=== PATIENT | female | born 1935 | race Caucasian/White ===

== ENCOUNTER 2016-08-26 07:07 | Day surgery (SDC) | payer BC ==
[2016-08-10 13:44] VITALS: BMI 27.0
--- NOTE | 2016-08-10 14:30 | PAT Medication Instructions ---
Service Date Aug 10, 2016. Current Home Medication List Acetaminophen (Tylenol), 1,000 MG PO BID PRN Allopurinol (Zyloprim *), 1 TAB PO QAM Aspirin (Aspirin *), 1 TAB PO QAM Calcium/Vitamin D (Os-Rigoberto 500 Plus D), 1 TAB PO QAM Ezetimibe/Simvastatin (Vytorin 10MG/40MG), 1 TAB PO HS Furosemide (Lasix), 1 MG PO PRN Isosorbide Dinitrate (Isordil), 1 TAB PO QAM Metoprolol Tartrate (Lopressor) (Lopressor), 25 MG PO BID Nitroglycerin (Nitrostat), 0.4 MG UT PRN Prednisolone Acetate (Ophth) (Pred Forte 1% Oph), 1 DROPS OPR BID Medication Instructions For Your Scheduled Surgery Aspirin (Aspirin *), 1 TAB PO QAM (patient will check with cardio for instructions) Nitroglycerin (Nitrostat), 0.4 MG UT PRN (if needed) - Hold the following medications the morning of surgery: Furosemide (Lasix), 1 MG PO PRN Calcium/Vitamin D (Os-Rigoberto 500 Plus D), 1 TAB PO QAM - Take the following medications the morning of surgery with a sip of water: Prednisolone Acetate (Ophth) (Pred Forte 1% Oph), 1 DROPS OPR BID Metoprolol Tartrate (Lopressor) (Lopressor), 25 MG PO BID Isosorbide Dinitrate (Isordil), 1 TAB PO QAM Allopurinol (Zyloprim *), 1 TAB PO QAM Acetaminophen (Tylenol), 1,000 MG PO BID PRN (if needed) - Take the following medications as scheduled the night before surgery: Prednisolone Acetate (Ophth) (Pred Forte 1% Oph), 1 DROPS OPR BID Metoprolol Tartrate (Lopressor) (Lopressor), 25 MG PO BID Ezetimibe/Simvastatin (Vytorin 10MG/40MG), 1 TAB PO HS Acetaminophen (Tylenol), 1,000 MG PO BID PRN : If you have any questions please call us at [phone] or [phone] ( [place]) or [phone]
[2016-08-10 14:58] LABS: BASO % 0.3 %; BASO ABS # 0.02 K/uL (0-0.2); COMPLETE YES; EOS % 2.1 %; HEMATOCRIT 39.5 % (37-47); IG% 0.3 %; LYMPH % 22.4 %; LYMPH ABS # 1.73 K/uL (1.2-3.4); MEAN CELL VOLUME 93.6 fL (80-100); MEAN CORPUSCULAR HGB CONC 33.2 g/dl (32-36); MEAN PLATELET VOLUME 10.5 fL (7.4-10.4); MONO % 12.1 %; NEUT % 62.8 %; PLATELET COUNT 107 K/uL (130-400); RED BLOOD COUNT 4.22 M/uL (4.2-5.4); WHITE BLOOD COUNT 7.71 K/uL (4.8-10.8)
[2016-08-10 15:12] LABS: PARTIAL THROMBOPLASTIN RATIO 1.1; PROTHROMBIN TIME (PATIENT) 10.4 SECONDS (9.0-12.0)
[2016-08-10 15:24] LABS: BUN/CREATININE RATIO 24.3 (10-20); CREATININE 0.87 mg/dl (0.60-1.20); POTASSIUM 4.5 mmol/L (3.5-5.1)
[~2016-08-26] VITALS: Ht 157.5 cm; Wt 68.3 kg
[~2016-08-26 07:07] MED LIST: ACET-1256 PO; ALL300 PO; ASPEC325 PO; CALC500C70 PO; CLINDAMYCIN 600 MG/54 ML D5W 54 ML IV SCH; EZET10TA41 PO; FURO-85 PO; ISOS30TA51 PO; LACTATED RINGER'S 1000ML IV SCH; METO25TA56 PO; NTRGSL/4 UT; PRED1SUS3 OPR
[2016-08-26] MEDS ORDERED: FENTANYL CITRATE INJ 50 MCG/1 ML 2 ML VIAL ONE (07:40)
[2016-08-26 08:04] VITALS: BP 121/84; PULSE 41; TEMP 36.5; O2SAT 94; Ht 157.5 cm; Wt 68.3 kg
[2016-08-26] MEDS ORDERED: PROPOFOL IV EMULSION 10 MG/ML 20 ML VIAL IV ONE (08:08)
[2016-08-26] MEDS ORDERED: LIDOCAINE HCL 2% 2 ML VIAL (20MG/ML) ONE (08:08)
[2016-08-26] MEDS ORDERED: ONDANSETRON INJ 2 MG/ML 2 ML VIAL ONE (08:36)
[2016-08-26] MEDS ORDERED: DEXAMETHASONE SOD INJ 4 MG/ML VIAL ONE (08:36)
[2016-08-26] MEDS ORDERED: PHENYLEPHRINE 100MCG/ML 5ML SYR IV PRN (08:45)
[2016-08-26] MEDS ORDERED: NALOXONE HCL 0.4 MG/1 ML VIAL/CARP IV PRN (08:45)
[2016-08-26] MEDS ORDERED: EpHEDrine SULFATE INJ 50 MG/ML AMP IV PRN (08:45)
[2016-08-26] MEDS ORDERED: HYDROmorphone INJ 2 MG/ML SYR/VIAL IV PRN (08:45)
[2016-08-26] MEDS ORDERED: ATROPINE SULFATE 0.1 MG/ML 5ML SYR IV PRN (08:45)
[2016-08-26] MEDS ORDERED: FLUMAZENIL 0.1 MG/1 ML 10 ML VIAL IV PRN (08:45)
[2016-08-26] MEDS ORDERED: MEPERIDINE HCL 25 MG/ML CARP IV PRN (08:45)
[2016-08-26] MEDS ORDERED: LABETALOL HCL IV 5 MG/ML 20ML IV PRN (08:45)
[2016-08-26] MEDS ORDERED: ONDANSETRON INJ 2 MG/ML 2 ML VIAL IV PRN ×2 (08:45→10:00)
--- NOTE | 2016-08-26 08:54 | History & Physical Bridge Note ---
H&P Re-Evaluation Bridge Note: I have examined the patient, reviewed the History & Physical and in the interval since the performance of the History & Physical I have noted the following changes of clinical significance: No changes noted
[2016-08-26] MEDS ORDERED: HYDR-5688 PO (08:57)
--- NOTE | 2016-08-26 08:59 | Discharge Instructions ---
Discharge Instructions Admission Reason for Admission: Right Inguinal Hernia Discharge Discharge Diagnosis / Problem: right inguinal hernia Discharge Goals Goal(s): Decrease discomfort, Improve function Activity Recommendations Activity Limitations: as noted below Lifting Limitations: no more than 10 pounds Exercise/Sports Limitations: until after follow-up appointment Shower/Bathe: tomorrow . Instructions / Follow-Up Instructions / Follow-Up follow up with Dr. Quijano in 1-2 weeks Current Hospital Diet Patient's current hospital diet: Discharge Diet Recommended Diet: Regular Diet Pending Studies Studies pending at discharge: no Medical Emergencies . Who to Call and When: Medical Emergencies: If at any time you feel your situation is an emergency, please call 911 immediately. . Non-Emergent Contact Non-Emergency issues call your: Primary Care Provider, Surgeon Call Non-Emergent contact if: temperature is above 101, your pain is not controlled, wound has increased drainage, wound has increased redness . "Provider Documentation" section prepared by Je Quijano. VTE Core Measure Inpt VTE Proph given/why not?: Unfractionated heparin SQ
[2016-08-26] MEDS ORDERED: PHENYLEPHRINE 100MCG/ML 5ML SYR ONE (09:20)
[2016-08-26] MEDS ORDERED: BUPIVACAINE/EPINEPHRINE 0.5% MPF 1:200,000 30 ML VIAL INJ ONE (09:45)
--- NOTE | 2016-08-26 09:46 | [facility] Operative Report ---
Operative Report Operative Date Aug 26, 2016. Pre-Operative Diagnosis Right inguinal hernia Post-Operative Diagnosis right inguinal hernia Procedure(s) Performed open RIH repair with mesh Surgeon Dr Quijano Human Development Professor Surgeon(s) Raul Acosta PA-C Estimated Blood Loss 10ML Findings right inguinal hernia Specimens NONE Anesthesia LMA Complication(s) None Disposition Recovery Room / PACU I attest to the content of the Intraoperative Record and any orders documented therein. Any exceptions are noted below.
[2016-08-26] MEDS ORDERED: LACTATED RINGER'S 1000ML 1,000 ML IV SCH (09:57)
[2016-08-26] MEDS ORDERED: HYDROCODONE/ACETAMOPHEN 5/325MG TAB PO PRN (10:00)
[2016-08-26] MEDS ORDERED: MoRPHine SULFATE 4 MG/ML 1 ML CARP\\VIAL IV PRN (10:00)
[2016-08-26] MEDS: FENTANYL CITRATE INJ 50 MCG/1 ML 2 ML VIAL IV PRN ×2 (10:05→10:10)
--- NOTE | 2016-08-26 10:34 | Anesthesiology Progress Note ---
Anesthesia Post Op Note Date & Time Aug 26, 2016 at 10:33 Vital Signs Pain Intensity: 2 Vital Signs Past 12 Hours Date Time Temp Pulse Resp B/P Pulse Ox O2 Delivery O2 Flow Rate FiO2 08/26/16 10:30 36.4 60 16 113/57 95 Room Air 08/26/16 10:20 60 16 104/59 95 Mask 10 08/26/16 10:10 60 16 107/61 98 Mask 10 08/26/16 10:01 36.6 67 16 135/77 100 Mask 10 08/26/16 08:04 36.5 41 20 121/84 94 Room Air Notes Mental Status: alert / awake / arousable, participated in evaluation Pt Amnestic to Procedure: Yes Nausea / Vomiting: adequately controlled Pain: adequately controlled Airway Patency, RR, SpO2: stable & adequate BP & HR: stable & adequate Hydration State: stable & adequate Anesthetic Complications: no major complications apparent
[2016-08-26 10:45] VITALS: BP 106/57; PULSE 61; TEMP 36.5; O2SAT 92
--- NOTE | 2016-08-26 10:49 | OPERATIVE REPORT ---
DATE OF OPERATION: 08/26/2016 PREOPERATIVE DIAGNOSIS: Symptomatic right inguinal hernia. POSTOPERATIVE DIAGNOSIS: Same. PROCEDURE: Open right inguinal hernia repair with mesh. SURGEON: Dr. Quijano. MAP CLERK: Cruz Acosta PA-C. ESTIMATED BLOOD LOSS: 10 mL. COMPLICATIONS: No immediate. ANESTHESIA: General. The patient tolerated the procedure well. OPERATION AND FINDINGS: OPERATIVE NOTE: After informed consent was obtained, the patient was taken to the operating suite, placed in supine position. After successful placement of laryngeal mask airway the right lower quadrant was sterilely prepped and draped in usual fashion. An inguinal incision was made with an 11 blade scalpel and carried down through the soft tissue using electrocautery. The external oblique aponeurosis was skeletonized. It was opened with a fresh scalpel and incised distally through the external ring using Metzenbaum scissors as well as for several centimeters proximally. Once in the inguinal canal we her round ligament from the floor of the canal. There was a very large chronic hernia sac extending almost down into the vagina. We were able to grab the sac and use traction, countertraction and a little bit of electrocautery to slowly tease it away from surrounding structures. Because of its intermittent nature with the round ligament, we we decided to go ahead and divide the round ligament. After doing this we were then able to easily reduce the hernia sac back into the abdominal cavity. After doing that we controlled several small bleeding points using electrocautery. We thoroughly irrigated the inguinal canal. We used a piece of polypropylene mesh as an onlay securing it distally to Brennan's ligament laterally along the shelving portion of Poupart's ligament and medially along the midline abdominal musculature. The mesh laid nice and flat and tension free. Once this was done, we thoroughly irrigated the wound. I used some Marcaine around the edges of the mesh for postoperative analgesia. I then closed the external oblique aponeurosis using 2-0 Vicryl in a running fashion. Soft tissue was irrigated and closed using 3-0 Vicryl and 4-0 Monocryl. Some additional Marcaine was injected around the skin and glue was used as a dressing. The patient was awakened, extubated, and transferred to recovery in stable condition. I attest to the content of the Intraoperative Record and any orders documented therein. Any exceptio ns are noted below.
[2016-08-26 11:15] VITALS: BP 107/58; PULSE 61; O2SAT 96
[2016-08-26 11:45] VITALS: BP 100/51; PULSE 62; TEMP 36.5; O2SAT 98
== END 2016-08-26 12:20 | disposition home or self-care (01) ==
LOC: C.ACU 07:07
PROVIDERS: ATTEND Surgery
DX: K40.90 Unilateral inguinal hernia, without obstruction or gangrene, not specified as recurrent (principal); I20.9 Angina pectoris, unspecified; N18.2 Chronic kidney disease, stage 2 (mild); I45.9 Conduction disorder, unspecified; M10.9 Gout, unspecified; D75.82 Heparin induced thrombocytopenia (HIT); E78.00 Pure hypercholesterolemia, unspecified; I34.0 Nonrheumatic mitral (valve) insufficiency; I44.1 Atrioventricular block, second degree; M85.80 Other specified disorders of bone density and structure, unspecified site; I73.9 Peripheral vascular disease, unspecified; E55.9 Vitamin D deficiency, unspecified

== ENCOUNTER → 2016-10-13 | Outpatient (CLI) | payer BC ==
[~2016-10-13] MED LIST changes: +ASPI325T45 PO; -CLINDAMYCIN 600 MG/54 ML D5W 54 ML IV SCH; +HYDR-5688 PO; -LACTATED RINGER'S 1000ML IV SCH; +OXYC-57 PO
--- NOTE | 2016-10-13 12:37 | MAMMOGRAPHY REPORT ---
BILATERAL DIGITAL SCREENING MAMMOGRAM WITH CAD: 10/13/2016 TECHNIQUE: Current study was also evaluated with a Computer Aided Detection (CAD) system. Bilatera l CC and MLO views were obtained. COMPARISON: Comparison is made to exams dated: 10/13/2015 mammogram, 10/11/2014 mammogram, 10/09/2012 mammogram, 10/05/2010 mammogram, 10/10/2013 mammogram, and 10/06/2011 mammogram - [facility]. BREAST COMPOSITION: The tissue of both breasts is almost entirely fatty. FINDINGS: No suspicious masses, calcifications, or areas of architectural distortion are noted in e ither breast. There has been no significant interval change compared to prior exams. IMPRESSION: ACR BI-RADS CATEGORY 1: NEGATIVE There is no mammographic evidence of malignancy. A 1 year screening mammogram is recommended. The p atient will receive written notification of the results. Approximately 10% of breast cancers are not detected with mammography. A negative mammographic repor t should not delay biopsy if a clinically suggestive mass is present. Serene Frank M.D. ah/:10/13/2016 12:03:02 Animal Care Attendant: Carolynn BAÑUELOS(R)(M), [facility] letter sent: Normal 1/2 BI-RADS Code: ACR BI-RADS Category 1: Negative
== END | disposition home or self-care (01) ==
LOC: EDBD → C.MAMM 11:06
PROVIDERS: ATTEND Obstetrics & Gynecology
DX: Z12.31 Encounter for screening mammogram for malignant neoplasm of breast (principal); I10 Essential (primary) hypertension; E55.9 Vitamin D deficiency, unspecified; R80.9 Proteinuria, unspecified; N18.2 Chronic kidney disease, stage 2 (mild)

== ENCOUNTER → 2016-10-13 | Outpatient (CLI) | payer BC ==
[2016-10-13 14:16] LABS: MEAN CELL VOLUME 93.2 fL (80-100); MEAN CORPUSCULAR HEMOGLOBIN 30.7 pg (25-34); MEAN CORPUSCULAR HGB CONC 32.9 g/dl (32-36); MEAN PLATELET VOLUME 10.8 fL (7.4-10.4); PLATELET COUNT 118 K/uL (130-400)
[2016-10-13 14:52] LABS: URINE APPEARANCE CLEAR (CLEAR); URINE BILIRUBIN NEG (NEG); URINE COLOR YELLOW; URINE NITRITE NEG (NEG); URINE SPECIFIC GRAVITY 1.014 (1.000-1.030); UROBILINOGEN NEG (NEG)
[2016-10-13 14:57] LABS: MANUAL MICROSCOPIC REQUIRED? NO; REVIEW REQ? NO
[2016-10-13 15:10] LABS: BLOOD UREA NITROGEN 25 mg/dl (7-18); BUN/CREATININE RATIO 27.7 (10-20); CALCIUM 9.2 mg/dl (8.5-10.1); CARBON DIOXIDE 29 mmol/L (21-32); CHLORIDE 106 mmol/L (98-107); CREATININE 0.89 mg/dl (0.60-1.20); GLUCOSE 72 mg/dl (70-99); POTASSIUM 4.6 mmol/L (3.5-5.1); SODIUM 143 mmol/L (136-145)
[2016-10-13 15:11] LABS: PHOSPHORUS 2.3 mg/dl (2.5-4.9)
[2016-10-13 15:21] LABS: URINE PROTIEN/CREAT RATIO 0.4 (0-0.2); URINE TOTAL PROTEIN 17.1 mg/dl (0-11.9)
== END | disposition home or self-care (01) ==
LOC: C.LAB1850 13:16
PROVIDERS: ATTEND Internal Medicine Nephrology
DX: I10 Essential (primary) hypertension (principal); R80.9 Proteinuria, unspecified; E55.9 Vitamin D deficiency, unspecified; N18.2 Chronic kidney disease, stage 2 (mild)

== ENCOUNTER → 2017-02-02 | Outpatient (CLI) | payer BC ==
[~2017-02-02] MED LIST changes: -ISOS30TA51 PO; +ISR/30 PO
== END | disposition home or self-care (01) ==
LOC: C.PAPS 14:30
PROVIDERS: ATTEND Obstetrics & Gynecology
DX: Z12.4 Encounter for screening for malignant neoplasm of cervix (principal)

== ENCOUNTER 2017-02-13 13:50 | Inpatient (IN) | payer BC, OTHER ==
[~2017-02-13] VITALS: Ht 157.5 cm; Wt 70.0 kg
[~2017-02-13 13:50] MED LIST changes: -ASPI325T45 PO; +ISOS30TA51 PO; -ISR/30 PO; -OXYC-57 PO
[2017-02-13] MEDS ORDERED: ASPIRIN 81 MG CHEW PO STA (14:10)
[2017-02-13] MEDS ORDERED: ONDANSETRON INJ 2 MG/ML 2 ML VIAL IV STA (14:20)
[2017-02-13] MEDS ORDERED: FENTANYL CITRATE INJ 50 MCG/1 ML 2 ML VIAL IV STA (14:20)
--- NOTE | 2017-02-13 14:25 | EMERGENCY ROOM VISIT NOTE ---
History Report prepared by Ligiaibmandy: Reji Navarrete Under the Supervision of: Dr. Renée Sinha M.D. First contact with patient: 14:09 Chief Complaint: CARDIAC ASSESSMENT Stated Complaint: CRAMPS IN CHEST AND STOMACH Nursing Triage Summary: pt to the ED with c/o epigastric pain and cramping since yesterday and today started to have nausea History of Present Illness The patient is an 81 year old female who presents to the Emergency Room with complaints of persistent epigastric abdominal pain since yesterday. The patient describes sharp pain. The abdomen is not painful to touch. The pain does not move. The patient also complains of chills that started upon arrival to the ED, per family. She did have diarrhea yesterday morning but not since then. She states that she is breathing fast secondary to chills. The patient denies fevers , chest pain, radiation to the arms or jaw, back pain, nausea, or vomiting. The patient has a history of [place] and has a pacemaker. Family of the patient notes that she was bereaved approximately one year ago. Source of History: patient, family Onset: yesterday Position: abdomen (epigastric) Quality: sharp Timing: other (persistent) Associated Symptoms: + chills, + diarrhea, No fevers, No chest pain, No nausea, No vomiting, No back pain Review of Systems See HPI for pertinent positives & negatives. A total of 10 systems reviewed and were otherwise negative. 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 (13) Mitral Valve Disorder (14) Old Myocardial Infarct (15) Osteoporosis Nos (16) Pancreatitis Family History No pertinent family history Social History Smoking Status: Former Smoker Alcohol Use: none Marital Status: Occupation Status: retired Current/Historical Medications Scheduled Allopurinol (Allopurinol), 300 MG PO DAILY Aspirin (Aspirin), 325 MG PO DAILY Calcium/Vitamin D (Os-Rigoberto 500 Plus D), 1 TAB PO QAM Ezetimibe/Simvastatin (Vytorin 10MG/40MG), 1 TAB PO HS Furosemide (Lasix), 20 MG PO DAILY Isosorbide Dinitrate (Isordil), 30 MG PO QAM Metoprolol Tartrate (Lopressor) (Lopressor), 25 MG PO BID Nitroglycerin (Nitrostat), 0.4 MG UT PRN Prednisolone Acetate (Ophth) (Pred Forte 1% Oph), 1 DROPS OPR BID Scheduled PRN Acetaminophen (Tylenol), 1,000 MG PO BID PRN Allergies Coded Allergies: Penicillins (Verified Allergy, Intermediate, ITCHING, SYNCOPE, 02/13/17) Heparin (Verified Adverse Reaction, Unknown, NEUTROPENIA, 02/13/17) Physical Exam Vital Signs Date Time Temp Pulse Resp B/P (MAP) Pulse Ox O2 Delivery O2 Flow Rate FiO2 02/13/17 18:05 72 02/13/17 17:39 74 18 100/47 96 Nasal Cannula 2.0 02/13/17 16:26 67 18 99/53 98 Nasal Cannula 2.0 02/13/17 15:04 61 18 110/55 96 Nasal Cannula 2.0 02/13/17 14:40 96 Nasal Cannula 3.0 02/13/17 14:07 90 02/13/17 13:51 36.6 93 18 158/71 96 Room Air Physical Exam Vital signs reviewed. General: Elderly and somewhat ill-appearing female, rigors noted, in no significant distress. HEENT: No scleral icterus, PERRLA, neck supple. Atraumatic. Cardiovascular: Regular rate and rhythm, no extra sounds. Pacemaker present left anterior chest. Pulmonary: Clear to auscultation bilaterally, normal work of breathing. Abdomen: Mild diffuse tenderness to the abdomen, no rebound or guarding. Musculoskeletal: Atraumatic, no peripheral edema. Neurologic: Patient awake alert and oriented x 3, full strength in all 4 extremities. Cranial nerves 2 through 12 grossly intact. Skin: Warm, dry, no rash Medical Decision & Procedures ER Provider Diagnostic Interpretation: X-ray results as stated below per interpretation by me and the radiologist: Radiology results as stated below per my review and radiologist interpretation: SINGLE VIEW CHEST CLINICAL HISTORY: Atypical chest pain. FINDINGS: An AP, portable, upright chest radiograph is compared to study dated 12/16/2015. The examination is degraded by portable technique and patient rotation. A 2-lead cardiac pacemaker is unchanged in position and partially obscures the left upper chest. The heart is enlarged and there is atherosclerotic calcification of the thoracic aorta. There is mild congestion of the central pulmonary vasculature. Bibasilar atelectasis is noted. No airspace consolidation, large pleural effusion, or pneumothorax is seen. The skeletal structures are osteopenic. The bony thorax is grossly intact. IMPRESSION: 1. Cardiomegaly and cardiac pacemaker. There is mild pulmonary vascular congestion. 2. No airspace consolidation is seen typical for pneumonia and no large pleural effusion is identified. Electronically signed by: Remberto Baker M.D. 02/13/2017 2:49 PM Dictated Date/Time: 02/13/2017 2:48 PM KUB CLINICAL HISTORY: Generalized abdominal pain. FINDINGS: An AP, portable, supine abdominal radiograph is correlated with abdominal CT dated 01/08/2014. There is a nonobstructed abdominal bowel gas pattern noting moderate colonic fecal retention. No evidence of intraperitoneal free air is seen on this supine examination. There are no abnormal abdominal calcifications. The skeletal structures are osteopenic. Advanced lumbosacral spondylosis is noted. The heart is enlarged and pacemaker leads are observed. IMPRESSION: Nonobstructed abdominal bowel gas pattern noting moderate constipation. Electronically signed by: Remberto Baker M.D. 02/13/2017 2:48 PM Dictated Date/Time: 02/13/2017 2:47 PM ULTRASOUND RIGHT UPPER QUADRANT ABDOMEN CLINICAL HISTORY: Epigastric abdominal pain. COMPARISON STUDY: Abdominal CT dated 01/08/2014. KUB dated 02/13/2017. TECHNIQUE: Real-time, grayscale, and color flow sonography of the right upper quadrant of the abdomen was performed. Images are reviewed in the transverse and longitudinal planes. FINDINGS: Liver: The liver is normal in size and slightly heterogeneous in echotexture. There is mild central intrahepatic biliary ductal dilatation. The main portal vein is patent. Gallbladder: The gallbladder is distended. No shadowing gallstones are seen.. The gallbladder wall is thickened and edematous measuring up to 5 mm. Minimal sludge is noted. Trace pericholecystic fluid is identified. A sonographic Menchaca's sign is equivocal as the patient received analgesia. The common bile duct measures up to 0.6 cm in diameter. Pancreas: Visualized portions of the pancreatic head and body are normal in appearance. The splenic vein is patent. Right kidney: Survey images of the right kidney demonstrate cortical atrophy. There is no hydronephrosis. Ascites: None. IMPRESSION: The gallbladder is distended, with associated gallbladder wall thickening and edema. Pericholecystic fluid is noted. No shadowing gallstones are identified and a sonographic Menchaca's sign is equivocal. Findings are concerning for acute cholecystitis. Surgical consultation is advised. Consider a nuclear hepatobiliary scan for further assessment if cholecystitis does not fit the clinical presentation. Electronically signed by: Remberto Baker M.D. 02/13/2017 5:03 PM Dictated Date/Time: 02/13/2017 4:58 PM Laboratory Results Test 02/13/17 14:08 02/13/17 14:18 02/13/17 14:58 Direct Bilirubin 2.2 mg/dl (0-0.2) Total Creatine Kinase 73 U/L (26-192) Creatine Kinase MB 1.2 ng/ml (0.5-3.6) Creatine Kinase MB Ratio 1.6 (0-3.0) Bedside Troponin I < 0.030 ng/ml (0-0.045) Immature Granulocyte % (Auto) 0.5 % White Blood Count 9.53 K/uL (4.8-10.8) Red Blood Count 4.30 M/uL (4.2-5.4) Hemoglobin 13.7 g/dL (12.0-16.0) Hematocrit 40.9 % (37-47) Mean Corpuscular Volume 95.1 fL (80-100) Mean Corpuscular Hemoglobin 31.9 pg (25-34) Mean Corpuscular Hemoglobin Concent 33.5 g/dl (32-36) Platelet Count 76 K/uL (130-400) Mean Platelet Volume 10.9 fL (7.4-10.4) Neutrophils (%) (Auto) 96.2 % Lymphocytes (%) (Auto) 2.0 % Monocytes (%) (Auto) 1.2 % Eosinophils (%) (Auto) 0.0 % Basophils (%) (Auto) 0.1 % Neutrophils # (Auto) 9.17 K/uL (1.4-6.5) Lymphocytes # (Auto) 0.19 K/uL (1.2-3.4) Monocytes # (Auto) 0.11 K/uL (0.11-0.59) Eosinophils # (Auto) 0.00 K/uL (0-0.5) Basophils # (Auto) 0.01 K/uL (0-0.2) Immature Granulocyte # (Auto) 0.05 K/uL (0.00-0.02) Laboratory results per my review. Medications Administered Medications (Trade) Dose Ordered Sig/Casey Route Start Time Stop Time Status Last Admin Dose Admin Fentanyl Citrate (Fentanyl Inj) 50 mcg NOW STAT IV 02/13/17 14:20 02/13/17 14:21 DC 02/13/17 14:20 50 MCG Ondansetron HCl (Zofran Inj) 4 mg NOW STAT IV 02/13/17 14:20 02/13/17 14:21 DC 02/13/17 14:20 4 MG Ciprofloxacin/ Dextrose (Cipro / D5W) 400 mg NOW STAT IV 02/13/17 15:19 02/13/17 15:20 DC 02/13/17 16:15 400 MG Metronidazole (Flagyl / Nss) 500 mg NOW STAT IV 02/13/17 15:19 02/13/17 15:20 DC 02/13/17 16:16 500 MG Sodium Chloride 1,000 ml @ 150 mls/hr Q6H40M IV 02/13/17 17:39 03/15/17 17:38 02/14/17 19:13 150 MLS/HR Acetaminophen 650 mg/Empty Bag 65 ml @ 260 mls/hr Q6H PRN IV 02/13/17 17:45 02/14/17 12:21 DC 02/14/17 11:48 260 MLS/HR ECG Indication: abdominal pain Rate (beats per minute): 99 Rhythm: other (atrially paced rhythm with prolonged AV conduction) Findings: other (previous inferior infarct and anterolateral infarct) ED Course 1415: Past medical records reviewed. The patient was evaluated in room C8. A complete history and physical examination was performed. 1420: Zofran 4 mg IV, Fentanyl 50 mcg IV. 1519: Flagyl / NSS 500 mg IV, Cipro / D5w 400 mg IV. 1734: Discussed the case with Dr. Odell, [facility]. The patient will be evaluated. 1735: Updated the patient. She understands and agrees with the plan. 174: Discussed the case with Dr. Dexter, General Surgeon. He is aware of the case. 175: Discussed the case with Dr. San, Telegraph Office Manager, He is aware of the case. Medical Decision Differential diagnosis: Etiologies such as acute coronary syndrome, appendicitis, diverticulitis, PUD, biliary pathology, UTI, pancreatitis, obstruction, mesenteric ischemia, aortic pathology, infections, inflammatory bowel disease, renal colic, as well as others were entertained. Medication Reconciliation: I attest that I have personally reviewed the patient' s current medication list. Blood Pressure Screening: Patient was found to have low blood pressure on screening and does not require follow-up. This patient was evaluated and appeared to be in no significant distress. IV access was obtained and laboratory work was drawn. The patient was placed on the barrel header and found to be in a paced rhythm. Patient's laboratory work reveals an obstructive biliary picture with an elevated lipase consistent with pancreatitis. Ultrasound was performed and reveals no clear stone obstructing. Gallbladder is edematous and consistent with acute cholecystitis. I did explain the findings to the patient and her son. She was continued on IV hydration, feeling relieved after IV fentanyl and Zofran. Patient was started on IV Cipro and Flagyl secondary to the penicillin allergy. Case was discussed with Dr. Dexter in general surgery, Dr. San of gastroenterology and Dr. Odell of the hospitalist service. MRCP was originally ordered however the patient is not able to have this study secondary to her pacemaker. Consults Time Called: 173 Consulting Physician: Dr. Odell, [facility] [place] Returned Call: 173 The patient will be evaluated. Additional Consults: Time Called: 1730 Consulted Physician: Dr. Dexter, General Surgeon Returned Call: [phone] Additional Comments: He is aware of the case. Time Called: 1730 Consulted Physician: Dr. San, Telegraph Office Manager Returned Call: [phone] Additional Comments: He is aware of the case. Impression Primary Impression: Acute pancreatitis Additional Impression: Cholecystitis Scribe Attestation The scribe's documentation has been prepared under my direction and personally reviewed by me in its entirety. I confirm that the note above accurately reflects all work, treatment, procedures, and medical decision making performed by me. Departure Information Dispostion Being Evaluated By Hospitalist Referrals Fco Vazquez M.D. (PCP) Patient Instructions [facility] Problem Qualifiers Primary Impression: Acute pancreatitis Pancreatitis type: biliary Acute pancreatitis complication: unspecified Qualified Codes: K85.10 - Biliary acute pancreatitis without necrosis or infection
[2017-02-13 14:26] LABS: POTASSIUM 3.4 mmol/L (3.5-5.1)
[2017-02-13 14:31] LABS: CALCIUM 9.1 mg/dl (8.5-10.1); CREATININE 1.2 mg/dl (0.60-1.20)
[2017-02-13 14:39] LABS: CKMB/CK RATIO 1.6 (0-3.0)
--- NOTE | 2017-02-13 14:49 | DIAGNOSTIC IMAGING REPORT ---
KUB CLINICAL HISTORY: Generalized abdominal pain. FINDINGS: An AP, portable, supine abdominal radiograph is correlated with abdominal CT dated 01/08/2014. There is a nonobstructed abdominal bowel gas pattern noting moderate colonic fecal retention. No evidence of intraperitoneal free air is seen on this supine examination. There are no abnormal abdominal calcifications. The skeletal structures are osteopenic. Advanced lumbosacral spondylosis is noted. The heart is enlarged and pacemaker leads are observed. IMPRESSION: Nonobstructed abdominal bowel gas pattern noting moderate constipation. Electronically signed by: Remberto Baker M.D. 02/13/2017 2:48 PM Dictated Date/Time: 02/13/2017 2:47 PM
--- NOTE | 2017-02-13 14:51 | DIAGNOSTIC IMAGING REPORT ---
SINGLE VIEW CHEST CLINICAL HISTORY: Atypical chest pain. FINDINGS: An AP, portable, upright chest radiograph is compared to study dated 12/16/2015. The examination is degraded by portable technique and patient rotation. A 2-lead cardiac pacemaker is unchanged in position and partially obscures the left upper chest. The heart is enlarged and there is atherosclerotic calcification of the thoracic aorta. There is mild congestion of the central pulmonary vasculature. Bibasilar atelectasis is noted. No airspace consolidation, large pleural effusion, or pneumothorax is seen. The skeletal structures are osteopenic. The bony thorax is grossly intact. IMPRESSION: 1. Cardiomegaly and cardiac pacemaker. There is mild pulmonary vascular congestion. 2. No airspace consolidation is seen typical for pneumonia and no large pleural effusion is identified. Electronically signed by: Remberto Baker M.D. 02/13/2017 2:49 PM Dictated Date/Time: 02/13/2017 2:48 PM
[2017-02-13] MEDS ORDERED: ALL300 PO (15:05)
[2017-02-13] MEDS ORDERED: ASPI325T45 PO (15:06)
[2017-02-13] MEDS ORDERED: METRONIDAZOLE 500MG / 100ML NSS IV STA (15:19)
[2017-02-13] MEDS ORDERED: CIPROFLOXACIN 400MG / 200ML D5W IV STA (15:19)
[2017-02-13 15:27] LABS: HEMATOCRIT 40.9 % (37-47); MEAN CELL VOLUME 95.1 fL (80-100); MEAN CORPUSCULAR HEMOGLOBIN 31.9 pg (25-34); MEAN CORPUSCULAR HGB CONC 33.5 g/dl (32-36); MEAN PLATELET VOLUME 10.9 fL (7.4-10.4); PLATELET COUNT 76 K/uL (130-400); WHITE BLOOD COUNT 9.53 K/uL (4.8-10.8)
[2017-02-13 15:53] LABS: BASO % 0.1 %; BASO ABS # 0.01 K/uL (0-0.2); COMPLETE YES; IG% 0.5 %; LYMPH ABS # 0.19 K/uL (1.2-3.4); MONO % 1.2 %; NEUT % 96.2 %; PLT ESTIMATE DECREASED
--- NOTE | 2017-02-13 17:04 | DIAGNOSTIC IMAGING REPORT ---
ULTRASOUND RIGHT UPPER QUADRANT ABDOMEN CLINICAL HISTORY: Epigastric abdominal pain. COMPARISON STUDY: Abdominal CT dated 01/08/2014. KUB dated 02/13/2017. TECHNIQUE: Real-time, grayscale, and color flow sonography of the right upper quadrant of the abdomen was performed. Images are reviewed in the transverse and longitudinal planes. FINDINGS: Liver: The liver is normal in size and slightly heterogeneous in echotexture. There is mild central intrahepatic biliary ductal dilatation. The main portal vein is patent. Gallbladder: The gallbladder is distended. No shadowing gallstones are seen.. The gallbladder wall is thickened and edematous measuring up to 5 mm. Minimal sludge is noted. Trace pericholecystic fluid is identified. A sonographic Menchaca's sign is equivocal as the patient received analgesia. The common bile duct measures up to 0.6 cm in diameter. Pancreas: Visualized portions of the pancreatic head and body are normal in appearance. The splenic vein is patent. Right kidney: Survey images of the right kidney demonstrate cortical atrophy. There is no hydronephrosis. Ascites: None. IMPRESSION: The gallbladder is distended, with associated gallbladder wall thickening and edema. Pericholecystic fluid is noted. No shadowing gallstones are identified and a sonographic Menchaca's sign is equivocal. Findings are concerning for acute cholecystitis. Surgical consultation is advised. Consider a nuclear hepatobiliary scan for further assessment if cholecystitis does not fit the clinical presentation. Electronically signed by: Remberto Baker M.D. 02/13/2017 5:03 PM Dictated Date/Time: 02/13/2017 4:58 PM
[2017-02-13] MEDS ORDERED: ONDANSETRON INJ 2 MG/ML 2 ML VIAL IV PRN (17:45)
[2017-02-13] MEDS ORDERED: NITROGLYCERIN 0.4 MG SL PER TAB CHARGE SL PRN (17:45)
[2017-02-13] MEDS ORDERED: ACETAMINOPHEN IV 650 MG in EMPTY BAG 0 ML IV PRN (17:45)
[2017-02-13] MEDS ORDERED: METOPROLOL TARTRATE 1 MG/ML VIAL IV PRN (17:45)
--- NOTE | 2017-02-13 19:20 | History and Physical ---
History & Physical Date & Time of Service: Feb 13, 2017 at 19:07 Chief Complaint: Cramps In Chest And Stomach Primary Care Physician: Fco Vazquez M.D. History of Present Illness This patient presents with a 1 day history of fevers and chills abdominal pain nausea vomiting. She should No known history of gallstones. Patient was short of breath because of a low-grade temperature. The patient's pain was focally in the abdomen to right upper quadrant was crampy in nature and rated 6 out of 10. Patient was found to have cholecystitis with pancreatitis on imaging and by serology. She is recommended for intake for management of these problems Past Medical/Surgical History heart disease and cancer Family History No pertinent family history Social History Smoking Status: Former Smoker Marital Status: Occupational Status: retired Multi-Drug Resistant Organisms History of MDRO: No Allergies Coded Allergies: Penicillins (Verified Allergy, Intermediate, ITCHING, SYNCOPE, 02/13/17) Heparin (Verified Adverse Reaction, Unknown, NEUTROPENIA, 02/13/17) Home Medications Scheduled Allopurinol (Allopurinol), 300 MG PO DAILY Aspirin (Aspirin), 325 MG PO DAILY Calcium/Vitamin D (Os-Rigoberto 500 Plus D), 1 TAB PO QAM Ezetimibe/Simvastatin (Vytorin 10MG/40MG), 1 TAB PO HS Furosemide (Lasix), 20 MG PO DAILY Isosorbide Dinitrate (Isordil), 30 MG PO QAM Metoprolol Tartrate (Lopressor) (Lopressor), 25 MG PO BID Nitroglycerin (Nitrostat), 0.4 MG UT PRN Prednisolone Acetate (Ophth) (Pred Forte 1% Oph), 1 DROPS OPR BID Scheduled PRN Acetaminophen (Tylenol), 1,000 MG PO BID PRN Review of Systems ROS: well nourished well developed No double vision blurry vision No problems with speech or swallowing No palpitations, chest pain or pressure No Wheezing or breathing issues RUQ abdominal pain nausea but no vomiting or diarrhea No burning urine urine frequency or changes in color No focal joint pain or muscle pain No skin rashes or oral lesions No unusual bruising or bleeding No back pain or leg weakness No changes in memory or confusion Physical Exam Vital Signs Date Time Temp Pulse Resp B/P (MAP) Pulse Ox O2 Delivery O2 Flow Rate FiO2 02/13/17 18:05 72 02/13/17 17:39 74 18 100/47 96 Nasal Cannula 2.0 02/13/17 16:26 67 18 99/53 98 Nasal Cannula 2.0 02/13/17 15:04 61 18 110/55 96 Nasal Cannula 2.0 02/13/17 14:40 96 Nasal Cannula 3.0 02/13/17 14:07 90 02/13/17 13:51 36.6 93 18 158/71 96 Room Air General Appearance: WD/WN, + moderate distress Head: normocephalic, atraumatic Eyes: PERRL, EOMI, + pertinent finding (no icterus) Neck: supple, no JVD Respiratory/Chest: chest non-tender, lungs clear, normal breath sounds Cardiovascular: regular rate, rhythm, no murmur Abdomen/GI: soft, + tenderness (right upper quadrant and epigastric), + abnormal bowel sounds (hypoactive) Extremities/Musculoskelatal: no pedal edema, normal range of motion Neurologic/Psych: alert, oriented x 3 Diagnostics Laboratory Results Results Past 24 Hours Test 02/13/17 14:08 02/13/17 14:18 02/13/17 14:58 Range/Units Sodium Level 139 136-145 mmol/L Potassium Level 3.4 3.5-5.1 mmol/L Chloride Level 103 98-107 mmol/L Carbon Dioxide Level 25 21-32 mmol/L Anion Gap 11.0 3-11 mmol/L Blood Urea Nitrogen 19 7-18 mg/dl Creatinine 1.20 0.60-1.20 mg/dl Est Creatinine Clear Calc Drug Dose 33.3 ml/min Estimated GFR () 49.4 Estimated GFR (Non- 42.7 BUN/Creatinine Ratio 16.0 10-20 Random Glucose 106 70-99 mg/dl Calcium Level 9.1 8.5-10.1 mg/dl Total Bilirubin 3.5 0.2-1 mg/dl Direct Bilirubin 2.2 0-0.2 mg/dl Aspartate Amino Transf (AST/SGOT) 1145 15-37 U/L Alanine Aminotransferase (ALT/SGPT) 751 12-78 U/L Alkaline Phosphatase 364 45-117 U/L Total Creatine Kinase 73 26-192 U/L Creatine Kinase MB 1.2 0.5-3.6 ng/ml Creatine Kinase MB Ratio 1.6 0-3.0 Total Protein 8.2 6.4-8.2 gm/dl Albumin 3.9 3.4-5.0 gm/dl Lipase 99462 73-393 U/L Bedside Troponin I < 0.030 0-0.045 ng/ml White Blood Count 9.53 4.8-10.8 K/uL Red Blood Count 4.30 4.2-5.4 M/uL Hemoglobin 13.7 12.0-16.0 g/dL Hematocrit 40.9 37-47 % Mean Corpuscular Volume 95.1 80-100 fL Mean Corpuscular Hemoglobin 31.9 25-34 pg Mean Corpuscular Hemoglobin Concent 33.5 32-36 g/dl Platelet Count 76 130-400 K/uL Mean Platelet Volume 10.9 7.4-10.4 fL Neutrophils (%) (Auto) 96.2 % Lymphocytes (%) (Auto) 2.0 % Monocytes (%) (Auto) 1.2 % Eosinophils (%) (Auto) 0.0 % Basophils (%) (Auto) 0.1 % Neutrophils # (Auto) 9.17 1.4-6.5 K/uL Lymphocytes # (Auto) 0.19 1.2-3.4 K/uL Monocytes # (Auto) 0.11 0.11-0.59 K/uL Eosinophils # (Auto) 0.00 0-0.5 K/uL Basophils # (Auto) 0.01 0-0.2 K/uL RDW Standard Deviation 47.8 36.4-46.3 fL RDW Coefficient of Variation 13.8 11.5-14.5 % Immature Granulocyte % (Auto) 0.5 % Immature Granulocyte # (Auto) 0.05 0.00-0.02 K/uL Platelet Estimate DECREASED Microbiology Results 02/13/17 Blood Culture, Received Pending 02/13/17 Blood Culture, Received Pending Diagnostic Radiology Gallbladder ultrasound The gallbladder is distended, with associated gallbladder wall thickening and edema. Pericholecystic fluid is noted. No shadowing gallstones are identified and a sonographic Menchaca's sign is equivocal. Findings are concerning for acute cholecystitis. Surgical consultation is advised. Consider a nuclear hepatobiliary scan for further assessment if cholecystitis does not fit the clinical presentation. CXR normal Normal EKG (paced rhythm but very prolonged AV conduction) Impression Assessment and Plan 81 female with acute cholecystitis and pancreatitis The patient kept nothing by mouth, we will use Cipro and Flagyl, IV fluid, IV pain medication, IV antiemetics GI medicine will see for possible ERCP as she cannot undergo MRCP due to pacemaker. We will trend her lipase and LFTs, surgical consult Atrial fibrillation and pacemaker, since she is nothing by mouth we will use IV metoprolol, since she has such prolonged AV conduction Dr Springer will be consulted to comment on her pacemaker status and comment on her preoperative risk History of coronary artery disease, her nothing by mouth status will prevent us from giving her isosorbide, we will start Nitropatch 0.2 Given her history of heparin-induced thrombocytopenia, we will not use any DVT prevention, but if surgery was delayed significantly with use of Arixtra 2.5 mg subcutaneous daily Resuscitation Status FULL RESUSCITATION VTE Prophylaxis VTE Risk Assessment Done? Y/N: Yes Risk Level: Moderate Given or contraindicated: Drug Allergy (patient has an allergy to heparin with induced thrombocytopenia)
[2017-02-13 19:48] VITALS: BP 95/55; PULSE 75; TEMP 36.6; O2SAT 95; Ht 157.5 cm; Wt 70.0 kg
--- NOTE | 2017-02-13 20:08 | Surgery Consultation ---
Consultation Date of Consultation: Feb 13, 2017. Attending Physician: Giorgi Odell M.D. Reason for Consultation: Abdominal pain, cholecystitis, pancreatitis History of Present Illness I asked to see this 81-year-old female who presented to the emergency room with abdominal pain that began last night after eating supper. She the pain was initially a dull ache but it persisted through the night and became more intense. It is more in the upper abdomen with no side predominating. The discomfort is in her back to some degree. It is not as severe as there however. She has never had pain like this before. She denies a history of hepatitis, pancreatitis and jaundice. She had some nausea but did not vomit. She has been having normal bowel movements. There is no melena or hematochezia. She denies diarrhea and constipation. She denies dysuria and hematuria. Past Medical/Surgical History Medical Problems: (1) Acute pancreatitis Status: Acute (2) Cholecystitis Status: Acute PMH: NM Arrythmia requiring pacemaker PSH: Placement of pacemaker Pacemaker replacement X 3 Right inguinal hernia repair Family History No pertinent family history Social History Smoking Status: Former Smoker Smokeless Tobacco Use: No Alcohol Use: none Marital Status: Occupation Status: retired Allergies Coded Allergies: Penicillins (Verified Allergy, Intermediate, ITCHING, SYNCOPE, 02/13/17) Heparin (Verified Adverse Reaction, Unknown, NEUTROPENIA, 02/13/17) Home Medications Scheduled Allopurinol (Allopurinol), 300 MG PO DAILY Aspirin (Aspirin), 325 MG PO DAILY Calcium/Vitamin D (Os-Rigoberto 500 Plus D), 1 TAB PO QAM Ezetimibe/Simvastatin (Vytorin 10MG/40MG), 1 TAB PO HS Furosemide (Lasix), 20 MG PO DAILY Isosorbide Dinitrate (Isordil), 30 MG PO QAM Metoprolol Tartrate (Lopressor) (Lopressor), 25 MG PO BID Nitroglycerin (Nitrostat), 0.4 MG UT PRN Prednisolone Acetate (Ophth) (Pred Forte 1% Oph), 1 DROPS OPR BID Scheduled PRN Acetaminophen (Tylenol), 1,000 MG PO BID PRN Current Inpatient Medications Current Inpatient Medications Medications (Trade) Dose Ordered Sig/Casey Route Start Time Stop Time Status Last Admin Dose Admin Prednisolone Acetate (Pred Forte 1% Oph Susp) 1 drops BID OPR 02/13/17 21:00 03/15/17 20:59 Sodium Chloride 1,000 ml @ 100 mls/hr Q10H IV 02/13/17 17:39 03/15/17 17:38 Ondansetron HCl (Zofran Inj) 4 mg Q6H PRN IV 02/13/17 17:45 03/15/17 17:44 UNV Nitroglycerin (Nitrostat Tab) 0.4 mg UD PRN SL 02/13/17 17:45 03/15/17 17:44 UNV Nitroglycerin (Nitro-Dur 0.2 Mg/Hr Patch) 1 patch QAM TD 02/14/17 09:00 03/16/17 08:59 UNV Metoprolol Tartrate (Lopressor Iv) 5 mg Q6 IV. 02/13/17 18:00 03/15/17 17:59 UNV Metoprolol Tartrate (Lopressor Iv) 5 mg Q4 PRN IV. 02/13/17 17:45 03/15/17 17:44 UNV Ciprofloxacin/ Dextrose 400 mg/ Prmx 200 ml @ 100 mls/hr Q12@0400,1600 IV 02/14/17 04:00 02/24/17 03:59 Metronidazole 500 mg/Prmx 100 ml @ 100 mls/hr Q8H IV 02/13/17 23:00 02/23/17 22:59 Acetaminophen 650 mg/Empty Bag 65 ml @ 260 mls/hr Q6H PRN IV 02/13/17 17:45 03/15/17 17:44 UNV Review of Systems Constitutional: No fever, No chills Respiratory: No cough, No sputum Cardiovascular: No chest pain Abdomen: + problem reported (as per HPI) Genitourinary - Female: + problem reported (as per HPI) Endocrine: No fatigue Hematologic / Lymphatic: No abnormal bleeding/bruising Integumentary: No rash Physical Exam Date Time Temp Pulse Resp B/P (MAP) Pulse Ox O2 Delivery O2 Flow Rate FiO2 02/13/17 19:48 36.6 75 18 95/55 95 Nasal Cannula 2.0 02/13/17 18:05 72 02/13/17 17:39 74 18 100/47 96 Nasal Cannula 2.0 02/13/17 16:26 67 18 99/53 98 Nasal Cannula 2.0 02/13/17 15:04 61 18 110/55 96 Nasal Cannula 2.0 02/13/17 14:40 96 Nasal Cannula 3.0 02/13/17 14:07 90 02/13/17 13:51 36.6 93 18 158/71 96 Room Air General Appearance: WD/WN Head: normocephalic Neck: supple, no adenopathy Respiratory/Chest: chest non-tender, lungs clear Cardiovascular: regular rate, rhythm Abdomen/GI: normal bowel sounds Back: normal inspection, no CVA tenderness Extremities/Musculoskelatal: normal inspection Skin: normal color Laboratory Results Last 24 Hours Test 02/13/17 14:08 02/13/17 14:18 02/13/17 14:58 02/13/17 19:32 Sodium Level 139 mmol/L Potassium Level 3.4 mmol/L Chloride Level 103 mmol/L Carbon Dioxide Level 25 mmol/L Anion Gap 11.0 mmol/L Blood Urea Nitrogen 19 mg/dl Creatinine 1.20 mg/dl Est Creatinine Clear Calc Drug Dose 33.3 ml/min Estimated GFR () 49.4 Estimated GFR (Non- 42.7 BUN/Creatinine Ratio 16.0 Random Glucose 106 mg/dl Calcium Level 9.1 mg/dl Total Bilirubin 3.5 mg/dl Direct Bilirubin 2.2 mg/dl Aspartate Amino Transf (AST/SGOT) 1145 U/L Alanine Aminotransferase (ALT/SGPT) 751 U/L Alkaline Phosphatase 364 U/L Total Creatine Kinase 73 U/L Creatine Kinase MB 1.2 ng/ml Creatine Kinase MB Ratio 1.6 Total Protein 8.2 gm/dl Albumin 3.9 gm/dl Lipase 92465 U/L Bedside Troponin I < 0.030 ng/ml White Blood Count 9.53 K/uL Red Blood Count 4.30 M/uL Hemoglobin 13.7 g/dL Hematocrit 40.9 % Mean Corpuscular Volume 95.1 fL Mean Corpuscular Hemoglobin 31.9 pg Mean Corpuscular Hemoglobin Concent 33.5 g/dl Platelet Count 76 K/uL Mean Platelet Volume 10.9 fL Neutrophils (%) (Auto) 96.2 % Lymphocytes (%) (Auto) 2.0 % Monocytes (%) (Auto) 1.2 % Eosinophils (%) (Auto) 0.0 % Basophils (%) (Auto) 0.1 % Neutrophils # (Auto) 9.17 K/uL Lymphocytes # (Auto) 0.19 K/uL Monocytes # (Auto) 0.11 K/uL Eosinophils # (Auto) 0.00 K/uL Basophils # (Auto) 0.01 K/uL RDW Standard Deviation 47.8 fL RDW Coefficient of Variation 13.8 % Immature Granulocyte % (Auto) 0.5 % Immature Granulocyte # (Auto) 0.05 K/uL Platelet Estimate DECREASED Bedside Glucose 110 mg/dl ULTRASOUND RIGHT UPPER QUADRANT ABDOMEN CLINICAL HISTORY: Epigastric abdominal pain. COMPARISON STUDY: Abdominal CT dated 01/08/2014. KUB dated 02/13/2017. TECHNIQUE: Real-time, grayscale, and color flow sonography of the right upper quadrant of the abdomen was performed. Images are reviewed in the transverse and longitudinal planes. FINDINGS: Liver: The liver is normal in size and slightly heterogeneous in echotexture. There is mild central intrahepatic biliary ductal dilatation. The main portal vein is patent. Gallbladder: The gallbladder is distended. No shadowing gallstones are seen.. The gallbladder wall is thickened and edematous measuring up to 5 mm. Minimal sludge is noted. Trace pericholecystic fluid is identified. A sonographic Menchaca's sign is equivocal as the patient received analgesia. The common bile duct measures up to 0.6 cm in diameter. Pancreas: Visualized portions of the pancreatic head and body are normal in appearance. The splenic vein is patent. Right kidney: Survey images of the right kidney demonstrate cortical atrophy. There is no hydronephrosis. Ascites: None. IMPRESSION: The gallbladder is distended, with associated gallbladder wall thickening and edema. Pericholecystic fluid is noted. No shadowing gallstones are identified and a sonographic Menchaca's sign is equivocal. Findings are concerning for acute cholecystitis. Surgical consultation is advised. Consider a nuclear hepatobiliary scan for further assessment if cholecystitis does not fit the clinical presentation. Assessment & Plan This patient has abdominal pain and laboratory evidence of choledocholithiasis although none of that was seen by ultrasound. There is also evidence of cholecystitis. Her lipase is elevated. I agree with admitting the patient. I would keep her nothing by mouth. We will need to follow her liver function tests. If they decreased back towards normal he can then discuss cholecystectomy. If they do not she may need ERCP or MRCP first. Thank you for seeing this patient participate in her care. We will follow with you.
[2017-02-13] MEDS: SODIUM CHLORIDE 0.9% 1000ML 1,000 ML IV SCH (20:25)
[2017-02-13] MEDS: PrednisoLONE ACET 1% OP SUSP 5 ML BTL OPR SCH (21:00)
[2017-02-13] MEDS: METOPROLOL TARTRATE 1 MG/ML VIAL IV. SCH (21:57)
[2017-02-13] MEDS: METRONIDAZOLE / NSS 500 MG in PREMIXED NSS 100 ML IV SCH (23:08)
[2017-02-13 23:44] VITALS: BP 95/53; PULSE 75; TEMP 36.8; O2SAT 92
[2017-02-14] VITALS (9 sets, daily range): BP systolic 91–102; BP diastolic 51–67; PULSE 65–68; TEMP 36.5–36.8; O2SAT 93–97
[2017-02-14] MEDS: CIPROFLOXACIN / D5W 400 MG in PREMIXED IN D5W 200 ML IV SCH ×2 (04:13→17:31)
[2017-02-14] MEDS: SODIUM CHLORIDE 0.9% 1000ML 1,000 ML IV SCH ×4 (04:13→22:50)
[2017-02-14] MEDS: METOPROLOL TARTRATE 1 MG/ML VIAL IV. SCH ×4 (06:00→17:31)
[2017-02-14 06:39] LABS: URINE APPEARANCE CLOUDY (CLEAR); URINE COLOR ORANGE; URINE EPITHELIAL CELL AUTO >30 /lpf (0-5); URINE NITRITE POS (NEG); URINE SPECIFIC GRAVITY 1.018 (1.000-1.030); UROBILINOGEN NEG (NEG); ZZUR CULT IF INDIC CLEAN CATCH YES
[2017-02-14 06:41] LABS: URINE BILIRUBIN 2+ (NEG)
[2017-02-14 06:42] LABS: MANUAL MICROSCOPIC REQUIRED? NO; REVIEW REQ? YES
[2017-02-14] MEDS: METRONIDAZOLE / NSS 500 MG in PREMIXED NSS 100 ML IV SCH ×3 (06:44→22:50)
[2017-02-14 06:50] LABS: URINE PATH CASTS 5-10 WBC CASTS /lpf (0)
[2017-02-14 07:29] LABS: BUN/CREATININE RATIO 17.5 (10-20); CALCIUM 8.2 mg/dl (8.5-10.1); CREATININE 1.7 mg/dl (0.60-1.20); POTASSIUM 4.1 mmol/L (3.5-5.1)
[2017-02-14 07:33] LABS: ALB/GLOB RATIO 0.7 (0.9-2)
[2017-02-14] MEDS: NITROGLYCERIN 0.2 MG/HR PATCH TD SCH ×2 (09:00→09:51)
[2017-02-14] MEDS ORDERED: LACTATED RINGER'S 1000ML 1,000 ML IV ONE (09:00)
[2017-02-14] MEDS: PrednisoLONE ACET 1% OP SUSP 5 ML BTL OPR SCH ×2 (09:00→19:12)
--- NOTE | 2017-02-14 09:06 | Gastrointestinal Consultation ---
Gastrointestinal Consultation Date of Consultation: Feb 14, 2017 Attending Physician: Neville Beckman Consulting Physician: Jacque Hawkins Reason for Consultation: Possible ERCP History of Present Illness Patient is a 81 year old female who presented to ED yesterday w c/o fever, chills, RUQ abd pain, n/v, some mild SOB. On eval she was noted to have elevated LFTs & Lipase: Tbili 3.5, AST 1145, ALT 751, Lipase 94834. Xray noted mod amt of stool in colon, gallbladder u/s showed distended gallbladder w wall thickening and edema, no stones, + minimal sludge, CBD 0.6mm. She has a pacemaker thus MRCP cannot be done. She was seen by Dr. Dexter from Surgery who planned on possible cholecystectomy if her LFTs/Lipase are trending down, but if not, may need ERCP. This AM pt reports abd pain and nausea is improved. She is passing little amt of flatus. Had been NPO. Past Medical/Surgical History Medical Problems: (1) Acute pancreatitis Status: Acute (2) Cholecystitis Status: Acute Past Medical History: Dyslipidemia HTN Past Surgical History: Pacemaker placement R inguinal hernia repair Family History No pertinent family history Social History Smoking Status: Former Smoker Alcohol Use: none Marital Status: Occupation Status: retired Allergies Coded Allergies: Penicillins (Verified Allergy, Intermediate, ITCHING, SYNCOPE, 02/13/17) Heparin (Verified Adverse Reaction, Unknown, NEUTROPENIA, 02/13/17) Current Medications Home Meds and Scripts Medications Dose Route/Sig Max Daily Dose Days Date Category Aspirin 325 Mg Tab 325 Mg PO DAILY 02/13/17 Reported Allopurinol 300 Mg Tab 300 Mg PO DAILY 02/13/17 Reported Lasix (Furosemide) 20 Mg Tab 20 Mg PO DAILY 08/10/16 Reported Pred Forte 1% Oph (Prednisolone Acetate (Ophth)) 1 % Ivy 1 Drops OPR BID 08/06/16 Reported Os-Rigoberto 500 Plus D (Calcium/Vitamin D) Tab 1 Tab PO QAM 10/20/15 Reported Lopressor (Metoprolol Tartrate) 25 Mg Tab 25 Mg PO BID 10/20/15 Reported Nitrostat (Nitroglycerin) 0.4 Mg Tab 0.4 Mg UT PRN 04/05/13 Reported Tylenol (Acetaminophen) 500 Mg Tab 1,000 Mg PO BID PRN 09/19/06 Reported Vytorin 10MG/40MG (Ezetimibe/Simvastatin) Tab 1 Tab PO HS 09/19/06 Reported Isordil (Isosorbide Dinitrate) 30 Mg Tab 30 Mg PO QAM 09/19/06 Reported Review of Systems Constitutional: No fever, No chills, No sweats Respiratory: No cough, No shortness of breath Cardiac: No chest pain, No edema Abdomen: + pain, + nausea, No vomiting Skin: No rash, No itch, No jaundice 12 systems reviewed and negative except a noted Physical Exam Date Time Temp Pulse Resp B/P (MAP) Pulse Ox O2 Delivery O2 Flow Rate FiO2 02/14/17 07:54 36.6 65 16 91/51 (64) 97 02/14/17 06:00 90/56 02/14/17 04:01 36.6 68 16 91/55 (67) 94 Room Air 02/14/17 04:00 Room Air 02/14/17 00:02 Room Air 02/14/17 00:00 75 95/53 02/13/17 23:44 36.8 75 17 95/53 (67) 92 Room Air 02/13/17 21:57 76 95/59 02/13/17 19:48 36.6 75 18 95/55 95 Nasal Cannula 2.0 02/13/17 18:05 72 02/13/17 17:39 74 18 100/47 96 Nasal Cannula 2.0 02/13/17 16:26 67 18 99/53 98 Nasal Cannula 2.0 02/13/17 15:04 61 18 110/55 96 Nasal Cannula 2.0 02/13/17 14:40 96 Nasal Cannula 3.0 02/13/17 14:07 90 02/13/17 13:51 36.6 93 18 158/71 96 Room Air General Appearance: WD/WN, no apparent distress Eyes: normal inspection, PERRL, EOMI Neck: supple, no JVD, trachea midline Respiratory/Chest: normal breath sounds, no respiratory distress, no accessory muscle use Cardiovascular: regular rate, rhythm, no gallop, no murmur Abdomen: soft, + abnormal bowel sounds (hypoactive), + tenderness (RUQ, RLQ) Extremities: normal inspection, no pedal edema, no calf tenderness Neurologic/Psych: alert, normal mood/affect, oriented x 3 Skin: normal color, no jaundice, no rash Laboratory Results Last 24 Hours Test 02/13/17 14:08 02/13/17 14:18 02/13/17 14:58 02/13/17 19:32 Sodium Level 139 mmol/L Potassium Level 3.4 mmol/L Chloride Level 103 mmol/L Carbon Dioxide Level 25 mmol/L Anion Gap 11.0 mmol/L Blood Urea Nitrogen 19 mg/dl Creatinine 1.20 mg/dl Est Creatinine Clear Calc Drug Dose 33.3 ml/min Estimated GFR () 49.4 Estimated GFR (Non- 42.7 BUN/Creatinine Ratio 16.0 Random Glucose 106 mg/dl Calcium Level 9.1 mg/dl Total Bilirubin 3.5 mg/dl Direct Bilirubin 2.2 mg/dl Aspartate Amino Transf (AST/SGOT) 1145 U/L Alanine Aminotransferase (ALT/SGPT) 751 U/L Alkaline Phosphatase 364 U/L Total Creatine Kinase 73 U/L Creatine Kinase MB 1.2 ng/ml Creatine Kinase MB Ratio 1.6 Total Protein 8.2 gm/dl Albumin 3.9 gm/dl Lipase 94887 U/L Bedside Troponin I < 0.030 ng/ml White Blood Count 9.53 K/uL Red Blood Count 4.30 M/uL Hemoglobin 13.7 g/dL Hematocrit 40.9 % Mean Corpuscular Volume 95.1 fL Mean Corpuscular Hemoglobin 31.9 pg Mean Corpuscular Hemoglobin Concent 33.5 g/dl Platelet Count 76 K/uL Mean Platelet Volume 10.9 fL Neutrophils (%) (Auto) 96.2 % Lymphocytes (%) (Auto) 2.0 % Monocytes (%) (Auto) 1.2 % Eosinophils (%) (Auto) 0.0 % Basophils (%) (Auto) 0.1 % Neutrophils # (Auto) 9.17 K/uL Lymphocytes # (Auto) 0.19 K/uL Monocytes # (Auto) 0.11 K/uL Eosinophils # (Auto) 0.00 K/uL Basophils # (Auto) 0.01 K/uL RDW Standard Deviation 47.8 fL RDW Coefficient of Variation 13.8 % Immature Granulocyte % (Auto) 0.5 % Immature Granulocyte # (Auto) 0.05 K/uL Platelet Estimate DECREASED Bedside Glucose 110 mg/dl Test 02/14/17 06:04 02/14/17 06:15 Sodium Level 139 mmol/L Potassium Level 4.1 mmol/L Chloride Level 105 mmol/L Carbon Dioxide Level 26 mmol/L Anion Gap 8.0 mmol/L Blood Urea Nitrogen 30 mg/dl Creatinine 1.70 mg/dl Est Creatinine Clear Calc Drug Dose 24.1 ml/min Estimated GFR () 32.4 Estimated GFR (Non- 28.0 BUN/Creatinine Ratio 17.5 Random Glucose 91 mg/dl Calcium Level 8.2 mg/dl Total Bilirubin 2.4 mg/dl Aspartate Amino Transf (AST/SGOT) 490 U/L Alanine Aminotransferase (ALT/SGPT) 411 U/L Alkaline Phosphatase 219 U/L Total Protein 6.1 gm/dl Albumin 2.6 gm/dl Globulin 3.5 gm/dl Albumin/Globulin Ratio 0.7 Lipase 3113 U/L Urine Color ORANGE Urine Appearance CLOUDY Urine pH 5.0 Urine Specific Cameron 1.018 Urine Protein 1+ Urine Glucose (UA) NEG Urine Ketones NEG Urine Occult Blood TRACE Urine Nitrite POS Urine Bilirubin 2+ Urine Urobilinogen NEG Urine Leukocyte Esterase SMALL Urine WBC (Auto) 10-30 /hpf Urine RBC (Auto) 5-10 /hpf Urine Hyaline Casts (Auto) 1-5 /lpf Urine Epithelial Cells (Auto) >30 /lpf Urine Bacteria (Auto) NEG Urine Renal Epithelial Cells 0-5 /lpf Urine Pathogenic Casts 5-10 WBC CASTS /lpf Impression Patient is a 81 year old female w subjective fever, n/v, abd pain. Imaging studies and labs consistent w cholecystitis, pancreatitis. U/S didn't show gallstones, + minimal sludge, CBD 0.6mm. Likely transaminitis, pancreatitis due to sludge passage, less likely due to choledocholithiasis. LFTs/Lipase trending down today. Plan - LR 1L bolus; Monitor Cr, UOP. - Spoke w Dr. Dexter and Dr. Payan -> no lap cholecystectomy planned until Lipase w further improvement. Dr. Payan would also like to defer ERCP for now given improvement in her symptoms and labs. - Keep NPO - Monitor LFTs/Lipase - Symptomatic management. I have seen and examined the patient with HAROON Cisneros whose note reflects our findings and plan. Abd pain is improving as well as laboratory studies. her CBD is 6mm. Suspect she passed sludge and this is the cause of her pancreatitis. Would continue with supportive care, IVF hydration, PRN analgesia and anti-emetics, bowel rest. No plans for ERCP given improvement and paucity of evidence of choledocholithiasis. Surgery following for eventual cholecystectomy.
[2017-02-14 09:25] LABS: HEMATOCRIT 36.7 % (37-47); MEAN CELL VOLUME 95.6 fL (80-100); MEAN CORPUSCULAR HEMOGLOBIN 29.9 pg (25-34); MEAN CORPUSCULAR HGB CONC 31.3 g/dl (32-36); MEAN PLATELET VOLUME 11.7 fL (7.4-10.4); PLATELET COUNT 75 K/uL (130-400); PLT ESTIMATE DECREASED; RED BLOOD COUNT 3.84 M/uL (4.2-5.4); WHITE BLOOD COUNT 23.65 K/uL (4.8-10.8)
--- NOTE | 2017-02-14 09:48 | Cardiology Consultation ---
Cardiology Consultation Date of Service Feb 14, 2017. Cardiology Consultation Pertinent history Mrs. Mata is an 81-year-old female admitted yesterday with acute cholecystitis and pancreatitis. This consultation was ordered to assist in her cardiac management. The patient was in her usual state of health until 2 days prior to admission when she developed low-grade fever and diffuse abdominal discomfort. When the patient noticed some nausea vomiting and her discomfort progressed. The patient did not experience chest discomfort or dyspnea. She presented to emergency room with the above complaints and an ultrasound revealed evidence of a dilated and thickened gallbladder with evidence of gallbladder wall edema. Her liver transaminases and lipase were significantly elevated and hospitalization was recommended. The patient's cardiac history began in April of 1999 when she presented with an anterior wall myocardial infarction. She was transferred to [facility] where she eventually had a stent placed in the LAD. She did well from a cardiac perspective until June 2003 when she presented with a chest pain syndrome. A cardiac catheterization at that time revealed a patent stent and nonobstructive disease. The patient has done well from a cardiac perspective. She ambulates on a daily basis and does not experience exertional angina pectoris. She also denies limiting dyspnea. She further denies syncope, presyncope, PND, orthopnea, lower extremity edema, and claudication. The patient presented to our institution in May 2000 with asymptomatic bradycardia related to sinus node arrest and Mobitz type 2 av block. A permanent pacemaker was placed at that time, however, she had dysfunction of her atrial lead. In September 2006, she had a lead revision and pacemaker generator exchange. She had another generator exchange in March 2013. She also carries a history of an AV node reentrant tachycardia. This has been well controlled on her metoprolol tartrate. There has been no recent recurrence. The patient underwent a right inguinal hernia repair back in August of this year. The procedure was uncomplicated and she recovered well. Her medications reviewed in detail. Currently, the patient is resting comfortably in bed without complaints. Past medical history 1. Coronary artery disease-see above 2. Anterior AL he-April 1999 3. 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 DDDR pacemaker-May 2000, September 2006, March 2013 5. History of sinus node arrest 6. History of Mobitz type 2 block 7. AV node reentrant tachycardia 8. Mild mitral regurgitation 9. Hypertension 10. Hypercholesterolemia 11. Peripheral vascular disease 12. Chronic renal failure 13. History of malignant melanoma 14. Osteopenia 15. Vitamin-D deficiency 16. Gout 17. Interocular lens implants 18. Right inguinal hernia repair-August 2016 Medications 1. Metoprolol tartrate 5 milligrams IV q.6 hours 2. Nitro patch 0.2 milligram/hour, apply q.a.m. 3. Ciprofloxacin 400 mg IV q.12 hours 4. Metronidazole 500 mg IV q.8 hours Allergies 1. Heparin-thrombocytopenia 2. Penicillin-hives Social history , lives alone No tobacco Social alcohol Family history Father at age 69 from an AL Mother at age 70 from a none known carcinoma Review of systems A 10 point review of systems was negative except for that described above Physical examination In general this is a well-developed well-nourished white female. Blood pressure is 90/58 with a regular pulse of 65. Respiratory rate is 16 the patient is afebrile at 36.6 degrees Celsius. Saturations 97 percent on room air. Neck is supple with full carotid upstrokes. There are no carotid bruits. Jugular venous pressure is flat at 90 degrees. There is no thyromegaly. Cardiovascular exam reveals a regular rhythm with a normal S1 and S2. Heart sounds are distant. No obvious murmurs. Lungs are clear without rales, rhonchi , or wheezes. Chest reveals a palpable device in the left subclavicular region. Abdomen is soft with diffuse tenderness to palpation. Extremities reveal intact radial artery pulses bilaterally. Trace pretibial edema is noted. Skin is jaundiced. Data CBC notes a hemoglobin of 13.7, hematocrit 40.9, white count 9.5, platelet count 00408. Electrolytes notice sodium 139, potassium 4.1, chloride 105, bicarb 26, BUN 30, creatinine 1.7, glucose 110. AST is 490 (decreasing) and the ALT is 411 (decreasing). Lipase is 3113 (decreasing). Troponin high level is normal at less than 0.03. EKG notes atrial pacing with prolonged AV conduction. An old inferior and anterior AL pattern noted. Chest x-ray notes cardiomegaly with a pacemaker in place. Abdominal ultrasound noted a dilated gallbladder with thickened ng and evidence of edema. Impression Mrs. Mata was admitted with acute cholecystitis and pancreatitis. Fortunately, her liver transaminases and lipase are both improving. She may eventually require a surgical intervention. She is an acceptable cardiac risk for surgery as long as she remains on her beta-nohemy. Dr. Dexter suggested the possibility of an MRCP. We will have to determine whether her pacemaker is MRI compatible. Plan 1. Agree with intravenous beta-blockade 2. Acceptable cardiac risk if surgery required. Would continue in her venous beta-blockade without interruption. 3. Check with [facility] to determine if her device is MRI compatible 4. Further recommendations depending on her clinical course.
[2017-02-14] MEDS ORDERED: MoRPHine SULFATE 2 MG/ML CARP IV PRN ×3 (11:00→12:30)
[2017-02-14] MEDS ORDERED: PIPERACILL/TAZOBAC CONSULT ACTIVE PRN (12:12)
--- NOTE | 2017-02-14 13:30 | Hospitalist Progress Note ---
Hospitalist Progress Note Date of Service Feb 14, 2017. Subjective Pt evaluation today including: conversation w/ patient, conversation w/ family , physical exam, chart review, lab review, review of studies, review of inpatient medication list Patient seen and evaluated. No acute events overnight. Tele reviewed with pace rhythm in 60-70s. Patient looks well and reporting minimal pain. LFTs and lipase remain elevated but trending down No plan for ERCP or surgery today to allow for improved laboratories. Cardiology to see if pacer is MRI compatible Reports minimal appetite. No other complaints expressed. Answered patient and sons questions. Constitutional: No fever, No chills Respiratory: No shortness of breath Cardiovascular: No chest pain Abdomen: + pain, No nausea, No vomiting, No diarrhea, No constipation Musculoskeletal: No calf pain Female : No dysuria Heme: No abnormal bleeding/bruising Medications Current Inpatient Medications Medications (Trade) Dose Ordered Sig/Casey Route Start Time Stop Time Status Last Admin Dose Admin Prednisolone Acetate (Pred Forte 1% Oph Susp) 1 drops BID OPR 02/13/17 21:00 03/15/17 20:59 Sodium Chloride 1,000 ml @ 150 mls/hr Q6H40M IV 02/13/17 17:39 03/15/17 17:38 02/14/17 04:13 100 MLS/HR Ondansetron HCl (Zofran Inj) 4 mg Q6H PRN IV 02/13/17 17:45 03/15/17 17:44 Nitroglycerin (Nitrostat Tab) 0.4 mg UD PRN SL 02/13/17 17:45 03/15/17 17:44 Nitroglycerin (Nitro-Dur 0.2 Mg/Hr Patch) 1 patch QAM TD 02/14/17 09:00 03/16/17 08:59 Metoprolol Tartrate (Lopressor Iv) 5 mg Q6 IV. 02/13/17 18:00 03/15/17 17:59 Metoprolol Tartrate (Lopressor Iv) 5 mg Q4 PRN IV 02/13/17 17:45 03/15/17 17:44 Ciprofloxacin/ Dextrose 400 mg/ Prmx 200 ml @ 100 mls/hr Q12@0400,1600 IV 02/14/17 04:00 02/24/17 03:59 02/14/17 04:13 100 MLS/HR Metronidazole 500 mg/Prmx 100 ml @ 100 mls/hr Q8H IV 02/13/17 23:00 02/23/17 22:59 02/14/17 06:44 100 MLS/HR Miscellaneous (Remove Nitro-Dur Patch) 1 ea DAILY@2100 N/A 02/13/17 21:00 03/15/17 20:59 Morphine Sulfate (MoRPHine SULFATE INJ) 2 mg Q6H PRN IV 02/14/17 12:30 02/28/17 12:29 Objective Vital Signs Date Time Temp Pulse Resp B/P (MAP) Pulse Ox O2 Delivery O2 Flow Rate FiO2 02/14/17 12:00 95 Room Air 02/14/17 12:00 66 95/58 02/14/17 11:43 36.5 66 18 95/58 (70) 94 Room Air 02/14/17 09:51 102/67 (79) 02/14/17 08:00 97 Room Air 02/14/17 07:54 36.6 65 16 91/51 (64) 97 02/14/17 06:00 90/56 02/14/17 04:01 36.6 68 16 91/55 (67) 94 Room Air 02/14/17 04:00 Room Air 02/14/17 00:02 Room Air 02/14/17 00:00 75 95/53 02/13/17 23:44 36.8 75 17 95/53 (67) 92 Room Air 02/13/17 21:57 76 95/59 02/13/17 19:48 36.6 75 18 95/55 95 Nasal Cannula 2.0 02/13/17 18:05 72 02/13/17 17:39 74 18 100/47 96 Nasal Cannula 2.0 02/13/17 16:26 67 18 99/53 98 Nasal Cannula 2.0 02/13/17 15:04 61 18 110/55 96 Nasal Cannula 2.0 02/13/17 14:40 96 Nasal Cannula 3.0 02/13/17 14:07 90 02/13/17 13:51 36.6 93 18 158/71 96 Room Air Physical Exam General Appearance: WD/WN, no apparent distress Eyes: sclerae normal ENT: hearing grossly normal Neck: supple, no JVD, trachea midline Respiratory/Chest: lungs clear, normal breath sounds, no respiratory distress, no accessory muscle use Cardiovascular: regular rate, rhythm, no gallop, no murmur Abdomen: + abnormal bowel sounds (hypoactive), + tenderness (RUQ extending to RLQ; tenderness easily provoked but no acute abdomen) Neurologic/Psychiatric: alert, oriented x 3 Skin: normal color, warm/dry Laboratory Results Last 24 Hours Test 02/13/17 14:08 02/13/17 14:18 02/13/17 14:58 02/13/17 19:32 Sodium Level 139 mmol/L Potassium Level 3.4 mmol/L Chloride Level 103 mmol/L Carbon Dioxide Level 25 mmol/L Anion Gap 11.0 mmol/L Blood Urea Nitrogen 19 mg/dl Creatinine 1.20 mg/dl Est Creatinine Clear Calc Drug Dose 33.3 ml/min Estimated GFR () 49.4 Estimated GFR (Non- 42.7 BUN/Creatinine Ratio 16.0 Random Glucose 106 mg/dl Calcium Level 9.1 mg/dl Total Bilirubin 3.5 mg/dl Direct Bilirubin 2.2 mg/dl Aspartate Amino Transf (AST/SGOT) 1145 U/L Alanine Aminotransferase (ALT/SGPT) 751 U/L Alkaline Phosphatase 364 U/L Total Creatine Kinase 73 U/L Creatine Kinase MB 1.2 ng/ml Creatine Kinase MB Ratio 1.6 Total Protein 8.2 gm/dl Albumin 3.9 gm/dl Lipase 08755 U/L Bedside Troponin I < 0.030 ng/ml White Blood Count 9.53 K/uL Red Blood Count 4.30 M/uL Hemoglobin 13.7 g/dL Hematocrit 40.9 % Mean Corpuscular Volume 95.1 fL Mean Corpuscular Hemoglobin 31.9 pg Mean Corpuscular Hemoglobin Concent 33.5 g/dl Platelet Count 76 K/uL Mean Platelet Volume 10.9 fL Neutrophils (%) (Auto) 96.2 % Lymphocytes (%) (Auto) 2.0 % Monocytes (%) (Auto) 1.2 % Eosinophils (%) (Auto) 0.0 % Basophils (%) (Auto) 0.1 % Neutrophils # (Auto) 9.17 K/uL Lymphocytes # (Auto) 0.19 K/uL Monocytes # (Auto) 0.11 K/uL Eosinophils # (Auto) 0.00 K/uL Basophils # (Auto) 0.01 K/uL RDW Standard Deviation 47.8 fL RDW Coefficient of Variation 13.8 % Immature Granulocyte % (Auto) 0.5 % Immature Granulocyte # (Auto) 0.05 K/uL Platelet Estimate DECREASED Bedside Glucose 110 mg/dl Test 02/14/17 06:04 02/14/17 06:15 White Blood Count 23.65 K/uL Red Blood Count 3.84 M/uL Hemoglobin 11.5 g/dL Hematocrit 36.7 % Mean Corpuscular Volume 95.6 fL Mean Corpuscular Hemoglobin 29.9 pg Mean Corpuscular Hemoglobin Concent 31.3 g/dl RDW Standard Deviation 48.7 fL RDW Coefficient of Variation 14.1 % Platelet Count 75 K/uL Mean Platelet Volume 11.7 fL Platelet Estimate DECREASED Sodium Level 139 mmol/L Potassium Level 4.1 mmol/L Chloride Level 105 mmol/L Carbon Dioxide Level 26 mmol/L Anion Gap 8.0 mmol/L Blood Urea Nitrogen 30 mg/dl Creatinine 1.70 mg/dl Est Creatinine Clear Calc Drug Dose 24.1 ml/min Estimated GFR () 32.4 Estimated GFR (Non- 28.0 BUN/Creatinine Ratio 17.5 Random Glucose 91 mg/dl Calcium Level 8.2 mg/dl Total Bilirubin 2.4 mg/dl Aspartate Amino Transf (AST/SGOT) 490 U/L Alanine Aminotransferase (ALT/SGPT) 411 U/L Alkaline Phosphatase 219 U/L Total Protein 6.1 gm/dl Albumin 2.6 gm/dl Globulin 3.5 gm/dl Albumin/Globulin Ratio 0.7 Lipase 3113 U/L Urine Color ORANGE Urine Appearance CLOUDY Urine pH 5.0 Urine Specific [place] 1.018 Urine Protein 1+ Urine Glucose (UA) NEG Urine Ketones NEG Urine Occult Blood TRACE Urine Nitrite POS Urine Bilirubin 2+ Urine Urobilinogen NEG Urine Leukocyte Esterase SMALL Urine WBC (Auto) 10-30 /hpf Urine RBC (Auto) 5-10 /hpf Urine Hyaline Casts (Auto) 1-5 /lpf Urine Epithelial Cells (Auto) >30 /lpf Urine Bacteria (Auto) NEG Urine Renal Epithelial Cells 0-5 /lpf Urine Pathogenic Casts 5-10 WBC CASTS /lpf Assessment and Plan 81 female with acute cholecystitis and pancreatitis Acute Cholecystitis and Acute Pancreatitis: - Remain NPO - Cipro 400 mg BID and Flagyl 400 mg BID - NSS at 150 mL/hr - LFTs and lipase trending down - patient clinically looks well - GI and Gen Surg following - recommendations reviewed - plan for MRCP vs ERCP and eventual cholecystectomy pending improvement in labs Elevated Creatinine: - Will provide IVF and monitor BMP CAD S/P AL with Stent and Atrial Fibrillation S/P Pacemaker: - Metoprolol 5 mg IV Q6H and PRN - Risk stratification per cardiology - Cardiology following - recommendations reviewed - evaluate MRI compatibility of pacemaker DVT Prophylaxis: ROSE/SCDs - H/O HIT and will withhold chemical prophylaxis Code Status: FULL RESUSCITATION Disposition: - Continue to monitor for lab improvement - anticipate cholecystectomy in near future Continued [facility] stay due to: multiple IV medications needed Discharge planning: home
--- NOTE | 2017-02-14 13:31 | Surgery Progress Note ---
Surgery Progress Note Date of Service Feb 14, 2017. Subjective Post OP Day: HD # 1 + feeling well, + pain controlled, No chest pain, No SOB, No bowel movement, No nausea, No vomiting Objective Vital Signs: Date Time Temp Pulse Resp B/P (MAP) Pulse Ox O2 Delivery O2 Flow Rate FiO2 02/14/17 12:00 95 Room Air 02/14/17 12:00 66 95/58 02/14/17 11:43 36.5 66 18 95/58 (70) 94 Room Air 02/14/17 09:51 102/67 (79) 02/14/17 08:00 97 Room Air 02/14/17 07:54 36.6 65 16 91/51 (64) 97 02/14/17 06:00 90/56 02/14/17 04:01 36.6 68 16 91/55 (67) 94 Room Air 02/14/17 04:00 Room Air 02/14/17 00:02 Room Air 02/14/17 00:00 75 95/53 02/13/17 23:44 36.8 75 17 95/53 (67) 92 Room Air 02/13/17 21:57 76 95/59 02/13/17 19:48 36.6 75 18 95/55 95 Nasal Cannula 2.0 02/13/17 18:05 72 02/13/17 17:39 74 18 100/47 96 Nasal Cannula 2.0 02/13/17 16:26 67 18 99/53 98 Nasal Cannula 2.0 02/13/17 15:04 61 18 110/55 96 Nasal Cannula 2.0 02/13/17 14:40 96 Nasal Cannula 3.0 02/13/17 14:07 90 02/13/17 13:51 36.6 93 18 158/71 96 Room Air General Appearance: WD/WN, no apparent distress Head: normocephalic, atraumatic Neck: trachea midline Respiratory/Chest: lungs clear, normal breath sounds, no respiratory distress, no accessory muscle use Cardiovascular: regular rate, rhythm, no murmur Abdomen: non distended, soft, + tenderness (RUQ and epigastric tenderness on palpation) Laboratory Results: Results Past 24 Hours Test 02/13/17 14:08 02/13/17 14:18 02/13/17 14:58 02/13/17 19:32 Range/Units Sodium Level 139 136-145 mmol/L Potassium Level 3.4 3.5-5.1 mmol/L Chloride Level 103 98-107 mmol/L Carbon Dioxide Level 25 21-32 mmol/L Anion Gap 11.0 3-11 mmol/L Blood Urea Nitrogen 19 7-18 mg/dl Creatinine 1.20 0.60-1.20 mg/dl Est Creatinine Clear Calc Drug Dose 33.3 ml/min Estimated GFR () 49.4 Estimated GFR (Non- 42.7 BUN/Creatinine Ratio 16.0 10-20 Random Glucose 106 70-99 mg/dl Calcium Level 9.1 8.5-10.1 mg/dl Total Bilirubin 3.5 0.2-1 mg/dl Direct Bilirubin 2.2 0-0.2 mg/dl Aspartate Amino Transf (AST/SGOT) 1145 15-37 U/L Alanine Aminotransferase (ALT/SGPT) 751 12-78 U/L Alkaline Phosphatase 364 45-117 U/L Total Creatine Kinase 73 26-192 U/L Creatine Kinase MB 1.2 0.5-3.6 ng/ml Creatine Kinase MB Ratio 1.6 0-3.0 Total Protein 8.2 6.4-8.2 gm/dl Albumin 3.9 3.4-5.0 gm/dl Lipase 11662 73-393 U/L Bedside Troponin I < 0.030 0-0.045 ng/ml White Blood Count 9.53 4.8-10.8 K/uL Red Blood Count 4.30 4.2-5.4 M/uL Hemoglobin 13.7 12.0-16.0 g/dL Hematocrit 40.9 37-47 % Mean Corpuscular Volume 95.1 80-100 fL Mean Corpuscular Hemoglobin 31.9 25-34 pg Mean Corpuscular Hemoglobin Concent 33.5 32-36 g/dl Platelet Count 76 130-400 K/uL Mean Platelet Volume 10.9 7.4-10.4 fL Neutrophils (%) (Auto) 96.2 % Lymphocytes (%) (Auto) 2.0 % Monocytes (%) (Auto) 1.2 % Eosinophils (%) (Auto) 0.0 % Basophils (%) (Auto) 0.1 % Neutrophils # (Auto) 9.17 1.4-6.5 K/uL Lymphocytes # (Auto) 0.19 1.2-3.4 K/uL Monocytes # (Auto) 0.11 0.11-0.59 K/uL Eosinophils # (Auto) 0.00 0-0.5 K/uL Basophils # (Auto) 0.01 0-0.2 K/uL RDW Standard Deviation 47.8 36.4-46.3 fL RDW Coefficient of Variation 13.8 11.5-14.5 % Immature Granulocyte % (Auto) 0.5 % Immature Granulocyte # (Auto) 0.05 0.00-0.02 K/uL Platelet Estimate DECREASED Bedside Glucose 110 70-90 mg/dl Test 02/14/17 06:04 02/14/17 06:15 Range/Units White Blood Count 23.65 4.8-10.8 K/uL Red Blood Count 3.84 4.2-5.4 M/uL Hemoglobin 11.5 12.0-16.0 g/dL Hematocrit 36.7 37-47 % Mean Corpuscular Volume 95.6 80-100 fL Mean Corpuscular Hemoglobin 29.9 25-34 pg Mean Corpuscular Hemoglobin Concent 31.3 32-36 g/dl RDW Standard Deviation 48.7 36.4-46.3 fL RDW Coefficient of Variation 14.1 11.5-14.5 % Platelet Count 75 130-400 K/uL Mean Platelet Volume 11.7 7.4-10.4 fL Platelet Estimate DECREASED Sodium Level 139 136-145 mmol/L Potassium Level 4.1 3.5-5.1 mmol/L Chloride Level 105 98-107 mmol/L Carbon Dioxide Level 26 21-32 mmol/L Anion Gap 8.0 3-11 mmol/L Blood Urea Nitrogen 30 7-18 mg/dl Creatinine 1.70 0.60-1.20 mg/dl Est Creatinine Clear Calc Drug Dose 24.1 ml/min Estimated GFR () 32.4 Estimated GFR (Non- 28.0 BUN/Creatinine Ratio 17.5 10-20 Random Glucose 91 70-99 mg/dl Calcium Level 8.2 8.5-10.1 mg/dl Total Bilirubin 2.4 0.2-1 mg/dl Aspartate Amino Transf (AST/SGOT) 490 15-37 U/L Alanine Aminotransferase (ALT/SGPT) 411 12-78 U/L Alkaline Phosphatase 219 45-117 U/L Total Protein 6.1 6.4-8.2 gm/dl Albumin 2.6 3.4-5.0 gm/dl Globulin 3.5 2.5-4.0 gm/dl Albumin/Globulin Ratio 0.7 0.9-2 Lipase 3113 73-393 U/L Urine Color ORANGE Urine Appearance CLOUDY CLEAR Urine pH 5.0 4.5-7.5 Urine Specific [place] 1.018 1.000-1.030 Urine Protein 1+ NEG Urine Glucose (UA) NEG NEG Urine Ketones NEG NEG Urine Occult Blood TRACE NEG Urine Nitrite POS NEG Urine Bilirubin 2+ NEG Urine Urobilinogen NEG NEG Urine Leukocyte Esterase SMALL NEG Urine WBC (Auto) 10-30 0-5 /hpf Urine RBC (Auto) 5-10 0-4 /hpf Urine Hyaline Casts (Auto) 1-5 0-5 /lpf Urine Epithelial Cells (Auto) >30 0-5 /lpf Urine Bacteria (Auto) NEG NEG Urine Renal Epithelial Cells 0-5 0-5 /lpf Urine Pathogenic Casts 5-10 WBC CASTS 0 /lpf Microbiology Results 02/13/17 Blood Culture, Received Pending 02/13/17 Blood Culture, Received Pending 02/14/17 Urine Culture, Received Pending Diagnostic Interpretation: CT SCAN OF THE ABDOMEN AND PELVIS WITHOUT CONTRAST CLINICAL HISTORY: increased WBC; cholecystitis, pancreatitis COMPARISON STUDY: 01/08/2014 TECHNIQUE: CT scan of the abdomen and pelvis was performed from the lung bases to the proximal femurs. Images are reviewed in the axial, sagittal, and coronal planes. IV contrast was not administered for this examination. CT DOSE: 348.36 mGy.cm FINDINGS: Lower chest: There are small bilateral pleural effusions. There is mild septal thickening/edema. Liver: The unenhanced liver is normal in size, contour, and attenuation. There is no intrahepatic biliary ductal dilatation. Gallbladder: The gallbladder is distended. No calculi are visualized on CT scanning. Spleen: Normal in size and attenuation. Pancreas: No pancreatic masses are visualized this noncontrast study. Mild diffuse pancreatic edema cannot be excluded. Adrenal glands: Unremarkable. Kidneys: No renal, ureteral, or bladder calculi are visualized. Bowel: There is extensive pancolonic diverticulosis. There is sigmoid wall thickening, likely secondary to peridiverticular muscular hypertrophy. There is no current evidence of significant peridiverticular inflammatory change. There are no findings to indicate acute appendicitis. There are no transition zones to indicate bowel obstruction. There are multiple fluid-filled borderline dilated proximal small bowel loops. Peritoneum: There is no intraperitoneal free air or abdominal ascites. Vasculature: The abdominal aorta is normal in course and caliber. Adenopathy: None. Pelvic viscera: The bladder, and pelvic viscera are unremarkable. Skeletal structures: There is partial ankylosis of the right SI joint. IMPRESSION: 1. Study limited due to lack of intravenous and oral contrast 2. Severe pandiverticulosis 3. No renal, ureteral, or bladder diverticula 4. No evidence of bowel obstruction. No evidence of free air 5. Stable sigmoid wall thickening 6. Distended gallbladder. No calculi are visualized. 7. No evidence of acute appendicitis 8. Partial ankylosis of the right SI joint 9. Equivocal mild diffuse pancreatic edema Assessment & Plan RUQ and Epigastric abdominal pain Biliary sludge vs small cholelithiasis? Pancreatitis - Leukocytosis increased to 23K today - abdominal pain improving , tenderness in RUQ and epigastric area on examination. No peritonitis, rigidity, or rebound - Total bili 2.4, improving - LFTs improving - Lipase Improved to 3113 (14K yesterday) - Ct scan of abdomen and pelvis without oral and iv contrast today: "Mild diffuse pancreatic edema cannot be excluded", limited due to no contrast Plan: Continue conservative management at this time given acute pancreatitis: IV fluids, IV antibiotics, NPO, and IV pain medication as needed Will discuss cholecystectomy when pancreatic inflammation and LFTS/lipase improve further will continue to monitor Dr. Dexter has seen and examined patient, agrees with above.
--- NOTE | 2017-02-14 15:32 | DIAGNOSTIC IMAGING REPORT ---
CT SCAN OF THE ABDOMEN AND PELVIS WITHOUT CONTRAST CLINICAL HISTORY: increased WBC; cholecystitis, pancreatitis COMPARISON STUDY: 01/08/2014 TECHNIQUE: CT scan of the abdomen and pelvis was performed from the lung bases to the proximal femurs. Images are reviewed in the axial, sagittal, and coronal planes. IV contrast was not administered for this examination. CT DOSE: 348.36 mGy.cm FINDINGS: Lower chest: There are small bilateral pleural effusions. There is mild septal thickening/edema. Liver: The unenhanced liver is normal in size, contour, and attenuation. There is no intrahepatic biliary ductal dilatation. Gallbladder: The gallbladder is distended. No calculi are visualized on CT scanning. Spleen: Normal in size and attenuation. Pancreas: No pancreatic masses are visualized this noncontrast study. Mild diffuse pancreatic edema cannot be excluded. Adrenal glands: Unremarkable. Kidneys: No renal, ureteral, or bladder calculi are visualized. Bowel: There is extensive pancolonic diverticulosis. There is sigmoid wall thickening, likely secondary to peridiverticular muscular hypertrophy. There is no current evidence of significant peridiverticular inflammatory change. There are no findings to indicate acute appendicitis. There are no transition zones to indicate bowel obstruction. There are multiple fluid-filled borderline dilated proximal small bowel loops. Peritoneum: There is no intraperitoneal free air or abdominal ascites. Vasculature: The abdominal aorta is normal in course and caliber. Adenopathy: None. Pelvic viscera: The bladder, and pelvic viscera are unremarkable. Skeletal structures: There is partial ankylosis of the right SI joint. IMPRESSION: 1. Study limited due to lack of intravenous and oral contrast 2. Severe pandiverticulosis 3. No renal, ureteral, or bladder diverticula 4. No evidence of bowel obstruction. No evidence of free air 5. Stable sigmoid wall thickening 6. Distended gallbladder. No calculi are visualized. 7. No evidence of acute appendicitis 8. Partial ankylosis of the right SI joint 9. Equivocal mild diffuse pancreatic edema Electronically signed by: Mao Hassan M.D. 02/14/2017 3:31 PM Dictated Date/Time: 02/14/2017 3:24 PM
[2017-02-14] MEDS ORDERED: NURSING VERBAL MED ORDER ONE (23:00)
[2017-02-14] MEDS ORDERED: PRAMIPEXOLE DIHYDROCHLORIDE 0.25MG TAB PO ONE (23:15)
[2017-02-15] VITALS (7 sets, daily range): BP systolic 101–124; BP diastolic 63–75; PULSE 68–79; TEMP 36.5–37; O2SAT 93–96
[2017-02-15] MEDS: CIPROFLOXACIN / D5W 400 MG in PREMIXED IN D5W 200 ML IV SCH ×2 (05:05→16:44)
[2017-02-15] MEDS: METOPROLOL TARTRATE 1 MG/ML VIAL IV. SCH ×3 (05:49→12:57)
[2017-02-15] MEDS: METRONIDAZOLE / NSS 500 MG in PREMIXED NSS 100 ML IV SCH ×3 (07:10→22:41)
[2017-02-15] MEDS: NITROGLYCERIN 0.2 MG/HR PATCH TD SCH (07:14)
[2017-02-15] MEDS: PrednisoLONE ACET 1% OP SUSP 5 ML BTL OPR SCH ×2 (07:18→20:59)
[2017-02-15 08:21] LABS: HEMATOCRIT 35.3 % (37-47); MEAN CELL VOLUME 93.9 fL (80-100); MEAN CORPUSCULAR HEMOGLOBIN 31.4 pg (25-34); MEAN CORPUSCULAR HGB CONC 33.4 g/dl (32-36); PLATELET COUNT 70 K/uL (130-400); RED BLOOD COUNT 3.76 M/uL (4.2-5.4); WHITE BLOOD COUNT 14.47 K/uL (4.8-10.8)
[2017-02-15 08:37] LABS: BUN/CREATININE RATIO 22.3 (10-20); CALCIUM 7.6 mg/dl (8.5-10.1); CREATININE 1.4 mg/dl (0.60-1.20); POTASSIUM 3.8 mmol/L (3.5-5.1)
[2017-02-15 08:45] LABS: ALB/GLOB RATIO 0.7 (0.9-2)
--- NOTE | 2017-02-15 09:20 | Cardiology Follow-Up ---
Cardiology Follow-Up Date of Service Feb 15, 2017. 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 Evaluated by Dr. Springer yesterday, felt to be acceptable candidate for surgery if necessary. Today she notes she still has some abdominal tenderness and discomfort, but this is slowly improving. No chest pain, dyspnea, palpitations. PHYSICAL EXAMINATION: No distress. Vitals: Afebrile. BP 124/67, pulse 75 regular, respirations 16 and unlabored. Skin: No unusual lesions or ecchymosis. HEENT: Unremarkable. Neck: Jugular venous pulse at the clavicle at 90, no carotid bruits. Lungs: Clear and equal breath sounds bilaterally. No wheezing or crackles. Cardiac: Regular rhythm with normal S1 and S2. No murmur or gallop. Abdomen: Soft and nondistended will with generalized mild tenderness to palpation. Extremities: Nontender without edema. Intact peripheral pulses. Neurologic: Normal affect, nonfocal DATA: Telemetry showed appropriate electronic paced rhythm with no tachy dysrhythmias. White count 14.47 (down from 23.65), hemoglobin stable at 11.8, platelet count 34775. Normal electrolytes, BUN 31, creatinine 1.4 (31.7 yesterday). AST 182 with ALT 245 (both dropping). Alkaline phosphatase 177 (also declining). Albumin 2 point IMPRESSION: 1. Acute cholecystitis/pancreatitis, improving. 2. Permanent pacemaker, functioning appropriately. 3. History of tachydysrhythmia, on IV beta-blockers currently. 4. Prior history of nonobstructive coronary artery disease. DISCUSSION: Patient is stable from a cardiac standpoint. Continue IV beta-nohemy to prevent tachy dysrhythmia. [email or web address] underwriting account representative to evaluate whether pacemaker is MRI compatible.
--- NOTE | 2017-02-15 09:31 | Gastroenterology Progress Note ---
Progress Note Date of Service: Feb 15, 2017 Subjective Pt evaluation today including: conversation w/ patient, chart review Feels improved, still with some mild pain. Labs including LFT's and RF have improved. Medications Current Inpatient Medications Medications (Trade) Dose Ordered Sig/Casey Route Start Time Stop Time Status Last Admin Dose Admin Prednisolone Acetate (Pred Forte 1% Oph Susp) 1 drops BID OPR 02/13/17 21:00 03/15/17 20:59 Sodium Chloride 1,000 ml @ 150 mls/hr Q6H40M IV 02/13/17 17:39 03/15/17 17:38 02/14/17 22:50 150 MLS/HR Ondansetron HCl (Zofran Inj) 4 mg Q6H PRN IV 02/13/17 17:45 03/15/17 17:44 Nitroglycerin (Nitrostat Tab) 0.4 mg UD PRN SL 02/13/17 17:45 03/15/17 17:44 Nitroglycerin (Nitro-Dur 0.2 Mg/Hr Patch) 1 patch QAM TD 02/14/17 09:00 03/16/17 08:59 02/15/17 07:14 1 PATCH Metoprolol Tartrate (Lopressor Iv) 5 mg Q6 IV. 02/13/17 18:00 03/15/17 17:59 Metoprolol Tartrate (Lopressor Iv) 5 mg Q4 PRN IV 02/13/17 17:45 03/15/17 17:44 Ciprofloxacin/ Dextrose 400 mg/ Prmx 200 ml @ 100 mls/hr Q12@0400,1600 IV 02/14/17 04:00 02/24/17 03:59 02/15/17 05:05 100 MLS/HR Metronidazole 500 mg/Prmx 100 ml @ 100 mls/hr Q8H IV 02/13/17 23:00 02/23/17 22:59 02/15/17 07:10 100 MLS/HR Miscellaneous (Remove Nitro-Dur Patch) 1 ea DAILY@2100 N/A 02/13/17 21:00 03/15/17 20:59 Morphine Sulfate (MoRPHine SULFATE INJ) 2 mg Q6H PRN IV 02/14/17 12:30 02/28/17 12:29 Pramipexole Dihydrochloride (miraPEX TAB) 0.125 mg HS PO 02/15/17 21:00 03/17/17 20:59 Objective Vital Signs Date Time Temp Pulse Resp B/P (MAP) Pulse Ox O2 Delivery O2 Flow Rate FiO2 02/15/17 08:00 Room Air 02/15/17 07:42 36.9 75 16 124/67 (86) 93 Room Air 02/15/17 04:19 36.5 74 17 116/64 (81) 94 Room Air 02/15/17 04:00 Room Air 02/15/17 00:02 36.6 71 17 101/63 (76) 96 Room Air 02/15/17 00:00 Room Air 02/14/17 20:00 Room Air 02/14/17 19:49 36.8 66 18 102/61 (75) 93 Room Air 02/14/17 17:31 68 92/55 02/14/17 16:06 36.5 68 20 92/55 (67) 93 Room Air 02/14/17 16:00 95 Room Air 02/14/17 12:00 95 Room Air 02/14/17 12:00 66 95/58 02/14/17 11:43 36.5 66 18 95/58 (70) 94 Room Air 02/14/17 09:51 102/67 (79) Physical Exam General Appearance: WD/WN, no apparent distress Neck: supple Respiratory/Chest: chest non-tender Cardiovascular: regular rate, rhythm, no edema Abdomen: normal bowel sounds, soft, + pertinent finding (only minimally tender) Extremities: normal range of motion Skin: normal color Laboratory Results Last 24 Hours Test 02/15/17 07:48 White Blood Count 14.47 K/uL Red Blood Count 3.76 M/uL Hemoglobin 11.8 g/dL Hematocrit 35.3 % Mean Corpuscular Volume 93.9 fL Mean Corpuscular Hemoglobin 31.4 pg Mean Corpuscular Hemoglobin Concent 33.4 g/dl RDW Standard Deviation 48.3 fL RDW Coefficient of Variation 14.1 % Platelet Count 70 K/uL Mean Platelet Volume 12.0 fL Sodium Level 143 mmol/L Potassium Level 3.8 mmol/L Chloride Level 111 mmol/L Carbon Dioxide Level 24 mmol/L Anion Gap 8.0 mmol/L Blood Urea Nitrogen 31 mg/dl Creatinine 1.40 mg/dl Est Creatinine Clear Calc Drug Dose 29.4 ml/min Estimated GFR () 41.0 Estimated GFR (Non- 35.4 BUN/Creatinine Ratio 22.3 Random Glucose 70 mg/dl Calcium Level 7.6 mg/dl Total Bilirubin 0.8 mg/dl Aspartate Amino Transf (AST/SGOT) 182 U/L Alanine Aminotransferase (ALT/SGPT) 245 U/L Alkaline Phosphatase 177 U/L Total Protein 5.9 gm/dl Albumin 2.5 gm/dl Globulin 3.4 gm/dl Albumin/Globulin Ratio 0.7 Lipase 1204 U/L Assessment and Plan Patient is a 81 year old female w pancreatitis-some equivocal changes of acute cholecystitis complicated by renal dysfunction. Clinically seems to have improved, less pain reported, Cr, WBC ct, LFT's all improved. Agree with continued conservative approach with IVF, pain control, will need contrasted CT to exclude mass lesion after RF improves Vale determination per surgery, but does not appear to have acute need now, not sure of etiology, possibly passed stone/sludge Will follow Can advance to liquids this afternoon if doing ok
[2017-02-15] MEDS: SODIUM CHLORIDE 0.9% 1000ML 1,000 ML IV SCH ×3 (09:52→22:31)
--- NOTE | 2017-02-15 10:41 | Surgery Progress Note ---
Surgery Progress Note Date of Service Feb 15, 2017. Subjective No bowel movement, No flatus, No nausea, No vomiting Less pain Objective Vital Signs: Date Time Temp Pulse Resp B/P (MAP) Pulse Ox O2 Delivery O2 Flow Rate FiO2 02/15/17 08:00 Room Air 02/15/17 07:42 36.9 75 16 124/67 (86) 93 Room Air 02/15/17 04:19 36.5 74 17 116/64 (81) 94 Room Air 02/15/17 04:00 Room Air 02/15/17 00:02 36.6 71 17 101/63 (76) 96 Room Air 02/15/17 00:00 Room Air 02/14/17 20:00 Room Air 02/14/17 19:49 36.8 66 18 102/61 (75) 93 Room Air 02/14/17 17:31 68 92/55 02/14/17 16:06 36.5 68 20 92/55 (67) 93 Room Air 02/14/17 16:00 95 Room Air 02/14/17 12:00 95 Room Air 02/14/17 12:00 66 95/58 02/14/17 11:43 36.5 66 18 95/58 (70) 94 Room Air Abdomen: non distended, soft, + tenderness (still with mild tenderness) Laboratory Results: Results Past 24 Hours Test 02/15/17 07:48 Range/Units White Blood Count 14.47 4.8-10.8 K/uL Red Blood Count 3.76 4.2-5.4 M/uL Hemoglobin 11.8 12.0-16.0 g/dL Hematocrit 35.3 37-47 % Mean Corpuscular Volume 93.9 80-100 fL Mean Corpuscular Hemoglobin 31.4 25-34 pg Mean Corpuscular Hemoglobin Concent 33.4 32-36 g/dl RDW Standard Deviation 48.3 36.4-46.3 fL RDW Coefficient of Variation 14.1 11.5-14.5 % Platelet Count 70 130-400 K/uL Mean Platelet Volume 12.0 7.4-10.4 fL Sodium Level 143 136-145 mmol/L Potassium Level 3.8 3.5-5.1 mmol/L Chloride Level 111 98-107 mmol/L Carbon Dioxide Level 24 21-32 mmol/L Anion Gap 8.0 3-11 mmol/L Blood Urea Nitrogen 31 7-18 mg/dl Creatinine 1.40 0.60-1.20 mg/dl Est Creatinine Clear Calc Drug Dose 29.4 ml/min Estimated GFR () 41.0 Estimated GFR (Non- 35.4 BUN/Creatinine Ratio 22.3 10-20 Random Glucose 70 70-99 mg/dl Calcium Level 7.6 8.5-10.1 mg/dl Total Bilirubin 0.8 0.2-1 mg/dl Aspartate Amino Transf (AST/SGOT) 182 15-37 U/L Alanine Aminotransferase (ALT/SGPT) 245 12-78 U/L Alkaline Phosphatase 177 45-117 U/L Total Protein 5.9 6.4-8.2 gm/dl Albumin 2.5 3.4-5.0 gm/dl Globulin 3.4 2.5-4.0 gm/dl Albumin/Globulin Ratio 0.7 0.9-2 Lipase 1204 73-393 U/L Assessment & Plan Pancreatitis resolving WBC decreased today If continues to resolve, plan cholecystectomy with cholangiogram on I explained the procedure of a laparoscopic cholecystectomy and the possible need to convert to devan open procedure and the possible complications. She has signed a consent form. Agree with clear liquids for today
--- NOTE | 2017-02-15 12:11 | Progress Note ---
Subjective Date of Service: Feb 15, 2017. Subjective Pt evaluation today including: conversation w/ patient, conversation w/ family , physical exam, chart review, lab review, review of studies, conversation w/ institutional nutrition consultant, review of inpatient medication list mild abd sore, no abdominal pain, no nausea vomiting, no fever, has bowel movement Problem List Medical Problems: (1) Acute pancreatitis Status: Acute (2) Cholecystitis Status: Acute Review of Systems Constitutional: No fever, No chills, No sweats, No weight loss, No weakness, No fatigue, No problem reported Eyes: No worsening of vision, No eye pain, No redness, No discharge, No diplopia ENT: No hearing loss, No unusual epistaxis, No nasal symptoms, No sore throat, No tinnitus, No dental problems, No trouble swallowing Respiratory: No cough, No sputum, No wheezing, No shortness of breath, No dyspnea on exertion, No dyspnea at rest, No hemoptysis Cardiac: No chest pain, No orthopnea, No PND, No edema, No claudication, No palpitations Abdomen: No pain, No nausea, No vomiting, No diarrhea, No constipation Musculoskeletal: No joint pain, No muscle pain, No swelling, No calf pain Female : No dysuria, No urinary frequency, No hematuria, No incontinence, No abnormal vaginal bleeding, No vaginal discharge Neurologic: No memory loss, No paralysis, No weakness, No numbness/tingling, No vertigo, No balance problems Psychiatric: No depression symptoms, No anhedonism, No anxiety, No insomnia, No substance abuse Heme: No abnormal bleeding/bruising, No clotting problems, No swollen lymph nodes, No night sweats Endo: No fatigue, No excessive thirst, No excessive urination Skin: No rash, No itch, No new/changing skin lesions, No color change, No bleeding Objective Vital Signs Date Time Temp Pulse Resp B/P (MAP) Pulse Ox O2 Delivery O2 Flow Rate FiO2 02/15/17 11:59 37.0 76 16 106/65 (79) 94 Room Air 02/15/17 08:00 Room Air 02/15/17 07:42 36.9 75 16 124/67 (86) 93 Room Air 02/15/17 04:19 36.5 74 17 116/64 (81) 94 Room Air 02/15/17 04:00 Room Air 02/15/17 00:02 36.6 71 17 101/63 (76) 96 Room Air 02/15/17 00:00 Room Air 02/14/17 20:00 Room Air 02/14/17 19:49 36.8 66 18 102/61 (75) 93 Room Air 02/14/17 17:31 68 92/55 02/14/17 16:06 36.5 68 20 92/55 (67) 93 Room Air 02/14/17 16:00 95 Room Air Physical Exam General Appearance: WD/WN, no apparent distress Eyes: normal inspection, PERRL, EOMI, sclerae normal ENT: normal ENT inspection, hearing grossly normal, pharynx normal Neck: supple, no adenopathy, thyroid normal, no JVD, no carotid bruits, trachea midline Respiratory/Chest: chest non-tender, lungs clear, normal breath sounds, no respiratory distress, no accessory muscle use Cardiovascular: regular rate, rhythm, no edema, no gallop, no JVD, no murmur Abdomen: normal bowel sounds, soft, no organomegaly, no pulsatile mass, + tenderness (mild tender) Extremities: normal range of motion, non-tender, normal inspection, no pedal edema, no calf tenderness, normal capillary refill, pelvis stable 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, no motor/sensory deficits, alert, normal mood/affect, oriented x 3 Skin: normal color, warm/dry, no rash Lymphatic: no adenopathy Laboratory Results Last 24 Hours Test 02/15/17 07:48 White Blood Count 14.47 K/uL Red Blood Count 3.76 M/uL Hemoglobin 11.8 g/dL Hematocrit 35.3 % Mean Corpuscular Volume 93.9 fL Mean Corpuscular Hemoglobin 31.4 pg Mean Corpuscular Hemoglobin Concent 33.4 g/dl RDW Standard Deviation 48.3 fL RDW Coefficient of Variation 14.1 % Platelet Count 70 K/uL Mean Platelet Volume 12.0 fL Sodium Level 143 mmol/L Potassium Level 3.8 mmol/L Chloride Level 111 mmol/L Carbon Dioxide Level 24 mmol/L Anion Gap 8.0 mmol/L Blood Urea Nitrogen 31 mg/dl Creatinine 1.40 mg/dl Est Creatinine Clear Calc Drug Dose 29.4 ml/min Estimated GFR () 41.0 Estimated GFR (Non- 35.4 BUN/Creatinine Ratio 22.3 Random Glucose 70 mg/dl Calcium Level 7.6 mg/dl Total Bilirubin 0.8 mg/dl Aspartate Amino Transf (AST/SGOT) 182 U/L Alanine Aminotransferase (ALT/SGPT) 245 U/L Alkaline Phosphatase 177 U/L Total Protein 5.9 gm/dl Albumin 2.5 gm/dl Globulin 3.4 gm/dl Albumin/Globulin Ratio 0.7 Lipase 1204 U/L Assessment and Plan 81 female admitted on 02/13/2017 with acute cholecystitis and pancreatitis Acute Cholecystitis and Acute Pancreatitis: Stable and improving Clinically better Echo cytosis improved - LFTs and lipase continue trending down - GI and Gen Surg following - recommendations reviewed - plan for MRCP vs ERCP - Surgeon may plan cholecystectomy in Tuesday - Start clear liquid diet because patient improving - Cipro 400 mg BID and Flagyl 400 mg BID ( not able to switch over to Zosyn because of allergy to penicillin) -Continue NSS to 150 mL/hr - Use morphine for pain, avoid Tylenol because of recent acute liver enzyme abnormal Elevated Creatinine patient's urine still dark and concentrated, resolving after increased IV fluid, will continue watch History of CAD S/P [place] with Stent and Atrial Fibrillation S/P Pacemaker: Continue current care, patient accompanied to evaluation whether pacemaker is MRI compatible. 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
[2017-02-15 13:25] LABS: CHOLESTEROL/HDL RATIO 2.8
[2017-02-15] MEDS ORDERED: NURSING VERBAL MED ORDER ONE ×2 (14:15→17:15)
[2017-02-15] MEDS: PRAMIPEXOLE DIHYDROCHLORIDE 0.25MG TAB PO SCH (20:59)
[2017-02-15] MEDS: METOPROLOL TARTRATE 25 MG TAB PO SCH (21:01)
[2017-02-16] MEDS: SODIUM CHLORIDE 0.9% 1000ML 1,000 ML IV SCH ×4 (04:43→23:58)
[2017-02-16] MEDS: CIPROFLOXACIN / D5W 400 MG in PREMIXED IN D5W 200 ML IV SCH ×2 (04:43→16:23)
[2017-02-16 05:41] LABS: HEMATOCRIT 33.7 % (37-47); MEAN CELL VOLUME 93.6 fL (80-100); MEAN CORPUSCULAR HEMOGLOBIN 31.4 pg (25-34); MEAN CORPUSCULAR HGB CONC 33.5 g/dl (32-36); WHITE BLOOD COUNT 9.53 K/uL (4.8-10.8)
[2017-02-16 05:51] LABS: MEAN PLATELET VOLUME 10.1 fL (7.4-10.4); PLATELET COUNT 70 K/uL (130-400)
[2017-02-16 05:54] LABS: INR 1.1 (0.9-1.1); PROTHROMBIN TIME (PATIENT) 11.4 SECONDS (9.0-12.0)
[2017-02-16 06:20] LABS: ALB/GLOB RATIO 0.8 (0.9-2); CALCIUM 7.4 mg/dl (8.5-10.1); CREATININE 0.93 mg/dl (0.60-1.20); MAGNESIUM 1.3 mg/dl (1.8-2.4); POTASSIUM 3.7 mmol/L (3.5-5.1)
[2017-02-16 06:57] VITALS: BP 127/74; PULSE 74; TEMP 36.8; O2SAT 92
[2017-02-16] MEDS: METRONIDAZOLE / NSS 500 MG in PREMIXED NSS 100 ML IV SCH ×3 (07:05→22:28)
[2017-02-16] MEDS ORDERED: MAGNESIUM SULFATE 1GM / D5W 1 GM in PREMIXED IN D5W 100 ML IV ONE ×2 (07:30→08:30)
[2017-02-16 08:54] VITALS: BP 126/77; PULSE 87
[2017-02-16] MEDS: METOPROLOL TARTRATE 25 MG TAB PO SCH ×2 (09:01→20:46)
[2017-02-16] MEDS: MAGNESIUM OXIDE 400 MG TAB PO SCH ×2 (09:01→20:46)
[2017-02-16] MEDS: NITROGLYCERIN 0.2 MG/HR PATCH TD SCH (09:06)
--- NOTE | 2017-02-16 12:09 | Hospitalist Progress Note ---
Hospitalist Progress Note Date of Service Feb 16, 2017. Subjective Pt evaluation today including: conversation w/ patient, physical exam, chart review, lab review, review of studies, review of inpatient medication list Patient seen and evaluated. No acute events overnight. Tolerating clear liquids Likely lap joss tomorrow per surgery. Verbalizes no new complaints. Constitutional: No fever, No chills Respiratory: No shortness of breath Cardiovascular: No chest pain Abdomen: + pain (minimal in RUQ and RLQ mostly with just palpation), No nausea, No vomiting, No diarrhea, No constipation Musculoskeletal: No swelling, No calf pain Female : No dysuria Medications Current Inpatient Medications Medications (Trade) Dose Ordered Sig/Casey Route Start Time Stop Time Status Last Admin Dose Admin Sodium Chloride 1,000 ml @ 150 mls/hr Q6H40M IV 02/13/17 17:39 03/15/17 17:38 02/16/17 04:43 150 MLS/HR Ondansetron HCl (Zofran Inj) 4 mg Q6H PRN IV 02/13/17 17:45 03/15/17 17:44 Nitroglycerin (Nitrostat Tab) 0.4 mg UD PRN SL 02/13/17 17:45 03/15/17 17:44 Nitroglycerin (Nitro-Dur 0.2 Mg/Hr Patch) 1 patch QAM TD 02/14/17 09:00 03/16/17 08:59 02/16/17 09:06 1 PATCH Ciprofloxacin/ Dextrose 400 mg/ Prmx 200 ml @ 100 mls/hr Q12@0400,1600 IV 02/14/17 04:00 02/24/17 03:59 02/16/17 04:43 100 MLS/HR Metronidazole 500 mg/Prmx 100 ml @ 100 mls/hr Q8H IV 02/13/17 23:00 02/23/17 22:59 02/16/17 07:05 100 MLS/HR Miscellaneous (Remove Nitro-Dur Patch) 1 ea DAILY@2100 N/A 02/13/17 21:00 03/15/17 20:59 02/15/17 20:58 1 EA Morphine Sulfate (MoRPHine SULFATE INJ) 2 mg Q6H PRN IV 02/14/17 12:30 02/28/17 12:29 Pramipexole Dihydrochloride (miraPEX TAB) 0.125 mg HS PO 02/15/17 21:00 03/17/17 20:59 Metoprolol Tartrate (Lopressor Tab) 25 mg BID PO 02/15/17 21:00 03/17/17 20:59 02/16/17 09:01 25 MG Magnesium Oxide (Mag-Ox Tab) 400 mg BID PO 02/16/17 09:00 03/18/17 08:59 02/16/17 09:01 400 MG Objective Vital Signs Date Time Temp Pulse Resp B/P (MAP) Pulse Ox O2 Delivery O2 Flow Rate FiO2 02/16/17 08:54 87 126/77 (93) 02/16/17 07:30 Room Air 02/16/17 06:57 36.8 74 16 127/74 (91) 92 Room Air 02/15/17 23:59 Room Air 02/15/17 23:40 36.8 68 16 118/75 (89) 94 Room Air 02/15/17 16:30 Room Air 02/15/17 15:16 36.9 79 16 105/65 (78) 93 Room Air 02/15/17 14:19 37.0 76 16 94 2.0 02/15/17 12:57 76 106/65 02/15/17 12:00 Room Air 02/15/17 11:59 37.0 76 16 106/65 (79) 94 Room Air Physical Exam General Appearance: WD/WN, no apparent distress Eyes: sclerae normal ENT: hearing grossly normal Neck: supple, no JVD, trachea midline Respiratory/Chest: lungs clear, normal breath sounds, no respiratory distress, no accessory muscle use Cardiovascular: regular rate, rhythm, no gallop, no murmur Abdomen: normal bowel sounds, soft, + tenderness (RUQ and RLQ) Extremities: no pedal edema, no calf tenderness Neurologic/Psychiatric: alert, oriented x 3 Skin: normal color, warm/dry Laboratory Results Last 24 Hours Test 02/16/17 05:26 White Blood Count 9.53 K/uL Red Blood Count 3.60 M/uL Hemoglobin 11.3 g/dL Hematocrit 33.7 % Mean Corpuscular Volume 93.6 fL Mean Corpuscular Hemoglobin 31.4 pg Mean Corpuscular Hemoglobin Concent 33.5 g/dl RDW Standard Deviation 48.4 fL RDW Coefficient of Variation 14.1 % Platelet Count 70 K/uL Mean Platelet Volume 10.1 fL Prothrombin Time 11.4 SECONDS Prothromb Time International Ratio 1.1 Sodium Level 144 mmol/L Potassium Level 3.7 mmol/L Chloride Level 114 mmol/L Carbon Dioxide Level 24 mmol/L Anion Gap 6.0 mmol/L Blood Urea Nitrogen 21 mg/dl Creatinine 0.93 mg/dl Est Creatinine Clear Calc Drug Dose 44.2 ml/min Estimated GFR () 67.3 Estimated GFR (Non- 58.0 BUN/Creatinine Ratio 22.0 Random Glucose 80 mg/dl Calcium Level 7.4 mg/dl Magnesium Level 1.3 mg/dl Total Bilirubin 0.7 mg/dl Aspartate Amino Transf (AST/SGOT) 89 U/L Alanine Aminotransferase (ALT/SGPT) 178 U/L Alkaline Phosphatase 165 U/L Total Protein 5.6 gm/dl Albumin 2.4 gm/dl Globulin 3.2 gm/dl Albumin/Globulin Ratio 0.8 Lipase 1038 U/L Assessment and Plan 81 female with acute cholecystitis and pancreatitis Acute Cholecystitis and Acute Pancreatitis: - Laboratories continue to trend down; leukocytosis improving - Cipro 400 mg BID and Flagyl 400 mg BID - NSS at 150 mL/hr - GI and Gen Surg following - plan for lap joss tomorrow and will place NPO at midnight Elevated Creatinine: RESOLVED - Will provide IVF and monitor BMP CAD S/P [place] with Stent and Atrial Fibrillation S/P Pacemaker: - Metoprolol 25 mg BID - Cardiology following - Risk stratification per cardiology DVT Prophylaxis: ROSE/SCDs - H/O HIT and will withhold chemical prophylaxis Code Status: FULL RESUSCITATION Disposition: - Lap Joss tomorrow Continued [facility] stay due to: multiple IV medications needed
--- NOTE | 2017-02-16 12:49 | Clinical Documentation Query ---
JOSEFINA Denny : CLINICAL DOCUMENTATION QUERY Documentation 02/14 and subsequent to this has included "elevated creatinine". Admission BUN and creatinine were 19 mg/dl and 1.20 mg/dl with values 18 hours later of 30 mg/dl and 1.70 mg/dl. Have since normalized. This cannot be assumed by the professional auditing coder to be synonymous with IGNACIO or acute renal failure. If this was the intent of this statement, consider clarification as suggested below. In your clinical opinion was this patient managed for: ( x ) Acute kidney failure, resolved ( ) Other explanation of clinical findings (Please Explain) ( ) Unable to determine (Please Define) ( ) Need to Discuss ( ) Not Agree The medical record reflects the following clinical findings, treatment, and risk factors. Clinical Indicators: As above Treatment: IVF, serial chemistries Risk Factors: Age, acute illness, poor intake with N/V, pain Please clarify and document your clinical opinion in the progress notes and discharge summary. Terms such as "probable", "suspected", "likely", "questionable", "possible", or "still to be ruled out" are acceptable. IF IN AGREEMENT, YOU MUST DOCUMENT ABOVE DIAGNOSTIC STATEMENT IN DAILY PROGRESS NOTES AND DISCHARGE SUMMARY. This document is not part of the patient's record. Thank You, Mitchell Hammond, SEAN [phone]
[2017-02-16 15:05] VITALS: BP 143/85; PULSE 69; TEMP 36.7; O2SAT 94
--- NOTE | 2017-02-16 16:00 | Surgery Progress Note ---
Surgery Progress Note Date of Service Feb 16, 2017. Subjective Post OP Day: HD # 3 + feeling well, + bowel movement, + flatus, + pain controlled, + diet ( tolerating clear liquids), No complaints, No chest pain, No SOB, No nausea, No vomiting Objective Vital Signs: Date Time Temp Pulse Resp B/P (MAP) Pulse Ox O2 Delivery O2 Flow Rate FiO2 02/16/17 15:05 36.7 69 18 143/85 (104) 94 Room Air 02/16/17 08:54 87 126/77 (93) 02/16/17 07:30 Room Air 02/16/17 06:57 36.8 74 16 127/74 (91) 92 Room Air 02/15/17 23:59 Room Air 02/15/17 23:40 36.8 68 16 118/75 (89) 94 Room Air 02/15/17 16:30 Room Air General Appearance: WD/WN, no apparent distress Head: normocephalic, atraumatic Neck: trachea midline Respiratory/Chest: lungs clear, normal breath sounds, no respiratory distress, no accessory muscle use Cardiovascular: regular rate, rhythm, no murmur Abdomen: non distended, soft, + tenderness (RUQ tenderness on palpation, no rigidity or peritonitis, slight voluntary guarding) Laboratory Results: Results Past 24 Hours Test 02/16/17 05:26 Range/Units White Blood Count 9.53 4.8-10.8 K/uL Red Blood Count 3.60 4.2-5.4 M/uL Hemoglobin 11.3 12.0-16.0 g/dL Hematocrit 33.7 37-47 % Mean Corpuscular Volume 93.6 80-100 fL Mean Corpuscular Hemoglobin 31.4 25-34 pg Mean Corpuscular Hemoglobin Concent 33.5 32-36 g/dl RDW Standard Deviation 48.4 36.4-46.3 fL RDW Coefficient of Variation 14.1 11.5-14.5 % Platelet Count 70 130-400 K/uL Mean Platelet Volume 10.1 7.4-10.4 fL Prothrombin Time 11.4 9.0-12.0 SECONDS Prothromb Time International Ratio 1.1 0.9-1.1 Sodium Level 144 136-145 mmol/L Potassium Level 3.7 3.5-5.1 mmol/L Chloride Level 114 98-107 mmol/L Carbon Dioxide Level 24 21-32 mmol/L Anion Gap 6.0 3-11 mmol/L Blood Urea Nitrogen 21 7-18 mg/dl Creatinine 0.93 0.60-1.20 mg/dl Est Creatinine Clear Calc Drug Dose 44.2 ml/min Estimated GFR () 67.3 Estimated GFR (Non- 58.0 BUN/Creatinine Ratio 22.0 10-20 Random Glucose 80 70-99 mg/dl Calcium Level 7.4 8.5-10.1 mg/dl Magnesium Level 1.3 1.8-2.4 mg/dl Total Bilirubin 0.7 0.2-1 mg/dl Aspartate Amino Transf (AST/SGOT) 89 15-37 U/L Alanine Aminotransferase (ALT/SGPT) 178 12-78 U/L Alkaline Phosphatase 165 45-117 U/L Total Protein 5.6 6.4-8.2 gm/dl Albumin 2.4 3.4-5.0 gm/dl Globulin 3.2 2.5-4.0 gm/dl Albumin/Globulin Ratio 0.8 0.9-2 Lipase 1038 73-393 U/L Assessment & Plan Biliary sludge vs small cholelithiasis? Acute Pancreatitis- resolving - Leukocytosis resolved 9.53 today - abdominal pain improving , tenderness in RUQ on examination. No peritonitis, rigidity, or rebound - Total Bili normal - LFTs improving - Lipase Improved to 1,038 (14Tuesday) - Ct scan of abdomen and pelvis without oral and iv contrast 02/14/2017: " Mild diffuse pancreatic edema cannot be excluded", limited due to no contrast Plan: Plan for laparoscopic cholecystectomy tomorrow by Dr. Dexter. He has discussed the surgery with the patient and informed consent has been obtained. Continue clear liquids today NPO after midnight continue medical management Continue IV abx. Continue IV pain medication, and IV Zofran as needed Dr. Hernandez has seen and examined patient, agrees with above. Pt seen and examined. Agree with note above. Pain improved. Exam normal. For lap joss tomorrow.
--- NOTE | 2017-02-16 16:50 | Cardiology Follow-Up ---
Cardiology Follow-Up Date of Service Feb 16, 2017. Cardiology Follow-Up Subjective Patient is resting comfortably in the bedside chair without complaints of chest pain or dyspnea. Objective Blood pressure is 126/77 with a regular pulse of 86. Respiratory rate is 16, the patient is afebrile at 36.8 degree Celsius. Saturations 92 percent on room air. Neck is supple with full carotid upstrokes. There are no carotid bruits. Jugular venous pressure is flat at 90 degrees. Cardiovascular exam reveals a regular rhythm with a normal S1 and S2. Heart sounds are distant. No obvious murmurs. Lungs are clear without rales, rhonchi, or wheezes. Abdomen is soft with some tenderness to deep palpation. Extremities reveal intact radial artery pulses bilaterally. There is no peripheral edema. Data CBC notes a hemoglobin of 11.3, hematocrit 33.7, white count 9.5, [place] [address]. Electrolytes noticed of 144, potassium 3.7, chloride 114, bicarb 24, BUN 21, creatinine 0.9, and glucose of 80. AST is decreasing and now at 89. ALT is also decreasing and now down to 178. Impression and plan 1. Acute cholecystitis/pancreatitis-patient will proceed to the operating room tomorrow with Dr. Dexter. She is an acceptable cardiac risk for surgery. 2. Coronary artery disease-history of acute anterior wall FL with LAD stent in April 1999. Had nonobstructive disease at the time of a catheterization in June 2003. Continue medical management. 3. 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 The device was placed because of SA susu arrest and Mobitz type 2 av block. 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 Hypertension-controlled 6. Hypercholesterolemia
[2017-02-16 20:36] VITALS: BP 146/83; PULSE 67; TEMP 36.9; O2SAT 94
[2017-02-16] MEDS: PRAMIPEXOLE DIHYDROCHLORIDE 0.25MG TAB PO SCH (20:47)
[2017-02-16 22:58] VITALS: BP 124/70; PULSE 69; TEMP 36.8; O2SAT 95
[2017-02-17] VITALS (10 sets, daily range): BP systolic 125–159; BP diastolic 72–92; PULSE 62–88; TEMP 36.3–37; O2SAT 93–98
[2017-02-17] MEDS: CIPROFLOXACIN / D5W 400 MG in PREMIXED IN D5W 200 ML IV SCH ×2 (03:34→15:38)
[2017-02-17] MEDS: METRONIDAZOLE / NSS 500 MG in PREMIXED NSS 100 ML IV SCH ×4 (06:24→23:09)
[2017-02-17 07:37] LABS: ALB/GLOB RATIO 0.8 (0.9-2); BUN/CREATININE RATIO 14.7 (10-20); CALCIUM 7.9 mg/dl (8.5-10.1); CREATININE 0.79 mg/dl (0.60-1.20); POTASSIUM 3.7 mmol/L (3.5-5.1)
[2017-02-17] MEDS: SODIUM CHLORIDE 0.9% 1000ML 1,000 ML IV SCH ×2 (07:40→14:14)
[2017-02-17] MEDS ORDERED: FENTANYL CITRATE INJ 50 MCG/1 ML 2 ML VIAL ONE (08:47)
[2017-02-17] MEDS ORDERED: MIDAZOLAM HCL 1 MG/ML 2ML VIAL ONE (08:47)
--- NOTE | 2017-02-17 08:49 | Progress Note ---
Progress Note Date of Service Feb 17, 2017. (Nhi Petit CRNP) 02/17/17 (Giovanny Payan M.D.) Progress Note GI quick note: GI following for pt w pancreatitis, elevated LFTs. CT and gallbladder u/s w signs of cholecystitis but no gallstones noted, CBD 6mm. She couldn't go through MRCP given pacemaker status. LFTs and Lipase trending down, leukocytosis resolved. Likely she had passed stones or sludge. She is scheduled to undergo lap cholecystectomy by Dr. Dexter in OR today. Dr. Payan and myself saw pt today in her room. We obtained ERCP consent in the event that her intra op cholangiogram is positive and is in need of CBD stone removal though this seems unlikely. ERCP procedure, risks vs benefits reviewed w pt. She had opportunity to ask questions/concerns. (Nhi Petit CRNP) ERCP discussed at length with patient and the indications for doing this procedure immediately after laparoscopic cholecystectomy. She is comfortable without abdominal tenderness. ATTESTATION: I have performed a history and physical examination of this patient and reviewed the electronic record. Specifically, on physical examination see above. I have discussed the case with HAROON Cisneros. The above note reflects my findings, conclusions, and recommendations. Giovanny Payan MD (Giovanny Payan M.D.)
[2017-02-17] MEDS ORDERED: ONDANSETRON INJ 2 MG/ML 2 ML VIAL IV PRN (09:15)
[2017-02-17] MEDS ORDERED: FENTANYL CITRATE INJ 50 MCG/1 ML 2 ML VIAL IV PRN (09:15)
[2017-02-17] MEDS ORDERED: EpHEDrine SULFATE INJ 50 MG/ML AMP IV PRN (09:15)
[2017-02-17] MEDS ORDERED: HYDROmorphone INJ 1 MG/ML SYR IV PRN ×2 (09:15→09:25)
[2017-02-17] MEDS ORDERED: ATROPINE SULFATE 0.1 MG/ML 5ML SYR IV PRN (09:15)
--- NOTE | 2017-02-17 09:18 | Surgery Progress Note ---
Surgery Progress Note Date of Service Feb 17, 2017. Subjective Post OP Day: HD # 4 + feeling well, + bowel movement, + flatus, + pain controlled, + diet ( tolerating clears last evening, currently NPO), No complaints, No chest pain, No SOB, No nausea, No vomiting Objective Vital Signs: Date Time Temp Pulse Resp B/P (MAP) Pulse Ox O2 Delivery O2 Flow Rate FiO2 02/17/17 06:58 37.0 70 19 138/81 (100) 93 Room Air 02/17/17 00:05 Room Air 02/16/17 22:58 36.8 69 15 124/70 (88) 95 Room Air 02/16/17 20:36 36.9 67 16 146/83 (104) 94 Room Air 02/16/17 16:00 Room Air 02/16/17 15:05 36.7 69 18 143/85 (104) 94 Room Air General Appearance: WD/WN, no apparent distress Head: normocephalic, atraumatic Neck: trachea midline Respiratory/Chest: lungs clear, normal breath sounds, no respiratory distress, no accessory muscle use Cardiovascular: regular rate, rhythm, no murmur Abdomen: non distended, soft, + tenderness (RUQ, negative Menchaca's no peritonitis or rigidity) Laboratory Results: Results Past 24 Hours Test 02/17/17 06:35 Range/Units Sodium Level 144 136-145 mmol/L Potassium Level 3.7 3.5-5.1 mmol/L Chloride Level 114 98-107 mmol/L Carbon Dioxide Level 23 21-32 mmol/L Anion Gap 7.0 3-11 mmol/L Blood Urea Nitrogen 12 7-18 mg/dl Creatinine 0.79 0.60-1.20 mg/dl Est Creatinine Clear Calc Drug Dose 52.1 ml/min Estimated GFR () 81.9 Estimated GFR (Non- 70.7 BUN/Creatinine Ratio 14.7 10-20 Random Glucose 92 70-99 mg/dl Calcium Level 7.9 8.5-10.1 mg/dl Total Bilirubin 0.6 0.2-1 mg/dl Aspartate Amino Transf (AST/SGOT) 46 15-37 U/L Alanine Aminotransferase (ALT/SGPT) 120 12-78 U/L Alkaline Phosphatase 140 45-117 U/L Total Protein 5.5 6.4-8.2 gm/dl Albumin 2.4 3.4-5.0 gm/dl Globulin 3.1 2.5-4.0 gm/dl Albumin/Globulin Ratio 0.8 0.9-2 Lipase 942 73-393 U/L Assessment & Plan Acute Pancreatitis- resolving Acute Cholecystitis Biliary sludge vs small cholelithiasis -vitals stable - pain minimal and improving - LFTS, Lipase improving - total bilirubin wnl Plan: Laparoscopic cholecystectomy today Informed consent has been obtained remain NPO
--- NOTE | 2017-02-17 09:26 | Cardiology Follow-Up ---
Cardiology Follow-Up Date of Service Feb 17, 2017. Cardiology Follow-Up Subjective The patient is resting comfortably in bed without complaints of chest pain or dyspnea. She is scheduled for surgery at 11:30 a.m. Objective Blood pressure is 138/80 with a regular pulse of 70. Respirations 18 the patient is afebrile at 37.6 degree Celsius. Saturations 93 percent on room air. Neck is supple with full carotid upstrokes. No carotid bruits. Jugular venous pressure is flat at 90 degrees. There is no thyromegaly. Cardiovascular exam reveals a regular rhythm with a normal S1 and S2. A 1/6 basal systolic ejection murmur is noted. Lungs are clear without rales, rhonchi or wheezes. Chest reveals a palpable pacemaker in the left subclavicular region. Abdomen is soft without bruits. Extremities reveal no edema. Data Electrolytes notice sodium of 144 come testing 3.7, chloride 114, bicarb 23, BUN 12 creatinine 0.8, glucose 92. AST is 46 and ALT is 120. Lipase is 942. All values are decreasing. Impression and plan 1. Acute cholecystitis/pancreatitis-patient will have a cholecystectomy performed later today. Acceptable cardiac risk. 2. Coronary artery disease-quiescent current medications 3. Status post DDD pacemaker-for sinus arrest and Mobitz type 2 av block. 3. 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
[2017-02-17] MEDS ORDERED: EpHEDrine SULFATE 50MG/5ML SYR ONE (09:27)
[2017-02-17] MEDS: MAGNESIUM OXIDE 400 MG TAB PO SCH ×2 (09:41→21:12)
[2017-02-17] MEDS: NITROGLYCERIN 0.2 MG/HR PATCH TD SCH (09:41)
[2017-02-17] MEDS: METOPROLOL TARTRATE 25 MG TAB PO SCH ×2 (09:42→21:12)
[2017-02-17] MEDS ORDERED: CONRAY 60% 50 ML VIAL ONE (11:00)
[2017-02-17] MEDS ORDERED: HEPARIN SOD (PORCINE) 1000 UNIT/ML 10 ML VIAL ONE (11:00)
[2017-02-17] MEDS ORDERED: CEFAZOLIN SOD 1 GM VIAL ONE (11:00)
[2017-02-17] MEDS ORDERED: BUPIVACAINE 0.5 % 5 MG/1 ML MPF 30ML VIAL ONE (11:01)
[2017-02-17] MEDS ORDERED: LARYING-O-JET KIT (LTA) ONE ×2 (11:55)
[2017-02-17] MEDS ORDERED: PROPOFOL IV EMULSION 10 MG/ML 20 ML VIAL IV ONE (12:08)
[2017-02-17] MEDS ORDERED: DEXAMETHASONE SOD INJ 4 MG/ML VIAL ONE (12:08)
[2017-02-17] MEDS ORDERED: ONDANSETRON INJ 2 MG/ML 2 ML VIAL ONE (12:08)
[2017-02-17] MEDS ORDERED: LIDOCAINE HCL 2% 2 ML VIAL (20MG/ML) ONE (12:08)
[2017-02-17] MEDS ORDERED: GLYCOPYRROLATE INJ 0.2 MG/ML VIAL ONE (12:08)
[2017-02-17] MEDS ORDERED: NEOSTIGMINE METHYLSULFATE 5 MG/5 ML SYR ONE (12:08)
[2017-02-17] MEDS ORDERED: ROCURONIUM BROMIDE 10 MG/ML 5 ML VIAL ONE (12:08)
--- NOTE | 2017-02-17 12:44 | DIAGNOSTIC IMAGING REPORT ---
INTRAOPERATIVE CHOLANGIOGRAM HISTORY: Post cholecystectomy. FLUOROSCOPY TIME: 22 seconds. FINDINGS: Fluoroscopy was provided for an intraoperative cholangiogram status post cholecystectomy. Contrast was injected through the cystic duct remnant. Mild prominence of the common bile duct. Filling defect is present within the common duct. Possibility of air bubble is considered as it is not seen in image 8. Possible additional air bubbles mid common duct adjacent to the cystic duct insertion. This is best seen image 9. Trace contrast extravasation. Good flow of contrast to the duodenum. IMPRESSION: Fluoroscopy provided for an intraoperative cholangiogram status post cholecystectomy. Probable air bubbles seen image 9. Mild biliary ductal prominence presumably on a postoperative basis. Electronically signed by: Terry Youssef M.D. 02/17/2017 12:42 PM Dictated Date/Time: 02/17/2017 12:39 PM
--- NOTE | 2017-02-17 13:04 | [facility] Post Operative Brief Note ---
Immediate Operative Summary Operative Date Feb 17, 2017. Pre-Operative Diagnosis Acute Cholecystitis Post-Operative Diagnosis Same as preop Procedure(s) Performed Laparoscopic Cholecystectomy with Cholangiogram Surgeon Dr. Dexter Workplace Relations Adviser Surgeon(s) Cindi Urbina PA-C Estimated Blood Loss 10mL Findings See dictation Specimens A. Gall Bladder Drains None Anesthesia General Complication(s) None Disposition Recovery Room / PACU
--- NOTE | 2017-02-17 13:12 | Hospitalist Progress Note ---
Hospitalist Progress Note Date of Service Feb 17, 2017. (Angela Pedro PA-C) Subjective Pt evaluation today including: conversation w/ patient, physical exam, chart review, lab review, review of studies, review of inpatient medication list Patient seen and evaluated. No acute events overnight. Labs continue to trend down and patient with minimal abdominal pain. She was placed NPO at midnight and is due to cholecystectomy today. She was tolerating clear liquid diet prior to NPO status. No acute complaints. Constitutional: No fever, No chills Respiratory: No cough, No shortness of breath Cardiovascular: No chest pain, No palpitations Abdomen: + pain (minimal in RUQ), No nausea, No vomiting, No diarrhea, No constipation Musculoskeletal: No swelling, No calf pain Female : No dysuria (Angela Pedro PA-C) Medications Current Inpatient Medications Medications (Trade) Dose Ordered Sig/Casey Route Start Time Stop Time Status Last Admin Dose Admin Sodium Chloride 1,000 ml @ 150 mls/hr Q6H40M IV 02/13/17 17:39 03/15/17 17:38 02/17/17 07:40 150 MLS/HR Ondansetron HCl (Zofran Inj) 4 mg Q6H PRN IV 02/13/17 17:45 03/15/17 17:44 Nitroglycerin (Nitrostat Tab) 0.4 mg UD PRN SL 02/13/17 17:45 03/15/17 17:44 Nitroglycerin (Nitro-Dur 0.2 Mg/Hr Patch) 1 patch QAM TD 02/14/17 09:00 03/16/17 08:59 02/16/17 09:06 1 PATCH Ciprofloxacin/ Dextrose 400 mg/ Prmx 200 ml @ 100 mls/hr Q12@0400,1600 IV 02/14/17 04:00 02/24/17 03:59 02/17/17 03:34 100 MLS/HR Metronidazole 500 mg/Prmx 100 ml @ 100 mls/hr Q8H IV 02/13/17 23:00 02/23/17 22:59 02/17/17 06:24 100 MLS/HR Miscellaneous (Remove Nitro-Dur Patch) 1 ea DAILY@2100 N/A 02/13/17 21:00 03/15/17 20:59 02/16/17 20:44 1 EA Morphine Sulfate (MoRPHine SULFATE INJ) 2 mg Q6H PRN IV 02/14/17 12:30 02/28/17 12:29 Pramipexole Dihydrochloride (miraPEX TAB) 0.125 mg HS PO 02/15/17 21:00 03/17/17 20:59 02/16/17 20:47 0.125 MG Metoprolol Tartrate (Lopressor Tab) 25 mg BID PO 02/15/17 21:00 03/17/17 20:59 02/17/17 09:42 25 MG Magnesium Oxide (Mag-Ox Tab) 400 mg BID PO 02/16/17 09:00 03/18/17 08:59 02/16/17 20:46 400 MG Fentanyl Citrate (Fentanyl Inj) 25 mcg Q5M PRN IV 02/17/17 09:15 02/17/17 14:00 Ondansetron HCl (Zofran Inj) 4 mg ONE PRN IV 02/17/17 09:15 02/17/17 14:00 Ephedrine Sulfate (EpHEDrine SULFATE INJ) 5 mg Q5M PRN IV 02/17/17 09:15 02/17/17 14:00 Atropine Sulfate (Atropine Sulfate 0.1MG/Ml Inj) 0.5 mg Q1M PRN IV 02/17/17 09:15 02/17/17 14:00 Hydromorphone HCl (Dilaudid Inj) 0.25 mg Q5M PRN IV 02/17/17 09:25 02/17/17 14:00 (Angela Pedro PA-C) Objective Vital Signs Date Time Temp Pulse Resp B/P (MAP) Pulse Ox O2 Delivery O2 Flow Rate FiO2 02/17/17 07:30 Room Air 02/17/17 06:58 37.0 70 19 138/81 (100) 93 Room Air 02/17/17 00:05 Room Air 02/16/17 22:58 36.8 69 15 124/70 (88) 95 Room Air 02/16/17 20:36 36.9 67 16 146/83 (104) 94 Room Air 02/16/17 16:00 Room Air 02/16/17 15:05 36.7 69 18 143/85 (104) 94 Room Air (Angela Pedro PA-C) Physical Exam General Appearance: WD/WN, no apparent distress Eyes: sclerae normal ENT: hearing grossly normal Neck: supple, no JVD, trachea midline Respiratory/Chest: lungs clear, normal breath sounds, no respiratory distress, no accessory muscle use Cardiovascular: regular rate, rhythm Abdomen: normal bowel sounds, soft, + tenderness (mild in RUQ without guarding or rigidity) Extremities: no pedal edema, no calf tenderness Neurologic/Psychiatric: alert, oriented x 3 Skin: normal color, warm/dry (Angela Pedro, BRENTC) Laboratory Results Last 24 Hours Test 02/17/17 06:35 Sodium Level 144 mmol/L Potassium Level 3.7 mmol/L Chloride Level 114 mmol/L Carbon Dioxide Level 23 mmol/L Anion Gap 7.0 mmol/L Blood Urea Nitrogen 12 mg/dl Creatinine 0.79 mg/dl Est Creatinine Clear Calc Drug Dose 52.1 ml/min Estimated GFR () 81.9 Estimated GFR (Non- 70.7 BUN/Creatinine Ratio 14.7 Random Glucose 92 mg/dl Calcium Level 7.9 mg/dl Total Bilirubin 0.6 mg/dl Aspartate Amino Transf (AST/SGOT) 46 U/L Alanine Aminotransferase (ALT/SGPT) 120 U/L Alkaline Phosphatase 140 U/L Total Protein 5.5 gm/dl Albumin 2.4 gm/dl Globulin 3.1 gm/dl Albumin/Globulin Ratio 0.8 Lipase 942 U/L (Angela Pedro PA-C) Assessment and Plan 81 female with acute cholecystitis and pancreatitis Acute Cholecystitis and Acute Pancreatitis: IMPROVING - Cipro 400 mg BID and Flagyl 400 mg BID - DAY #5 - NSS at 150 mL/hr - GI and Gen Surg following - plan for lap vale today Elevated Creatinine: RESOLVED - Will provide IVF and monitor BMP CAD S/P IN with Stent and Atrial Fibrillation S/P Pacemaker: STABLE - Metoprolol 25 mg BID - Cardiology following - Risk stratification per cardiology DVT Prophylaxis: ROSE/SCDs - H/O HIT and will withhold chemical prophylaxis Code Status: FULL RESUSCITATION Disposition: - Lap Vale today - Lives at home with sons - no needs anticipated but will obtain PT evals - pending labs and recovery possible D/C 1-[address] [facility] stay due to: multiple IV medications needed (Angela Pedro, PACallieC) Reviewed: Pt Seen/Exam by Me (Cindi Mayorga, ) History Pt is doing well s/p lap vale. Has been tolerating water but has not been given other PO yet. No issues at present. Denies chest pain, SOB, n/v. Agree with HPI/ROS as noted. (Cindi Mayorga, ) General Appearance: WD/WN, no apparent distress Respiratory: normal breath sounds, no respiratory distress Cardiovascular: normal peripheral pulses, regular rate, rhythm Gastrointestinal: non tender, soft Extremities: non-tender, no pedal edema Neurologic/Psychiatric: alert, normal mood/affect Skin Characteristics: normal color, warm/dry (Cindi Mayorga, ) Assessment/Plan Agree with plan as outlined above s/p lap vale GS pancreatitis Monitor (Cindi Mayorga, DO)
--- NOTE | 2017-02-17 13:14 | [facility] Operative Report ---
Operative Report Operative Date Feb 17, 2017. Pre-Operative Diagnosis Acute Cholecystitis Post-Operative Diagnosis Same as preop Procedure(s) Performed Laparoscopic Cholecystectomy with Cholangiogram Surgeon Dr. Dexter Potato Chip Fryer Surgeon(s) Cindi Urbina PA-C Estimated Blood Loss 10mL Findings The gallbladder was not dilated. There were adhesions of the omentum end of the duodenum to the gallbladder wall. The majority of those were flimsy and taken down with ease. The cystic duct was mildly dilated. Liver normal size and contour. Cholangiogram was performed. There was no evidence of filling defect and there was flow into the duodenum. Specimens A. Gall Bladder Drains None Anesthesia General Disposition Recovery Room / PACU Description of Procedure The patient was given a general anesthetic and the area was prepped and draped in usual sterile fashion. Transverse incision was made below the umbilicus carried down through the subcutaneous tissue to the fascia which was grasped with 2 Destinee clamps and incised between. The peritoneum was identified grasped and sized the introducer was placed bluntly. The abdomen was then insufflated to a pressure of 15 mmHg with carbon dioxide. The upper midline midclavicular and anterior axillary introducers were placed under direct vision through small skin incisions. Traction was placed on the gallbladder beginning at the mid body the adhesions were taken down. Several of them were thickened and required cautery. When yhe duodenal adhesions were identified those were taken down using blunt dissection. No cautery was used for those. I was then able to open the peritoneum on the lateral side of the infundibulum and dissected towards the common bile duct. There was edema within the tissues beneath the peritoneum. Similar dissection was then carried over the anterior surface of the infundibulum and into the triangle which was opened. Further dissection was carried out of the infundibulum away from the liver on the lateral medial sides allowing better mobilization. That allowed me to identify the anterior surface of the cystic duct. There was a tubular structure that I think was most likely a branch of the cystic artery adherent to the lateral wall of the cystic duct. Both structures were able to be a plane established between them. The anterior branch was clipped twice proximally once Gallbladder divided. That allowed me to elevate straight the cystic duct and confirm the cystic duct gallbladder junction. A clip was placed at the junction of the gallbladder and the cystic duct and the cystic duct was partially transected. The cholangiocatheter was placed within the lumen of the cystic duct. The balloon was inflated. There was no leaking. The cholangiogram was performed with findings as above. The cholangiocatheter was removed. The proximal cystic duct and transection was completed. The gallbladder was then peeled off the liver bed and in doing so with dissection behind where the cystic duct was there was another branch which was isolated and clipped and divided. Dissection of the gallbladder off the liver bed was completed. It was placed into an Endobag and brought up to the upper midline incision with ease. The introducer was replaced. The liver edge was elevated the subdiaphragmatic and subhepatic spaces were irrigated and irrigation removed. That was repeated until the return was clear. The gallbladder bed of the liver was inspected. There were 2 areas with mild amount of oozing that were easily controlled with cautery. The clips were inspected and were intact. The gallbladder bed of the liver was again inspected and there was no bleeding. The gas was allowed to escape and the introducers were removed. The fascia of the umbilical and upper midline introducer sites was closed with interrupted 0 Vicryl the skin of all incisions was closed with 4-0 Monocryl in either running or interrupted fashion. The skin was anesthetized with 0.5% Marcaine. The skin was cleansed dry benzoin placed and Steri-Strips applied. Estimated blood loss was 10 mL. Sponge, needle and instrument counts were correct prior to closure. The patient tolerated surgical procedure without complication was transferred to recovery. I attest to the content of the Intraoperative Record and any orders documented therein. Any exceptions are noted below.
[2017-02-17] MEDS ORDERED: MoRPHine SULFATE 4 MG/ML 1 ML CARP\\VIAL IV PRN (13:15)
[2017-02-17] MEDS ORDERED: OXYCODONE/ACETAMINOPHEN 5-325 TAB PO PRN (13:15)
--- NOTE | 2017-02-17 13:48 | Anesthesiology Progress Note ---
Anesthesia Post Op Note Date & Time Feb 17, 2017 at 13:48 Vital Signs Pain Intensity: 0 Vital Signs Past 12 Hours Date Time Temp Pulse Resp B/P (MAP) Pulse Ox O2 Delivery O2 Flow Rate FiO2 02/17/17 13:42 72 17 98 02/17/17 13:42 72 17 02/17/17 13:41 139/77 02/17/17 13:37 68 21 100 02/17/17 13:37 71 21 02/17/17 13:36 139/75 02/17/17 13:33 74 18 02/17/17 13:33 74 18 99 02/17/17 13:31 136/79 02/17/17 13:28 73 19 99 02/17/17 13:28 74 19 02/17/17 13:26 130/73 02/17/17 13:23 86 14 02/17/17 13:23 85 14 99 02/17/17 13:21 127/81 02/17/17 13:19 124/88 02/17/17 13:18 36.2 90 16 124/88 96 Mask 10 02/17/17 07:30 Room Air 02/17/17 06:58 37.0 70 19 138/81 (100) 93 Room Air Notes Mental Status: alert / awake / arousable, participated in evaluation Pt Amnestic to Procedure: Yes Nausea / Vomiting: adequately controlled Pain: adequately controlled Airway Patency, RR, SpO2: stable & adequate BP & HR: stable & adequate Hydration State: stable & adequate Anesthetic Complications: no major complications apparent
[2017-02-17] MEDS ORDERED: NURSING VERBAL MED ORDER ONE (18:15)
[2017-02-17] MEDS: PRAMIPEXOLE DIHYDROCHLORIDE 0.25MG TAB PO SCH (21:12)
[2017-02-18] MEDS: CIPROFLOXACIN / D5W 400 MG in PREMIXED IN D5W 200 ML IV SCH (03:50)
[2017-02-18] MEDS: METRONIDAZOLE / NSS 500 MG in PREMIXED NSS 100 ML IV SCH (06:25)
[2017-02-18 07:05] LABS: MEAN CELL VOLUME 91.9 fL (80-100); MEAN CORPUSCULAR HEMOGLOBIN 30.9 pg (25-34); MEAN CORPUSCULAR HGB CONC 33.6 g/dl (32-36); MEAN PLATELET VOLUME 10.8 fL (7.4-10.4); PLATELET COUNT 101 K/uL (130-400); RED BLOOD COUNT 3.59 M/uL (4.2-5.4); WHITE BLOOD COUNT 7.34 K/uL (4.8-10.8)
--- NOTE | 2017-02-18 07:26 | Surgery Progress Note ---
Surgery Progress Note Date of Service Feb 18, 2017. Subjective + diet (tolerated clear liquids), No nausea, No vomiting Incisional discomfort only Objective Vital Signs: Date Time Temp Pulse Resp B/P (MAP) Pulse Ox O2 Delivery O2 Flow Rate FiO2 02/18/17 00:25 Room Air 02/17/17 23:04 36.9 65 18 132/77 (95) 93 Room Air 02/17/17 21:10 88 159/83 (108) 94 Room Air 02/17/17 19:04 36.6 68 18 125/74 (91) 97 Nasal Cannula 2.0 02/17/17 17:15 36.4 63 18 146/92 (110) 97 Nasal Cannula 2.0 02/17/17 16:16 36.6 66 16 131/78 (95) 98 Nasal Cannula 2.0 02/17/17 15:40 97 Nasal Cannula 2.0 02/17/17 15:15 36.5 62 16 139/72 (94) 97 Nasal Cannula 1.0 02/17/17 14:42 36.3 66 18 151/87 (108) 97 Nasal Cannula 1.0 02/17/17 14:16 97 Nasal Cannula 1.0 02/17/17 14:15 36.3 66 20 148/80 (102) 96 Nasal Cannula 1.0 02/17/17 14:04 68 23 97 02/17/17 14:04 67 23 02/17/17 14:01 150/76 02/17/17 13:59 69 22 97 02/17/17 13:59 69 22 02/17/17 13:56 145/79 02/17/17 13:54 75 22 98 02/17/17 13:54 75 22 02/17/17 13:53 75 24 02/17/17 13:53 76 24 97 02/17/17 13:51 138/79 02/17/17 13:48 72 22 02/17/17 13:48 73 22 97 02/17/17 13:46 146/75 02/17/17 13:43 72 19 97 02/17/17 13:43 72 19 02/17/17 13:42 72 17 98 02/17/17 13:42 72 17 02/17/17 13:41 139/77 02/17/17 13:37 68 21 100 02/17/17 13:37 71 21 02/17/17 13:36 139/75 02/17/17 13:33 74 18 02/17/17 13:33 74 18 99 02/17/17 13:31 136/79 02/17/17 13:28 73 19 99 02/17/17 13:28 74 19 02/17/17 13:26 130/73 02/17/17 13:23 86 14 02/17/17 13:23 85 14 99 02/17/17 13:21 127/81 02/17/17 13:19 124/88 02/17/17 13:18 36.2 90 16 124/88 96 Mask 10 02/17/17 07:30 Room Air Abdomen: normal bowel sounds, non distended, soft, + tenderness (incisional only) Laboratory Results: Results Past 24 Hours Test 02/18/17 06:16 Range/Units White Blood Count 7.34 4.8-10.8 K/uL Red Blood Count 3.59 4.2-5.4 M/uL Hemoglobin 11.1 12.0-16.0 g/dL Hematocrit 33.0 37-47 % Mean Corpuscular Volume 91.9 80-100 fL Mean Corpuscular Hemoglobin 30.9 25-34 pg Mean Corpuscular Hemoglobin Concent 33.6 32-36 g/dl RDW Standard Deviation 47.5 36.4-46.3 fL RDW Coefficient of Variation 13.9 11.5-14.5 % Platelet Count 101 130-400 K/uL Mean Platelet Volume 10.8 7.4-10.4 fL Assessment & Plan S/P lap joss with cholangiogram Awaiting LFT's and lipase Can give low fat diet Encourage ambulation Okay for D/C from surgical standpoint Instructions discussed
--- NOTE | 2017-02-18 07:28 | Discharge Instructions ---
Discharge Instructions Date of Service Feb 18, 2017. Admission Reason for Admission: Acute Cholecystitis, Pancreatitis Discharge Discharge Diagnosis / Problem: Same Discharge Goals Goal(s): Decrease discomfort Activity Recommendations Activity Limitations: per Instructions/Follow-up section Shower/Bathe: tomorrow (Shower only) . Instructions / Follow-Up Instructions / Follow-Up Post-Surgical ~ Discharge Instructions Activity Recommendations: - lifting limitation: (10 pounds for 2 weeks), - exercise/sex/sports limit: (nonstrenuous for 2 weeks), - driving or machine use limit: (none for 1 week), - Shower/bathe limit: (may shower beginning tomorrow) Diet: - Resume previous diet SPECIAL CARE INSTRUCTIONS: - May shower in 24 hours. Let water run over area and pat dry. - Leave steri strips on for one week. - Call the surgeon's office with any questions or concerns - - (ex. temperature higher than 101 degrees F, excessive bleeding or pain). MEDICATIONS: - Resume previous medications unless instructed otherwise by your surgeon. - Ibuprofen 600 mg every 6 hours with food - Percocet 1 every 4 hours, as needed for pain FOLLOW UP VISIT: - If not already scheduled, please call the office to schedule a two week follow-up appointment. Office number Current Hospital Diet Patient's current hospital diet: Clear Liquid Diet Discharge Diet Recommended Diet: Low Fat Diet Procedures Procedures Performed: Laparoscopic Cholecystectomy with Cholangiogram Pending Studies Studies pending at discharge: no Laboratory Results Lipid Panel Test 02/15/17 07:48 Range/Units Triglycerides Level 63 0-150 mg/dl Cholesterol Level 76 0-200 mg/dl HDL Cholesterol 27 mg/dl Cholesterol/HDL Ratio 2.8 LDL Cholesterol, Calculated 36 mg/dl Medical Emergencies . Who to Call and When: Medical Emergencies: If at any time you feel your situation is an emergency, please call 911 immediately. . Non-Emergent Contact Non-Emergency issues call your: Primary Care Provider, Surgeon Call Non-Emergent contact if: your pain is worsening, wound has increased redness, wound has increased pain . "Provider Documentation" section prepared by Terry Dexter. . VTE Core Measure Inpt VTE Proph given/why not?: Drug Allergy (patient has an allergy to heparin with induced thrombocytopenia)
[2017-02-18 07:40] VITALS: BP 126/82; PULSE 72; TEMP 36.8; O2SAT 94
[2017-02-18 07:41] LABS: ALB/GLOB RATIO 0.7 (0.9-2); BUN/CREATININE RATIO 13.2 (10-20); CREATININE 0.74 mg/dl (0.60-1.20)
[2017-02-18] MEDS: NITROGLYCERIN 0.2 MG/HR PATCH TD SCH (08:30)
[2017-02-18] MEDS: METOPROLOL TARTRATE 25 MG TAB PO SCH (08:31)
[2017-02-18] MEDS: MAGNESIUM OXIDE 400 MG TAB PO SCH (08:31)
[2017-02-18] MEDS ORDERED: OXYC-57 PO (08:53)
--- NOTE | 2017-02-18 09:02 | Discharge Instructions ---
Discharge Instructions Date of Service Feb 18, 2017. Admission Reason for Admission: Acute Cholecystitis, Pancreatitis Discharge Discharge Diagnosis / Problem: Acute Cholecystitis with Acute Pancreatitis Discharge Goals Goal(s): Decrease discomfort, Improve function, Increase independence Activity Recommendations Activity Limitations: as noted below (See instructions from Dr. Dexter) . Instructions / Follow-Up Instructions / Follow-Up Acute Cholecystitis and Acute Pancreatitis: IMPROVING - Please follow instructions provided by Dr. Dexter in regards to lifting and showering. - Dr. Dexter's instructions provide his number to schedule a follow-up in two weeks - Please continue a low fat diet Current Hospital Diet Patient's current hospital diet: Low Fat Diet Discharge Diet Recommended Diet: Low Fat Diet Procedures Procedures Performed: Laparoscopic Cholecystectomy with Cholangiogram Pending Studies Studies pending at discharge: no Laboratory Results Lipid Panel Test 02/15/17 07:48 Range/Units Triglycerides Level 63 0-150 mg/dl Cholesterol Level 76 0-200 mg/dl HDL Cholesterol 27 mg/dl Cholesterol/HDL Ratio 2.8 LDL Cholesterol, Calculated 36 mg/dl Medical Emergencies . Who to Call and When: Medical Emergencies: If at any time you feel your situation is an emergency, please call 911 immediately. . Non-Emergent Contact Non-Emergency issues call your: Primary Care Provider Call Non-Emergent contact if: you have a fever, your pain is concerning you, you have any medication questions . . "Provider Documentation" section prepared by Angela Pedro. . VTE Core Measure Inpt VTE Proph given/why not?: T.E.D. 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
[2017-02-18 09:08] VITALS: O2SAT 94
--- NOTE | 2017-02-18 09:57 | Cardiology Follow-Up ---
Cardiology Follow-Up Date of Service Feb 18, 2017. Cardiology Follow-Up Subjective The patient is resting comfortably in the bedside chair without complaints of chest pain or dyspnea. She ate breakfast this morning without difficulty. Her postoperative pain is well controlled. Objective Blood pressure is 126/82 with a regular pulse of 72. Respiratory rate is 18 the patient is afebrile at 36.8 degrees Celsius. Saturations 94 percent on room air. Neck is supple with full carotid upstrokes. No carotid bruits. Jugular venous pressure is flat at 90 degrees. There is no thyromegaly. Cardiovascular exam reveals a regular rhythm with a normal S1 and S2. A 1/6 basal systolic ejection murmur is noted. No S3 or S4. Lungs are clear without rales, rhonchi, or wheezes. Abdomen is soft and nontender without bruits. Incisions intact. Extremities reveal intact radial artery pulses bilaterally. Trace pretibial edema is noted. Data CBC notes a hemoglobin of 11.1, hematocrit of 33.0, white count 7.3, and a platelet count of [id number]. Electrolytes noticed sodium of 142, potassium 4.0, chloride 112, bicarb 24, BUN 10, creatinine 0.7, glucose of 157. Lipid panel notes an LDL cholesterol 36, and an HDL of 27. Impression and plan 1. Acute cholecystitis/pancreatitis-status post laparoscopic cholecystectomy by Dr. Dexter yesterday. Patient progressing well. Liver transaminases continue to improve. 2. Coronary artery disease-suffered an anterior wall myocardial infarction in April 1999 treated with an LAD stent. Cardiac catheterization performed in June 2003 noted a patent stent and nonobstructive disease. Continue medical management. 3. DDDR pacemaker-most recent generator change was in March 2013. Was originally placed for SA node arrest and Mobitz type 2 av block. 4. Hypertension-controlled 5. Hypercholesterolemia-continue statin 6. Disposition-stable for hospital discharge from a cardiac perspective.
[2017-02-18 11:42] VITALS: BP 126/82; PULSE 72; TEMP 36.8; O2SAT 94
--- NOTE | 2017-02-18 16:11 | Discharge Summary ---
Discharge Summary Date of Service Feb 18, 2017. (Angela Pedro PA-C) Discharge Summary Admission Date: Feb 13, 2017 at 18:06 Discharge Date: Feb 18, 2017 Discharge Disposition: Home Principal Diagnosis: Acute Cholecystitis and Acute Pancreatitis Problems/Secondary Diagnoses: 1. CAD S/P AK with Stent 2. Atrial Fibrillation S/P Pacemaker Procedures: ULTRASOUND RIGHT UPPER QUADRANT ABDOMEN FINDINGS: Liver: The liver is normal in size and slightly heterogeneous in echotexture. There is mild central intrahepatic biliary ductal dilatation. The main portal vein is patent. Gallbladder: The gallbladder is distended. No shadowing gallstones are seen.. The gallbladder wall is thickened and edematous measuring up to 5 mm. Minimal sludge is noted. Trace pericholecystic fluid is identified. A sonographic Menchaca's sign is equivocal as the patient received analgesia. The common bile duct measures up to 0.6 cm in diameter. Pancreas: Visualized portions of the pancreatic head and body are normal in appearance. The splenic vein is patent. Right kidney: Survey images of the right kidney demonstrate cortical atrophy. There is no hydronephrosis. Ascites: None. IMPRESSION: The gallbladder is distended, with associated gallbladder wall thickening and edema. Pericholecystic fluid is noted. No shadowing gallstones are identified and a sonographic Menchaca's sign is equivocal. Findings are concerning for acute cholecystitis. Surgical consultation is advised. Consider a nuclear hepatobiliary scan for further assessment if cholecystitis does not fit the clinical presentation. CT SCAN OF THE ABDOMEN AND PELVIS WITHOUT CONTRAST FINDINGS: Lower chest: There are small bilateral pleural effusions. There is mild septal thickening/edema. Liver: The unenhanced liver is normal in size, contour, and attenuation. There is no intrahepatic biliary ductal dilatation. Gallbladder: The gallbladder is distended. No calculi are visualized on CT scanning. Spleen: Normal in size and attenuation. Pancreas: No pancreatic masses are visualized this noncontrast study. Mild diffuse pancreatic edema cannot be excluded. Adrenal glands: Unremarkable. Kidneys: No renal, ureteral, or bladder calculi are visualized. Bowel: There is extensive pancolonic diverticulosis. There is sigmoid wall thickening, likely secondary to peridiverticular muscular hypertrophy. There is no current evidence of significant peridiverticular inflammatory change. There are no findings to indicate acute appendicitis. There are no transition zones to indicate bowel obstruction. There are multiple fluid-filled borderline dilated proximal small bowel loops. Peritoneum: There is no intraperitoneal free air or abdominal ascites. Vasculature: The abdominal aorta is normal in course and caliber. Adenopathy: None. Pelvic viscera: The bladder, and pelvic viscera are unremarkable. Skeletal structures: There is partial ankylosis of the right SI joint. IMPRESSION: 1. Study limited due to lack of intravenous and oral contrast 2. Severe pandiverticulosis 3. No renal, ureteral, or bladder diverticula 4. No evidence of bowel obstruction. No evidence of free air 5. Stable sigmoid wall thickening 6. Distended gallbladder. No calculi are visualized. 7. No evidence of acute appendicitis 8. Partial ankylosis of the right SI joint 9. Equivocal mild diffuse pancreatic edema INTRAOPERATIVE CHOLANGIOGRAM FINDINGS: Fluoroscopy was provided for an intraoperative cholangiogram status post cholecystectomy. Contrast was injected through the cystic duct remnant. Mild prominence of the common bile duct. Filling defect is present within the common duct. Possibility of air bubble is considered as it is not seen in image 8. Possible additional air bubbles mid common duct adjacent to the cystic duct insertion. This is best seen image 9. Trace contrast extravasation. Good flow of contrast to the duodenum. IMPRESSION: Fluoroscopy provided for an intraoperative cholangiogram status post cholecystectomy. Probable air bubbles seen image 9. Mild biliary ductal prominence presumably on a postoperative basis. Consultations: 1. GI 2. General Surgery 3. Cardiology (Angela Pedro PA-C) Medication Reconciliation New Medications: Oxycodone/Acetaminophen 5MG/325MG (Percocet 5MG/325MG) Tab 1 TAB PO Q4H PRN for Pain for 3 Days, #18 TAB Continued Medications: Acetaminophen (Tylenol) 500 Mg Tab 1000 MG PO BID PRN Allopurinol (Allopurinol) 300 Mg Tab 300 MG PO DAILY, #90 Aspirin (Aspirin) 325 Mg Tab 325 MG PO DAILY Calcium/Vitamin D (Os-Rigoberto 500 Plus D) Tab 1 TAB PO QAM, TAB Ezetimibe/Simvastatin (Vytorin 10MG/40MG) Tab 1 TAB PO HS Furosemide (Lasix) 20 Mg Tab 20 MG PO DAILY, TAB Isosorbide Dinitrate (Isordil) 30 Mg Tab 30 MG PO QAM Metoprolol Tartrate (Lopressor) (Lopressor) 25 Mg Tab 25 MG PO BID, TAB Nitroglycerin (Nitrostat) 0.4 Mg Tab 0.4 MG UT PRN, BTL Discontinued Medications: Prednisolone Acetate (Ophth) (Pred Forte 1% Oph) 1 % Ivy 1 DROPS OPR BID, #10 ML Discharge Exam Review of Systems: Constitutional: No fever, No chills ENT: No nasal symptoms, No sore throat, No trouble swallowing Respiratory: No cough, No shortness of breath Cardiovascular: No chest pain, No palpitations Abdomen: + pain (incisional pain), No nausea, No vomiting, No diarrhea, No constipation Musculoskeletal: + swelling (minimal knee ) Genitourinary - Female: No dysuria Hematologic / Lymphatic: No abnormal bleeding/bruising, No clotting problems Integumentary: No rash Physical Exam: General Appearance: WD/WN, no apparent distress Eyes: sclerae normal ENT: hearing grossly normal Neck: supple, no JVD, trachea midline Respiratory/Chest: lungs clear, normal breath sounds, no respiratory distress, no accessory muscle use Cardiovascular: regular rate, rhythm, no gallop, no murmur Abdomen / GI: normal bowel sounds, non tender, soft Extremities: no pedal edema, + pertinent finding (mild non-pitting edema of bilateral knees; no erythema, no calf tenderness; posterior tibialis pulses present) Neurologic/Psychiatric: alert, oriented x 3 Skin: normal color, warm/dry (Angela Pedro, BRENTC) Hospital Course ADMISSION: This patient presents with a 1 day history of fevers and chills abdominal pain nausea vomiting. She should No known history of gallstones. Patient was short of breath because of a low-grade temperature. The patient's pain was focally in the abdomen to right upper quadrant was crampy in nature and rated 6 out of 10. Patient was found to have cholecystitis with pancreatitis on imaging and by serology. She is recommended for intake for management of these problems HOSPITAL COURSE: Ms Mata was admitted for acute cholecystitis complicated with an acute pancreatitis. She was initiated on Cipro and Flagyl and placed NPO while awaiting improvement in LFTs and Lipase levels. Was unable to do MRCP due to pacemaker. Once laboratories improved she underwent laparoscopic cholecystectomy on 02/17 without complication. Her lipase is WNL and LFTs remain mildly elevated but much improved. She has remained largely abdominal pain free considering illness. All home medications were continued as previously prescribed. She only has minimal incision abdominal pain and tolerating a regular diet. She is optimal for discharge home with outpatient follow-up. Total Time Spent: Greater than 30 minutes This includes examination of the patient, discharge planning, medication reconciliation, and communication with other providers. (Angela Pedro, PINA) Discharge Instructions Please refer to the electronic Patient Visit Report (Discharge Instructions) for additional information. (Angela Pedro PA-C) Additional Copies To Fco Vazquez M.D. Reviewed: Pt Seen/Exam by Me (Cindi Mayorga, ) History Pt is doing quite well post-op. No abd pain. Tolerating PO. Agree with HPI/ROS as noted. (Cindi Mayorga, ) General Appearance: WD/WN, no apparent distress Respiratory: normal breath sounds, no respiratory distress Cardiovascular: normal peripheral pulses, regular rate, rhythm Gastrointestinal: soft, tenderness (mild TTP, but minimal) Extremities: non-tender, no pedal edema Neurologic/Psychiatric: alert, normal mood/affect, oriented x 3 Skin Characteristics: normal color, warm/dry (Cindi Mayorga DO) Assessment/Plan Agree with plan as outlined above s/p lap joss GS pancreatitis (Cindi Mayorga DO)
== END 2017-02-18 12:26 | disposition home or self-care (01) | DRG 417 ==
LOC: C.EDB 13:51 → C.2T 18:06 → EDBEDREQ 18:08 → ENRESERV 18:11 → C.MSW 02-15 14:40
PROVIDERS: ADMIT Internal Medicine; ATTEND Hospitalist
PROC: 0FT44ZZ Resection of Gallbladder, Percutaneous Endoscopic Approach (ICD-10-PCS; principal; 2017-02-17 11:30)
PROC: BF101ZZ Fluoroscopy of Bile Ducts using Low Osmolar Contrast (ICD-10-PCS; principal; 2017-02-17 11:30)
DX: K81.0 Acute cholecystitis (principal); K85.10 Biliary acute pancreatitis without necrosis or infection; N17.9 Acute kidney failure, unspecified; I47.1 Supraventricular tachycardia; K82.8 Other specified diseases of gallbladder; K83.8 Other specified diseases of biliary tract; R74.0 Nonspecific elevation of levels of transaminase and lactic acid dehydrogenase [LDH]; I25.10 Atherosclerotic heart disease of native coronary artery without angina pectoris; I34.0 Nonrheumatic mitral (valve) insufficiency; I48.91 Unspecified atrial fibrillation; I12.9 Hypertensive chronic kidney disease with stage 1 through stage 4 chronic kidney disease, or unspecified chronic kidney disease; N18.9 Chronic kidney disease, unspecified; D69.6 Thrombocytopenia, unspecified; D64.9 Anemia, unspecified; E78.5 Hyperlipidemia, unspecified; E78.00 Pure hypercholesterolemia, unspecified; I73.9 Peripheral vascular disease, unspecified; M10.9 Gout, unspecified; M85.80 Other specified disorders of bone density and structure, unspecified site; I25.2 Old myocardial infarction; Z95.0 Presence of cardiac pacemaker; Z95.5 Presence of coronary angioplasty implant and graft; Z87.891 Personal history of nicotine dependence; Z79.82 Long term (current) use of aspirin; Z79.899 Other long term (current) drug therapy

== ENCOUNTER → 2017-04-20 | Outpatient (CLI) | payer BC ==
[~2017-04-20] MED LIST changes: -ASPEC325 PO; +ASPI325T45 PO; -HYDR-5688 PO; +OXYC-57 PO; -PRED1SUS3 OPR
[2017-04-20 11:16] LABS: HEMATOCRIT 40.5 % (37-47); MEAN CELL VOLUME 96.9 fL (80-100); MEAN CORPUSCULAR HEMOGLOBIN 30.4 pg (25-34); MEAN CORPUSCULAR HGB CONC 31.4 g/dl (32-36); MEAN PLATELET VOLUME 11.3 fL (7.4-10.4); PLATELET COUNT 125 K/uL (130-400); RED BLOOD COUNT 4.18 M/uL (4.2-5.4); WHITE BLOOD COUNT 6.76 K/uL (4.8-10.8)
[2017-04-20 11:46] LABS: BLOOD UREA NITROGEN 26 mg/dl (7-18); BUN/CREATININE RATIO 32.6 (10-20); CALCIUM 9.5 mg/dl (8.5-10.1); CARBON DIOXIDE 28 mmol/L (21-32); CHLORIDE 109 mmol/L (98-107); GLUCOSE 85 mg/dl (70-99); POTASSIUM 4.1 mmol/L (3.5-5.1); SODIUM 141 mmol/L (136-145)
[2017-04-20 11:50] LABS: PHOSPHORUS 3.3 mg/dl (2.5-4.9)
[2017-04-20 12:17] LABS: URINE APPEARANCE CLEAR (CLEAR); URINE BILIRUBIN NEG (NEG); URINE COLOR YELLOW; URINE EPITHELIAL CELL AUTO >30 /lpf (0-5); URINE NITRITE NEG (NEG); UROBILINOGEN NEG (NEG)
[2017-04-20 12:23] LABS: MANUAL MICROSCOPIC REQUIRED? NO; REVIEW REQ? NO
[2017-04-20 12:35] LABS: URINE PROTIEN/CREAT RATIO 0.4 (0-0.2); URINE TOTAL PROTEIN 23.5 mg/dl (0-11.9)
== END | disposition home or self-care (01) ==
LOC: C.LAB1850 10:21
PROVIDERS: ATTEND Internal Medicine Nephrology
DX: I12.9 Hypertensive chronic kidney disease with stage 1 through stage 4 chronic kidney disease, or unspecified chronic kidney disease (principal); R80.9 Proteinuria, unspecified; E55.9 Vitamin D deficiency, unspecified; N18.2 Chronic kidney disease, stage 2 (mild)

== ENCOUNTER → 2017-10-15 | Outpatient (CLI) | payer BC ==
[~2017-10-15] MED LIST changes: -ISOS30TA51 PO; +ISR/30 PO
--- NOTE | 2017-10-15 11:19 | DIAGNOSTIC IMAGING REPORT ---
CHEST 2 VIEWS ROUTINE CLINICAL HISTORY: 81 years-old Female presenting with J18.9 cough, congestion, fever. TECHNIQUE: PA and lateral views of the chest were obtained. COMPARISON: 02/13/2017. FINDINGS: Left subclavian pacer with leads to the right atrium and right ventricular apex. Atherosclerosis of aortic arch. Cardiac silhouette normal in size. Lungs and pleural spaces clear. Exaggerated thoracic kyphosis with mild degenerative change. Deformities of several right ribs indicate prior fracture though these are new since the prior exam. Cholecystectomy clips noted. IMPRESSION: 1. No acute cardiopulmonary disease. 2. Right rib fractures, which may be new since the prior exam. Electronically signed by: Aman Astorga M.D. 10/15/2017 11:18 AM Dictated Date/Time: 10/15/2017 11:16 AM
== END | disposition home or self-care (01) ==
LOC: C.LAB1850 11:02
PROVIDERS: ATTEND Family Medicine Adolescent Medicine
DX: J18.9 Pneumonia, unspecified organism (principal)

== ENCOUNTER → 2017-10-17 | Outpatient (CLI) | payer BC ==
--- NOTE | 2017-10-18 15:16 | MAMMOGRAPHY REPORT ---
BILATERAL DIGITAL SCREENING MAMMOGRAM TOMOSYNTHESIS WITH CAD: 10/17/2017 CLINICAL HISTORY: Routine screening. Patient has no complaints. TECHNIQUE: Breast tomosynthesis in addition to standard 2D mammography was performed. Current study was also evaluated with a Computer Aided Detection (CAD) system. COMPARISON: Comparison is made to exams dated: 10/13/2016 mammogram, 10/13/2015 mammogram, 10/11/2014 ma mmogram, 10/10/2013 mammogram, 10/09/2012 mammogram, and 10/06/2011 mammogram - [facility] nter. BREAST COMPOSITION: The tissue of both breasts is almost entirely fatty. FINDINGS: There are mild vascular calcifications in the breast. Benign coarse calcifications in the left breast. No suspicious mass, architectural distortion or cluster of suspicious microcalcificatio ns is seen. IMPRESSION: ACR BI-RADS CATEGORY 1: NEGATIVE There is no mammographic evidence of malignancy. A 1 year screening mammogram is recommended. The pa tient will receive written notification of the results. Approximately 10% of breast cancers are not detected with mammography. A negative mammographic report should not delay biopsy if a clinically suggestive mass is present. Lian Garcia M.D. ay/:10/17/2017 15:26:29 Timber Estimator: Karla BAÑUELOS(Charlene)(Kee)(BD), [facility] [address] letter sent: Normal 1/2 BI-RADS Code: ACR BI-RADS Category 1: Negative
== END | disposition home or self-care (01) ==
LOC: C.MAMM 11:03
PROVIDERS: ATTEND Obstetrics & Gynecology
DX: Z12.31 Encounter for screening mammogram for malignant neoplasm of breast (principal)

== ENCOUNTER → 2017-10-17 | Outpatient (CLI) | payer BC ==
[2017-10-17 13:18] LABS: HEMATOCRIT 37.3 % (37-47); HEMOGLOBIN 12.5 g/dL (12.0-16.0); MEAN CELL VOLUME 92.8 fL (80-100); MEAN CORPUSCULAR HEMOGLOBIN 31.1 pg (25-34); MEAN CORPUSCULAR HGB CONC 33.5 g/dl (32-36); MEAN PLATELET VOLUME 9.8 fL (7.4-10.4); PLATELET COUNT 250 K/uL (130-400); RED CELL DISTRIBUTION WIDTH CV 13.9 % (11.5-14.5); RED CELL DISTRIBUTION WIDTH SD 47.1 fL (36.4-46.3); WHITE BLOOD COUNT 12.41 K/uL (4.8-10.8)
[2017-10-17 13:52] LABS: ALBUMIN 2.6 gm/dl (3.4-5.0); BLOOD UREA NITROGEN 20 mg/dl (7-18); CALCIUM 9.3 mg/dl (8.5-10.1); CARBON DIOXIDE 29 mmol/L (21-32); CREATININE 1.17 mg/dl (0.60-1.20); GLUCOSE 95 mg/dl (70-99); POTASSIUM 3.4 mmol/L (3.5-5.1); SODIUM 130 mmol/L (136-145)
[2017-10-17 13:53] LABS: PHOSPHORUS 2.3 mg/dl (2.5-4.9)
== END | disposition home or self-care (01) ==
LOC: C.LAB1850 11:28
PROVIDERS: ATTEND Internal Medicine Nephrology
DX: I10 Essential (primary) hypertension (principal); R80.9 Proteinuria, unspecified; E55.9 Vitamin D deficiency, unspecified; N18.2 Chronic kidney disease, stage 2 (mild)

== ENCOUNTER → 2017-11-08 | Outpatient (CLI) | payer BC ==
[2017-11-08 15:10] LABS: BLOOD UREA NITROGEN 22 mg/dl (7-18); CALCIUM 9.1 mg/dl (8.5-10.1); CARBON DIOXIDE 29 mmol/L (21-32); CREATININE 0.84 mg/dl (0.60-1.20); GLUCOSE 73 mg/dl (70-99); PHOSPHORUS 2.9 mg/dl (2.5-4.9); POTASSIUM 4.3 mmol/L (3.5-5.1); SODIUM 138 mmol/L (136-145)
== END | disposition home or self-care (01) ==
LOC: C.LAB1850 13:26
PROVIDERS: ATTEND Internal Medicine Nephrology
DX: I12.9 Hypertensive chronic kidney disease with stage 1 through stage 4 chronic kidney disease, or unspecified chronic kidney disease (principal); R80.9 Proteinuria, unspecified; N18.2 Chronic kidney disease, stage 2 (mild); E55.9 Vitamin D deficiency, unspecified

== ENCOUNTER 2019-01-02 11:25 | Observation (INO) ==
[~2019-01-02 11:25] MED LIST changes: -ACET-1256 PO; -ALL300 PO; -ASPI325T45 PO; -CALC500C70 PO; +CLINDAMYCIN 600 MG/54 ML BAG IV SCH; -EZET10TA41 PO; -FURO-85 PO; -ISR/30 PO; +LR 15ML/HR IV SCH; -METO25TA56 PO; -NTRGSL/4 UT; -OXYC-57 PO
[2019-01-02] MEDS ORDERED: BACITRACIN INJ 50,000 UNIT VIAL ONE (12:50)
[2019-01-02] MEDS ORDERED: LIDOCAINE HCL 1% 20 ML VIAL ONE (12:50)
--- NOTE | 2019-01-02 13:02 | History & Physical Bridge Note ---
Date of Service January 02, 2019 History & Physical Bridge Note I have examined the patient, reviewed the History & Physical and in the interval since the performance of the History & Physical I have noted the following changes of clinical significance: no changes noted. Echocardiography shows a left ventricular ejection fraction of 40%, no indication for ICD. I reviewed the indications, procedure, risks and alternatives of pacemaker replacement and lead replacement with the patient and her son and they understand and she agrees to proceed. Consent obtained. I also discussed conscious sedation with her and she agrees. Consent obtained.
--- NOTE | 2019-01-02 13:03 | Pre Anesthesia Assessment ---
Date of Service January 02, 2019 Pre Sedation Assessment Vital Signs Temp Pulse Resp BP Pulse Ox 01/02/19 11:55 36.4 C L 65 20 150/80 H 97 Cardiovascular RRR, no murmur, no edema Respiratory normal respiratory effort, lungs clear to auscultation Pre-Sedation Airway Assessment Smoking Status: Former smoker Hx Sleep Apnea: No Hx Difficult Intubation: No Short, Thick Neck: No Thyromental Distance: > or= 3.5 Finger Breadths Mallampati Class: I ASA III NPO Status Date of Last Intake of Fluids: 01/01/19 Date of Last Intake of Solid Food: 01/01/19 Procedure Planning Contraindications for Sedation: none Current Medications Reviewed: Yes Notes The planned sedation has been discussed with the patient. Informed Consent was obtained. I have identified the patient, determined the appropriateness of sedation and have assessed the patient immediately prior to the procedure. All medicine(s) and interventions are by my order.
[2019-01-02] MEDS ORDERED: fentaNYL citrate 100 MCG/2 ML VIAL ONE (13:17)
[2019-01-02] MEDS ORDERED: MIDAZOLAM HCL 5 MG/ML 1 ML VIAL ONE (13:17)
[2019-01-02] MEDS ORDERED: BACITRACIN OINT 0.9 GM PKT ONE (14:48)
--- NOTE | 2019-01-02 15:04 | Operative Report ---
Post Operative Report Pre & Post Diagnosis Operation Date: 01/02/19 13:0 Preoperative diagnosis: Pacemaker KARRI, lead malfunction Postoperative diagnosis: Pacemaker KARRI, atrial lead malfunction Procedure Operation Date: 01/02/19 13:00 Actual Procedures Left subclavian venography p Pacer with Atrial Lead - Korey Coley MD Surgeon Korey Coley MD Grinder Chipper None Estimated Blood Loss 30 Findings Consistent with Post-Op Diagnosis Chronic atrial lead had very poor measurements, chronic ventricular lead was acceptable although not ideal. New atrial lead has acceptable measurements, a ventricular lead could not be readily placed. Specimens Old pacemaker: Return to [employer] Complications none Disposition Accompanied Patient To Recovery: No Disposition: PCU Description of Procedure After obtaining informed consent for the procedure, the patient was brought to the laboratory being NPO after midnight. After identification in the laboratory dye was injected the left arm IV site to opacify the left subclavian vein. The subclavian vein was identified and found to be free of obstruction. The patient was prepped and draped in the standard sterile manner for a left-sided device replacement. The left prepectoral region was anesthetized with 1% lidocaine local anesthetic and Left subclavian venipuncture was performed by percutaneous technique. A guidewire was placed through the left subclavian vein into the right atrium. The course of the vein was tortuous but free of obstruction, however a long sheath was used and there were several areas where it was difficult to cross into the right atrium. This was successful however and the dilator and guidewire were removed and a bipolar active fixation atrial lead was advanced into the right atrium. A guidewire was placed through the introducer and the introducer stripped away from lead and guidewire. Another introducer was placed over the guidewire into the left subclavian vein, however this guidewire could not be advanced properly into the right atrium due to the narrowing of the vein. Ultimately this was abandoned and on the atrial lead remained in place. Using a curved stylette the atrial lead was positioned in the region of the atrial appendage, however the thresholds were poor there. It was repositioned to position in the anterior right atrium where measurements were felt to be adequate and this screw was extended fixing lead in position. A 5 cm incision was made through the old implant scar and carried down to the pacemaker generator. The generator was dissected free of tissue and explanted. A bacitracin-soaked sponge (50,000 units in 50 cc normal saline solution) was pl aced in the pocket. The pacemaker was removed from the leads and connected to an external pacing system. Pacing and sensing characteristics were evaluated in the atrial lead as noted on the implant data sheet. A new pacemaker was attached to the new atrial and chronic ventricular leads and found to be functioning normally. The chronic atrial lead was capped. The bacitracin-soaked sponge was removed from the pocket, the pacemaker was placed in the pocket with the leads coiled beneath it. The incision was closed with a running double subcutaneous closure of 3-0 Vicryl absorbable suture followed by a running subcuticular skin closure of 4-0 Vicryl absorbable suture. I attest to the content of the Intraoperative Record and any orders documented therein. Any exceptions are noted below.
[2019-01-02] MEDS ORDERED: ACETAMINOPHEN 325 MG TAB PO PRN (15:31)
[2019-01-02] MEDS ORDERED: KETOROLAC TROMETHAMINE 10 MG TABLET PO PRN (15:31)
[2019-01-02] MEDS ORDERED: NITROGLYCERIN SL 0.4 MG/TAB TAB SL PRN (15:32)
[2019-01-02] MEDS ORDERED: ACETAMINOPHEN 500 MG TAB PO PRN (15:32)
--- NOTE | 2019-01-02 16:16 | Post Anesthesia Assessment ---
Date of Service January 02, 2019 Post Sedation Assessment Vital Signs Temp Pulse Resp BP Pulse Ox 01/02/19 16:00 36.5 C 67 16 133/80 96 01/02/19 15:45 36.5 C 60 16 134/79 95 01/02/19 15:30 71 18 122/78 93 01/02/19 15:20 36.5 C 60 18 123/74 01/02/19 11:55 36.4 C L 65 20 150/80 H 97 Recovery Score Activity: Moves 4 extremities Respiration: Deep Breath/Cough Circulation: +/-20% PreAnes Value Consciousness: Fully Awake Oxygen Saturation: > 92% On Room Air Discharge Sedation Level of Care: Fast Track Phase II Post Sedation Plan On clinical assessment, the patient appears to have tolerated the sedation without complications. Patient is recovering as anticipated. Patient will continue to be monitored by nursing and may be discharged when sedation discharge criteria are met per below protocol. Upon Completions of procedure and additional 15 minutes continue every 5 minute vital signs and the P.A.R. score; then discharge to a Phase I or Fast Track to Phase II per the following guidelines: * Discharge Patient to appropriate Phase II area if PAR is 8 or greater or return to pre- procedure baseline. The post - procedure orders will be as directed. * If PAR score is less than 8 or not return to pre-procedure baseline then patient will follow Phase I monitoring till PAR is reached for Phase II. The Phase I may be done in procedure room or may call to secure a Phase I area. * If naloxone or flumazenil are used for reversal, hold in Phase I for continued monitoring from when last reversal dose was given for a minimum of 60 minutes or longer pending the nurse and/or physician discretion of patient condition before discharge to Phase II. Please call the Sedation Physician to re-evaluate and complete post-note for discharge to Phase II area. Do NOT discharge from procedure sedation or Phase 1 until post- sedation evaluation note is complete by procedure /sedation MD Sedation Discharge Instructions to be given to the patient at discharge to home.
[2019-01-02] MEDS: METOPROLOL TARTRATE 25 MG TAB PO SCH (20:23)
[2019-01-02] MEDS ORDERED: EZETIMIBE/SIMVASTATIN 10/40MG 1 TAB TAB PO SCH (21:00)
--- NOTE | 2019-01-03 06:28 | XRay Report ---
XR chest 2V routine CLINICAL HISTORY: EXACT TIME ORDERED Evaluate for pneumothorax and l COMPARISON STUDY: 72,017 FINDINGS: Permanent bipolar cardiac pacemaker in good position. No evidence pneumothorax. Lungs are c onsidered clear. IMPRESSION: Permanent bipolar cardiac pacemaker in position with a good lead position. No evidence f or pneumothorax. The above report was generated using voice recognition software. It may contain grammatical, syntax or spelling errors. Electronically signed by: Terry Youssef M.D. 01/03/2019 6:26 AM
[2019-01-03] MEDS: METOPROLOL TARTRATE 25 MG TAB PO SCH (08:31)
--- NOTE | 2019-01-03 08:58 | Cardiology Progress Note ---
Date of Service January 03, 2019 Assessment & Plan (1) Postsurgical cardiac pacemaker in situ: She is doing well postop day #1. The lead is in good position on x-ray, there is no pneumothorax, measurements are good and her pacer is working well on telemetry. She is stable for discharge. Follow-up in 2 days. Subjective She is feeling well, no significant incisional discomfort, no palpitations or chest discomfort Physical Exam Physical Exam: The incision is clean and dry, there is no swelling or erythema. No significant ecchymosis. Results & Data Vital Signs (Past 12 Hours) Vital Signs Temp Pulse Pulse Resp BP Pulse Ox 01/03/19 06:57 36.5 C 60 17 120/69 93 01/03/19 04:00 36.4 C L 60 17 115/68 92 01/03/19 00:00 36.6 C 60 16 125/68 94 01/02/19 23:31 62 Diagnostic Findings Postop electrocardiogram: AV sequential pacing appropriately Telemetry: AV sequential pacing overnight Chest x-ray: Good lead position, no pneumothorax Pacemaker evaluation: Excellent pacing and sensing characteristics
[2019-01-03] MEDS ORDERED: CALCIUM 600MG + VIT D 400 IU TAB PO SCH (09:00)
[2019-01-03] MEDS ORDERED: ASPIRIN 325 MG ECTAB PO SCH (09:00)
[2019-01-03] MEDS ORDERED: ISOSORBIDE MONO EXTENDED REL 30 MG TABCR PO SCH (09:00)
[2019-01-03] MEDS ORDERED: ALLOPURINOL 300 MG TAB PO SCH (09:00)
--- NOTE | 2019-01-15 13:08 | Discharge Summary ---
Date of Service January 02, 2019 Admission HPI Per Admitting Provider This is an 83-year-old woman who had a pacemaker implanted June 16, 2000. That device was replaced most recently April 05, 2013. She has had a chronically elevated pacing threshold resulting in rapid battery depletion. Her ventricular threshold has continued to rise although is still with incapability the device, the atrial threshold could not be checked due to the device reaching KARRI recently but had been rising. She was therefore scheduled for device replacement with lead revision. Admission Exam (Per Admitting) Constitutional Constitutional: Alert, cooperative and in no distress. HEENT: Unremarkable Neck: No jugular venous distention, carotid pulses are normal and equal bilaterally without bruits. Pulmonary: Clear to auscultation bilaterally. Cardiac: Regular rhythm with no murmur, gallop or rub. Abdomen: Soft, nontender with normal bowel sounds. Extremities: No edema. Distal pulses intact. Neurologic: No focal findings. Gait is steady. Skin: The device site is well-healed without erythema, swelling or tenderness. No rash, ecchymoses or petechiae. Discharge Data Procedures Performed Operation Date: 01/02/19 13:00 Actual Procedures s Venogram, Unilateral(Not Applicable) - Korey Coley MD p Pacer Gen Change Dual(Not Applicable) - Korey Coley MD s Insertion Single Lead Only(Left) - Korey Coley MD Hospital Course (1) Postsurgical cardiac pacemaker in situ: She had her pacemaker replaced as well as the atrial lead, the chronic ventricular lead was used due to difficulty replacing both leads and the ve ntricular lead is acceptable atrial. The lead is in good position on x-ray, there is no pneumothorax, measurements are good and her pacer is working well on telemetry. She is stable for discharge. Follow-up in 2 days.
== END 2019-01-03 10:54 | disposition home or self-care (01) ==
LOC: 2S 11:25 → ASU 11:25

== ENCOUNTER 2021-05-19 15:08 | Inpatient (IN) ==
--- NOTE | 2021-05-19 15:13 | Emergency Department Note ---
Impression & Plan Closed intertrochanteric fracture of femur, Fall ED Provider Note NAME: ALEXIS MANLEY AGE: 85 SEX: F : 1935 ARRIVES VIA: Ambulance INFORMANT: Patient, ED PROVIDER(S): Aly Medina MD Chief Complaint: Fall, hip and head pain HPI: She does present after a ground-level fall at home. The patient was r eportedly trying to take her daughter's dog indoors at the time that they were indoors the dog ran back outside pulling her falling backward striking her head. The patient does complain of some mild posterior head pain as well as right hip pain. Patient denies any fevers chills chest pains or shortness of breath. The patient denies any back or abdominal pain. The patient did not take anything prior to arrival. The patient's pain is worse with palpation the patient was unable to ambulate thereafter. Patient denies any LOC. The patient is on Eliquis for history of A. fib. ROS: See HPI for pertinent positives and negatives. A total of 10 systems were reviewed and otherwise negative. Past medical history: See below Surgical history: See below Social history: See below Physical Exam: GENERAL: NAD, wearing glasses, wearing a mask, non-toxic. EYE EXAM: Normal conjunctiva. PERRL, no anisocoria and EOM's grossly intact w/o pain. NECK: Supple, no nuchal rigidity, no adenopathy, non-tender. No signs of meningismus. FROM of the neck with good chin to chest and neck extension. No s tridor. No midline C-spine TTP. Chest: No reproducible chest wall pain, pacemaker in place left upper chest. LUNGS: Clear to auscultation. Normal chest wall mechanics. HEART: NSR, no MRG. ABDOMEN: Abdomen soft, non-tender, normo-active bowel sounds, no masses, no rebound or guarding. BACK: No CVA TTP. No pain to palpation in thoracic or lumbar spine. SKIN: No rashes and no bruising. UPPER EXTREMITIES: Upper extremities are grossly normal. Small area of ecchymosis to the elbow. Good range of motion at the shoulder elbow and wrist. LOWER EXTREMITIES: Obvious deformity and pain to the right hip. No pain to palpation left lower extremity, decreased range of motion secondary to pain. Neurovascular intact distally bilateral lower extremities. NEURO EXAM: A&O x3, cranial nerves II-XII grossly intact, normal speech, moves all 4 extremities. Differential diagnoses: Fracture, subluxation, dislocation, contusion, ligamentous injury, neurovascular, compartment syndrome, rhabdomyolysis, as well as other pathologies. Course: Patient was seen and evaluated the bedside. Full history physical exam was performed. EKG interpreted by me Sinus with first-degree AV block, prolonged MN, rate of 64, T wave inversion in lead III and aVF. Imaging Studies: See Below Cardiac monitoring: An order was placed for continuous cardiac monitoring. The monitor shows a rate of 67 with sinus rhythm. MDM: Patient did present status post fall. The patient did have CT of the head and cervical spine completed along with right hip x-ray. The patient does have impacted and angulated right intertrochanteric fracture. The patient has good DP pulse and it is a closed injury. I did speak with Feliciano Barragan PA-C did review the x-rays. He did ask for a femur x-ray as well as a CT of the hip. I did speak the on-call hospitalist after the CTs were negative. Patient was admitted to Dr. Mitchell. 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 Chronic kidney disease, stage 3 Gout Hearing deficit bilateral History of pelvic mass Hyperlipidemia Hypertension Myocardial Infarction Pacemaker Vitamin D deficiency Surgical History History of cataract surgery History of cholecystectomy History of cochlear implant since removed History of heart artery stent History of herniorrhaphy right groin S/P trigger finger release Family History Family/Other Hearing loss Father Heart disease Mother Cancer type not documented on new patient form Other No family history of adverse response to anesthesia No family history of bleeding disorder Denies family history of Ovarian cancer Chronic kidney disease Breast cancer Colorectal cancer Social History Smoking Status: Former smoker Age Quit Using Tobacco: 63; packs per day: 0.5; Second Hand Exposure: Yes; Hx Alcohol Use: Yes Alcohol Intake Frequency: Monthly or Less Hx Substance Use: No Preferred Language: Sinhala Communication Ability: Effective 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 Required: No Beliefs That Will Affect Care: None Current Living Situation: Family Current Living Situation Comment: lives with 2 sons Feels Safe at Home: Yes Assistive Devices: None Allergies Allergies Allergy/AdvReac Type Severity Reaction Status Date / Time heparin Allergy Severe Thrombocytopenia; Verified 05/19/21 16:03 NEUTROPENIA Penicillins Allergy Intermediate Hives; Verified 05/19/21 16:03 SYNCOPE Home Meds Home Medications Medication Instructions Recorded Confirmed ezetimibe 10 mg-simvastatin 40 mg 1 tab PO PM #0 09/19/06 05/19/21 tablet (Vytorin) isosorbide dinitrate 30 mg tablet 30 mg PO QAM #0 09/19/06 05/19/21 nitroglycerin 0.4 mg sublingual 0.4 mg SUBLINGUAL UD PRN #0 btl 04/05/13 05/19/21 tablet (Nitrostat) allopurinol 300 mg tablet 300 mg PO QAM #90 02/13/17 05/19/21 aspirin 81 mg chewable tablet 81 mg PO DAILY 04/22/21 05/19/21 calcium carbonate 500 mg (1,250 1 tab PO DAILY 05/19/21 05/19/21 mg)-vitamin D3 400 unit tablet (Calcium 500 + D) furosemide 20 mg tablet 20 mg PO DAILY PRN 05/19/21 05/19/21 metoprolol tartrate 25 mg tablet 25 mg PO BID 05/19/21 05/19/21 Previous Rx's Medication Instructions Recorded apixaban 5 mg tablet 5 mg PO BID #180 tab 10/30/20 Results & Data (ED) Vital Signs Vital Signs - 24 hr 05/19/21 15:15 05/19/21 16:40 Temperature 36.9 C Temperature Source Oral Pulse Rate 88 Pulse Rate [Apical] 64 Pulse Rhythm Irregular Pulse Rhythm [Apical] Regular Pulse Strength Normal Pulse Strength [Apical] Normal Respiratory Rate 18 16 Respiratory Effort / Characteristics Non-Labored Spontaneous Non-Labored Spontaneous Respiratory Depth Normal Normal Respiratory Pattern Regular Regular Blood Pressure 185/87 H Blood Pressure [Right Arm] 158/87 H Blood Pressure Mean 119 Blood Pressure Mean [Right Arm] 110 Blood Pressure Position Lying Blood Pressure Position [Right Arm] Semi-fowlers Pulse Oximetry 99 96 Oxygen Delivery Method Room Air Room Air Sepsis Recent Fever Within 48 Hours No Sepsis New/Unexplained Change in Mental Status N/A Sepsis Action Taken by Nursing No Action Required Home Medications Current Medication List: was personally reviewed by me Laboratory Data Attestation: I reviewed the patient's lab results. Result diagrams: 05/19/21 15:30 05/19/21 15:30 Lab Results 05/19/21 05/19/21 05/19/21 Range/Units 15:30 15:30 15:30 WBC 8.20 (4.8-10.8) K/uL RBC 4.01 L (4.2-5.4) M/uL Hgb 12.4 (12.0-16.0) g/dL Hct 38.1 (37-47) % MCV 95.0 (80-100) fL MCH 30.9 (25-34) pg MCHC 32.5 (32-36) g/dL RDW Std Deviation 49.9 H (36.4-46.3) fL RDW Coeff of Debby 14.4 (11.5-14.5) % Plt Count 108 L (130-400) K/uL MPV 11.2 H (7.4-10.4) fL Immature Gran % (Auto) 0.4 % Neut % (Auto) 69.8 % Lymph % (Auto) 18.9 % [place] % (Auto) 8.9 % Eos % (Auto) 1.6 % Baso % (Auto) 0.4 % Neut # (Auto) 5.73 (1.4-6.5) K/uL Lymph # (Auto) 1.55 (1.2-3.4) K/uL [place] # (Auto) 0.73 H (0.11-0.59) K/uL Eos # (Auto) 0.13 (0-0.5) K/uL Baso # (Auto) 0.03 (0-0.2) K/uL Immature Gran # (Auto) 0.03 H (0.00-0.02) K/uL PT 10.8 (9.0-12.0) Seconds INR 1.1 (0.9-1.1) APTT 29.2 (21.0-31.0) Seconds PTT Ratio 1.1 Sodium 140 (136-145) mmol/L Potassium 3.9 (3.5-5.1) mmol/L Chloride 107 (98-107) mmol/L Carbon Dioxide 25 (21-32) mmol/L Anion Gap 8.0 (3-11) BUN 31 H (7-18) mg/dl Creatinine 1.10 (0.6-1.2) mg/dl Est Cr Clr Drug Dosing 34.6 ml/min Est GFR ( Amer) 53.4 ml/min Est GFR (Non-Af Amer) 46.1 ml/min BUN/Creatinine Ratio 28.1 H (10-20) Glucose 95 (70-99) mg/dl Calcium 9.5 (8.5-10.1) mg/dl Total Bilirubin 0.7 (0.2-1) mg/dl AST 26 (15-37) U/L ALT 19 (12-78) U/L Alkaline Phosphatase 75 (45-117) U/L Total Protein 7.8 (6.4-8.2) gm/dl Albumin 3.2 L (3.4-5.0) gm/dl Globulin 4.6 H (2.5-4.0) gm/dl Albumin/Globulin Ratio 0.7 L (0.9-2) COVID-19 Eval Order Blood Type Antibody Screen 05/19/21 05/19/21 Range/Units 15:38 16:38 WBC (4.8-10.8) K/uL RBC (4.2-5.4) M/uL Hgb (12.0-16.0) g/dL Hct (37-47) % MCV (80-100) fL MCH (25-34) pg MCHC (32-36) g/dL RDW Std Deviation (36.4-46.3) fL RDW Coeff of Debby (11.5-14.5) % Plt Count (130-400) K/uL MPV (7.4-10.4) fL Immature Gran % (Auto) % Neut % (Auto) % Lymph % (Auto) % [place] % (Auto) % Eos % (Auto) % Baso % (Auto) % Neut # (Auto) (1.4-6.5) K/uL Lymph # (Auto) (1.2-3.4) K/uL [place] # (Auto) (0.11-0.59) K/uL Eos # (Auto) (0-0.5) K/uL Baso # (Auto) (0-0.2) K/uL Immature Gran # (Auto) (0.00-0.02) K/uL PT (9.0-12.0) Seconds INR (0.9-1.1) APTT (21.0-31.0) Seconds PTT Ratio Sodium (136-145) mmol/L Potassium (3.5-5.1) mmol/L Chloride (98-107) mmol/L Carbon Dioxide (21-32) mmol/L Anion Gap (3-11) BUN (7-18) mg/dl Creatinine (0.6-1.2) mg/dl Est Cr Clr Drug Dosing ml/min Est GFR ( Amer) ml/min Est GFR (Non-Af Amer) ml/min BUN/Creatinine Ratio (10-20) Glucose (70-99) mg/dl Calcium (8.5-10.1) mg/dl Total Bilirubin (0.2-1) mg/dl AST (15-37) U/L ALT (12-78) U/L Alkaline Phosphatase (45-117) U/L Total Protein (6.4-8.2) gm/dl Albumin (3.4-5.0) gm/dl Globulin (2.5-4.0) gm/dl Albumin/Globulin Ratio (0.9-2) COVID-19 Eval Order Covid19 at [facility] Blood Type O Positive Antibody Screen NEGATIVE Administered Medications Sodium Chloride (Nss 1000ml) 1,000 mls @ 150 mls/hr IV .[id number] EDVIN Stop: 05/19/21 22:09 Last Admin: 05/19/21 16:23 Dose: 150 mls/hr Documented by: [id number] Morphine Sulfate (Morphine Sulfate 4 Mg/Ml 1 Ml Carp\Vial) 4 mg IV Q1H PRN PRN Reason: Severe Pain (Rating 7,8,9,10) Stop: 06/02/21 15:18 Last Admin: 05/19/21 16:22 Dose: 4 mg Documented by: [id number] Imaging Data Radiologist's Impression: Cervical Spine CT 05/19/21 15:20 CT cervical spine wo con INDICATION: MN ^CTR A3 ^fall on eliquis TECHNIQUE: Multidetector row helical CT of the cervical spine was performed without administration of intravenous contrast. Coronal and sagittal reformations were obtained. Automated dose lowering techniques and/or adjustment according to patient size were utilized for this exam. Comparison: None available at the time of this dictation. FINDINGS: No acute fractures or subluxations are identified. Degenerative changes are seen in the visualized spine. The prevertebral soft tissues are unremarkable. IMPRESSION: Severe degenerative changes with airspace disease and neural foraminal stenosis at multiple levels. No evidence of acute fracture. ACT 112: Negative or not required by law. Electronically signed by: Gee Zavala M.D. 05/19/2021 4:[address] 05/19/21 15:20 CT head/brain wo con Clinical Indication: MN ^fall on eliquis. Technique: Contiguous axial CT images of the head were acquired from the base of the skull to the vertex without intravenous contrast administration. Images were viewed in brain, subdural and bone windows. Automated dose lowering techniques and/or adjustment according to patient size were utilized for this exam. Comparison: None available at the time of this dictation. Findings: Areas of decreased attenuation are present in the periventricular and subcortical white matter bilaterally consistent with small vessel ischemic disease. Generalized cerebral atrophy with commensurate enlargement of the ventricles, sulci, and cisterns is also present. There is no acute intracranial hemorrhage or evidence of acute territorial infarction. No shift of the midline structures, mass effect, or extra-axial abnormalities are shown. Atheroscl erotic calcifications are present in the intracranial segments of the internal carotid arteries. Imaged portions of the paranasal sinuses and mastoid air cells are clear. The orbits appear normal. There are no acute fractures of the calvaria or scalp swelling. Impression: No acute intracranial hemorrhage, skull fractures, or scalp swelling. ACT 112: Negative or not required by law. Electronically signed by: Gee Zavala M.D. 05/19/2021 4:17 PM Hip/Pelvis X-Ray 05/19/21 15:20 XR hip RT 2V w pelvis HISTORY: 85 years-old Female pain post fall, obvious deformity vs d/l acute right hip pain status post fall COMPARISON: None TECHNIQUE: AP view of the pelvis with 2 views of the right hip FINDINGS: There is an acute comminuted intertrochanteric fracture of the right femur which demonstrates apex superior lateral angulation with mild impaction. Fracture fragments are displaced both medially and laterally. Moderate anterolateral soft tissue swelling. Demineralized appearance of the bones. Mild to moderate osteoarthritis of the hips. No additional acute fracture or dislocation. IMPRESSION: Acute comminuted, angulated, impacted and displaced intertrochanteric fracture of the right femur. ACT 112: Negative or not required by law. The above report was generated using voice recognition software. It may contain grammatical, syntax or spelling errors. Electronically signed by: Corby Gamez M.D. 05/19/2021 3:54 PM Discharge Plan Visit Data Chief Complaint: Fall Stated Complaint: FALL ED Provider: Aly Medina Discharge Problem: Closed intertrochanteric fracture of femur, Fall Patient Disposition: Admitted As Inpatient Forms Stand Alone Forms: [facility] Prescriptions Prescriptions: No Action isosorbide dinitrate 30 mg Tablet 30 mg PO QAM Qty: 0 RF: 0 ezetimibe-simvastatin [Vytorin 10-40] 10-40 mg Tablet 1 tab PO PM Qty: 0 RF: 0 nitroglycerin [Nitrostat] 0.4 mg Tablet, Sublingual 0.4 mg sublingual UD PRN (Reason: Chest Pain) Qty: 0 RF: 0 allopurinol 300 mg Tablet 300 mg PO QAM Qty: 90 RF: 0 apixaban 5 mg tablet 5 mg PO BID Qty: 180 RF: 3 aspirin 81 mg tablet,chewable 81 mg PO DAILY RF: 0 metoprolol tartrate 25 mg Tablet 25 mg PO BID RF: 0 furosemide 20 mg Tablet 20 mg PO DAILY PRN (Reason: swelling) RF: 0 calcium carbonate-vitamin D3 [Calcium 500 + D] 500 mg(1,250mg) -400 unit Tablet 1 tab PO DAILY RF: 0 Referrals Referrals: Fco Vazquez MD [Primary Care Provider] -
[2021-05-19] MEDS ORDERED: MoRPHine SULFATE 4 MG/ML 1 ML CARP\\VIAL IV PRN (15:19)
[2021-05-19] MEDS ORDERED: SODIUM CHLORIDE 0.9% 1000ML 1,000 ML IV SCH (15:30)
--- NOTE | 2021-05-19 15:55 | XRay Report ---
XR hip RT 2V w pelvis HISTORY: 85 years-old Female pain post fall, obvious deformity vs d/l acute right hip pain status po st fall COMPARISON: None TECHNIQUE: AP view of the pelvis with 2 views of the right hip FINDINGS: There is an acute comminuted intertrochanteric fracture of the right femur which demonstrates apex alvarez perior lateral angulation with mild impaction. Fracture fragments are displaced both medially and lat erally. Moderate anterolateral soft tissue swelling. Demineralized appearance of the bones. Mild to m oderate osteoarthritis of the hips. No additional acute fracture or dislocation. IMPRESSION: Acute comminuted, angulated, impacted and displaced intertrochanteric fracture of the rig ht femur. ACT 112: Negative or not required by law. The above report was generated using voice recognition software. It may contain grammatical, syntax o r spelling errors. Electronically signed by: Corby Gamez M.D. 05/19/2021 3:54 PM
[2021-05-19 16:02] LABS: Basophils # (auto) 0.03 K/uL (0-0.2); Basophils % (auto) 0.4 %; Eosinophils # (auto) 0.13 K/uL (0-0.5); Eosinophils % (auto) 1.6 %; Hematocrit (blood only) 38.1 % (37-47); Hemoglobin 12.4 g/dL (12.0-16.0); Immature Granulocytes # (auto) 0.03 K/uL (0.00-0.02); Immature Granulocytes % (auto) 0.4 %; Lymphocytes # (auto) 1.55 K/uL (1.2-3.4); Lymphocytes % (auto) 18.9 %; Mean Corpuscular Hemoglobin 30.9 pg (25-34); Mean Corpuscular Hgb Conc 32.5 g/dL (32-36); Mean Platelet Volume 11.2 fL (7.4-10.4); Monocytes # (auto) 0.73 K/uL (0.11-0.59); Monocytes % (auto) 8.9 %; Neutrophils # (auto) 5.73 K/uL (1.4-6.5); Neutrophils % (auto) 69.8 %; Platelet Count 108 K/uL (130-400); RDW Coefficient of Variation 14.4 % (11.5-14.5); RDW Standard Deviation 49.9 fL (36.4-46.3); Red Blood Count 4.01 M/uL (4.2-5.4)
--- NOTE | 2021-05-19 16:16 | CT Scan Report ---
CT cervical spine wo con INDICATION: MN ^CTR A3 ^fall on eliquis TECHNIQUE: Multidetector row helical CT of the cervical spine was performed without administration of intravenous contrast. Coronal and sagittal reformations were obtained. Automated dose lowering techn iques and/or adjustment according to patient size were utilized for this exam. Comparison: None available at the time of this dictation. FINDINGS: No acute fractures or subluxations are identified. Degenerative changes are seen in the visualized sp ine. The prevertebral soft tissues are unremarkable. IMPRESSION: Severe degenerative changes with airspace disease and neural foraminal stenosis at multiple levels. N o evidence of acute fracture. ACT 112: Negative or not required by law. Electronically signed by: Gee Zavala M.D. 05/19/2021 4:14 PM
--- NOTE | 2021-05-19 16:18 | CT Scan Report ---
CT head/brain wo con Clinical Indication: MN ^fall on eliquis. Technique: Contiguous axial CT images of the head were acquired from the base of the skull to the tray chloé without intravenous contrast administration. Images were viewed in brain, subdural and bone windo ws. Automated dose lowering techniques and/or adjustment according to patient size were utilized for this exam. Comparison: None available at the time of this dictation. Findings: Areas of decreased attenuation are present in the periventricular and subcortical white matter bilate rally consistent with small vessel ischemic disease. Generalized cerebral atrophy with commensurate e nlargement of the ventricles, sulci, and cisterns is also present. There is no acute intracranial hem orrhage or evidence of acute territorial infarction. No shift of the midline structures, mass effect, or extra-axial abnormalities are shown. Atherosclerotic calcifications are present in the intracran ial segments of the internal carotid arteries. Imaged portions of the paranasal sinuses and mastoid air cells are clear. The orbits appear normal. There are no acute fractures of the calvaria or scalp swelling. Impression: No acute intracranial hemorrhage, skull fractures, or scalp swelling. ACT 112: Negative or not required by law. Electronically signed by: Gee Zavala M.D. 05/19/2021 4:17 PM
[2021-05-19 16:20] LABS: INR 1.1 (0.9-1.1); Partial Thromboplastin Ratio 1.1; Partial Thromboplastin Time 29.2 Seconds (21.0-31.0); Prothrombin Time 10.8 Seconds (9.0-12.0)
[2021-05-19 16:21] LABS: Albumin Level 3.2 gm/dl (3.4-5.0); BUN Creatinine Ratio 28.1 (10-20); Creatinine Clr Calc Pharmacy 34.6 ml/min; Est GFR (African American) 53.4 ml/min; Est GFR (Non-African American) 46.1 ml/min; Potassium 3.9 mmol/L (3.5-5.1)
[2021-05-19 16:22] LABS: Calcium 9.5 mg/dl (8.5-10.1)
[2021-05-19 16:24] LABS: Albumin Globulin Ratio 0.7 (0.9-2); Bilirubin,Total 0.7 mg/dl (0.2-1); Globulin 4.6 gm/dl (2.5-4.0); Total Protein 7.8 gm/dl (6.4-8.2)
--- NOTE | 2021-05-19 17:18 | XRay Report ---
XR femur RT 2V routine INDICATION: MN ^per ortho TECHNIQUE: 2 radiographic views of the right femur were obtained. Comparison: Comparison is made to right hip radiograph 05/19/2021 FINDINGS: Redemonstration of comminuted, angulated, impacted intertrochanteric fracture of the right femur. The re is unchanged apex lateral angulation and mild overriding of the fragments. The visualized portion of the hip and knee joints are unremarkable. Mild degenerative changes of the hip and knee joints. IMPRESSION: Redemonstration of comminuted right femur intertrochanteric fracture. No fracture is seen in the dist al femur. ACT 112: Negative or not required by law. Electronically signed by: Gee Zavala M.D. 05/19/2021 5:17 PM
[2021-05-19] MEDS ORDERED: FAMOTIDINE 20MG IV PUSH 20 MG/5 ML SYR IV ONE (17:30)
[2021-05-19] MEDS ORDERED: FAMOTIDINE 20 MG in SYRINGE 3 ML IV SCH (17:30)
--- NOTE | 2021-05-19 17:32 | History & Physical Report ---
Date of Service May 19, 2021 Assessment & Plan (1) Closed intertrochanteric fracture of femur: Plan: Admit to medical telemetry N.p.o. after midnight Acetaminophen 650 mg p.o. every 6 hours as needed mild pain or fever Henderson 5/325, 1 p.o. every 6 hours as needed moderate pain Henderson 5/325, 2 p.o. every 6 hours as needed severe pain Dilaudid 0.25 mg IV every 3 hours as needed moderate pain Dilaudid 0.5 mg IV every 3 hours as needed severe pain Zofran 4 mg IV every 6 hours as needed Famotidine 20 mg IV every 12 hours Orthopedic surgery consulted by ED (2) Fall: Plan: Mechanical fall leading to right hip fracture (3) CAD (coronary artery disease): Plan: CAD/hypertension/ischemic cardiomyopathy/paroxysmal defibrillation- Admit to medical telemetry Hold aspirin and apixaban Continue isosorbide dinitrate and metoprolol tartrate (4) Hypertension: Plan: See above (5) Ischemic cardiomyopathy: Plan: See above (6) Paroxysmal atrial fibrillation: Plan: See above (7) Hyperlipidemia: Plan: Continue Vytorin (8) Gout: Plan: Continue allopurinol History of Present Illness Chief Complaint: The patient presents to the emergency department for assessment of severe right hip pain after a fall at home when she was taking her daughter's dog indoors and got caught off guard and twisted and fell Primary Care Provider: Fco Vazquez MD The patient is an 85-year-old female with a past medical history including chronic allergic rhinitis, and SNHL of both ears, vitamin D deficiency, CKD stage III, hypertension, hyperlipidemia, CAD, gout, CHF, cardiac pacemaker, right shoulder dislocation and pancreatitis. She presents emergency department with acute onset of right hip pain immediately after fall while at home as noted above. X-ray in the emergency department of the right hip shows an acute, comminuted, angulated, impacted and displaced right hip fracture. Allergies Allergy/AdvReac Type Severity Reaction Status Date / Time heparin Allergy Severe Thrombocytopenia; Verified 05/19/21 16:03 NEUTROPENIA Penicillins Allergy Intermediate Hives; Verified 05/19/21 16:03 SYNCOPE Home Medications Medication Instructions Recorded Confirmed Type ezetimibe 10 mg-simvastatin 40 mg 1 tab PO PM #0 09/19/06 05/19/21 History tablet (Vytorin) isosorbide dinitrate 30 mg tablet 30 mg PO QAM #0 09/19/06 05/19/21 History nitroglycerin 0.4 mg sublingual 0.4 mg SUBLINGUAL UD PRN #0 btl 04/05/13 05/19/21 History tablet (Nitrostat) allopurinol 300 mg tablet 300 mg PO QAM #90 02/13/17 05/19/21 History apixaban 5 mg tablet 5 mg PO BID #180 tab 10/30/20 05/19/21 Rx aspirin 81 mg chewable tablet 81 mg PO DAILY 04/22/21 05/19/21 History calcium carbonate 500 mg (1,250 1 tab PO DAILY 05/19/21 05/19/21 History mg)-vitamin D3 400 unit tablet (Calcium 500 + D) furosemide 20 mg tablet 20 mg PO DAILY PRN 05/19/21 05/19/21 History metoprolol tartrate 25 mg tablet 25 mg PO BID 05/19/21 05/19/21 History Past Med/Surg History Medical History (Updated 05/19/21 @ 17:32 by Devante Cha MD) CAD (coronary artery disease) 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 Treated adequately Chronic kidney disease, stage 3 Gout Hearing deficit bilateral History of pelvic mass Hyperlipidemia Hypertension Ischemic cardiomyopathy Myocardial Infarction Pacemaker Paroxysmal atrial fibrillation Vitamin D deficiency Surgical History History of cataract surgery History of cholecystectomy History of cochlear implant since removed History of heart artery stent History of herniorrhaphy right groin S/P trigger finger release Family History Family/Other Hearing loss Father Heart disease Mother Cancer type not documented on new patient form Other No family history of adverse response to anesthesia No family history of bleeding disorder Denies family history of Ovarian cancer Chronic kidney disease Breast cancer Colorectal cancer Social History Smoking Status: Former smoker Age Quit Using Tobacco: 63; packs per day: 0.5; Second Hand Exposure: Yes; Hx Alcohol Use: Yes Alcohol Intake Frequency: Monthly or Less Hx Substance Use: No Preferred Language: Greenlandic Communication Ability: Effective Audiovisual Production Specialist Required: No Beliefs That Will Affect Care: None Current Living Situation: Family Current Living Situation Comment: lives with 2 sons Feels Safe at Home: Yes Assistive Devices: None Review of Systems Review of Systems: The patient denies chest pain, palpitations, shortness of breath, dyspnea on exertion, cough, sore throat, fevers, chills, sweats, nausea, vomiting, diarrhea , constipation, abdominal pain, pelvic pain, blood in urine or stool, dysuria, urinary frequency or urgency, lightheadedness, dizziness, headache, memory loss, loss of consciousness, rash, abnormal bruising or bleeding, focal or generalized weakness, numbness or tingling in arms, generalized arthralgias or myalgias, back or neck pain, or night sweats. The review of systems is otherwise negative other than for that already noted above, and at least 10 systems have been reviewed. Physical Exam Physical Exam: The patient is awake, alert and oriented 3, well developed and well nourished, normocephalic and atraumatic, lying in bed and in mild to moderate acute distress due to right hip pain HEENT--PERRL, EOMI, mucous membranes and oropharynx normal Neck--supple. No JVD. No bruits. Thyroid normal, trachea midline, no adenopathy. Heart--normal S1 and S2. No murmurs, rubs or gallops. Lungs--clear bilaterally, no respiratory distress, no accessory muscle use. Abdomen--normal bowel sounds and soft. Nontender. Nondistended, no hernias or masses, no organomegaly. Extremities--no cyanosis or clubbing. No edema. Dermatologic--normal skin turgor, normal color, no abnormal lymph nodes, no rash. Neurologic--cranial nerves II through XII grossly intact. Rheumatologic--limited exam due to hip pain Psychiatric--normal affect. Results & Data Results & Data ([facility]) Vital Signs (Past 12 Hours) Vital Signs Temp Pulse Pulse Resp BP BP Pulse Ox 05/19/21 16:40 64 16 158/87 H 96 05/19/21 15:15 98.4 F 88 18 185/87 H 99 Laboratory Results Laboratory Results WBC 8.20 K/uL (4.8-10.8) 05/19/21 15:30 RBC 4.01 M/uL (4.2-5.4) L 05/19/21 15:30 Hgb 12.4 g/dL (12.0-16.0) 05/19/21 15:30 Hct 38.1 % (37-47) 05/19/21 15:30 MCV 95.0 fL (80-100) 05/19/21 15:30 MCH 30.9 pg (25-34) 05/19/21 15:30 MCHC 32.5 g/dL (32-36) 05/19/21 15:30 RDW Std Deviation 49.9 fL (36.4-46.3) H 05/19/21 15:30 RDW Coeff of Debby 14.4 % (11.5-14.5) 05/19/21 15:30 Plt Count 108 K/uL (130-400) L 05/19/21 15: MPV 11.2 fL (7.4-10.4) H 05/19/21 15:30 Immature Gran % (Auto) 0.4 % 05/19/21 15:30 Neut % (Auto) 69.8 % 05/19/21 15:30 Lymph % (Auto) 18.9 % 05/19/21 15:30 Gibson % (Auto) 8.9 % 05/19/21 15:30 Eos % (Auto) 1.6 % 05/19/21 15:30 Baso % (Auto) 0.4 % 05/19/21 15:30 Neut # (Auto) 5.73 K/uL (1.4-6.5) 05/19/21 15:30 Lymph # (Auto) 1.55 K/uL (1.2-3.4) 05/19/21 15:30 Gibson # (Auto) 0.73 K/uL (0.11-0.59) H 05/19/21 15:30 Eos # (Auto) 0.13 K/uL (0-0.5) 05/19/21 15:30 Baso # (Auto) 0.03 K/uL (0-0.2) 05/19/21 15:30 Immature Gran # (Auto) 0.03 K/uL (0.00-0.02) H 05/19/21 15:30 PT 10.8 Seconds (9.0-12.0) 05/19/21 15:30 INR 1.1 (0.9-1.1) 05/19/21 15:30 APTT 29.2 Seconds (21.0-31.0) 05/19/21 15:30 PTT Ratio 1.1 05/19/21 15:30 Sodium 140 mmol/L (136-145) 05/19/21 15:30 Potassium 3.9 mmol/L (3.5-5.1) 05/19/21 15:30 Chloride 107 mmol/L (98-107) 05/19/21 15:30 Carbon Dioxide 25 mmol/L (21-32) 05/19/21 15:30 Anion Gap 8.0 (3-11) 05/19/21 15:30 BUN 31 mg/dl (7-18) H 05/19/21 15:30 Creatinine 1.10 mg/dl (0.6-1.2) 05/19/21 15:30 Est Cr Clr Drug Dosing 34.6 ml/min 05/19/21 15:30 Est GFR ( Amer) 53.4 ml/min 05/19/21 15:30 Est GFR (Non-Af Amer) 46.1 ml/min 05/19/21 15:30 BUN/Creatinine Ratio 28.1 (10-20) H 05/19/21 15:30 Glucose 95 mg/dl (70-99) 05/19/21 15:30 Calcium 9.5 mg/dl (8.5-10.1) 05/19/21 15:30 Total Bilirubin 0.7 mg/dl (0.2-1) 05/19/21 15:30 AST 26 U/L (15-37) 05/19/21 15:30 ALT 19 U/L (12-78) 05/19/21 15:30 Alkaline Phosphatase 75 U/L (45-117) 05/19/21 15:30 Total Protein 7.8 gm/dl (6.4-8.2) 05/19/21 15:30 Albumin 3.2 gm/dl (3.4-5.0) L 05/19/21 15:30 Globulin 4.6 gm/dl (2.5-4.0) H 05/19/21 15:30 Albumin/Globulin Ratio 0.7 (0.9-2) L 05/19/21 15:30 COVID-19 Eval Order Covid19 at [facility] 05/19/21 16:38 Blood Type O Positive 05/19/21 15:38 Antibody Screen NEGATIVE 05/19/21 15:[address] 05/19/21 15:20 CT cervical spine wo con INDICATION: MN ^CTR A3 ^fall on eliquis TECHNIQUE: Multidetector row helical CT of the cervical spine was performed without administration of intravenous contrast. Coronal and sagittal reformations were obtained. Automated dose lowering techniques and/or adjustment according to patient size were utilized for this exam. Comparison: None available at the time of this dictation. FINDINGS: No acute fractures or subluxations are identified. Degenerative changes are seen in the visualized spine. The prevertebral soft tissues are unremarkable. IMPRESSION: Severe degenerative changes with airspace disease and neural foraminal stenosis at multiple levels. No evidence of acute fracture. ACT 112: Negative or not required by law. Electronically signed by: Gee Zavala M.D. 05/19/2021 4:[address] 05/19/21 15:20 CT head/brain wo con Clinical Indication: MN ^fall on eliquis. Technique: Contiguous axial CT images of the head were acquired from the base of the skull to the vertex without intravenous contrast administration. Images were viewed in brain, subdural and bone windows. Automated dose lowering techniques and/or adjustment according to patient size were utilized for this exam. Comparison: None available at the time of this dictation. Findings: Areas of decreased attenuation are present in the periventricular and subcortical white matter bilaterally consistent with small vessel ischemic disease. Generalized cerebral atrophy with commensurate enlargement of the ventricles, sulci, and cisterns is also present. There is no acute intracranial hemorrhage or evidence of acute territorial infarction. No shift of the midline structures, mass effect, or extra-axial abnormalities are shown. Atherosclerotic calcifications are present in the intracranial segments of the internal carotid arteries. Imaged portions of the paranasal sinuses and mastoid air cells are clear. The orbits appear normal. There are no acute fractures of the calvaria or scalp swelling. Impression: No acute intracranial hemorrhage, skull fractures, or scalp swelling. ACT 112: Negative or not required by law. Electronically signed by: Gee Zavala M.D. 05/19/2021 4:17 PM Hip/Pelvis X-Ray 05/19/21 15:20 XR hip RT 2V w pelvis HISTORY: 85 years-old Female pain post fall, obvious deformity vs d/l acute right hip pain status post fall COMPARISON: None TECHNIQUE: AP view of the pelvis with 2 views of the right hip FINDINGS: There is an acute comminuted intertrochanteric fracture of the right femur which demonstrates apex superior lateral angulation with mild impaction. Fracture fragments are displaced both medially and laterally. Moderate anterolateral soft tissue swelling. Demineralized appearance of the bones. Mild to moderate osteoarthritis of the hips. No additional acute fracture or dislocation. IMPRESSION: Acute comminuted, angulated, impacted and displaced intertrochanteric fracture of the right femur. ACT 112: Negative or not required by law. The above report was generated using voice recognition software. It may contain grammatical, syntax or spelling errors. Electronically signed by: Corby Gamez M.D. 05/19/2021 3:54 PM Femur X-Ray 05/19/21 16:37 XR femur RT 2V routine INDICATION: MN ^per ortho TECHNIQUE: 2 radiographic views of the right femur were obtained. Comparison: Comparison is made to right hip radiograph 05/19/2021 FINDINGS: Redemonstration of comminuted, angulated, impacted intertrochanteric fracture of the right femur. There is unchanged apex lateral angulation and mild overriding of the fragments. The visualized portion of the hip and knee joints are unremarkable. Mild degenerative changes of the hip and knee joints. IMPRESSION: Redemonstration of comminuted right femur intertrochanteric fracture. No fracture is seen in the distal femur. ACT 112: Negative or not required by law. Electronically signed by: Gee Zavala M.D. 05/19/2021 5:17 PM Code Status & VTE Plan VTE Prophylaxis Plan VTE Prophylaxis will be ordered: Yes PG Care Time/CCT Total # of Minutes Spent Total Time Spent with Patient: Total time spent is greater than 50% in coordination of care (as documented) at patient's floor/unit and/or counseling patient: Coding Level of Care Code 49557 Initial Inpt Care Lvl 3 Diagnoses Closed intertrochanteric fracture of femur S72.141A Encounter type: initial encounter Fracture alignment: displaced Laterality: right Fall W19.XXXA Encounter type: initial encounter Hypertension I10 CAD (coronary artery disease) I25.10 Ischemic cardiomyopathy I25.5 Paroxysmal atrial fibrillation I48.0 Hyperlipidemia E78.5 Gout M10.9 (1) Closed intertrochanteric fracture of femur Encounter type: initial encounter Fracture alignment: displaced Laterality: right Qualified Code(s): S72.141A - Displaced intertrochanteric fracture of right femur, initial encounter for closed fracture (2) Fall Encounter type: initial encounter Qualified Code(s): W19.XXXA - Unspecified fall, initial encounter
--- NOTE | 2021-05-19 17:38 | CT Scan Report ---
CT hip RT wo con INDICATION: MN ^operative purposes for frx TECHNIQUE: Multidetector row helical CT of the right hip was performed without intravenous contrast. Coronal and sagittal reformations were obtained. Automated dose lowering techniques and/or adjustment according to patient size were utilized for this examination. Comparison: Comparison is made to femur radiograph 05/19/2021 FINDINGS: There is a comminuted intratrochanteric fracture of the right hip with apex lateral angulation. No enedina int effusion is seen. The joint spaces are maintained. Soft tissue swelling is seen about the hip fr acture. Incidental note is made of a large amount of stool in the rectum. IMPRESSION: Redemonstration of comminuted right intratrochanteric fracture. ACT 112: Negative or not required by law. Electronically signed by: Gee Zavala M.D. 05/19/2021 5:37 PM
[2021-05-19 19:15] LABS: Appearance Urine Clear (Clear); Bacteria Urine Automated Negative (Negative); Bilirubin Urine Negative (Negative); Blood Urine Negative (Negative); Color Urine Yellow; Glucose Urine UA Negative (Negative); Ketones Urine Trace (Negative); Leukocyte Esterase Urine Negative (Negative); Nitrite Urine Negative (Negative); Protein Urine 1+ (Negative); RBC Urine Automated 0-4 /hpf (0-4); Specific Gravity Urine 1.016 (1.000-1.030); Urobilinogen Urine Negative (Negative)
[2021-05-19] MEDS ORDERED: FAMOTIDINE 20MG/5ML IV PUSH IV ONE (20:11)
[2021-05-19] MEDS ORDERED: KETOROLAC TROMETHAMINE 15 MG/ML VIAL IV ONE (20:47)
[2021-05-19] MEDS: ACETAMINOPHEN 500 MG TAB PO SCH (21:47)
[2021-05-19] MEDS ORDERED: bisacodyL 10 MG SUPP PR PRN (22:26)
[2021-05-19] MEDS ORDERED: HYDROmorphone INJ 0.5 MG/0.5 ML SYR IV PRN ×2 (22:26)
[2021-05-19] MEDS ORDERED: MAGNESIUM HYDROXIDE SUSP 30 ML UDC PO PRN (22:26)
[2021-05-19] MEDS ORDERED: NALOXONE HCL 0.4 MG/1 ML VIAL/CARP IV PRN (22:26)
[2021-05-19] MEDS ORDERED: NITROGLYCERIN SL 0.4 MG/TAB TAB SL PRN (22:26)
[2021-05-19] MEDS ORDERED: ONDANSETRON INJ 2 MG/ML 2 ML VIAL IV PRN (22:26)
[2021-05-19] MEDS: LACTATED RINGER'S 1,000 ML IV SCH (23:58)
[2021-05-20] MEDS: DOCUSATE SODIUM/SENNA 50/8.6MG TAB PO SCH ×2 (00:02→20:10)
[2021-05-20] MEDS: METOPROLOL TARTRATE 25 MG TAB PO SCH ×3 (00:02→19:56)
[2021-05-20] MEDS: EZETIMIBE/SIMVASTATIN 10/40MG 1 TAB TAB PO SCH ×2 (00:03→20:11)
[2021-05-20] MEDS: ACETAMINOPHEN 500 MG TAB PO SCH ×3 (06:13→20:15)
[2021-05-20 07:08] LABS: Hemoglobin 10.7 g/dL (12.0-16.0); Mean Corpuscular Hemoglobin 30.4 pg (25-34); Mean Corpuscular Hgb Conc 31.5 g/dL (32-36); Mean Corpuscular Volume 96.6 fL (80-100); RDW Coefficient of Variation 14.4 % (11.5-14.5); RDW Standard Deviation 51.3 fL (36.4-46.3); Red Blood Count 3.52 M/uL (4.2-5.4); White Blood Count 8.95 K/uL (4.8-10.8)
[2021-05-20 07:31] LABS: Mean Platelet Volume 11.1 fL (7.4-10.4); Platelet Count 88 K/uL (130-400)
[2021-05-20 07:32] LABS: Basophils # (auto) 0.03 K/uL (0-0.2); Basophils % (auto) 0.3 %; Eosinophils % (auto) 1.1 %; Immature Granulocytes # (auto) 0.03 K/uL (0.00-0.02); Immature Granulocytes % (auto) 0.3 %; Lymphocytes # (auto) 1.41 K/uL (1.2-3.4); Lymphocytes % (auto) 15.8 %; Monocytes % (auto) 12.3 %; Neutrophils # (auto) 6.28 K/uL (1.4-6.5); Neutrophils % (auto) 70.2 %; Platelet Estimate Decreased (Normal)
[2021-05-20 07:54] LABS: Albumin Globulin Ratio 0.7 (0.9-2); Albumin Level 2.5 gm/dl (3.4-5.0); BUN Creatinine Ratio 29.8 (10-20); Bilirubin,Total 0.8 mg/dl (0.2-1); Est GFR (African American) 55.2 ml/min; Est GFR (Non-African American) 47.6 ml/min; Globulin 3.8 gm/dl (2.5-4.0); Magnesium 1.8 mg/dl (1.8-2.4); Potassium 4.4 mmol/L (3.5-5.1); Total Protein 6.3 gm/dl (6.4-8.2)
[2021-05-20] MEDS ORDERED: Influenza Vaccine-High Dose (Fluzone-HD) PF 65+ 0.7 ML SYR IM ONE (08:00)
[2021-05-20] MEDS: FAMOTIDINE 20MG IV PUSH 20 MG/5 ML SYR IV SCH ×2 (08:22→20:14)
[2021-05-20] MEDS: allopurinoL 300 MG TAB PO SCH (08:22)
[2021-05-20] MEDS: ISOSORBIDE MONO EXTENDED REL 30 MG TABCR PO SCH (08:23)
[2021-05-20] MEDS: CALCIUM 600MG + VIT D 400 IU TAB PO SCH (08:23)
--- NOTE | 2021-05-20 11:19 | Anesthesiology Consultation ---
Date of Service May 20, 2021 Assessment & Plan (1) Encounter for pre-operative examination: TTE December 2018 "noted mild left ventricular dysfunction with an ejection fraction of 40% with an apical aneurysm" History Surgery Operation Date: 05/20/21 10:00 Proposed Procedures p Right Troch Nail Mid or Long - Yg Olguin MD Operation Date: 05/20/21 10:00 Proposed Procedures p Right Hip Fracture Long Tronch Nail - Aman Dahl MD Height/Weight Height: 5 ft 2 in Weight: 70.4 kg Allergies Allergy/AdvReac Type Severity Reaction Status Date / Time heparin Allergy Severe Thrombocytopenia; Verified 05/19/21 16:03 NEUTROPENIA Penicillins Allergy Intermediate Hives; Verified 05/19/21 16:03 SYNCOPE Medications Home Medications Medication Instructions Recorded Confirmed Last Taken ezetimibe 10 mg-simvastatin 40 mg 1 tab PO PM #0 09/19/06 05/19/21 05/19/21 tablet (Vytorin) nitroglycerin 0.4 mg sublingual 0.4 mg SUBLINGUAL UD PRN #0 btl 04/05/13 05/19/21 Unknown tablet (Nitrostat) allopurinol 300 mg tablet 300 mg PO QAM #90 02/13/17 05/19/21 05/19/21 apixaban 5 mg tablet 5 mg PO BID #180 tab 10/30/20 05/19/21 05/19/21 aspirin 81 mg chewable tablet 81 mg PO DAILY 04/22/21 05/19/21 05/19/21 calcium carbonate 500 mg (1,250 1 tab PO DAILY 05/19/21 05/19/21 05/19/21 mg)-vitamin D3 400 unit tablet (Calcium 500 + D) furosemide 20 mg tablet 20 mg PO DAILY PRN 05/19/21 05/19/21 Unknown isosorbide mononitrate 30 mg 30 mg PO DAILY 05/19/21 05/19/21 Unknown tablet,extended release 24 hr metoprolol tartrate 25 mg tablet 25 mg PO BID 05/19/21 05/19/21 05/19/21 Active Medications Generic Name Dose Route Start Last Admin Trade Name Freq PRN Reason Stop Dose Admin Acetaminophen 1,000 mg 05/19/21 20:47 05/20/21 06:13 Acetaminophen 500 Mg Tab PO 06/18/21 20:46 1,000 mg Q8H EDVIN Administration Allopurinol 300 mg 05/20/21 09:00 05/20/21 08:22 Allopurinol 300 Mg Tab PO 06/19/21 08:59 300 mg QAM EDVIN Administration Ezetimibe/Simvastatin 1 tab 05/19/21 22:26 05/20/21 00:03 Ezetimibe/Simvastatin 10/40mg 1 Tab Tab PO 06/18/21 22:25 1 tab PM EDVIN Administration Famotidine 20 mg in 5 mls @ 2.5 mls/min 05/20/21 08:00 05/20/21 08:22 Pepcid 20mg Iv Push IV 06/19/21 07:59 2.5 mls/min Q12H EDVIN Administration Lactated Ringer's 1,000 mls @ 80 mls/hr 05/19/21 22:26 05/19/21 23:58 Lr IV 06/18/21 22:25 80 mls/hr .[id number] EDVIN Administration Isosorbide Mononitrate 30 mg 05/20/21 09:00 05/20/21 08:23 Isosorbide [place] Extended Rel 30 Mg Tabcr PO 06/19/21 08:59 30 mg QAM EDVIN Administration Metoprolol Tartrate 25 mg 05/19/21 22:26 05/20/21 08:22 Metoprolol Tartrate 25 Mg Tab PO 06/18/21 22:25 25 mg BID EDVIN Administration Multivitamins/Minerals 1 tab 05/20/21 09:00 05/20/21 08:23 Calcium 600mg + Vit D 400 Iu Tab PO 06/19/21 08:59 1 tab DAILY EDVIN Administration Senna/Docusate Sodium 2 tab 05/19/21 22:26 05/20/21 00:02 Docusate Sodium/Senna 50/8.6mg Tab PO 06/18/21 22:25 2 tab HS EDVIN Administration NPO Date Last Intake of Fluids: 05/20/21 Time Last Intake of Fluids: 00:00 Date Last Intake of Solids: 05/19/21 Past Medical History Medical History CAD (coronary artery disease) 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 Treated adequately Chronic kidney disease, stage 3 Gout Hearing deficit bilateral History of pelvic mass Hyperlipidemia Hypertension Ischemic cardiomyopathy Myocardial Infarction Pacemaker Paroxysmal atrial fibrillation Vitamin D deficiency Past Family History Family History Family/Other Hearing loss Father Heart disease Mother Cancer type not documented on new patient form Other No family history of adverse response to anesthesia No family history of bleeding disorder Denies family history of Ovarian cancer Chronic kidney disease Breast cancer Colorectal cancer Past Surgical History Surgical History History of cataract surgery History of cholecystectomy History of cochlear implant since removed History of heart artery stent History of herniorrhaphy right groin S/P trigger finger release Social History Smoking Status: Former smoker Hx Alcohol Use: Yes alcohol intake frequency: holidays/special occasions only Hx Substance Use: No Physical Exam Vital Signs Last Vital Signs Temp 97.9 F 05/20/21 07:19 Pulse 64 05/20/21 07:26 Resp 18 05/20/21 07:19 BP 112/69 05/20/21 07:19 Pulse Ox 94 05/20/21 07:19 Testing Laboratory Results 05/20/21 06:25 05/20/21 06:25 PT 10.8 Seconds (9.0-12.0) 05/19/21 15:30 INR 1.1 (0.9-1.1) 05/19/21 15:30 APTT 29.2 Seconds (21.0-31.0) 05/19/21 15:30 Urine Color Yellow 05/19/21 18:11 Urine Appearance Clear (Clear) 05/19/21 18:11 Urine pH 5.0 (4.5-7.5) 05/19/21 18:11 Ur Specific Fowler 1.016 (1.000-1.030) 05/19/21 18:11 Urine Protein 1+ (Negative) H 05/19/21 18:11 Urine Glucose (UA) Negative (Negative) 05/19/21 18:11 Urine Ketones Trace (Negative) H 05/19/21 18:11 Urine Nitrite Negative (Negative) 05/19/21 18:11 Ur Leukocyte Esterase Negative (Negative) 05/19/21 18:11 Urine WBC (Auto) 1-5 /hpf (0-5) 05/19/21 18:11 Urine RBC (Auto) 0-4 /hpf (0-4) 05/19/21 18:11 U Hyaline Cast (Auto) 1-5 /lpf (0-5) 05/19/21 18:11 U Epithel Cells (Auto) 5-10 /lpf (0-5) H 05/19/21 18:11 Urine Bacteria (Auto) Negative (Negative) 05/19/21 18:11 Blood Type O Positive 05/19/21 15:38 Antibody Screen NEGATIVE 05/19/21 15:38 Laboratory Tests 05/19/21 16:38 SARS-CoV-2 (PCR) NEGATIVE Electrocardiogram Date: 05/19/21 Sinus rhythm with 1st degree A-V block, rate 64 bpm Left axis deviation Low voltage QRS Inferior infarct , age undetermined Possible Anterolateral infarct (cited on or before 15-FEB-2020) Abnormal ECG When compared with ECG of 15-FEB-2020 17:12, Significant changes have occurred
[2021-05-20] MEDS: LACTATED RINGER'S 1,000 ML IV SCH (11:29)
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
--- NOTE | 2021-05-20 11:33 | Consultation Report ---
ADDENDUM TO ORTHOPEDIC CONSULTATION DATE OF SERVICE: 05/20/2021 She has a past surgical history of cardiac stent, pacemaker, hernia repair and gallbladder removal. She denies having MRSA or problem with bleeding, blood clots or metal allergy. Job ID: [id number]
--- NOTE | 2021-05-20 11:38 | Hospitalist Progress Note ---
Date of Service May 20, 2021 Assessment & Plan (1) Closed intertrochanteric fracture of femur: Plan: Barb Mata is an 85yo female with PMHx of CAD, ischemic cardiomyopathy, s/p PPM, paroxysmal a-fib (on Eliquis), CKDIII, HTN, HLD, gout and bilateral SNHL who was admitted to [facility] on 05/19 due to right closed/displced intertrochanteric femoral fracture s/p mechanical fall. Right Closed/Displaced Intertrochanteric Femoral Fracture S/p mechanical fall, confirmed via XR. - Orthopedic Surgery consulted - plan for surgery today - NPO since midnight for surgery - continue PRN graduated pain regimen with Tylenol/[place]/Dilaudid - continue Vitamin D/Calcium supplement - consider outpatient DEXA (per PCP) Paroxysmal Atrial Fibrillation Patient is paced in the 60s. Last Eliquis dose was >36 hours ago (early AM on 05/19). - continue to hold Eliquis, re-start 1-2 days after surgery (will follow Ortho recs regarding this) - continue home Lopressor CAD/HTN/Ischemic Cardiomyopathy - continue to hold Aspirin (last dose on 05/19 in the AM) - continue home Imdur - ordered TTE to assist with surgical risk stratification, although patient is euvolemic on exam and is hemodynamically stable on room air HLD - continue home Ezetimibe/Simvastatin Gout - continue home Allopurinol FEN/GI: NPO for surgery today, LR @80cc/hr DVT Prophylaxis: SCDs, chemoppx contraindicated due to surgery Code Status: full code Disposition: med/surg with tele (2) Fall: (3) Ischemic cardiomyopathy: (4) CAD (coronary artery disease): (5) Paroxysmal atrial fibrillation: (6) Chronic kidney disease, stage 3: (7) Hypertension: (8) Postsurgical cardiac pacemaker in situ: (9) Gout: (10) Hyperlipidemia: (11) Sensorineural hearing loss (SNHL) of both ears: (12) Vitamin D deficiency: Admission and Anticipated Discharge Date Admission Date: May 19, 2021 Supervising Physician Co-Signing Physician Notes Attending attestation Pt seen and examined in concert with Dr. Andrews. In agreement with the documented findings as noted in the resident documentation with any exceptions or additions as noted here. Pain well controlled on present regimen at rest. Previous shoulder repair by Dr. Finney, so would like to consult w/ [facility] ortho requiring consult change from admission c/s. No reported h/o exercise intolerance and able to tolerate 4 MET at baseline without symptoms. On examination, S1/S2 nl RRR no MCG. CTAB. Abd NT/ND BS+ve. b/l LE pulses 2+, sensation intact R closed, displaced intertrochanteric femoral fx - ortho consult - OR today. Pain control as noted. Last DEXA 3+ years ago per patient without significant pathology, obtain record, repeat as outpatient if this is the case. pAF - holding AC since evening dose on 05.19.21, continue metoprolol HTN w/ h/o CAD, ICM - holding ASA, continue imdur. Follow up echocardiogram. Continue statin therapy. CKDIII - trend BMP, avoid nephrotoxic interventions where able, gentle hydration. Else see resident documentation as noted. Subjective No acute events overnight. Pain controlled since receiving Morphine 4mg x1 and Toradol 10 x1 in the ED. Patient confirms that last dose of Eliquis and Aspirin was on 05/19 at ~12:30am (>36 hours ago). Denies fever/chills, chest pain, palpitations, SOB, cough, N/V, abdominal pain, rash. Review of Systems Review of Systems: All systems reviewed & are unremarkable except as noted in HPI & below Physical Exam Physical Exam: General: A&Ox3. NAD. Cooperative. HEENT: Atraumatic, normocephalic. Pulm: CTAB A&P. -wheezes, -rales, -rhonchi. Symmetrical chest rise. No increase work of breathing. No respiratory distress. Cardiac: RRR, -mrg. Radial pulses intact and symmetrical. Abdominal: soft, non-tender, non-distended, BS x 4 Right Hip: moderate tenderness to light palpation of anterior hip/proximal femur Skin: warm, dry, no rash Results & Data Results & Data ([facility]) Vital Signs (Past 12 Hours) Vital Signs Temp Pulse Pulse Resp BP Pulse Ox 05/20/21 07:26 64 05/20/21 07:19 36.6 C 62 18 112/69 94 05/20/21 03:30 36.3 C L 60 20 111/67 95 Resident Activity Tracking Resident Involvement: Resident Care Provided Care Provided: Adult Hospital Medicine (1) Closed intertrochanteric fracture of femur Encounter type: initial encounter Fracture alignment: displaced Laterality: right Qualified Code(s): S72.141A - Displaced intertrochanteric fracture of right femur, initial encounter for closed fracture (2) Fall Encounter type: initial encounter Qualified Code(s): W19.XXXA - Unspecified fall, initial encounter
--- NOTE | 2021-05-20 13:35 | XCELERA ---
[id number]
[2021-05-20] MEDS ORDERED: LIDOCAINE 2% 2 ML VIAL/AMP(20MG/ML) INFIL ONE (14:00)
[2021-05-20] MEDS ORDERED: DEXAMETHASONE SOD INJ 4 MG/ML VIAL ONE (14:00)
[2021-05-20] MEDS ORDERED: ONDANSETRON INJ 2 MG/ML 2 ML VIAL ONE ×2 (14:00→17:26)
[2021-05-20] MEDS ORDERED: fentaNYL citrate 100 MCG/2 ML VIAL ONE ×2 (14:00→16:31)
[2021-05-20] MEDS ORDERED: PROPOFOL IV EMULSION 10 MG/ML 20 ML VIAL IV ONE (14:00)
[2021-05-20] MEDS ORDERED: ePHEDrine sulfate 50 MG/ML AMP IV PRN (14:20)
[2021-05-20] MEDS ORDERED: ATROPINE SULFATE 0.1 MG/ML 10ML SYR IV PRN (14:20)
[2021-05-20] MEDS ORDERED: fentaNYL citrate 100 MCG/2 ML VIAL IV PRN (14:20)
[2021-05-20] MEDS ORDERED: ONDANSETRON INJ 2 MG/ML 2 ML VIAL IV PRN (14:20)
[2021-05-20] MEDS ORDERED: TRANEXAMIC ACID / 0.7% NACL 1,000 MG/100 ML BAG IV ONE (14:33)
[2021-05-20] MEDS ORDERED: LIDOCAINE 1% LOCAL 20 ML VIAL ONE (14:48)
[2021-05-20] MEDS ORDERED: ePHEDrine sulfate 50 MG/ML SYR ONE (15:17)
[2021-05-20] MEDS ORDERED: PHENYLEPHRINE 100MCG/ML 5ML SYR ONE (15:17)
[2021-05-20] MEDS ORDERED: SODIUM CHLORIDE 0.9% INJ 10 ML VIAL ONE (15:17)
--- NOTE | 2021-05-20 17:43 | Electrocardiogram Report ---
Test Reason : Blood Pressure : / mmHG Vent. Rate : 064 BPM Atrial Rate : 064 BPM P-R Int : 448 ms QRS Dur : 102 ms QT Int : 428 ms P-R-T Axes : 080 -38 -21 degrees QTc Int : 441 ms Sinus rhythm with 1st degree A-V block Left axis deviation Low voltage QRS possible Inferior infarct , age undetermined Possible Anterolateral infarct (cited on or before 15-FEB-2020) Abnormal ECG Confirmed by Gonzalez Felipe ([id number]) on 05/20/2021 5:42:50 PM Referred By: REFERRED SELF Confirmed By:Jamison Felipe
--- NOTE | 2021-05-20 17:48 | Fluoroscopy Report ---
FL hip RT 2-3V CLINICAL HISTORY: RT TROCH NAIL COMPARISON STUDY: None. FLUOROSCOPY TIME: 4 minutes and 44 seconds. FINDINGS: 6 fluoroscopic spot images of the right hip demonstrates internal fixation of an intertroch anteric fracture with a femoral medullary britney and interlocking femoral neck pin. The hardware appears intact. Alignment is near-anatomic. IMPRESSION: Fluoroscopy provided for internal fixation of a right femoral intertrochanteric fracture. ACT 112: Negative or not required by law. Electronically signed by: Jaron Neff M.D. 05/20/2021 5:46 PM
--- NOTE | 2021-05-20 17:49 | Operative Report ---
Post Operative Report Pre & Post Diagnosis Operation Date: 05/20/21 10:00 <No data on this case meets the specified criteria> Operation Date: 05/20/21 10:00 Pre-Op Diagnosis: Closed Right Hip Fracture Post-Op Diagnosis: Closed Right Hip Fracture I identified the patient and participated in the time-out.: Yes Procedure Operation Date: 05/20/21 10:00 <No data on this case meets the specified criteria> Operation Date: 05/20/21 10:00 Actual Procedures p Right Hip Fracture Trochanteric Nail(Right) - Aman Dahl MD Surgeon ePdro Dahl Car Filler Jen Reid MD Estimated Blood Loss 100 Findings Consistent with Post-Op Diagnosis Right pertrochanteric fracture Specimens no specimens Description of Procedure Closed reduction and internal fixation with short intramedullary nail. See Dr. Dahl note I attest to the content of the Intraoperative Record and any orders documented therein. Any exceptions are noted below. Supervising Physician Co-Signing Physician Notes Dr. Dahl
--- NOTE | 2021-05-20 17:55 | Electrocardiogram Report ---
Test Reason : Blood Pressure : / mmHG Vent. Rate : 060 BPM Atrial Rate : 059 BPM P-R Int : 000 ms QRS Dur : 104 ms QT Int : 440 ms P-R-T Axes : 000 -46 -09 degrees QTc Int : 440 ms Suspect unspecified pacemaker failure Atrial paced rhythm with prolonged AV delay Left axis deviation Low voltage QRS Inferior infarct (cited on or before 19-MAY-2021) Anterolateral infarct (cited on or before 19-MAY-2021) Abnormal ECG Confirmed by Gonzalez Felipe ([id number]) on 05/20/2021 5:54:46 PM Referred By: REFERRED SELF Confirmed By:Jamison Felipe
--- NOTE | 2021-05-20 18:07 | Operative Report ---
Post Operative Report Pre & Post Diagnosis Operation Date: 05/20/21 10:00 <No data on this case meets the specified criteria> Operation Date: 05/20/21 10:00 Pre-Op Diagnosis: Closed Right Hip Fracture, comminuted intertrochanteric fracture Post-Op Diagnosis: Same I identified the patient and participated in the time-out.: Yes Procedure Operation Date: 05/20/21 10:00 <No data on this case meets the specified criteria> Operation Date: 05/20/21 10:00 Actual Procedures p Right Hip Fracture Trochanteric Nail(Right) - Aman Dahl MD Surgeon Aman Dahl MD Associate Professor Of Mathematics Jen Reid MD Estimated Blood Loss 100 Findings Consistent with Post-Op Diagnosis Specimens None Drains None Anesthesia Type General Regional Complications none Disposition Accompanied Patient To Recovery: No Disposition: Recovery Room Indications Barb is 85 years old. She was knocked over by her daughter's dog. She sustained a closed comminuted right hip intertrochanteric fracture. She was apprised of her options and elected to proceed with operative intervention which I recommended to her. Description of Procedure Informed consent obtained. Patient identified. She identified the operative site as the right hip. I marked with my initials. A preoperative surgical timeout performed. A preop dose of IV antibiotics was given. A preop dose of TXA was given. She was taken to the operating room positioned supine on the fracture table after administration of the anesthetic. She had good range of motion of the left hip and was placed into physiologic hip flexion abduction and external rotation near the maximum. She had an intact dorsalis pedis pulse after positioning. The table was slid to the affected side and a well-padded perineal post was previously inserted and then she was slid down the table to contact that. She was then placed into longitudinal traction with the right leg. Fluoroscopic guidance was utilized. Prior to prepping and draping close reduction was performed. I experimented with various rotations abduction abduction traction and correction of sag. The most anatomic reduction was with slight adduction and a few degrees of internal rotation and actually very little traction on the leg. Anterior directed force on the greater trochanter/fracture site area resulted in anatomic alignment. The greater trochanter was positioned a little bit more posteriorly. The leg was prescrubbed and prepped and draped in the usual sterile fashion. DVT prophylaxis with SCDs intraoperatively. Postoperatively she will have mechanical devices early mobility and restarted on her Eliquis. 8 cm incision was made just proximal to the greater trochanter identified fluoroscopically. Electrocautery was utilized down to the subcutaneous tissues. There was an abundant fat layer. Hemostasis was controlled throughout the procedure with the cautery as appropriate. The fascia was identified and divided in line with the incision at the midpoint of the trochanter. The greater trochanter was identified and a guidepin was introduced and adjusted x3 to be in the appropriate position at the tip of the trochanter just medial on the AP and in line with the shaft on the lateral view. This wire was then advanced distally below the lesser trochanter and then carefully overreamed with a 17 mm reamer. The canal looked narrow on the AP however she had had a CAT scan done which showed a larger canal therefore we eventually selected a 12mm s ized britney. A long intramedullary guide britney was inserted. The short troches nail was then inserted over this however it became incarcerated in the femoral canal meaning that it would not advance any further as it was too tight. It was not advanced far enough to insert the like bowl. Therefore we have removed the 12 mm diameter britney and then sequentially reamed from 9 mm up to 11-1/2 mm where we had a good amount of cortical chatter and therefore elected to downsize to a 10 mm diameter britney instead of the 12. This britney was then inserted under hand power finished off for the last half centimeter or so with blows gently from the mallet. The britney was aligned in the AP and lateral views. The triple trocar was inserted through percutaneous incision laterally down to the bone after dividing the fascia and muscle. The guidepin was introduced into the center position of the femoral head in both the AP and lateral views on the first try. Subsequently the length was determined to be 95 mm and it was overreamed with the lateral reamer and the triple reamer. The spiral blade was then inserted with blows of the mallet. It was fully seated. Her bone was very hard in the subcortical region and actually had very good cortical thickness. Tip apex distance was less than 25 mm. It was about 5 mm to the subchondral bone in both the AP and lateral positions. The setscrew was advanced. A distal interlocking screw was inserted percutaneously using the guide and the apparatus was disassembled. The fracture was well aligned and reduced. There was some comminution extending up into the greater trochanter. The fracture was began at the lesser and proceeded proximally to the lateral cortex and then up to the trochanter. The positioning of the hardware was confirmed in 2 planes with the fluoroscope as well as the reduction of the fracture. Copious irrigation was performed followed by closure of the distal incision with 0 and 2-0 Vicryl. The the proximal incision was closed with #1 Vicryl on the fascia followed by 0 Vicryl for the fat layer. 2-0 Vicryl and the skin with giovana for all incisions. The leg was cleaned with wet and dry sponges and lidocaine local anesthetic was injected into the skin and subcutaneous tissues. A soft sterile dressing was applied Xeroform 4 x 4 ABD foam tape. Patient was awakened from anesthesia and removed from the fracture table and taken to recovery room in stable condition. There were no specimens or complications. Counts were correct blood loss was 100 cc estimated. At the conclusion the operation spoke the patient's son informed him of my findings. Plan is to restart her Eliquis tomorrow morning. Carefully monitor her blood counts. She may weight-bear as tolerated and she will need PT and OT. The components inserted were a Synthes stroke nail 10 mm diameter and 11 mm x 95 mm helical blade and a distal interlocking screw 5mm diameter x38 mm in length. The nail itself had 130 degree angulation and was 10 mm wide distally. I attest to the content of the Intraoperative Record and any orders documented therein. Any exceptions are noted below.
--- NOTE | 2021-05-20 19:08 | Anesthesiology Progress Note ---
Date of Service May 20, 2021 Anesthesia Post Procedure Vital Signs Vital Signs: Temp Pulse Pulse Pulse Resp BP BP 05/20/21 18:50 36.8 C 63 20 86/45 L 05/20/21 18:40 36.8 C 62 16 82/44 L 05/20/21 18:30 36.8 C 64 16 91/47 L 05/20/21 18:20 63 16 91/52 L 05/20/21 18:10 64 16 98/51 L 05/20/21 18:00 66 16 100/49 L 05/20/21 17:53 36.7 C 62 16 87/43 L 05/20/21 12:59 36.7 C 66 18 132/62 05/20/21 11:35 36.6 C 57 L 18 111/71 05/20/21 07:26 64 05/20/21 07:19 36.6 C 62 18 112/69 05/20/21 03:30 36.3 C L 60 20 111/67 05/19/21 22:48 62 05/19/21 22:28 36.9 C 70 20 146/72 H 05/19/21 21:30 72 25 H 137/80 05/19/21 21:00 85 20 147/89 H 05/19/21 20:30 72 26 H 137/75 05/19/21 20:00 71 22 157/79 H 05/19/21 19:30 76 25 H 151/85 H Pulse Ox 05/20/21 18:50 93 05/20/21 18:40 96 05/20/21 18:30 93 05/20/21 18:20 94 05/20/21 18:10 100 05/20/21 18:00 100 05/20/21 17:53 100 05/20/21 12:59 95 05/20/21 11:35 91 05/20/21 07:26 05/20/21 07:19 94 05/20/21 03:30 95 05/19/21 22:48 05/19/21 22:28 97 05/19/21 21:30 94 05/19/21 21:00 95 05/19/21 20:30 96 05/19/21 20:00 94 05/19/21 19:30 91 Pain Intensity Right Hip: Pain Intensity: 0 Transfer of Care Handoff Completed per policy Notes Mental Status: alert / awake / arousable Patient Amnestic to Procedure: Yes Nausea / Vomiting: adequately controlled Pain: adequately controlled Airway Patency, RR, SpO2: stable & adequate BP & HR: stable & adequate Hydration State: stable & adequate Anesthetic Complications: no major complications apparent
[2021-05-20 20:37] LABS: Hematocrit (blood only) 29.5 % (37-47); Hemoglobin 9.5 g/dL (12.0-16.0); Mean Corpuscular Hgb Conc 32.2 g/dL (32-36); Mean Corpuscular Volume 96.4 fL (80-100); RDW Coefficient of Variation 14.5 % (11.5-14.5); RDW Standard Deviation 51.1 fL (36.4-46.3); Red Blood Count 3.06 M/uL (4.2-5.4); White Blood Count 15.72 K/uL (4.8-10.8)
[2021-05-20 20:40] LABS: Mean Platelet Volume 11.2 fL (7.4-10.4); Platelet Count 94 K/uL (130-400)
[2021-05-20 20:59] LABS: Basophils # (auto) 0.02 K/uL (0-0.2); Basophils % (auto) 0.1 %; Immature Granulocytes # (auto) 0.05 K/uL (0.00-0.02); Immature Granulocytes % (auto) 0.3 %; Lymphocytes % (auto) 3.2 %; Monocytes % (auto) 1.9 %; Neutrophils # (auto) 14.85 K/uL (1.4-6.5); Neutrophils % (auto) 94.5 %
[2021-05-20] MEDS ORDERED: SODIUM CHLORIDE 0.9% 1000ML 1,000 ML IV ONE (22:56)
[2021-05-21] MEDS: ACETAMINOPHEN 500 MG TAB PO SCH ×3 (05:50→21:14)
[2021-05-21 05:59] LABS: Hematocrit (blood only) 25.1 % (37-47); Hemoglobin 8.2 g/dL (12.0-16.0); Mean Corpuscular Hemoglobin 31.5 pg (25-34); Mean Corpuscular Hgb Conc 32.7 g/dL (32-36); Mean Corpuscular Volume 96.5 fL (80-100); RDW Coefficient of Variation 14.6 % (11.5-14.5); White Blood Count 13.07 K/uL (4.8-10.8)
[2021-05-21 06:02] LABS: Mean Platelet Volume 10.7 fL (7.4-10.4); Platelet Count 70 K/uL (130-400)
[2021-05-21] MEDS: LACTATED RINGER'S 1,000 ML IV SCH (06:15)
[2021-05-21 06:35] LABS: Basophils # (auto) 0.01 K/uL (0-0.2); Basophils % (auto) 0.1 %; Immature Granulocytes # (auto) 0.04 K/uL (0.00-0.02); Immature Granulocytes % (auto) 0.3 %; Lymphocytes # (auto) 0.67 K/uL (1.2-3.4); Lymphocytes % (auto) 5.1 %; Monocytes # (auto) 0.96 K/uL (0.11-0.59); Monocytes % (auto) 7.3 %; Neutrophils # (auto) 11.39 K/uL (1.4-6.5); Neutrophils % (auto) 87.2 %; RBC Morphology Unremarkable
[2021-05-21 06:44] LABS: Albumin Globulin Ratio 0.7 (0.9-2); Albumin Level 2.2 gm/dl (3.4-5.0); BUN Creatinine Ratio 26.1 (10-20); Bilirubin,Total 0.5 mg/dl (0.2-1); Calcium 7.7 mg/dl (8.5-10.1); Creatinine Clr Calc Pharmacy 24.1 ml/min; Est GFR (African American) 33.9 ml/min; Est GFR (Non-African American) 29.3 ml/min; Globulin 3.3 gm/dl (2.5-4.0); Magnesium 1.6 mg/dl (1.8-2.4); Potassium 5.3 mmol/L (3.5-5.1); Total Protein 5.5 gm/dl (6.4-8.2)
[2021-05-21] MEDS: SODIUM CHLORIDE 0.9% 1000ML 1,000 ML IV SCH ×3 (07:37→17:38)
[2021-05-21 08:01] LABS: INR 1.1 (0.9-1.1); Partial Thromboplastin Ratio 1.2; Partial Thromboplastin Time 31.9 Seconds (21.0-31.0); Prothrombin Time 10.9 Seconds (9.0-12.0)
[2021-05-21 08:06] LABS: Albumin Level 2.1 gm/dl (3.4-5.0); Bilirubin Direct 0.2 mg/dl (0-0.2); Bilirubin,Total 0.4 mg/dl (0.2-1); Total Protein 5.5 gm/dl (6.4-8.2)
[2021-05-21] MEDS: CALCIUM 600MG + VIT D 400 IU TAB PO SCH (08:21)
[2021-05-21] MEDS: FAMOTIDINE 20MG IV PUSH 20 MG/5 ML SYR IV SCH ×2 (08:21→21:25)
[2021-05-21] MEDS: MAGNESIUM SULFATE / D5W 1 GM/100 ML BAG IV SCH ×3 (08:21→12:16)
[2021-05-21] MEDS: allopurinoL 300 MG TAB PO SCH (08:22)
[2021-05-21] MEDS: ISOSORBIDE MONO EXTENDED REL 30 MG TABCR PO SCH (08:22)
[2021-05-21] MEDS: METOPROLOL TARTRATE 25 MG TAB PO SCH ×2 (08:23→21:15)
[2021-05-21] MEDS ORDERED: APIXABAN 5 MG TABLET PO SCH (09:00)
[2021-05-21] MEDS ORDERED: ceFAZolin 2000MG 2,000 MG/15 ML SYR IV ONE (09:00)
[2021-05-21] MEDS: HYDROCODONE/ACETAMOPHEN 5/325MG TAB PO PRN (10:28)
--- NOTE | 2021-05-21 11:45 | Orthopedic Progress Note ---
Date of Service May 21, 2021 Assessment & Plan (1) S/P ORIF (open reduction internal fixation) fracture: Plan: Continue PT/OT. Will await assessment from therapy to determine placement and discharge. Continue pain medication as needed. Dressings may be changed tomorrow. They are intact and dry today. Continue with her EZ WRAP gel pack for edema control. Continue Eliquis BID for DVT prophylaxis. Admission and Anticipated Discharge Date Admission Date: May 19, 2021 Subjective Patient was seen in her room this morning. She is postop day 1 from right hip trochanteric nailing. States she did have some pain and nausea this morning. Both have passed. She is currently doing fairly well on denies any significant pain. She did participate with PT this morning. Denies any chest pain, shortness of breath, abdominal pain, or vomiting. She currently has a cold gel pack resting against her right thigh. Physical Exam Physical Exam: Vitals: Temperature this morning is 36.3. BP 93/53. Pulse 80 O2 sat 92% on room air General: Well-developed, well-nourished, elderly female, in no acute distress. Laying in bed. Alert and oriented. Conversive. Skin: Warm and dry with good turgor. Expected postoperative ecchymosis and edema around her surgical site. Musculoskeletal: Patient has intact motor function of her ankle and toes. She has no hip pain with gentle logrolling of her hip or with passive hip flexion. She is able to set her quad but cannot do a straight leg raise at this point. Neurologic: Gross sensation is intact across the right leg by soft touch. Peripheral pulses are 2+. Results & Data ([facility]) Vital Signs (Past 12 Hours) Vital Signs Temp Pulse Pulse Resp BP BP Pulse Ox 05/21/21 11:01 80 05/21/21 11:00 36.3 C L 66 19 93/53 L 92 05/21/21 07:00 36.7 C 81 19 104/61 94 05/21/21 04:00 36.4 C L 81 20 91/59 L 95 05/21/21 00:19 88/51 L Laboratory Results CBC this morning shows white count of 13.0. H&H of 8.2 and 25.1. INR this morning is 1.1. Sodium 137, potassium 5.3, chloride 109, BUN of 42 with creatinine 1.6.
--- NOTE | 2021-05-21 12:38 | Hospitalist Progress Note ---
Date of Service May 21, 2021 Assessment & Plan (1) Closed intertrochanteric fracture of femur: Plan: Barb Mata is an 85yo female with PMHx of CAD, ischemic cardiomyopathy, s/p PPM, paroxysmal a-fib (on Eliquis), CKDIII, HTN, HLD, gout and bilateral SNHL who was admitted to [facility] on 05/19 due to right closed/displced intertrochanteric femoral fracture s/p mechanical fall. Right Closed/Displaced Intertrochanteric Femoral Fracture, POD 1 Internal Fixation S/p mechanical fall, confirmed via XR. - Orthopedic Surgery consulted - appreciate recs - continue PRN graduated pain regimen with Tylenol/[place]/Dilaudid - continue Vitamin D/Calcium supplement - consider outpatient DEXA (per PCP) Hypotension Remains 90s/50s despite increased IVFs rate. Suspect due to blood loss and fluid shifts post-operatively. - hold home Imdur, continue home Lopressor - continue NSS @100cc/hr IGNACIO Cr 1.6, baseline 1.0-1.1. Suspect pre-renal injury due to perioperative blood loss/fluid shifts. - continue IVFs as stated above - monitor BMP daily Acute Normocytic Anemia Baseline Hgb 12.4, down to 8.2 today. Suspect due to hemodilution as well as intra-operative blood loss. - continue to monitor daily - transfuse for Hgb <8 (h/o CAD) Thrombocytopenia Chronic. Peripheral smear unremarkable. May be due to Imdur (listed as adverse side effect in <5% of patients). - continue to monitor while hospitalized - recommend serial monitoring per PCP after discharge - recommend f/u with Interior Design Professor (Dr. Springer) to address this Paroxysmal Atrial Fibrillation Patient is paced in the 60s. Last Eliquis dose was >36 hours before surgery. - Eliquis was re-started by orthopedic surgery this morning - continue home Lopressor as mentioned above CAD/HTN/Ischemic Cardiomyopathy - TTE on 05/20 with EF 50-55% - continue to hold Aspirin, plan to re-start tomorrow AM - hold home Imdur for now, as stated above HLD - continue home Ezetimibe/Simvastatin Gout - continue home Allopurinol FEN/GI: heart-healthy diet, NSS @100cc/hr DVT Prophylaxis: home Eliquis Code Status: full code Disposition: med/surg with tele (2) Fall: (3) Ischemic cardiomyopathy: (4) CAD (coronary artery disease): (5) Paroxysmal atrial fibrillation: (6) Chronic kidney disease, stage 3: (7) Hypertension: (8) Postsurgical cardiac pacemaker in situ: (9) Gout: (10) Hyperlipidemia: (11) Sensorineural hearing loss (SNHL) of both ears: (12) Vitamin D deficiency: Admission and Anticipated Discharge Date Admission Date: May 19, 2021 Supervising Physician Co-Signing Physician Notes Attending attestation Pt seen and examined in concert with Dr. Andrews. In agreement with the documented findings as noted in the resident documentation with any exceptions or additions as noted here. Sitting in bedside chair, pain well controlled at present. Reports no CP/palpitations, SOB, lightheadedness. On examination, S1/S2 nl RRR no MCG. CTAB. Abd NT/ND BS+ve. b/l LE pulses 2+, sensation intact Acute on chronic anemia - Hgb of 7.2 with goal of 9 based on cardiac history - transfuse 2UPRBC, repeat H/H following 2nd unit. R closed, displaced intertrochanteric femoral fx - ortho consult - Pain control as noted. Last DEXA 3+ years ago per patient without significant pathology, obtain record, repeat as outpatient if this is the case. pAF - holding AC since evening dose on 05.19.21, continue metoprolol HTN w/ h/o CAD, ICM - holding ASA, imdur. Continue statin therapy. CKDIII - trend BMP, avoid nephrotoxic interventions where able, gentle hydration. Else see resident documentation as noted. Subjective Patient was hypotensive to 80s/40s yesterday post-operatively and improved to 90s/50s after 1L NSS. This morning remained 90s/50s and mIVFs rate was increased. She feels well this morning; pain well-controlled with Tylenol 1g IV x1 overnight. Able to sit up in chair without issues. Has not seen PT/OT yet. Denies fever/chills, chest pain, palpitations, SOB, cough, N/V, abdominal pain, rash. Review of Systems Review of Systems: All systems reviewed & are unremarkable except as noted in HPI & below Physical Exam Physical Exam: General: A&Ox3. NAD. Cooperative. HEENT: Atraumatic, normocephalic. Pulm: CTAB A&P. -wheezes, -rales, -rhonchi. Symmetrical chest rise. No increase work of breathing. No respiratory distress. Cardiac: RRR, -mrg. Radial pulses intact and symmetrical. Abdominal: soft, non-tender, non-distended, BS x 4 Skin: warm, dry, no rash Results & Data Results & Data ([facility]) Vital Signs (Past 12 Hours) Vital Signs Temp Pulse Pulse Resp BP Pulse Ox 05/21/21 11:01 80 05/21/21 11:00 36.3 C L 66 19 93/53 L 92 05/21/21 07:00 36.7 C 81 19 104/61 94 05/21/21 04:00 36.4 C L 81 20 91/59 L 95 Resident Activity Tracking Resident Involvement: Resident Care Provided Care Provided: Adult Hospital Medicine (1) Closed intertrochanteric fracture of femur Encounter type: initial encounter Fracture alignment: displaced Laterality: right Qualified Code(s): S72.141A - Displaced intertrochanteric fracture of right femur, initial encounter for closed fracture (2) Fall Encounter type: initial encounter Qualified Code(s): W19.XXXA - Unspecified fall, initial encounter
[2021-05-21 17:01] LABS: Hematocrit (blood only) 21.4 % (37-47); Hemoglobin 7.2 g/dL (12.0-16.0)
[2021-05-21] MEDS ORDERED: SODIUM CHLORIDE 0.9% 250 ML IV PRN (17:09)
[2021-05-21] MEDS: EZETIMIBE/SIMVASTATIN 10/40MG 1 TAB TAB PO SCH (20:44)
[2021-05-21] MEDS: DOCUSATE SODIUM/SENNA 50/8.6MG TAB PO SCH (20:45)
[2021-05-22] MEDS: SODIUM CHLORIDE 0.9% 1000ML 1,000 ML IV SCH ×5 (01:34→18:02)
[2021-05-22 02:22] LABS: Hematocrit (blood only) 26.6 % (37-47)
[2021-05-22] MEDS: ACETAMINOPHEN 500 MG TAB PO SCH ×3 (05:47→22:55)
[2021-05-22 06:57] LABS: Hematocrit (blood only) 27.1 % (37-47); Mean Corpuscular Hemoglobin 30.1 pg (25-34); Mean Corpuscular Hgb Conc 33.2 g/dL (32-36); Mean Corpuscular Volume 90.6 fL (80-100); RDW Coefficient of Variation 14.8 % (11.5-14.5); Red Blood Count 2.99 M/uL (4.2-5.4)
[2021-05-22 06:59] LABS: Mean Platelet Volume 10.8 fL (7.4-10.4); Platelet Count 83 K/uL (130-400)
[2021-05-22 07:15] LABS: Basophils # (auto) 0.01 K/uL (0-0.2); Basophils % (auto) 0.1 %; Eosinophils # (auto) 0.05 K/uL (0-0.5); Eosinophils % (auto) 0.5 %; Immature Granulocytes # (auto) 0.05 K/uL (0.00-0.02); Immature Granulocytes % (auto) 0.5 %; Lymphocytes # (auto) 0.85 K/uL (1.2-3.4); Lymphocytes % (auto) 8.1 %; Monocytes # (auto) 1.32 K/uL (0.11-0.59); Monocytes % (auto) 12.6 %; Neutrophils # (auto) 8.22 K/uL (1.4-6.5); Neutrophils % (auto) 78.2 %
[2021-05-22 07:22] LABS: Albumin Level 2.2 gm/dl (3.4-5.0); Calcium 7.4 mg/dl (8.5-10.1); Creatinine Clr Calc Pharmacy 17.6 ml/min; Est GFR (African American) 23.2 ml/min; Magnesium 2.6 mg/dl (1.8-2.4)
[2021-05-22 07:25] LABS: Albumin Globulin Ratio 0.7 (0.9-2); Bilirubin,Total 0.5 mg/dl (0.2-1); Globulin 3.2 gm/dl (2.5-4.0); Total Protein 5.4 gm/dl (6.4-8.2)
[2021-05-22] MEDS: METOPROLOL TARTRATE 25 MG TAB PO SCH ×2 (08:32→21:30)
[2021-05-22] MEDS: ASPIRIN 81 MG ECTAB PO SCH (08:33)
[2021-05-22] MEDS: allopurinoL 300 MG TAB PO SCH (08:33)
[2021-05-22] MEDS: APIXABAN 2.5 MG TAB PO SCH ×2 (08:33→21:27)
[2021-05-22] MEDS: CALCIUM 600MG + VIT D 400 IU TAB PO SCH (08:33)
[2021-05-22] MEDS: FAMOTIDINE 20MG IV PUSH 20 MG/5 ML SYR IV SCH ×2 (08:34→21:29)
[2021-05-22] MEDS: HYDROCODONE/ACETAMOPHEN 5/325MG TAB PO PRN ×3 (08:56→21:26)
--- NOTE | 2021-05-22 09:50 | Ultrasound Report ---
US renal/blad retro comp HISTORY: 85 years-old Female IGNACIO, oliguria acute kidney injury COMPARISON: CT abdomen pelvis 02/14/2017 TECHNIQUE: Multiple real-time sonographic images of the kidneys and urinary bladder were obtained ass essing grayscale appearance and color flow FINDINGS: The right kidney measures 7.8 cm in length. Left kidney measures 8.7 cm in length. Mild cortical thin erwin of the kidneys. No renal calculi, hydronephrosis or suspicious mass lesion. Decompressed urinary bladder is not visualized. IMPRESSION: 1. Mild bilateral renal cortical thinning. No renal calculi or hydronephrosis. 2. Nonvisualization of the urinary bladder. ACT 112: Negative or not required by law. The above report was generated using voice recognition software. It may contain grammatical, syntax o r spelling errors. Electronically signed by: Corby Gamez M.D. 05/22/2021 9:49 AM
[2021-05-22 09:56] LABS: Appearance Urine Clear (Clear); Bacteria Urine Automated Negative (Negative); Bilirubin Urine Negative (Negative); Blood Urine Negative (Negative); Color Urine Yellow; Glucose Urine UA Negative (Negative); Ketones Urine Negative (Negative); Leukocyte Esterase Urine Trace (Negative); Nitrite Urine Negative (Negative); Protein Urine Negative (Negative); RBC Urine Automated 0-4 /hpf (0-4); Specific Gravity Urine 1.011 (1.000-1.030); Urobilinogen Urine Negative (Negative); pH Urine 5.5 (4.5-7.5)
[2021-05-22 10:12] LABS: Creatinine Urine Random 45.4 mg/dl
--- NOTE | 2021-05-22 12:56 | Hospitalist Progress Note ---
Date of Service May 22, 2021 Assessment & Plan (1) Closed intertrochanteric fracture of femur: Plan: Barb Mata is an 85yo female with PMHx of CAD, ischemic cardiomyopathy, s/p PPM, paroxysmal a-fib (on Eliquis), CKDIII, HTN, HLD, gout and bilateral SNHL who was admitted to [facility] on 05/19 due to right closed/displced intertrochanteric femoral fracture s/p mechanical fall. Right Closed/Displaced Intertrochanteric Femoral Fracture, POD 2 Internal Fixation S/p mechanical fall, confirmed via XR. - Orthopedic Surgery consulted - appreciate recs - continue PRN graduated pain regimen with Tylenol/Hiram/Dilaudid - continue Vitamin D/Calcium supplement - consider outpatient DEXA (per PCP) IGNACIO Cr 2.19, baseline 1.0-1.1. Continues to worsen despite mIVFs and RBC infusions. FENa 0.5, no signs of intra-renal pathology or obstruction per US kidneys/bladder. Suspect pre-renal injury due to post-contrast nephropathy as well as perioperative blood loss/fluid shifts - increased NSS to 125cc/hr - monitor BMP daily - consider Nephrology consult tomorrow if Cr does not improve Hypotension, resolving Improving s/p RBC transfusions last night and current mIVFs. - continue to home Imdur, continue home Lopressor - increased mIVFs as stated above Acute Normocytic Anemia Baseline Hgb 12.4, down to 7.2 on 05/21. Suspect due to hemodilution as well as intra-operative blood loss. - Hgb improved to 9.0 s/p 2units pRBCs yesterday - continue to monitor daily - transfuse for Hgb <8 (h/o CAD) Thrombocytopenia Chronic. Peripheral smear unremarkable. May be due to Imdur (listed as adverse side effect in <5% of patients). - continue to monitor while hospitalized - recommend serial monitoring per PCP after discharge - recommend f/u with Epic Prelude Analyst (Dr. Springer) to address possible side effect of Imdur Paroxysmal Atrial Fibrillation Patient is paced in the 60s. - decreased Eliquis to 2.5mg PO BID (given impaired renal function and age) - continue home Lopressor as mentioned above CAD/HTN/Ischemic Cardiomyopathy - TTE on 05/20 with EF 50-55% - continue Aspirin - hold home Imdur for now, as stated above HLD - continue home Ezetimibe/Simvastatin Gout - continue home Allopurinol FEN/GI: heart-healthy diet, NSS @125cc/hr DVT Prophylaxis: Eliquis 2.5mg PO BID Code Status: full code Disposition: med/surg with tele, CM to assist with rehab option (insurance auth pending) (2) Fall: (3) Ischemic cardiomyopathy: (4) CAD (coronary artery disease): (5) Paroxysmal atrial fibrillation: (6) Chronic kidney disease, stage 3: (7) Hypertension: (8) Postsurgical cardiac pacemaker in situ: (9) Gout: (10) Hyperlipidemia: (11) Sensorineural hearing loss (SNHL) of both ears: (12) Vitamin D deficiency: Admission and Anticipated Discharge Date Admission Date: May 19, 2021 Supervising Physician Co-Signing Physician Notes I also saw the patient and I discussed the case with the resident physician. I confirmed clark portions of the history and physical examination. I agree with the impression and plan as noted in the resident documentation. Upon my exam, she is pleasant. No distress appreciated. She has been up to the bedside chair in the bathroom without significant dizziness. Denies chest pain, palpitations, dyspnea. EXAM 108/65, 57, 18, 36.4, 94% on room air Alert and oriented. No distress. HEENT grossly unremarkable Heart regular Lungs clear with nonlabored respirations Lower extremity without edema or calf tenderness DATA Hemoglobin 9.0, up from 7.2 yesterday status post transfusion Platelet count 83, up from 70 yesterday. Sodium 135, potassium 5.0, BUN 50, creatinine 2.19 IMPRESSION AND PLAN Acute on chronic anemia Impression and plan improved status post transfusion 2 units packed red blood cells Repeat hemoglobin in a.m., especially in setting of resume systemic a nticoagulation Status post ORIF, postop day #2 Appreciate orthopedics recommendations Continue Eliquis, for which she is on at home for her atrial fibrillation, although will use 2.5 mg twice daily given her age and current renal function Acute kidney injury Creatinine today 2.19, baseline around 1.0. Renal ultrasound unremarkable Consider contrast nephropathy plus or minus relative dehydration in the perioperative period Continue gentle fluids BMP and a.m. Else see resident documentation as noted. Subjective Patient received 2 units pRBCs overnight. This morning reports continuing to feel well overall. Pain is well-controlled with medications. Denies fever/chills, headache, lightheadedness/dizziness, chest pain, palpitations, SOB, cough N/V, abdominal pain. Denies bleeding from surgical site. Review of Systems Review of Systems: All systems reviewed & are unremarkable except as noted in HPI & below Physical Exam Physical Exam: General: A&Ox3. NAD. Cooperative. HEENT: Atraumatic, normocephalic. Pulm: CTAB A&P. -wheezes, -rales, -rhonchi. Symmetrical chest rise. No increase work of breathing. No respiratory distress. Cardiac: RRR, -mrg. Radial pulses intact and symmetrical. Abdominal: soft, non-tender, non-distended, BS x 4 Skin: warm, dry, no rash, right hip with dressing c/d/i Results & Data Results & Data ([facility]) Vital Signs (Past 12 Hours) Vital Signs Temp Pulse Pulse Resp BP BP BP 05/22/21 11:42 36.4 C L 57 L 18 108/65 05/22/21 11:00 60 05/22/21 06:34 36.3 C L 79 18 107/56 L 05/22/21 04:00 36.4 C L 60 18 107/65 05/22/21 02:03 36.4 C L 60 16 100/54 L 05/22/21 01:14 36.4 C L 57 L 16 104/50 L Pulse Ox 05/22/21 11:42 94 05/22/21 11:00 05/22/21 06:34 95 05/22/21 04:00 95 05/22/21 02:03 95 05/22/21 01:14 95 Resident Activity Tracking Resident Involvement: Resident Care Provided Care Provided: Adult Hospital Medicine (1) Closed intertrochanteric fracture of femur Encounter type: initial encounter Fracture alignment: displaced Laterality: right Qualified Code(s): S72.141A - Displaced intertrochanteric fracture of right femur, initial encounter for closed fracture (2) Fall Encounter type: initial encounter Qualified Code(s): W19.XXXA - Unspecified fall, initial encounter
--- NOTE | 2021-05-22 13:06 | Orthopedic Progress Note ---
Date of Service May 22, 2021 Assessment & Plan (1) S/P ORIF (open reduction internal fixation) fracture: Plan: POD 2 - ORIF right hip fracture Continue out of bed, with assistance Ice PRN swelling of hip and thigh Elevate right lower extremity as needed for pain/swelling. She may weight bear as tolerated right lower extremity. No hip precautions of right hip necessary. May do active ROM of all lower extremities. Use walker to assist with ambulation. Eliquis for DVT prophylaxis. Will discuss findings with Dr. Dahl. Follow up scheduled if discharged over the weekend. Admission and Anticipated Discharge Date Admission Date: May 19, 2021 Subjective Patient sitting in bedside chair. Mild pain in right hip, but only with m ovement. No pain at rest. States that her morning session of PT wasn't great, but her second session this afternoon went better. Physical Exam Musculoskeletal: Incision right hip clean, dry and intact. giovana retained. Mild edema right thigh. New dressings applied to right hip. Tolerates active ROM of right knee, flexion to 90 and able to actively extend right knee. Calf is supple. No calf tenderness. Distal pulses and sensation normal. Results & Data ([facility]) Vital Signs (Past 12 Hours) Vital Signs Temp Pulse Pulse Resp BP BP BP 05/22/21 11:42 36.4 C L 57 L 18 108/65 05/22/21 11:00 60 05/22/21 06:34 36.3 C L 79 18 107/56 L 05/22/21 04:00 36.4 C L 60 18 107/65 05/22/21 02:03 36.4 C L 60 16 100/54 L 05/22/21 01:14 36.4 C L 57 L 16 104/50 L Pulse Ox 05/22/21 11:42 94 05/22/21 11:00 05/22/21 06:34 95 05/22/21 04:00 95 05/22/21 02:03 95 05/22/21 01:14 95 Laboratory Results 05/22/21 05/22/21 05/22/21 Range/Units 09:00 09:00 06:39 WBC (4.8-10.8) K/uL RBC (4.2-5.4) M/uL Hgb (12.0-16.0) g/dL Hct (37-47) % MCV (80-100) fL MCH (25-34) pg MCHC (32-36) g/dL RDW Std Deviation (36.4-46.3) fL RDW Coeff of Deb[place] (11.5-14.5) % Plt Count (130-400) K/uL MPV (7.4-10.4) fL Immature Gran % (Auto) % Neut % (Auto) % Lymph % (Auto) % [place] % (Auto) % Eos % (Auto) % Baso % (Auto) % Neut # (Auto) (1.4-6.5) K/uL Lymph # (Auto) (1.2-3.4) K/uL [place] # (Auto) (0.11-0.59) K/uL Eos # (Auto) (0-0.5) K/uL Baso # (Auto) (0-0.2) K/uL Immature Gran # (Auto) (0.00-0.02) K/uL Sodium 135 L (136-145) mmol/L Potassium 5.0 (3.5-5.1) mmol/L Chloride 107 (98-107) mmol/L Carbon Dioxide 24 (21-32) mmol/L Anion Gap 4.0 (3-11) BUN 50 H (7-18) mg/dl Creatinine 2.19 H D (0.6-1.2) mg/dl Est Cr Clr Drug Dosing 17.6 ml/min Est GFR ( Amer) 23.2 ml/min Est GFR (Non-Af Amer) 20.0 ml/min BUN/Creatinine Ratio 23.0 H (10-20) Glucose 143 H (70-99) mg/dl Calcium 7.4 L (8.5-10.1) mg/dl Magnesium 2.6 H (1.8-2.4) mg/dl Total Bilirubin 0.5 (0.2-1) mg/dl AST 34 (15-37) U/L ALT 15 (12-78) U/L Alkaline Phosphatase 54 (45-117) U/L Total Protein 5.4 L (6.4-8.2) gm/dl Albumin 2.2 L (3.4-5.0) gm/dl Globulin 3.2 (2.5-4.0) gm/dl Albumin/Globulin Ratio 0.7 L (0.9-2) Urine Color Yellow Urine Appearance Clear (Clear) Urine pH 5.5 (4.5-7.5) Ur Specific [place] 1.011 (1.000-1.030) Urine Protein Negative (Negative) Urine Glucose (UA) Negative (Negative) Urine Ketones Negative (Negative) Urine Blood Negative (Negative) Urine Nitrite Negative (Negative) Urine Bilirubin Negative (Negative) Urine Urobilinogen Negative (Negative) Ur Leukocyte Esterase Trace H (Negative) Urine WBC (Auto) 1-5 (0-5) /hpf Urine RBC (Auto) 0-4 (0-4) /hpf U Hyaline Cast (Auto) 1-5 (0-5) /lpf U Epithel Cells (Auto) 5-10 H (0-5) /lpf Urine Bacteria (Auto) Negative (Negative) Ur Random Creatinine 45.4 mg/dl Ur Random Sodium 14 mmol/L Blood Type Antibody Screen Crossmatch 05/22/21 05/22/21 05/21/21 Range/Units 06:39 02:06 16:42 WBC 10.50 (4.8-10.8) K/uL RBC 2.99 L (4.2-5.4) M/uL Hgb 9.0 L 9.0 L 7.2 L (12.0-16.0) g/dL Hct 27.1 L 26.6 L 21.4 L (37-47) % MCV 90.6 D (80-100) fL MCH 30.1 (25-34) pg MCHC 33.2 (32-36) g/dL RDW Std Deviation 48.0 H (36.4-46.3) fL RDW Coeff of Debby 14.8 H (11.5-14.5) % Plt Count 83 L (130-400) K/uL MPV 10.8 H (7.4-10.4) fL Immature Gran % (Auto) 0.5 % Neut % (Auto) 78.2 % Lymph % (Auto) 8.1 % [place] % (Auto) 12.6 % Eos % (Auto) 0.5 % Baso % (Auto) 0.1 % Neut # (Auto) 8.22 H (1.4-6.5) K/uL Lymph # (Auto) 0.85 L (1.2-3.4) K/uL [place] # (Auto) 1.32 H (0.11-0.59) K/uL Eos # (Auto) 0.05 (0-0.5) K/uL Baso # (Auto) 0.01 (0-0.2) K/uL Immature Gran # (Auto) 0.05 H (0.00-0.02) K/uL Sodium (136-145) mmol/L Potassium (3.5-5.1) mmol/L Chloride (98-107) mmol/L Carbon Dioxide (21-32) mmol/L Anion Gap (3-11) BUN (7-18) mg/dl Creatinine (0.6-1.2) mg/dl Est Cr Clr Drug Dosing ml/min Est GFR ( Amer) ml/min Est GFR (Non-Af Amer) ml/min BUN/Creatinine Ratio (10-20) Glucose (70-99) mg/dl Calcium (8.5-10.1) mg/dl Magnesium (1.8-2.4) mg/dl Total Bilirubin (0.2-1) mg/dl AST (15-37) U/L ALT (12-78) U/L Alkaline Phosphatase (45-117) U/L Total Protein (6.4-8.2) gm/dl Albumin (3.4-5.0) gm/dl Globulin (2.5-4.0) gm/dl Albumin/Globulin Ratio (0.9-2) Urine Color Urine Appearance (Clear) Urine pH (4.5-7.5) Ur Specific [place] (1.000-1.030) Urine Protein (Negative) Urine Glucose (UA) (Negative) Urine Ketones (Negative) Urine Blood (Negative) Urine Nitrite (Negative) Urine Bilirubin (Negative) Urine Urobilinogen (Negative) Ur Leukocyte Esterase (Negative) Urine WBC (Auto) (0-5) /hpf Urine RBC (Auto) (0-4) /hpf U Hyaline Cast (Auto) (0-5) /lpf U Epithel Cells (Auto) (0-5) /lpf Urine Bacteria (Auto) (Negative) Ur Random Creatinine mg/dl Ur Random Sodium mmol/L Blood Type Antibody Screen Crossmatch 05/19/21 Range/Units 15:38 WBC (4.8-10.8) K/uL RBC (4.2-5.4) M/uL Hgb (12.0-16.0) g/dL Hct (37-47) % MCV (80-100) fL MCH (25-34) pg MCHC (32-36) g/dL RDW Std Deviation (36.4-46.3) fL RDW Coeff of Debby (11.5-14.5) % Plt Count (130-400) K/uL MPV (7.4-10.4) fL Immature Gran % (Auto) % Neut % (Auto) % Lymph % (Auto) % [place] % (Auto) % Eos % (Auto) % Baso % (Auto) % Neut # (Auto) (1.4-6.5) K/uL Lymph # (Auto) (1.2-3.4) K/uL [place] # (Auto) (0.11-0.59) K/uL Eos # (Auto) (0-0.5) K/uL Baso # (Auto) (0-0.2) K/uL Immature Gran # (Auto) (0.00-0.02) K/uL Sodium (136-145) mmol/L Potassium (3.5-5.1) mmol/L Chloride (98-107) mmol/L Carbon Dioxide (21-32) mmol/L Anion Gap (3-11) BUN (7-18) mg/dl Creatinine (0.6-1.2) mg/dl Est Cr Clr Drug Dosing ml/min Est GFR ( Amer) ml/min Est GFR (Non-Af Amer) ml/min BUN/Creatinine Ratio (10-20) Glucose (70-99) mg/dl Calcium (8.5-10.1) mg/dl Magnesium (1.8-2.4) mg/dl Total Bilirubin (0.2-1) mg/dl AST (15-37) U/L ALT (12-78) U/L Alkaline Phosphatase (45-117) U/L Total Protein (6.4-8.2) gm/dl Albumin (3.4-5.0) gm/dl Globulin (2.5-4.0) gm/dl Albumin/Globulin Ratio (0.9-2) Urine Color Urine Appearance (Clear) Urine pH (4.5-7.5) Ur Specific [place] (1.000-1.030) Urine Protein (Negative) Urine Glucose (UA) (Negative) Urine Ketones (Negative) Urine Blood (Negative) Urine Nitrite (Negative) Urine Bilirubin (Negative) Urine Urobilinogen (Negative) Ur Leukocyte Esterase (Negative) Urine WBC (Auto) (0-5) /hpf Urine RBC (Auto) (0-4) /hpf U Hyaline Cast (Auto) (0-5) /lpf U Epithel Cells (Auto) (0-5) /lpf Urine Bacteria (Auto) (Negative) Ur Random Creatinine mg/dl Ur Random Sodium mmol/L Blood Type O Positive Antibody Screen NEGATIVE Crossmatch See Detail
--- NOTE | 2021-05-22 17:32 | Electrocardiogram Report ---
Test Reason : Blood Pressure : / mmHG Vent. Rate : 060 BPM Atrial Rate : 468 BPM P-R Int : 000 ms QRS Dur : 108 ms QT Int : 442 ms P-R-T Axes : 000 -17 030 degrees QTc Int : 442 ms Suspect unspecified pacemaker failure Atrial paced rhythm with long AV delay Low voltage QRS Inferior infarct (cited on or before 19-MAY-2021) Anterolateral infarct (cited on or before 19-MAY-2021) Abnormal ECG Confirmed by Gonzalez Felipe ([id number]) on 05/22/2021 5:32:18 PM Referred By: REFERRED SELF Confirmed By:Jamison Felipe
[2021-05-22] MEDS: EZETIMIBE/SIMVASTATIN 10/40MG 1 TAB TAB PO SCH (21:26)
[2021-05-22] MEDS: DOCUSATE SODIUM/SENNA 50/8.6MG TAB PO SCH (21:29)
[2021-05-23] MEDS: SODIUM CHLORIDE 0.9% 1000ML 1,000 ML IV SCH ×3 (01:50→18:41)
[2021-05-23] MEDS: ACETAMINOPHEN 500 MG TAB PO SCH ×3 (06:32→22:06)
[2021-05-23 07:40] LABS: Hematocrit (blood only) 26.6 % (37-47); Hemoglobin 8.9 g/dL (12.0-16.0); Mean Corpuscular Hemoglobin 30.8 pg (25-34); Mean Corpuscular Hgb Conc 33.5 g/dL (32-36); Nucleated RBC # (auto) 0.03 K/uL (0-0); Nucleated RBC % (auto) 0.3 %; RDW Coefficient of Variation 15.4 % (11.5-14.5); Red Blood Count 2.89 M/uL (4.2-5.4)
[2021-05-23 07:43] LABS: Mean Platelet Volume 10.7 fL (7.4-10.4); Platelet Count 96 K/uL (130-400)
[2021-05-23 07:57] LABS: BUN Creatinine Ratio 27.1 (10-20); Calcium 7.6 mg/dl (8.5-10.1); Creatinine Clr Calc Pharmacy 25.6 ml/min; Est GFR (African American) 33.7 ml/min; Est GFR (Non-African American) 29.1 ml/min; Magnesium 2.3 mg/dl (1.8-2.4); Phosphorus 1.8 mg/dl (2.5-4.9); Potassium 4.9 mmol/L (3.5-5.1)
--- NOTE | 2021-05-23 07:57 | Hospitalist Progress Note ---
Date of Service May 23, 2021 Assessment & Plan (1) Closed intertrochanteric fracture of femur: Plan: Barb Mata is an 85yo female with PMHx of CAD, ischemic cardiomyopathy, s/p PPM, paroxysmal a-fib (on Eliquis), CKDIII, HTN, HLD, gout and bilateral SNHL who was admitted to [facility] on 05/19 due to right closed/displced intertrochanteric femoral fracture s/p mechanical fall. Right Closed/Displaced Intertrochanteric Femoral Fracture, POD 3 Internal Fixation S/p mechanical fall, confirmed via XR. - Orthopedic Surgery consulted - appreciate recs - continue PRN graduated pain regimen with Tylenol/[place]/Dilaudid - continue Vitamin D/Calcium supplement - PT/OT consulted--recommend inpt rehab - CM with referrals to [facility], [facility], [facility] pending - consider outpatient DEXA (per PCP) IGNACIO Baseline 1.0-1.1. Initially worsening despite mIVFs and RBC infusions. FENa 0.5, no signs of intra-renal pathology or obstruction per US kidneys/bladder. Suspect pre-renal injury due to post-contrast nephropathy as well as perioperative blood loss/fluid shifts - Improving today to 1.61 - decreased NSS to 100cc/hr - monitor BMP daily - consider Nephrology consult tomorrow if Cr worsens or does not continue to improve Hypotension Improving s/p RBC transfusions 05/21 and current mIVFs. - continue to hold home Imdur - Plan to continue home metoprolol -- was held today due to hypotension - continue mIVFs as stated above Acute Normocytic Anemia Baseline Hgb 12.4, down to 7.2 on 05/21. Suspect due to hemodilution as well as intra-operative blood loss. - Hgb remains stable ~9 s/p 2U PRBCs on 05/21 - continue to monitor daily - transfuse for Hgb <8 (h/o CAD) Thrombocytopenia Chronic. Peripheral smear unremarkable. May be due to Imdur (listed as adverse side effect in <5% of patients). - continue to monitor while hospitalized - recommend serial monitoring per PCP after discharge - recommend f/u with Coach (Dr. Springer) to address possible side effect of Imdur Paroxysmal Atrial Fibrillation Patient is paced in the 60s. - decreased Eliquis to 2.5mg PO BID (given impaired renal function and age) - continue home Lopressor as mentioned above CAD/HTN/Ischemic Cardiomyopathy - TTE on 05/20 with EF 50-55% - continue Aspirin - hold home Imdur for now, as stated above HLD - continue home Ezetimibe/Simvastatin Gout - continue home Allopurinol FEN/GI: heart-healthy diet, NSS @100cc/hr DVT Prophylaxis: Eliquis 2.5mg PO BID Code Status: full code Disposition: med/surg with tele, CM to assist with rehab option (insurance auth pending) (2) Fall: (3) Ischemic cardiomyopathy: (4) CAD (coronary artery disease): (5) Paroxysmal atrial fibrillation: (6) Chronic kidney disease, stage 3: (7) Hypertension: (8) Postsurgical cardiac pacemaker in situ: (9) Gout: (10) Hyperlipidemia: (11) Sensorineural hearing loss (SNHL) of both ears: (12) Vitamin D deficiency: Admission and Anticipated Discharge Date Admission Date: May 19, 2021 Supervising Physician Co-Signing Physician Notes I also saw the patient and I discussed the case with the resident physician. I confirmed clark portions of the history and physical examination. I agree with the impression and plan as noted in the resident documentation. Upon my exam, she is pleasant. No distress appreciated. She has been up to the bedside chair in the bathroom without significant dizziness. Denies chest pain, palpitations, dyspnea. Her greatest complaint is inability to lift the right leg. It feels heavy to her. She does note she is doing leg raises in her chair as instructed by physical therapy; she notes that she is little better yesterday than today previous. EXAM 100/58, 65, 18, 36.7, 95% on room air Alert and oriented. No distress. HEENT grossly unremarkable Heart regular Lungs clear with nonlabored respirations Lower extremity without edema or calf tenderness DATA Hemoglobin 8.9. Platelet count 96, up from 83 yesterday. Sodium 137, potassium 4.9, BUN 44, creatinine 1.61 Phosphorus 1.8 IMPRESSION AND PLAN Acute on chronic anemia Improved status post transfusion 2 units packed red blood cells Hemoglobin today is stable Low blood pressures Holding Imdur Beta-nohemy was held this morning Continue to monitor Status post ORIF, postop day #3 Appreciate orthopedics recommendations Continue Eliquis, for which she is on at home for her atrial fibrillation, although will use 2.5 mg twice daily given her age and current renal function Continue physical therapy; at this point, she probably will need some sort of inpatient rehabilitation Acute kidney injury Improvement in renal function; electrolytes unremarkable except low phosphorus Replete phosphorus Renal ultrasound unremarkable yesterday Consider contrast nephropathy plus or minus relative dehydration in the perioperative period Decrease IV fluids to 100 cc/h BMP and a.m. Else see resident documentation as noted. Subjective No acute events overnight. This morning reports continuing to feel well overall. Pain is well-controlled with medications. She mentions feeling a little stiff in her right hip but she is working on ROM on her own and will continue with PT pending Denies fever/chills, headache, lightheadedness/dizziness, chest pain, palpitations, SOB, cough N/V, abdominal pain. Review of Systems Review of Systems: per HPI Physical Exam Physical Exam: General: A&Ox3. NAD. Cooperative. HEENT: Atraumatic, normocephalic. Pulm: CTAB A&P. -wheezes, -rales, -rhonchi. Symmetrical chest rise. No increase work of breathing. No respiratory distress. Cardiac: RRR, -mrg. Radial pulses intact and symmetrical. Abdominal: soft, non-tender, non-distended, BS x 4 Skin: warm, dry, no rash, right hip with dressing c/d/i Results & Data Results & Data ([facility]) Vital Signs (Past 12 Hours) Vital Signs Temp Pulse Pulse Resp BP BP Pulse Ox 05/23/21 03:12 36.5 C 81 18 94/57 L 97 05/23/21 02:20 61 05/22/21 23:31 36.4 C L 63 17 114/66 93 05/22/21 21:29 69 138/74 Resident Activity Tracking Resident Involvement: Resident Care Provided Care Provided: Adult Hospital Medicine (1) Closed intertrochanteric fracture of femur Encounter type: initial encounter Fracture alignment: displaced Laterality: right Qualified Code(s): S72.141A - Displaced intertrochanteric fracture of right femur, initial encounter for closed fracture (2) Fall Encounter type: initial encounter Qualified Code(s): W19.XXXA - Unspecified fall, initial encounter
[2021-05-23 08:00] LABS: Basophils # (auto) 0.02 K/uL (0-0.2); Basophils % (auto) 0.2 %; Eosinophils # (auto) 0.15 K/uL (0-0.5); Eosinophils % (auto) 1.4 %; Immature Granulocytes # (auto) 0.05 K/uL (0.00-0.02); Immature Granulocytes % (auto) 0.5 %; Lymphocytes # (auto) 1.31 K/uL (1.2-3.4); Lymphocytes % (auto) 12.6 %; Monocytes # (auto) 1.65 K/uL (0.11-0.59); Monocytes % (auto) 15.9 %; Neutrophils # (auto) 7.22 K/uL (1.4-6.5); Neutrophils % (auto) 69.4 %
[2021-05-23] MEDS ORDERED: POTASSIUM PHOS 3 MMOL/1 ML INFUSION IV STA (08:10)
[2021-05-23] MEDS ORDERED: POTASSIUM PHOSPHATE 21 MMOL in SODIUM CHLORIDE 0.9% 500 ML IV ONE (08:45)
[2021-05-23] MEDS: FAMOTIDINE 20MG IV PUSH 20 MG/5 ML SYR IV SCH ×2 (09:35→20:27)
[2021-05-23] MEDS: APIXABAN 2.5 MG TAB PO SCH ×2 (09:35→20:25)
[2021-05-23] MEDS: METOPROLOL TARTRATE 25 MG TAB PO SCH ×2 (09:36→20:25)
[2021-05-23] MEDS: ASPIRIN 81 MG ECTAB PO SCH (09:37)
[2021-05-23] MEDS: CALCIUM 600MG + VIT D 400 IU TAB PO SCH (09:37)
[2021-05-23] MEDS: allopurinoL 300 MG TAB PO SCH (09:37)
[2021-05-23] MEDS: HYDROCODONE/ACETAMOPHEN 5/325MG TAB PO PRN (12:12)
[2021-05-23] MEDS: EZETIMIBE/SIMVASTATIN 10/40MG 1 TAB TAB PO SCH (20:25)
[2021-05-23] MEDS: DOCUSATE SODIUM/SENNA 50/8.6MG TAB PO SCH (20:26)
[2021-05-24] MEDS: ACETAMINOPHEN 500 MG TAB PO SCH ×3 (05:37→20:56)
[2021-05-24 07:41] LABS: Basophils # (auto) 0.02 K/uL (0-0.2); Basophils % (auto) 0.2 %; Eosinophils # (auto) 0.13 K/uL (0-0.5); Eosinophils % (auto) 1.4 %; Hematocrit (blood only) 26.3 % (37-47); Hemoglobin 8.5 g/dL (12.0-16.0); Immature Granulocytes # (auto) 0.07 K/uL (0.00-0.02); Immature Granulocytes % (auto) 0.8 %; Lymphocytes # (auto) 0.87 K/uL (1.2-3.4); Lymphocytes % (auto) 9.6 %; Mean Corpuscular Hemoglobin 30.7 pg (25-34); Mean Corpuscular Hgb Conc 32.3 g/dL (32-36); Mean Corpuscular Volume 94.9 fL (80-100); Mean Platelet Volume 10.3 fL (7.4-10.4); Monocytes # (auto) 1.41 K/uL (0.11-0.59); Monocytes % (auto) 15.6 %; Neutrophils # (auto) 6.53 K/uL (1.4-6.5); Neutrophils % (auto) 72.4 %; Nucleated RBC # (auto) 0.02 K/uL (0-0); Nucleated RBC % (auto) 0.2 %; Platelet Count 102 K/uL (130-400); RDW Coefficient of Variation 15.5 % (11.5-14.5); RDW Standard Deviation 53.4 fL (36.4-46.3); Red Blood Count 2.77 M/uL (4.2-5.4); White Blood Count 9.03 K/uL (4.8-10.8)
[2021-05-24 07:58] LABS: BUN Creatinine Ratio 29.7 (10-20); Calcium 8.2 mg/dl (8.5-10.1); Creatinine Clr Calc Pharmacy 35.7 ml/min; Est GFR (African American) 49.6 ml/min; Est GFR (Non-African American) 42.8 ml/min; Magnesium 2.3 mg/dl (1.8-2.4); Phosphorus 2.2 mg/dl (2.5-4.9); Potassium 5.4 mmol/L (3.5-5.1)
[2021-05-24] MEDS ORDERED: SODIUM PHOSPHATE 3 MMOL/1 ML INFUSION IV STA ×2 (08:01→17:32)
[2021-05-24] MEDS: APIXABAN 2.5 MG TAB PO SCH (08:40)
[2021-05-24] MEDS: FAMOTIDINE 20MG IV PUSH 20 MG/5 ML SYR IV SCH ×2 (08:40→20:58)
[2021-05-24] MEDS: METOPROLOL TARTRATE 25 MG TAB PO SCH ×2 (08:41→20:57)
[2021-05-24] MEDS: CALCIUM 600MG + VIT D 400 IU TAB PO SCH (08:42)
[2021-05-24] MEDS: allopurinoL 300 MG TAB PO SCH (08:42)
[2021-05-24] MEDS: ASPIRIN 81 MG ECTAB PO SCH (08:42)
[2021-05-24] MEDS ORDERED: SODIUM PHOSPHATE 9 MMOL in SODIUM CHLORIDE 0.9% 250 ML IV ONE ×2 (08:45→18:15)
[2021-05-24] MEDS ORDERED: POLYETHYLENE (MIRALAX) 17 GM PACK PO ONE (09:00)
[2021-05-24] MEDS ORDERED: POLYETHYLENE (MIRALAX) 17 GM PACK PO PRN (11:05)
--- NOTE | 2021-05-24 11:16 | Hospitalist Progress Note ---
Date of Service May 24, 2021 Assessment & Plan (1) Closed intertrochanteric fracture of femur: Plan: Barb Mata is an 85yo female with PMHx of CAD, ischemic cardiomyopathy, s/p PPM, paroxysmal a-fib (on Eliquis), CKDIII, HTN, HLD, gout and bilateral SNHL who was admitted to [facility] on 05/19 due to right closed/displced intertrochanteric femoral fracture s/p mechanical fall. Right Closed/Displaced Intertrochanteric Femoral Fracture, POD 4 Internal Fixation S/p mechanical fall, confirmed via XR. - Orthopedic Surgery consulted - appreciate recs - continue PRN graduated pain regimen with Tylenol/[place]/Dilaudid - continue Vitamin D/Calcium supplement - PT/OT consulted--recommend inpt rehab - CM with referrals to [facility], [facility] pending - consider outpatient DEXA (per PCP) IGNACIO, resolved Baseline 1.0-1.1. Initially worsening despite mIVFs and RBC infusions. FENa 0.5, no signs of intra-renal pathology or obstruction per US kidneys/bladder. Suspect pre-renal injury due to post-contrast nephropathy as well as perioperative blood loss/fluid shifts. Cr improved to 1.17 today. - stopped IVFs on 05/23 - monitor BMP daily Hyperkalemia K 5.4 today. May be due to IGNACIO even though it is resolving as of today. - will re-check this afternoon - monitor BMP daily Hypotension, improving Improving s/p RBC transfusions 05/21 and IVFs. Now 110s/60s. - continue to hold home Imdur - decreased Lopressor to 12.5mg PO BID given low pressures and rate-controlled Acute Normocytic Anemia Baseline Hgb 12.4, down to 7.2 on 05/21. Suspect due to hemodilution as well as intra-operative blood loss. Remains relatively stable in 8s, s/p 2 units pRBCs on 05/21. - repeat H/H today - transfuse for Hgb <8 (h/o CAD) Thrombocytopenia Chronic. Peripheral smear unremarkable. May be due to Imdur (listed as adverse side effect in <5% of patients). - continue to monitor while hospitalized - recommend serial monitoring per PCP after discharge - recommend f/u with Auditing Coder (Dr. Springer) to address possible side effect of Imdur Paroxysmal Atrial Fibrillation Patient is paced in the 60s. - decreased Eliquis to 2.5mg PO BID while hospitalized (given impaired renal function and age); plan to increase back to home dose pending H/H this afternoon - decreased home Lopressor dose as mentioned above CAD/HTN/Ischemic Cardiomyopathy - TTE on 05/20 with EF 50-55% - continue Aspirin - hold home Imdur for now, as stated above HLD - continue home Ezetimibe/Simvastatin Gout - continue home Allopurinol FEN/GI: heart-healthy diet DVT Prophylaxis: Eliquis 2.5mg PO BID Code Status: full code Disposition: med/surg with tele, CM to assist with rehab placement (insurance auth pending) (2) Fall: (3) Ischemic cardiomyopathy: (4) CAD (coronary artery disease): (5) Paroxysmal atrial fibrillation: (6) Chronic kidney disease, stage 3: (7) Hypertension: (8) Postsurgical cardiac pacemaker in situ: (9) Gout: (10) Hyperlipidemia: (11) Sensorineural hearing loss (SNHL) of both ears: (12) Vitamin D deficiency: Admission and Anticipated Discharge Date Admission Date: May 19, 2021 Supervising Physician Co-Signing Physician Notes I also saw the patient and I discussed the case with the resident physician. I confirmed clark portions of the history and physical examination. I agree with the impression and plan as noted in the resident documentation. EXAM 109/54, 77, 20, 36.3, 91% on room air Alert and oriented. No distress. HEENT grossly unremarkable Heart regular Lungs clear with nonlabored respirations Lower extremity without edema or calf tenderness DATA Hemoglobin 8.5, platelet count 102 Potassium 5.4, BUN 35, creatinine 1.17 IMPRESSION AND PLAN Acute on chronic anemia Improved status post transfusion 2 units packed red blood cells Hemoglobin remained stable Platelet count has been trending up Low blood pressures Trending up Holding Imdur Beta-nohemy held per parameters Continue to monitor Status post ORIF, postop day #4 Appreciate orthopedics recommendations Continue Eliquis, for which she is on at home for her atrial fibrillation; increased to 5 mg p.o. twice daily given improved renal function. Continue physical therapy; at this point, she probably will need some sort of inpatient rehabilitation [facility] will be patient's first choice; referrals to [facility], [facility], [facility] Acute kidney injury, resolved Hyperkalemia Repeat BMP later this afternoon with respect to hyperkalemia Suspect contrast-induced nephropathy, resolved Discontinue IV fluids as she is tolerating p.o. well Else see resident documentation as noted. Subjective IVFs held yesterday evening for LE edema, which is significantly improved this morning. Reports feeling well overall. Pain well-controlled. Trying to ambulate with PT. Denies fever/chills, chest pain, palpitations, SOB, cough, N/V, abdominal pain, rash. Review of Systems Review of Systems: All systems reviewed & are unremarkable except as noted in HPI & below Physical Exam Physical Exam: General: A&Ox3. NAD. Cooperative. HEENT: Atraumatic, normocephalic. Pulm: CTAB A&P. -wheezes, -rales, -rhonchi. Symmetrical chest rise. No increase work of breathing. No respiratory distress. Cardiac: RRR, -mrg. Radial pulses intact and symmetrical. Trace non-pitting edema to shins bilaterally Abdominal: soft, non-tender, non-distended, BS x 4 Skin: warm, dry, no rash, right hip with dressing c/d/i Results & Data Results & Data ([facility]) Vital Signs (Past 12 Hours) Vital Signs Temp Pulse Pulse Resp BP BP Pulse Ox 05/24/21 11:00 63 05/24/21 08:00 36.5 C 65 18 115/69 93 05/24/21 04:13 60 05/24/21 02:40 36.6 C 60 17 109/70 93 05/23/21 23:28 36.5 C 76 16 122/81 93 Resident Activity Tracking Resident Involvement: Resident Care Provided Care Provided: Adult Hospital Medicine (1) Closed intertrochanteric fracture of femur Encounter type: initial encounter Fracture alignment: displaced Laterality: right Qualified Code(s): S72.141A - Displaced intertrochanteric fracture of right femur, initial encounter for closed fracture (2) Fall Encounter type: initial encounter Qualified Code(s): W19.XXXA - Unspecified fall, initial encounter
[2021-05-24] MEDS: POLYETHYLENE (MIRALAX) 17 GM PACK PO SCH ×4 (15:15→17:58)
[2021-05-24 16:30] LABS: Hematocrit (blood only) 29.2 % (37-47); Hemoglobin 9.5 g/dL (12.0-16.0)
[2021-05-24 16:47] LABS: Calcium 8.2 mg/dl (8.5-10.1); Est GFR (African American) 46.6 ml/min; Est GFR (Non-African American) 40.2 ml/min; Potassium 5.3 mmol/L (3.5-5.1)
[2021-05-24 16:48] LABS: Magnesium 2.3 mg/dl (1.8-2.4); Phosphorus 2.3 mg/dl (2.5-4.9)
[2021-05-24] MEDS: APIXABAN 5 MG TABLET PO SCH (20:56)
[2021-05-24] MEDS: EZETIMIBE/SIMVASTATIN 10/40MG 1 TAB TAB PO SCH (20:57)
[2021-05-24] MEDS: DOCUSATE SODIUM/SENNA 50/8.6MG TAB PO SCH (20:57)
[2021-05-25] MEDS: ACETAMINOPHEN 500 MG TAB PO SCH ×3 (05:57→22:20)
[2021-05-25] MEDS: METOPROLOL TARTRATE 25 MG TAB PO SCH ×2 (08:13→21:15)
[2021-05-25] MEDS: APIXABAN 5 MG TABLET PO SCH ×2 (08:13→21:15)
[2021-05-25] MEDS: ASPIRIN 81 MG ECTAB PO SCH (08:13)
[2021-05-25] MEDS: CALCIUM 600MG + VIT D 400 IU TAB PO SCH (08:13)
[2021-05-25] MEDS: allopurinoL 300 MG TAB PO SCH (08:13)
[2021-05-25] MEDS: FAMOTIDINE 20MG IV PUSH 20 MG/5 ML SYR IV SCH ×2 (08:16→21:17)
[2021-05-25 08:17] LABS: Basophils # (auto) 0.03 K/uL (0-0.2); Basophils % (auto) 0.3 %; Eosinophils # (auto) 0.12 K/uL (0-0.5); Eosinophils % (auto) 1.1 %; Hematocrit (blood only) 26.8 % (37-47); Hemoglobin 8.7 g/dL (12.0-16.0); Immature Granulocytes # (auto) 0.12 K/uL (0.00-0.02); Immature Granulocytes % (auto) 1.1 %; Lymphocytes # (auto) 1.39 K/uL (1.2-3.4); Mean Corpuscular Hemoglobin 30.5 pg (25-34); Mean Corpuscular Hgb Conc 32.5 g/dL (32-36); Mean Platelet Volume 9.9 fL (7.4-10.4); Monocytes # (auto) 1.46 K/uL (0.11-0.59); Monocytes % (auto) 13.6 %; Neutrophils # (auto) 7.61 K/uL (1.4-6.5); Neutrophils % (auto) 70.9 %; Platelet Count 129 K/uL (130-400); RDW Coefficient of Variation 15.3 % (11.5-14.5); RDW Standard Deviation 51.6 fL (36.4-46.3); Red Blood Count 2.85 M/uL (4.2-5.4); White Blood Count 10.73 K/uL (4.8-10.8)
[2021-05-25 08:45] LABS: BUN Creatinine Ratio 25.1 (10-20); Calcium 8.3 mg/dl (8.5-10.1); Creatinine Clr Calc Pharmacy 46.5 ml/min; Est GFR (African American) 68.1 ml/min; Est GFR (Non-African American) 58.7 ml/min; Magnesium 2.2 mg/dl (1.8-2.4); Potassium 5.3 mmol/L (3.5-5.1)
[2021-05-25 08:52] LABS: Phosphorus 2.3 mg/dl (2.5-4.9)
--- NOTE | 2021-05-25 09:26 | Hospitalist Progress Note ---
Date of Service May 25, 2021 Assessment & Plan (1) Closed intertrochanteric fracture of femur: Plan: Barb Mata is an 85yo female with PMHx of CAD, ischemic cardiomyopathy, s/p PPM, paroxysmal a-fib (on Eliquis), CKDIII, HTN, HLD, gout and bilateral SNHL who was admitted to [facility] on 05/19 due to right closed/displced intertrochanteric femoral fracture s/p mechanical fall. Right Closed/Displaced Intertrochanteric Femoral Fracture, POD 5 Internal Fixation S/p mechanical fall, confirmed via XR. - Orthopedic Surgery consulted - appreciate recs - continue PRN graduated pain regimen with Tylenol/[place]/Dilaudid - continue Vitamin D/Calcium supplement - PT/OT consulted--recommend inpt rehab - with referrals to [facility], [facility] pending - encourage incentive spirometry - consider outpatient DEXA (per PCP) Acute Normocytic Anemia Baseline Hgb 12.4, down to 7.2 on 05/21. Suspect due to hemodilution as well as intra-operative blood loss. Remains relatively stable in 8s, s/p 2 units pRBCs on 05/21. - monitor CBC daily - transfuse for Hgb <8 (h/o CAD) Thrombocytopenia Chronic. Peripheral smear unremarkable. May be due to Imdur (listed as adverse side effect in <5% of patients). - continue to monitor daily - recommend serial monitoring per PCP after discharge - recommend f/u with Book Jacket Cover Machine Operator (Dr. Springer) to address possible side effect of Imdur IGNACIO, resolved Baseline 1.0-1.1. Initially worsening despite mIVFs and RBC infusions. FENa 0.5, no signs of intra-renal pathology or obstruction per US kidneys/bladder. Suspect pre-renal injury due to post-contrast nephropathy as well as perioperative blood loss/fluid shifts. Cr improved to 0.9 today. - stopped IVFs on 05/23 - monitor BMP daily Hyperkalemia K 5.3 today. May be due to recently resolved IGNACIO as well as lack of BMs until last night. Patient asymptomatic. - monitor BMP daily Hypotension, resolved Resolved s/p RBC transfusions 05/21 and IVFs. Now 110s/60s. - re-started home Imdur today - continue 08/16 dose Lopressor: 12.5mg PO BID Paroxysmal Atrial Fibrillation Patient is paced in the 60s. - decreased Eliquis to 2.5mg PO BID while hospitalized (given impaired renal function and age); plan to increase back to home dose pending H/H this afternoon - decreased home Lopressor dose as mentioned above CAD/HTN/Ischemic Cardiomyopathy - TTE on 05/20 with EF 50-55% - continue Aspirin - re-started Imdur as stated above HLD - continue home Ezetimibe/Simvastatin Gout - continue home Allopurinol FEN/GI: heart-healthy diet DVT Prophylaxis: Eliquis 5mg PO BID Code Status: full code Disposition: med/surg, CM to assist with rehab placement (insurance auth pending) (2) Fall: (3) Ischemic cardiomyopathy: (4) CAD (coronary artery disease): (5) Paroxysmal atrial fibrillation: (6) Chronic kidney disease, stage 3: (7) Hypertension: (8) Postsurgical cardiac pacemaker in situ: (9) Gout: (10) Hyperlipidemia: (11) Sensorineural hearing loss (SNHL) of both ears: (12) Vitamin D deficiency: Admission and Anticipated Discharge Date Admission Date: May 19, 2021 Supervising Physician Co-Signing Physician Notes I personally examined the patient and verified all clark points of history and exam, discussed case, and agree with decision making with Dr Andrews Feeling okay, out of bed. Just waiting on rehab. No new complaints. Vitals noted, in general she is awake and alert pleasant no distress. HEENT normocephalic atraumatic mucous membranes moist. Breathing unlabored no accessory muscle use good effort. Skin shows no rashes no pallor or icterus. Intertrochanteric femur fractureprobably osteoporoticpostop and doing well. PT/OT eval and treat, outpatient bone health work-up, for rehab once approved/bed available. Presumed osteoporosisoutpatient bone health work-up and treatment AKIresolved Acute blood loss anemiarelated to femur fractureoverall stable. Thrombocytopeniaoutpatient follow-up Otherwise as above Subjective No acute events overnight. Reports feeling well overall. Pain well-controlled. Trying to ambulate with PT. Denies fever/chills, chest pain, palpitations, SOB, cough, N/V, abdominal pain, rash. Review of Systems Review of Systems: All systems reviewed & are unremarkable except as noted in HPI & below Physical Exam Physical Exam: General: A&Ox3. NAD. Cooperative. HEENT: Atraumatic, normocephalic. Pulm: CTAB A&P. -wheezes, -rales, -rhonchi. Symmetrical chest rise. No increase work of breathing. No respiratory distress. Cardiac: RRR, -mrg. Radial pulses intact and symmetrical. No LE edema Abdominal: soft, non-tender, non-distended, BS x 4 Skin: warm, dry, no rash, right hip with dressing c/d/i Results & Data Results & Data ([facility]) Vital Signs (Past 12 Hours) Vital Signs Temp Pulse Pulse Resp BP BP Pulse Ox 05/25/21 09:00 62 05/25/21 07:29 36.4 C L 80 18 138/72 95 05/25/21 05:13 36.6 C 61 20 130/71 95 05/25/21 03:00 62 05/25/21 00:47 62 05/24/21 23:00 36.4 C L 76 18 139/68 96 Resident Activity Tracking Resident Involvement: Resident Care Provided Care Provided: Adult Hospital Medicine (1) Closed intertrochanteric fracture of femur Encounter type: initial encounter Fracture alignment: displaced Laterality: right Qualified Code(s): S72.141A - Displaced intertrochanteric fracture of right femur, initial encounter for closed fracture (2) Fall Encounter type: initial encounter Qualified Code(s): W19.XXXA - Unspecified fall, initial encounter
[2021-05-25] MEDS: ISOSORBIDE MONO EXTENDED REL 30 MG TABCR PO SCH (10:32)
--- NOTE | 2021-05-25 11:07 | Progress Notes ---
DATE OF SERVICE: 05/25/2021 She is postop day #5 from her right hip trochanteric femoral nail. She appears to have had some knee discomfort. The nurse indicates she complained of knee pain and she has an ice pack on it, but to meghann galvan she really did not note much of it. She is afebrile. Her vital signs are stable. White count 11, hemoglobin 9, hematocrit 27, platelets are 129. Therapy notes are reviewed. Her right leg is swollen. There is an ice pack on her knee. Foot is warm with 5/[address] sensation. IMPRESSION: Right hip trochanteric femoral nail, acute postsurgical anemia secondary to blood loss, pathological fracture secondary to probable osteoporosis. PLAN: Elevate the leg. Apply ROSE stockings. Continue PT and OT. Await transfer. She may weightbe ar as tolerated. Obtain an x-ray of the right knee. She is sitting in a chair today. The nurse reports some serous drainage on the dressing. We will in spect when she gets back in the bed at some point. Job ID: [id number]
--- NOTE | 2021-05-25 11:39 | XRay Report ---
XR knee RT 3V HISTORY: 85 years-old Female pain . Acute pain and swelling of the right knee COMPARISON: Right femur radiographs 05/19/2021 TECHNIQUE: 3 views of the right knee FINDINGS: Demineralized appearance of the bones. 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 Mild diffuse soft tissue prominence. No acute fracture, dislocation or opaque foreign body. IMPRESSION: Mild soft tissue swelling without acute fracture. ACT 112: Negative or not required by law. The above report was generated using voice recognition software. It may contain grammatical, syntax o r spelling errors. Electronically signed by: Corby Gamez M.D. 05/25/2021 11:38 AM
--- NOTE | 2021-05-25 18:18 | Billing Data ---
Date of Service May 25, 2021 Coding Level of Care Code 64972 Subseq Hosp Care Lvl 2
--- NOTE | 2021-05-25 18:19 | Billing Data ---
Date of Service May 25, 2021 Coding Level of Care Code 32295 Subseq Hosp Care Lvl 2
[2021-05-25] MEDS: DOCUSATE SODIUM/SENNA 50/8.6MG TAB PO SCH (21:15)
[2021-05-25] MEDS: EZETIMIBE/SIMVASTATIN 10/40MG 1 TAB TAB PO SCH (21:15)
[2021-05-26] MEDS: ACETAMINOPHEN 500 MG TAB PO SCH ×3 (06:08→21:29)
[2021-05-26 06:27] LABS: Basophils # (auto) 0.03 K/uL (0-0.2); Basophils % (auto) 0.3 %; Eosinophils # (auto) 0.21 K/uL (0-0.5); Eosinophils % (auto) 2.3 %; Hemoglobin 8.5 g/dL (12.0-16.0); Immature Granulocytes # (auto) 0.28 K/uL (0.00-0.02); Immature Granulocytes % (auto) 3.1 %; Lymphocytes # (auto) 1.18 K/uL (1.2-3.4); Mean Corpuscular Hemoglobin 31.4 pg (25-34); Mean Corpuscular Hgb Conc 32.7 g/dL (32-36); Mean Corpuscular Volume 95.9 fL (80-100); Monocytes # (auto) 1.29 K/uL (0.11-0.59); Monocytes % (auto) 14.2 %; Neutrophils % (auto) 67.1 %; Nucleated RBC # (auto) 0.04 K/uL (0-0); Nucleated RBC % (auto) 0.4 %; Platelet Count 142 K/uL (130-400); RDW Coefficient of Variation 15.5 % (11.5-14.5); RDW Standard Deviation 52.2 fL (36.4-46.3); Red Blood Count 2.71 M/uL (4.2-5.4); White Blood Count 9.09 K/uL (4.8-10.8)
[2021-05-26 06:42] LABS: BUN Creatinine Ratio 21.9 (10-20); Calcium 8.5 mg/dl (8.5-10.1); Creatinine Clr Calc Pharmacy 44.2 ml/min; Est GFR (African American) 65.4 ml/min; Est GFR (Non-African American) 56.4 ml/min; Magnesium 1.9 mg/dl (1.8-2.4); Potassium 4.7 mmol/L (3.5-5.1)
--- NOTE | 2021-05-26 08:31 | Hospitalist Progress Note ---
Date of Service May 26, 2021 Assessment & Plan (1) Closed intertrochanteric fracture of femur: Plan: Barb Mata is an 85yo female with PMHx of CAD, ischemic cardiomyopathy, s/p PPM, paroxysmal a-fib (on Eliquis), CKDIII, HTN, HLD, gout and bilateral SNHL who was admitted to [facility] on 05/19 due to right closed/displced intertrochanteric femoral fracture s/p mechanical fall. Right Closed/Displaced Intertrochanteric Femoral Fracture, POD 5 Internal Fixation S/p mechanical fall, confirmed via XR. Likely 2/2 osteoporosis. - Orthopedic Surgery consulted - appreciate recs - scant bloody drainage from incision overnight - will hold Eliquis for today and re-assess tomorrow - continue PRN graduated pain regimen with Tylenol/[place]/Dilaudid - continue Vitamin D/Calcium supplement - PT/OT consulted - recommend inpt rehab - with referrals to [facility], [facility] pending - encourage incentive spirometry - consider outpatient DEXA (per PCP) Acute Normocytic Anemia Baseline Hgb 12.4, down to 7.2 on 05/21. Suspect due to hip fx and intra- operative blood loss. Remains relatively stable in 8s, s/p 2 units pRBCs on 05/21. - monitor CBC daily - transfuse for Hgb <8 (h/o CAD) Thrombocytopenia, resolving. Appeared chronic on admission, but plts beginning to increase over last couple days; plts 142 today. Peripheral smear unremarkable. May be due to Imdur (listed as adverse side effect in <5% of patients). - continue to monitor daily - recommend serial monitoring per PCP after discharge - recommend f/u with X Ray Developing Machine Operator (Dr. Springer) to address possible side effect of Imdur IGNACIO, resolved Baseline 1.0-1.1. Initially worsening despite mIVFs and RBC infusions. FENa 0.5, no signs of intra-renal pathology or obstruction per US kidneys/bladder. Suspect pre-renal injury due to post-contrast nephropathy as well as perioperative blood loss/fluid shifts. Cr improved to 0.9 today. - stopped IVFs on 05/23 - monitor BMP daily Hyperkalemia, resolved K 5.3 --> 4.7 today. May have been due to recently resolved IGNACIO as well as lack of BMs until ~24 hours ago. Patient asymptomatic. - monitor BMP daily Hypotension, resolved Resolved s/p RBC transfusions 05/21 and IVFs. Now normotensive/stable. - continue home Imdur - continue 1/2 dose Lopressor: 12.5mg PO BID Paroxysmal Atrial Fibrillation Patient is paced in the 60s. - continue home Eliquis - decreased home Lopressor dose as mentioned above - will re-evaluate before deciding on dose on discharge CAD/HTN/Ischemic Cardiomyopathy - TTE on 05/20 with EF 50-55% - continue Aspirin and Imdur HLD - continue home Ezetimibe/Simvastatin Gout - continue home Allopurinol FEN/GI: heart-healthy diet DVT Prophylaxis: SCDs, held Eliquis today as mentioned above Code Status: full code Disposition: med/surg, CM to assist with rehab placement (referrals made, pending) (2) Fall: (3) Ischemic cardiomyopathy: (4) CAD (coronary artery disease): (5) Paroxysmal atrial fibrillation: (6) Chronic kidney disease, stage 3: (7) Hypertension: (8) Postsurgical cardiac pacemaker in situ: (9) Gout: (10) Hyperlipidemia: (11) Sensorineural hearing loss (SNHL) of both ears: (12) Vitamin D deficiency: Admission and Anticipated Discharge Date Admission Date: May 19, 2021 Supervising Physician Co-Signing Physician Notes I personally examined the patient and verified all clark points of history and exam, discussed case, and agree with decision making with Dr Andrews trying to get around better, doing better overall, still needs assistance. rehab denied by insurance via pre peer to peer. Vitals noted, in general she is awake and alert pleasant no distress. HEENT normocephalic atraumatic mucous membranes moist. Breathing unlabored no accessory muscle use good effort. Skin shows no rashes no pallor or icterus. vac drain present on leg now. Intertrochanteric femur fractureprobably osteoporoticpostop and doing well. PT/OT eval and treat, outpatient bone health work-up, see below under dispo. Presumed osteoporosisoutpatient bone health work-up and treatment AKIresolved Acute blood loss anemiarelated to femur fractureoverall stable. hemodynamically stable. follow Thrombocytopeniaoutpatient follow-up dispo - would be most appropriate for rehab, denied in pre peer to peer. seems that largely reviewing provider determined that 3hrs of PT would be too much although with how she is doing with therapy i am not entirely clear how this c ould be concluded. i vehemently disagree with this denial and believe that she would be best served at a rehab facility where she could get more intensive therapy and maximize her potential, and believe that this insurance company decision compromises her care in ways we are unable to remedy. because of this i am hopeful that the family appeal results an an overturning of this poor decision. at the same time case management has set things in motion for possible subacute rehab at snf vs setting up support at home for an eventual discharge home. either way, the insurance company denial of what appears, to those of us actually taking care of her, to be totally reasonable and appropriate rehab services for recovery from a hip fracture has at the very least put her in potential harm's way be further lengthening her stay (which was already lengthened by days due to insurance company taking an excessively long time to even offer this denial, given that case management set things in motion for disposition on 05/21) and delaying any kind of more intensive rehab care than we are able to provide in an acute inpatient hospital. these questionable decisions and delays in care on the part of insurance are decidedly increasing her risk of suboptimal outcomes or increased morbidity, and they are doing so for purposes that have a long standing historical precedent of being entirely rehab-appropriate. Otherwise as above Subjective No acute events overnight. Reports feeling well overall. Pain well-controlled with Tylenol. Trying to ambulate with PT. Awaiting rehab availability. Denies fever/chills, chest pain, palpitations, SOB, cough, N/V, abdominal pain, rash. Review of Systems Review of Systems: All systems reviewed & are unremarkable except as noted in HPI & below Physical Exam Physical Exam: General: A&Ox3. NAD. Cooperative. HEENT: Atraumatic, normocephalic. Pulm: CTAB A&P. -wheezes, -rales, -rhonchi. Symmetrical chest rise. No increase work of breathing. No respiratory distress. Cardiac: RRR, -mrg. Radial pulses intact and symmetrical. No LE edema. Abdominal: soft, non-tender, non-distended, BS x 4 Skin: warm, dry, no rash, right hip with dressing c/d/i Results & Data Results & Data ([facility]) Vital Signs (Past 12 Hours) Vital Signs Temp Pulse Pulse Resp BP Pulse Ox 05/26/21 06:27 61 05/26/21 03:00 36.6 C 72 17 138/75 98 05/25/21 23:00 36.8 C 71 18 155/75 H 94 Resident Activity Tracking Resident Involvement: Resident Care Provided Care Provided: Adult Hospital Medicine (1) Closed intertrochanteric fracture of femur Encounter type: initial encounter Fracture alignment: displaced Laterality: right Qualified Code(s): S72.141A - Displaced intertrochanteric fracture of right femur, initial encounter for closed fracture (2) Fall Encounter type: initial encounter Qualified Code(s): W19.XXXA - Unspecified fall, initial encounter
[2021-05-26] MEDS: allopurinoL 300 MG TAB PO SCH (09:15)
[2021-05-26] MEDS: METOPROLOL TARTRATE 25 MG TAB PO SCH ×2 (09:15→20:25)
[2021-05-26] MEDS: ISOSORBIDE MONO EXTENDED REL 30 MG TABCR PO SCH (09:15)
[2021-05-26] MEDS: CALCIUM 600MG + VIT D 400 IU TAB PO SCH (09:15)
[2021-05-26] MEDS: ASPIRIN 81 MG ECTAB PO SCH (09:15)
[2021-05-26] MEDS: APIXABAN 5 MG TABLET PO SCH (09:16)
--- NOTE | 2021-05-26 10:32 | Orthopedic Progress Note ---
Date of Service May 26, 2021 Assessment & Plan (1) S/P ORIF (open reduction internal fixation) fracture: Plan: POD 2 - ORIF right hip fracture Continue out of bed, with assistance Ice PRN swelling of hip and thigh Elevate right lower extremity as needed for pain/swelling. She may weight bear as tolerated right lower extremity. No hip precautions of right hip necessary. May do active ROM of all lower extremities. Use walker to assist with ambulation. Eliquis for DVT prophylaxis. Will discuss findings with Dr. Dahl. Follow up scheduled if discharged over the weekend. Admission and Anticipated Discharge Date Admission Date: May 19, 2021 Subjective Improved swelling and le Results & Data ([facility]) Vital Signs (Past 12 Hours) Vital Signs Temp Pulse Pulse Resp BP Pulse Ox 05/26/21 09:14 36.4 C L 79 20 135/74 93 05/26/21 06:27 61 05/26/21 03:00 36.6 C 72 17 138/75 98 05/25/21 23:00 36.8 C 71 18 155/75 H 94
--- NOTE | 2021-05-26 11:51 | Progress Notes ---
DATE OF SERVICE: 05/26/2021. SUBJECTIVE: The patient was seen at bedside. The hip is sore. She reports no other significant iss ues. OBJECTIVE: She is afebrile and her vital signs are stable. There is no recorded urine output. Hemo globin is 8.5, hematocrit 26, platelets are 142, and white count is 9. PRP is noted. Her leg is less swollen today. She can flex and extend her ankle and she has normal strength to plan tarflexion, dorsiflexion, inversion, eversion, and a 1+ dorsalis pedis pulse. The calf is nontender. Minimal swelling. She does have pretibial tenderness bilaterally, which she states is chronic. Wi th encouragement, she can bend her knee to about 45 or perhaps 60 degrees. She is unable to do a str aight leg raise or lift her heel off of the bed. Her wound is inspected. There is positive moderate amount of serous drainage. No erythema. I do not feel any fluctuance. There is some bruising pres ent. Positive swelling. X-rays of the knee are reviewed. There are some mild degenerative changes, but no fracture. IMPRESSION: Postop day #7 status post right hip intertrochanteric fracture stabilization with wound drainage. PLAN: Findings are discussed. Ongoing wound drainage at this point, is concerning. I think that th is is likely secondary to swelling and large adipose layer. We did a careful closure in a layered fa shion. I do not see that there was a hematoma or evidence of infection. It is uncertain whether her blood thinner would contribute to this drainage. Lovenox can contribute to that. We will continue to mobilize her out of bed, weightbearing as tolerated. I went over some simple exercises for her to do in bed. We will go ahead and apply a wound VAC and monitor closely. Await placement. Job ID: [id number]
--- NOTE | 2021-05-26 17:59 | Billing Data ---
Date of Service May 26, 2021 Coding Level of Care Code 81793 Subseq Hosp Care Lvl 2
[2021-05-26] MEDS: EZETIMIBE/SIMVASTATIN 10/40MG 1 TAB TAB PO SCH (20:25)
[2021-05-26] MEDS: DOCUSATE SODIUM/SENNA 50/8.6MG TAB PO SCH (20:25)
[2021-05-27] MEDS: ACETAMINOPHEN 500 MG TAB PO SCH ×3 (05:18→20:58)
[2021-05-27] MEDS: METOPROLOL TARTRATE 25 MG TAB PO SCH ×2 (07:26→20:47)
[2021-05-27] MEDS: ASPIRIN 81 MG ECTAB PO SCH (07:26)
[2021-05-27] MEDS: ISOSORBIDE MONO EXTENDED REL 30 MG TABCR PO SCH (07:27)
[2021-05-27] MEDS: CALCIUM 600MG + VIT D 400 IU TAB PO SCH (07:27)
[2021-05-27] MEDS: allopurinoL 300 MG TAB PO SCH (07:27)
[2021-05-27 07:49] LABS: Hematocrit (blood only) 27.5 % (37-47); Hemoglobin 8.8 g/dL (12.0-16.0); Mean Corpuscular Volume 96.8 fL (80-100); Mean Platelet Volume 9.5 fL (7.4-10.4); Nucleated RBC # (auto) 0.05 K/uL (0-0); Nucleated RBC % (auto) 0.5 %; Platelet Count 192 K/uL (130-400); RDW Coefficient of Variation 15.7 % (11.5-14.5); RDW Standard Deviation 52.8 fL (36.4-46.3); Red Blood Count 2.84 M/uL (4.2-5.4); White Blood Count 9.08 K/uL (4.8-10.8)
[2021-05-27 08:17] LABS: Basophils # (auto) 0.04 K/uL (0-0.2); Basophils % (auto) 0.4 %; Eosinophils # (auto) 0.21 K/uL (0-0.5); Eosinophils % (auto) 2.3 %; Immature Granulocytes # (auto) 0.77 K/uL (0.00-0.02); Immature Granulocytes % (auto) 8.5 %; Lymphocytes # (auto) 1.21 K/uL (1.2-3.4); Lymphocytes % (auto) 13.3 %; Monocytes # (auto) 1.51 K/uL (0.11-0.59); Monocytes % (auto) 16.6 %; Neutrophils # (auto) 5.34 K/uL (1.4-6.5); Neutrophils % (auto) 58.9 %
[2021-05-27 08:30] LABS: BUN Creatinine Ratio 23.2 (10-20); Calcium 8.5 mg/dl (8.5-10.1); Creatinine Clr Calc Pharmacy 50.2 ml/min; Est GFR (African American) 76.2 ml/min; Est GFR (Non-African American) 65.7 ml/min; Magnesium 1.8 mg/dl (1.8-2.4); Potassium 4.6 mmol/L (3.5-5.1)
[2021-05-27] MEDS ORDERED: MAGNESIUM SULFATE / D5W 1 GM/100 ML BAG IV ONE (08:45)
--- NOTE | 2021-05-27 09:44 | Hospitalist Progress Note ---
Date of Service May 27, 2021 Assessment & Plan (1) Closed intertrochanteric fracture of femur: Plan: Barb Mata is an 85yo female with PMHx of CAD, ischemic cardiomyopathy, s/p PPM, paroxysmal a-fib (on Eliquis), CKDIII, HTN, HLD, gout and bilateral SNHL who was admitted to [facility] on 05/19 due to right closed/displced intertrochanteric femoral fracture s/p mechanical fall. Right Closed/Displaced Intertrochanteric Femoral Fracture, POD 6 Internal Fixation S/p mechanical fall, confirmed via XR. Likely 2/2 osteoporosis. - Orthopedic Surgery consulted - appreciate recs - scant bloody drainage from incision overnight - will hold Eliquis for today and re-assess tomorrow - continue PRN graduated pain regimen with Tylenol/[place]/Dilaudid - continue Vitamin D/Calcium supplement - PT/OT consulted - recommend inpt rehab - insurance denied rehab via [id number] - family in process of appealing decision - encourage incentive spirometry - consider outpatient DEXA (per PCP) Acute Normocytic Anemia Baseline Hgb 12.4, down to 7.2 on 05/21. Suspect due to hip fx and intra- operative blood loss. Remains relatively stable in 8s, s/p 2 units pRBCs on 05/21. - monitor CBC daily - transfuse for Hgb <8 (h/o CAD) Thrombocytopenia, resolved Appeared chronic on admission, but plts continuing to increase over last couple days; plts 192 today. Peripheral smear unremarkable. - continue to monitor daily - no further eval/management at this time IGNACIO, resolved Baseline 1.0-1.1. Initially worsening despite mIVFs and RBC infusions. FENa 0.5, no signs of intra-renal pathology or obstruction per US kidneys/bladder. Suspect pre-renal injury due to post-contrast nephropathy as well as perioperative blood loss/fluid shifts. Cr improved to 0.9 today. - stopped IVFs on 05/23 - monitor BMP daily Hyperkalemia, resolved K 5.3 --> 4.7 today. May have been due to recently resolved IGNACIO as well as lack of BMs until ~24 hours ago. Patient asymptomatic. - monitor BMP daily Hypotension, resolved Resolved s/p RBC transfusions 05/21 and IVFs. Now normotensive/stable. - continue home Imdur - continue home dose Lopressor Paroxysmal Atrial Fibrillation Patient is paced in the 80s this morning (up from 60s throughout most of hospitalization) - held Eliquis starting at 05/26 PM dose, for scant drainage from R hip incision - will re-start on 05/28 PM - increase Lopressor back to home dose CAD/HTN/Ischemic Cardiomyopathy - TTE on 05/20 with EF 50-55% - continue Aspirin and Imdur HLD - continue home Ezetimibe/Simvastatin Gout - continue home Allopurinol FEN/GI: heart-healthy diet DVT Prophylaxis: SCDs, continue to hold Eliquis today as mentioned above (re- start tomorrow PM) Code Status: full code Disposition: med/surg, CM to assist with rehab placement (family appealing insurance rejection of rehab) (2) Fall: (3) Ischemic cardiomyopathy: (4) CAD (coronary artery disease): (5) Paroxysmal atrial fibrillation: (6) Chronic kidney disease, stage 3: (7) Hypertension: (8) Postsurgical cardiac pacemaker in situ: (9) Gout: (10) Hyperlipidemia: (11) Sensorineural hearing loss (SNHL) of both ears: (12) Vitamin D deficiency: Admission and Anticipated Discharge Date Admission Date: May 19, 2021 Supervising Physician Co-Signing Physician Notes I personally examined the patient and verified all clark points of history and exam, discussed case, and agree with decision making with Dr Andrews trying to get around better, doing better overall, still needs assistance. rehab denied by insurance via pre peer to peer. Vitals noted, in general she is awake and alert pleasant no distress. HEENT normocephalic atraumatic mucous membranes moist. Breathing unlabored no accessory muscle use good effort. Skin shows no rashes no pallor or icterus. vac drain present on leg now. Intertrochanteric femur fractureprobably osteoporoticpostop and doing well. PT/OT eval and treat, outpatient bone health work-up, see below under dispo. Presumed osteoporosisoutpatient bone health work-up and treatment AKIresolved Acute blood loss anemiarelated to femur fractureoverall stable. hemodynamically stable. follow Thrombocytopeniaoutpatient follow-up dispo - would be most appropriate for rehab, denied in pre peer to peer. ap pears that reviewing provider determined that 3hrs of PT would be too much for patient to tolerate, although with how she is doing with therapy i am not entirely clear how this could be concluded. i vehemently disagree with this denial and believe that she would be best served at a rehab facility where she could get more intensive therapy and maximize her potential, and believe that this insurance company decision compromises her care in ways we are unable to remedy. because of this i am hopeful that the family appeal results an an overturning of this poor decision. at the same time case management has set things in motion for possible subacute rehab at snf vs setting up support at home for an eventual discharge home - neither of which are optimal for the patient situation but given that we have no true recourse to the insurance decision will be plans for the best outcome we have the ability to afford. either way, the insurance company denial of what appears, to those of us actuall y taking care of her, to be totally reasonable and appropriate rehab services for recovery from a hip fracture has at the very least put her in potential harm's way be further lengthening her stay (which was already lengthened by days due to insurance company taking an excessively long time to even offer this denial, given that case management set things in motion for disposition on 05/21) and delaying any kind of more intensive rehab care than we are able to provide in an acute inpatient hospital. Unconscionably, the insurance company also appears to be choosing to abuse their monopolistic power in this current situation by taking an inordinate amount of time to reply to son's family appeal, given that the patient is still acutely in the hospital risking further deconditioning and nosocomial infection. these questionable decisions and delays in care on the part of insurance are decidedly increasing her risk of suboptimal outcomes or increased morbidity, and they are doing so for purposes (hip fracture recovery) that have a long standing historical precedent of being entirely rehab-appropriate. Otherwise as above Subjective No acute events overnight. Minimal serous drainage via wound vac over R hip overnight. Patient reports feeling well overall today. Understands that her family is in process of appealing questionable denial by insurance company for rehab. Denies fever/chills, chest pain, palpitations, SOB, cough, N/V, abdominal pain, rash. Review of Systems Review of Systems: All systems reviewed & are unremarkable except as noted in HPI & below Physical Exam Physical Exam: General: A&Ox3. NAD. Cooperative. HEENT: Atraumatic, normocephalic. Pulm: CTAB A&P. -wheezes, -rales, -rhonchi. Symmetrical chest rise. No increase work of breathing. No respiratory distress. Cardiac: RRR, -mrg. Radial pulses intact and symmetrical. No LE edema. Abdominal: soft, non-tender, non-distended, BS x 4 Skin: warm, dry, no rash, right hip with dressing c/d/i Results & Data Results & Data ([facility]) Vital Signs (Past 12 Hours) Vital Signs Temp Pulse Resp BP Pulse Ox 05/27/21 08:06 36.6 C 88 16 128/76 96 05/26/21 22:43 37.0 C 88 16 132/78 96 Resident Activity Tracking Resident Involvement: Resident Care Provided Care Provided: Adult Hospital Medicine (1) Closed intertrochanteric fracture of femur Encounter type: initial encounter Fracture alignment: displaced Laterality: right Qualified Code(s): S72.141A - Displaced intertrochanteric fracture of right femur, initial encounter for closed fracture (2) Fall Encounter type: initial encounter Qualified Code(s): W19.XXXA - Unspecified fall, initial encounter
--- NOTE | 2021-05-27 17:10 | Billing Data ---
Date of Service May 27, 2021 Coding Level of Care Code 68524 Subseq Hosp Care Lvl 2
[2021-05-27] MEDS: EZETIMIBE/SIMVASTATIN 10/40MG 1 TAB TAB PO SCH (20:47)
[2021-05-27] MEDS: DOCUSATE SODIUM/SENNA 50/8.6MG TAB PO SCH (20:48)
[2021-05-28] MEDS: HYDROCODONE/ACETAMOPHEN 5/325MG TAB PO PRN ×2 (03:48→23:32)
[2021-05-28] MEDS: ACETAMINOPHEN 500 MG TAB PO SCH ×3 (05:53→21:43)
[2021-05-28 06:58] LABS: Hemoglobin 8.3 g/dL (12.0-16.0); Mean Corpuscular Hemoglobin 30.7 pg (25-34); Mean Corpuscular Hgb Conc 31.9 g/dL (32-36); Mean Corpuscular Volume 96.3 fL (80-100); Nucleated RBC # (auto) 0.05 K/uL (0-0); Nucleated RBC % (auto) 0.6 %; Platelet Count 197 K/uL (130-400); RDW Coefficient of Variation 16.4 % (11.5-14.5); White Blood Count 7.92 K/uL (4.8-10.8)
[2021-05-28 07:20] LABS: Basophils # (auto) 0.02 K/uL (0-0.2); Basophils % (auto) 0.3 %; Eosinophils # (auto) 0.17 K/uL (0-0.5); Eosinophils % (auto) 2.1 %; Immature Granulocytes # (auto) 0.58 K/uL (0.00-0.02); Immature Granulocytes % (auto) 7.3 %; Lymphocytes % (auto) 17.7 %; Monocytes # (auto) 1.23 K/uL (0.11-0.59); Monocytes % (auto) 15.5 %; Neutrophils # (auto) 4.52 K/uL (1.4-6.5); Neutrophils % (auto) 57.1 %
[2021-05-28 07:32] LABS: BUN Creatinine Ratio 22.7 (10-20); Calcium 8.3 mg/dl (8.5-10.1); Creatinine Clr Calc Pharmacy 54.1 ml/min; Est GFR (African American) 83.5 ml/min; Magnesium 1.7 mg/dl (1.8-2.4); Potassium 4.2 mmol/L (3.5-5.1)
[2021-05-28] MEDS: METOPROLOL TARTRATE 25 MG TAB PO SCH ×2 (09:53→20:15)
[2021-05-28] MEDS: CALCIUM 600MG + VIT D 400 IU TAB PO SCH (09:53)
[2021-05-28] MEDS: ASPIRIN 81 MG ECTAB PO SCH (09:53)
[2021-05-28] MEDS: ISOSORBIDE MONO EXTENDED REL 30 MG TABCR PO SCH (09:53)
[2021-05-28] MEDS: allopurinoL 300 MG TAB PO SCH (09:53)
--- NOTE | 2021-05-28 09:56 | Orthopedic Progress Note ---
Date of Service May 28, 2021 Assessment & Plan (1) S/P ORIF (open reduction internal fixation) fracture: Plan: POD 7 - ORIF right hip fracture Continue out of bed, with assistance Ice PRN swelling of hip and thigh Elevate right lower extremity as needed for pain/swelling. She may weight bear as tolerated right lower extremity. No hip precautions of right hip necessary. May do active ROM of all lower extremities. Use walker to assist with ambulation. Continue TEDs stocking for DVT prophylaxis. Eliquis - currently on hold for DVT prophylaxis. Prevena incisional vac in place, but removed today, still has some serousanguinous drainage from incision, just a few drops with dressing off, drainage in wound vac canister. Prevena wound vac reapplied. Will discuss findings with Dr. Dahl. Follow up as scheduled, continue prevena vac until her next appointment (unless issues with it). Discharge instructions provided if discharged. Admission and Anticipated Discharge Date Admission Date: May 19, 2021 Subjective Patient sitting in chair, doing well. Prevena in place, not bothering patient, no issues with the incisional vac. No pain right hip with rest, but pain with movement right hip. Physical Exam Musculoskeletal: Right hip incision surrounding ecchymosis around incisions, incisions intact with retained giovana. No surrounding hematoma or seroma. Skin/tissue is soft. Mild active serous drainage from incision once Prevena removed, no purulence. Tolerates gentle active and passive ROM of right knee, hip and ankle. Distal sensation is normal. Minimal distal edema in lower leg. Able to actively straighten her right knee from sitting position. Able to stand comfortably with walker. New Prevena reapplied. Results & Data ([facility]) Vital Signs (Past 12 Hours) Vital Signs Temp Pulse Resp BP Pulse Ox 05/28/21 08:43 36.5 C 80 16 145/80 H 97 05/27/21 22:26 36.8 C 76 18 124/72 97 Laboratory Results 05/28/21 05/28/21 Range/Units 06:26 06:26 WBC 7.92 (4.8-10.8) K/uL RBC 2.70 L (4.2-5.4) M/uL Hgb 8.3 L (12.0-16.0) g/dL Hct 26.0 L (37-47) % MCV 96.3 (80-100) fL MCH 30.7 (25-34) pg MCHC 31.9 L (32-36) g/dL RDW Std Deviation 52.0 H (36.4-46.3) fL RDW Coeff of Debby 16.4 H (11.5-14.5) % Plt Count 197 (130-400) K/uL MPV 9.0 (7.4-10.4) fL Immature Gran % (Auto) 7.3 % Neut % (Auto) 57.1 % Lymph % (Auto) 17.7 % [place] % (Auto) 15.5 % Eos % (Auto) 2.1 % Baso % (Auto) 0.3 % Neut # (Auto) 4.52 (1.4-6.5) K/uL Lymph # (Auto) 1.40 (1.2-3.4) K/uL [place] # (Auto) 1.23 H (0.11-0.59) K/uL Eos # (Auto) 0.17 (0-0.5) K/uL Baso # (Auto) 0.02 (0-0.2) K/uL Immature Gran # (Auto) 0.58 H (0.00-0.02) K/uL Absolute Nucleated RBC 0.05 H (0-0) K/uL Nucleated RBC % (auto) 0.6 % Sodium 139 (136-145) mmol/L Potassium 4.2 (3.5-5.1) mmol/L Chloride 108 H (98-107) mmol/L Carbon Dioxide 31 (21-32) mmol/L Anion Gap 0 L (3-11) BUN 17 (7-18) mg/dl Creatinine 0.76 (0.6-1.2) mg/dl Est Cr Clr Drug Dosing 54.1 ml/min Est GFR ( Amer) 83.5 ml/min Est GFR (Non-Af Amer) 72.0 ml/min BUN/Creatinine Ratio 22.7 H (10-20) Glucose 95 (70-99) mg/dl Calcium 8.3 L (8.5-10.1) mg/dl Magnesium 1.7 L (1.8-2.4) mg/dl
[2021-05-28] MEDS: MAGNESIUM SULFATE / D5W 1 GM/100 ML BAG IV SCH ×2 (09:57→12:07)
--- NOTE | 2021-05-28 10:17 | Hospitalist Progress Note ---
Date of Service May 28, 2021 Assessment & Plan (1) Closed intertrochanteric fracture of femur: Plan: Barb Mata is an 85yo female with PMHx of CAD, ischemic cardiomyopathy, s/p PPM, paroxysmal a-fib (on Eliquis), CKDIII, HTN, HLD, gout and bilateral SNHL who was admitted to [facility] on 05/19 due to right closed/displced intertrochanteric femoral fracture s/p mechanical fall. Right Closed/Displaced Intertrochanteric Femoral Fracture, POD 7 Internal Fixation S/p mechanical fall, confirmed via XR. Likely 2/2 osteoporosis. - Orthopedic Surgery consulted - appreciate recs - scant bloody drainage from incision - Eliquis held x48 hours and will resume tonight - continue PRN graduated pain regimen with Tylenol/[place]/Dilaudid - continue Vitamin D/Calcium supplement - PT/OT consulted - recommend inpt rehab - insurance denied rehab via [id number] - family in process of appealing decision - encourage incentive spirometry - consider outpatient DEXA (per PCP) Acute Normocytic Anemia Baseline Hgb 12.4, down to 7.2 on 05/21. Suspect due to hip fx and intra- operative blood loss. Remains relatively stable in 8s, s/p 2 units pRBCs on 05/21. - monitor CBC daily - transfuse for Hgb <8 (h/o CAD) Thrombocytopenia, resolved Appeared chronic on admission, but plts continuing to increase over last couple days; plts 192 today. Peripheral smear unremarkable. - continue to monitor daily - no further eval/management at this time IGNACIO, resolved Baseline 1.0-1.1. Initially worsening despite mIVFs and RBC infusions. FENa 0.5, no signs of intra-renal pathology or obstruction per US kidneys/bladder. Suspect pre-renal injury due to post-contrast nephropathy as well as perioperative blood loss/fluid shifts. Cr improved to 0.9 today. - stopped IVFs on 05/23 - monitor BMP daily Paroxysmal Atrial Fibrillation Patient is paced in the 80s this morning (up from 60s throughout most of hospitalization) - held Eliquis starting at 10/12 PM dose, for scant drainage from R hip incision - will re-start tonight as stated above - continue home Lopressor CAD/HTN/Ischemic Cardiomyopathy - TTE on 05/20 with EF 50-55% - continue Aspirin and Imdur HLD - continue home Ezetimibe/Simvastatin Gout - continue home Allopurinol FEN/GI: heart-healthy diet DVT Prophylaxis: SCDs, resume [place] Code Status: full code Disposition: med/surg, CM to assist with rehab placement (family appealing insurance rejection of rehab) (2) Fall: (3) Ischemic cardiomyopathy: (4) CAD (coronary artery disease): (5) Paroxysmal atrial fibrillation: (6) Chronic kidney disease, stage 3: (7) Hypertension: (8) Postsurgical cardiac pacemaker in situ: (9) Gout: (10) Hyperlipidemia: (11) Sensorineural hearing loss (SNHL) of both ears: (12) Vitamin D deficiency: Admission and Anticipated Discharge Date Admission Date: May 19, 2021 Supervising Physician Co-Signing Physician Notes I personally examined the patient and verified all clark points of history and exam, discussed case, and agree with decision making with Dr Andrews continues to try to work as hard as she can with therapy, discussed with case managementhopefully will hear back from insurance today in regards to their decision regarding rehab, and it is my optimistic hope that they change their mind. Patient herself offers no new complaints today. Vitals noted, in general she is awake and alert pleasant no distress. HEENT normocephalic atraumatic mucous membranes moist. Breathing unlabored no accessory muscle use good effort. Skin shows no rashes no pallor or icterus. vac drain present on leg now. Intertrochanteric femur fractureprobably osteoporoticpostop and doing well. PT/OT eval and treat, outpatient bone health work-up, see below under dispo but would be stable for rehab. Presumed osteoporosisoutpatient bone health work-up and treatment AKIresolved Acute blood loss anemiarelated to femur fractureoverall stable. hemodynamically stable. followresume apixaban todaygiven that she has a little bit of drainage from the wound, but it seems to have slowed significantly, we will started 2.5, and escalate back to 5 mg twice daily if/as tolerated Thrombocytopeniaoutpatient follow-up dispo - would be most appropriate for rehab, denied in pre peer to peer. appears that reviewing provider determined that 3hrs of PT would be too much for patient to tolerate, although with how she is doing with therapy i am not entirely clear how this could be concluded. i vehemently disagree with this denial and believe that she would be best served at a rehab facility where she could get more intensive therapy and maximize her potential, and believe that this insurance company decision compromises her care in ways we are unable to remedy. because of this i am hopeful that the family appeal results an an overturning of this poor decision. at the same time case management has set things in motion for possible subacute rehab at snf vs setting up support at home for an eventual discharge home - neither of which are optimal for the patient situation but given that we have no true recourse to the insurance decision will be plans for the best outcome we have the ability to afford. either way, the insurance company denial of what appears, to those of us actually taking care of her, to be totally reasonable and appropriate rehab services for recovery from a hip fracture has at the very least put her in potential harm's way be further lengthening her stay (which was already lengthened by days due to insurance company taking an excessively long time to even offer this denial, given that case management set things in motion for disposition on 05/21) and delaying any kind of more intensive rehab care than we are able to provide in an acute inpatient hospital. Unconscionably, the insurance company also appears to be choosing to abuse their monopolistic power in this current situation by taking an inordinate amount of time to reply to son's family appeal, given that the patient is still acutely in the hospital risking further deconditioning and nosocomial infection. these questionable decisions and delays in care on the part of insurance are decidedly increasing her risk of suboptimal outcomes or increased morbidity, and they are doing so for purposes (hip fracture recovery) that have a long standing historical precedent of being entirely rehab-appropriate. Otherwise as above Subjective No acute events overnight. Minimal serous drainage via wound vac over R hip overnight. Wound vac removed this morning; scant serosanguinous drainage. Patient reports feeling well overall today. Understands that her family is in process of appealing questionable denial by insurance company for rehab. Review of Systems Review of Systems: All systems reviewed & are unremarkable except as noted in HPI & below Physical Exam Physical Exam: General: A&Ox3. NAD. Cooperative. HEENT: Atraumatic, normocephalic. Pulm: CTAB A&P. -wheezes, -rales, -rhonchi. Symmetrical chest rise. No increase work of breathing. No respiratory distress. Cardiac: RRR, -mrg. Radial pulses intact and symmetrical. No LE edema. Abdominal: soft, non-tender, non-distended, BS x 4 Skin: warm, dry, no rash, right hip with dressing c/d/i Results & Data Results & Data ([facility]) Vital Signs (Past 12 Hours) Vital Signs Temp Pulse Resp BP Pulse Ox 05/28/21 08:43 36.5 C 80 16 145/80 H 97 05/27/21 22:26 36.8 C 76 18 124/72 97 Resident Activity Tracking Resident Involvement: Resident Care Provided Care Provided: Adult Hospital Medicine (1) Closed intertrochanteric fracture of femur Encounter type: initial encounter Fracture alignment: displaced Laterality: right Qualified Code(s): S72.141A - Displaced intertrochanteric fracture of right femur, initial encounter for closed fracture (2) Fall Encounter type: initial encounter Qualified Code(s): W19.XXXA - Unspecified fall, initial encounter
--- NOTE | 2021-05-28 17:07 | Billing Data ---
Date of Service May 28, 2021 Coding Level of Care Code 96834 Subseq Hosp Care Lvl 2
[2021-05-28] MEDS: APIXABAN 2.5 MG TAB PO SCH (20:13)
[2021-05-28] MEDS: EZETIMIBE/SIMVASTATIN 10/40MG 1 TAB TAB PO SCH (20:13)
[2021-05-28] MEDS: DOCUSATE SODIUM/SENNA 50/8.6MG TAB PO SCH (20:16)
[2021-05-28 21:05] LABS: Appearance Urine Clear (Clear); Bacteria Urine Automated 1+ (Negative); Bilirubin Urine Negative (Negative); Blood Urine 1+ (Negative); Color Urine Yellow; Epithelial Cell Urine Auto >30 /lpf (0-5); Glucose Urine UA Negative (Negative); Ketones Urine Negative (Negative); Leukocyte Esterase Urine 2+ (Negative); Nitrite Urine Negative (Negative); Protein Urine Negative (Negative); Specific Gravity Urine 1.009 (1.000-1.030); Urobilinogen Urine Negative (Negative)
[2021-05-29 06:14] LABS: Basophils # (auto) 0.03 K/uL (0-0.2); Basophils % (auto) 0.4 %; Eosinophils # (auto) 0.15 K/uL (0-0.5); Hematocrit (blood only) 26.7 % (37-47); Hemoglobin 8.5 g/dL (12.0-16.0); Immature Granulocytes # (auto) 0.32 K/uL (0.00-0.02); Immature Granulocytes % (auto) 4.3 %; Lymphocytes # (auto) 1.14 K/uL (1.2-3.4); Lymphocytes % (auto) 15.4 %; Mean Corpuscular Hemoglobin 31.3 pg (25-34); Mean Corpuscular Hgb Conc 31.8 g/dL (32-36); Mean Corpuscular Volume 98.2 fL (80-100); Mean Platelet Volume 8.8 fL (7.4-10.4); Monocytes # (auto) 1.07 K/uL (0.11-0.59); Monocytes % (auto) 14.5 %; Neutrophils # (auto) 4.67 K/uL (1.4-6.5); Neutrophils % (auto) 63.4 %; Platelet Count 186 K/uL (130-400); RDW Standard Deviation 54.3 fL (36.4-46.3); Red Blood Count 2.72 M/uL (4.2-5.4); White Blood Count 7.38 K/uL (4.8-10.8)
[2021-05-29] MEDS: ACETAMINOPHEN 500 MG TAB PO SCH ×3 (06:44→22:18)
[2021-05-29 06:48] LABS: BUN Creatinine Ratio 21.2 (10-20); Calcium 8.3 mg/dl (8.5-10.1); Creatinine Clr Calc Pharmacy 52.1 ml/min; Est GFR (African American) 79.7 ml/min; Est GFR (Non-African American) 68.7 ml/min; Magnesium 1.8 mg/dl (1.8-2.4); Potassium 4.3 mmol/L (3.5-5.1)
[2021-05-29] MEDS: HYDROCODONE/ACETAMOPHEN 5/325MG TAB PO PRN ×2 (08:41→18:25)
[2021-05-29] MEDS: allopurinoL 300 MG TAB PO SCH (08:41)
[2021-05-29] MEDS: CALCIUM 600MG + VIT D 400 IU TAB PO SCH (08:41)
[2021-05-29] MEDS: ASPIRIN 81 MG ECTAB PO SCH (08:41)
[2021-05-29] MEDS: ISOSORBIDE MONO EXTENDED REL 30 MG TABCR PO SCH (08:41)
[2021-05-29] MEDS: APIXABAN 2.5 MG TAB PO SCH ×2 (08:41→20:14)
[2021-05-29] MEDS: METOPROLOL TARTRATE 25 MG TAB PO SCH ×2 (08:42→20:16)
--- NOTE | 2021-05-29 08:58 | Hospitalist Progress Note ---
Date of Service May 29, 2021 Assessment & Plan (1) Closed intertrochanteric fracture of femur: Plan: Barb Mata is an 85yo female with PMHx of CAD, ischemic cardiomyopathy, s/p PPM, paroxysmal a-fib (on Eliquis), CKDIII, HTN, HLD, gout and bilateral SNHL who was admitted to [facility] on 05/19 due to right closed/displced intertrochanteric femoral fracture s/p mechanical fall. Right Closed/Displaced Intertrochanteric Femoral Fracture, POD 8 Internal Fixation S/p mechanical fall, confirmed via XR. Likely 2/2 osteoporosis. - Orthopedic Surgery consulted - appreciate recs - scant bloody drainage from incision - Eliquis held x48 hours and will resume tonight - continue PRN graduated pain regimen with Tylenol/Midnight/Dilaudid - continue Vitamin D/Calcium supplement - PT/OT consulted - recommend inpt rehab - insurance denied rehab via [id number] - family in process of appealing decision - encourage incentive spirometry - consider outpatient DEXA (per PCP) Asymptomatic Bacteriuria Patient asymptomatic but Urine cx on 05/28 growing gram-negative bacilli. - no treatment indicated for now, given asymptomatic - monitor clinically for symptoms; monitor CBC daily Acute Normocytic Anemia Baseline Hgb 12.4, down to 7.2 on 05/21. Suspect due to hip fx and intra- operative blood loss. Remains relatively stable in 8s, s/p 2 units pRBCs on 05/21. - monitor CBC daily - transfuse for Hgb <8 (h/o CAD) Thrombocytopenia, resolved Appeared chronic on admission, but plts continuing to increase over last couple days; plts 192 today. Peripheral smear unremarkable. - continue to monitor daily - no further eval/management at this time IGNACIO on CKDIII, IGNACIO resolved Baseline 1.0-1.1. Initially worsening despite mIVFs and RBC infusions. FENa 0.5, no signs of intra-renal pathology or obstruction per US kidneys/bladder. Suspect pre-renal injury due to post-contrast nephropathy as well as perioperative blood loss/fluid shifts. Cr improved to 0.9 today. - stopped IVFs on 05/23 - monitor BMP daily Paroxysmal Atrial Fibrillation Patient is paced in 60s-70s. - continue Eliquis at reduced dosin.5mg PO BID - continue home Lopressor CAD/HTN/Ischemic Cardiomyopathy - TTE on 05/20 with EF 50-55% - continue Aspirin and Imdur HLD - continue home Ezetimibe/Simvastatin Gout - continue home Allopurinol FEN/GI: heart-healthy diet DVT Prophylaxis: SCDs, Eliquis 2.5mg PO BID Code Status: full code Disposition: med/surg, CM to assist with rehab placement (family appealing insurance rejection of rehab) (2) Fall: (3) Ischemic cardiomyopathy: (4) CAD (coronary artery disease): (5) Paroxysmal atrial fibrillation: (6) Chronic kidney disease, stage 3: (7) Hypertension: (8) Postsurgical cardiac pacemaker in situ: (9) Gout: (10) Hyperlipidemia: (11) Sensorineural hearing loss (SNHL) of both ears: (12) Vitamin D deficiency: Admission and Anticipated Discharge Date Admission Date: May 19, 2021 Supervising Physician Co-Signing Physician Notes I personally examined the patient and verified all clark points of history and exam, discussed case, and agree with decision making with Dr Andrews walking in hall w therapy. slow steady w walker. no new complaints otherwise. still haven't heard from insurance Vitals noted, in general she is awake and alert pleasant no distress. HEENT normocephalic atraumatic mucous membranes moist. Breathing unlabored no accessory muscle use good effort. Skin shows no rashes no pallor or icterus. vac drain present on leg now. Intertrochanteric femur fractureprobably osteoporoticpostop and doing well. PT/OT eval and treat, outpatient bone health work-up, see below under dispo, ideally for rehab Presumed osteoporosisoutpatient bone health work-up and treatment AKIresolved Acute blood loss anemiarelated to femur fractureoverall stable. hemodynamically stable. followresume apixaban todaygiven that she has a little bit of drainage from the wound, but it seems to have slowed significantly, resumed eliquis and still stable Thrombocytopeniaoutpatient follow-up dispo - would be most appropriate for rehab, denied in pre peer to peer. appears that reviewing provider determined that 3hrs of PT would be too much for patient to tolerate, although with how she is doing with therapy i am not entirely clear how this could be concluded. i vehemently disagree with this denial and believe that she would be best served at a rehab facility where she could get more intensive therapy and maximize her potential, and believe that this insurance company decision compromises her care in ways we are unable to remedy. because of this i am hopeful that the family appeal results an an overturning of this poor decision. at the same time case management has set things in motion for possible subacute rehab at snf vs setting up support at home for an eventual discharge home - neither of which are optimal for the patient situation but given that we have no true recourse to the insurance decision will be plans for the best outcome we have the ability to afford. either way, the insurance company denial of what appears, to those of us actually taking care of her, to be totally reasonable and appropriate rehab services for recovery from a hip fracture has at the very least put her in potential harm's way be further lengthening her stay (which was already lengthened by days due to insurance company taking an excessively long time to even offer this denial, given that case management set things in motion for disposition on 05/21) and delaying any kind of more intensive rehab care than we are able to provide in an acute inpatient hospital. Unconscionably, the insurance company also appears to be choosing to abuse their monopolistic power in this current situation by taking an inordinate amount of time to reply to son's family appeal, given that the patient is still acutely in the hospital risking further deconditioning and nosocomial infection. these questionable decisions and delays in care on the part of insurance are decidedly increasing her risk of suboptimal outcomes or increased morbidity, and they are doing so for purposes (hip fracture recovery) that have a long standing historical precedent of being entirely rehab-appropriate. Otherwise as above Subjective No acute events overnight. Minimal serous drainage via wound vac over R hip overnight. Wound vac removed this morning; scant serosanguinous drainage. Patient reports feeling well overall today. Understands that her family is in process of appealing questionable denial by insurance company for rehab. Review of Systems Review of Systems: All systems reviewed & are unremarkable except as noted in HPI & below Physical Exam Physical Exam: General: A&Ox3. NAD. Cooperative. HEENT: Atraumatic, normocephalic. Pulm: CTAB A&P. -wheezes, -rales, -rhonchi. Symmetrical chest rise. No increase work of breathing. No respiratory distress. Cardiac: RRR, -mrg. Radial pulses intact and symmetrical. No LE edema. Abdominal: soft, non-tender, non-distended, BS x 4 Skin: warm, dry, no rash, right hip with dressing c/d/i Results & Data Results & Data ([facility]) Vital Signs (Past 12 Hours) Vital Signs Temp Pulse Pulse Resp BP Pulse Ox 05/29/21 06:27 36.5 C 74 16 134/80 98 05/28/21 22:11 36.8 C 85 16 130/79 94 Resident Activity Tracking Resident Involvement: Resident Care Provided Care Provided: Adult Hospital Medicine (1) Closed intertrochanteric fracture of femur Encounter type: initial encounter Fracture alignment: displaced Laterality: right Qualified Code(s): S72.141A - Displaced intertrochanteric fracture of right femur, initial encounter for closed fracture (2) Fall Encounter type: initial encounter Qualified Code(s): W19.XXXA - Unspecified fall, initial encounter
--- NOTE | 2021-05-29 18:39 | Billing Data ---
Date of Service May 29, 2021 Coding Level of Care Code 39432 Subseq Hosp Care Lvl 2
[2021-05-29] MEDS: DOCUSATE SODIUM/SENNA 50/8.6MG TAB PO SCH (20:16)
[2021-05-29] MEDS: EZETIMIBE/SIMVASTATIN 10/40MG 1 TAB TAB PO SCH (20:16)
[2021-05-30] MEDS: ACETAMINOPHEN 500 MG TAB PO SCH ×3 (06:18→21:27)
[2021-05-30 06:30] LABS: Basophils # (auto) 0.01 K/uL (0-0.2); Basophils % (auto) 0.1 %; Eosinophils # (auto) 0.16 K/uL (0-0.5); Eosinophils % (auto) 1.9 %; Hematocrit (blood only) 27.5 % (37-47); Hemoglobin 8.6 g/dL (12.0-16.0); Immature Granulocytes # (auto) 0.32 K/uL (0.00-0.02); Immature Granulocytes % (auto) 3.9 %; Lymphocytes # (auto) 1.16 K/uL (1.2-3.4); Mean Corpuscular Hemoglobin 31.2 pg (25-34); Mean Corpuscular Hgb Conc 31.3 g/dL (32-36); Mean Corpuscular Volume 99.6 fL (80-100); Mean Platelet Volume 9.1 fL (7.4-10.4); Monocytes # (auto) 1.29 K/uL (0.11-0.59); Monocytes % (auto) 15.6 %; Neutrophils # (auto) 5.32 K/uL (1.4-6.5); Neutrophils % (auto) 64.5 %; Platelet Count 198 K/uL (130-400); RDW Coefficient of Variation 17.7 % (11.5-14.5); RDW Standard Deviation 54.8 fL (36.4-46.3); Red Blood Count 2.76 M/uL (4.2-5.4); White Blood Count 8.26 K/uL (4.8-10.8)
[2021-05-30 06:59] LABS: BUN Creatinine Ratio 25.1 (10-20); Calcium 8.2 mg/dl (8.5-10.1); Est GFR (Non-African American) 63.8 ml/min; Magnesium 1.7 mg/dl (1.8-2.4); Potassium 4.4 mmol/L (3.5-5.1)
--- NOTE | 2021-05-30 07:56 | Hospitalist Progress Note ---
Date of Service May 30, 2021 Assessment & Plan (1) Closed intertrochanteric fracture of femur: Plan: Barb Mata is an 85yo female with PMHx of CAD, ischemic cardiomyopathy, s/p PPM, paroxysmal a-fib (on Eliquis), CKDIII, HTN, HLD, gout and bilateral SNHL who was admitted to [facility] on 05/19 due to right closed/displaced intertrochanteric femoral fracture s/p mechanical fall. Right Closed/Displaced Intertrochanteric Femoral Fracture, POD 9 Internal Fixation S/p mechanical fall, confirmed via XR. Likely 2/2 osteoporosis. - Orthopedic Surgery consulted - appreciate recs - scant bloody drainage from incision - Eliquis held x48 hours and resumed 05/29 PM - continue PRN graduated pain regimen with Tylenol/Abrams/Dilaudid - continue Vitamin D/Calcium supplement - PT/OT consulted - recommend inpt rehab - insurance denied rehab via [id number] - family in process of appealing decision - will continue dispo discussion w/ family - consider outpatient DEXA (per PCP) Acute UTI Patient initially thought to be asymptomatic but Urine cx on 05/28 growing 100k+CFU ecli resistant to amp, gentamicin, and Bactrim - on 05/30/21, patient noted that she had urinary frequency / nocturia 2 nights ago where she urinated ~5 times. Denies dysuria and the frequency has not returned - will treat w/ IV Rocephin while inpatient and transition to PO regimen - monitor clinically for symptoms; monitor CBC daily Acute Normocytic Anemia Baseline Hgb 12.4, down to 7.2 on 05/21. Suspect due to hip fx and intra- operative blood loss. Remains relatively stable in 8s, s/p 2 units pRBCs on 05/21. - monitor CBC daily - transfuse for Hgb <8 (h/o CAD) Thrombocytopenia, resolved Appeared chronic on admission, but plts continuing to increase over last couple days; plts 192 today. Peripheral smear unremarkable. - continue to monitor daily - no further eval/management at this time IGNACIO on CKDIII, IGNACIO resolved Baseline 1.0-1.1. Initially worsening despite mIVFs and RBC infusions. FENa 0.5, no signs of intra-renal pathology or obstruction per US kidneys/bladder. Suspect pre-renal injury due to post-contrast nephropathy as well as perioperative blood loss/fluid shifts. Cr improved - stopped IVFs on 05/23 - monitor BMP daily Paroxysmal Atrial Fibrillation Patient is paced in 60s-70s. - continue Eliquis at reduced dosin.5mg PO BID - continue home Lopressor CAD/HTN/Ischemic Cardiomyopathy - TTE on 05/20 with EF 50-55% - continue Aspirin and Imdur HLD - continue home Ezetimibe/Simvastatin Gout - continue home Allopurinol FEN/GI: heart-healthy diet DVT Prophylaxis: SCDs, Eliquis 2.5mg PO BID Code Status: full code Disposition: med/surg, CM to assist with rehab placement (family appealing insurance rejection of rehab) (2) Fall: (3) Ischemic cardiomyopathy: (4) CAD (coronary artery disease): (5) Paroxysmal atrial fibrillation: (6) Chronic kidney disease, stage 3: (7) Hypertension: (8) Postsurgical cardiac pacemaker in situ: (9) Gout: (10) Hyperlipidemia: (11) Sensorineural hearing loss (SNHL) of both ears: (12) Vitamin D deficiency: Admission and Anticipated Discharge Date Admission Date: May 19, 2021 Supervising Physician Co-Signing Physician Notes I personally examined the patient and verified all clark points of history and exam, discussed case, and agree with decision making with Dr Andrews Generally feeling about the same. No new complaints. Still awaiting any word from insurance. Vitals noted, in general she is awake and alert pleasant no distress. HEENT normocephalic atraumatic mucous membranes moist. Breathing unlabored no accessory muscle use good effort. Skin shows no rashes no pallor or icterus. vac drain present on leg now. Intertrochanteric femur fractureprobably osteoporoticpostop and doing well. PT/OT eval and treat, outpatient bone health work-up, see below under dispo, ideally for rehabbut discussed with patient that given it is unfortunately highly probable that insurance will denied their family appeal for rehab, and that subacute rehab at SNF has been an extremely long wait, and that home carries a risk of fall, but prolonged hospitalization carries risk of decond itioning and nosocomial infectionthat her insurance company is put her into a situation where there are really no good choices, only bad ones. Trying to help destill this down, i do find her viable options as waiting on rehab approval from insurance, with the upside being if it is approved she can go to what would be the most appropriate setting for recovery from her fracture, but will come with the risk of longer hospitalization and the risks inherent to that; working towards subacute rehab, but with the benefit of still getting more aggressive therapy and safety monitoring that she would not have at home, but with the risk of likely being in the hospital for more than likely another week; going home with home/outpatient therapythis would eliminate risk of deconditioning and nosocomial infection, but, with more risk of falls, and not having anybody besides family being able to assist with safety. I discussed quite frankly that I do not particularly like any of these 3 options, but that really she needs to weigh all 3 and discussed with her family. Presumed osteoporosisoutpatient bone health work-up and treatment AKIresolved Acute blood loss anemiarelated to femur fractureoverall stable. hemodynamically stable. followresume apixaban todaygiven that she has a little bit of drainage from the wound, but it seems to have slowed significantly, resumed eliquis and still stable Thrombocytopeniaoutpatient follow-up dispo - would be most appropriate for rehab, denied in pre peer to peer. appears that reviewing provider determined that 3hrs of PT would be too much for patient to tolerate, although with how she is doing with therapy i am not entirely clear how this could be concluded. i vehemently disagree with this denial and believe that she would be best served at a rehab facility where she could get more intensive therapy and maximize her potential, and believe that this insurance company decision compromises her care in ways we are unable to remedy. because of this i am hopeful that the family appeal results an an overturning of this poor decision. at the same time case management has set things in motion for possible subacute rehab at snf vs setting up support at home for an eventual discharge home - neither of which are optimal for the patient situation but given that we have no true recourse to the insurance decision will be plans for the best outcome we have the ability to afford. either way, the insurance company denial of what appears, to those of us actually taking care of her, to be totally reasonable and appropriate rehab services for recovery from a hip fracture has at the very least put her in potential harm's way be further lengthening her stay (which was already lengthened by days due to insurance company taking an excessively long time to even offer this denial, given that case management set things in motion for disp osition on 05/21) and delaying any kind of more intensive rehab care than we are able to provide in an acute inpatient hospital. Unconscionably, the insurance company also appears to be choosing to abuse their monopolistic power in this current situation by taking an inordinate amount of time to reply to son's family appeal, given that the patient is still acutely in the hospital risking further deconditioning and nosocomial infection. these questionable decisions and delays in care on the part of insurance are decidedly increasing her risk of suboptimal outcomes or increased morbidity, and they are doing so for purposes (hip fracture recovery) that have a long standing historical precedent of being entirely rehab-appropriate. Otherwise as above Subjective She had a BM this AM and feeling better. Still has hip pain when ambulating, but is ambulatory. Ate breakfast. + transient urinary freq 2 nights ago (5x during the night), resolved. Denies hx of UTI. Denies recent fatigue or weakness. PMHx pacemaker and stent on baby asa and eliquis. Review of Systems Review of Systems: All systems reviewed & are unremarkable except as noted in HPI & below Constitutional: Denies fever, chills, weight change Eyes: Denies blurry vision, vision changes ENT: Denies sore throat, sinus pain Cardiovascular: Denies chest pain, palpitations Respiratory: Denies shortness of breath Gastrointestinal: Denies abdominal pain, nausea, vomiting, constipation, diarrhea Genitourinary: + urinary freq 2 nights ago, resolved yesterday Musculoskeletal: Denies weakness, muscle aches/pain, joint aches/pain Neurological: Denies headache, numbness, tingling, focal weakness Physical Exam Physical Exam: General: Grossly A&O. NAD. Cooperative. HEENT: Atraumatic, normocephalic. EOMI Pulm: CTAB. -wheezes, -rales, -rhonchi. No respiratory distress. Cardiac: RRR, -mrg. Radial pulses intact and symmetrical. Abdominal: Nontender, nondistended, soft. Back: No CVA ttp. Integ: Small scabbed abrasion at R palm Msk: RLE strength at hip is weaker than left Results & Data Results & Data ([facility]) Vital Signs (Past 12 Hours) Vital Signs vitals reviewed Temp Pulse Pulse Resp BP Pulse Ox 05/29/21 23:01 36.5 C 72 18 109/67 98 05/29/21 20:13 88 110/69 Laboratory Results Hb stable 8.6. plts 198 stable. elev monos 1.29 stable. electrolytes reviewed. Cr 0.84. BUN/Cr 21.2->25.1. Mg 1.7L. Ca 8.2, no recent alb. No new imaging. 05/28 UC w/ eoli resis to amp, gent, bactrim. 520ml in 350ml out. 17L in 3L out 05/30/21 06:13 05/30/21 06:13 Resident Activity Tracking Resident Involvement: Resident Care Provided Care Provided: Adult Hospital Medicine (1) Closed intertrochanteric fracture of femur Encounter type: initial encounter Fracture alignment: displaced Laterality: right Qualified Code(s): S72.141A - Displaced intertrochanteric fracture of right femur, initial encounter for closed fracture (2) Fall Encounter type: initial encounter Qualified Code(s): W19.XXXA - Unspecified fall, initial encounter
[2021-05-30] MEDS: ASPIRIN 81 MG ECTAB PO SCH (09:36)
[2021-05-30] MEDS: APIXABAN 2.5 MG TAB PO SCH ×2 (09:36→20:45)
[2021-05-30] MEDS: allopurinoL 300 MG TAB PO SCH (09:37)
[2021-05-30] MEDS: ISOSORBIDE MONO EXTENDED REL 30 MG TABCR PO SCH (09:37)
[2021-05-30] MEDS: METOPROLOL TARTRATE 25 MG TAB PO SCH ×2 (09:37→20:45)
[2021-05-30] MEDS: CALCIUM 600MG + VIT D 400 IU TAB PO SCH (09:37)
[2021-05-30] MEDS: MAGNESIUM SULFATE / D5W 1 GM/100 ML BAG IV SCH ×2 (10:35→13:27)
[2021-05-30] MEDS ORDERED: cefTRIAXone SODIUM 2,000 MG in DEXTROSE 5% 50 ML IV SCH (14:00)
--- NOTE | 2021-05-30 18:35 | Billing Data ---
Date of Service May 30, 2021 Coding Level of Care Code 54655 Subseq Hosp Care Lvl 2
[2021-05-30] MEDS: EZETIMIBE/SIMVASTATIN 10/40MG 1 TAB TAB PO SCH (20:45)
[2021-05-30] MEDS: DOCUSATE SODIUM/SENNA 50/8.6MG TAB PO SCH (20:47)
[2021-05-31] MEDS: ACETAMINOPHEN 500 MG TAB PO SCH ×3 (05:47→21:34)
--- NOTE | 2021-05-31 07:32 | Hospitalist Progress Note ---
Date of Service May 31, 2021 Assessment & Plan (1) Closed intertrochanteric fracture of femur: Plan: Barb Mata is an 85yo female with PMHx of CAD, ischemic cardiomyopathy, s/p PPM, paroxysmal a-fib (on Eliquis), CKDIII, HTN, HLD, gout and bilateral SNHL who was admitted to [facility] on 05/19 due to right closed/displaced intertrochanteric femoral fracture s/p mechanical fall. Right Closed/Displaced Intertrochanteric Femoral Fracture, POD 10 Internal Fixation S/p mechanical fall, confirmed via XR. Likely 2/2 osteoporosis. - Orthopedic Surgery consulted - appreciate recs - scant bloody drainage from incision - Eliquis held x48 hours and resumed 10/15 PM - continue PRN graduated pain regimen with Tylenol/Oxycodone - continue Vitamin D/Calcium supplement - PT/OT consulted - recommend inpt rehab - insurance denied family appeal of initial inpatient rehab rejection - other inpatient referrals have been made and are pending, per patient and family wishes - this inexplicable denial of inpatient rehab in a patient who is clearly worse than baseline functional status, after a right hip fracture and surgery, and has great rehab potential ONLY with aggressive inpatient rehab services, is placing her at risk for nosocomial infections, worse outcomes, and is jeopardizing her safety overall - consider outpatient DEXA (per PCP) UTI Patient initially thought to be asymptomatic but Urine cx on 05/28 growing 100k+CFU ecli resistant to amp, gentamicin, and Bactrim - started CTX IV on 05/30; will transition to Cefdinir 300mg PO BID x7 days total (day 09/21) - monitor CBC daily Acute Normocytic Anemia Baseline Hgb 12.4, down to 7.2 on 05/21. Suspect due to hip fx and intra- operative blood loss. Remains relatively stable in 8s, s/p 2 units pRBCs on 05/21. - monitor CBC daily - transfuse for Hgb <8 (h/o CAD) Thrombocytopenia, resolved Appeared chronic on admission, but plts continuing to increase over last couple days; plts 192 today. Peripheral smear unremarkable. - continue to monitor daily - no further eval/management at this time IGNACIO on CKDIII, IGNACIO resolved Baseline 1.0-1.1. Initially worsening despite mIVFs and RBC infusions. FENa 0.5, no signs of intra-renal pathology or obstruction per US kidneys/bladder. Suspect pre-renal injury due to post-contrast nephropathy as well as perioperative blood loss/fluid shifts. Cr improved - stopped IVFs on 05/23 - monitor BMP daily Paroxysmal Atrial Fibrillation Patient is paced in 60s-70s. - continue Eliquis at reduced dosin.5mg PO BID - continue home Lopressor CAD/HTN/Ischemic Cardiomyopathy - TTE on 05/20 with EF 50-55% - continue Aspirin and Imdur HLD - continue home Ezetimibe/Simvastatin Gout - continue home Allopurinol FEN/GI: heart-healthy diet DVT Prophylaxis: SCDs, Eliquis 2.5mg PO BID Code Status: full code Disposition: med/surg, CM to assist with rehab placement (new referrals made for inpatient rehab - pending) (2) Fall: (3) Ischemic cardiomyopathy: (4) CAD (coronary artery disease): (5) Paroxysmal atrial fibrillation: (6) Chronic kidney disease, stage 3: (7) Hypertension: (8) Postsurgical cardiac pacemaker in situ: (9) Gout: (10) Hyperlipidemia: (11) Sensorineural hearing loss (SNHL) of both ears: (12) Vitamin D deficiency: Admission and Anticipated Discharge Date Admission Date: May 19, 2021 Supervising Physician Co-Signing Physician Notes I personally examined the patient and verified all clark points of history and exam, discussed case, and agree with decision making with Dr Andrews Generally feeling about the same. No new complaints. Still awaiting any word from insurance. Continues to try to work hard with therapy, and do the best she can. Vitals noted, in general she is awake and alert pleasant no distress. HEENT normocephalic atraumatic mucous membranes moist. Breathing unlabored no accessory muscle use good effort. Skin shows no rashes no pallor or icterus. vac drain present on leg now. Intertrochanteric femur fractureprobably osteoporoticpostop and doing well. PT/OT eval and treat, outpatient bone health work-up, see below under dispo, ideally for rehabbut discussed with patient (more extensively yesterday, but reiterated today) that given it is unfortunately highly probable that insurance will denied their family appeal for rehab, and that subacute rehab at has been an extremely long wait, and that home carries a risk of fall, but prolonged hospitalization carries risk of deconditioning and nosocomial infectionthat her insurance company is put her into a situation where there are really no good choices, only bad ones. Trying to help distill this down, i do find her viable options as waiting on rehab approval from insurance, with the upside being if it is approved she can go to what would be the most appropriate setting for recovery from her fracture, but will come with the risk of longer hospitalization and the risks inherent to that; working towards subacute rehab, but with the benefit of still getting more aggressive therapy and safety monitoring that she would not have at home, but with the risk of likely being in the hospital for more than likely another week; going home with home/outpatient therapythis would eliminate risk of deconditioning and nosocomial infection, but, with more risk of falls, and not having anybody besides family being able to assist with safety. I discussed quite frankly that I do not particularly like any of these 3 options, but that really she needs to weigh all 3 and discussed with her family. Presumed osteoporosisoutpatient bone health work-up and treatment AKIresolved Acute blood loss anemiarelated to femur fractureoverall stable. hemodynamically stable. followcontinue apixaban Thrombocytopeniaoutpatient follow-up dispo - would be most appropriate for rehab, denied in pre peer to peer. appears that reviewing provider determined that 3hrs of PT would be too much for patient to tolerate, although with how she is doing with therapy i am not entirely clear how this could be concluded. i vehemently disagree with this denial and believe that she would be best served at a rehab facility where she could get more intensive therapy and maximize her potential, and believe that this insurance company decision compromises her care in ways we are unable to remedy. because of this i am hopeful that the family appeal results an an overturning of this poor decision. at the same time case management has set things in motion for possible subacute rehab at [facility] vs setting up support at home for an eventual discharge home - neither of which are optimal for the patient situation but given that we have no true recourse to the insurance decision will be plans for the best outcome we have the ability to afford. either way, the insurance company denial of what appears, to those of us actually taking care of her, to be totally reasonable and appropriate rehab services for recovery from a hip fracture has at the very least put her in potential harm's way be further lengthening her stay (which was already lengthened by days due to insurance company taking an excessively long time to even offer this denial, given that case management set things in motion for disposition on 05/21) and delaying any kind of more intensive rehab care than we are able to provide in an acute inpatient hospital. Unconscionably, the insurance company also appears to be choosing to abuse their monopolistic power in this current situation by taking an inordinate amount of time to reply to son's family appeal, given that the patient is still acutely in the hospital risking further deconditioning and nosocomial infection. these questionable decisions and delays in care on the part of insurance are decidedly increasing her risk of suboptimal outcomes or increased morbidity, and they are doing so for purposes (hip fracture recovery) that have a long standing historical precedent of being entirely rehab-appropriate. Otherwise as above Subjective No acute events overnight. Scant serous drainage via wound vac over R hip overnight. Patient reports feeling well overall today. Still wants to go to rehab (referrals in process). Denies fever/chills, chest pain, palpitations, SOB, cough, N/V, abdominal pain, rash. Review of Systems Review of Systems: All systems reviewed & are unremarkable except as noted in HPI & below Physical Exam Physical Exam: General: A&Ox3. NAD. Cooperative. HEENT: Atraumatic, normocephalic. Pulm: CTAB A&P. -wheezes, -rales, -rhonchi. Symmetrical chest rise. No increase work of breathing. No respiratory distress. Cardiac: RRR, -mrg. Radial pulses intact and symmetrical. No LE edema. Abdominal: soft, non-tender, non-distended, BS x 4 Skin: warm, dry, no rash, right hip with dressing c/d/i and wound vac intact Results & Data Results & Data ([facility]) Vital Signs (Past 12 Hours) Vital Signs Temp Pulse Pulse Resp BP Pulse Ox 05/31/21 00:00 36.5 C 77 16 121/76 98 05/30/21 20:43 80 128/75 Resident Activity Tracking Resident Involvement: Resident Care Provided Care Provided: Adult Hospital Medicine (1) Closed intertrochanteric fracture of femur Encounter type: initial encounter Fracture alignment: displaced Laterality: right Qualified Code(s): S72.141A - Displaced intertrochanteric fracture of right femur, initial encounter for closed fracture (2) Fall Encounter type: initial encounter Qualified Code(s): W19.XXXA - Unspecified fall, initial encounter
[2021-05-31] MEDS: MAGNESIUM SULFATE / D5W 1 GM/100 ML BAG IV SCH ×2 (08:35→10:18)
[2021-05-31] MEDS: allopurinoL 300 MG TAB PO SCH (10:13)
[2021-05-31] MEDS: ASPIRIN 81 MG ECTAB PO SCH (10:14)
[2021-05-31] MEDS: APIXABAN 2.5 MG TAB PO SCH ×2 (10:14→21:32)
[2021-05-31] MEDS: CALCIUM 600MG + VIT D 400 IU TAB PO SCH (10:14)
[2021-05-31] MEDS: ISOSORBIDE MONO EXTENDED REL 30 MG TABCR PO SCH (10:14)
[2021-05-31] MEDS: METOPROLOL TARTRATE 25 MG TAB PO SCH ×2 (10:15→21:33)
[2021-05-31] MEDS: CEFDINIR 300 MG CAP PO SCH ×2 (10:16→21:33)
--- NOTE | 2021-05-31 20:03 | Billing Data ---
Date of Service May 31, 2021 Coding Level of Care Code 31366 Subseq Hosp Care Lvl 2
[2021-05-31] MEDS: DOCUSATE SODIUM/SENNA 50/8.6MG TAB PO SCH (21:33)
[2021-05-31] MEDS: EZETIMIBE/SIMVASTATIN 10/40MG 1 TAB TAB PO SCH (21:33)
[2021-06-01] MEDS: ACETAMINOPHEN 500 MG TAB PO SCH ×3 (05:59→21:57)
[2021-06-01 06:38] LABS: Basophils # (auto) 0.03 K/uL (0-0.2); Basophils % (auto) 0.4 %; Eosinophils # (auto) 0.16 K/uL (0-0.5); Eosinophils % (auto) 1.9 %; Hematocrit (blood only) 27.1 % (37-47); Hemoglobin 8.5 g/dL (12.0-16.0); Immature Granulocytes # (auto) 0.07 K/uL (0.00-0.02); Immature Granulocytes % (auto) 0.9 %; Lymphocytes # (auto) 1.07 K/uL (1.2-3.4); Mean Corpuscular Hemoglobin 31.5 pg (25-34); Mean Corpuscular Hgb Conc 31.4 g/dL (32-36); Mean Corpuscular Volume 100.4 fL (80-100); Mean Platelet Volume 9.4 fL (7.4-10.4); Monocytes # (auto) 0.86 K/uL (0.11-0.59); Monocytes % (auto) 10.4 %; Neutrophils # (auto) 6.04 K/uL (1.4-6.5); Neutrophils % (auto) 73.4 %; Platelet Count 205 K/uL (130-400); RDW Coefficient of Variation 18.8 % (11.5-14.5); White Blood Count 8.23 K/uL (4.8-10.8)
[2021-06-01 07:08] LABS: BUN Creatinine Ratio 23.1 (10-20); Calcium 7.9 mg/dl (8.5-10.1); Creatinine Clr Calc Pharmacy 44.2 ml/min; Est GFR (African American) 65.4 ml/min; Est GFR (Non-African American) 56.4 ml/min; Potassium 4.4 mmol/L (3.5-5.1)
--- NOTE | 2021-06-01 08:18 | Hospitalist Progress Note ---
Date of Service June 01, 2021 Assessment & Plan (1) Closed intertrochanteric fracture of femur: Plan: Barb Mata is an 85yo female with PMHx of CAD, ischemic cardiomyopathy, s/p PPM, paroxysmal a-fib (on Eliquis), CKDIII, HTN, HLD, gout and bilateral SNHL who was admitted to [facility] on 05/19 due to right closed/displaced intertrochanteric femoral fracture s/p mechanical fall. Right Closed/Displaced Intertrochanteric Femoral Fracture, POD 11 Internal Fixation S/p mechanical fall, confirmed via XR. Likely 2/2 osteoporosis. - Orthopedic Surgery consulted - appreciate recs - scant bloody drainage from incision - Eliquis held x48 hours and resumed 10/15 PM - continue PRN graduated pain regimen with Tylenol/Oxycodone - continue Vitamin D/Calcium supplement - PT/OT consulted - recommend inpt rehab - insurance denied family appeal of initial inpatient rehab rejection - other inpatient referrals have been made and are pending, per patient and family wishes - this inexplicable denial of inpatient rehab in a patient who is clearly worse than baseline functional status, after a right hip fracture and surgery, and has great rehab potential ONLY with aggressive inpatient rehab services, is placing her at risk for nosocomial infections, worse outcomes, and is jeopardizing her safety overall - [employer] has reached out for further info regarding inpt rehab appeal by family, no further info at this time -- [facility] able to accept if appeal is denied - consider outpatient DEXA (per PCP) UTI Patient initially thought to be asymptomatic but Urine cx on 05/28 growing 100k+CFU ecli resistant to amp, gentamicin, and Bactrim - started CTX IV on 05/30 - 05/31: transition to Cefdinir 300mg PO BID x7 days total (day 3) - monitor CBC daily Acute Normocytic Anemia Baseline Hgb 12.4, down to 7.2 on 05/21. Suspect due to hip fx and intra- operative blood loss. Remains relatively stable in 8s, s/p 2 units pRBCs on 05/21. - monitor CBC daily - transfuse for Hgb <8 (h/o CAD) Thrombocytopenia, resolved Appeared chronic on admission, but plts continuing to increase over last couple days; plts 192 today. Peripheral smear unremarkable. - continue to monitor daily - no further eval/management at this time IGNACIO on CKDIII, IGNACIO resolved Baseline 1.0-1.1. Initially worsening despite mIVFs and RBC infusions. FENa 0.5, no signs of intra-renal pathology or obstruction per US kidneys/bladder. Suspect pre-renal injury due to post-contrast nephropathy as well as perioperative blood loss/fluid shifts. Cr improved - stopped IVFs on 05/23 - monitor BMP daily Paroxysmal Atrial Fibrillation Patient is paced in 60s-70s. - continue Eliquis at reduced dosin.5mg PO BID - continue home Lopressor CAD/HTN/Ischemic Cardiomyopathy - TTE on 05/20 with EF 50-55% - continue Aspirin and Imdur HLD - continue home Ezetimibe/Simvastatin Gout - continue home Allopurinol FEN/GI: heart-healthy diet DVT Prophylaxis: SCDs, Eliquis 2.5mg PO BID Code Status: full code Disposition: med/surg, CM to assist with rehab placement (new referrals made for inpatient rehab - pending) (2) Fall: (3) Ischemic cardiomyopathy: (4) CAD (coronary artery disease): (5) Paroxysmal atrial fibrillation: (6) Chronic kidney disease, stage 3: (7) Hypertension: (8) Postsurgical cardiac pacemaker in situ: (9) Gout: (10) Hyperlipidemia: (11) Sensorineural hearing loss (SNHL) of both ears: (12) Vitamin D deficiency: Admission and Anticipated Discharge Date Admission Date: May 19, 2021 Supervising Physician Co-Signing Physician Notes Resident Physician Supervision Note: I independently interviewed and examined the patient and verified the clark history and physical, reviewed labs and image studies and agree with resident Dr. Anna findings and care plan. Subjective No acute events overnight. Reports feeling well overall today. Pain well controlled. Denies fever/chills, chest pain, palpitations, SOB, cough, N/V, abdominal pain, rash. Review of Systems Review of Systems: Per subjective Physical Exam Physical Exam: General: A&Ox3. NAD. Cooperative. HEENT: Atraumatic, normocephalic. Pulm: CTAB A&P. -wheezes, -rales, -rhonchi. Symmetrical chest rise. No increase work of breathing. No respiratory distress. Cardiac: RRR, -mrg. Radial pulses intact and symmetrical. No LE edema. Abdominal: soft, non-tender, non-distended, BS x 4 Skin: warm, dry, no rash, right hip with dressing c/d/i and wound vac intact Results & Data Results & Data ([facility]) Vital Signs (Past 12 Hours) Vital Signs Temp Pulse Pulse Resp BP Pulse Ox 06/01/21 08:05 36.7 C 72 18 119/73 96 05/31/21 22:36 37.0 C 66 16 107/68 96 05/31/21 21:28 76 124/57 L Resident Activity Tracking Resident Involvement: Resident Care Provided Care Provided: Adult Hospital Medicine (1) Closed intertrochanteric fracture of femur Encounter type: initial encounter Fracture alignment: displaced Laterality: right Qualified Code(s): S72.141A - Displaced intertrochanteric fracture of right femur, initial encounter for closed fracture (2) Fall Encounter type: initial encounter Qualified Code(s): W19.XXXA - Unspecified fall, initial encounter
[2021-06-01] MEDS: CEFDINIR 300 MG CAP PO SCH ×2 (08:22→21:56)
[2021-06-01] MEDS: allopurinoL 300 MG TAB PO SCH (08:22)
[2021-06-01] MEDS: ISOSORBIDE MONO EXTENDED REL 30 MG TABCR PO SCH (08:22)
[2021-06-01] MEDS: ASPIRIN 81 MG ECTAB PO SCH (08:22)
[2021-06-01] MEDS: APIXABAN 2.5 MG TAB PO SCH ×2 (08:22→21:56)
[2021-06-01] MEDS: METOPROLOL TARTRATE 25 MG TAB PO SCH ×2 (08:22→21:56)
[2021-06-01] MEDS: CALCIUM 600MG + VIT D 400 IU TAB PO SCH (08:22)
--- NOTE | 2021-06-01 11:37 | Progress Notes ---
DATE OF SERVICE: 06/01/2021 The patient has not been able to be discharged yet because of lack of disposition due to multiple iss ues including insurance approval. Last note from case management indicates that they would still lik e shelter or rehab. Barb is feeling much better. Her pain is much better controlled. She is out of bed, sitting in her chair a lot and is doing physical therapy. She is neurovascularly intact. Her strength distally is normal. She is able to almost independently arise from her chair and position herself on the bed. Does require some assistance to get from sitt ing to lying. Has difficulty moving the leg. There is swelling distally. Her wound is benign. The re is no erythema and there is no drainage after removal of the VAC. She has no fluctuance. There i s some bruising posteriorly. She is afebrile. Her vital signs are stable. Her white count is normal, hemoglobin 9, hematocrit 27 . Her platelet count is 205. PLAN: Discontinue the wound VAC. We will use a dry dressing and monitor the wound. If things stay dry, then we will consider removing the giovana later this week. We went over some simple exercises. Orthopedically, she is stable. If she remains in the hospital longer, we will consider removing s taples and probably getting some x-rays. Continue the apixaban for DVT prophylaxis. Continue PT and OT. Her vitamin D level was normal. We will continue some vitamin D supplementation at a low dose. She will need DEXA scan and osteoporosis treatment if this is not currently done as an outpatient. Job ID: [id number]
[2021-06-01] MEDS: EZETIMIBE/SIMVASTATIN 10/40MG 1 TAB TAB PO SCH (21:56)
[2021-06-01] MEDS: DOCUSATE SODIUM/SENNA 50/8.6MG TAB PO SCH (21:57)
[2021-06-01] MEDS: oxyCODONE HCL IR 5 MG TAB (IMMEDIATE RELEASE) PO PRN (23:21)
[2021-06-02] MEDS: ACETAMINOPHEN 500 MG TAB PO SCH ×3 (06:15→21:58)
[2021-06-02 06:44] LABS: Basophils # (auto) 0.03 K/uL (0-0.2); Basophils % (auto) 0.3 %; Eosinophils # (auto) 0.15 K/uL (0-0.5); Eosinophils % (auto) 1.7 %; Hematocrit (blood only) 30.5 % (37-47); Hemoglobin 9.4 g/dL (12.0-16.0); Immature Granulocytes % (auto) 1.1 %; Lymphocytes # (auto) 1.51 K/uL (1.2-3.4); Lymphocytes % (auto) 17.2 %; Mean Corpuscular Hemoglobin 31.3 pg (25-34); Mean Corpuscular Hgb Conc 30.8 g/dL (32-36); Mean Corpuscular Volume 101.7 fL (80-100); Mean Platelet Volume 9.1 fL (7.4-10.4); Monocytes # (auto) 0.98 K/uL (0.11-0.59); Monocytes % (auto) 11.1 %; Neutrophils # (auto) 6.02 K/uL (1.4-6.5); Neutrophils % (auto) 68.6 %; Platelet Count 225 K/uL (130-400); RDW Coefficient of Variation 19.1 % (11.5-14.5); RDW Standard Deviation 68.9 fL (36.4-46.3); White Blood Count 8.79 K/uL (4.8-10.8)
[2021-06-02 07:36] LABS: BUN Creatinine Ratio 24.1 (10-20); Calcium 8.2 mg/dl (8.5-10.1); Creatinine Clr Calc Pharmacy 42.8 ml/min; Est GFR (African American) 62.9 ml/min; Est GFR (Non-African American) 54.3 ml/min; Potassium 4.2 mmol/L (3.5-5.1)
[2021-06-02] MEDS: allopurinoL 300 MG TAB PO SCH (10:23)
[2021-06-02] MEDS: ASPIRIN 81 MG ECTAB PO SCH (10:25)
[2021-06-02] MEDS: CALCIUM 600MG + VIT D 400 IU TAB PO SCH (10:25)
[2021-06-02] MEDS: CEFDINIR 300 MG CAP PO SCH ×2 (10:25→21:56)
[2021-06-02] MEDS: APIXABAN 2.5 MG TAB PO SCH ×2 (10:25→21:55)
[2021-06-02] MEDS: ISOSORBIDE MONO EXTENDED REL 30 MG TABCR PO SCH (10:26)
[2021-06-02] MEDS: METOPROLOL TARTRATE 25 MG TAB PO SCH ×2 (10:26→21:56)
--- NOTE | 2021-06-02 10:47 | Hospitalist Progress Note ---
Date of Service June 02, 2021 Assessment & Plan (1) Closed intertrochanteric fracture of femur: Plan: Barb Mata is an 85yo female with PMHx of CAD, ischemic cardiomyopathy, s/p PPM, paroxysmal a-fib (on Eliquis), CKDIII, HTN, HLD, gout and bilateral SNHL who was admitted to [facility] on 05/19 due to right closed/displaced intertrochanteric femoral fracture s/p mechanical fall. Right Closed/Displaced Intertrochanteric Femoral Fracture, POD 12 Internal Fixation S/p mechanical fall, confirmed via XR. Likely 2/2 osteoporosis. - Orthopedic Surgery consulted - appreciate recs - scant bloody drainage from incision - Eliquis held x48 hours and resumed 05/29 PM - continue PRN graduated pain regimen with Tylenol/Oxycodone - continue Vitamin D/Calcium supplement - PT/OT consulted - recommend inpt rehab - Plan for discharge to [facility]. - consider outpatient DEXA (per PCP) UTI Patient initially thought to be asymptomatic but Urine cx on 05/28 growing 100k+CFU ecli resistant to amp, gentamicin, and Bactrim - started CTX IV on 05/30 - 05/31: transition to Cefdinir 300mg PO BID x7 days total (day 11/19) Acute Normocytic Anemia Baseline Hgb 12.4, down to 7.2 on 05/21. Suspect due to hip fx and intra- operative blood loss. Remains relatively stable in 8s, s/p 2 units pRBCs on 05/21. Thrombocytopenia, resolved Appeared chronic on admission, but plts continuing to increase over last couple days; plts 192 today. Peripheral smear unremarkable. - no further eval/management at this time IGNACIO on CKDIII, IGNACIO resolved Baseline 1.0-1.1. Initially worsening despite mIVFs and RBC infusions. FENa 0.5, no signs of intra-renal pathology or obstruction per US kidneys/bladder. Pre-pili al injury due to perioperative blood loss/fluid shifts and ?post contract nephropathy. Cr improved Paroxysmal Atrial Fibrillation Patient is paced in 60s-70s. - continue Eliquis at reduced dosin.5mg PO BID - continue home Lopressor CAD/HTN/Ischemic Cardiomyopathy - TTE on 05/20 with EF 50-55% - continue Aspirin and Imdur HLD - continue home Ezetimibe/Simvastatin Gout - continue home Allopurinol FEN/GI: heart-healthy diet DVT Prophylaxis: Eliquis 2.5mg PO BID Code Status: full code Dispo - to [facility] (2) Fall: (3) Ischemic cardiomyopathy: (4) CAD (coronary artery disease): (5) Paroxysmal atrial fibrillation: (6) Chronic kidney disease, stage 3: (7) Hypertension: (8) Postsurgical cardiac pacemaker in situ: (9) Gout: (10) Hyperlipidemia: (11) Sensorineural hearing loss (SNHL) of both ears: (12) Vitamin D deficiency: Admission and Anticipated Discharge Date Admission Date: May 19, 2021 Supervising Physician Co-Signing Physician Notes Resident Physician Supervision Note: I independently interviewed and examined the patient and verified the clark history and physical, reviewed labs and image studies and agree with resident Dr. Anna findings and care plan. Subjective No acute events overnight. Seen after just returning from working with PT. Able to ambulate about 210 feet. Reports feeling well overall today. Pain well controlled. Denies fever/chills, chest pain, palpitations, SOB, cough, N/V, abdominal pain, rash. Review of Systems Review of Systems: Per subjective Physical Exam Physical Exam: General: A&Ox3. NAD. Cooperative. HEENT: Atraumatic, normocephalic. Pulm: CTAB A&P. -wheezes, -rales, -rhonchi. Symmetrical chest rise. No increase work of breathing. No respiratory distress. Cardiac: RRR, -mrg. Radial pulses intact and symmetrical. No LE edema. Abdominal: soft, non-tender, non-distended, BS x 4 Skin: warm, dry, no rash, right hip with dressing c/d/i and wound vac intact Results & Data Results & Data ([facility]) Vital Signs (Past 12 Hours) Vital Signs Temp Pulse Resp BP Pulse Ox 06/02/21 08:04 36.5 C 60 16 146/67 H 99 Resident Activity Tracking Resident Involvement: Resident Care Provided Care Provided: Adult Hospital Medicine (1) Closed intertrochanteric fracture of femur Encounter type: initial encounter Fracture alignment: displaced Laterality: right Qualified Code(s): S72.141A - Displaced intertrochanteric fracture of right femur, initial encounter for closed fracture (2) Fall Encounter type: initial encounter Qualified Code(s): W19.XXXA - Unspecified fall, initial encounter
--- NOTE | 2021-06-02 15:10 | Orthopedic Progress Note ---
Date of Service June 02, 2021 Assessment & Plan (1) S/P ORIF (open reduction internal fixation) fracture: Plan: POD 13- ORIF right hip fracture Continue out of bed, with assistance of a walker Ice PRN swelling of hip and thigh Elevate right lower extremity as needed for pain/swelling. She may weight bear as tolerated right lower extremity. No hip precautions of right hip necessary. May do active ROM of all lower extremities. Continue TEDs stocking for DVT prophylaxis. Eliquis resumed. Dr. Dahl present for today's visit. Will plan on leaving the dressing in place and re-evaluate tomorrow. If continues to drain, then may need Irrigation and debridement. Will obtain x-ray of her right hip today. She understands and agrees with the plan. Admission and Anticipated Discharge Date Admission Date: May 19, 2021 Subjective Patient sitting in bed, no complaints of pain in right hip. Some pain with movement, but able to ambulate with PT. Dressins right hip in place. Ambulates with her walker. Physical Exam Musculoskeletal: Right hip incision intact, retained giovana. No active drainage, but serous moisture on dressings. New dressings applied to right hip today. Mild distal edema, able to stand with walker independently. Distal sensation normal. Ecchymosis surrounding right hip incision. no fluctuance, evidence of seroma or hematoma. Results & Data ([facility]) Vital Signs (Past 12 Hours) Vital Signs Temp Pulse Resp BP Pulse Ox 06/02/21 08:04 36.5 C 60 16 146/67 H 99
--- NOTE | 2021-06-02 16:05 | XRay Report ---
XR hip RT min 2V CLINICAL HISTORY: s/p right hip ORIF; post op follow up. Right hip fracture. COMPARISON STUDY: Right femur 05/19/2021. FINDINGS: Status post internal fixation of a comminuted intertrochanteric fracture the proximal right femur with a proximal intramedullary britney and interlocking femoral neck pin. The hardware appears int act. Alignment is near anatomic. Skin giovana are in place. Lateral soft tissue swelling is noted. IMPRESSION: Status post internal fixation of the right femoral intertrochanteric fracture. The hardw are appears intact. ACT 112: Negative or not required by law. Electronically signed by: Jaron Neff M.D. 06/02/2021 4:04 PM
[2021-06-02] MEDS: EZETIMIBE/SIMVASTATIN 10/40MG 1 TAB TAB PO SCH (21:56)
[2021-06-02] MEDS: DOCUSATE SODIUM/SENNA 50/8.6MG TAB PO SCH (21:58)
[2021-06-02] MEDS: oxyCODONE HCL IR 5 MG TAB (IMMEDIATE RELEASE) PO PRN (23:30)
[2021-06-03] MEDS: ACETAMINOPHEN 500 MG TAB PO SCH ×2 (06:12→14:27)
[2021-06-03 06:33] LABS: Basophils # (auto) 0.03 K/uL (0-0.2); Basophils % (auto) 0.5 %; Eosinophils % (auto) 1.5 %; Hemoglobin 8.5 g/dL (12.0-16.0); Immature Granulocytes # (auto) 0.04 K/uL (0.00-0.02); Immature Granulocytes % (auto) 0.6 %; Lymphocytes # (auto) 1.09 K/uL (1.2-3.4); Lymphocytes % (auto) 16.4 %; Mean Corpuscular Hemoglobin 32.1 pg (25-34); Mean Corpuscular Hgb Conc 31.5 g/dL (32-36); Mean Corpuscular Volume 101.9 fL (80-100); Mean Platelet Volume 9.4 fL (7.4-10.4); Monocytes # (auto) 0.86 K/uL (0.11-0.59); Neutrophils # (auto) 4.51 K/uL (1.4-6.5); Platelet Count 215 K/uL (130-400); RDW Coefficient of Variation 18.7 % (11.5-14.5); Red Blood Count 2.65 M/uL (4.2-5.4); White Blood Count 6.63 K/uL (4.8-10.8)
--- NOTE | 2021-06-03 07:51 | Hospitalist Progress Note ---
Date of Service June 03, 2021 Assessment & Plan Admission and Anticipated Discharge Date Admission Date: May 19, 2021 Results & Data Results & Data ([facility]) Vital Signs (Past 12 Hours) Vital Signs Temp Pulse Resp BP BP Pulse Ox 06/03/21 07:11 36.6 C 70 17 136/75 97 06/02/21 21:12 36.7 C 75 16 146/75 H 97
[2021-06-03] MEDS: CALCIUM 600MG + VIT D 400 IU TAB PO SCH (08:12)
[2021-06-03] MEDS: allopurinoL 300 MG TAB PO SCH (08:12)
[2021-06-03] MEDS: ISOSORBIDE MONO EXTENDED REL 30 MG TABCR PO SCH (08:12)
[2021-06-03] MEDS: METOPROLOL TARTRATE 25 MG TAB PO SCH (08:12)
[2021-06-03] MEDS: CEFDINIR 300 MG CAP PO SCH (08:12)
[2021-06-03] MEDS: APIXABAN 2.5 MG TAB PO SCH (08:12)
[2021-06-03] MEDS: ASPIRIN 81 MG ECTAB PO SCH (08:12)
--- NOTE | 2021-06-03 11:16 | Orthopedic Progress Note ---
Date of Service June 03, 2021 Assessment & Plan (1) S/P ORIF (open reduction internal fixation) fracture: Plan: POD 14- ORIF right hip fracture Continue out of bed, with assistance of a walker Ice PRN swelling of hip and thigh Elevate right lower extremity as needed for pain/swelling. She may weight bear as tolerated right lower extremity. No hip precautions of right hip necessary. May do active ROM of all lower extremities. Continue TEDs stocking for DVT prophylaxis. Eliquis resumed. Dressing with less drainage. Will continue to check daily while she's here. Leave giovana in for now, for extra reinforcement. If here till the end of the week, may take them out then or leave in until outpatient follow up next Tuesday. She understands and agrees with the plan. Will discuss findings with Dr. Dahl. Admission and Anticipated Discharge Date Admission Date: May 19, 2021 Subjective Patient sitting in bed, no complaints of pain in right hip. Some pain with movement, but able to ambulate with PT. Dressins right hip in place. Ambulates with her walker. Physical Exam Musculoskeletal: Right hip incision, clean, dry and intact. Cody retained, no active drainage. Dressing removed, surrounding ecchymosis right hip. No hematoma or seroma. No fluctuance. Mild erythema around giovana insertion sites. Distal incision dry. Proximal incision still with serous drainage on dressings, but only on more proximal aspect of that incision. Not soaked thru ABD pad. Less than before. Results & Data ([facility]) Vital Signs (Past 12 Hours) Vital Signs Temp Pulse Resp BP Pulse Ox 06/03/21 07:11 36.6 C 70 17 136/75 97 Laboratory Results 06/03/21 Range/Units 05:49 WBC 6.63 (4.8-10.8) K/uL RBC 2.65 L (4.2-5.4) M/uL Hgb 8.5 L (12.0-16.0) g/dL Hct 27.0 L (37-47) % MCV 101.9 H (80-100) fL MCH 32.1 (25-34) pg MCHC 31.5 L (32-36) g/dL RDW Std Deviation 68.0 H (36.4-46.3) fL RDW Coeff of Debby 18.7 H (11.5-14.5) % Plt Count 215 (130-400) K/uL MPV 9.4 (7.4-10.4) fL Immature Gran % (Auto) 0.6 % Neut % (Auto) 68.0 % Lymph % (Auto) 16.4 % [place] % (Auto) 13.0 % Eos % (Auto) 1.5 % Baso % (Auto) 0.5 % Neut # (Auto) 4.51 (1.4-6.5) K/uL Lymph # (Auto) 1.09 L (1.2-3.4) K/uL [place] # (Auto) 0.86 H (0.11-0.59) K/uL Eos # (Auto) 0.10 (0-0.5) K/uL Baso # (Auto) 0.03 (0-0.2) K/uL Immature Gran # (Auto) 0.04 H (0.00-0.02) K/uL Diagnostic Findings XR hip RT min 2V CLINICAL HISTORY: s/p right hip ORIF; post op follow up. Right hip fracture. COMPARISON STUDY: Right femur 05/19/2021. FINDINGS: Status post internal fixation of a comminuted intertrochanteric fracture the proximal right femur with a proximal intramedullary britney and interlocking femoral neck pin. The hardware appears intact. Alignment is near anatomic. Skin giovana are in place. Lateral soft tissue swelling is noted. IMPRESSION: Status post internal fixation of the right femoral intertrochanteric fracture. The hardware appears intact.
--- NOTE | 2021-06-03 15:38 | Discharge Summary ---
Date of Service June 03, 2021 Admission HPI Per Admitting Provider The patient is an 85-year-old female with a past medical history including chronic allergic rhinitis, and SNHL of both ears, vitamin D deficiency, CKD stage III, hypertension, hyperlipidemia, CAD, gout, CHF, cardiac pacemaker, right shoulder dislocation and pancreatitis. She presents emergency department with acute onset of right hip pain immediately after fall while at home as noted above. X-ray in the emergency department of the right hip shows an acute, comminuted, angulated, impacted and displaced right hip fracture. Principal Diagnosis Closed right hip fracture s/p ORIF Discharge Exam General: A&Ox3. NAD. Cooperative. HEENT: Atraumatic, normocephalic. Pulm: CTAB A&P. -wheezes, -rales, -rhonchi. Symmetrical chest rise. No increase work of breathing. No respiratory distress. Cardiac: RRR, -mrg. Radial pulses intact and symmetrical. No LE edema. Abdominal: soft, non-tender, non-distended, BS x 4 Skin: warm, dry, no rash, right hip with c/d/i dressing Discharge Data Allergies Allergy/AdvReac Type Severity Reaction Status Date / Time heparin Allergy Severe Thrombocytopenia; Verified 05/19/21 16:03 NEUTROPENIA Penicillins Allergy Intermediate Hives; Verified 05/19/21 16:03 SYNCOPE Consultations 05/19/21 16:37 ED Decision to Admit Stat 05/20/21 10:05 Consult Orthopedic Surgery Routine Procedures Performed Operation Date: 05/20/21 10:00 <No data on this case meets the specified criteria> Operation Date: 05/20/21 10:00 Actual Procedures p Right Hip Fracture Trochanteric Nail(Right) - Aman Dahl MD Ordered Studies 05/19/21 15:20 CT cervical spine wo con Stat CT head/brain wo con Stat 05/19/21 16:37 CT hip RT wo con Stat 05/20/21 15:00 FL hip RT 2-3V Routine 05/22/21 07:34 US renal/blad retro comp Urgent Hospital Course (1) Closed intertrochanteric fracture of femur: Barb Mata is an 85yo female with PMHx of CAD, ischemic cardiomyopathy, s/p PPM, paroxysmal a-fib (on Eliquis), CKDIII, HTN, HLD, gout and bilateral SNHL who was admitted to [facility] on 05/19 due to right closed/displaced intertrochanteric femoral fracture s/p mechanical fall. Right Closed/Displaced Intertrochanteric Femoral Fracture s/p Internal fixation S/p mechanical fall, confirmed via XR. Likely 2/2 osteoporosis. - Orthopedic Surgery consulted - see instructions below - scant bloody drainage from incision - Eliquis held x48 hours and resumed 10/15 PM - Drain removed on day of discharge - continue PRN graduated pain regimen with Tylenol/Oxycodone - continue Vitamin D/Calcium supplement - PT/OT consulted - recommend inpt rehab - discharged to [facility] - consider outpatient DEXA (per PCP) UTI Patient initially thought to be asymptomatic but Urine cx on 05/28 growing 100k+CFU e.coli resistant to amp, gentamicin, and Bactrim - started CTX IV on 05/30 - 05/31: transition to Cefdinir 300mg PO BID x7 days total (day 12/19) -- continue for two additional days at [place] Acute Normocytic Anemia Baseline Hgb 12.4, down to 7.2 on 05/21. Suspect due to hip fx and intra-op erative blood loss. Remains relatively stable in 8s, s/p 2 units pRBCs on 05/21. Thrombocytopenia, resolved Appeared chronic on admission, but plts continuing to increase over last couple days; plts 192 today. Peripheral smear unremarkable. - no further eval/management at this time IGNACIO on CKDIII, IGNCAIO resolved Baseline 1.0-1.1. Initially worsening despite mIVFs and RBC infusions. FENa 0.5, no signs of intra-renal pathology or obstruction per US kidneys/bladder. Pre- renal injury due to perioperative blood loss/fluid shifts and ?post contract nep hropathy. Cr improved Paroxysmal Atrial Fibrillation Patient is paced in 60s-70s. - continue Eliquis at reduced dosin.5mg PO BID - continue home Lopressor CAD/HTN/Ischemic Cardiomyopathy - TTE on 05/20 with EF 50-55% - continue Aspirin and Imdur HLD - continue home Ezetimibe/Simvastatin Gout - continue home Allopurinol FEN/GI: heart-healthy diet DVT Prophylaxis: Eliquis 2.5mg PO BID Code Status: full code Dispo - to [facility] (2) Fall: (3) Ischemic cardiomyopathy: (4) CAD (coronary artery disease): (5) Paroxysmal atrial fibrillation: (6) Chronic kidney disease, stage 3: (7) Hypertension: (8) Postsurgical cardiac pacemaker in situ: (9) Gout: (10) Hyperlipidemia: (11) Sensorineural hearing loss (SNHL) of both ears: (12) Vitamin D deficiency: Total Time Total Time Spent Total Time Spent (In Minutes): see attending attestation Discharge Plan Discharge Items Patient Disposition: Transfer Detention Fac Reason For Visit: CLOSED RIGHT HIP FRACTURE Discharge Diagnosis: Closed right hip fracture s/p ORIF Activity: Per Instructions section Weightbearing: Right weightbearing Weightbearing Comment: with walker and assistance Non-emergency contact: Surgeon Call non-emergency contact if: you have any medication questions, your symptoms worsen, your pain is not controlled, your pain is worsening, your temperature is above 101, your wound has increased redness and your wound has increased drainage Follow-up/Referrals: Fco Vazquez MD [Primary Care Provider] - Aman Dahl MD [Surgeon] - 06/05/21 1:00 pm Diet: Regular Addtl Attending Provider Instructions: Barb Mata is an 85yo female with PMHx of CAD, ischemic cardiomyopathy, s/p PPM, paroxysmal a-fib (on Eliquis), CKDIII, HTN, HLD, gout and bilateral SNHL who was admitted to [facility] on 05/19 due to right closed/displaced intertrochanteric femoral fracture s/p mechanical fall. Right Closed/Displaced Intertrochanteric Femoral Fracture s/p Internal fixation S/p mechanical fall, confirmed via XR. Likely 2/2 osteoporosis. - Orthopedic Surgery consulted - see instructions below - scant bloody drainage from incision - Eliquis held x48 hours and resumed 05/29 PM - continue PRN graduated pain regimen with Tylenol/Oxycodone - continue Vitamin D/Calcium supplement - PT/OT consulted - recommend inpt rehab - Plan for discharge to [facility] - consider outpatient DEXA (per PCP) UTI Patient initially thought to be asymptomatic but Urine cx on 05/28 growing 100k+CFU e.coli resistant to amp, gentamicin, and Bactrim - started CTX IV on 05/30 - 05/31: transition to Cefdinir 300mg PO BID x7 days total (day 12/19) -- continue for two additional days at [place] Acute Normocytic Anemia Baseline Hgb 12.4, down to 7.2 on 05/21. Suspect due to hip fx and intra- operative blood loss. Remains relatively stable in 8s, s/p 2 units pRBCs on 05/21. Thrombocytopenia, resolved Appeared chronic on admission, but plts continuing to increase over last couple days; plts 192 today. Peripheral smear unremarkable. - no further eval/management at this time IGNACIO on CKDIII, IGNACIO resolved Baseline 1.0-1.1. Initially worsening despite mIVFs and RBC infusions. FENa 0.5, no signs of intra-renal pathology or obstruction per US kidneys/bladder. Pre- renal injury due to perioperative blood loss/fluid shifts and ?post contract nephropathy. Cr improved Paroxysmal Atrial Fibrillation Patient is paced in 60s-70s. - continue Eliquis at reduced dosin.5mg PO BID - continue home Lopressor CAD/HTN/Ischemic Cardiomyopathy - TTE on 05/20 with EF 50-55% - continue Aspirin and Imdur HLD - continue home Ezetimibe/Simvastatin Gout - continue home Allopurinol FEN/GI: heart-healthy diet DVT Prophylaxis: Eliquis 2.5mg PO BID Code Status: full code Dispo - to [facility] Addtl Grain Combine Driver Provider Instructions: Weight bear as tolerated right lower extremity Use walker to assist with ambulation at all times. No hip precautions necessary. Ice to right hip as needed for pain/swelling. Allowed for full range of motion as tolerated right lower extremity Keep incision covered with Prevena dressing/incisional wound vac. Reinforce edges to confirm seal for vac as needed. Please call our office with issues with the vac if resealing it doesn't help. This vac is good to stay on for 7 days without changing it. Applied on 05/28/21. Keep on until follow up appointment on 06/03/21. Pain medication as prescribed/as needed. Take your blood thinner medication as you did prior to surgery. Wear Willy stockings on right leg during the day, off at night. Pending Studies at Discharge: No Stand-Alone Forms: My [facility] [employer] Skilled Items Patient informed of condition?: Yes DNR: No Discharge Level of Care: Skilled Communicable Disease: No Discharge Prognosis: Improving Lines: None Urinary Catheter: No Medications and DC Order Prescriptions: New acetaminophen [Tylenol Extra Strength] 500 mg Tablet 1,000 mg PO Q8H 10 Days Qty: 60 RF: 0 cefdinir 300 mg Capsule 300 mg PO BID 2 Days Qty: 4 RF: 0 oxycodone 5 mg Tablet 5 mg PO Q6H PRN (Reason: pain) 5 Days Qty: 20 RF: 0 Eliquis 2.5 mg Tablet 2.5 mg PO BID 30 Days Qty: 60 RF: 0 Continued ezetimibe-simvastatin [Vytorin 10-40] 10-40 mg Tablet 1 tab PO PM Qty: 0 RF: 0 nitroglycerin [Nitrostat] 0.4 mg Tablet, Sublingual 0.4 mg sublingual UD PRN (Reason: Chest Pain) Qty: 0 RF: 0 allopurinol 300 mg Tablet 300 mg PO QAM Qty: 90 RF: 0 aspirin 81 mg tablet,chewable 81 mg PO DAILY RF: 0 metoprolol tartrate 25 mg Tablet 25 mg PO BID RF: 0 furosemide 20 mg Tablet 20 mg PO DAILY PRN (Reason: swelling) RF: 0 calcium carbonate-vitamin D3 [Calcium 500 + D] 500 mg(1,250mg) -400 unit Tablet 1 tab PO DAILY RF: 0 isosorbide mononitrate 30 mg tablet extended release 24 hr 30 mg PO DAILY RF: 0 Discontinued apixaban 5 mg tablet 5 mg PO BID Qty: 180 RF: 3 Discharge Orders: Discharge Order (Routine); Ordered 06/03/21 Ordered By: Ned Hood Admission Data Admit Date/Time: 05/19/21 17:12 Attending Provider: Madelin Bobby Admit Provider: Shakir Cox Primary Care Provider: Fco Vazquez Other Providers: [facility] ; [facility] ; Chi Tellez [facility] ; Devante Cha ; Aman Dahl Other Interventions: Discharge Summary Assessment (RN) Last Done: 06/03/21 12:14 Supervising Physician Co-Signing Physician Notes Resident Physician Supervision Note: I independently interviewed and examined the patient and verified the clark history and physical, reviewed labs and image studies and agree with resident Dr. Anna findings and care plan. Resident Activity Tracking Resident Involvement: Resident Care Provided Care Provided: Adult Hospital Medicine
== END 2021-06-03 19:13 | DRG 481 ==
LOC: ED 15:08 → EDINP 17:12 → SUATTDRO 17:12 → 2N 22:00 → 3E 05-26 21:46

== ENCOUNTER 2022-11-18 07:56 | Observation (INO) ==
--- NOTE | 2022-11-10 13:43 | Anesthesiology Consultation ---
Date of Service November 10, 2022 Assessment & Plan (1) Encounter for pre-operative examination: - COVID screening: Per assessment on 11/10: No known COVID-19 positive contacts or current COVID-19 related symptoms. Travel screen negative. Patient vaccinated. At surgeon discretion if preop Covid testing being done. - Cardiology office visit (05/03/22): "The patient is stable from cardiovascular standpoint. She demonstrates excellent control of her blood pressure and lipid values. She is tolerating rate control and long-term anticoagulation for her paroxysmal atrial fibrillation without difficulty. Her coronary artery disease remains quiescent on current medical regimen. She is due for a pacemaker interrogation at her next visit. Highly complex medical issues were managed and discussed today. Plan.. Continue current medications." - Cardiology note (11/01/22): "Acceptable cardiac risk to proceed with repair of her incarcerated inguinal hernia." Chart Review Chart Review: Acceptable Risk for Surgery and Patient NOT seen in Pre Admission Testing History Surgery Operation Date: 11/18/22 08:15 Proposed Procedures p Open Left Inguinal Hernia Repair with Mesh - Je Quijano, Height/Weight Height: 5 ft 2 in Weight: 59.874 kg Allergies Allergy/AdvReac Type Severity Reaction Status Date / Time heparin Allergy Severe Thrombocytopenia; Verified 11/10/22 12:03 NEUTROPENIA Penicillins Allergy Intermediate Hives; Verified 11/10/22 12:03 SYNCOPE Medications Home Medications Medication Instructions Recorded Confirmed Last Taken ezetimibe 10 mg-simvastatin 40 mg 1 tab PO PM ##0 09/19/06 11/10/22 05/19/21 tablet (Vytorin) nitroglycerin 0.4 mg sublingual 0.4 mg sublingual UD PRN Chest 04/05/13 11/10/22 Unknown tablet (Nitrostat) Pain #0 BTLS allopurinol 300 mg tablet 300 mg PO QAM ##90 02/13/17 11/10/22 05/19/21 aspirin 81 mg chewable tablet 81 mg PO QAM 04/22/21 11/10/22 05/19/21 isosorbide mononitrate 30 mg 30 mg PO QAM 05/19/21 11/10/22 Unknown tablet,extended release 24 hr metoprolol tartrate 25 mg tablet 25 mg PO BID 05/19/21 11/10/22 05/19/21 calcium carbonate 500 mg-vitamin 1 tab PO BID 09/11/21 11/10/22 Unknown D3 10 mcg (400 unit) tablet (Calcium 500 + D) alendronate 70 mg tablet (Fosamax) 70 mg PO .once a week 05/03/22 11/10/22 Unknown furosemide 20 mg tablet 20 mg PO DAILY PRN swelling #30 09/06/22 11/10/22 Unknow n tabs apixaban 5 mg tablet 5 mg PO BID #180 tabs 10/06/22 11/10/22 Unknown acetaminophen 500 mg tablet 500 mg PO QID PRN Pain 11/10/22 11/10/22 Unknown (Tylenol Extra Strength) Past Medical History Medical History CAD (coronary artery disease) stent x1 (1998) Chronic kidney disease, stage 3 Gout Hearing deficit bilateral hearing aids History of pelvic mass Hx of pancreatitis Hypercholesterolemia Hyperlipidemia Hypertension Malignant melanoma of skin melanoma on face, "treated" Old myocardial infarct 1998 Osteopenia Pacemaker Medtronic, last checked 07/2022 Paroxysmal atrial fibrillation follows w/Dr Springer Peripheral vascular disease Past Family History Family History Family/Other Hearing loss Father Heart disease Mother Cancer type not documented on new patient form Other No family history of adverse response to anesthesia No family history of bleeding disorder Denies family history of Ovarian cancer Chronic kidney disease Breast cancer Colorectal cancer Past Surgical History Surgical History History of cataract surgery b/l History of cholecystectomy History of cochlear implant since removed History of heart artery stent 1998- x 1 stent [facility] [place] History of herniorrhaphy Open RIH repair with mesh 08-26-2016 Dr. Quijano S/P cardiac pacemaker procedure S/P ORIF (open reduction internal fixation) fracture right hip S/P trigger finger release Social History Smoking Status: Former smoker tobacco type: cigarettes Smoking cigarettes per day: quit 1998 Do You Dip or Chew Tobacco: No Hx Alcohol Use: Yes alcohol intake frequency: holidays/special occasions only Hx Substance Use: No substance use type: does not use Lab Results Anesthesia Preop Results Results Anesthesia Widget: WBC 8.05 K/ul (4.8-10.8) 11/09/22 Hgb 11.6 g/dl (12.0-16.0) L 11/09/22 Hct 35.9 % (37.0-47.0) L 11/09/22 Plt 122 K/uL (130-400) L 11/09/22 Na 137 mmol/L (136-145) 11/09/22 K 4.0 mmol/L (3.5-5.1) 11/09/22 Cl 102 mmol/L (98-107) 11/09/22 CO2 32 mmol/L (21-32) 11/09/22 BUN 21 mg/dl (6-23) 11/09/22 Creat 0.81 mg/dl (0.6-1.2) 11/09/22 Glucose Level 108 mg/dl (70-99(Fasting)) H 11/09/22 Testing Electrocardiogram Date: 11/09/22 AV paced rhythm at 61bpm. Echocardiogram Date: 05/20/21 EF 50-55%. No RWMA. Borderline LAE. Mild cLVH. Other Testing Pacer check (07/26/22) 3.4 years. AP 82.2%. BOTTLE CASER 54.0%. Zero a. fib/flutter episodes.
[~2022-11-18 07:56] MED LIST changes: +CLINDA 900 MG **Premixed Bag IV SCH; -CLINDAMYCIN 600 MG/54 ML BAG IV SCH; +LACTATED RINGER'S 1,000 ML IV SCH; -LR 15ML/HR IV SCH
--- NOTE | 2022-11-18 08:21 | History & Physical Report ---
Date of Service November 18, 2022 Assessment & Plan (1) Incarcerated left inguinal hernia: Plan: Planned repair today. We will proceed with open left inguinal hernia repair with mesh. Discussed risks and options. She is agreeable. History of Present Illness Primary Care Provider: Fco Vazquez MD Patient here for repair of a left inguinal hernia. It bothers her on a daily basis. She had imaging to confirm. There is been no changes to her health status since I seen her last in the office. Allergies Allergy/AdvReac Type Severity Reaction Status Date / Time heparin Allergy Severe Thrombocytopenia; Verified 11/10/22 12:03 NEUTROPENIA Penicillins Allergy Intermediate Hives; Verified 11/10/22 12:03 SYNCOPE Home Medications Medication Instructions Recorded Confirmed Type ezetimibe 10 mg-simvastatin 40 mg 1 tab PO PM ##0 09/19/06 11/10/22 History tablet (Vytorin) nitroglycerin 0.4 mg sublingual 0.4 mg sublingual UD PRN Chest 04/05/13 11/10/22 History tablet (Nitrostat) Pain #0 BTLS allopurinol 300 mg tablet 300 mg PO QAM ##90 02/13/17 11/10/22 History aspirin 81 mg chewable tablet 81 mg PO QAM 04/22/21 11/10/22 History isosorbide mononitrate 30 mg 30 mg PO QAM 05/19/21 11/10/22 History tablet,extended release 24 hr metoprolol tartrate 25 mg tablet 25 mg PO BID 05/19/21 11/10/22 History calcium carbonate 500 mg-vitamin 1 tab PO BID 09/11/21 11/10/22 History D3 10 mcg (400 unit) tablet (Calcium 500 + D) alendronate 70 mg tablet (Fosamax) 70 mg PO .once a week 05/03/22 11/10/22 History furosemide 20 mg tablet 20 mg PO DAILY PRN swelling #30 09/06/22 11/10/22 Rx tabs apixaban 5 mg tablet 5 mg PO BID #180 tabs 10/06/22 11/10/22 Rx acetaminophen 500 mg tablet 500 mg PO QID PRN Pain 11/10/22 11/10/22 History (Tylenol Extra Strength) Past Med/Surg History Medical History CAD (coronary artery disease) stent x1 (1998) Chronic kidney disease, stage 3 Gout Hearing deficit bilateral hearing aids History of pelvic mass Hx of pancreatitis Hypercholesterolemia Hyperlipidemia Hypertension Malignant melanoma of skin melanoma on face, "treated" Old myocardial infarct 1998 Osteopenia Pacemaker [employer], last checked 07/2022 Paroxysmal atrial fibrillation follows w/Dr Springer Peripheral vascular disease Surgical History History of cataract surgery b/l History of cholecystectomy History of cochlear implant since removed History of heart artery stent 1999- x 1 stent [facility] History of herniorrhaphy Open RIH repair with mesh 08-26-2016 Dr. Quijano S/P cardiac pacemaker procedure S/P ORIF (open reduction internal fixation) fracture right hip S/P trigger finger release Family History Family/Other Hearing loss Father Heart disease Mother Cancer type not documented on new patient form Other No family history of adverse response to anesthesia No family history of bleeding disorder Denies family history of Ovarian cancer Chronic kidney disease Breast cancer Colorectal cancer Social History Smoking Status: Former smoker Age Started Using Tobacco: 43; Age Quit Using Tobacco: 63; packs per day: 0.5; Cigarettes Per Day: quit 1998; Second Hand Exposure: Yes (in the past); Do You Dip or Chew Tobacco: No; Tobacco Cessation Education Requested by Patient: No Hx Alcohol Use: Yes Alcohol Intake Frequency: Monthly or Less Hx Substance Use: No Preferred Language: Singaporean Communication Ability: Effective Visual Impairment: No Limitations Cashier Greeter Required: No Beliefs That Will Affect Care: None marital status: / Current Living Situation: Family Current Living Situation Comment: sons How many Children do You have: 5 Other Information That Helps Us Care for You: No Feels Safe at Home: Yes Safety Concerns: Feels Safe At This Time during the past year weight has: decreased > 10 lbs Assistive Devices: Glasses, Hearing Aid - Bilateral and Walker Physical Exam Constitutional: WD/WN, vitals as above no acute distress and not ill appearing Eyes: PERRL, conjunctivae normal, anicteric sclerae EOM intact bilaterally ENMT: external ear and nose normal, oropharynx normal Ears: no hearing impairment Neck: trachea midline, no thyromegaly Respiratory: normal respiratory effort; no respiratory distress and does not use accessory muscles Cardiovascular: Rate/Rhythm: regular rate and regular rhythm Gastrointestinal (Abdomen): Soft. Positive left inguinal hernia. Reducible. Right side feels solid from her prior repair. Skin: no rashes, warm and dry Psychiatric: Orientation: alert, oriented x 3 and cooperative
[2022-11-18] MEDS ORDERED: ALBUTEROL 0.083% NEBU SOLN 3 ML VIAL INH PRN (08:29)
[2022-11-18] MEDS ORDERED: fentaNYL citrate PF 100 MCG/2 ML VIAL IV PRN (08:29)
[2022-11-18] MEDS ORDERED: ATROPINE SULFATE 0.1 MG/ML 10ML SYR IV PRN (08:29)
[2022-11-18] MEDS ORDERED: ONDANSETRON INJ 2 MG/ML 2 ML VIAL IV PRN ×2 (08:29→12:32)
[2022-11-18] MEDS ORDERED: LABETALOL HCL IV 5 MG/ML 20ML IV PRN (08:29)
[2022-11-18] MEDS ORDERED: ACETAMINOPHEN 1,000 MG/100 ML VIAL IV STA (08:29)
[2022-11-18] MEDS ORDERED: ePHEDrine sulfate 50 MG/ML AMP IV PRN (08:29)
--- NOTE | 2022-11-18 08:29 | Anesthesiology Progress Note ---
Date of Service November 18, 2022
[2022-11-18] MEDS ORDERED: LIDOCAINE 2% MPF LOCAL 5 ML VIAL ONE (08:46)
[2022-11-18] MEDS ORDERED: PROPOFOL IV EMULSION 10 MG/ML 20 ML VIAL IV ONE (08:46)
[2022-11-18] MEDS ORDERED: fentaNYL citrate PF 100 MCG/2 ML VIAL ONE (08:46)
[2022-11-18] MEDS ORDERED: ONDANSETRON INJ 2 MG/ML 2 ML VIAL ONE (08:51)
[2022-11-18] MEDS ORDERED: DEXAMETHASONE SOD INJ 4 MG/ML VIAL ONE ×2 (08:51→10:29)
[2022-11-18] MEDS ORDERED: BUPIVACAINE/EPINEPHRINE 0.5% MPF 1:200,000 30 ML VIAL ONE (09:56)
[2022-11-18] MEDS ORDERED: ROCURONIUM BROMIDE 10 MG/ML 5 ML VIAL IV ONE (10:29)
[2022-11-18] MEDS ORDERED: ePHEDrine sulfate 50 MG/ML SYR ONE (10:36)
[2022-11-18] MEDS ORDERED: NEOSTIGMINE METHYLSULFATE 1 MG/ML 10ML VIAL ONE (11:03)
[2022-11-18] MEDS ORDERED: GLYCOPYRROLATE 0.2 MG/ML VIAL ONE (11:03)
--- NOTE | 2022-11-18 11:12 | Post Operative Brief Note ---
PG Immediate Post Op with CF Date of Surgery November 18, 2022 Pre & Post Diagnosis Operation Date: 11/18/22 09:35 Pre-Op Diagnosis: Incarcerated Left Inguinal Hernia Post-Op Diagnosis: Incarcerated Left Inguinal Hernia I identified the patient and participated in the time-out.: Yes Procedure Operation Date: 11/18/22 09:35 Actual Procedures p Open Left Inguinal Hernia Repair with Mesh(Left) - Je Quijano DO Surgeon Je Quijano DO Hammer Heater hali Mota Estimated Blood Loss 5 Findings Consistent with Post-Op Diagnosis
--- NOTE | 2022-11-18 11:35 | Anesthesiology Progress Note ---
Date of Service November 18, 2022 Anesthesia Post Procedure Vital Signs Vital Signs: Temp Pulse Resp BP Pulse Ox O2 Del Method 11/18/22 08:28 36.8 C 60 20 177/87 H 95 Room Air Transfer of Care Handoff Completed per policy Notes Mental Status: alert / awake / arousable Patient Amnestic to Procedure: Yes Nausea / Vomiting: adequately controlled Pain: adequately controlled Airway Patency, RR, SpO2: stable & adequate BP & HR: stable & adequate Hydration State: stable & adequate Anesthetic Complications: no major complications apparent and Pt Satisfied with anesthetic care
--- NOTE | 2022-11-18 12:08 | Anesthesiology Progress Note ---
Date of Service November 18, 2022 Anesthesia Post Procedure Vital Signs Vital Signs: Temp Pulse Pulse Resp BP BP Pulse Ox 11/18/22 12:05 37.1 C 60 22 138/70 96 11/18/22 11:55 70 20 124/69 93 11/18/22 11:45 67 26 H 120/61 97 11/18/22 11:35 60 24 118/60 98 11/18/22 11:25 36.3 C L 60 16 107/67 96 11/18/22 08:28 36.8 C 60 20 177/87 H 95 O2 Del Method O2 Flow Rate 11/18/22 12:05 Nasal Cannula 2 11/18/22 11:55 Room Air 11/18/22 11:45 Oxymask 4 11/18/22 11:35 Oxymask 6 11/18/22 11:25 Oxymask 8 11/18/22 08:28 Room Air Transfer of Care Handoff Completed per policy Notes Mental Status: alert / awake / arousable Patient Amnestic to Procedure: Yes Nausea / Vomiting: adequately controlled Pain: adequately controlled Airway Patency, RR, SpO2: stable & adequate BP & HR: stable & adequate Hydration State: stable & adequate Anesthetic Complications: no major complications apparent and Pt Satisfied with anesthetic care
[2022-11-18] MEDS ORDERED: oxyCODONE HCL IR 5 MG TAB (IMMEDIATE RELEASE) PO PRN ×2 (12:32)
[2022-11-18] MEDS ORDERED: ACETAMINOPHEN 325 MG TAB PO PRN (12:32)
[2022-11-18] MEDS ORDERED: MoRPHine SULFATE 2 MG/ML CARP IV PRN (12:32)
[2022-11-18] MEDS: LACTATED RINGER'S 1,000 ML IV SCH (13:00)
--- NOTE | 2022-11-18 14:20 | Operative Report ---
PG Post Operative Report Pre & Post Diagnosis Operation Date: 11/18/22 09:35 Pre-Op Diagnosis: Incarcerated Left Inguinal Hernia Post-Op Diagnosis: Incarcerated Left Inguinal Hernia I identified the patient and participated in the time-out.: Yes Procedure Operation Date: 11/18/22 09:35 Actual Procedures p Open Left Inguinal Hernia Repair with Mesh(Left) - Je Quijano DO Surgeon Je Quijano DO [employer] Representative hali Mota Estimated Blood Loss 5 Findings Consistent with Post-Op Diagnosis Specimens none Description of Procedure After informed consent was obtained the patient was taken the operating room and placed in supine position. After successful placement of the laryngeal mask airway the groin was shaved and sterilely prepped and draped in usual fashion. An inguinal incision was made with a 15 blade scalpel and carried down through the soft tissue using bipolar graspers and Metzenbaum scissors. The external oblique aponeurosis was skeletonized. A fresh blade was used to make an incision and then Metzenbaum scissors were used to extend this distally through the external ring as well as for several centimeters proximally. Once in the inguinal canal I used blunt finger dissection to free up the round ligament and hernia sac. The round ligament itself was quite atrophied. I cauterized using bipolar graspers and then divided it with a Metzenbaum scissor. This allowed me to dissect the hernia sac back to its neck. I was able to easily dunked it back into the abdominal cavity. It was able to stay self reduced. We then thoroughly irrigated the wound. Because of the discrete nature of the defect I opted to use a plug and patch technique. A polypropylene medium plug was placed into the defect and was secured distally to Brennan's ligament laterally along the shelving portion of Poupart's ligament and medially along the midline musculature. Next, I used a polypropylene mesh as an onlay. It was secured distally to Brennan's ligament, laterally along the shelving portion of Poupart's ligament and medially along the midline musculature. 0 Ethibond was used for the suturing. The "arms" of the mesh were wrapped around behind the cord and cord structures and again secured to underlying muscle. The mesh laid nice and flat and tension-free. We thoroughly irrigated the wound. There was adequate hemostasis. I injected Marcaine around the edges of the mesh for postoperative analgesia. We then closed the external oblique aponeurosis with 2-0 Vicryl in a running fashion. Soft tissue was irrigated and closed in multiple layers using 3-0 Vicryl for the deep layers and 4-0 Monocryl for the skin. Some additional Marcaine was injected around the skin incision. We then used a skin glue as a dressing. The patient was awaken extubated and transferred to recovery in stable condition. My physician's executive chef assistant was present throughout the entire procedure. She helped prep the patient. Helped with retraction throughout the case to aid my dissection, assisted with wound closure as well as dressing placement. I attest to the content of the Intraoperative Record and any orders documented therein. Any exceptions are noted below. I attest to the content of the Intraoperative Record and any orders documented therein. Any exceptions are noted below.
[2022-11-18] MEDS ORDERED: COUGH DROP (SUGAR FREE) LOZ 24 LOZ/1 BOX BUCCAL PRN (20:08)
[2022-11-18] MEDS: METOPROLOL TARTRATE 25 MG TAB PO SCH (20:14)
[2022-11-18] MEDS ORDERED: EZETIMIBE/SIMVASTATIN 10/40MG 1 TAB TAB PO SCH (21:00)
[2022-11-19] MEDS: LACTATED RINGER'S 1,000 ML IV SCH (00:21)
[2022-11-19] MEDS: METOPROLOL TARTRATE 25 MG TAB PO SCH (08:19)
--- NOTE | 2022-11-19 09:44 | Surgery Progress Note ---
Date of Service November 19, 2022 Assessment & Plan (1) Inguinal hernia: Plan: POD#1 left inguinal hernia repair doing well. some expected post op soreness continue diet as tolerates, po pain control encouraged splitting incision when coughing etc okay for discharge to home, ride is available after lunch f/u in clinic with Dr. Quijano in 2 weeks as above. doing well. ok for d/c. instructions given. Admission and Anticipated Discharge Date Admission Date: November 18, 2022 Subjective Patient feeling overall well., Has some expected soreness at incisions, especially with coughing. Tolerating diet. No n/v. Physical Exam Physical Exam: awake/alert, no distress, sitting up in chair Gastrointestinal (Abdomen): groin incision c/d/i, expected per incisional soreness Results & Data Vital Signs (Past 12 Hours) Vital Signs Temp Pulse Pulse Resp BP Pulse Ox O2 Del Method 11/19/22 08:32 Nasal Cannula 11/19/22 07:00 36.5 C 60 18 134/81 98 Nasal Cannula 11/19/22 07:00 60 11/19/22 03:41 36.5 C 58 L 16 122/70 98 Nasal Cannula 11/18/22 23:37 36.5 C 60 16 131/70 96 Nasal Cannula 11/18/22 23:22 60 O2 Flow Rate 11/19/22 08:32 2 11/19/22 07:00 2 11/19/22 07:00 11/19/22 03:41 2 11/18/22 23:37 2 11/18/22 23:22 PG Care Time/CCT Total # of Minutes Spent Total Time Spent with Patient: Total time spent is greater than 50% in coordination of care (as documented) at patient's floor/unit and/or counseling patient: Coding Level of Care Code 87187 Post Operative Follow-Up Diagnoses Inguinal hernia K40.90
== END 2022-11-19 12:35 | disposition home or self-care (01) ==
LOC: 2S 07:56 → ASU 07:56

== ENCOUNTER 2023-04-07 15:47 | Inpatient (IN) ==
--- NOTE | 2023-04-07 16:18 | ED Triage Note ---
Date of Service April 07, 2023 History of Present Illness This patient was briefly evaluated while in triage. An abbreviated physical exam was performed. This patient is a 87-year-old Female who presents to the ED for evaluation of swelling in her legs. She had surgery 9 days ago at [facility]. She had a colon resection 9 days ago. She has noticed swelling in her legs since her surgery. She denies pain. She notes some shortness of breath when she gets up to walk to the bathroom after sitting for a long period of time. She was referred here by her PCP because they were concerned about a blood clot. Physical Exam VITALS: Vitals are noted on the nurse's note and reviewed by myself. GENERAL: This is an 87-year-old female, in no acute distress, well-developed well-nourished. Sitting in wheelchair in triage. SKIN: The skin was without rashes. HEART: Regular rate and rhythm without murmurs gallops or rubs. LUNGS: Clear to auscultation bilaterally without wheezes, rales or rhonchi. EXTREMITIES: 1+ pitting edema noted bilaterally. NEURO: Patient was alert and oriented to person place and time. Initial orders for labs and / or imaging were placed and patient was placed in the waiting area until a bed is available. Please see further documentation for the full ED course.
--- NOTE | 2023-04-07 17:13 | Emergency Department Note ---
Impression & Plan Acute dyspnea, Acute exacerbation of CHF (congestive heart failure), Non-ST elevation AR (NSTEMI), Bilateral edema of lower extremity ED Provider Note HISTORY OF PRESENT ILLNESS: Patient is an 87-year-old female presenting with lower extremity edema. Patient reports that she has had progressively worsening lower extremity edema for the last few weeks. She recently had colorectal surgery on 03/29/2023. She reports her bilateral lower extremity edema has been progressing since then. She is also had some shortness of breath with exertion today. Denies any chest pain. She is on Eliquis daily for history of A-fib. Denies any fevers. Denies any nausea or vomiting. Denies any DVT or PE history. ROS: as above PHYSICAL EXAM: Constitutional: Patient appears in no acute distress. HENT: Head: Normocephalic and atraumatic. Eyes: EOMI, PERRL Mouth/Throat: Mucous membranes moist. Neck: Trachea midline. Neck supple. Cardiovascular: RRR, No murmurs, rubs or gallops. Intact distal pulses. Pulmonary/Chest: No respiratory distress. Breath sounds clear and equal bilaterally. No wheezes or rales. Abdominal: Abdomen soft, no tenderness, rebound or guarding. Musculoskeletal: No tenderness or deformity noted. Pitting edema of bilateral lower extremities extending to just above knee. Skin: Warm and dry. No rash, erythema, pallor or cyanosis Psychiatric: Appropriate mood and affect for situation. Neurological: Alert and keenly responsive. CN II-XII grossly intact, moving all extremities equally and fully. MDM: - Vitals signs showed tachycardic - History obtained via patient. Patient presents with lower extremity edema. Patient reports progressively worsening lower extremity edema over the last few weeks since she had abdominal surgery. She states progressively worsening shortness of breath with exertion. Denies any chest pain. She is on Eliquis for history of A-fib. Denies any DVT or PE history. - Chronic conditions affecting care: CAD (s/p PCI); CKD stage III; HTN; HLD; Afib - Differential diagnoses include, but are not limited to: DVT; pulmonary embolism; CHF exacerbation; ACS - Order placed for continuous cardiac monitoring. At this time, monitor showed rate of 84 bpm with normal sinus rhythm, per my interpretation. - External medical records reviewed. - EKG reviewed by myself showed normal sinus rhythm. Rate 88 bpm. QTc 430. No acute ischemic changes. Noted to have occassional PVCs. - Laboratory workup interpreted by myself showed normal WBC; chronic anemia (Hgb 10.2); elevated dimer (4070); stable electrolytes; elevated troponin (18.8); elevated BNP (282) - CXR negative for pneumonia, per my interpretation. Radiologist notes pneumoperitoneum. - Pneumoperitoneum likely secondary to patient's recent abdominal surgical history. She has a nontender abdomen on exam - CT abdomen/pelvis with IV contrast noted to have mild post-operative free air. Noted to have some dilated small bowel loops concerning for postoperative ileus. - 40 mg IV lasix ordered - Bilateral LE US ordered. - CTA chest showed emphysema but no evidence of PE. - Discussion was had with social and political studies professor about patient's case and need for ad mission - Hospitalist, Dr. Virk, consulted for admission - Patient admitted to [facility]ist service for further evaluation and management. ASSESSMENT AND PLAN: Diagnosis: Bilateral lower extremity edema; dyspnea; CHF exacerbation; NSTEMI Plan: Admit Past Med/Surg History Medical History CAD (coronary artery disease) Chronic kidney disease, stage 3 Gout Hearing deficit History of pelvic mass Hx of pancreatitis Hypercholesterolemia Hyperlipidemia Hypertension Loose stools Malignant melanoma of skin Old myocardial infarct Osteopenia Pacemaker Paroxysmal atrial fibrillation Peripheral vascular disease Surgical History History of cataract surgery History of cholecystectomy History of cochlear implant History of heart artery stent History of herniorrhaphy Hx laparoscopic cholecystectomy (11/18/22) S/P cardiac pacemaker procedure S/P left inguinal hernia repair (11/18/22) S/P ORIF (open reduction internal fixation) fracture S/P trigger finger release Family History Family/Other Hearing loss Father Heart disease Mother Cancer Other No family history of adverse response to anesthesia No family history of bleeding disorder Denies family history of Ovarian cancer Chronic kidney disease Breast cancer Colorectal cancer Social History Smoking Status: Never smoker Age Started Using Tobacco: 43; Age Quit Using Tobacco: 63; packs per day: 0.5; Cigarettes Per Day: quit 1998; Second Hand Exposure: Yes (hx); Do You Dip or Chew Tobacco: No; Hx Alcohol Use: Yes Alcohol type: wine Alcohol Intake Frequency: Monthly or Less Hx Substance Use: No Preferred Language: Montserratian Communication Ability: Effective Visual Impairment: No Limitations Mortar Carrier Required: No Beliefs That Will Affect Care: None marital status: / Current Living Situation: Family Current Living Situation Comment: sons How many Children do You have: 5 Feels Safe at Home: Yes Diet: regular during the past year weight has: decreased > 10 lbs Assistive Devices: Glasses, Hearing Aid - Bilateral and Walker Allergies Allergies Allergy/AdvReac Type Severity Reaction Status Date / Time heparin Allergy Severe Thrombocytopenia; Verified 03/25/23 09:04 NEUTROPENIA Penicillins Allergy Intermediate Hives; Verified 03/25/23 09:04 SYNCOPE Home Meds Home Medications Medication Instructions Recorded Confirmed ezetimibe 10 mg-simvastatin 40 mg 1 tab PO PM ##0 09/19/06 03/25/23 tablet (Vytorin) nitroglycerin 0.4 mg sublingual 0.4 mg sublingual UD PRN Chest 04/05/13 03/25/23 tablet (Nitrostat) Pain #0 BTLS allopurinol 300 mg tablet 300 mg PO QAM ##90 02/13/17 03/25/23 aspirin 81 mg chewable tablet 81 mg PO QAM 04/22/21 03/25/23 isosorbide mononitrate 30 mg 30 mg PO QAM 05/19/21 03/25/23 tablet,extended release 24 hr metoprolol tartrate 25 mg tablet 25 mg PO BID 05/19/21 03/25/23 calcium carbonate 500 mg-vitamin 1 tab PO BID 09/11/21 03/25/23 D3 10 mcg (400 unit) tablet (Calcium 500 + D) alendronate 70 mg tablet (Fosamax) 70 mg PO .once a week 05/03/22 03/25/23 acetaminophen 500 mg tablet 500 mg PO QID PRN Pain 11/10/22 03/25/23 (Tylenol Extra Strength) Previous Rx's Medication Instructions Recorded furosemide 20 mg tablet 20 mg PO DAILY PRN swelling #30 09/06/22 tabs apixaban 5 mg tablet 5 mg PO BID #180 tabs 10/06/22 Results & Data (ED) Vital Signs Vital Signs - 24 hr 04/07/23 16:12 04/07/23 16:56 04/07/23 17:38 Temperature 36.7 C Temperature Source Temporal Artery Scan Pulse Rate 115 H 83 Pulse Rate from SpO2 Sensor Respiratory Rate 18 Respiratory Effort / Characteristics Non-Labored Non-Labored Respiratory Depth Normal Normal Respiratory Pattern Regular Regular Blood Pressure 105/70 Blood Pressure Mean 81 Pulse Oximetry 95 Oxygen Delivery Method Room Air Room Air Sepsis Recent Fever Within 48 Hours No Sepsis New/Unexplained Change in Mental Status N/A Sepsis Action Taken by Nursing No Action Required 04/07/23 18:00 04/07/23 17:39 04/07/23 18:00 Temperature Temperature Source Pulse Rate 92 H 83 Pulse Rate from SpO2 Sensor 92 H 84 Respiratory Rate 28 H 33 H Respiratory Effort / Characteristics Respiratory Depth Normal Respiratory Pattern Blood Pressure 122/78 Blood Pressure Mean 92 Pulse Oximetry 97 95 Oxygen Delivery Method Sepsis Recent Fever Within 48 Hours Sepsis New/Unexplained Change in Mental Status Sepsis Action Taken by Nursing Laboratory Data 04/07/23 17:22 04/07/23 17:22 Lab Results 04/07/23 04/07/23 04/07/23 Range/Units 17:22 17:22 17:22 WBC 10.02 (4.8-10.8) K/ul RBC 3.31 L (4.20-5.40) M/uL Hgb 10.2 L (12.0-16.0) g/dl Hct 31.6 L (37.0-47.0) % MCV 95.5 (80.0-100.0) fL MCH 30.8 (25.0-34.0) pg MCHC 32.3 (32.0-36.0) g/dL RDW Std Deviation 50.7 H (36.4-46.3) fL RDW Coeff of Debby 15.0 H (11.5-14.5) % Plt Count 211 (130-400) K/uL MPV 9.6 (9.4-12.4) fL Immature Gran % (Auto) 0.5 % Neut % (Auto) 77.0 % Lymph % (Auto) 9.2 % Lincoln % (Auto) 11.7 % Eos % (Auto) 1.2 % Baso % (Auto) 0.4 % Neut # (Auto) 7.72 H (1.40-6.50) K/uL Lymph # (Auto) 0.92 L (1.20-3.40) K/uL Lincoln # (Auto) 1.17 H (0.11-0.59) K/uL Eos # (Auto) 0.12 (0.00-0.50) K/uL Baso # (Auto) 0.04 (0.00-0.20) K/uL Immature Gran # (Auto) 0.05 (0.01-0.20) K/uL D-Dimer 4070 H* (0-500) ug/L FEU Sodium 137 (136-145) mmol/L Potassium 4.0 (3.5-5.1) mmol/L Chloride 95 L (98-107) mmol/L Carbon Dioxide 36 H (21-32) mmol/L Anion Gap 6 (3-11) BUN 13 (6-23) mg/dl Creatinine 0.90 (0.6-1.2) mg/dl Est Cr Clr Drug Dosing 39.1 ml/min Est GFR ( Amer) 67.1 ml/min Est GFR (Non-Af Amer) 57.9 ml/min BUN/Creatinine Ratio 14.4 (10-20) Glucose 122 H (70-99(Fasting)) mg/dl Calcium 9.4 (8.6-10.3) mg/dl Total Bilirubin 0.9 (0.2-1.0) mg/dl AST 22 (13-39) U/L ALT 12 (7-52) U/L Alkaline Phosphatase 66 (34-104) U/L Troponin I High Sens 18.8 H (0-14) pg/ml B-Natriuretic Peptide (0-100) pg/ml Total Protein 6.9 (6.0-8.3) gm/dl Albumin 3.1 L (3.4-5.0) gm/dl Globulin 3.8 (2.5-4.0) gm/dl Albumin/Globulin Ratio 0.8 L (0.9-2) 04/07/23 Range/Units 17:22 WBC (4.8-10.8) K/ul RBC (4.20-5.40) M/uL Hgb (12.0-16.0) g/dl Hct (37.0-47.0) % MCV (80.0-100.0) fL MCH (25.0-34.0) pg MCHC (32.0-36.0) g/dL RDW Std Deviation (36.4-46.3) fL RDW Coeff of Debby (11.5-14.5) % Plt Count (130-400) K/uL MPV (9.4-12.4) fL Immature Gran % (Auto) % Neut % (Auto) % Lymph % (Auto) % Lincoln % (Auto) % Eos % (Auto) % Baso % (Auto) % Neut # (Auto) (1.40-6.50) K/uL Lymph # (Auto) (1.20-3.40) K/uL Lincoln # (Auto) (0.11-0.59) K/uL Eos # (Auto) (0.00-0.50) K/uL Baso # (Auto) (0.00-0.20) K/uL Immature Gran # (Auto) (0.01-0.20) K/uL D-Dimer (0-500) ug/L FEU Sodium (136-145) mmol/L Potassium (3.5-5.1) mmol/L Chloride (98-107) mmol/L Carbon Dioxide (21-32) mmol/L Anion Gap (3-11) BUN (6-23) mg/dl Creatinine (0.6-1.2) mg/dl Est Cr Clr Drug Dosing ml/min Est GFR ( Amer) ml/min Est GFR (Non-Af Amer) ml/min BUN/Creatinine Ratio (10-20) Glucose (70-99(Fasting)) mg/dl Calcium (8.6-10.3) mg/dl Total Bilirubin (0.2-1.0) mg/dl AST (13-39) U/L ALT (7-52) U/L Alkaline Phosphatase (34-104) U/L Troponin I High Sens (0-14) pg/ml B-Natriuretic Peptide 282 H (0-100) pg/ml Total Protein (6.0-8.3) gm/dl Albumin (3.4-5.0) gm/dl Globulin (2.5-4.0) gm/dl Albumin/Globulin Ratio (0.9-2) Administered Medications Discontinued Medications Ioversol (Ioversol 350 Mg 125ml Prefilled Syringe) 91 ml IV ONCE ONE Stop: 04/07/23 19:11 Last Admin: 04/07/23 19:11 Dose: 91 ml Documented By: TONJA Imaging Data Radiologist's Impression: Chest X-Ray 04/07/23 16:19 XR chest 1V portable HISTORY: 87 years-old Female Sob acute shortness of breath COMPARISON: Chest CT 03/16/2023 TECHNIQUE: PA view the chest FINDINGS: Cardiac silhouette is enlarged. 3-lead left subclavian pacer. Coronary arterial stent. No pneumothorax, pleural effusion, airspace consolidation or pulmonary edema. Chronic appearing right-sided rib fractures. Subdiaphragmatic lucencies are noted with subcutaneous emphysema of the lateral left chest wall. Cholecystectomy. Mild gaseous distention of the transverse colon stomach. IMPRESSION: 1. Pneumoperitoneum with subcutaneous emphysema of the lateral chest and abdominal wall. Correlate with surgical history. If the patient has no history of recent surgery, correlation with CT abdomen and pelvis recommended. 2. Cardiomegaly without pulmonary edema. ACT 112: Negative or not required by law. The above report was generated using voice recognition software. It may contain grammatical, syntax or spelling errors. Electronically signed by: Corby Gamez M.D. 04/07/2023 6:14 PM Abdomen/Pelvis CT 04/07/23 18:19 Exam(s): CT ABDOMEN + PELVIS With Contrast IV Amt: 91ml optiray 320 EXAM: CT Abdomen and Pelvis With Intravenous Contrast CLINICAL HISTORY: Reason for exam: recent abdominal surgery; pneumoperitoneum. TECHNIQUE: Axial computed tomography images of the abdomen and pelvis with intravenous contrast. CTDI is 42.19 mGy and DLP is 1044.12 mGy-cm. Automated exposure control was utilized for the study. A dose lowering technique was utilized adhering to the principles of ALARA. CONTRAST: Patient received 91ml optiray 320 of IV contrast COMPARISON: No relevant prior studies available. FINDINGS: Lung bases: Unremarkable. No mass. No consolidation. ABDOMEN: Liver: Unremarkable. No mass. Gallbladder and bile ducts: Unremarkable. No calcified stones. No ductal dilation. Pancreas: Unremarkable. No mass. No ductal dilation. Spleen: Unremarkable. No splenomegaly. Adrenals: Unremarkable. No mass. Kidneys and ureters: Unremarkable. No hydronephrosis or delayed nephrogram. Stomach and bowel: Fluid-filled dilated small bowel measures up to 1.9 cm, concerning for postoperative ileus. No mucosal thickening. PELVIS: Appendix: No findings to suggest acute appendicitis. Bladder: Unremarkable. No mass. Reproductive: Unremarkable as visualized. ABDOMEN and PELVIS: Intraperitoneal space: Recent abdominal surgery with partial colonic resection. Anastomotic sutures are present in the region of the sigmoid colon. Mild postoperative free air in the abdomen. Mild postoperative fluid in the pelvis, without well-formed collection or abscess. Bones/joints: Degenerative changes of the spine. No acute fracture. No dislocation. Soft tissues: Unremarkable. Vasculature: Infrarenal abdominal aortic aneurysm, measures 2.7 cm anteroposterior. Atherosclerotic changes of the aorta. Lymph nodes: Unremarkable. No enlarged lymph nodes. IMPRESSION: 1. Recent abdominal surgery with partial colonic resection. Anastomotic sutures are present in the region of the sigmoid colon. Mild postoperative free air in the abdomen. 2. Fluid-filled dilated small bowel measures up to 1.9 cm, concerning for postoperative ileus. 3. Infrarenal abdominal aortic aneurysm, measures 2.7 cm anteroposterior. 4. Mild postoperative fluid in the pelvis, without well-formed collection or abscess. Electronically signed by: Gustavo Leblanc MD 04/07/23 20:22 PM Chest CTA 04/07/23 18:47 Exam(s): CTA CHEST IV Amt: 91ml optiray 320 EXAM: CT Angiography Chest With Intravenous Contrast CLINICAL HISTORY: Reason for exam: PE. TECHNIQUE: Axial computed tomographic angiography images of the chest with intravenous contrast. CTDI is 42.19 mGy and DLP is 1044.12 mGy-cm. Automated exposure control was utilized for the study. A dose lowering technique was utilized adhering to the principles of ALARA. MIP reconstructed images were created and reviewed. COMPARISON: No relevant prior studies available. FINDINGS: Pulmonary arteries: Unremarkable. No acute pulmonary embolism. Aorta: Atherosclerotic changes of the aorta, with coronary involvement. No thoracic aortic aneurysm. Lungs: COPD, consisting of increased AP diameter of the chest and flattening of the diaphragms. Emphysema. No focal infiltrate or pneumothorax. Pleural space: See above. Heart: Cardiomegaly. Bones/joints: Degenerative changes of the spine. No acute fracture. No dislocation. Soft tissues: See below. Lymph nodes: Unremarkable. No enlarged lymph nodes. Intraperitoneal space: Air in the LEFT axilla from recent intra- abdominal surgery. Tubes, lines and devices: Pacemaker leads. IMPRESSION: 1. COPD, consisting of increased AP diameter of the chest and flattening of the diaphragms. Emphysema. No focal infiltrate or pneumothorax. 2. No acute pulmonary embolism. 3. Atherosclerotic changes of the aorta, with coronary involvement. Electronically signed by: Gustavo Leblanc MD 04/07/23 20:09 PM Discharge Plan Visit Data Chief Complaint: Referred by Doctor Stated Complaint: LEG EVALATION ED Provider: Sarah Quezada Discharge Problem: Acute dyspnea, Acute exacerbation of CHF (congestive heart failure), Non-ST elevation AR (NSTEMI), Bilateral edema of lower extremity Forms Stand Alone Forms: [employer] Prescriptions Prescriptions: No Action ezetimibe-simvastatin [Vytorin 10-40] 10-40 mg Tablet 1 tab PO PM Qty: 0 nitroglycerin [Nitrostat] 0.4 mg Tablet, Sublingual 0.4 mg sublingual UD PRN (Reason: Chest Pain) Qty: 0 Rx Instructions: q5 min prn x3 allopurinol 300 mg Tablet 300 mg PO QAM Qty: 90 apixaban 5 mg tablet 5 mg PO BID Qty: 180 3RF calcium carbonate-vitamin D3 [Calcium 500 + D] 500 mg-10 mcg (400 unit) tablet 1 tab PO BID alendronate [Fosamax] 70 mg tablet 70 mg PO .once a week furosemide 20 mg tablet 20 mg PO DAILY PRN (Reason: swelling) Qty: 30 1RF aspirin 81 mg tablet,chewable 81 mg PO QAM metoprolol tartrate 25 mg Tablet 25 mg PO BID isosorbide mononitrate 30 mg tablet extended release 24 hr 30 mg PO QAM acetaminophen [Tylenol Extra Strength] 500 mg Tablet 500 mg PO QID PRN (Reason: Pain) Referrals Referrals: Fco Vazquez MD [Primary Care Provider] -
[2023-04-07 17:56] LABS: Basophils # (auto) 0.04 K/uL (0.00-0.20); Basophils % (auto) 0.4 %; Eosinophils # (auto) 0.12 K/uL (0.00-0.50); Eosinophils % (auto) 1.2 %; Hematocrit (blood only) 31.6 % (37.0-47.0); Hemoglobin 10.2 g/dl (12.0-16.0); Immature Granulocytes # (auto) 0.05 K/uL (0.01-0.20); Immature Granulocytes % (auto) 0.5 %; Lymphocytes # (auto) 0.92 K/uL (1.20-3.40); Lymphocytes % (auto) 9.2 %; Mean Corpuscular Hemoglobin 30.8 pg (25.0-34.0); Mean Corpuscular Hgb Conc 32.3 g/dL (32.0-36.0); Mean Corpuscular Volume 95.5 fL (80.0-100.0); Mean Platelet Volume 9.6 fL (9.4-12.4); Monocytes # (auto) 1.17 K/uL (0.11-0.59); Monocytes % (auto) 11.7 %; Neutrophils # (auto) 7.72 K/uL (1.40-6.50); Platelet Count 211 K/uL (130-400); RDW Standard Deviation 50.7 fL (36.4-46.3); Red Blood Count 3.31 M/uL (4.20-5.40); White Blood Count 10.02 K/ul (4.8-10.8)
[2023-04-07 18:14] LABS: Albumin Globulin Ratio 0.8 (0.9-2); Albumin Level 3.1 gm/dl (3.4-5.0); BUN Creatinine Ratio 14.4 (10-20); Bilirubin,Total 0.9 mg/dl (0.2-1.0); Calcium 9.4 mg/dl (8.6-10.3); Creatinine Clr Calc Pharmacy 39.1 ml/min; Est GFR (African American) 67.1 ml/min; Est GFR (Non-African American) 57.9 ml/min; Globulin 3.8 gm/dl (2.5-4.0); Total Protein 6.9 gm/dl (6.0-8.3)
--- NOTE | 2023-04-07 18:16 | XRay Report ---
XR chest 1V portable HISTORY: 87 years-old Female Sob acute shortness of breath COMPARISON: Chest CT 03/16/2023 TECHNIQUE: PA view the chest FINDINGS: Cardiac silhouette is enlarged. 3-lead left subclavian pacer. Coronary arterial stent. No pneumothora x, pleural effusion, airspace consolidation or pulmonary edema. Chronic appearing right-sided rib fra ctures. Subdiaphragmatic lucencies are noted with subcutaneous emphysema of the lateral left chest wa ll. Cholecystectomy. Mild gaseous distention of the transverse colon stomach. IMPRESSION: 1. Pneumoperitoneum with subcutaneous emphysema of the lateral chest and abdominal wall. Correlate wi th surgical history. If the patient has no history of recent surgery, correlation with CT abdomen and pelvis recommended. 2. Cardiomegaly without pulmonary edema. ACT 112: Negative or not required by law. The above report was generated using voice recognition software. It may contain grammatical, syntax o r spelling errors. Electronically signed by: Corby Gamez M.D. 04/07/2023 6:14 PM
[2023-04-07 18:20] LABS: Troponin I High Sensitivity 18.8 pg/ml (0-14)
[2023-04-07 18:47] LABS: D Dimer 4070 ug/L FEU (0-500)
[2023-04-07] MEDS ORDERED: IOVERSOL 350 MG 125mL Prefilled Syringe IV ONE (19:10)
[2023-04-07] MEDS ORDERED: FUROSEMIDE 40 MG/4 ML VIAL IV ONE (20:09)
--- NOTE | 2023-04-07 20:10 | CT Scan Report ---
Exam(s): CTA CHEST IV Amt: 91ml optiray 320 EXAM: CT Angiography Chest With Intravenous Contrast CLINICAL HISTORY: Reason for exam: PE. TECHNIQUE: Axial computed tomographic angiography images of the chest with intravenous contrast. CTDI is 42.19 mGy and DLP is 1044.12 mGy-cm. Automated exposure control was utilized for the study. A dose lowering technique was utilized adhering to the principles of ALARA. MIP reconstructed images were created and reviewed. COMPARISON: No relevant prior studies available. FINDINGS: Pulmonary arteries: Unremarkable. No acute pulmonary embolism. Aorta: Atherosclerotic changes of the aorta, with coronary involvement. No thoracic aortic aneurysm. Lungs: COPD, consisting of increased AP diameter of the chest and flattening of the diaphragms. Emphysema. No focal infiltrate or pneumothorax. Pleural space: See above. Heart: Cardiomegaly. Bones/joints: Degenerative changes of the spine. No acute fracture. No dislocation. Soft tissues: See below. Lymph nodes: Unremarkable. No enlarged lymph nodes. Intraperitoneal space: Air in the LEFT axilla from recent intra- abdominal surgery. Tubes, lines and devices: Pacemaker leads. IMPRESSION: 1. COPD, consisting of increased AP diameter of the chest and flattening of the diaphragms. Emphysema. No focal infiltrate or pneumothorax. 2. No acute pulmonary embolism. 3. Atherosclerotic changes of the aorta, with coronary involvement. Electronically signed by: Gustavo Leblanc MD 04/07/23 20:09 PM
--- NOTE | 2023-04-07 20:23 | CT Scan Report ---
Exam(s): CT ABDOMEN + PELVIS With Contrast IV Amt: 91ml optiray 320 EXAM: CT Abdomen and Pelvis With Intravenous Contrast CLINICAL HISTORY: Reason for exam: recent abdominal surgery; pneumoperitoneum. TECHNIQUE: Axial computed tomography images of the abdomen and pelvis with intravenous contrast. CTDI is 42.19 mGy and DLP is 1044.12 mGy-cm. Automated exposure control was utilized for the study. A dose lowering technique was utilized adhering to the principles of ALARA. CONTRAST: Patient received 91ml optiray 320 of IV contrast COMPARISON: No relevant prior studies available. FINDINGS: Lung bases: Unremarkable. No mass. No consolidation. ABDOMEN: Liver: Unremarkable. No mass. Gallbladder and bile ducts: Unremarkable. No calcified stones. No ductal dilation. Pancreas: Unremarkable. No mass. No ductal dilation. Spleen: Unremarkable. No splenomegaly. Adrenals: Unremarkable. No mass. Kidneys and ureters: Unremarkable. No hydronephrosis or delayed nephrogram. Stomach and bowel: Fluid-filled dilated small bowel measures up to 1.9 cm, concerning for postoperative ileus. No mucosal thickening. PELVIS: Appendix: No findings to suggest acute appendicitis. Bladder: Unremarkable. No mass. Reproductive: Unremarkable as visualized. ABDOMEN and PELVIS: Intraperitoneal space: Recent abdominal surgery with partial colonic resection. Anastomotic sutures are present in the region of the sigmoid colon. Mild postoperative free air in the abdomen. Mild postoperative fluid in the pelvis, without well-formed collection or abscess. Bones/joints: Degenerative changes of the spine. No acute fracture. No dislocation. Soft tissues: Unremarkable. Vasculature: Infrarenal abdominal aortic aneurysm, measures 2.7 cm anteroposterior. Atherosclerotic changes of the aorta. Lymph nodes: Unremarkable. No enlarged lymph nodes. IMPRESSION: 1. Recent abdominal surgery with partial colonic resection. Anastomotic sutures are present in the region of the sigmoid colon. Mild postoperative free air in the abdomen. 2. Fluid-filled dilated small bowel measures up to 1.9 cm, concerning for postoperative ileus. 3. Infrarenal abdominal aortic aneurysm, measures 2.7 cm anteroposterior. 4. Mild postoperative fluid in the pelvis, without well-formed collection or abscess. Electronically signed by: Gustavo Leblanc MD 04/07/23 20:22 PM
--- NOTE | 2023-04-07 20:44 | History & Physical Report ---
Date of Service April 07, 2023 Assessment & Plan (1) Acute exacerbation of CHF (congestive heart failure): Plan: -Admit to med tele -Currently stable and in no respiratory distress -At this time the patient's DORAN since discharge from [facility] is most consistent with acute CHF exacerbation -Patient was given IV fluids for hypotension during her admission, has significant BL pitting edema in the LE's, increased BNP of 282, JVD, and signs of pulmonary congestion on CXR -Extensive imaging obtained in the ED is negative for signs of pneumonia, pneumothorax, PE -BL Venous doppler negative for DVT -Will be given 40 mg IV lasix in the ED shortly, will continue with 20 mg IV bid starting tomorrow -Will have night resident print out DC summary from last admission at [place] -Monitor intake/output and daily weights -Home Eliquis for DVT PPX -HH diet with 1800 ml fluid restriction and soft/bite sized texture -AM CBC, CMP, Mag, PT/INR (2) Bilateral edema of lower extremity: Plan: -Likely due to acute CHF exacerbation and recent deconditioning from hospitalization -Continue IV diuresis -Will order BL, knee high ROSE's -PT consult placed to ensure she continues to regain her strength (3) Postoperative ileus: Plan: -Noted on CT of the abd/pelvis today, negative for obstruction -Patient has not had a BM today, likely due to recent bowel surgery -Had been having bowel movements over the past several days -Will give a dose of miralax now then continue daily prn for constipation -Monitor for worsening symptoms, re-image if necessary (4) Elevated troponin: Plan: -Initial high sen trop minimally elevated at 18.8 -Patient is without chest pain/pressure -No acute ST segment or T-wave changes on ECG -Likely due to demand from acute CHF exacerbation -Will repeat a 2 hour trop now -Monitor on tele (5) Ischemic cardiomyopathy: Plan: -S/P pacemaker placement -Continue IV diuresis -Continue Imdur -Will restart her home dose of BID metoprolol tartrate tonight and monitor for adverse reactions (6) Gouty arthropathy, unspecified: Plan: -Continue allopurinol (7) CAD (coronary artery disease): Plan: -Stable -No recent anginal symptoms -Supposed to restart aspirin on 04/10; hold for now -Continue metoprolol restarted on admission (8) Paroxysmal atrial fibrillation: Plan: -Stable -Continue Eliquis -Will restart metoprolol tonight (9) Hypertension: Plan: -Stable -Monitor for hypotension with IV diuresis and restarting metoprolol (10) Hyperlipidemia: Plan: -Continue statin Plan The patient was discussed with Dr. 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 In the ED the patient was initially tachypneic at 33 but otherwise stable. Labs were significant for a d-dimer of 4070, bicarb of 36 with chloride of 95, initial high sen trop of 18, BNP of 282. Chest xray was read as "1. Pneumoperitoneum with subcutaneous emphysema of the lateral chest and abdominal wall. Correlate with surgical history. If the patient has no history of recent surgery, correlation with CT abdomen and pelvis recommended. 2. Cardiomegaly without pulmonary edema.". CTA of the chest was read as "1. COPD, consisting of increased AP diameter of the chest and flattening of the diaphragms. Emphysema.No focal infiltrate or pneumothorax. 2. No acute pulmonary embolism. 3. Atherosclerotic changes of the aorta, with coronary involvement.". And CT of the abd/pelvis w/IV con was read as "1. Recent abdominal surgery with partial colonic resection. Anastomotic sutures are present in the region of the sigmoid colon. Mild postoperative free air in the abdomen. 2. Fluid-filled dilated small bowel measures up to 1.9 cm, concerning for postoperative ileus. 3. Infrarenal abdominal aortic aneurysm, measures 2.7 cm anteroposterior. 4. Mild postoperative fluid in the pelvis, without well- formed collection or abscess.". Prior to admission the patient was ordered 40 mg IV lasix. At the time of the exam the patient was sitting in bed in no acute distress with her son sitting bedisde. She states that she was admitted to [facility] from 03/29-04/03 for partial colon resection due to recently diagnosed sigmoid colon mass. She explains that they had to convert the laparoscopic procedure to an open procedure due to the size of the mass. She and her son explain that at points in the admission her blood pressure was "very low". They deny her needing to go to the ICU or needing vasopressors, but they state that she was given a large amount of IV fluids. She also explains that her metoprolol was stopped on discharge, but they did not tell her why. Since dis charge home she has been doing well with her surgical site. She has been ambulating well and her abdominal pain has been well controlled. Since discharge she has been significantly more SOB with exertion than prior to her surgery. She is still able to walk up her flight up steps at home, but was more winded than normal. Her BL LE's have been much more swollen since discharge than her baseline. She had been taking 20 mg PO lasix daily over the past 2 days without significant improvement in her symptoms. She denies recent fever, chills, chest pain, cough, dysuria, hematuria, melena, diarrhea, and recent trauma. We discussed code status, the patient wishes to be a conditional code. She would NOT want CPR/defibrillation in the event of cardiac arrest. She would want a trial of intubation in the event of respiratory failure. Her youngest Son, Gonzalez, is her POA. Please refer to Dr. Virk's attestation for any changes to the treatment plan Allergies Allergy/AdvReac Type Severity Reaction Status Date / Time heparin Allergy Severe Thrombocytopenia; Verified 03/25/23 09:04 NEUTROPENIA Penicillins Allergy Intermediate Hives; Verified 03/25/23 09:04 SYNCOPE Home Medications Medication Instructions Recorded Confirmed Type ezetimibe 10 mg-simvastatin 40 mg 1 tab PO PM ##0 09/19/06 04/07/23 History tablet (Vytorin) nitroglycerin 0.4 mg sublingual 0.4 mg sublingual UD PRN Chest 04/05/13 04/07/23 History tablet (Nitrostat) Pain #0 BTLS allopurinol 300 mg tablet 300 mg PO QAM ##90 02/13/17 04/07/23 History aspirin 81 mg chewable tablet 81 mg PO QAM 04/22/21 04/07/23 History isosorbide mononitrate 30 mg 30 mg PO QAM 05/19/21 04/07/23 History tablet,extended release 24 hr metoprolol tartrate 25 mg tablet 25 mg PO BID 05/19/21 04/07/23 History calcium carbonate 500 mg-vitamin 1 tab PO BID 09/11/21 04/07/23 History D3 10 mcg (400 unit) tablet (Calcium 500 + D) alendronate 70 mg tablet (Fosamax) 70 mg PO WK 05/03/22 04/07/23 History apixaban 5 mg tablet 5 mg PO BID #180 tabs 10/06/22 04/07/23 Rx acetaminophen 500 mg tablet 500 mg PO QID PRN Pain 11/10/22 04/07/23 History (Tylenol Extra Strength) furosemide 20 mg tablet 20 mg PO DAILY 04/07/23 04/07/23 History Past Med/Surg History Medical History CAD (coronary artery disease) Chronic kidney disease, stage 3 Gout Hearing deficit History of pelvic mass Hx of pancreatitis Hypercholesterolemia Hyperlipidemia Hypertension Loose stools Malignant melanoma of skin Old myocardial infarct Osteopenia Pacemaker Paroxysmal atrial fibrillation Peripheral vascular disease Surgical History History of cataract surgery History of cholecystectomy History of cochlear implant History of heart artery stent History of herniorrhaphy Hx laparoscopic cholecystectomy (11/18/22) S/P cardiac pacemaker procedure S/P left inguinal hernia repair (11/18/22) S/P ORIF (open reduction internal fixation) fracture S/P trigger finger release Family History Family/Other Hearing loss Father Heart disease Mother Cancer Other No family history of adverse response to anesthesia No family history of bleeding disorder Denies family history of Ovarian cancer Chronic kidney disease Breast cancer Colorectal cancer Social History Smoking Status: Never smoker Age Started Using Tobacco: 43; Age Quit Using Tobacco: 63; packs per day: 0.5; Cigarettes Per Day: quit 1998; Second Hand Exposure: Yes (hx); Do You Dip or Chew Tobacco: No; Hx Alcohol Use: Yes Alcohol type: wine Alcohol Intake Frequency: Monthly or Less Hx Substance Use: No Preferred Language: Lao Communication Ability: Effective Visual Impairment: No Limitations Hardboard Panel Printer Required: No Beliefs That Will Affect Care: None marital status: / Current Living Situation: Family Current Living Situation Comment: sons How many Children do You have: 5 Feels Safe at Home: Yes Diet: regular during the past year weight has: decreased > 10 lbs Assistive Devices: Glasses, Hearing Aid - Bilateral and Walker Physical Exam Physical Exam: Physical Exam: General: In no acute distress, stated age, well-nourished, good hygiene, non- toxic appearing HEENT: Normocephalic, atraumatic, no scleral icterus, pupils around round, symmetrical, and reactive to light, dry mucus membranes, mild JVD, trachea midline, no thyromegaly Chest/Pulm: No respiratory distress, symmetrical chest expansion, crackles noted in the BL lower lung gross, otherwise CTA Cardiac: irregular rate and rhythm, no murmurs noted Abdomen: Surgical site scars appear intact and healing well, no signs of infection or dehiscence, normoactive bowel sounds, soft, mildly tender to palpation over the lower abdomen Musculoskeletal: Symmetrical and without signs of acute trauma, upper and lower extremities with full ROM, no atrophy, spasticity, or flaccidity Extremities: Radial, dorsalis pedis, and posterior tibial pulses are intact and symmetrical, 2+ pitting edema noted in the BL LE's Skin: Warm, dry, no rashes , lesions, or scars noted Neuro: Alert and oriented to person, place, month, year, and president, no focal defects, no tremors noted Psych: No acute distress, calm and cooperative during the exam Results & Data Results & Data Vital Signs (Past 12 Hours) Vital Signs Temp Pulse Resp BP Pulse Ox O2 Del Method 04/07/23 18:00 83 33 H 122/78 95 04/07/23 17:39 92 H 28 H 97 04/07/23 17:38 83 04/07/23 16:56 Room Air 04/07/23 16:12 36.7 C 115 H 18 105/70 95 Room Air Laboratory Results Abnormal lab results 04/07/23 04/07/23 04/07/23 Range/Units 17:22 17:22 17:22 RBC 3.31 L (4.20-5.40) M/uL Hgb 10.2 L (12.0-16.0) g/dl Hct 31.6 L (37.0-47.0) % RDW Std Deviation 50.7 H (36.4-46.3) fL RDW Coeff of Debby 15.0 H (11.5-14.5) % Neut # (Auto) 7.72 H (1.40-6.50) K/uL Lymph # (Auto) 0.92 L (1.20-3.40) K/uL [place] # (Auto) 1.17 H (0.11-0.59) K/uL D-Dimer 4070 H* (0-500) ug/L FEU Chloride 95 L (98-107) mmol/L Carbon Dioxide 36 H (21-32) mmol/L Glucose 122 H (70-99(Fasting)) mg/dl Troponin I High Sens 18.8 H (0-14) pg/ml B-Natriuretic Peptide (0-100) pg/ml Albumin 3.1 L (3.4-5.0) gm/dl Albumin/Globulin Ratio 0.8 L (0.9-2) 04/07/23 Range/Units 17:22 RBC (4.20-5.40) M/uL Hgb (12.0-16.0) g/dl Hct (37.0-47.0) % RDW Std Deviation (36.4-46.3) fL RDW Coeff of Debby (11.5-14.5) % Neut # (Auto) (1.40-6.50) K/uL Lymph # (Auto) (1.20-3.40) K/uL [place] # (Auto) (0.11-0.59) K/uL D-Dimer (0-500) ug/L FEU Chloride (98-107) mmol/L Carbon Dioxide (21-32) mmol/L Glucose (70-99(Fasting)) mg/dl Troponin I High Sens (0-14) pg/ml B-Natriuretic Peptide 282 H (0-100) pg/ml Albumin (3.4-5.0) gm/dl Albumin/Globulin Ratio (0.9-2) Diagnostic Findings Venous Doppler Study 04/07/23 16:18 Exam(s): US VENOUS BILATERAL LOWER EXTREMITIES EXAM: US Duplex Bilateral Lower Extremities Veins CLINICAL HISTORY: Reason for exam: B/l leg swelling, recent surgery. TECHNIQUE: Real-time duplex ultrasound scan of the bilateral lower extremity veins integrating B-mode two-dimensional vascular structure, Doppler spectral analysis, color flow Doppler imaging and compression. COMPARISON: No relevant prior studies available. FINDINGS: Right deep veins: Unremarkable. No DVT in the right common femoral, femoral, proximal deep femoral or popliteal veins. The veins demonstrate normal color flow, are normally compressible, with normal phasic flow and/or augmentation response. Right superficial veins: Unremarkable. No thrombus in the visualized right great saphenous vein. Left deep veins: Unremarkable. No DVT in the left common femoral, femoral, proximal deep femoral or popliteal veins. The veins demonstrate normal color flow, are normally compressible, with normal phasic flow and/or augmentation response. Left superficial veins: Unremarkable. No thrombus in the visualized left great saphenous vein. Soft tissues: No acute findings. No popliteal cyst. IMPRESSION: Normal bilateral lower extremity duplex venous ultrasound. Electronically signed by: Gustavo Leblanc MD 04/07/23 20:51 PM Chest X-Ray 04/07/23 16:19 XR chest 1V portable HISTORY: 87 years-old Female Sob acute shortness of breath COMPARISON: Chest CT 03/16/2023 TECHNIQUE: PA view the chest FINDINGS: Cardiac silhouette is enlarged. 3-lead left subclavian pacer. Coronary arterial stent. No pneumothorax, pleural effusion, airspace consolidation or pulmonary edema. Chronic appearing right-sided rib fractures. Subdiaphragmatic lucencies are noted with subcutaneous emphysema of the lateral left chest wall. Cholecystectomy. Mild gaseous distention of the transverse colon stomach. IMPRESSION: 1. Pneumoperitoneum with subcutaneous emphysema of the lateral chest and abdominal wall. Correlate with surgical history. If the patient has no history of recent surgery, correlation with CT abdomen and pelvis recommended. 2. Cardiomegaly without pulmonary edema. ACT 112: Negative or not required by law. The above report was generated using voice recognition software. It may contain grammatical, syntax or spelling errors. Electronically signed by: Corby Gamez M.D. 04/07/2023 6:14 PM Abdomen/Pelvis CT 04/07/23 18:19 Exam(s): CT ABDOMEN + PELVIS With Contrast IV Amt: 91ml optiray 320 EXAM: CT Abdomen and Pelvis With Intravenous Contrast CLINICAL HISTORY: Reason for exam: recent abdominal surgery; pneumoperitoneum. TECHNIQUE: Axial computed tomography images of the abdomen and pelvis with intravenous contrast. CTDI is 42.19 mGy and DLP is 1044.12 mGy-cm. Automated exposure control was utilized for the study. A dose lowering technique was utilized adhering to the principles of ALARA. CONTRAST: Patient received 91ml optiray 320 of IV contrast COMPARISON: No relevant prior studies available. FINDINGS: Lung bases: Unremarkable. No mass. No consolidation. ABDOMEN: Liver: Unremarkable. No mass. Gallbladder and bile ducts: Unremarkable. No calcified stones. No ductal dilation. Pancreas: Unremarkable. No mass. No ductal dilation. Spleen: Unremarkable. No splenomegaly. Adrenals: Unremarkable. No mass. Kidneys and ureters: Unremarkable. No hydronephrosis or delayed nephrogram. Stomach and bowel: Fluid-filled dilated small bowel measures up to 1.9 cm, concerning for postoperative ileus. No mucosal thickening. PELVIS: Appendix: No findings to suggest acute appendicitis. Bladder: Unremarkable. No mass. Reproductive: Unremarkable as visualized. ABDOMEN and PELVIS: Intraperitoneal space: Recent abdominal surgery with partial colonic resection. Anastomotic sutures are present in the region of the sigmoid colon. Mild postoperative free air in the abdomen. Mild postoperative fluid in the pelvis, without well-formed collection or abscess. Bones/joints: Degenerative changes of the spine. No acute fracture. No dislocation. Soft tissues: Unremarkable. Vasculature: Infrarenal abdominal aortic aneurysm, measures 2.7 cm anteroposterior. Atherosclerotic changes of the aorta. Lymph nodes: Unremarkable. No enlarged lymph nodes. IMPRESSION: 1. Recent abdominal surgery with partial colonic resection. Anastomotic sutures are present in the region of the sigmoid colon. Mild postoperative free air in the abdomen. 2. Fluid-filled dilated small bowel measures up to 1.9 cm, concerning for postoperative ileus. 3. Infrarenal abdominal aortic aneurysm, measures 2.7 cm anteroposterior. 4. Mild postoperative fluid in the pelvis, without well-formed collection or abscess. Electronically signed by: Gustavo Leblanc MD 04/07/23 20:22 PM Chest CTA 04/07/23 18:47 Exam(s): CTA CHEST IV Amt: 91ml optiray 320 EXAM: CT Angiography Chest With Intravenous Contrast CLINICAL HISTORY: Reason for exam: PE. TECHNIQUE: Axial computed tomographic angiography images of the chest with intravenous contrast. CTDI is 42.19 mGy and DLP is 1044.12 mGy-cm. Automated exposure control was utilized for the study. A dose lowering technique was utilized adhering to the principles of ALARA. MIP reconstructed images were created and reviewed. COMPARISON: No relevant prior studies available. FINDINGS: Pulmonary arteries: Unremarkable. No acute pulmonary embolism. Aorta: Atherosclerotic changes of the aorta, with coronary involvement. No thoracic aortic aneurysm. Lungs: COPD, consisting of increased AP diameter of the chest and flattening of the diaphragms. Emphysema. No focal infiltrate or pneumothorax. Pleural space: See above. Heart: Cardiomegaly. Bones/joints: Degenerative changes of the spine. No acute fracture. No dislocation. Soft tissues: See below. Lymph nodes: Unremarkable. No enlarged lymph nodes. Intraperitoneal space: Air in the LEFT axilla from recent intra- abdominal surgery. Tubes, lines and devices: Pacemaker leads. IMPRESSION: 1. COPD, consisting of increased AP diameter of the chest and flattening of the diaphragms. Emphysema. No focal infiltrate or pneumothorax. 2. No acute pulmonary embolism. 3. Atherosclerotic changes of the aorta, with coronary involvement. Electronically signed by: Gustavo Leblanc MD 04/07/23 20:09 PM ECG Additional Comments: Sinus rhythm with 2nd degree A-V block (Mobitz I) with occasional ventricular- paced complexes Minimal voltage criteria for LVH, may be normal variant ( [place] product ) Inferior infarct , age undetermined Anterolateral infarct , age undetermined Abnormal ECG When compared with ECG of 09-NOV-2022 15:15, Sinus rhythm is now with 2nd degree A-V block (Mobitz I) Vent. rate has increased BY 27 BPM Code Status & VTE Plan Code Status Conditional; No CPR or defibrillation; would want trial of intubation VTE Prophylaxis Plan VTE Prophylaxis will be ordered: Yes Supervising Physician Co-Signing Physician Notes Patient seen and examined, chart reviewed, case discussed with PINA Earl and I agree with the assessment and plan as above. In brief, Barb Mata is a 87yo female with history of CAD, CKD, HTN, HLP and PAF on Eliquis anticoagulation and resolved ischemic cardiomyopathy. She had recent colorectal surgery performed on 03/29/23 with excision of a colon mass. She presents today with persistent DORAN and bilateral LE edema. She has Lasix at home to be taken as needed - she has taken several doses with no improvement. On exam she is afebrile, HD stable, no respiratory distress, adequate oxygenation on RA Skin- intact, no rash HEENT - MMM, neck supple Heart - +S1/S2, regular, no m/r/g Lungs - bibasilar crackles, no rhonchi or wheezes Abd - soft, +BS, well healing surgical wound with no bleeding/drainage/erythema or dehiscence, mildly tender to palpation, no peritonitis Ext - 2+ pitting edema into thighs bilaterally Neuro - Grossly intact Labs and images reviewed. Mildly elevated troponin=18.8--> 27.7, TZN=[id number]-[id number] Negative CTA chest and bilateral LE doppler EKG with no acute ischemic changes Free air on abdominal imaging expected in post-operative setting Assessment/Plan 87yo female presenting with persistent DORAN and LE edema. Recent bowel surgery - likely received IVF which is most likely cause for her edema. She does have a history of ischemic cardiomyopathy (EF of 40% with apical aneurysm in December 2018). Most recent Echo 05/20/21 with recovered EF - 50-55%, regional WMA redemonstrated with dyskinetic/aneurysmal apex Lasix given in ER Repeat troponin has increased slightly to 27.7 Will continue Diuresis with Lasix 20mg IV daily - monitor weight, I/Os Repeat troponin with AM labs Check 2D echo Ileus noted on CT imaging - patient is eating/drinking and having normal BMs and flatus. Monitor Will resume patient's Metoprolol Continue Eliquis Remainder as above PG Care Time/CCT Total # of Minutes Spent Total Time Spent with Patient: Total time spent is greater than 50% in coordination of care (as documented) at patient's floor/unit and/or counseling patient: [place] [address] INT INP/OBS CARE 2MIN Patient Type Established Medical Decision Making Moderate Complexity Diagnoses Acute exacerbation of CHF (congestive heart failure) I50.9 Bilateral edema of lower extremity R60.0 Postoperative ileus K91.89; K56.7 Elevated troponin R77.8 Ischemic cardiomyopathy I25.5 Gouty arthropathy, unspecified M10.9 CAD (coronary artery disease) I25.10 Paroxysmal atrial fibrillation I48.0 Hypertension I10 Hyperlipidemia E78.5
--- NOTE | 2023-04-07 20:52 | Ultrasound Report ---
Exam(s): US VENOUS BILATERAL LOWER EXTREMITIES EXAM: US Duplex Bilateral Lower Extremities Veins CLINICAL HISTORY: Reason for exam: B/l leg swelling, recent surgery. TECHNIQUE: Real-time duplex ultrasound scan of the bilateral lower extremity veins integrating B-mode two-dimensional vascular structure, Doppler spectral analysis, color flow Doppler imaging and compression. COMPARISON: No relevant prior studies available. FINDINGS: Right deep veins: Unremarkable. No DVT in the right common femoral, femoral, proximal deep femoral or popliteal veins. The veins demonstrate normal color flow, are normally compressible, with normal phasic flow and/or augmentation response. Right superficial veins: Unremarkable. No thrombus in the visualized right great saphenous vein. Left deep veins: Unremarkable. No DVT in the left common femoral, femoral, proximal deep femoral or popliteal veins. The veins demonstrate normal color flow, are normally compressible, with normal phasic flow and/or augmentation response. Left superficial veins: Unremarkable. No thrombus in the visualized left great saphenous vein. Soft tissues: No acute findings. No popliteal cyst. IMPRESSION: Normal bilateral lower extremity duplex venous ultrasound. Electronically signed by: Gustavo Leblanc MD 04/07/23 20:51 PM
[2023-04-07] MEDS ORDERED: METOPROLOL TARTRATE 25 MG TAB PO STA (21:26)
[2023-04-07] MEDS ORDERED: POLYETHYLENE (MIRALAX) 17 GM PACK PO STA (21:28)
[2023-04-07] MEDS ORDERED: ACETAMINOPHEN 500 MG TAB PO PRN (22:50)
[2023-04-07] MEDS ORDERED: POLYETHYLENE (MIRALAX) 17 GM PACK PO PRN (22:50)
[2023-04-07] MEDS: APIXABAN 5 MG TABLET PO SCH (23:30)
[2023-04-08 06:48] LABS: Basophils # (auto) 0.04 K/uL (0.00-0.20); Basophils % (auto) 0.4 %; Eosinophils # (auto) 0.19 K/uL (0.00-0.50); Eosinophils % (auto) 2.1 %; Hematocrit (blood only) 28.7 % (37.0-47.0); Hemoglobin 9.5 g/dl (12.0-16.0); Immature Granulocytes # (auto) 0.06 K/uL (0.01-0.20); Immature Granulocytes % (auto) 0.7 %; Lymphocytes # (auto) 1.01 K/uL (1.20-3.40); Lymphocytes % (auto) 11.2 %; Mean Corpuscular Hemoglobin 30.4 pg (25.0-34.0); Mean Corpuscular Hgb Conc 33.1 g/dL (32.0-36.0); Mean Platelet Volume 9.6 fL (9.4-12.4); Monocytes # (auto) 1.25 K/uL (0.11-0.59); Monocytes % (auto) 13.9 %; Neutrophils # (auto) 6.44 K/uL (1.40-6.50); Neutrophils % (auto) 71.7 %; Platelet Count 194 K/uL (130-400); RDW Coefficient of Variation 15.3 % (11.5-14.5); RDW Standard Deviation 49.5 fL (36.4-46.3); Red Blood Count 3.12 M/uL (4.20-5.40); White Blood Count 8.99 K/ul (4.8-10.8)
[2023-04-08 06:54] LABS: INR 1.1 (0.9-1.1); Prothrombin Time 12.4 Seconds (9.0-12.0)
[2023-04-08 07:10] LABS: Albumin Globulin Ratio 0.8 (0.9-2); Albumin Level 2.7 gm/dl (3.4-5.0); BUN Creatinine Ratio 13.8 (10-20); Bilirubin,Total 0.9 mg/dl (0.2-1.0); Creatinine Clr Calc Pharmacy 43.2 ml/min; Est GFR (African American) 77.4 ml/min; Est GFR (Non-African American) 66.8 ml/min; Globulin 3.3 gm/dl (2.5-4.0); Magnesium 1.1 mg/dl (1.7-2.4); Potassium 3.6 mmol/L (3.5-5.1)
[2023-04-08 07:17] LABS: Troponin I High Sensitivity 25.9 pg/ml (0-14)
[2023-04-08] MEDS ORDERED: POTASSIUM CHLORIDE CRTAB 20 MEQ TABCR PO STA (07:51)
[2023-04-08] MEDS: ISOSORBIDE MONO EXTENDED REL 30 MG TABCR PO SCH (08:31)
[2023-04-08] MEDS: APIXABAN 5 MG TABLET PO SCH ×2 (08:31→21:11)
[2023-04-08] MEDS: FUROSEMIDE INJ 20 MG/2 ML VIAL IV SCH ×2 (08:31→17:02)
[2023-04-08] MEDS: allopurinoL 300 MG TAB PO SCH (08:31)
[2023-04-08] MEDS: METOPROLOL TARTRATE 25 MG TAB PO SCH ×2 (08:32→21:11)
[2023-04-08] MEDS: MAGNESIUM SULFATE / D5W 1 GM/100 ML BAG IV SCH ×3 (08:43→12:53)
--- NOTE | 2023-04-08 12:31 | Hospitalist Progress Note ---
Date of Service April 08, 2023 Assessment & Plan (1) Acute exacerbation of CHF (congestive heart failure): Plan: improving with Lasix Patient is showing both diuretic and clinical improvement. Leg swelling improving. Breathing better. Continue with Lasix 20 mg IV twice daily That is already ordered. Monitor ins and outs, daily weights Monitor serial BMP Echocardiogram pending that will help us decide if this is systolic or diastolic CHF. (2) Bilateral edema of lower extremity: Plan: -Likely due to acute CHF exacerbation and recent deconditioning from hospitalization -Continue IV diuresis -PT consult placed to ensure she continues to regain her strength (3) Postoperative ileus: Plan: -Noted on CT of the abd/pelvis today, negative for obstruction -Patient has not had a BM today, likely due to recent bowel surgery -Had been having bowel movements over the past several days -Will give a dose of miralax now then continue daily prn for constipation -Monitor for worsening symptoms, re-image if necessary Encourage ambulation Added Senokot (4) Elevated troponin: Plan: - demand ischemia due to CHF exacerbation Initial high sen trop minimally elevated and has remained flat -Patient is without chest pain/pressure -No acute ST segment or T-wave changes on ECG -Monitor on tele (5) Ischemic cardiomyopathy: Plan: -S/P pacemaker placement -Continue IV diuresis -Continue Imdur - restarted metoprolol twice daily which is her home dose and monitor for adverse reactions (6) Gouty arthropathy, unspecified: Plan: -Continue allopurinol (7) CAD (coronary artery disease): Plan: -Stable -No recent anginal symptoms -Supposed to restart aspirin on 04/10; hold for now -Continue metoprolol restarted on admission (8) Paroxysmal atrial fibrillation: Plan: -Stable -Continue Eliquis -Will restart metoprolol tonight (9) Hypertension: Plan: -Stable -Monitor for hypotension with IV diuresis and restarting metoprolol Blood pressure currently stable now (10) Hyperlipidemia: Plan: -Continue statin Plan The patient was discussed with Dr. Virk at the time of the admission Admission and Anticipated Discharge Date Admission Date: April 07, 2023 Subjective patient feels better overall. She says that she has "urinated quite a bit". Her legs are less puffy. She denies feeling dizzy or lightheaded. She has not had a bowel movement in 3 days. Review of Systems Review of Systems: All systems reviewed & are unremarkable except as noted in Subjective Physical Exam Physical Exam: General: Awake, conversant Heart: S1, S2/regular rate and rhythm, no murmur rubs or gallops Lungs: Clear to auscultation bilaterally. Normal effort Abdomen: Soft/nontender/nondistended. No hepatosplenomegaly Extremities: No clubbing/cyanosis. 2+ pitting bilateral edema. Wrinkles visible due to improving leg swelling Behavior: Appropriate, cooperative Results & Data Results & Data Vital Signs (Past 12 Hours) Vital Signs Temp Pulse Pulse Resp BP Pulse Ox O2 Del Method 04/08/23 11:39 36.7 C 72 16 112/65 94 Room Air 04/08/23 11:21 73 04/08/23 08:25 36.5 C 101 H 20 124/87 96 Room Air 04/08/23 04:50 36.7 C 93 H 18 125/79 96 Room Air 04/08/23 02:53 36.9 C 76 18 117/76 93 Room Air Laboratory Results Abnormal lab results 04/07/23 04/07/23 04/07/23 Range/Units 17:22 17:22 17:22 RBC 3.31 L (4.20-5.40) M/uL Hgb 10.2 L (12.0-16.0) g/dl Hct 31.6 L (37.0-47.0) % RDW Std Deviation 50.7 H (36.4-46.3) fL RDW Coeff of Debby 15.0 H (11.5-14.5) % Neut # (Auto) 7.72 H (1.40-6.50) K/uL Lymph # (Auto) 0.92 L (1.20-3.40) K/uL [place] # (Auto) 1.17 H (0.11-0.59) K/uL PT (9.0-12.0) Seconds D-Dimer 4070 H* (0-500) ug/L FEU Chloride 95 L (98-107) mmol/L Carbon Dioxide 36 H (21-32) mmol/L Glucose 122 H (70-99(Fasting)) mg/dl Magnesium (1.7-2.4) mg/dl Troponin I High Sens 18.8 H (0-14) pg/ml B-Natriuretic Peptide (0-100) pg/ml Albumin 3.1 L (3.4-5.0) gm/dl Albumin/Globulin Ratio 0.8 L (0.9-2) 04/07/23 04/07/23 04/08/23 Range/Units 17:22 21:24 06:09 RBC 3.12 L (4.20-5.40) M/uL Hgb 9.5 L (12.0-16.0) g/dl Hct 28.7 L (37.0-47.0) % RDW Std Deviation 49.5 H (36.4-46.3) fL RDW Coeff of Debby 15.3 H (11.5-14.5) % Neut # (Auto) (1.40-6.50) K/uL Lymph # (Auto) 1.01 L (1.20-3.40) K/uL [place] # (Auto) 1.25 H (0.11-0.59) K/uL PT (9.0-12.0) Seconds D-Dimer (0-500) ug/L FEU Chloride (98-107) mmol/L Carbon Dioxide (21-32) mmol/L Glucose (70-99(Fasting)) mg/dl Magnesium (1.7-2.4) mg/dl Troponin I High Sens 27.7 H (0-14) pg/ml B-Natriuretic Peptide 282 H (0-100) pg/ml Albumin (3.4-5.0) gm/dl Albumin/Globulin Ratio (0.9-2) 04/08/23 04/08/23 Range/Units 06:09 06:09 RBC (4.20-5.40) M/uL Hgb (12.0-16.0) g/dl Hct (37.0-47.0) % RDW Std Deviation (36.4-46.3) fL RDW Coeff of Debby (11.5-14.5) % Neut # (Auto) (1.40-6.50) K/uL Lymph # (Auto) (1.20-3.40) K/uL [place] # (Auto) (0.11-0.59) K/uL PT 12.4 H (9.0-12.0) Seconds D-Dimer (0-500) ug/L FEU Chloride 94 L (98-107) mmol/L Carbon Dioxide 36 H (21-32) mmol/L Glucose (70-99(Fasting)) mg/dl Magnesium 1.1 L (1.7-2.4) mg/dl Troponin I High Sens 25.9 H (0-14) pg/ml B-Natriuretic Peptide (0-100) pg/ml Albumin 2.7 L (3.4-5.0) gm/dl Albumin/Globulin Ratio 0.8 L (0.9-2) PG Care Time/CCT Total # of Minutes Spent Total Time Spent with Patient: Total time spent is greater than 50% in coordination of care (as documented) at patient's floor/unit and/or counseling patient: Coding Level of Care Code 63519 SUB INP/OBS CARE 2/35MIN Diagnoses Acute exacerbation of CHF (congestive heart failure) I50.9 Bilateral edema of lower extremity R60.0 Postoperative ileus K91.89; K56.7 Elevated troponin R77.8 Ischemic cardiomyopathy I25.5 Gouty arthropathy, unspecified M10.9 CAD (coronary artery disease) I25.10 Paroxysmal atrial fibrillation I48.0 Hypertension I10 Hyperlipidemia E78.5
[2023-04-08] MEDS: DOCUSATE SODIUM/SENNA 50/8.6MG TAB PO SCH (12:53)
--- NOTE | 2023-04-08 15:23 | Electrocardiogram Report ---
Test Reason : Blood Pressure : / mmHG Vent. Rate : 088 BPM Atrial Rate : 098 BPM P-R Int : 000 ms QRS Dur : 102 ms QT Int : 356 ms P-R-T Axes : 058 -28 083 degrees QTc Int : 430 ms Sinus rhythm with 2nd degree A-V block (Mobitz I) with occasional ventricular-paced complexes Minimal voltage criteria for LVH, may be normal variant ( [place] product ) Inferior infarct , age undetermined Anterolateral infarct , age undetermined Abnormal ECG When compared with ECG of 09-NOV-2022 15:15, Sinus rhythm is now with 2nd degree A-V block (Mobitz I) Vent. rate has increased BY 27 BPM Confirmed by Korey Coley ([id number]) on 04/08/2023 3:23:25 PM Referred By: REFERRED SELF Confirmed By:Korey Coley
--- NOTE | 2023-04-08 16:01 | XCELERA ---
[id number]
[2023-04-09 06:46] LABS: Basophils # (auto) 0.06 K/uL (0.00-0.20); Basophils % (auto) 0.7 %; Eosinophils # (auto) 0.14 K/uL (0.00-0.50); Eosinophils % (auto) 1.6 %; Hemoglobin 9.5 g/dl (12.0-16.0); Immature Granulocytes # (auto) 0.04 K/uL (0.01-0.20); Immature Granulocytes % (auto) 0.5 %; Lymphocytes # (auto) 0.98 K/uL (1.20-3.40); Lymphocytes % (auto) 11.5 %; Mean Corpuscular Hemoglobin 30.8 pg (25.0-34.0); Mean Corpuscular Hgb Conc 32.8 g/dL (32.0-36.0); Mean Corpuscular Volume 94.2 fL (80.0-100.0); Mean Platelet Volume 9.8 fL (9.4-12.4); Monocytes % (auto) 12.9 %; Neutrophils # (auto) 6.21 K/uL (1.40-6.50); Neutrophils % (auto) 72.8 %; Platelet Count 197 K/uL (130-400); RDW Coefficient of Variation 15.2 % (11.5-14.5); RDW Standard Deviation 50.4 fL (36.4-46.3); Red Blood Count 3.08 M/uL (4.20-5.40); White Blood Count 8.53 K/ul (4.8-10.8)
[2023-04-09 07:10] LABS: Albumin Globulin Ratio 0.8 (0.9-2); Albumin Level 2.7 gm/dl (3.4-5.0); Bilirubin,Total 0.9 mg/dl (0.2-1.0); Calcium 8.7 mg/dl (8.6-10.3); Creatinine Clr Calc Pharmacy 39.9 ml/min; Est GFR (African American) 77.4 ml/min; Est GFR (Non-African American) 66.8 ml/min; Globulin 3.3 gm/dl (2.5-4.0); Magnesium 1.8 mg/dl (1.7-2.4); Potassium 3.9 mmol/L (3.5-5.1)
[2023-04-09 07:23] LABS: INR 1.1 (0.9-1.1); Prothrombin Time 11.9 Seconds (9.0-12.0)
[2023-04-09] MEDS: ISOSORBIDE MONO EXTENDED REL 30 MG TABCR PO SCH (10:33)
[2023-04-09] MEDS: METOPROLOL TARTRATE 25 MG TAB PO SCH ×2 (10:33→21:17)
[2023-04-09] MEDS: DOCUSATE SODIUM/SENNA 50/8.6MG TAB PO SCH (10:33)
[2023-04-09] MEDS: allopurinoL 300 MG TAB PO SCH (10:33)
[2023-04-09] MEDS: APIXABAN 5 MG TABLET PO SCH ×2 (10:33→21:18)
[2023-04-09] MEDS: FUROSEMIDE INJ 20 MG/2 ML VIAL IV SCH (10:34)
--- NOTE | 2023-04-09 11:23 | Hospitalist Progress Note ---
Date of Service April 09, 2023 Assessment & Plan (1) Acute exacerbation of CHF (congestive heart failure): Plan: Acute on chronic systolic congestive heart failure improving with Lasix Switch from IV Lasix to 40 mg of p.o. Lasix p.o. daily starting tomorrow No more IV Lasix today. Already received morning dose. Monitor ins and outs, daily weights Monitor serial BMP Echocardiogram shows depressed EF of 40%. It also shows a possible apical thrombus. Already on Eliquis 5 mg p.o. twice daily. Will consult cardiology to consider DELORES to confirm On metoprolol 25 twice daily On Imdur (2) Bilateral edema of lower extremity: Plan: -Likely due to acute CHF exacerbation and recent deconditioning from hospitalization -Continue diuresis, switch from IV to p.o. -PT consult placed to ensure she continues to regain her strength (3) Postoperative ileus: Plan: -Noted on CT of the abd/pelvis today, negative for obstruction - patient had 2 bowel movements yesterday Encourage ambulation Added Senokot (4) Elevated troponin: Plan: - demand ischemia due to CHF exacerbation Initial high sen trop minimally elevated and has remained flat -Patient is without chest pain/pressure -No acute ST segment or T-wave changes on ECG -Monitor on tele (5) Ischemic cardiomyopathy: Plan: -S/P pacemaker placement -Continue diuresis. Converted to p.o. -Continue Imdur - restarted metoprolol twice daily which is her home dose and monitor for adverse reactions Recent echo showed apical thrombus. Question the need for DELORES. Already on Eliquis. Consult cardiology (6) Gouty arthropathy, unspecified: Plan: -Continue allopurinol (7) CAD (coronary artery disease): Plan: -Stable -No recent anginal symptoms -Supposed to restart aspirin on 04/10; hold for now -Continue metoprolol restarted on admission (8) Paroxysmal atrial fibrillation: Plan: -Stable -Continue Eliquis continue metoprolol (9) Hypertension: Plan: -Stable -Monitor for hypotension with IV diuresis and restarting metoprolol Blood pressure currently stable now (10) Hyperlipidemia: Plan: -Continue statin Admission and Anticipated Discharge Date Admission Date: April 07, 2023 Subjective patient feels better overall. Continues to "urinate a lot". Leg swelling seems to be improving. Review of Systems Review of Systems: All systems reviewed & are unremarkable except as noted in Subjective Physical Exam Physical Exam: General: Awake, conversant Heart: S1, S2/regular rate and rhythm, no murmur rubs or gallops Lungs: Clear to auscultation bilaterally. Normal effort Abdomen: Soft/nontender/nondistended. No hepatosplenomegaly Extremities: No clubbing/cyanosis. 1+ pitting bilateral edema. Wrinkles visible due to improving leg swelling Behavior: Appropriate, cooperative Results & Data Results & Data Vital Signs (Past 12 Hours) Vital Signs Temp Pulse Pulse Resp BP Pulse Ox O2 Del Method 04/09/23 10:53 36.5 C 60 18 101/66 94 Room Air 04/09/23 07:33 36.4 C L 70 18 106/64 93 Room Air 04/09/23 02:34 36.4 C L 78 18 115/74 94 Room Air 04/09/23 01:13 63 04/08/23 23:18 36.9 C 62 16 116/73 93 Room Air PG Care Time/CCT Total # of Minutes Spent Total Time Spent with Patient: Total time spent is greater than 50% in coordination of care (as documented) at patient's floor/unit and/or counseling patient: Coding Level of Care Code 21482 SUB INP/OBS CARE 2/35MIN Diagnoses Acute exacerbation of CHF (congestive heart failure) I50.9 Bilateral edema of lower extremity R60.0 Postoperative ileus K91.89; K56.7 Elevated troponin R77.8 Ischemic cardiomyopathy I25.5 Gouty arthropathy, unspecified M10.9 CAD (coronary artery disease) I25.10 Paroxysmal atrial fibrillation I48.0 Hypertension I10 Hyperlipidemia E78.5
--- NOTE | 2023-04-09 16:50 | Cardiology Consultation ---
Date of Consultation April 09, 2023 Assessment & Plan (1) Acute exacerbation of CHF (congestive heart failure): (2) Elevated troponin: (3) Ischemic cardiomyopathy: (4) Mobitz type II block: (5) CAD (coronary artery disease): (6) Cardiac pacemaker: (7) Paroxysmal atrial fibrillation: (8) Abnormal echocardiogram: Plan #1. Abnormal echocardiogram: She is known to have an ischemic cardiomyopathy that has waxed and waned in severity over the years. She has a known apical a neurysm. On the current study there is a suggestion of apical thrombus. I compared this directly with old studies. It is very possible there is an old apical thrombus, I doubt that this is acute. In any event, she is on systemic anticoagulation and no specific treatment is otherwise required. I do not believe any additional imaging is of value. #2. Ischemic cardiomyopathy: In 2020 the ejection fraction is felt to be normal. There is likely a slight variation with regard to the studies. She is currently on metoprolol tartrate which could be converted to metoprolol succinate. More aggressive treatment for an ischemic cardiomyopathy could also be initiated. I would start with an SGLT2 inhibitor here in the hospital. The renal function continues to be normal Entresto can be considered in the outpatient setting. #3. Coronary artery disease: She is known to have significant coronary disease having suffered an anterior myocardial infarction quite remotely. No recent symptoms suggestive of a new event. Very mildly elevated biomarkers at time of her admission likely related to either decompensated heart failure, recent surgery, recent hypotension and/or anemia. I do not think this is premium representative of a recent [place]. She will continue aggressive secondary prevention with a daily aspirin when its reasonable to restart, metoprolol and Vytorin. #4. Atrial fibrillation: Paroxysmal. Currently in sinus rhythm. On systemic anticoagulation which is appropriately dosed #5. AV conduction disease: Currently in a Mobitz 1 rhythm. History of more high degree AV block. She appears to have normal function of her device based on her EKG. The device was interrogated on 01/24/2023. Normal longevity at that time. Small R waves. Not dependent. 30% ventricular pacing. No reported atrial fibrillation. #6. Mitral regurgitation: Mild this can be followed over time #7. Decompensated systolic heart failure: Likely a result of her recent surgery and volume administration. Her admission H&P suggest she had significant dyspnea, but the patient cannot recall breathing trouble. She was aware of significant lower extremity edema. Again, likely third spacing from her recent surgery. She seems to have responded well to diuretics and has been transitioned to an oral regimen. This could be continued in the outpatient setting until she reaches euvolemia. In the past she has not required any daily diuretic. Renal function electrolytes look good. 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 Of note, the patient recently underwent a sigmoid colectomy at [facility] for a colonic mass. She was in the hospital for 5 days. Some of her medications were changed. Upon return home she noticed the progressive edema and some mild dyspnea. She was advised by her surgeon and primary care physician to present to the hospital for an evaluation. During her hospitalization she did undergo diuresis with improvement in her lower extremity edema. She underwent echocardiography which did not reveal any notable new findings relative to old echocardiograms, but the possibility of left ventricular apical thrombus was raised. At this time the patient is feeling well. She denies breathing trouble and cannot recall feeling short of breath leading up to her admission. She states that her edema is much improved. She states that she recently underwent an ing uinal hernia repair as well in November of this year and subsequently had some element of edema which resolved with diuretic use. She does not use a diuretic on a daily basis. She is been ambulatory around her room. Minimal abdominal discomfort. She is eating and drinking normally. Normal bowel function. Allergies Allergy/AdvReac Type Severity Reaction Status Date / Time heparin Allergy Severe Thrombocytopenia; Verified 03/25/23 09:04 NEUTROPENIA Penicillins Allergy Intermediate Hives; Verified 03/25/23 09:04 SYNCOPE Home Medications Medication Instructions Recorded Confirmed Type ezetimibe 10 mg-simvastatin 40 mg 1 tab PO PM ##0 09/19/06 04/07/23 History tablet (Vytorin) nitroglycerin 0.4 mg sublingual 0.4 mg sublingual UD PRN Chest 04/05/13 04/07/23 History tablet (Nitrostat) Pain #0 BTLS allopurinol 300 mg tablet 300 mg PO QAM ##90 02/13/17 04/07/23 History aspirin 81 mg chewable tablet 81 mg PO QAM 04/22/21 04/07/23 History isosorbide mononitrate 30 mg 30 mg PO QAM 05/19/21 04/07/23 History tablet,extended release 24 hr metoprolol tartrate 25 mg tablet 25 mg PO BID 05/19/21 04/07/23 History calcium carbonate 500 mg-vitamin 1 tab PO BID 09/11/21 04/07/23 History D3 10 mcg (400 unit) tablet (Calcium 500 + D) alendronate 70 mg tablet (Fosamax) 70 mg PO WK 05/03/22 04/07/23 History apixaban 5 mg tablet 5 mg PO BID #180 tabs 10/06/22 04/07/23 Rx acetaminophen 500 mg tablet 500 mg PO QID PRN Pain 11/10/22 04/07/23 History (Tylenol Extra Strength) furosemide 20 mg tablet 20 mg PO DAILY 04/07/23 04/07/23 History Patient History Medical History CAD (coronary artery disease) Chronic kidney disease, stage 3 Gout Hearing deficit History of pelvic mass Hx of pancreatitis Hypercholesterolemia Hyperlipidemia Hypertension Loose stools Malignant melanoma of skin Old myocardial infarct Osteopenia Pacemaker Paroxysmal atrial fibrillation Peripheral vascular disease Surgical History History of cataract surgery History of cholecystectomy History of cochlear implant History of heart artery stent History of herniorrhaphy Hx laparoscopic cholecystectomy (11/18/22) S/P cardiac pacemaker procedure S/P left inguinal hernia repair (11/18/22) S/P ORIF (open reduction internal fixation) fracture S/P trigger finger release Family History Family/Other Hearing loss Father Heart disease Mother Cancer Other No family history of adverse response to anesthesia No family history of bleeding disorder Denies family history of Ovarian cancer Chronic kidney disease Breast cancer Colorectal cancer Social History Smoking Status: Former smoker Age Started Using Tobacco: 43; Age Quit Using Tobacco: 63; packs per day: 0.5; Cigarettes Per Day: quit 1998; Second Hand Exposure: Yes (hx); Do You Dip or Chew Tobacco: No; Hx Alcohol Use: Yes Alcohol type: wine Alcohol Intake Frequency: Monthly or Less Hx Substance Use: No Preferred Language: Polish Communication Ability: Effective Visual Impairment: No Limitations 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 Mood affect appear normal. She answered all questions appropriately. HEENT: Sclerae are anicteric. Pupils are equal and reactive to light and accommodation. Extraocular movements were intact. Neuro: Cranial nerves intact Lungs: Lungs are clear to auscultation bilaterally. There are no rales wheezes or rhonchi. She has normal respiratory effort without use of accessory muscles. There is normal pulmonary excursion. Cardiac: The rhythm was regular. S1 and S2 were normal. There are no murmurs on examination. The PMI was not markedly displaced on palpation. Abdomen: Mild distention with mild tenderness. Extremities: Patient has bilateral radial pulses that are equal in intensity. There is no evidence cyanosis or clubbing. Mild lower extremity edema primarily in the ankles bilaterally Skin: There are no rashes noted on examination today. Results & Data Vital Signs (Past 12 Hours) Vital Signs Temp Pulse Pulse Resp BP Pulse Ox O2 Del Method 04/09/23 08:00 65 04/09/23 15:25 36.5 C 60 18 106/63 94 Room Air 04/09/23 10:53 36.5 C 60 18 101/66 94 Room Air 04/09/23 07:33 36.4 C L 70 18 106/64 93 Room Air Laboratory Results Abnormal Lab Results 04/09/23 04/09/23 04/09/23 06:11 06:11 06:11 WBC 8.53 RBC 3.08 L Hgb 9.5 L Hct 29.0 L MCV 94.2 MCH 30.8 MCHC 32.8 RDW Std Deviation 50.4 H RDW Coeff of Debby 15.2 H Plt Count 197 MPV 9.8 Immature Gran % (Auto) 0.5 Neut % (Auto) 72.8 Lymph % (Auto) 11.5 [place] % (Auto) 12.9 Eos % (Auto) 1.6 Baso % (Auto) 0.7 Neut # (Auto) 6.21 Lymph # (Auto) 0.98 L [place] # (Auto) 1.10 H Eos # (Auto) 0.14 Baso # (Auto) 0.06 Immature Gran # (Auto) 0.04 PT 11.9 INR 1.1 Sodium 133 L Potassium 3.9 Chloride 94 L Carbon Dioxide 35 H Anion Gap 4 BUN 12 Creatinine 0.80 Est Cr Clr Drug Dosing 39.9 Est GFR ( Amer) 77.4 Est GFR (Non-Af Amer) 66.8 BUN/Creatinine Ratio 15.0 Glucose 94 Calcium 8.7 Magnesium 1.8 Total Bilirubin 0.9 AST 15 ALT 7 Alkaline Phosphatase 54 Total Protein 6.0 Albumin 2.7 L Globulin 3.3 Albumin/Globulin Ratio 0.8 L Diagnostic Findings Chest x-ray obtained on admission revealed the pneumoperitoneum. No acute lung findings. No evidence of pulmonary edema. Chest CTA at the time of admission revealed COPD. No pulmonary embolus. Abdominal CT revealed pneumoperitoneum. Possible partial small bowel obstruction with dilated small bowel. Infrarenal abdominal aortic aneurysm measuring 2.7 cm. Echocardiogram obtained 04/08/2023: Left ventricular ejection fraction 45 to 50% with anterior apical aneurysm. Apical thrombus cannot be excluded. Mild mitral regurgitation. ECG Additional Comments: EKG obtained at time of admission revealed sinus rhythm with Mobitz 1 AV block and demand ventricular pacing with pseudofusion PG Care Time/CCT Total # of Minutes Spent Total Time Spent with Patient: Total time spent is greater than 50% in coordination of care (as documented) at patient's floor/unit and/or counseling patient: Coding Level of Care Code 02663 INT INP/OBS CARE 3/75MIN Diagnoses Acute exacerbation of CHF (congestive heart failure) I50.9 Elevated troponin R77.8 Ischemic cardiomyopathy I25.5 Mobitz type II block I44.1 CAD (coronary artery disease) I25.10 Cardiac pacemaker Z95.0 Paroxysmal atrial fibrillation I48.0 Abnormal echocardiogram R93.1
[2023-04-10] MEDS ORDERED: MELATONIN 3 MG TAB PO PRN (02:23)
[2023-04-10 06:21] LABS: Basophils # (auto) 0.04 K/uL (0.00-0.20); Basophils % (auto) 0.5 %; Eosinophils # (auto) 0.16 K/uL (0.00-0.50); Hematocrit (blood only) 29.4 % (37.0-47.0); Hemoglobin 9.5 g/dl (12.0-16.0); Immature Granulocytes # (auto) 0.04 K/uL (0.01-0.20); Immature Granulocytes % (auto) 0.5 %; Lymphocytes # (auto) 1.21 K/uL (1.20-3.40); Mean Corpuscular Hemoglobin 30.4 pg (25.0-34.0); Mean Corpuscular Hgb Conc 32.3 g/dL (32.0-36.0); Mean Corpuscular Volume 93.9 fL (80.0-100.0); Mean Platelet Volume 9.6 fL (9.4-12.4); Monocytes # (auto) 1.02 K/uL (0.11-0.59); Monocytes % (auto) 12.6 %; Neutrophils # (auto) 5.62 K/uL (1.40-6.50); Neutrophils % (auto) 69.4 %; Platelet Count 204 K/uL (130-400); RDW Coefficient of Variation 15.5 % (11.5-14.5); Red Blood Count 3.13 M/uL (4.20-5.40); White Blood Count 8.09 K/ul (4.8-10.8)
[2023-04-10 06:53] LABS: Albumin Globulin Ratio 0.8 (0.9-2); Albumin Level 2.8 gm/dl (3.4-5.0); BUN Creatinine Ratio 20.8 (10-20); Bilirubin,Total 0.7 mg/dl (0.2-1.0); Calcium 8.6 mg/dl (8.6-10.3); Creatinine Clr Calc Pharmacy 41.5 ml/min; Est GFR (Non-African American) 69.9 ml/min; Globulin 3.4 gm/dl (2.5-4.0); INR 1.1 (0.9-1.1); Magnesium 1.7 mg/dl (1.7-2.4); Potassium 3.9 mmol/L (3.5-5.1); Prothrombin Time 11.9 Seconds (9.0-12.0); Total Protein 6.2 gm/dl (6.0-8.3)
[2023-04-10] MEDS: allopurinoL 300 MG TAB PO SCH (09:00)
[2023-04-10] MEDS: FUROSEMIDE 40 MG TAB PO SCH (09:00)
[2023-04-10] MEDS: ISOSORBIDE MONO EXTENDED REL 30 MG TABCR PO SCH (09:00)
[2023-04-10] MEDS: METOPROLOL SUCC 50MG EXT REL TAB PO SCH (09:00)
[2023-04-10] MEDS: DOCUSATE SODIUM/SENNA 50/8.6MG TAB PO SCH (09:00)
[2023-04-10] MEDS: APIXABAN 5 MG TABLET PO SCH ×2 (09:00→20:35)
[2023-04-10] MEDS: EMPAGLIFLOZIN 10 MG TAB PO SCH (09:00)
--- NOTE | 2023-04-10 15:10 | Hospitalist Progress Note ---
Date of Service April 10, 2023 Assessment & Plan (1) Acute exacerbation of CHF (congestive heart failure): Plan: Acute on chronic systolic congestive heart failure improving with Lasix Patient was started on p.o. Lasix 40 mg this morning. Monitor ins and outs, daily weights Monitor serial BMP Echocardiogram shows depressed EF of 40%. It also shows a possible apical thrombus. Already on Eliquis 5 mg p.o. twice daily. cardiology did not recommend DELORES. On metoprolol 25 twice daily On Imdur Will need outpatient CHF clinic follow-up (2) Bilateral edema of lower extremity: Plan: -Likely due to acute CHF exacerbation and recent deconditioning from hospitalization -Continue diuresis po -PT consult placed to ensure she continues to regain her strength (3) Postoperative ileus: Plan: -Noted on CT of the abd/pelvis today, negative for obstruction - patient continues to have good bowel movement Encourage ambulation Added Senokot (4) Elevated troponin: Plan: - demand ischemia due to CHF exacerbation Initial high sen trop minimally elevated and has remained flat -Patient is without chest pain/pressure -No acute ST segment or T-wave changes on ECG -Monitor on tele (5) Ischemic cardiomyopathy: Plan: -S/P pacemaker placement -Continue diuresis. Converted to p.o. -Continue Imdur - restarted metoprolol twice daily which is her home dose and monitor for adverse reactions Recent echo showed apical thrombus. Per cardiology, no need for DELORES. Already on Eliquis. Cardiology started Jardiance (6) Gouty arthropathy, unspecified: Plan: -Continue allopurinol (7) CAD (coronary artery disease): Plan: -Stable -No recent anginal symptoms -Supposed to restart aspirin on 04/10; resumed. -Continue metoprolol restarted on admission (8) Paroxysmal atrial fibrillation: Plan: -Stable -Continue Eliquis continue metoprolol (9) Hypertension: Plan: -Stable -Monitor for hypotension with IV diuresis and restarting metoprolol Blood pressure currently stable now (10) Hyperlipidemia: Plan: -Continue statin Plan likely discharge tomorrow Admission and Anticipated Discharge Date Admission Date: April 07, 2023 Subjective patient feels well. Continues to keep leg swelling down Review of Systems Review of Systems: All systems reviewed & are unremarkable except as noted in Subjective Physical Exam Physical Exam: General: Awake, conversant Heart: S1, S2/regular rate and rhythm, no murmur rubs or gallops Lungs: Clear to auscultation bilaterally. Normal effort Abdomen: Soft/nontender/nondistended. No hepatosplenomegaly Extremities: No clubbing/cyanosis. 1+ pitting bilateral edema. Wrinkles visible due to improving leg swelling Behavior: Appropriate, cooperative Results & Data Results & Data Vital Signs (Past 12 Hours) Vital Signs Temp Pulse Pulse Resp BP Pulse Ox O2 Del Method 04/10/23 12:06 36.6 C 64 18 100/59 L 96 Room Air 04/10/23 07:35 36.5 C 63 18 98/63 L 93 Room Air 04/10/23 07:31 74 PG Care Time/CCT Total # of Minutes Spent Total Time Spent with Patient: Total time spent is greater than 50% in coordination of care (as documented) at patient's floor/unit and/or counseling patient: Coding Level of Care Code 05400 SUB INP/OBS CARE 2/35MIN Diagnoses Acute exacerbation of CHF (congestive heart failure) I50.9 Bilateral edema of lower extremity R60.0 Postoperative ileus K91.89; K56.7 Elevated troponin R77.8 Ischemic cardiomyopathy I25.5 Gouty arthropathy, unspecified M10.9 CAD (coronary artery disease) I25.10 Paroxysmal atrial fibrillation I48.0 Hypertension I10 Hyperlipidemia E78.5
[2023-04-10] MEDS: ASPIRIN 81 MG ECTAB PO SCH (17:46)
[2023-04-11] MEDS: APIXABAN 5 MG TABLET PO SCH (08:42)
[2023-04-11] MEDS: ASPIRIN 81 MG ECTAB PO SCH (08:42)
[2023-04-11] MEDS: DOCUSATE SODIUM/SENNA 50/8.6MG TAB PO SCH (08:42)
[2023-04-11] MEDS: allopurinoL 300 MG TAB PO SCH (08:42)
[2023-04-11] MEDS: EMPAGLIFLOZIN 10 MG TAB PO SCH (08:42)
[2023-04-11] MEDS: ISOSORBIDE MONO EXTENDED REL 30 MG TABCR PO SCH (08:43)
[2023-04-11] MEDS: METOPROLOL SUCC 50MG EXT REL TAB PO SCH (08:43)
[2023-04-11] MEDS: FUROSEMIDE 40 MG TAB PO SCH (08:43)
--- NOTE | 2023-04-11 09:38 | Discharge Summary ---
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 In the ED the patient was initially tachypneic at 33 but otherwise stable. Labs were significant for a d-dimer of 4070, bicarb of 36 with chloride of 95, initial high sen trop of 18, BNP of 282. Chest xray was read as "1. Pneumoperitoneum with subcutaneous emphysema of the lateral chest and abdominal wall. Correlate with surgical history. If the patient has no history of recent surgery, correlation with CT abdomen and pelvis recommended. 2. Cardiomegaly without pulmonary edema.". CTA of the chest was read as "1. COPD, consisting of increased AP diameter of the chest and flattening of the diaphragms. Emphysema.No focal infiltrate or pneumothorax. 2. No acute pulmonary embolism. 3. Atherosclerotic changes of the aorta, with coronary involvement.". And CT of the abd/pelvis w/IV con was read as "1. Recent abdominal surgery with partial colonic resection. Anastomotic sutures are present in the region of the sigmoid colon. Mild postoperative free air in the abdomen. 2. Fluid-filled dilated small bowel measures up to 1.9 cm, concerning for postoperative ileus. 3. Infrarenal abdominal aortic aneurysm, measures 2.7 cm anteroposterior. 4. Mild postoperative fluid in the pelvis, without well- formed collection or abscess.". Prior to admission the patient was ordered 40 mg IV lasix. At the time of the exam the patient was sitting in bed in no acute distress with her son sitting bedisde. She states that she was admitted to [facility] from 03/29-04/03 for partial colon resection due to recently diagnosed sigmoid colon mass. She explains that they had to convert the laparoscopic procedure to an open procedure due to the size of the mass. She and her son explain that at points in the admission her blood pressure was "very low". They deny her needing to go to the ICU or needing vasopressors, but they state that she was given a large amount of IV fluids. She also explains that her metoprolol was stopped on discharge, but they did not tell her why. Since discharge home she has been doing well with her surgical site. She has been ambulating well and her abdominal pain has been well controlled. Since discharge she has been significantly more SOB with exertion than prior to her surgery. She is still able to walk up her flight up steps at home, but was more winded than normal. Her BL LE's have been much more swollen since discharge than her baseline. She had been taking 20 mg PO lasix daily over the past 2 days without significant improvement in her symptoms. She denies recent fever, chills, chest pain, cough, dysuria, hematuria, melena, diarrhea, and recent trauma. We discussed code status, the patient wishes to be a conditional code. She would NOT want CPR/defibrillation in the event of cardiac arrest. She would want a trial of intubation in the event of respiratory failure. Her youngest Son, Gonzalez, is her POA. Please refer to Dr. Virk's attestation for any changes to the treatment plan Admission Exam Per Admitting Provider Physical Exam: General:In no acute distress, stated age, well-nourished, good hygiene, non- toxic appearing HEENT:Normocephalic, atraumatic, no scleral icterus, pupils around round, symmetrical, and reactive to light, dry mucus membranes, mild JVD, trachea midline, no thyromegaly Chest/Pulm:No respiratory distress, symmetrical chest expansion, crackles noted in the BL lower lung gross, otherwise CTA Cardiac:irregular rate and rhythm, no murmurs noted Abdomen:Surgical site scars appear intact and healing well, no signs of infection or dehiscence, normoactive bowel sounds, soft, mildly tender to palpation over the lower abdomen Musculoskeletal:Symmetrical and without signs of acute trauma, upper and lower extremities with full ROM, no atrophy, spasticity, or flaccidity Extremities:Radial, dorsalis pedis, and posterior tibial pulses are intact and symmetrical, 2+ pitting edema noted in the BL LE's Skin:Warm, dry, no rashes , lesions, or scars noted Neuro:Alert and oriented to person, place, month, year, and president, no focal defects, no tremors noted Psych:No acute distress, calm and cooperative during the exam Principal Diagnosis acute on chronic systolic congestive heart failure Postop ileus/fecal impaction Demand ischemia secondary to CHF exacerbation Discharge Exam General: Awake, conversant Heart: S1, S2/regular rate and rhythm, no murmur rubs or gallops Lungs: Clear to auscultation bilaterally. Normal effort Abdomen: Soft/nontender/nondistended. No hepatosplenomegaly Extremities: No clubbing/cyanosis. 1+ pitting bilateral edema. Wrinkles visible due to improving leg swelling Behavior: Appropriate, cooperative Discharge Data Allergies Allergy/AdvReac Type Severity Reaction Status Date / Time heparin Allergy Severe Thrombocytopenia; Verified 03/25/23 09:04 NEUTROPENIA Penicillins Allergy Intermediate Hives; Verified 03/25/23 09:04 SYNCOPE Consultations 04/07/23 20:25 ED Decision to Admit Stat 04/09/23 11:18 Consult Cardiology Routine 04/10/23 15:18 [facility] [place] Routine Ordered Studies 04/07/23 16:18 US venous doppler LE BI Stat 04/07/23 18:19 CT Abd and Pelvis [CT abd pelvis IV con only] Stat 04/07/23 18:47 CT for pulmonary embolism PE [CT angio chest PE protocol] Stat Hospital Course (1) Acute exacerbation of CHF (congestive heart failure): Acute on chronic systolic congestive heart failure improving with Lasix Patient was started on p.o. Lasix 40 mg 04/10. Monitor ins and outs, daily weights Monitor serial BMP Echocardiogram shows depressed EF of 40%. It also shows a possible apical thrombus. Already on Eliquis 5 mg p.o. twice daily. cardiology did not recommend DELORES. discharged on metoprolol succinate On Imdur Will need outpatient CHF clinic follow-up (2) Bilateral edema of lower extremity: -Likely due to acute CHF exacerbation and recent deconditioning from hospitalization -Continue diuresis po (3) Postoperative ileus: -Noted on CT of the abd/pelvis today, negative for obstruction - patient continues to have good bowel movement Encourage ambulation Added Senokot (4) Elevated troponin: - demand ischemia due to CHF exacerbation Initial high sen trop minimally elevated and has remained flat -Patient is without chest pain/pressure -No acute ST segment or T-wave changes on ECG -Monitor on tele (5) Ischemic cardiomyopathy: -S/P pacemaker placement -Continue diuresis. Converted to p.o. -Continue Imdur - switch metoprolol to tartrate to metoprolol succinate Recent echo showed ? apical thrombus. Per cardiology, no need for DELORES. Already on Eliquis. Cardiology started Jardiance (6) Gouty arthropathy, unspecified: -Continue allopurinol (7) CAD (coronary artery disease): -Stable -No recent anginal symptoms -Supposed to restart aspirin on 04/10; resumed. - Resumed metoprolol (8) Paroxysmal atrial fibrillation: -Stable -Continue Eliquis continue metoprolol but switch from tartrate to succinate (9) Hypertension: -Stable Blood pressure currently stable now (10) Hyperlipidemia: -Continue statin Plan discharge today Total Time Total Time Spent Total Time Spent (In Minutes): 35 Discharge Plan Discharge Items Patient Disposition: Home - Self-Care Reason For Visit: DORAN, CHF EXACERBATION, ELEVATED TROP Discharge Diagnosis: acute on chronic systolic congestive heart failure Activity: Resume your previous activity Non-emergency contact: Primary Care Provider Call non-emergency contact if: you have any medication questions and your symptoms worsen Follow-up/Referrals: Fco Vazquez MD [Primary Care Provider] - 04/12/23 11:05 am (THIS APPOINTMENT WILL BE WITH T[facility]. IF YOU CANNOT KEEP THIS APPOINTMENT, PLEASE CALL THE OFFICE TO RESCHEDULE) Diet: Heart Healthy and Low Sodium (2gm) Addtl Attending Provider Instructions: advised to follow-up with PCP in 1 week Advised to follow-up with CHF clinic in 1 week Pending Studies at Discharge: No Stand-Alone Forms: My [facility] Medications and DC Order Prescriptions: New furosemide 40 mg Tablet 40 mg PO QAM 30 Days Qty: 30 0RF metoprolol succinate 50 mg Tablet Extended Release 24 Hr 50 mg PO QAM 30 Days Qty: 30 0RF Jardiance 10 mg Tablet 10 mg PO DAILY 30 Days Qty: 30 0RF Continued ezetimibe-simvastatin [Vytorin 10-40] 10-40 mg Tablet 1 tab PO PM Qty: 0 nitroglycerin [Nitrostat] 0.4 mg Tablet, Sublingual 0.4 mg sublingual UD PRN (Reason: Chest Pain) Qty: 0 Rx Instructions: q5 min prn x3 allopurinol 300 mg Tablet 300 mg PO QAM Qty: 90 apixaban 5 mg tablet 5 mg PO BID Qty: 180 3RF calcium carbonate-vitamin D3 [Calcium 500 + D] 500 mg-10 mcg (400 unit) tablet 1 tab PO BID alendronate [Fosamax] 70 mg tablet 70 mg PO WK Rx Instructions: TAKE THIS MED EVERY TUESDAY aspirin 81 mg tablet,chewable 81 mg PO QAM isosorbide mononitrate 30 mg tablet extended release 24 hr 30 mg PO QAM acetaminophen [Tylenol Extra Strength] 500 mg Tablet 500 mg PO QID PRN (Reason: Pain) Discontinued metoprolol tartrate 25 mg Tablet 25 mg PO BID furosemide 20 mg tablet 20 mg PO DAILY Rx Instructions: 04/07/23 : PREVIOUSLY THIS MED WAS ORDERED NEEDED.PS ORLY RECENTLY INSTRUCTED PT TO TAKE IT DAILY. Discharge Orders: Discharge Order- CHF (Routine); Ordered 04/11/23 Ordered By: Ambika Rahman Admission Data Admit Date/Time: 04/07/23 21:16 Attending Provider: Ambika Rahman Admit Provider: Mirna Virk Primary Care Provider: Fco Vazquez Other Providers: Mirna Virk ; Gonzalez Felipe ; Steff Walsh Other Interventions: Discharge Summary Assessment (RN) Last Done: 04/11/23 11:02 Coding Level of Care Code 22597 INP/OBS DISCH >30 MIN Diagnoses Acute exacerbation of CHF (congestive heart failure) I50.9 Bilateral edema of lower extremity R60.0 Postoperative ileus K91.89; K56.7 Elevated troponin R77.8 Ischemic cardiomyopathy I25.5 Gouty arthropathy, unspecified M10.9 CAD (coronary artery disease) I25.10 Paroxysmal atrial fibrillation I48.0 Hypertension I10 Hyperlipidemia E78.5
== END 2023-04-11 11:49 | disposition home or self-care (01) | DRG 291 ==
LOC: ED 15:47 → SUATTDRO 21:16 → 2N 21:16
DX: Z79.899 Other long term (current) drug therapy; I25.10 Atherosclerotic heart disease of native coronary artery without angina pectoris; Z79.01 Long term (current) use of anticoagulants; K91.89 Other postprocedural complications and disorders of digestive system; I25.2 Old myocardial infarction; I11.0 Hypertensive heart disease with heart failure; Z95.0 Presence of cardiac pacemaker; Y83.6 Removal of other organ (partial) (total) as the cause of abnormal reaction of the patient, or of later complication, without mention of misadventure at the time of the procedure; Z88.8 Allergy status to other drugs, medicaments and biological substances; Z95.5 Presence of coronary angioplasty implant and graft; K56.7 Ileus, unspecified; K56.41 Fecal impaction; I48.0 Paroxysmal atrial fibrillation; I24.8 Other forms of acute ischemic heart disease; Z87.891 Personal history of nicotine dependence; M10.9 Gout, unspecified; I50.23 Acute on chronic systolic (congestive) heart failure; Z79.82 Long term (current) use of aspirin; E78.5 Hyperlipidemia, unspecified; I34.0 Nonrheumatic mitral (valve) insufficiency; Z88.0 Allergy status to penicillin

== ENCOUNTER 2023-07-14 13:26 | Inpatient (IN) ==
--- NOTE | 2023-07-14 13:48 | ED Triage Note ---
Date of Service July 14, 2023 History of Present Illness This patient was briefly evaluated while in triage. An abbreviated physical exam was performed. This patient is a 87-year-old Female history of CHF who presents to the ED for evaluation of 2 episodes of syncope/falls over the past few weeks, ligh theadedness, and lower extremity edema. Edema has been worse over the past few weeks. No chest pain. Feels short of breath during dizzy spells. Breathing is OK otherwise. Does take diuretics. No headache or neck pain currently. Does have a pacemaker. Physical Exam CONSTITUTIONAL: in no acute pain or distress, resting comfortably SKIN: pink, warm, dry CARDIAC: regular rate and rhythm RESPIRATORY: in no respiratory distress, lungs clear to auscultation MSK: 3+ pitting edema b/l lower extremities Initial orders for labs and / or imaging were placed and patient was placed in the waiting area until a bed is available. Please see further documentation for the full ED course.
--- NOTE | 2023-07-14 14:45 | XRay Report ---
XR chest 1V not portable CLINICAL HISTORY: LE edema, syncope TECHNIQUE: Single frontal radiograph of the chest was obtained. Comparison: Comparison is made to chest radiograph 04/07/2023 FINDINGS: An implanted pacemaker is seen. Cardiomegaly is noted. The aortic arch is calcified. The lungs are cl ear. No evidence of pleural effusion or pneumothorax. IMPRESSION: No acute chest disease. Cardiomegaly is noted. ACT 112: Negative or not required by law. Electronically signed by: Gee Zavala M.D. 07/14/2023 2:44 PM
[2023-07-14 15:49] LABS: Basophils # (auto) 0.03 K/uL (0.00-0.20); Basophils % (auto) 0.4 %; Eosinophils # (auto) 0.03 K/uL (0.00-0.50); Eosinophils % (auto) 0.4 %; Hematocrit (blood only) 32.8 % (37.0-47.0); Hemoglobin 10.7 g/dl (12.0-16.0); Immature Granulocytes # (auto) 0.02 K/uL (0.01-0.20); Immature Granulocytes % (auto) 0.3 %; Lymphocytes # (auto) 0.97 K/uL (1.20-3.40); Lymphocytes % (auto) 13.4 %; Mean Corpuscular Hemoglobin 28.7 pg (25.0-34.0); Mean Corpuscular Hgb Conc 32.6 g/dL (32.0-36.0); Mean Corpuscular Volume 87.9 fL (80.0-100.0); Mean Platelet Volume 10.5 fL (9.4-12.4); Neutrophils # (auto) 5.39 K/uL (1.40-6.50); Neutrophils % (auto) 74.5 %; Platelet Count 164 K/uL (130-400); RDW Coefficient of Variation 14.6 % (11.5-14.5); RDW Standard Deviation 45.9 fL (36.4-46.3); Red Blood Count 3.73 M/uL (4.20-5.40); White Blood Count 7.24 K/ul (4.8-10.8)
--- NOTE | 2023-07-14 16:03 | Emergency Department Note ---
Impression & Plan Syncope and collapse, Swelling of both lower extremities ED Provider Note NAME: ALEXIS MANLEY AGE: 87 SEX: F : 1935 ARRIVES VIA: Walk-In INFORMANT: Patient, ED PROVIDER(S): Riccardo Foss MD CHIEF COMPLAINT: Syncope, lower extremity swelling HPI: This is a 89-[id number]-year-old female with history of HFmEF, CHF presenting for syncope plus bilateral lower extremity swelling. Patient notes that last week she had a syncopal episode when she got off the toilet. She stood up and then fell striking her right neck against the sink. She then notes she syncopized 2 days ago as well after program sitting to standing. She notes she has a pacemaker and is scheduled for a follow-up tomorrow. She notes she is on a blood thinner. Otherwise she notes her legs have been swelling for the past 3+ days. She notes that it is actually weeping at this time. She notes no shortness of breath with exertion, no chest pain, no pleurisy. No fevers or chills. She takes a diuretic every other day. ROS: See above HPI for pertinent positives & negatives. A total of 10 systems reviewed and were otherwise negative. PAST MEDICAL HISTORY: See Below PAST SURGICAL HISTORY: See Below FAMILY HISTORY: See Below SOCIAL HISTORY: See Below HOME MEDICATIONS: See Below ALLERGIES: See Below VITALS: See Below PHYSICAL EXAMINATION: General: resting comfortably in no acute distress Head: Normocephalic and atraumatic Eyes: Normal inspection, extraocular muscles intact Ear, nose, throat: Ecchymosis to left neck, no bruit Neck: Normal range of motion Respiratory: lungs clear to auscultation bilaterally Cardiovascular: Regular rate/rhythm, no murmur GI: soft, nontender, no guarding or rebound Extremities: nontender, moves all extremities, 3+ pitting edema with active weeping Neuro: The patient awake and alert, appropriately conversive, no focal deficits, symmetric faces Skin: Warm, dry, and intact MEDICAL DECISION MAKING: This is a an 87-year-old female with history as above presenting for syncope and lower extremity swelling. Patient is obvious fluid overloaded in her lower extremities with weeping 3+ pitting edema. Otherwise she has had syncopal episodes. She does have a pacemaker at this time. Will interrogate pacemaker, [employer]. Otherwise patient's legs are significantly weeping at this point. This will require admission for IV Lasix. Lab work reviewed showing no leukocytosis, no significant anemia. INR 1.2. Slightly low sodium, chloride and elevated CO2. No anion gap. BNP is elevated 96, troponin elevated slightly at 25 Will admit for further syncope workup, possible pacemaker related versus fluid Chest Xray independently interpreted by me showing no pneumothorax, focal opacity, or pleural effusions, cardiomegaly noted. CT head and C-spine are negative for traumatic injury Triage Nursing notes reviewed. Prior medical records reviewed Vital Signs: reviewed and remarkable for no significant abnormalities Differential diagnosis: ACS, cardiogenic syncope, fluid overload, CHF ER treatment provided: See below Diagnostics interpreted by me: ECG: ECG independently interpreted by me with atrial fibrillation with RVR, rate of 120, left axis, left bundle branch block, normal QTc, no ST segment elevations consistent with STEMI criteria Cardiac Monitoring: An order was placed for continuous cardiac monitoring. The monitor shows a rate of 97 and atrial rhythm. As stated above and show below. Imaging studies: See below. Radiographic imaging was reviewed by myself Consultation(s): None Past Med/Surg History Medical History CAD (coronary artery disease) Chronic kidney disease, stage 3 Gout Hearing deficit History of pelvic mass Hx of pancreatitis Hypercholesterolemia Hyperlipidemia Hypertension Loose stools Malignant melanoma of skin Old myocardial infarct Osteopenia Pacemaker Paroxysmal atrial fibrillation Peripheral vascular disease Surgical History History of cataract surgery History of cholecystectomy History of cochlear implant History of heart artery stent History of herniorrhaphy Hx laparoscopic cholecystectomy (11/18/22) S/P cardiac pacemaker procedure S/P left inguinal hernia repair (11/18/22) S/P ORIF (open reduction internal fixation) fracture S/P trigger finger release Family History Family/Other Hearing loss Father Heart disease Mother Cancer Other No family history of adverse response to anesthesia No family history of bleeding disorder Denies family history of Ovarian cancer Chronic kidney disease Breast cancer Colorectal cancer Social History Smoking Status: Never smoker Age Started Using Tobacco: 43; Age Quit Using Tobacco: 63; packs per day: 0.5; Cigarettes Per Day: quit 1998; Second Hand Exposure: Yes (hx); Do You Dip or Chew Tobacco: No; Hx Alcohol Use: Yes Alcohol type: wine Alcohol Intake Frequency: Monthly or Less Hx Substance Use: No Preferred Language: Malawian Communication Ability: Effective Visual Impairment: No Limitations Stump Shooter Required: No Beliefs That Will Affect Care: Anabaptism marital status: / Current Living Situation: Family Current Living Situation Comment: sons How many Children do You have: 5 Feels Safe at Home: Yes Diet: regular during the past year weight has: decreased > 10 lbs Assistive Devices: Glasses and Walker Allergies Allergies Allergy/AdvReac Type Severity Reaction Status Date / Time heparin Allergy Severe Thrombocytopenia; Verified 07/14/23 17:20 NEUTROPENIA Penicillins Allergy Intermediate Hives; Verified 07/14/23 17:20 SYNCOPE Home Meds Home Medications Medication Instructions Recorded Confirmed ezetimibe 10 mg-simvastatin 40 mg 1 tab PO PM ##0 09/19/06 07/14/23 tablet (Vytorin) nitroglycerin 0.4 mg sublingual 0.4 mg sublingual UD PRN Chest 04/05/13 07/14/23 tablet (Nitrostat) Pain #0 BTLS allopurinol 300 mg tablet 300 mg PO QAM ##90 02/13/17 07/14/23 aspirin 81 mg chewable tablet 81 mg PO QAM 04/22/21 07/14/23 isosorbide mononitrate 30 mg 30 mg PO QAM 05/19/21 07/14/23 tablet,extended release 24 hr calcium carbonate 500 mg-vitamin 1 tab PO BID 09/11/21 07/14/23 D3 10 mcg (400 unit) tablet (Calcium 500 + D) alendronate 70 mg tablet (Fosamax) 70 mg PO WK 05/03/22 07/14/23 acetaminophen 500 mg tablet 500 mg PO QID PRN Pain 11/10/22 07/14/23 (Tylenol Extra Strength) furosemide 20 mg tablet 20 mg PO QAM PRN SWELLING 07/14/23 07/14/23 Previous Rx's Medication Instructions Recorded apixaban 5 mg tablet 5 mg PO BID #180 tabs 10/06/22 empagliflozin 10 mg tablet 10 mg PO DAILY #90 tabs 05/13/23 (Jardiance) metoprolol succinate 50 mg 50 mg PO QAM #30 tabs 05/13/23 tablet,extended release 24 hr Results & Data (ED) Vital Signs Vital Signs - 24 hr 07/14/23 13:43 07/14/23 15:27 07/14/23 15:27 Temperature 37 C Temperature Source Temporal Artery Scan Pulse Rate 76 92 H Pulse Rate [Right Finger] 92 H Respiratory Rate 20 16 Respiratory Effort / Characteristics Non-Labored Spontaneous Non-Labored Spontaneous Respiratory Depth Normal Normal Respiratory Pattern Regular Blood Pressure 114/62 Blood Pressure [Left Arm] 118/91 Blood Pressure Mean 79 Blood Pressure Mean [Left Arm] 100 Pulse Oximetry 98 97 Oxygen Delivery Method Room Air Room Air Sepsis Recent Fever Within 48 Hours No Sepsis New/Unexplained Change in Mental Status No Sepsis Action Taken by Nursing No Action Required 07/14/23 16:50 Temperature Temperature Source Pulse Rate Pulse Rate [Right Finger] 73 Respiratory Rate 16 Respiratory Effort / Characteristics Non-Labored Spontaneous Respiratory Depth Normal Respiratory Pattern Blood Pressure Blood Pressure [Left Arm] 123/71 Blood Pressure Mean Blood Pressure Mean [Left Arm] 88 Pulse Oximetry 96 Oxygen Delivery Method Room Air Sepsis Recent Fever Within 48 Hours Sepsis New/Unexplained Change in Mental Status Sepsis Action Taken by Nursing Laboratory Data 07/14/23 15:17 07/14/23 15:17 Lab Results 07/14/23 Range/Units 15:17 WBC 7.24 (4.8-10.8) K/ul RBC 3.73 L (4.20-5.40) M/uL Hgb 10.7 L (12.0-16.0) g/dl Hct 32.8 L (37.0-47.0) % MCV 87.9 (80.0-100.0) fL MCH 28.7 (25.0-34.0) pg MCHC 32.6 (32.0-36.0) g/dL RDW Std Deviation 45.9 (36.4-46.3) fL RDW Coeff of Debby 14.6 H (11.5-14.5) % Plt Count 164 (130-400) K/uL MPV 10.5 (9.4-12.4) fL Immature Gran % (Auto) 0.3 % Neut % (Auto) 74.5 % Lymph % (Auto) 13.4 % [place] % (Auto) 11.0 % Eos % (Auto) 0.4 % Baso % (Auto) 0.4 % Neut # (Auto) 5.39 (1.40-6.50) K/uL Lymph # (Auto) 0.97 L (1.20-3.40) K/uL [place] # (Auto) 0.80 H (0.11-0.59) K/uL Eos # (Auto) 0.03 (0.00-0.50) K/uL Baso # (Auto) 0.03 (0.00-0.20) K/uL Immature Gran # (Auto) 0.02 (0.01-0.20) K/uL PT 12.8 H (9.0-12.0) Seconds INR 1.2 H (0.9-1.1) APTT 31.9 H (21.0-31.0) Seconds PTT Ratio 1.1 Sodium 134 L (136-145) mmol/L Potassium 3.7 (3.5-5.1) mmol/L Chloride 97 L (98-107) mmol/L Carbon Dioxide 33 H (21-32) mmol/L Anion Gap 4 (3-11) BUN 20 (6-23) mg/dl Creatinine 1.01 (0.6-1.2) mg/dl Est Cr Clr Drug Dosing 31.6 ml/min Est GFR ( Amer) 58.4 ml/min Est GFR (Non-Af Amer) 50.4 ml/min BUN/Creatinine Ratio 19.8 (10-20) Glucose 93 (70-99(Fasting)) mg/dl Calcium 9.3 (8.6-10.3) mg/dl Magnesium 1.3 L (1.7-2.4) mg/dl Total Bilirubin 0.6 (0.2-1.0) mg/dl AST 25 (13-39) U/L ALT 17 (7-52) U/L Alkaline Phosphatase 75 (34-104) U/L Troponin I High Sens 25.0 H (0-14) pg/ml B-Natriuretic Peptide 926 H (0-100) pg/ml Total Protein 6.1 (6.0-8.3) gm/dl Albumin 2.9 L (3.4-5.0) gm/dl Globulin 3.2 (2.5-4.0) gm/dl Albumin/Globulin Ratio 0.9 (0.9-2) TSH 1.916 (0.300-4.500) uIu/ml Administered Medications Apixaban (Apixaban 5 Mg Tablet) 5 mg PO BID EDVIN Stop: 08/13/23 21:08 Last Admin: 07/14/23 21:45 Dose: 5 mg Documented By: CANDE Calcium/Vitamin D (Calcium 600mg + Vit D 400 Iu Tab) 1 tab PO BID EDVIN Stop: 08/13/23 21:19 Last Admin: 07/14/23 21:45 Dose: 1 tab Documented By: CANDE Ezetimibe (Ezetimibe 10 Mg Tab) 10 mg PO HS EDVIN Stop: 08/13/23 21:29 Last Admin: 07/14/23 21:42 Dose: 10 mg Documented By: CANDE Magnesium Sulfate/Dextrose (Magnesium Sulfate / D5w) 1 gm in 100 mls @ 50 mls/hr IV ONE ONE Stop: 07/14/23 23:44 Last Admin: 07/14/23 21:52 Dose: 50 mls/hr Documented By: CANDE Simvastatin (Simvastatin 40 Mg Tab) 40 mg PO HS EDVIN; Protocol Stop: 08/13/23 21:29 Last Admin: 07/14/23 21:44 Dose: 40 mg Documented By: CANDE Discontinued Medications Furosemide (Furosemide 40 Mg/4 Ml Vial) 40 mg IV ONE ONE Stop: 07/14/23 18:44 Last Admin: 07/14/23 19:05 Dose: 40 mg Documented By: MANI Magnesium Sulfate/Dextrose (Magnesium Sulfate / D5w) 1 gm in 100 mls @ 100 mls/hr IV NOW STA Stop: 07/14/23 19:43 Last Admin: 07/14/23 19:09 Dose: 100 mls/hr Documented By: MANI Imaging Data Radiologist's Impression: Chest X-Ray 07/14/23 13:49 XR chest 1V not portable CLINICAL HISTORY: LE edema, syncope TECHNIQUE: Single frontal radiograph of the chest was obtained. Comparison: Comparison is made to chest radiograph 04/07/2023 FINDINGS: An implanted pacemaker is seen. Cardiomegaly is noted. The aortic arch is calcified. The lungs are clear. No evidence of pleural effusion or pneumothorax. IMPRESSION: No acute chest disease. Cardiomegaly is noted. ACT 112: Negative or not required by law. Electronically signed by: Gee Zavala M.D. 07/14/2023 2:[address] 07/14/23 15:51 CT cervical spine wo con CLINICAL HISTORY: Trauma, fall TECHNIQUE: Multidetector row helical CT of the cervical spine was performed without administration of intravenous contrast. Coronal and sagittal reformations were obtained. Automated dose lowering techniques and/or adjustment according to patient size were utilized for this exam. Comparison: Comparison is made to cervical spine 05/19/2021 FINDINGS: No acute fractures or subluxations are identified. Degenerative changes are seen in the visualized spine. The alignment is normal. Biapical scarring is seen in the lungs. IMPRESSION: Degenerative changes without evidence of acute bony injury. ACT 112: Negative or not required by law. Electronically signed by: Gee Zavala M.D. 07/14/2023 4:[address] 07/14/23 15:51 CT head/brain wo con CLINICAL HISTORY: Trauma. blood thinner Technique: Contiguous axial CT images of the head were acquired from the base of the skull to the vertex without intravenous contrast administration. Images were viewed in brain, subdural and bone windows. Automated dose lowering techniques and/or adjustment according to patient size were utilized for this exam. Comparison: Comparison is made to CT head 05/19/2021 Findings: Areas of decreased attenuation are present in the periventricular and subcortical white matter bilaterally consistent with small vessel ischemic disease. Generalized cerebral atrophy with commensurate enlargement of the ventricles, sulci, and cisterns is also present. There is no acute intracranial hemorrhage or evidence of acute territorial infarction. No shift of the midline structures, mass effect, or extra-axial abnormalities are shown. Atherosclerotic calcifications are present in the intracranial segments of the internal carotid arteries. Imaged portions of the paranasal sinuses and mastoid air cells are clear. The orbits appear normal. There are no acute fractures of the calvaria or scalp swelling. Impression: No acute intracranial hemorrhage, no evidence of acute territorial infarction or other acute intracranial disease process. ACT 112: Negative or not required by law. Electronically signed by: Gee Zavala M.D. 07/14/2023 4:24 PM Discharge Plan Visit Data Chief Complaint: Edema To Extremity Stated Complaint: SWELLING IN LEGS ED Provider: Riccardo Foss Discharge Problem: Syncope and collapse, Swelling of both lower extremities Patient Disposition: Admitted As Inpatient Discharge Instructions Interventions: ED Discharge Assessment Last Done: 07/14/23 19:44
[2023-07-14 16:05] LABS: Albumin Globulin Ratio 0.9 (0.9-2); Albumin Level 2.9 gm/dl (3.4-5.0); BUN Creatinine Ratio 19.8 (10-20); Bilirubin,Total 0.6 mg/dl (0.2-1.0); Calcium 9.3 mg/dl (8.6-10.3); Creatinine Clr Calc Pharmacy 31.6 ml/min; Est GFR (African American) 58.4 ml/min; Est GFR (Non-African American) 50.4 ml/min; Globulin 3.2 gm/dl (2.5-4.0); Magnesium 1.3 mg/dl (1.7-2.4); Potassium 3.7 mmol/L (3.5-5.1); Total Protein 6.1 gm/dl (6.0-8.3)
[2023-07-14 16:15] LABS: INR 1.2 (0.9-1.1); Partial Thromboplastin Ratio 1.1; Partial Thromboplastin Time 31.9 Seconds (21.0-31.0); Prothrombin Time 12.8 Seconds (9.0-12.0)
[2023-07-14 16:20] LABS: Thyroid Stimulating Hormone 1.916 uIu/ml (0.300-4.500)
--- NOTE | 2023-07-14 16:25 | CT Scan Report ---
CT head/brain wo con CLINICAL HISTORY: Trauma. blood thinner Technique: Contiguous axial CT images of the head were acquired from the base of the skull to the tray chloé without intravenous contrast administration. Images were viewed in brain, subdural and [facility]. Automated dose lowering techniques and/or adjustment according to patient size were utilized for this exam. Comparison: Comparison is made to CT head 05/19/2021 Findings: Areas of decreased attenuation are present in the periventricular and subcortical white matter bilate rally consistent with small vessel ischemic disease. Generalized cerebral atrophy with commensurate e nlargement of the ventricles, sulci, and cisterns is also present. There is no acute intracranial hem orrhage or evidence of acute territorial infarction. No shift of the midline structures, mass effect, or extra-axial abnormalities are shown. Atherosclerotic calcifications are present in the intracran ial segments of the internal carotid arteries. Imaged portions of the paranasal sinuses and mastoid air cells are clear. The orbits appear normal. There are no acute fractures of the calvaria or scalp swelling. Impression: No acute intracranial hemorrhage, no evidence of acute territorial infarction or other acute intracra nial disease process. ACT 112: Negative or not required by law. Electronically signed by: Gee Zavala M.D. 07/14/2023 4:24 PM
--- NOTE | 2023-07-14 16:39 | CT Scan Report ---
CT cervical spine wo con CLINICAL HISTORY: Trauma, fall TECHNIQUE: Multidetector row helical CT of the cervical spine was performed without administration of intravenous contrast. Coronal and sagittal reformations were obtained. Automated dose lowering techn iques and/or adjustment according to patient size were utilized for this exam. Comparison: Comparison is made to cervical spine 05/19/2021 FINDINGS: No acute fractures or subluxations are identified. Degenerative changes are seen in the visualized sp ine. The alignment is normal. Biapical scarring is seen in the lungs. IMPRESSION: Degenerative changes without evidence of acute bony injury. ACT 112: Negative or not required by law. Electronically signed by: Gee Zavala M.D. 07/14/2023 4:36 PM
[2023-07-14] MEDS ORDERED: FUROSEMIDE 40 MG/4 ML VIAL IV ONE (18:43)
[2023-07-14] MEDS ORDERED: MAGNESIUM SULFATE / D5W 1 GM/100 ML BAG IV STA (18:44)
--- NOTE | 2023-07-14 18:49 | History & Physical Report ---
Date of Service July 14, 2023 Assessment & Plan (1) Acute exacerbation of CHF (congestive heart failure): Plan: -Admit to PCU/ Telemetry -Acute on chronic -Significant Bilateral pitting edema +3 with extravasation, BNP 926, JVD -CXR: No acute chest disease, no pleural effusion - Stable, no respiratory distress -ECHO (04/08/23: EF slightly worse (EF of 40%)Mitral regurgitation, Tricuspid regurgitation, apical thrombus, wall abnormalities are more pronounced. -Monitor intake/ output -Daily weights -HH, low salt diet. Fluid restriction -Magnesium replaced now -Echo ordered - IV lasix 40 mg given now, continue daily am -Continue Jardiance, metoprolol, Vytorin -AM CBC, CMP, Mag, PT/PTT (2) Syncope and collapse: Plan: - 2 events of Syncope with LOC without prodrome symptoms -Unknown etiology by hx seem cardiac etiology -Orthostatic V/S -Echo ordered -Cardiology consulted -CMP, mag CBC am (3) Bilateral edema of lower extremity: Plan: -Due to CHF exacerbation -Continue IV lasix Hold isosorbide mononitrate for now See above (4) Paroxysmal atrial fibrillation: Plan: -Continue metoprolol and Eliquis 5 mg BID -Continue monitoring (5) CAD (coronary artery disease): Plan: -stable -Denied any chest pain Continue aspirin Hold isosorbide mononitrate for now (6) Mobitz type II block: Plan: - Sinus Bradycardia/Mobitz Type 2 Second-Degree AV Block s/p Dual Chamber Pacemaker -Continue monitor (7) Elevated troponin: Plan: -Mild elevation -No acute changes on ECG - Likely due to demand of CHF exacerbation -Will trend (8) Hypomagnesemia: Plan: Acute Mag 1.3 Mag replaced 1 gram now Follow AM Mag (9) Ischemic cardiomyopathy: Plan: Suspected ischemic Continue metoprolol and Jardiance Plan Code Status: DNR/DNI DVT prophylaxes: Eliquis 5 mg BID Diet: HH/ low salt/ fluid restriction Disposition: PCU/ Telemetry History of Present Illness Primary Care Provider: Fco Vazquez MD 87 y/o female with PMH significant for recent colorectal surgery CAD s/p NC s/p Intracoronary Stent 1998, Paroxysmal Atrial Fibrillation (on Eliquis), Resolved Ischemic Cardiomyopathy, Sinus Bradycardia/Mobitz Type 2 Second-Degree AV Block s/p Dual Chamber Pacemaker, CHF, Hypertension, Hyperlipidemia, Gout and, resection of colon mass (03/29) who presented to the hospital after 2 episodes of syncope and bilateral leg edema. She refers she had 2 episode of LOC with no prodrome symptoms, the first one a week ago and last one 2 days ago. On the last episode she hit her neck against the sink. She report not having any symptoms prior, denied any light headedness, or dizziness. She does report some dizziness, flush and light headedness for weeks now that had never ended with syncope or presyncope. In terms of her legs, she report swelling since 2 weeks and weeping from the legs since 3 days ago. She report that she take her Lasix daily 20mg but sometimes she skip it and had also stopped her daily weights. By chart reviewed, pt was admitted on March due to CHF exacerbation and post operative ileus. ECHO (04/08/23: EF slightly worse (EF: 40%)Mitral regurgitation, Tricuspid regurgitation, apical thrombus, wall abnormalities are more pronounced. Cardiology did not recommended DELORES at that point and continue anticoagulation. She was discharge on Metoprolol, Imdur and Eliquis 5 mg BID. As per Heart failure clinic patient was euvolemic on 06/03 and Lasix was decreased 20 mg PRN. At evaluation she was found in no acute distress. Denied any shortness of breath, chest pain, palpitations, headache, dizziness, nausea, vomiting, abdominal pain, diarrhea or any other symptoms. Chest Xray showed no cute chest disease, no pleural effusion, cardiomegaly noted. Cervical CT: No acute bony injury. Head CT: no acute hemorrhages, no evidence of infarction. Chemistry noted to have hyponatremia, hypomagnesium and a BNP of 926 and troponin of 25. Magnesium was replaced with 1 gram now. IV Lasix 40 mg ordered for now Allergies Allergy/AdvReac Type Severity Reaction Status Date / Time heparin Allergy Severe Thrombocytopenia; Verified 07/14/23 17:20 NEUTROPENIA Penicillins Allergy Intermediate Hives; Verified 07/14/23 17:20 SYNCOPE Home Medications Medication Instructions Recorded Confirmed Type ezetimibe 10 mg-simvastatin 40 mg 1 tab PO PM ##0 09/19/06 07/14/23 History tablet (Vytorin) nitroglycerin 0.4 mg sublingual 0.4 mg sublingual UD PRN Chest 04/05/13 07/14/23 History tablet (Nitrostat) Pain #0 BTLS allopurinol 300 mg tablet 300 mg PO QAM ##90 02/13/17 07/14/23 History aspirin 81 mg chewable tablet 81 mg PO QAM 04/22/21 07/14/23 History isosorbide mononitrate 30 mg 30 mg PO QAM 05/19/21 07/14/23 History tablet,extended release 24 hr calcium carbonate 500 mg-vitamin 1 tab PO BID 09/11/21 07/14/23 History D3 10 mcg (400 unit) tablet (Calcium 500 + D) alendronate 70 mg tablet (Fosamax) 70 mg PO WK 05/03/22 07/14/23 History apixaban 5 mg tablet 5 mg PO BID #180 tabs 10/06/22 07/14/23 Rx acetaminophen 500 mg tablet 500 mg PO QID PRN Pain 11/10/22 07/14/23 History (Tylenol Extra Strength) empagliflozin 10 mg tablet 10 mg PO DAILY #90 tabs 05/13/23 07/14/23 Rx (Jardiance) metoprolol succinate 50 mg 50 mg PO QAM #30 tabs 05/13/23 07/14/23 Rx tablet,extended release 24 hr furosemide 20 mg tablet 20 mg PO QAM PRN SWELLING 07/14/23 07/14/23 History Past Med/Surg History Medical History CAD (coronary artery disease) Chronic kidney disease, stage 3 Gout Hearing deficit History of pelvic mass Hx of pancreatitis Hypercholesterolemia Hyperlipidemia Hypertension Loose stools Malignant melanoma of skin Old myocardial infarct Osteopenia Pacemaker Paroxysmal atrial fibrillation Peripheral vascular disease Surgical History History of cataract surgery History of cholecystectomy History of cochlear implant History of heart artery stent History of herniorrhaphy Hx laparoscopic cholecystectomy (11/18/22) S/P cardiac pacemaker procedure S/P left inguinal hernia repair (11/18/22) S/P ORIF (open reduction internal fixation) fracture S/P trigger finger release Family History Family/Other Hearing loss Father Heart disease Mother Cancer Other No family history of adverse response to anesthesia No family history of bleeding disorder Denies family history of Ovarian cancer Chronic kidney disease Breast cancer Colorectal cancer Social History Smoking Status: Never smoker Age Started Using Tobacco: 43; Age Quit Using Tobacco: 63; packs per day: 0.5; Cigarettes Per Day: quit 1998; Second Hand Exposure: Yes (hx); Do You Dip or Chew Tobacco: No; Hx Alcohol Use: Yes Alcohol type: wine Alcohol Intake Frequency: Monthly or Less Hx Substance Use: No Preferred Language: Persian Communication Ability: Effective Visual Impairment: No Limitations Deputy Building Guard Required: No Beliefs That Will Affect Care: Quaker Quaker Beliefs: Religious marital status: / Current Living Situation: Family Current Living Situation Comment: sons How many Children do You have: 5 Other Information That Helps Us Care for You: No Feels Safe at Home: Yes Safety Concerns: Feels Safe At This Time Diet: regular during the past year weight has: decreased > 10 lbs Assistive Devices: Cane, Glasses, Hearing Aid - Bilateral and Walker Review of Systems Review of Systems: as per HPI Physical Exam Constitutional: WD/WN, vitals as above Eyes: PERRL, conjunctivae normal, anicteric sclerae Neck: trachea midline, no thyromegaly JVD Respiratory: normal respiratory effort, lungs clear to auscultation Cardiovascular: Rate/Rhythm: regular rate and regular rhythm Heart Sounds: normal S1 and normal S2; no murmur Extremities: + edema (+3, weeping ) Gastrointestinal (Abdomen): normal bowel sounds, soft, nontender, no hepatosplenomegaly Skin: no rashes, warm and dry Neurologic: PERRL, EOMI, accommodation nl, no face palsy, no dysarthria Results & Data Results & Data Vital Signs (Past 12 Hours) Vital Signs Temp Pulse Pulse Resp BP BP Pulse Ox 07/14/23 16:50 73 16 123/71 96 07/14/23 15:27 92 H 07/14/23 15:27 92 H 16 118/91 97 07/14/23 13:43 37 C 76 20 114/62 98 O2 Del Method 07/14/23 16:50 Room Air 07/14/23 15:27 07/14/23 15:27 Room Air 07/14/23 13:43 Room Air Code Status & VTE Plan VTE Prophylaxis Plan VTE Prophylaxis will be ordered: Yes Supervising Physician Co-Signing Physician Notes I personally saw and examined the patient. I independently reviewed the labs, EKG, imaging, problem list, medication list, past medical history and family history. I verified all clark points and agree with resident physician Dr Tiffanie Tobin, with the following exceptions and/or additions: 87 year old female presents to the ER with bilateral leg swelling and multiple syncopal events without preceding events. Leg swelling worse since Lasix was decreased from 40 -> 20 mg daily as outpatient per patient. O/E A&Ox3, HS RRR, no murmurs, 3+ pitting edema b/l equal, Chest bibasal fine crackles, no wheezing or decreased breath sounds, Abdo SNT A/P Syncope - pacemaker interrogation pending, cardiology consulted given concern for lack of prodromal symptoms suggestive or cardiac arrhythmia. Alternatively may be orthostatic and may need to come off ISMN longer term. Orthostatic BP ordered. Acute on chronic CHF with borderline ejection fraction - hold ISMN to allow uptitration of diuretics. Agree with Lasix 40mg IV daily initially and will monitor I&Os/Cr to help manage ongoing dosing. Agree with repeat echocardiogram given possibility of thrombus on echo in March (doubtful acute per cardiology consultation at that time) and some wall motion abnormalities Resident Activity Tracking Resident Involvement: Resident Care Provided Care Provided: Adult Hospital Medicine
[2023-07-14] MEDS ORDERED: ACETAMINOPHEN 500 MG TAB PO PRN (21:09)
[2023-07-14] MEDS ORDERED: ONDANSETRON INJ 2 MG/ML 2 ML VIAL IV PRN (21:09)
[2023-07-14] MEDS ORDERED: POLYETHYLENE (MIRALAX) 17 GM PACK PO PRN (21:09)
[2023-07-14] MEDS ORDERED: EZETIMIBE/SIMVASTATIN 10/40MG TAB PO SCH (21:09)
[2023-07-14] MEDS ORDERED: NITROGLYCERIN SL 0.4 MG/TAB TAB SL PRN (21:09)
[2023-07-14] MEDS: EZETIMIBE 10 MG TAB PO SCH (21:42)
[2023-07-14] MEDS: SIMVASTATIN 40 MG TAB PO SCH (21:44)
[2023-07-14] MEDS ORDERED: MAGNESIUM SULFATE / D5W 1 GM/100 ML BAG IV ONE (21:45)
[2023-07-14] MEDS: APIXABAN 5 MG TABLET PO SCH (21:45)
[2023-07-14] MEDS: CALCIUM 600MG + VIT D 400 IU TAB PO SCH (21:45)
--- OUTSIDE RECORDS SUMMARY | 2023-07-14 22:54 | External Medical Summary | Continuity of Care Document ---
Author Name Unknown Organization [address] Address [address] [place], [place] [id number] Care Team Providers Care Associate Software Application Engineer Name Role Phone Fco Vazquez Primary Care Physician [phone] [facility] [id number] Date(s): 04/12/23 - 04/12/23 [place] [address] [place] [facility] [place] [address] [phone] Encounter Diagnosis AF (atrial fibrillation)(Discharge Diagnosis) - 04/12/23 HFimpEF, currently with mildly reduced EF(Discharge Diagnosis) - 04/12/23 Anemia(Discharge Diagnosis) - 04/12/23 Status post colon resection(Discharge Diagnosis) - 04/12/23 Discharge Disposition: Home or Self Care Attending Physician: HAROON Iqbal Tara Allergies, Adverse Reactions, Alerts Substance Reaction Severity Status heparin thrombocytopenia Active Augmentin Papular rash Active Bactrim 1 Papular rash Active PCN (penicillin) hives, passing out Activ e 1Patient was taking both Augmentin and Bactrim - one of these caused a diffuse papular rash Assessment and Plan Extracted from: Title:TCM Author:HAROON Iqbal Tara Date: 1.AF (atrial fibrillation) Acute/Chronic: chronic Goal:Resolution/ control Status:stable/controlled Data: records/pt report Plan:Patiently is presently back on her Eliquis. She is also on her other cardiac meds. Continue on present regimen. 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 She does have sometrace to +1 pedal edema. Her lungs are clearand she denies any shortness of breath. Her Lasix was increased to 40 mgdue to her recent admission for congestive heart failure. Monitor weight and watch salt intake. We will get her into see her academic affairs vice president Dr. Springer or his PA Huber Ramos follow-up. 3.Anemia Acute/Chronic: chronic Goal:Resolution/ control Status:stable/controlled Data: records/pt report Plan:She did have mildpostoperative anemiawith a hemoglobin of 10.1 postoperatively. During her admissionfor congestive heart failure herhemoglobin was 10.2. We will repeat a CBC in approximately a month. 4.Status post colon resection Acute/Chronic: chronic Goal:Resolution/ control Status:stable/controlled Data: records/pt report Plan:Patient underwentcolon resection for a partially obstructing colon lesion seen on endoscopy. Her pathology showed diverticulitis with abscess formation suggestion ofperforation. 1 hyperplastic polyp. 6 lymph nodes with reactive changes. Colon descending diverticulosis and a tubular adenoma. Omentum partial omentectomy with vasocongestion. Colon anastomotic rings excision of erosions. Review pathology with the patient. Will ask them to make a follow-up postoperative appointment for the patient with Dr. Acosta. Transitional Care Visit Plan: Initial transitional care contact documentation reviewed and was made on _ (if documented patient contact not made within 2 business days of discharge, TCM does not apply) Medical Decision Making: Moderately or Highly Complex (seen within 14 days of discharge) (07786) xHighly Complex (seen within 7 days of discharge) (97482) Medication Reconciliation: X_Medication list reconciled _Medication list given to patient/family/caregiver at discharge Referrals: _None _Care manager environmental _Referred to:[id number] surgery and cardiology _Referred to: _ _Referred to: _ Community Resources identified for patient/family: _xNone needed, _Home health agency for: _ _Office of aging _Assisted living _Hospice _Support group for: _ _Physical therapy for: _ _Occupational therapy for: _ _Education program for: _ _Other: hospice care transitions coordinator Durable medical equipment: X_None _DME ordered: Type: _ Duration: _ Additional communication delivered or planned to: XFamily/caregiver:son _Home health agency: _ _Specialists: _ _Other: _ Patient Education: _Topics discussed: _ _Handouts given: _ per Connected patient education. _ Other: _ Follow-up visit: _ days _ weeks months Other plans:follow up with Dr. Vazquez in Aug 2023 as previously scheduled . Immunizations Given and Recorded Vaccine Date Status Refusal Reason influenza virus vaccine, inactivated 06/02/20 Give n influenza virus vaccine, inactivated 05/24/19 Give n influenza virus vaccine, inactivated 06/01/18 Give n influenza virus vaccine, inactivated 05/05/17 Give n influenza virus vaccine, inactivated 05/11/16 Give n influenza virus vaccine, inactivated 04/30/15 Give n influenza virus vaccine, inactivated 06/26/14 Give n influenza virus vaccine, inactivated 05/18/13 Give n influenza virus vaccine, inactivated 07/14/12 Give n zoster vaccine, inactivated 01/13/19 Recorded zoster vaccine, inactivated 09/15/18 Recorded pneumococcal 13-valent vaccine 06/26/14 Given tetanus/diphtheria/pertuss, acel (Tdap) 06/22/13 G iven zoster vaccine live 06/01/12 Recorded pneumococcal 23-valent vaccine 01/14/04 Recorded tetanus toxoids-diphtheria, Td (Adult) 08/15/01 Re corded Medications allopurinol 300 mg oral tablet Start: 02/23/23 19:18:00 EDT, 1 tab, PO, Daily, Disp# 90 tab, Refills: 3, Pharmacy: [facility] Start Date: 02/23/23 Status: Ordered aspirin 81 mg oral delayed release tablet Start: 02/23/23 19:18:00 EDT, 1 tab, PO, Daily, Disp# 90 tab, Refills: 3, Pharmacy: [facility] Start Date: 02/23/23 Status: Ordered calcium (as carbonate)-vitamin D 500 mg-400 intl units oral tablet, chewable Start: 12/07/10 14:29:00, 1 tab, PO, Daily, tab, No Dosage Noted Start Date: 12/07/10 Status: Ordered Eliquis 5 mg oral tablet Start: 11/27/20 10:27:00 EDT, 1 tab, PO, bid Start Date: 11/27/20 Status: Ordered Fosamax 70 mg oral tablet Start: 02/23/23 19:18:00 EDT, 1 tab, PO, q7days, Disp# 15 tab, Refills: 3, with 6-8 oz plain water,at least 30 minutes before first food, beverage, or medication of the day, Pharmacy: [facility] Start Date: 02/23/23 Status: Ordered isosorbide mononitrate 30 mg oral tablet, extended release Start: 02/23/23 19:18:00 EDT, See Instructions, Disp# 90 tab, Refills: 3, TAKE ONE TABLET BY MOUTH EVERY MORNING, Pharmacy: [facility] Start Date: 02/23/23 Status: Ordered Jardiance 10 mg oral tablet Start: 04/11/23 16:03:00 EDT, 1 tab, PO, Daily, Disp# 30 tab Start Date: 04/11/23 Status: Ordered Lasix 40 mg oral tablet Start: 04/12/23 11:18:00 EDT, 1 tab, PO, Daily Start Date: 04/12/23 Status: Ordered metoprolol succinate 50 mg oral tablet, extended release Start: 04/11/23 16:02:00 EDT, 1 tab, PO, Daily Start Date: 04/11/23 Status: Ordered nitroglycerin 0.4 mg sublingual tablet Start: 02/23/23 19:18:00 EDT, See Instructions, Disp# 25 tab, Refills: 3, Place 1 tab under the tongue every 5 minutes for 3 doses if needed for chest pain. Call 911 if no relief!, Pharmacy: [facility] Start Date: 02/23/23 Status: Ordered oxyCODONE 5 mg oral tablet Start: 04/03/23 10:17:00 EDT, 1 tab, PO, q4h, Disp# 8 tab, Refills: 0, PRN: as needed for pain, Pharmacy: [facility] [place] Start Date: 04/03/23 Status: Ordered Vytorin 10 mg-40 mg oral tablet Start: 02/23/23 19:18:00 EDT, 1 tab, PO, Daily, Disp# 90 tab, Refills: 3, Pharmacy: [facility] Start Date: 02/23/23 Status: Ordered Mental Status 04/12/23 Barriers to Learning one year None evide nt Mandatory Health Literacy Documentation Yes Health Literacy Communication Barriers N ever Primary Language Belgian Problem List Condition Confirmation Course Effective Dates Status H ealth Status Informant Angioplasty Confirmed Active Anterior dislocation of shoulder Confirmed Active Atherosclerosis of aortic arch 1 Confirmed Active AF (atrial fibrillation) Confirmed Active CAD 2, 3 Confirmed 11/09/10 Active Cardiac catheterization Confirmed Active Changing skin lesion Confirmed Active Chronic kidney disease, stage 3a 4 Confirmed Active Atherosclerotic heart disease of [place] coronary artery with unspecified angina pectoris Confirmed Active DiverticulOSIS 5 Confirmed 11/09/10 Active GOUT Confirmed 11/09/10 Active 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 History of melanoma Confirmed Active S/P right hip fracture Confirmed Active Personal history of melanoma in-situ Confirmed Active HYPERTENSION Confirmed 11/09/10 Active Balance problem Confirmed Active Inflamed seborrheic keratosis Confirmed Active Left inguinal hernia Confirmed Active Increased MCV Confirmed Active Mass of colon Confirmed Active Melanoma 6 Confirmed Active IN (myocardial infarction) Confirmed Active Mitral regurgitation Confirmed Active MIXED HYPERLIPIDEMIA Confirmed 11/09/10 Active MOBITZ TYPE II AV BLOCK 7 Confirmed 11/09/10 Active Otosclerosis Confirmed Active Pacemaker Confirmed Active PERSONAL HISTORY OF OTHER MALIGNANT NEOPLASM OF SKIN 8 Confirmed Active Pre-diabetes Confirmed Active Renal insufficiency 9 Confirmed Active Rosacea Confirmed Active Seborrheic keratoses Confirmed Active Senile hyperkeratosis Confirmed Active Stent, device Confirmed Active Vitamin D deficiency Confirmed Active 1See outside rad/study 11/10/17 10/15/2017- CXR: Atherosclerosis of aortic arch 2s/p stent 3s/p IN and pacer. sees Dr. Springer 4See outside note 03/25/22 03/12/22 [facility] [place]- [place]phrology, [place] [id number] Mason 7s/p pacer 8face [facility] 9resolved. sees [address]. Rodrigez Diagnosis Diagnosis Type Effective Dates Health Status Cl inical Service Informant Status post colon resection Discharge Diagnosis 04/12/23 Anemia Discharge Diagnosis 04/12/23 Non-Specified AF (atrial fibrillation) Discharge Diagnosis 04/12/23 HFimpEF, currently with mildly reduced EF Discharge Diagnosis 04/12/23 Procedures Procedure Date Related Diagnosis Body Site Status Chest X-ray 1 04/07/[address] angiography of chest with contrast 2 04/07/[address] of abdomen and pelvis wit h intravenous contrast 3 04/07/23 Completed Colonoscopy 4, 5 03/16/[address] of abdomen and pelvis 6 03/16/[address] of chest 7 03/16/23 Completed Mammogram 8 01/17/23 Completed History of hernia repair 11/2022 Completed Shave biopsy 09/02/22 Completed Ultrasound abdomen ltd hernia 9 08/30/22 Completed MOHS 1 STAGE T/A/L 03/04/22 Comple gordon Shave biopsy 10 02/04/22 Completed Mammogram - screening 11 01/14/22 Completed Bone density scan 12 10/22/21 Comp leted Echocardiogram 05/20/[address] of cervical spine 13 05/19/[address] of head 14 05/19/21 Completed Hip fracture 15 05/19/21 Completed Hip X-ray 16 05/19/21 Completed A scan ultrasound right uppe r extremity 17 02/15/20 Completed Plain X-ray of right forearm 18 02/15/20 Completed X-ray of wrist right 19 02/15/20 C ompleted Mammogram - screening 20 01/10/20 Completed DEXA - dual energy X-ray absorptiometry 21 07/20/19 Completed Left Subclavian Venography w ith Pacer with Atrial lead 01/02/19 Completed Pacemaker care 22 11/02/18 Complet ed Mammogram - screening 23 10/18/18 Completed Mammogram 24 10/17/17 Completed CXR - Chest X-ray 25 10/15/17 Comp leted DEXA - Dual energy X-ray cece ton absorptiometry 26 06/16/[address] of brain 27 06/09/17 Completed Cholangiogram 28 02/17/17 Complete d Cholecystectomy 29, 30 02/17/17 Co mpleted Abdomen and pelvis 31 02/14/17 Com pleted CXR - Chest X-ray 32 02/13/17 Comp leted KUB X-ray 33 02/13/17 Completed Ultrasound RUQ abdomen 34 02/13/17 Completed Cervical cytology brush 35 02/02/17 Completed Mammogram 36 10/13/16 Completed Open right inguinal hernia with mesh 08/26/16 Completed Procedure 37 08/2016 Completed Cataract surgery L. eye 08/11/16 C ompleted Cataract surgery 38 07/21/16 Compl eted US - Ultrasound right groin nonvascular 39 06/23/16 Completed Pap smear for cervical cance r screening 40 02/02/16 Completed Doppler venous 41 01/06/16 Complet ed Chest x-ray 42 12/16/15 Completed X-ray right ribs 43 12/16/15 Compl eted Surgery 44 11/2015 Completed Removal of osseointefrated implant 45 11/06/15 Completed X-ray 46 09/01/15 Completed X-ray right shoulder 47 09/01/15 C ompleted Procedure 48 08/22/15 Completed Right Shoulder XRAY 49 08/22/15 Co mpleted Bone density scan 10/17/14 Complet ed Mammogram 50 10/11/14 Completed Procedure 51 10/11/14 Completed Colonoscopy 52, 53 02/13/14 Comple gordon Procedure- left ear cochlear 54 12/12/13 Completed Mammogram - screening 55 10/10/13 Completed Pacemaker 04/05/13 Completed Colonoscopy 2007 Completed Angioplasty Completed melenoma--left face Compl eted 11. Pneumoperitoneum with subcutaneous emphysema of the lateral chest and abdominal wall. Correlate with surgical history. If the patient has no history of recent surgery, correlation with CT abdomen and pelvis recommended. 2. Cardiomegaly without pulmonary edema. 21. COPD, consisting of increased AP diameter of the chest and flattening of the diaphragms, Emphysema. No focal infiltrate or pneumothorax. 2. No acute pulmonary embolism. 3. Atheroslerotic changes of the aorta, with coronary involvement. 31. Recent abdominal surgery with partial colonic resection. Anastomotic sutures are present in the region of the sigmoid colon. Mild postoperative free air in the abdomen. 2. Fluid filled dilated small bowel measures up to 1.9 cm, concerning for postoperative ileus. 3. Infrareal abdominal aortic aneurysm, measures 2.7 cm anteroposterior. 4. Mild postoperative fluid in the pelvis, without well formed collection or abscess. 4Pathology results: Colon, sigmoid, biopsy: Chronic focally active colitis with architectural distortion. Negative for malignancy. 5Likely malignant completely obstructin tumor in the sigmoid colon, biopsied, The rectum is normal 61) Extensive colonic idverticulosis. Circumferential wall thickening of the proximal to mid sigmoidcolon with moderate associated inflammation. The findings could reflect acute sigmoid diverticulitis or a nonspecific colitis. Mild assoicated mesenteric lymphadenopathy. Although ths may be reacitve, an underlying colonic malignancy cannot be excluded. Small 2.2 x 1.3 cm pericolinic fluid collection. This could reflect a tiny diverticular abscess or inflamed diverticulum. No drainable fluid collection. Fluid-filled colon which indicate diarrheal state. A low-grade partial colonic obstruction related to the sigmoid colon process cannot be excluded. Findings will be called/faxed to the ordering provider at time of dictation. 2) 3 cm infrarenal abdominal aortic aneurysm. 3) Mild biliary ductal dilatation likely related to cholecystectomy. No suspicous hepatic lesions. 71) N0 definite acute process within the chest. 2) Minimal ground glass opactities with mosaic attenuation within th elungs. The findings likely reflect atelectasis although air trapping could appear similar. No consilidation to suggest pneumonia.Scattered tiny pulmonary nodules which are lkely benign. 3) Moderate cardiomegaly 8There is no mammographic evidence of malignancy. A 1 year screening mammogram is recommended. 9Small fat filled left inguinal hernia 10left lateral brow 11There is no mammographic evidence of malignancy. A 1 year screening mammogram is recommended 01-15-2023 The pt will recieve written notification of results. 12left femur osteopenia -1.8 left forearm osteopenia -2.1 z-score 0.5 13Impression: Severe degenerative changes with airspace disease and neural foraminal stenosis at multiple levels. No evidence of acute fracture. 14Impression: No acute intracranial hemorrhage, skull fractures, or scalp swelling. 15repair 16Impression: Acute comminuted, angulted, impacted and displaced intertrochanteric fracture of the right femur. 171. There is no sonographic evidence of DVT identified in the RUE. 2. SQ soft tissue edema with fluid and phlegmonous change is seen in the right wrist at the site ofinterest. No organized/drainable fluid collection is seen at this time. 18Soft tissue swelling with no acute bony abnormality identified. 19Soft tissue swelling with no acute osseous abnormality identified. 20There is no mammographic evidence of malignancy. A 1 year screening mammogram is recommended. 21AP spine L1-L3 T-score: 0.7 Femur Neck Left T-score: -1.1 Femur Neck Right T-score: -1.0 Femur Total Mean T-score: -1.1 22new pacemaker implanted 23There is no mammographic evidence of malingnancy. A 1 year screening mammogram is recommended. Tthepatient will receive written notification of the results. 24There is no mammographic evidence of malignancy. 25Impression: 1. No acute cardiopulmonary disease. 2. Right rib fractures, which may be new since the prior exam. 26-1.1 Recommend f/u in June 2019 27Impression: Senescent changes as above with no hemorrhage, enhancing mass, or evidence of acute territorial ischemia by Ct criteria. 28intraoperative cholangiogram: fluoroscopy provided for an intraoperative cholangiogram status post cholecystectomy. probable air bubbles seen. mild biliary ductal prominence presumably on a post operative basis. 29lap cholecystectomy with cholangiogram 30final diagnosis: Gallbladder, laparoscopic cholecystectomy: acute and chronic cholecystitis. No calculi identified. 31Study limited d/t lack of IV and oral contrast Severe pandiverticulosis No renal, ureteral or bladder diverticula No evidence of bowel obstruction. No evidence of free air Stable sigmoid wall thickening No evidence of acute appendicitis Partial ankylosis of the right SI joint Equivocal mild diffuse pancreatic edame. 321. Cardiomegaly and cardiac pacemaker. there is mild pulmonary vascular congestion. 2. No airspace consolidation is seen typical for pneumonia and no large pleural effusion is identified. 33Nonobstructed abdominal bowel yenny pattern noting moderate constipation 34The gallbladder is distended with associated gallbladder wall thickening and edema. Pericholecysticfluid is noted. No shadowing gallstones are identified and a sonographic [place]chaca's sign is equivical. Findings are concerning for acute cholecystitis. Surgical consult is advised. Consider a nuclear hepatobiliary scan for further assessment if cholecystitis does not fit the clinical presentation. 35Negative for intraepithelial lesion or malignancy. 36Normal ] 37Trigger finger surgery. 38Right cataract surgery. 39Impression: Small and reducible fat-containing right inguinal hernia. there is questionable bowel within the hernia. 40diagnosis: negative for intraepithelial lesion or malignancy. 411. Normal study. No evidence of deep or superificial vein thrombosis in the left leg. 2. No abnormality found in the contralaeral common femoral vein. 42Impression: Cardiomegaly. Multiple right rib deformities. Thin linear lucency at the lateral right base likely oscar silhouetted by discoid atelectasis. Tiny basilar pneumothorax felt less likely. 43Impression: Study a bit technically suboptimal. However there are fractures seen involving the right sixth, seventh and eighth ribs. 44removed cochlear implant 45Removal of osseointegrated implant 46Anatomic alignment of the glenohumeral joint s/p reduction. No fx identified. 47Right anterior shoulder dislocation. No fractures. 48Anatomic alignment status post closed reduction 49Anterior dislocation right shoulder 50benign 51Urine cytology: Benign squamous and urothelial cells No malignant cells seen 52diverticulosis in the entire colon 53Polapsed mucosa-not significant 54implant in left ear. 55normal 56Diverticulosis Vital Signs Most recent to oldest [Reference Range]: 1 Height 155 cm (04/12/23 11:19 AM) Patient Weight 53.5 kg (04/12/23 11:19 AM) Body Mass Index 22.27 kg/m2 (04/12/23 11:19 AM) Heart Rate 69 bpm (04/12/23 11:19 AM) Respiratory Rate 16 br/min (04/12/23 11:19 AM) Blood Pressure 130/64mmHg (04/12/23 11:19 AM) Cuff Pulse Pressure 66 mmHg (04/12/23 11:19 AM) Social History Social History Type Response Tobacco 1 Smoking Status Former Smoker, quit > 1 yr Sex Female 1<1PPD smoked for 25 year, quited 1998 Transitional Care Note * HAROON Iqbal Tara: PERFORM Event Display: Transitional Care Note Authored Date: [id number] Chief Complaint TCM for PE. Had some medication changes and they have been updated. Feeling better. Hospital mentioned a stool softner but didn't order. Still waiting for biopsy reports from [place]. History of Present Illness Patient was seen at [facility] emergency room on 04/07/2023 due tolower extremity edema. Of note the patient [facility]. She is on Eliquis for history of A-fib. She was admitted to the hospitaland underwentchest x-ray which showed cardiomegaly without pulmonary edema. Ipneumoperitoneum with subcutaneous emphysema lateral chest and abdominal wall. Abdominal CTshowed recent abdominal surgery with partial colonic resection. Anastomotic sutures were present in the region of the sigmoid colon. Mild postoperative free air in the abdomen. Fluid-filled dilated small bowel measuring up to 1.9 cm. Alcohol Extavia. Colitisinfrarenal abdominal aorta aneurysm measuring 2.7. Posteriormild postoperative fluid in the pelvis without well-defined collection or abscess. CTAshowed COPD of increased diameter of the chest and flattening of the diaphragm. Emphysema. No focal infiltrate or pneumothorax. No acute pulmonary emboli. Atherosclerotic changes of the aorta. Patient's laboratory studies showed a white count of 20.02, hemoglobin 10.2, [id number]. Her D-dimer was 4070. Potassium was 4, creatinine was 0.9, liver functions were normal. She was found to be in acute exacerbation of congestive heart failure. Acute on chronic systolic congestive heartfailure. She was given Lasix and this did improve. Prior to discharge she was startedon p.o. Lasix 40 mg. Echocardiogram showed a decreased EF of 40%. There was also a possible apical thrombus. She was already on Eliquis 5 mg p.o. twice daily. Cardiology did not recommend a DELORES. She was on metoprolol 25 mg twice daily and Imdur. Recommended follow-up forF as an outpatient. Bilateral lower extremity edema due to acute CHF exacerbation and deconditioning. She was placed on diuresis. And also PT consult. Postoperative ileus was noted on CT scanshe was having bowel movements duringadmission. She was encouraged to ambulate and was also given Senokot. Troponin was elevated which was most likely due to demand ischemia due to CHF exacerbation. She was not having any chest pain or pressure. No acute ST segment or T wave changes on EKG. Cardiology also started her on Jardiancefor cardioprotectivepurposes. Patient was discharged on 04/11/2023. She is feeling well. She states that this lower extremity swelling has gone down. She does havesomepedal edemathat worsens over the day but if she puts her legs up andovernight it goes back down. She denies any chest pain or shortness of breath. She is moving her bowels. She is eating and drinking without difficulty. She states that she has not heard anything about her pathology from her surgery. Review of Systems Constitutional: No fever, chills, sweats EENT:No vision change, eye pain, rhinorrhea, sinus pain, epistaxis, dysphagia, change in hearing,tinnitus, vertigo, oral ulcers or lesions. Pulmonary: No shortness of breath, dyspnea with exertion, cough, hemoptysis, wheezing, chest pain. Cardiovascular: No chest pain, palpitations, syncope, edema, cyanosis, claudication, orthopnea. GI: No nausea, vomiting, diarrhea, melena, hematochezia, change in appetite, abdominal pain, changein bowel habits or stools : No dysuria, frequency, urgency, urinary incontinence, hematuria, nocturia. Neurologic: No headache, lightheadedness,. Psychiatric: No depression, anxiety Endocrine: No weight change, heat or cold intolerance, tremor, insomnia, polyuria, polydipsia, polyphagia, abnormal hair growth, change in nails Physical Exam Vitals & Measurements HR:69(Monitored) RR:16 BP:130/64 SpO2:95% HT:155cm WT:53.500kg(Dosing) WT:53.5kg BMI:22.27 PHQ2 Data(Data Documented on:04/12/2023 11:19) Emotional health assessment NEGATIVE head- normocephalic Pulmonary- chest expansion symmetric, CTA (clear to auscultation), eupnea, no adventitious sounds (rales, crackles, wheezes) CV (cardiovascular)- RRR no m/r/g (systolic ejection murmur, rubs, gallops), good peripheral perfusion abdomen- soft non-tender w/o masses, BS present, no hepatosplenomegaly, no bruits extremitiesNo erythema. +1pedal edema. skin-good turgor w/o lesions, redness, cyanosis, edema nails- no clubbing or deformities w good cap refill Neuro:Alert, Oriented, Psy:no homicidal or suicidal ideations. Assessment/Plan 1.AF (atrial fibrillation) Acute/Chronic: chronic Goal:Resolution/ control Status:stable/controlled Data: records/pt report Plan:Patiently is presently back on her Eliquis. She is also on her other cardiac meds. Continue on present regimen. 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 She does have sometrace to +1 pedal edema. Her lungs are clearand she denies any shortness of breath. Her Lasix was increased to40 mgdue to her recent admission for congestive heart failure. Monitor weight and watch salt intake. We will get her into see her academic affairs vice president Dr. Springer or his PA Huber Mcgregoror follow-up. 3.Anemia Acute/Chronic: chronic Goal:Resolution/ control Status:stable/controlled Data: records/pt report Plan:She did have mildpostoperative anemiawith a hemoglobin of 10.1 postoperatively. Duringher admissionfor congestive heart failure herhemoglobin was 10.2. We will repeat a CBC in approximately a month. 4.Status post colon resection Acute/Chronic: chronic Goal:Resolution/ control Status:stable/controlled Data: records/pt report Plan:Patient underwentcolon resection for a partially obstructing colon lesion seen on endoscopy. Her pathology showed diverticulitis with abscess formation suggestion ofperforation. 1 hyperplastic polyp. 6 lymph nodes with reactive changes. Colon descending diverticulosis and a tubular adenoma. Omentum partial omentectomy with vasocongestion. Colon anastomotic rings excision of erosions. Review pathology with the patient. Will ask them to make a follow- up postoperative appointment for the patient with Dr. Acosta. Transitional Care Visit Plan: Initial transitional care contact documentation reviewed and was made on _ (if documented patient contact not made within 2 business days of discharge, TCM does not apply) Medical Decision Making: Moderately or Highly Complex (seen within 14 days of discharge) (92845) xHighly Complex (seen within 7 days of discharge) (99991) Medication Reconciliation: X_Medication list reconciled _Medication list given to patient/family/caregiver at discharge Referrals: _None _Care manager environmental _Referred to:[id number] _Referred to: _ _Referred to: _ Community Resources identified for patient/family: _xNone needed, _Home health agency for: _ _Office of aging _Assisted living _Hospice _Support group for: _ _Physical therapy for: _ _Occupational therapy for: _ _Education program for: _ _Other: hospice care transitions coordinator Durable medical equipment: X_None _DME ordered: Type: _ Duration: _ Additional communication delivered or planned to: XFamily/caregiver:son _Home health agency: _ _Specialists: _ _Other: _ Patient Education: _Topics discussed: _ _Handouts given: _ per [facility] patient education. _ Other: _ Follow-up visit: _ days _ weeks months Other plans:follow up with Dr. Vazquez in Aug 2023 as previously scheduled . 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 Balance problem CAD Cardiac catheterization Changing skin lesion Chronic kidney disease, stage 3a DiverticulOSIS GOUT History of melanoma HYPERTENSION Increased MCV Inflamed seborrheic keratosis Left inguinal hernia Mass of colon Melanoma IN (myocardial infarction) Mitral regurgitation MIXED HYPERLIPIDEMIA MOBITZ TYPE II AV BLOCK Otosclerosis Pacemaker Personal history of melanoma in-situ PERSONAL HISTORY OF OTHER MALIGNANT NEOPLASM OF SKIN Pre-diabetes Renal insufficiency Rosacea S/P right hip fracture Seborrheic keratoses Senile hyperkeratosis Stent, device 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] Vitamin D deficiency Historical Biceps tendonitis on right Edema Hip fracture, right Inguinal hernia Instability of right shoulder joint OSTEOPOROSIS Right rotator cuff tear Shoulder pain Tear of right glenoid labrum Thrombocytopenia Torn rotator cuff UNSPECIFIED DISEASES OF BLOOD AND BLOOD-FORMING ORGANS Procedure/Surgical History CT angiography of chest with contrast (04/07/2023)CT of abdomen and pelvis with intravenous contrast (04/07/2023)Chest X-ray (04/07/2023)Colonoscopy (03/16/2023)CT of chest (03/16/2023)CT of abdomen and pelvis (03/16/2023)Mammogram (01/17/2023)History of hernia repair ()Shave biopsy (09/02/2022)Ultrasound abdomen ltd hernia (08/30/2022)MOHS 1 STAGE T/A/L (03/04/2022)Shave biopsy (02/04/2022)Mammogram - screening (01/14/2022)Bone density scan (10/13)Echocardiogram (05/20/2021)Hip fracture (05/19/2021)Hip X-ray (05/19/2021)CT of head (05/19/2021)CT of cervical spine (05/19/2021)A scan ultrasound right upper extremity (02/15/2020)X-ray of wrist right (02/15/2020)Plain X-ray of right forearm (02/15/2020)Mammogram- screening (01/10/2020)DEXA - dual energy X-ray absorptiometry (07/20/2019)Left Subclavian Venography with Pacer with Atrial lead (01/02/2019)Pacemaker care (11/02/2018)Mammogram - screening (10/18/2018)Mammogram (10/17/2017)CXR - Chest X-ray (10/15/2017)DEXA - Dual energy X-ray photon absorptiometry (06/16/2017)CT of brain (06/09/2017)Cholangiogram (02/17/2017)Vale cystectomy (02/17/2017)Abdomen and pelvis (02/14/2017)KUB X-ray (02/13/2017)Ultrasound RUQabdomen (02/13/2017)CXR - Chest X-ray (02/13/2017)Cervical cytology brush (02/02/2017)Mammogram (10/13/2016)Open right inguinal hernia with mesh (08/26/2016)Procedure (08/2016)Cataract surgery L. eye (08/11/2016)Cataract surgery (07/21/2016)US - Ultrasound right groin nonvascular (06/23/2016)Pap smear for cervical cancer screening (02/02/2016)Doppler venous (01/06/2016)Chest x-ray (12/16/2015)X-ray right ribs (12/16/2015)Surgery (11/2015)Removal of osseointefrated implant (11/06/2015)X-ray (09/01/2015)X-ray right shoulder (09/01/2015)Procedure (08/22/2015)Right Shoulder XRAY (08/22/2015)Bone density scan (10/17/2014)Procedure (10/11/2014)Mammogram (10/11/2014)Colonoscopy (02/13/2014)Procedure- left ear cochlear (12/12/2013)Mammogram - screening (10/10/2013)Pacemaker (04/05/2013)Colonoscopy (2007)melenoma--left faceAngioplasty Medications alendronate(Fosamax 70 mg oral tablet), 70 mg= 1 tab, PO, q7days, 3 refills allopurinol(allopurinol 300 mg oral tablet), 300 mg= 1 tab, PO, Daily, 3 refills apixaban(Eliquis 5 mg oral tablet), 5 mg= 1 tab, PO, bid aspirin(aspirin 81 mg oral delayed release tablet), 81 mg= 1 tab, PO, Daily, 3 refills calcium and vitamin D combination(calcium (as carbonate)-vitamin D 500 mg-400 intl units oral tablet, chewable), 1 tab, PO, Daily empagliflozin(Jardiance 10 mg oral tablet), 10 mg= 1 tab, PO, Daily ezetimibe-simvastatin(Vytorin 10 mg-40 mg oral tablet), 1 tab, PO, Daily, 3 refills furosemide(Lasix 40 mg oral tablet), 40 mg= 1 tab, PO, Daily isosorbide mononitrate(isosorbide mononitrate 30 mg oral tablet, extended release), See Instructions, 3 refills metoprolol(metoprolol succinate 50 mg oral tablet, extended release), 50 mg= 1 tab, PO, Daily nitroglycerin(nitroglycerin 0.4 mg sublingual tablet), See Instructions, 3 refills oxyCODONE(oxyCODONE 5 mg oral tablet), 5 mg= 1 tab, PO, q4h, PRN Allergies AugmentinPapular rash BactrimPapular rash PCN (penicillin)hives, passing out heparinthrombocytopenia Social History Smoking Status Former Smoker, quit > 1 yr Alcohol - Low Risk Exercise - Regular exercise Exercise type:Weight lifting Home/Environment Lives with:Children Feels unsafe at home:No Safe place to go:No Family/Friends available to help:Yes Tobacco - Denies Tobacco Use - Comments: <1PPD smoked for 25 year, quited 1998 Family History Heart attack: Father, Sister, Son, MGM and PGF. High Blood Pressure: Mother. Throat cancer..: Mother. Health Status Family Member(s) Immunizations Vaccine Date Status influenza virus vaccine, inactivated 06/02/2020 Given influenza virus vaccine, inactivated 05/24/2019 Given zoster vaccine, inactivated 01/2019 Recorded zoster vaccine, inactivated 09/2018 Recorded influenza virus vaccine, inactivated 06/01/2018 Given influenza virus vaccine, inactivated 05/05/2017 Given influenza virus vaccine, inactivated 05/11/2016 Given influenza virus vaccine, inactivated 04/30/2015 Given pneumococcal 13-valent vaccine 06/26/2014 Given influenza virus vaccine, inactivated 06/26/2014 Given tetanus/diphtheria/pertuss, acel (Tdap) 06/22/2013 Given influenza virus vaccine, inactivated 05/18/2013 Given influenza virus vaccine, inactivated 07/14/2012 Given zoster vaccine live 06/01/2012 Recorded pneumococcal 23-valent vaccine 01/14/2004 Recorded tetanus toxoids-diphtheria, Td (Adult) 2001 Recorded Recommendations Health Maintenance Pending(in the next year) OverDue Falls Plan of Care due08/13/22and every 1year Adult Influenza Vaccine due02/12/23and every 1year Due Adult COVID-19 Vaccination due04/12/23Unknown Frequency Due In Future Medicare Annual Wellness Visit not due until08/26/23and every 1year Body Mass Index not due until04/11/24and every 1year Satisfied(in the past 1 year) Satisfied Body Mass Index on04/12/23.Satisfied by ADAN Bosch Bobbi Diabetes Nephropathy Management on04/01/23.Satisfied by Contributor_system, [employer] Annual Wellness Visit on08/26/22.Satisfied by MD Vazquez Juan Electronic Signature on File Electronically Reviewed/Signed by: HAROON Grant Author Signature Dt/Tm:04/12/2023 12:30 PM Department of Family Medicine TB Patient Care team information Care Team Personnel Name: HAROON Iqbal Tara Position: Nurse Pract - Family Med Member Role: Lifetime Relationship Address: Address: [address] [place] [address] [place] Name: DO Willson Kelly Position: Resident Member Role: Lifetime Relationship Address: Address: [address] [place] [address] [place] Name: MD Vazquez Juan Position: Physician - Family Med Member Role: Primary Care Provider Address: Address: [address] [place] [address] [place] Name: Campos Martines Brittani Position: Pharmacist Member Role: Pharmacy - Lifetime Care Team Related Persons Name: ANDRE MANLEY Name: ANDRE MANLEY Address: home [address] [place] [address] Name: PAULIE MANLEY Address: home [address] [place], [place] [id number]
--- OUTSIDE RECORDS SUMMARY | 2023-07-14 22:54 | External Medical Summary | Continuity of Care Document ---
Author Name Unknown Organization [facility] [address] [place], [place] [id number] Care Team Providers Care Fish Cake Maker Name Role Phone Fco Vazquez Primary Care Physician [phone] [facility]counter [facility] [id number] Date(s): 06/05/23 - 06/05/23 [facility] [address] [facility] [address] [facility] [place], [phone] Encounter Diagnosis Diverticulitis of intestine, part unspecified, without perforation or abscess without bleeding(Final) - Diarrhea, unspecified(Final) - Discharge Disposition: Home or Self Care Attending Physician: MD Acosta Michael J Referring Physician: MD Acosta Michael J Allergies, Adverse Reactions, Alerts Substance Reaction Severity Status heparin thrombocytopenia Active Augmentin Papular rash Active Bactrim 1 Papular rash Active PCN (penicillin) hives, passing out Activ e 1Patient was taking both Augmentin and Bactrim - one of these caused a diffuse papular rash Immunizations Given and Recorded Vaccine Date Status [...] Daily, Disp# 90 tab, Refills: 3, Pharmacy: [facility] Start Date: 02/23/23 Status: Ordered aspirin 81 mg oral delayed release tablet Start: 02/23/23 19:18:00 EDT, 1 tab, PO, Daily, Disp# 90 tab, Refills: 3, Pharmacy: [facility] Start Date: 02/23/23 Status: [...] beverage, or medication of the day, Pharmacy: [facility] Start Date: 02/23/23 Status: Ordered isosorbide mononitrate 30 mg oral tablet, extended release Start: 02/23/23 19:18:00 EDT, See Instructions, Disp# 90 tab, Refills: 3, TAKE ONE TABLET BY MOUTH EVERY MORNING, Pharmacy: [facility] Start Date: 02/23/23 Status: [...] pain. Call 911 if no relief!, Pharmacy: [facility] Start Date: 02/23/23 Status: Ordered oxyCODONE 5 mg oral tablet Start: 04/03/23 10:17:00 EDT, 1 tab, PO, q4h, Disp# 8 tab, Refills: 0, PRN: as needed for pain, Pharmacy: [facility] Start Date: 04/03/23 Status: Ordered Vytorin 10 mg-40 mg oral tablet Start: 02/23/23 19:18:00 EDT, 1 tab, PO, Daily, Disp# 90 tab, Refills: 3, Pharmacy: [facility] Start Date: 02/23/23 Status: Ordered Problem List Condition Confirmation Course Effective Dates Status H ealth Status Informant Angioplasty Confirmed Active Anterior dislocation of shoulder Confirmed Active Atherosclerosis of aortic arch 1 Confirmed Active AF (atrial fibrillation) Confirmed Active CAD 2, 3 Confirmed 11/09/10 Active Cardiac catheterization Confirmed Active Changing skin lesion Confirmed Active Chronic kidney disease, stage 3a 4 Confirmed Active Atherosclerotic heart disease of [place] coronary artery with unspecified angina pectoris Confirmed [...] colon Confirmed Active Melanoma 6 Confirmed Active [place] (myocardial infarction) Confirmed Active Mitral regurgitation Confirmed [...] Atherosclerosis of aortic arch 2s/p stent 3s/p KS and pacer. sees Dr. Springer 4See outside note 03/25/22 03/12/22 [facility], [place] [id number] Mason 7s/p pacer 8face bcc 9resolved. sees Dr. Rodrigez Procedures Procedure Date Related Diagnosis Body Site [...] 55 10/10/13 Completed Pacemaker 04/05/13 Completed Colonoscopy 56 2007 Completed Angioplasty Completed melenoma--left face Compl [...] significant 54implant in left ear. 55normal 56Diverticulosis Results Orders for Microbiology Reports Name Date C difficile Toxin Gene PCR Assay. (C DIF FICILE TOXIN) 06/05/23 Microbiology Reports TEST:C.Diff Toxin STATUS:Auth (Verified) BODY SITE: SOURCE:Stool COLLECTED DATE/TIME:06/05/23 12:00 PM Culture No Clostridium difficile toxin genes detected. Social History Social History Type Response Tobacco 1 Smoking Status Former Smoker, quit > 1 yr Sex Female 1<1PPD smoked for 25 year, quited 1998 Patient Care team information Care Team Personnel Name: HAROON Iqbal Tara Position: Nurse Pract - Family Med Member Role: Lifetime Relationship Address: Address: [address] [place] [address] [place] Name: DO Willson Kelly Position: Resident Member Role: Lifetime Relationship Address: Address: [address] [place] [address] [place] Name: MD Vazquez Juan Position: Physician - Family Med Member Role: Primary Care Provider Address: Address: [address] [place] [address] [place] Name: Campos Martines Brittani Position: Pharmacist Member Role: Pharmacy - Lifetime Care Team Related Persons Name: ANDRE MANLEY Address: home [address] [place] [address] Name: ANDRE MANLEY Name: PAULIE MANLEY Address: home [address] [facility], [place] [id number]
--- OUTSIDE RECORDS SUMMARY | 2023-07-14 22:54 | External Medical Summary | Continuity of Care Document ---
Author Name Unknown Organization [facility] Address [address] [place] [address] [id number] Care Team Providers Care Bilingual Loan Processor Name Role Phone Fco Watlers Primary Care Physician [phone] [facility]counter [facility] [id number] Date(s): 03/29/23 - 04/03/[address] [phone] Encounter Diagnosis Mass of colon(Discharge Diagnosis) - 03/29/23 Discharge Disposition: Home or Self Care Attending Physician: MD Acosta Michael J Admitting Physician: MD Acosta Michael J Allergies, Adverse Reactions, Alerts Substance Reaction Severity Status heparin thrombocytopenia Active Augmentin Papular rash Active Bactrim 1 Papular rash Active PCN (penicillin) hives, passing out Activ e 1Patient was taking both Augmentin and Bactrim - one of these caused a diffuse papular rash Functional Status 04/03/23 Neurological Symptoms None ADLs Minimal assistance Facial Symmetry Symmetric Gait Steady Swallowing Difficulty None Level of Consciousness Neuro Alert Hallucinations Present None History of Fall in Last 3 Months Lewis N o Presence of Secondary Diagnosis Lewis Ye s Use of Ambulatory Aid Lewis Crutches/can e/walker IV/Heparin Lock Fall Risk Lewis Yes Gait/Transferring Fall Risk Lewis Normal /bedrest/immobile Mental Status Fall Risk Lewis Oriented t o own ability Lewis Fall Risk Score 50 Lewis Fall Risk High risk Speech Pattern Clear Immunizations Given and Recorded Vaccine Date Status [...] Daily, Disp# 90 tab, Refills: 3, Pharmacy: [facility] Start Date: 02/23/23 Status: Ordered aspirin 81 mg oral delayed release tablet Start: 02/23/23 19:18:00 EDT, 1 tab, PO, Daily, Disp# 90 tab, Refills: 3, Pharmacy: [facility] Start Date: 02/23/23 Status: [...] beverage, or medication of the day, Pharmacy: [facility] Start Date: 02/23/23 Status: Ordered isosorbide mononitrate 30 mg oral tablet, extended release Start: 02/23/23 19:18:00 EDT, See Instructions, Disp# 90 tab, Refills: 3, TAKE ONE TABLET BY MOUTH EVERY MORNING, Pharmacy: [facility] Start Date: 02/23/23 Status: Ordered Lasix 20 mg oral tablet Start: 07/14/21 17:07:00 EST, See Instructions, Disp# 45 tab, Refills: 3, 1/2 tab PO Daily prn, PRN: edema, Pharmacy: [id number] Start Date: 07/14/21 Status: Ordered metoprolol tartrate 25 mg, tablet, PO, 04/03/23 9:00:00 EDT, 04/03/23 9:00:00 EDT, hold if SBP <110 or HR <55, 03/30/23 9:16:00 EDT Start Date: 04/03/23 Stop Date: 04/03/23 Status: Completed metoprolol tartrate 25 mg, tablet, PO, 04/02/23 21:00:00 EDT, 04/02/23 21:00:00 EDT, hold if SBP <110 or HR <55, 03/30/23 9:16:00 EDT Start Date: 04/02/23 Stop Date: 04/02/23 Status: Completed nitroglycerin 0.4 mg sublingual tablet Start: 02/23/23 19:18:00 EDT, See Instructions, Disp# 25 tab, Refills: 3, Place 1 tab under the tongue every 5 minutes for 3 doses if needed for chest pain. Call 911 if no relief!, Pharmacy: [facility] Start Date: 02/23/23 Status: Ordered oxyCODONE 5 mg oral tablet Start: 04/03/23 10:17:00 EDT, 1 tab, PO, q4h, Disp# 8 tab, Refills: 0, PRN: as needed for pain, Pharmacy: [facility] [place] Start Date: 04/03/23 Status: Ordered Vytorin 10 mg-40 mg oral tablet Start: 02/23/23 19:18:00 EDT, 1 tab, PO, Daily, Disp# 90 tab, Refills: 3, Pharmacy: [facility] Start Date: 02/23/23 Status: Ordered Mental Status 03/29/23 Communication Barrier Present No Primary Language Slovenian Problem List Condition Confirmation Course Effective Dates Status H ealth Status Informant Angioplasty Confirmed Active Anterior dislocation of shoulder Confirmed Active Atherosclerosis of aortic arch 1 Confirmed Active AF (atrial fibrillation) Confirmed Active CAD 2, 3 Confirmed 11/09/10 Active Cardiac catheterization Confirmed Active Changing skin lesion Confirmed Active Chronic kidney disease, stage 3a 4 Confirmed Active Atherosclerotic heart disease of [place] coronary artery with unspecified angina pectoris Confirmed [...] colon Confirmed Active Melanoma 6 Confirmed Active NH (myocardial infarction) Confirmed Active Mitral regurgitation Confirmed [...] Atherosclerosis of aortic arch 2s/p stent 3s/p NH and pacer. sees Dr. Springer 4See outside note 03/25/22 03/12/22 [facility]phrology, [place] [id number] Mason 7s/p pacer 8face bcc 9resolved. sees Dr. Rodrigez Diagnosis Diagnosis Type Effective Dates Health Status Cl inical Service Informant Mass of colon Discharge Diagnosis 03/29/23 Non-Specified Procedures Procedure Date Related Diagnosis Body Site Status Colonoscopy 1, 2 03/16/[address] of abdomen and pelvis 3 03/16/[address] of chest 4 03/16/23 Completed Mammogram 5 01/17/23 Completed History of hernia repair 11/2022 Completed Shave biopsy 09/02/22 Completed Ultrasound abdomen ltd hernia 6 08/30/22 Completed MOHS 1 STAGE T/A/L 03/04/22 Comple gordon Shave biopsy 7 02/04/22 Completed Mammogram - screening 8 01/14/22 C ompleted Bone density scan 9 10/22/21 Compl eted Echocardiogram 05/20/[address] of cervical spine 10 05/19/[address] of head 11 05/19/21 Completed Hip fracture 12 05/19/21 Completed Hip X-ray 13 05/19/21 Completed A scan ultrasound right uppe r extremity 14 02/15/20 Completed Plain X-ray of right forearm 15 02/15/20 Completed X-ray of wrist right 16 02/15/20 C ompleted Mammogram - screening 17 01/10/20 Completed DEXA - dual energy X-ray absorptiometry 18 07/20/19 Completed Left Subclavian Venography w ith Pacer with Atrial lead 01/02/19 Completed Pacemaker care 19 11/02/18 Complet ed Mammogram - screening 20 10/18/18 Completed Mammogram 21 10/17/17 Completed CXR - Chest X-ray 22 10/15/17 Comp leted DEXA - Dual energy X-ray cece ton absorptiometry 23 06/16/[address] of brain 24 06/09/17 Completed Cholangiogram 25 02/17/17 Complete d Cholecystectomy 26, 27 02/17/17 Co mpleted Abdomen and pelvis 28 02/14/17 Com pleted CXR - Chest X-ray 29 02/13/17 Comp leted KUB X-ray 30 02/13/17 Completed Ultrasound RUQ abdomen 31 02/13/17 Completed Cervical cytology brush 32 02/02/17 Completed Mammogram 33 10/13/16 Completed Open right inguinal hernia with mesh 08/26/16 Completed Procedure 34 08/2016 Completed Cataract surgery L. eye 08/11/16 C ompleted Cataract surgery 35 07/21/16 Compl eted US - Ultrasound right groin nonvascular 36 06/23/16 Completed Pap smear for cervical cance r screening 37 02/02/16 Completed Doppler venous 38 01/06/16 Complet ed Chest x-ray 39 12/16/15 Completed X-ray right ribs 40 12/16/15 Compl eted Surgery 41 11/2015 Completed Removal of osseointefrated implant 42 11/06/15 Completed X-ray 43 09/01/15 Completed X-ray right shoulder 44 09/01/15 C ompleted Procedure 45 08/22/15 Completed Right Shoulder XRAY 46 08/22/15 Co mpleted Bone density scan 10/17/14 Complet ed Mammogram 47 10/11/14 Completed Procedure 48 10/11/14 Completed Colonoscopy 49, 50 02/13/14 Comple gordon Procedure- left ear cochlear 51 12/12/13 Completed Mammogram - screening 52 10/10/13 Completed Pacemaker 04/05/13 Completed Colonoscopy 53 2007 Completed Angioplasty Completed melenoma--left face Compl eted 1Pathology results: Colon, sigmoid, biopsy: Chronic focally active colitis with architectural distortion. Negative for malignancy. 2Likely malignant completely obstructin tumor in the sigmoid colon, biopsied, The rectum is normal 31) Extensive colonic idverticulosis. Circumferential wall thickening of [...] related to cholecystectomy. No suspicous hepatic lesions. 41) N0 definite acute process within the chest. 2) Minimal ground glass opactities with mosaic attenuation within th elungs. The findings likely reflect atelectasis although air trapping could appear similar. No consilidation to suggest pneumonia.Scattered tiny pulmonary nodules which are lkely benign. 3) Moderate cardiomegaly 5There is no mammographic evidence of malignancy. A 1 year screening mammogram is recommended. 6Small fat filled left inguinal hernia 7left lateral brow 8There is no mammographic evidence of malignancy. A 1 year screening mammogram is recommended 01-15-2023 The pt will recieve written notification of results. 9left femur osteopenia -1.8 left forearm osteopenia -2.1 z-score 0.5 10Impression: Severe degenerative changes with airspace disease and neural foraminal stenosis at multiple levels. No evidence of acute fracture. 11Impression: No acute intracranial hemorrhage, skull fractures, or scalp swelling. 12repair 13Impression: Acute comminuted, angulted, impacted and displaced intertrochanteric fracture of the right femur. 141. There is no sonographic evidence of DVT identified in the RUE. 2. SQ soft tissue edema with fluid and phlegmonous change is seen in the right wrist at the site ofinterest. No organized/drainable fluid collection is seen at this time. 15Soft tissue swelling with no acute bony abnormality identified. 16Soft tissue swelling with no acute osseous abnormality identified. 17There is no mammographic evidence of malignancy. A 1 year screening mammogram is recommended. 18AP spine L1-L3 T-score: 0.7 Femur Neck Left T-score: -1.1 Femur Neck Right T-score: -1.0 Femur Total Mean T-score: -1.1 19new pacemaker implanted 20There is no mammographic evidence of malingnancy. A 1 year screening mammogram is recommended. Tthepatient will receive written notification of the results. 21There is no mammographic evidence of malignancy. 22Impression: 1. No acute cardiopulmonary disease. 2. Right rib fractures, which may be new since the prior exam. 23-1.1 Recommend f/u in June 2019 24Impression: Senescent changes as above with no hemorrhage, enhancing mass, or evidence of acute territorial ischemia by Ct criteria. 25intraoperative cholangiogram: fluoroscopy provided for an intraoperative cholangiogram status post cholecystectomy. probable air bubbles seen. mild biliary ductal prominence presumably on a post operative basis. 26lap cholecystectomy with cholangiogram 27final diagnosis: Gallbladder, laparoscopic cholecystectomy: acute and chronic cholecystitis. No calculi identified. 28Study limited d/t lack of IV and oral contrast Severe pandiverticulosis No renal, ureteral or bladder diverticula No evidence of bowel obstruction. No evidence of free air Stable sigmoid wall thickening No evidence of acute appendicitis Partial ankylosis of the right SI joint Equivocal mild diffuse pancreatic edame. 291. Cardiomegaly and cardiac pacemaker. there is mild pulmonary vascular congestion. 2. No airspace consolidation is seen typical for pneumonia and no large pleural effusion is identified. 30Nonobstructed abdominal bowel yenny pattern noting moderate constipation 31The gallbladder is distended with associated gallbladder wall thickening and edema. Pericholecysticfluid is noted. No shadowing gallstones are identified and a sonographic Menchaca's sign is equivical. Findings are concerning for acute cholecystitis. Surgical consult is advised. Consider a nuclear hepatobiliary scan for further assessment if cholecystitis does not fit the clinical presentation. 32Negative for intraepithelial lesion or malignancy. 33Normal ] 34Trigger finger surgery. 35Right cataract surgery. 36Impression: Small and reducible fat-containing right inguinal hernia. there is questionable bowel within the hernia. 37diagnosis: negative for intraepithelial lesion or malignancy. 381. Normal study. No evidence of deep or superificial vein thrombosis in the left leg. 2. No abnormality found in the contralaeral common femoral vein. 39Impression: Cardiomegaly. Multiple right rib deformities. Thin linear lucency at the lateral right base likely oscar silhouetted by discoid atelectasis. Tiny basilar pneumothorax felt less likely. 40Impression: Study a bit technically suboptimal. However there are fractures seen involving the right sixth, seventh and eighth ribs. 41removed cochlear implant 42Removal of osseointegrated implant 43Anatomic alignment of the glenohumeral joint s/p reduction. No fx identified. 44Right anterior shoulder dislocation. No fractures. 45Anatomic alignment status post closed reduction 46Anterior dislocation right shoulder 47benign 48Urine cytology: Benign squamous and urothelial cells No malignant cells seen 49diverticulosis in the entire colon 50Polapsed mucosa-not significant 51implant in left ear. 52normal 53Diverticulosis Results Laboratory List Name Date Magnesium Level 04/02/23 Nephrology Panel 04/02/23 Sodium, Urine, Random (Urine Sodium, Ran dom) 04/01/23 Creatinine, Urine, Random (Urine Creatin ine, Random) 04/01/23 Nephrology Panel 04/01/23 Complete Blood Count (CBC w Platelets) Magnesium Level 03/31/23 Nephrology Panel 03/31/23 Complete Blood Count (CBC w Platelets) Magnesium Level 03/30/23 Complete Blood Count (CBC w Platelets) Urine Analysis w/ Reflexed Microscopic. 03/29/23 Blood Type/Antibody Screen ( for possible transfusion) (Type and Screen (for possible transfusion)) 03/29/23 Blood Type (ABO/Rh) (ABO/RH) 03/29/23 Most recent to oldest [Reference Range]: 1 2 3 ABO/Rh O POSITIVE (03/29/23 12:35 PM) O POSITIVE (03/29/23 12:15 PM) Antibody Scr NEGATIVE (03/29/23 12:35 PM) Expires at 0600AM on 04/01/2023 (03/29/23 12:35 PM) # Units 0 (03/29/23 12:35 PM) R Number NRQ (03/29/23 12:35 PM) eGFR CKD-EPI [>60 mL/min/1.73 m2] 75 mL/min/1.73 m2 (04/02/23 8:24 AM) 41 mL/min/1.73 m2 *LOW* (04/01/23 9:37 AM) 43 mL/min/1.73 m2 *LOW* (03/31/23 8:47 AM) Estimated CrCl 43.64 mL/min (04/02/23 9:15 AM) 26.67 mL/min (04/01/23 10:15 AM) 27.32 mL/min (03/31/23 9:31 AM) MPV [9.0-12.2 fL] 10.0 fL (03/31/23 8:47 AM) 10.3 fL (03/30/23 8:51 AM) 9.8 fL (03/29/23 8:11 PM) RDW [11.5-14.2 %] 14.3 % *HI* (03/31/23 8:47 AM) 14.1 % (03/30/23 8:51 AM) 13.6 % (03/29/23 8:11 PM) Component RED CELLS (03/29/23 12:35 PM) Squamous Epithelial Cells (u) FEW (03/29/23 2:32 PM) Mucous (u) FEW (03/29/23 2:32 PM) Anion Gap [5-14 mmol/L] 6 mmol/L (04/02/23 8:24 AM) 7 mmol/L (04/01/23 9:37 AM) 7 mmol/L (03/31/23 8:47 AM) Alb [3.5-5.2 g/dL] 2.4 g/dL *LOW* (04/02/23 8:24 AM) 2.7 g/dL *LOW* (04/01/23 9:37 AM) 2.4 g/dL *LOW* (03/31/23 8:47 AM) Bact (u) [NONE-NONE] NONE (03/29/23 2:32 PM) Bili (u) [NEG] NEGATIVE (03/29/23 2:32 PM) BUN [6-23 mg/dL] 21 mg/dL (04/02/23 8:24 AM) 26 mg/dL *HI* (04/01/23 9:37 AM) 19 mg/dL (03/31/23 8:47 AM) Ca [8.4-10.2 mg/dL] 8.2 mg/dL *LOW* (04/02/23 8:24 AM) 8.1 mg/dL *LOW* (04/01/23 9:37 AM) 7.9 mg/dL *LOW* (03/31/23 8:47 AM) Cl- [98-107 mmol/L] 105 mmol/L (04/02/23 8:24 AM) 101 mmol/L (04/01/23 9:37 AM) 99 mmol/L (03/31/23 8:47 AM) HCO3 [22-29 mmol/L] 29 mmol/L (04/02/23 8:24 AM) 27 mmol/L (04/01/23 9:37 AM) 29 mmol/L (03/31/23 8:47 AM) Cret [0.60-1.00 mg/dL] 0.77 mg/dL (04/02/23 8:24 AM) 1.26 mg/dL *HI* (04/01/23 9:37 AM) 1.23 mg/dL *HI* (03/31/23 8:47 AM) Glu [74-109 mg/dL] 110 mg/dL 1 *HI* (04/02/23 8:24 AM) 101 mg/dL 2 (04/01/23 9:37 AM) 121 mg/dL 3 *HI* (03/31/23 8:47 AM) Hct [35-44 %] 32.4 % *LOW* (03/31/23 8:47 AM) 36.8 % (03/30/23 8:51 AM) 35.9 % (03/29/23 8:11 PM) Hgb [11.7-15.0 g/dL] 10.1 g/dL *LOW* (03/31/23 8:47 AM) 11.7 g/dL (03/30/23 8:51 AM) 10.9 g/dL *LOW* (03/29/23 8:11 PM) K [3.5-5.1 mmol/L] 4.3 mmol/L (04/02/23 8:24 AM) 4.1 mmol/L (04/01/23 9:37 AM) 4.3 mmol/L (03/31/23 8:47 AM) Ketones [NEG mg/dL] NEGATIVE mg/dL (03/29/23 2:32 PM) Leuk Est [NEG] NEGATIVE (03/29/23 2:32 PM) MCH [28-33 pg] 29.4 pg (03/31/23 8:47 AM) 30.5 pg (03/30/23 8:51 AM) 29.0 pg (03/29/23 8:11 PM) MCHC [32-36 g/dL] 31.2 g/dL *LOW* (03/31/23 8:47 AM) 31.8 g/dL *LOW* (03/30/23 8:51 AM) 30.4 g/dL *LOW* (03/29/23 8:11 PM) MCV [81-96 fL] 94.2 fL (03/31/23 8:47 AM) 95.8 fL (03/30/23 8:51 AM) 95.5 fL (03/29/23 8:11 PM) Mg [1.6-2.6 mg/dL] 1.8 mg/dL (04/02/23 8:24 AM) 1.9 mg/dL (03/31/23 8:47 AM) 1.7 mg/dL (03/30/23 8:51 AM) Na [136-145 mmol/L] 140 mmol/L (04/02/23 8:24 AM) 135 mmol/L *LOW* (04/01/23 9:37 AM) 135 mmol/L *LOW* (03/31/23 8:47 AM) Nitrite (u) [NEG] NEGATIVE (03/29/23 2:32 PM) PO4 [2.5-4.5 mg/dL] 2.1 mg/dL *LOW* (04/02/23 8:24 AM) 2.3 mg/dL *LOW* (04/01/23 9:37 AM) 3.0 mg/dL (03/31/23 8:47 AM) Plts [150-350 K/uL] 185 K/uL (03/31/23 8:47 AM) 179 K/uL (03/30/23 8:51 AM) 168 K/uL (03/29/23 8:11 PM) RBC [3.90-5.00 M/uL] 3.44 M/uL *LOW* (03/31/23 8:47 AM) 3.84 M/uL *LOW* (03/30/23 8:51 AM) 3.76 M/uL *LOW* (03/29/23 8:11 PM) Appear (u) CLEAR (03/29/23 2:32 PM) Color (u) YELLOW (03/29/23 2:32 PM) Creat (u) 37.07 mg/dL 4 (04/01/23 8:25 PM) Glu (u) [NEG mg/dL] NEGATIVE mg/dL (03/29/23 2:32 PM) Hgb (u) [NEG] SMALL *Abnormal* (03/29/23 2:32 PM) Na (u) 14 mmol/L 5 (04/01/23 8:25 PM) pH (u) [5.0-8.0 unit] 6.0 unit (03/29/23 2:32 PM) Prot (u) [NEG mg/dL] 100 mg/dL *Abnormal* (03/29/23 2:32 PM) RBC (u) [0-4 /HPF] 0-4 /HPF (03/29/23 2:32 PM) Urobili [0.1-1.0 EU/dL] 0.1-1.0 EU/dL (03/29/23 2:32 PM) SG [1.005-1.030] 1.010 (03/29/23 2:32 PM) WBC (u) [0-4 /HPF] 0-4 /HPF (03/29/23 2:32 PM) WBC [4.0-10.4 K/uL] 16.49 K/uL *HI* (03/31/23 8:47 AM) 19.07 K/uL *HI* (03/30/23 8:51 AM) 15.57 K/uL *HI* (03/29/23 8:11 PM) 1Result Comment: ADA recommendation for FASTING Serum/Plasma Glucose: Normal: 70-100 mg/dL Prediabetes: 100-125 mg/dL Diabetes: 126 mg/dL or higher 2Result Comment: ADA recommendation for FASTING Serum/Plasma Glucose: Normal: 70-100 mg/dL Prediabetes: 100-125 mg/dL Diabetes: 126 mg/dL or higher 3Result Comment: ADA recommendation for FASTING Serum/Plasma Glucose: Normal: 70-100 mg/dL Prediabetes: 100-125 mg/dL Diabetes: 126 mg/dL or higher 4Result Comment: Reference Range for Random Urine Not Established. 5Result Comment: Reference Range for Random Urine Not Established. Radiology Reports * Exam Date Time Procedure Performing Provider Status 04/01/23 3:05 PM XR Chest 1 View Alejandro Wolfe; Final Notes: (XR Chest 1 View) Reason For Exam: Identification of pacer type XR Chest 1 View EXAMINATION: XR Chest 1 View CLINICAL HISTORY: Identification of pacer type COMPARISON: CT of the abdomen and pelvis 03/16/2023. FINDINGS: Semiupright AP view of the chest. Left chest wall pacemaker with leads in the right atrium and right ventricle. Additional abandoned lead. Cardiomegaly. Normal pulmonary vasculature. Streaky opacities in the left lower lung, likely atelectasis. Elevated left hemidiaphragm. Pneumoperitoneum. No large pleural effusion. Subcutaneous emphysema along the left lower chest wall. No acute osseous abnormality. IMPRESSION: 1. Left chest wall wall pacemaker with leads in the right atrium and right ventricle, which are appropriately positioned. Additional abandoned lead present. 2. Pneumoperitoneum, compatible with recent abdominal surgery. Dr. Galina Newton is the dictating resident. Finalized reports status indicates that the attending has reviewed the images and report, and agrees with the interpretation. Preliminary report status shouldbe regarded as NOT interpreted by the attending radiologist. Workstation ID: [id number] Final Dictated by:MD Newton Mary Dictated DT/TM:04/01/2023 3:40 Resident:MD Newton Mary Signed by:DO Corral Matthew D Signed (Electronic Signature):04/01/2023 3:39 p Vital Signs Most recent to oldest [Reference Range]: 1 2 3 Height 155 cm (8/15/23 12:14 PM) Patient Weight 61.0 kg (03/30/23 4:41 AM) 60 kg (03/29/23 12:14 PM) Body Mass Index 24.97 kg/m2 (03/29/23 12:14 PM) Temperature [36.5-37.9 DegC] 36.5 DegC (04/03/23 4:13 AM) 36.6 DegC (04/02/23 8:25 PM) 36.6 DegC (04/02/23 11:50 AM) Heart Rate 62 bpm (04/03/23 9:48 AM) 62 bpm (04/03/23 4:13 AM) 69 bpm (04/02/23 8:32 PM) Respiratory Rate 18 br/min (04/03/23 9:44 AM) 18 br/min (04/03/23 4:13 AM) 16 br/min (04/02/23 8:25 PM) Blood Pressure 134/69mmHg (04/03/23 4:13 AM) 131/67mmHg (04/02/23 8:25 PM) 133/69mmHg (04/02/23 11:50 AM) Mean Blood Pressure 100 mmHg (04/03/23 4:13 AM) 87 mmHg (04/02/23 8:25 PM) 80 mmHg (04/02/23 11:50 AM) Cuff Pulse Pressure 64 mmHg (04/02/23 8:25 PM) 64 mmHg (04/02/23 11:50 AM) 90 mmHg (04/02/23 6:46 AM) BP Location # 1 Left Arm (04/03/23 4:13 AM) Left Arm (04/02/23 8:25 PM) Left Arm (04/02/23 11:50 AM) Social History Social History Type Response Tobacco 1 Smoking Status Never smoked cigaret dalia Sex Female 1<1PPD smoked for 25 year, quite1998 Surgical operation note * MD Acosta Michael J: PERFORM, MODIFY, MODIFY, MODIFY Event Display: .Operative Report Authored Date: [id number] OPERATIVE REPORT Name: ALEXIS MANLEY Patient Number: [id number] : 1935 Date of Service: 03/29/23 SURGEON: Dr. Tejas Acosta SLIP COVER SEWER(s): Dr. Analilia Marinelli PREOPERATIVE DIAGNOSIS: History of colon cancer, obstructing mass POSTOPERATIVE DIAGNOSIS: Same OPERATION PERFORMED: Diagnostic laparoscopy, robotic converted to open splenic flexure mobilization, low anterior resection, partial omentectomy, flexible sigmoidoscopy, TAP block ANESTHESIA: General COMPLICATIONS: None SPECIMENS: Sigmoid and portion of rectum, descending colon, omentum, anastomotic rings ESTIMATED BLOOD LOSS: 450cc INDICATIONS: The patient is an 87 year old female with a history of HTN, Afib with pacer (?last echo 2020) on anticoagulation, CAD and NH s/p stent, HTN, gout, diverticulosis, and now a near completelarge bowel obstruction. Patient had been doing well until November of 2022 when she had bilateral inguinal hernia repairs. Shortly after this she had changes in her bowel habits with initially more constipation than usual and then smaller stools until it turned into diarrhea. This was impressed on her PCP who ordered a C scope with now findings of a near complete LBO with a large mass in the sigmoid colon. This was biopsied and came back so far negative for malignancy. CT staging imaging of the chest and abdomen was negative for metastatic disease. CEA was 2. Given these findings she was sent urgently for discussion of surgical intervention. Patient has had 3 prior colonoscopies in the past without significant findings, last in 2013. Denies any family history of CRC or IBD issues. She did have a laparoscopic cholecystectomy about 6 yearsago and a hip on the right replaced about 2 years ago. Reports a few pound weight loss since the November time line. No changes in appetite. No blood in the stool. Given these findings, a complex, comprehensive and extensive discussion was initiated with the patient regarding the risks, benefits and alternatives of the procedure. These included but were not limited to mental status changes, delirium, renal failure, deep venous thrombosis, possible stroke, possible heart attack or cardiac arrhythmia, atelectasis, pneumonia, infection, bleeding, ileus, bowel perforation, incisional hernia, injury to nearby structures such as blood vessels or urinary system,and need for open procedure. These were explained to the patient using as little medical jargon as possible. The patient demonstrated satisfactory understanding of their condition as well as these ris ks. The patient elected for operative intervention at this time. FINDINGS: Very large mid to distal sigmoid mass, at least 20cm in size. End to end stapled 28CEEA anastomosis in upper rectum OPERATION: The patient was brought to the operating room and general anesthesia was induced. Prior to arrival, the patient had completed a mechanical and antibiotic bowel prep the night before. The patient was then positioned in the lithotomy position with split leg bed ensuring all bony prominences were padded. A timeout was completed, verifying the correct patient, procedure, site, positioning, any other implants or special equipment prior to incision. An orogastric tube and a Pepe catheter were inserted. The rectum was then irrigated with both sterile water and betadine solution using a 26F pepe catheter and the abdomen was prepped and draped in the usual sterile fashion. Preoperative intravenous antibiotics were given prior to incision along with DVT prophylaxis. Insufflation of the abdominal cavity was done with a 5 mm camera at [facility] in an [employer]. Layers of the abdominal wall were visualized as the trocar was advanced into the abdomen. Insufflation tubing was transferred over to this trocar. A pressure of 15mmHg was established and exploration of the abdominal cavity took place to rule out any injury upon entry or other abscess collections. The liver and peritoneum were examined and were otherwise unremarkable. Following that, the remaining robotic trocars were placed as follows: in the right lower quadrant about 2 finger breaths medial and caudad to the ASIS a 10/12mm stapler port as well as two further 8mm robotic trocars in the left upper quadrant about 8-10cm apart along the line created by the prior two ports. A ernfr8ry trocar for the hardware sales assistant port was placed in the right upper quadrant a few finger breaths belowthe costal margin. At this time the robot was then brought to the left side of the patient and docked. Attention was turned to the splenic flexure. The IMV was identified as it emerged from the duodenum. This was elevated and an incision was made in the peritoneum just below the vessel. The mesentery of the colon was then freed from the retroperitoneum working towards the lateral attachments at the spleen. Gerotas fascia was visualized and protected. When reach could no longer allow for further dissection, the transverse colon was inspected. The omentum was grasped and the lesser sac was entered. This dissection was carried distally towards the plane as started from below, freeing the gastrocolic and gastrosplenic ligaments. Finally the white line of Toldt was examined laterally and freed from the colon, completing the splenic flexure mobilization. The white line was opened then moving distally towards the pelvic brim. The ureter was visualized on the left and protected. Once this was complete, attention was returned to the medial aspect and mesentery. The mass was so large and difficult to manipulate that this portion of the operation would not be possible via the robot. Therefore the decision was made to complete the remaining operation in an open fashion. The robot was undocked and the lower midline skin was opened including the fascia. Once this was completed a large Chris wound protector was placed. This allowed for better manipulation of the tumor and visualization. The sigmoid was then retracted anteriorly and the vascular pedicle was identified. An incision in the peritoneum was done at the level of the sacral promontory and dissection was carried out to bringup the mesentery of the sigmoid from the retroperitoneum. The left ureter and the gonadal vessels were eventually identified and protected at all times. Dissection continued caudad towards the presacral space to the eventual top of the rectum. The ZEE was identified and divided at its origin with the Ligasure energy device. After that, completion of the posterior dissection of the rectum was done in the presacral space as started above. Lateral dissection was performed. Care was taken to avoid injury to the ureters. This allowed identification of the top of the rectum as the distal most aspect of dissection. The rectum was then clampedwith an EndoGIA purple load stapler. The sigmoid was divided after a Destinee clamp was placed on thedistal specimen side and a Doyan clamp on the patient side. The specimen was then handed off the field. There appeared to be no violations of the mesorectal specimen grossly. A 28-mm CEEA stapler was used. A purse string suture of 2-0 prolene was placed around the open end after the anvil was inserted. After that, the proximal end was reintroduced into the abdomen. The insufflation was reestablished and an end-to-end stapled anastomosis was performed using the 28-mm CEEA stapler. Donuts were inspected and found to be intact. The anastomosis was checked for leak using air insufflation test. Flexible sigmoidoscopy was also performed carefully to check the staple line. There was no evidence of tension at the anastomosis. Hemostasis was secured. All trocars were removed under direct vision. There was no evidence of any trocar site bleeding. Closure of the infraumbilical extraction site was done using 0 PDS sutures in a running fashion. The right lower quadrant site fascia was also closed with the Ibrahima-Chris suturepasser with 0-VIcryl sutures. The skin was closed using 4.0 monocryl interrupted subcuticular sutures. The same was done to the port sites. Dressing was applied. The patient tolerated the procedure well and was awakened from general anesthesia and was taken to the post anesthesia care unit in stable condition. All instrument and lap pad counts were reported as correct at the end of the procedure prior to closure. I, Dr. Tejas Acosta, was present and scrubbed for the entirety of the operation. SYNOPTIC ELEMENTS Operation performed with curative intent: yes Tumor location: sigmoid colon Extent of colon and vascular resection: sigmoid resection - inferior mesenteric If patient is excluded from above synoptic elements, please indicate why: n/a Electronic Signature on File CC: HAROON Skinner [facility] [id number] CC: Fco Walters MD [facility] [id number] Electronically Reviewed/Signed by: Tejas Acosta MD Author Signature Dt/Tm:04/03/2023 10:52 AM Division of Colorectal Surgery MINAL .D/C Summary * DO Willson Kelly: PERFORM Event Display: .D/C Summary Authored Date: [id number] [facility] For medical concerns, call: . Address: [address] [place] [phone] (HOME) [phone] (MOBILE) :1935 . Date of Admission:03/29/2023 Date of Discharge:04/03/2023 Physician:MD Acosta Michael J Service:Colorectal Surgery Discharge Disposition: Primary Care Provider/Phone: MD WALTERS JUAN (BUSINESS) [phone] (FAX BUSINESS) Principal Diagnosis: Mass of colon Other Diagnoses: Major Tests and Procedures: Robotic converted to open LAR, B/L TAP blocks 03/29/2023 Hospital Course: Pt was admitted on03/29 and underwent a diagnostic laparoscopy, robotic converted to open splenic flexure mobilization, low anterior resection, partial omentectomy, flexible sigmoidoscopy with TAP blockfor a history of colon cancer with obstructing mass by Dr Acosta. There wereno apparent co mplications and the patient was transferred to [facility] instable condition witha Pepe and a JPdrain. A diet ofclearswas startedpost opand advanced on 03/31. A 500cc bolus was given on 03/30 for low urine output and low blood pressures with systolics 90-100s, MAPs 60-70s.Her Foleycatheter was removed on04/01 and the patient voided independently same day. Bowel function returned on 03/31.Patient was deemed stable for discharge on 04/03, the JOSEPH drain was removed,and discharged home with instructions for follow-up care and appointments. PDMP was reviewed. Exam on Discharge: Vitals & Measurements: T:36.5C TMIN:36.5C TMAX:36.6C HR:62(Monitored) RR:18 BP:134/69 SpO2:98% Oxygen Therapy:Room air General: resting comfortably in bed in no apparent distress HEENT: normocephalic, atraumatic Heart: regular rate, normotensive Chest: nonlabored breathing on room air, saturating 98% Abdomen: soft, nondistended, appropriately tender to palpation ashley- incisionally. Incisions are clean, dry, and intact. JOSEPH in place with 160cc of SS output over the last 24h. Dressing in place withmoderate amount of serosanguineous strikethrough. Extremity: warm and well perfused, moving all extremities spontaneously Neuro: alert and oriented, cranial nerves grossly intact Discharge Medications: 1.Calcium-vitamin D (calcium (as carbonate)-vitamin D 500 mg-400 intl units oral tablet, chewable) 1 tab by mouth once daily. No Dosage Noted. 2.Apixaban (Eliquis 5 mg oral tablet) 5 mg (1 tab) by mouth 2 times daily. 3.Furosemide (Lasix 20 mg oral tablet) See Instructions as needed for edema. 1/2 tab PO Daily prn. 4.Allopurinol (allopurinol 300 mg oral tablet) 300 mg (1 tab) by mouth once daily. 5.Alendronate (Fosamax 70 mg oral tablet) 70 mg (1 tab) by mouth Every 7 days. with 6-8 oz plain water, at least 30 minutes before first food, beverage, or medication of the day. 6.Isosorbide mononitrate (isosorbide mononitrate 30 mg oral tablet, extended release) See Instructions . TAKE ONE TABLET BY MOUTH EVERY MORNING. 7.Ezetimibe-simvastatin (Vytorin 10 mg-40 mg oral tablet) 1 tab by mouth once daily. 8.Aspirin (aspirin 81 mg oral delayed release tablet) 81 mg (1 tab) by mouth once daily. 9.Nitroglycerin (nitroglycerin 0.4 mg sublingual tablet) See Instructions . Place 1 tab under the tongue every 5 minutes for 3 doses if needed for chest pain. Call 911 if no relief!. Allergies and Sensitivities: AugmentinPapular rash BactrimPapular rash PCN (penicillin)hives, passing out heparinthrombocytopenia Tests Pending: None Other Appointments: Provider or Location Time Frame Details about visit Colorectal If you have not been contacted with this appointment information within two business days, please call Surgery Specialties Scheduling [phone]. Discharge Services: No Post-Acute Placement(s) Listed No Post-Acute Service(s) Listed Care Instructions: CARE INSTRUCTIONS: Managing pain:Pain medication may have been ordered for you to be comfortable during your recovery. Taper off of the prescription pain medication as pain decreases. If you have any questions regarding your pain management, please contact the colorectal office at [phone]. You may take prescribed pain medication You may take over the counter Tylenol (acetaminophen) or NSAIDs (ibuprofen, aleve) as directed Care of your incision:After washing your hands, cleanse surgical sites with mild soap and water. You may lightly cleanse your incision while bathing in shower. No tub baths or submerging incision. Do not apply any creams, lotions, ointments to surgical sites. It is normal to experience some numbness around the incision for some time after surgery. This may subside as the incision heals. If you have giovana in your incision, you will have a follow up appointment for removal. If you have asrwj-erpxes-jkbze will come off naturally in about 7-10 days. If you have glue over surgical sites, it may take 2-3 weeks for this to peel off. You may have irregularity to your usual bowel movement habits. It may take several months to returnto a normal pattern. You will have a follow up colorectal clinic appointment. If you are not notified of this appointment in the next 3 days, please call the colorectal office at [phone]-Option 2 or [phone]-Option 4. DIET INSTRUCTIONS: You may not feel like eating regular portions right away. It is normal to have less of an appetite following surgery or hospitalization. In the beginning, try eating smaller meals several times per day. If you do not have much of an appetite, you can add protein and calories by drinking supplements such as Ensure, Boost, [place] Instant Breakfast, Special K, milkshakes, protein shakes Please follow a low residue diet (no fresh fruits, no fresh vegetables) or regular diet if indicated. Please drink lots of fluids (64 ounces per day) of clear liquids-water, sport drinks (Gatorade), lemonade, flavored water. This will help you keep hydrated and prevent constipation. Please limit caffeine. Do not drink alcohol or smoke tobacco products. ACTIVITY INSTRUCTIONS: You may resume your regular home activities as tolerated. If you had surgery: Do not expect your energy level to be the same as it was before surgery. Your body needs more energy to heal, and this may cause you to feel weak or need to take naps Please walk often, be out of bed and active daily. This will help prevent blood clots and pneumonia. You may climb stairs. No lifting greater than 10lbs for 6-8 weeks or until cleared in clinic. No driving until cleared in clinic or discussed with surgeon. . Advance Directive:Health Care Power of Cage Tender I personally spent _ minutes in discharge planning. Electronic Signature on File Electronically Reviewed/Signed by: Dionne Willson DO Author Signature Dt/Tm:04/03/2023 09:52 AM Resident Division of Colorectal Surgery Electronically Reviewed/Signed by: MD Shaniqua Munoz Signature Dt/Tm: 04/03/2023 09:54AM Division of Colorectal Surgery KF Discharge instructions * DO Willson Kelly: PERFORM, MODIFY Event Display: Patient Discharge Instructions Authored Date: [id number] ALEXIS MANLEY :1935 Visit Date:03/29/2023 Patient Discharge Instructions [facility] For medical concerns, call: . Date of Admission:03/29/2023 Date of Discharge:04/03/2023 Physician:MD Acosta Michael J Service:Colorectal Surgery Discharge Disposition: . Advance Directive:Health Care Power of Cage Tender Reason for Hospitalization Mass of colon Your Diagnoses Mass of colon My Health Patient Portal: [facility] makes it easy for you to manage your health information online. My [facility] is a free service that provides you instant, secure access to your medical information anytime, anywhere. Sign in or set up your account today at [email or web address] Thank you for allowing us to assist you with your healthcare needs. If you need additional community resources, [facility] [employer] can help at [email or web address]. 211 can assist you in connecting with social programs based on your unique needs and locations. 211 is an anonymous search that can help you locate resources for: Food, Housing, Transportation, Goods, Education and Healthcare. Medications What How Much When Why Instructions Next Dose New oxyCODONE (oxyCODONE 5 mg oral tablet) 5 Milligram by mouth Every 4 hours as needed for as needed for pain Mass of colon Pickup at [facility] [place] Unchanged alendronate (Fosamax 70 mg oral tablet) 1 tab(s) by mouth Every 7 days with 6-8 oz plain water, at least 30 minutes before first food, beverage, or medication of the day Unchanged allopurinol (allopurinol 300 mg oral tablet) 1 tab(s) by mouth Once daily Unchanged apixaban (Eliquis 5 mg oral tablet) 1 tab(s) by mouth 2 times daily Unchanged aspirin (aspirin 81 mg oral delayed release tablet) 1 tab(s) by mouth Once daily You can restart your aspirin on Unchanged calcium and vitamin D combination (calcium (as carbonate)-vitamin D 500 mg-400 intl unitsoral tablet, chewable) 1 tab(s) by mouth Once daily No Dosage Noted Unchanged ezetimibe-simvastatin (Vytorin 10 mg-40 mg oral tablet) 1 tab(s) by mouth Once daily Unchanged furosemide (Lasix 20 mg oral tablet) See instructions 1/ 2 tab PO Daily prn, As needed for edema Unchanged isosorbide mononitrate (isosorbide mononitrate 30 mg oral tablet, extended release) See instructions TAKE ONE TABLET BY MOUTH EVERY MORNING Unchanged nitroglycerin (nitroglycerin 0.4 mg sublingual tablet) See instructions Place 1 tab under the tongue every 5 minutes for 3 doses if needed for chest pain. Call 911 if no relief! Pharmacy Information [facility] [place]: [address] [place] [address] MIKA Rodriguez [phone] What How Much When Comments Stop Taking acetaminophen (Tylenol Extra Strength) 1,000 Milligram by mouth Every 6 hours Stop Taking metoprolol (metoprolol tartrate 25 mg oral tablet) 1 tab(s) by mouth 2 times daily Allergies AugmentinPapular rash BactrimPapular rash PCN (penicillin)hives, passing out heparinthrombocytopenia What to do next Instructions From Your Doctor CARE INSTRUCTIONS: Managing pain:You may take over the counter Tylenol (acetaminophen) or NSAIDs (ibuprofen, aleve) as directed. You can also use the oxycodone prescribed. Care of your incision:After washing your hands, cleanse surgical sites with mild soap and water. You may lightly cleanse your incision while bathing in shower. No tub baths or submerging incision. Do not apply any creams, lotions, ointments to surgical sites. It is normal to experience some numbness around the incision for some time after surgery. This may subside as the incision heals. If you have giovana in your incision, you will have a follow up appointment for removal. If you have bkzzi-stvios-rslgy will come off naturally in about 7-10 days. If you have glue over surgical sites, it may take 2-3 weeks for this to peel off. You may have irregularity to your usual bowel movement habits. It may take several months to returnto a normal pattern. You will have a follow up colorectal clinic appointment. If you are not notified of this appointment in the next 3 days, please call the colorectal office at [phone]-Option 2 or [phone]-Option 4. DIET INSTRUCTIONS: You may not feel like eating regular portions right away. It is normal to have less of an appetite following surgery or hospitalization. In the beginning, try eating smaller meals several times per day. If you do not have much of an appetite, you can add protein and calories by drinking supplements such as Ensure, Boost, [place] Instant Breakfast, Special K, milkshakes, protein shakes Please follow a low residue diet (no fresh fruits, no fresh vegetables) or regular diet if indicated. Please drink lots of fluids (64 ounces per day) of clear liquids-water, sport drinks (Gatorade), lemonade, flavored water. This will help you keep hydrated and prevent constipation. Please limit caffeine. Do not drink alcohol or smoke tobacco products. ACTIVITY INSTRUCTIONS: You may resume your regular home activities as tolerated. If you had surgery: Do not expect your energy level to be the same as it was before surgery. Your body needs more energy to heal, and this may cause you to feel weak or need to take naps Please walk often, be out of bed and active daily. This will help prevent blood clots and pneumonia. You may climb stairs. No lifting greater than 10lbs for 6-8 weeks or until cleared in clinic. No driving until cleared in clinic or discussed with surgeon. If you notice the following symptoms Fever, chills, nausea, vomiting, or worsening abdominal pain. Contact our Careline at . If unable to contact your physician and you feel it is an emergency, go to the nearest Emergency Room or call 911 Diet Instructions Activity Instructions Follow-Up Appointments Someone Will Contact You Regarding These Appointments Provider or Location Time Frame Details about visit Colorectal If you have not been contacted with this appointment information within two business days, please call Surgery Specialties Scheduling [phone]. The Following Services Have Been Arranged for You No Post-Acute Placement(s) Listed No Post-Acute Service(s) Listed Tests Pending None Procedures Performed Robotic converted to open LAR, B/L TAP blocks 03/29/2023 Special Instructions Common Emergency Awareness Tips Call 911 immediately if: experiencing any of the warning signs and symptoms of stroke: B.E. F.A.S.T. Balance: is there trouble with walking or coordination Eyes: is there double vision or visual loss Face: Smile, do both sides of face move equally Arm: Raise arms, do both arms move equally Speech: Is speech slurred or inappropriate Time: Time is critical, call 911 immediately Heart Attack Signs Chest discomfort: Most heart attacks involve discomfort in the center of the chest and lasts more than a few minutes, or goes away and comes back. It can feel like uncomfortable pressure, squeezing, fullness or pain. Discomfort in upper body: Symptoms can include pain or discomfort in one or both arms, back, neck, jaw or stomach. Shortness of breath: With or without discomfort. Other signs: Breaking out in a cold sweat, nausea, or lightheaded. Remember, MINUTES DO MATTER. If you experience any of these heart attack warning signs, call to get immediate medical attention! Note * Harinder Reyes: PERFORM Event Display: Brief Operative Note Authored Date: [id number] BRIEF OPERATIVE NOTE Name: ALEXIS MANLEY Patient Number: [id number] : 1935 Date of Service: 03/29/2023 Pre-op Diagnosis: History of colon cancer, obstructing mass Post-op Diagnosis: same Procedure: Diagnostic laparoscopy, robotic converted to open splenic flexure mobilization, low anterior resection, partial omentectomy, flexible sigmoidoscopy, TAP block Surgeon: Dave Assistants: Jody Marinelli Groff (MS4) Anesthesia: GETA Estimated Blood Loss: 450ml _ Less than 50ml Drains: n/a, placed pelvic JOSEPH Fluids: see anesthesia report Urinary Output: see anesthesia report Condition: stable at transfer to PACU Complications: none apparent Specimen: Sigmoid and portion of rectum, descending colon, omentum, anastomotic rings _ None Findings: large mid to distal sigmoid mass, at least 20cm in size. End to end stapled 28CEEA anastomosis in upper rectum Check one _ Pharmacologic VTE prophylaxis not indicated _ Standard VTE prophylactic regimen ordered x Pharmacologic VTE prophylaxis contraindicated due to increased risk of intraoperative and / or postoperative bleeding - history of HIT Check one _ No antibiotics indicated _ Standard prophylactic antibiotic regimen ordered x Antibiotic regimen changed due to concern for infection Electronic Signature on File Electronically Reviewed/Signed by: Harinder Reyes Author Signature Dt/Tm:03/29/2023 07:40 PM Medical Student Electronically Reviewed/Signed by: Analilia Marinelli MD Cosigner Signature Dt/Tm: 03/31/2023 11:15 AM Resident Division of Colorectal Surgery DG Patient Care team information Care Team Personnel Name: HAROON Iqbal Tara Position: Nurse Pract - Family Med Member Role: Lifetime Relationship Address: Address: [address] [place] [address] Name: DO Willson Kelly Position: Resident Member Role: Lifetime Relationship Address: Address: [address] [place] [address] [place] Name: MD Walters Juan Position: Physician - Family Med Member Role: Primary Care Provider Address: Address: [address] [place] [address] [place] Name: Campos Martines Brittani Position: Pharmacist Member Role: Pharmacy - Lifetime Care Team Related Persons Name: ANDRE MANLEY Address: home [address] [place] [address] Name: ANDRE MANLEY Name: PAULIE MANLEY Address: home [address] [place], [place] [id number]
--- OUTSIDE RECORDS SUMMARY | 2023-07-14 22:54 | External Medical Summary | Continuity of Care Document ---
Author Name Unknown Organization [address] [place], [place] [id number] Care Team Providers Care System Support Developer Name Role Phone Fco Vazquez Primary Care Physician [phone] Encounter [facility] [id number] Date(s): 05/13/23 - 05/13/23 [place] [address] [place] [facility] [place] [address] [place] [phone] Encounter Diagnosis Body mass index [BMI] 22.0-22.9, adult(Discharge Diagnosis) - 05/13/23 Diverticulitis(Discharge Diagnosis) - 05/13/23 Discharge Disposition: Home or Self Care Attending Physician: MD Dave, Tejas Pruitt Allergies, Adverse Reactions, Alerts Substance Reaction Severity [...] Daily, Disp# 90 tab, Refills: 3, Pharmacy: [facility] Start Date: 02/23/23 Status: Ordered aspirin 81 mg oral delayed release tablet Start: 02/23/23 19:18:00 EDT, 1 tab, PO, Daily, Disp# 90 tab, Refills: 3, Pharmacy: [facility] Start Date: 02/23/23 Status: Ordered calcium [...] beverage, or medication of the day, Pharmacy: [facility] Start Date: 02/23/23 Status: Ordered isosorbide mononitrate 30 mg oral tablet, extended release Start: 02/23/23 19:18:00 EDT, See Instructions, Disp# 90 tab, Refills: 3, TAKE ONE TABLET BY MOUTH EVERY MORNING, Pharmacy: [facility] Start Date: 02/23/23 Status: Ordered Jardiance [...] pain. Call 911 if no relief!, Pharmacy: [facility] Start Date: 02/23/23 Status: Ordered oxyCODONE 5 mg oral tablet Start: 04/03/23 10:17:00 EDT, 1 tab, PO, q4h, Disp# 8 tab, Refills: 0, PRN: as needed for pain, Pharmacy: [facility] [place] Start Date: 04/03/23 Status: Ordered Vytorin 10 mg-40 mg oral tablet Start: 02/23/23 19:18:00 EDT, 1 tab, PO, Daily, Disp# 90 tab, Refills: 3, Pharmacy: [facility] Start Date: 02/23/23 Status: Ordered Mental Status 05/13/23 Barriers to Learning one year None evide nt Mandatory Health Literacy Documentation Yes Communication Barrier Present No Health Literacy Communication Barriers N ever Primary Language Estonian Problem List Condition Confirmation Course Effective Dates Status H ealth Status Informant Angioplasty Confirmed Active Anterior dislocation of shoulder Confirmed Active Atherosclerosis of aortic arch 1 Confirmed Active AF (atrial fibrillation) Confirmed Active CAD 2, 3 Confirmed 11/09/10 Active Cardiac catheterization Confirmed Active Changing skin lesion Confirmed Active Chronic kidney disease, stage 3a 4 Confirmed Active Atherosclerotic heart disease of [place] coronary artery with unspecified angina pectoris Confirmed [...] colon Confirmed Active Melanoma 6 Confirmed Active AZ (myocardial infarction) Confirmed Active Mitral regurgitation Confirmed [...] Atherosclerosis of aortic arch 2s/p stent 3s/p AZ and pacer. sees Dr. Springer 4See outside note 03/25/22 03/12/22 [facility], [place] [id number] Mason 7s/p pacer 8face bcc [address]resolved. sees Dr. Rodrigez Diagnosis Diagnosis Type Effective Dates Health Status Clinical Service Informant Body mass index [BMI] 22.0-22.9, adult Discharge Diagnosis 05/13/23 Non-Specified Diverticulitis Discharge Diagnosis 05/13/23 Non-Specified Procedures Procedure Date Related Diagnosis Body [...] oldest [Reference Range]: 1 Height 155 cm (05/13/23 1:46 PM) Patient Weight 54.0 kg (05/13/23 1:46 PM) Body Mass Index 22.48 kg/m2 (05/13/23 1:46 PM) Social History Social History Type Response Tobacco 1 Smoking Status Former Smoker, quit > 1 yr Sex Female 1<1PPD smoked for 25 year, quited 1998 Patient Care team information Care Team Personnel Name: HAROON Iqbal Tara Position: Nurse Pract - Family Med Member Role: Lifetime Relationship Address: Address: [address] [place] [id number] [place] Name: DO Willson Kelly Position: Resident Member Role: Lifetime Relationship Address: Address: [address] [place] [address] [place] [address] Name: MD Vazquez Juan Position: Physician - Family Med Member Role: Primary Care Provider Address: Address: [address] [place] [address], [place] [address] Name: Campos Martines Brittani Position: Pharmacist Member Role: Pharmacy - Lifetime Care Team Related Persons Name: ANDRE MANLEY Address: home [address] [place] [address] Name: ANDRE MANLEY Name: PAULIE MANLEY Address: home [address] [facility], [place] [id number]
--- OUTSIDE RECORDS SUMMARY | 2023-07-14 22:55 | External Medical Summary | Continuity of Care Document ---
Author Name Unknown Organization [place] [address] [facility] [address] [place], [place] [id number] Care Team Providers Care Strategic Consultant Name Role Phone Fco Vazquez Primary Care Physician [phone] [id number] Date(s): 03/18/23 - 03/18/23 [place] [address] [place] A [facility] [place] [address] [place] [id number] [phone] Encounter Diagnosis Body mass index [BMI] 24.0-24.9, adult(Discharge Diagnosis) - 03/18/23 Large bowel obstruction(Discharge Diagnosis) - 03/18/23 Colon polyp(Discharge Diagnosis) - 03/18/23 Afib(Discharge Diagnosis) - 03/18/23 Discharge Disposition: Home or Self Care Attending Physician: MD Acosta Michael J Allergies, Adverse [...] Daily, Disp# 90 tab, Refills: 3, Pharmacy: [facility] Start Date: 02/23/23 Status: Ordered aspirin 81 mg oral delayed release tablet Start: 02/23/23 19:18:00 EDT, 1 tab, PO, Daily, Disp# 90 tab, Refills: 3, Pharmacy: [facility] Start Date: 02/23/23 Status: Ordered calcium [...] beverage, or medication of the day, Pharmacy: [facility] Start Date: 02/23/23 Status: Ordered isosorbide mononitrate 30 mg oral tablet, extended release Start: 02/23/23 19:18:00 EDT, See Instructions, Disp# 90 tab, Refills: 3, TAKE ONE TABLET BY MOUTH EVERY MORNING, Pharmacy: [facility] Start Date: 02/23/23 Status: Ordered Lasix 20 mg oral tablet Start: 07/14/21 17:07:00 EST, See Instructions, Disp# 45 tab, Refills: 3, 1/2 tab PO Daily prn, PRN: edema, Pharmacy: [id number] Start Date: 07/14/21 Status: Ordered metoprolol tartrate 25 mg oral tablet Start: 02/23/23 19:18:00 EDT, 1 tab, PO, bid, Disp# 180 tab, Refills: 3, Pharmacy: [facility] Start Date: 02/23/23 Status: Ordered nitroglycerin 0.4 mg sublingual tablet Start: 02/23/23 19:18:00 EDT, See Instructions, Disp# 25 tab, Refills: 3, Place 1 tab under the tongue every 5 minutes for 3 doses if needed for chest pain. Call 911 if no relief!, Pharmacy: [facility] Start Date: 02/23/23 Status: Ordered Tylenol Extra Strength Start: 12/22/10 10:33:00, 1,000 mg =, PO, q6h Start Date: 12/22/10 Status: Ordered Vytorin 10 mg-40 mg oral tablet Start: 02/23/23 19:18:00 EDT, 1 tab, PO, Daily, Disp# 90 tab, Refills: 3, Pharmacy: [facility] Start Date: 02/23/23 Status: Ordered Mental Status 03/18/23 Barriers to Learning one year None evide nt Mandatory Health Literacy Documentation Yes Health Literacy Communication Barriers N ever Primary Language Ivorian Problem List Condition Confirmation Course Effective Dates Status H ealth Status Informant Angioplasty Confirmed Active Anterior dislocation of shoulder Confirmed Active Atherosclerosis of aortic arch 1 Confirmed Active AF (atrial fibrillation) Confirmed Active CAD 2, 3 Confirmed 11/09/10 Active Cardiac catheterization Confirmed Active Changing skin lesion Confirmed Active Chronic kidney disease, stage 3a 4 Confirmed Active Atherosclerotic heart disease of [place] coronary artery with unspecified angina pectoris Confirmed [...] 03/25/22 03/12/22 [facility], [place] [id number] Mason 7s/p pacer 8face bcc 9resolved. sees Dr. Rodrigez Diagnosis Diagnosis Type Effective Dates Health Status Clinical Service Informant Body mass index [BMI] 24.0-24.9, adult Discharge Diagnosis 03/18/23 Non-Specified Large bowel obstruction Discharge Diagnosis 03/18/23 Non-Specified Afib Discharge Diagnosis 03/18/23 Non-Specified Colon polyp Discharge Diagnosis 03/18/23 Non-Specified Procedures Procedure Date Related Diagnosis Body [...] 05/19/21 Completed Hip X-ray 13 05/19/21 Completed History of total replacement of right hip joint 05/19/21 Completed A scan ultrasound right uppe [...] Completed Colonoscopy 49, 50 02/13/14 Comple gordon Procedure 51 12/12/13 Completed Mammogram - screening 52 10/10/13 Completed Colonoscopy 53 2007 Completed Angioplasty Completed melenoma--left face Compl eted Pacemaker Completed Procedure 54 Completed 1Pathology results: Colon, sigmoid, biopsy: Chronic focally [...] in the entire colon 50Polapsed mucosa-not significant 51osteointegrated implant L ear 52normal 53Diverticulosis 54implant in left ear. Vital Signs Most recent to oldest [Reference Range]: 1 Height 155.8 cm (03/18/23 11:56 AM) Patient Weight 59.1 kg (03/18/23 11:56 AM) Body Mass Index 24.35 kg/m2 (03/18/23 11:56 AM) Heart Rate 60 bpm (03/18/23 11:56 AM) Respiratory Rate 20 br/min (03/18/23 11:56 AM) Blood Pressure 126/68mmHg (03/18/23 11:56 AM) Cuff Pulse Pressure 58 mmHg (03/18/23 11:56 AM) BP Location # 1 Left Arm (03/18/23 11:56 AM) Social History Social History Type Response Tobacco 1 Smoking Status Former Smoker, quit > 1 yr Sex Female 1<1PPD smoked for 25 year, quited 1998 Letter * MD Dave, Tejas Pruitt: PERFORM, MODIFY, MODIFY, MODIFY, MODIFY Event Display: Pre-OP H & P Authored Date: PRE-OPERATIVE HISTORY AND PHYSICAL Name: ALEXIS MANLEY Patient Number: [id number] : 1935 Date of Service: 03/18/2023 PRE-OP Diagnosis: History of large bowel obstruction, colon mass Planned Procedure: Diagnostic laparoscopy, robotic possible laparoscopic possible open low anteriorresection possible stoma flexible sigmoidoscopy Chief Complaint: LBO History of Present Illness (including history relevant to procedure): The patient is an 87 year old female with a history of HTN, Afib with pacer (?last echo 2020) on anticoagulation, CAD and AZ s/p stent, HTN, gout, diverticulosis, and now a near complete large bowel obstruction. Patient had been doing well until November of 2022 when she had bilateral inguinal hernia r epairs. Shortly after this she had changes in her bowel habits with initially more constipation than usual and then smaller stools until it turned into diarrhea. This was impressed on her PCP who ordered a C scope with now findings of a near complete LBO with a large mass in the sigmoid colon. Thiswas biopsied and came back so far negative [...] in appetite. No blood in the stool. Review Of Systems: _ Negative Findings Constitutional _ As per HPI HEENT _ _ Respiratory _ _ Cardiovascular _ As per HPI Gastrointestinal _ As per HPI Genitourinary _ _ Hem/Lymph _ _ Endocrine _ _ Musculoskeletal _ _ Immunologic _ _ Skin _ _ Neurologic _ _ Psychiatric _ _ Other _ _ Past Medical History: Problems: Mass of colon Vitamin D deficiency Left inguinal hernia Chronic kidney disease, stage 3a Atherosclerosis of aortic arch Atherosclerotic heart disease of [place] coronary artery with unspecified angina pectoris Personal history of melanoma in-situ Changing skin lesion S/P right hip fracture AF (atrial fibrillation) Seborrheic keratoses Inflamed seborrheic keratosis Increased MCV Balance problem Pre-diabetes 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 CT of abdomen and pelvis 03/16/2023 - 1) Extensive colonic idverticulosis. Circumferential wall thickening of the proximal to mid sigmoid colon with moderate associated inflammation. The findings could reflect acute sigmoid diverticulitis or a nonspecific colitis. Mild assoicated mesenteric lymphadenopathy. Although ths may be reacitve, an underlying colonic malignancy cannot be excluded. Small 2.2 x 1.3 cm pericolinic fluid collection. This could reflect a tiny diverticular abscess or inflamed diverticulum. No drainable fluid collection. Fluid-filled colon which indicate diarrheal state. A low-grade partial colonic obstructionrelated to the sigmoid colon process cannot be excluded. Findings will be called/faxed to the ordering provider at time of dictation. 2) 3 cm infrarenal abdominal aortic aneurysm. 3) Mild biliary ductal dilatation likely related to cholecystectomy. No suspicous hepatic lesions. CT of chest 03/16/2023 - 1) N0 definite acute process within the chest. 2) Minimal ground glass opactities with mosaic attenuation within th elungs. The findings likely reflect atelectasis although air trapping could appear similar. No consilidation to suggest pneumonia. Scattered tiny pulmonary nodules which are lkely benign. 3) Moderate cardiomegaly Colonoscopy 03/16/2023 - Likely malignant completely obstructin tumor in the sigmoid colon, biopsied, The rectum is normal Mammogram 01/17/2023 - There is no mammographic evidence of malignancy. A 1 year screening mammogram is recommended. History of hernia repair 11/2022 Shave biopsy 09/02/2022 Ultrasound abdomen ltd hernia 08/30/2022 - Small fat filled left inguinal hernia MOHS 1 STAGE T/A/L 03/04/2022 Shave biopsy 02/04/2022 - left lateral brow Mammogram - screening 01/14/2022 - There is no mammographic evidence of malignancy. A 1 year screening mammogram is recommended [id number] pt will recieve written notification of results. Bone density scan 10/22/2021 - left femur osteopenia -1.8left forearm osteopenia -2.1z-score 0.5 Echocardiogram 05/20/2021 CT of cervical spine 05/19/2021 - Impression: Severe degenerative changes with airspace disease and neural foraminal stenosis at multiple levels. No evidence of acute fracture. CT of head 05/19/2021 - Impression: No acute intracranial hemorrhage, skull fractures, or scalp swelling. Hip X-ray 05/19/2021 - Impression: Acute comminuted, angulted, impacted and displaced intertrochanteric fracture of the right femur. History of total replacement of right hip joint 05/19/2021 Hip fracture 05/19/2021 - repair Plain X-ray of right forearm 02/15/2020 - Soft tissue swelling with no acute bony abnormality identified. X-ray of wrist right 02/15/2020 - Soft tissue swelling with no acute osseous abnormality identified. A scan ultrasound right upper extremity 02/15/2020 - 1. There is no sonographic evidence of DVT identified in the RUE.2. SQ soft tissue edema with fluid and phlegmonous change is seen in the right wrist at the site of interest. No organized/drainablefluid collection is seen at this time. Mammogram - screening 01/10/2020 - There is no mammographic evidence of malignancy. A 1 year screening mammogram is recommended. DEXA - dual energy X-ray absorptiometry 07/20/2019 - AP spine L1-L3 T-score: 0.7Femur Neck Left T-score: -1.1Femur Neck Right T- score: -1.0Femur TotalMean T-score: -1.1 Left Subclavian Venography with Pacer with Atrial lead 01/02/2019 Pacemaker care 11/02/2018 - new pacemaker implanted Mammogram - screening 10/18/2018 - There is no mammographic evidence of malingnancy. A 1 year screening mammogram is recommended. Tthe patient will receive written notification of the results. Mammogram 10/17/2017 - There is no mammographic evidence of malignancy. CXR - Chest X-ray 10/15/2017 - Impression:1. No acute cardiopulmonary disease.2. Right rib fractures, which may be new since theprior exam. DEXA - Dual energy X-ray photon absorptiometry 06/16/2017 - -1.1Recommend f/u in June 2019 CT of brain 06/09/2017 - Impression: Senescent changes as above with no hemorrhage, enhancing mass, or evidence of acute territorial ischemia by Ct criteria. Cholecystectomy 02/17/2017 - final diagnosis: Gallbladder, laparoscopic cholecystectomy: acute and chronic cholecystitis. No calculi identified. - lap cholecystectomy with cholangiogram Cholangiogram 02/17/2017 - intraoperative cholangiogram:fluoroscopy provided for an intraoperative cholangiogram status postcholecystectomy. probable air bubbles seen. mild biliary ductal prominence presumably on a post operative basis. Abdomen and pelvis 02/14/2017 - Study limited d/t lack of IV and oral contrastSevere pandiverticulosisNo renal, ureteral or bladder diverticulaNo evidence of bowel obstruction. No evidence of free airStable sigmoid wall thickeningNo evidence of acute appendicitisPartial ankylosis of the right SI jointEquivocal mild diffuse pancr eatic edame. CXR - Chest X-ray 02/13/2017 - 1. Cardiomegaly and cardiac pacemaker. there is mild pulmonary vascular congestion.2. No airspaceconsolidation is seen typical for pneumonia and no large pleural effusion is identified. Ultrasound RUQ abdomen 02/13/2017 - The gallbladder is distended with associated gallbladder wall thickening and edema. Pericholecystic fluid is noted. No shadowing gallstones are identified and a sonographic Menchaca's sign is equivical. Findings are concerning for acute cholecystitis. Surgical consult is advised. Consider a nuclearhepatobiliary scan for further assessment if cholecystitis does not fit the clinical presentation. KUB X-ray 02/13/2017 - Nonobstructed abdominal bowel yenny pattern noting moderate constipation Cervical cytology brush 02/02/2017 - Negative for intraepithelial lesion or malignancy. Mammogram 10/13/2016 - Normal] Open right inguinal hernia with mesh 08/26/2016 Procedure 08/2016 - Trigger finger surgery. Cataract surgery L. eye 08/11/2016 Cataract surgery 07/21/2016 - Right cataract surgery. US - Ultrasound right groin nonvascular 06/23/2016 - Impression: Small and reducible fat-containing right inguinal hernia. there is questionable bowelwithin the hernia. Pap smear for cervical cancer screening 02/02/2016 - diagnosis: negative for intraepithelial lesion or malignancy. Doppler venous 01/06/2016 - 1. Normal study. No evidence of deep or superificial vein thrombosis in the left leg.2. No abnormality found in the contralaeral common femoral vein. X-ray right ribs 12/16/2015 - Impression: Study a bit technically suboptimal. However there are fractures seen involving the right sixth, seventh and eighth ribs. Chest x-ray 12/16/2015 - Impression: Cardiomegaly.Multiple right rib deformities.Thin linear lucency at the lateral right base likely oscar silhouetted by discoid atelectasis. Tiny basilar pneumothorax felt less likely. Surgery 11/2015 - removed cochlear implant Removal of osseointefrated implant 11/06/2015 - Removal of osseointegrated implant X-ray right shoulder 09/01/2015 - Right anterior shoulder dislocation. No fractures. X-ray 09/01/2015 - Anatomic alignment of the glenohumeral joint s/p reduction. No fx identified. Right Shoulder XRAY 08/22/2015 - Anterior dislocation right shoulder Procedure 08/22/2015 - Anatomic alignment status post closed reduction Bone density scan 10/17/2014 Mammogram 10/11/2014 - benign Procedure 10/11/2014 - Urine cytology:Benign squamous and urothelial cellsNo malignant cells seen Colonoscopy 02/13/2014 - Polapsed mucosa-not significant - diverticulosis in the entire colon Procedure 12/12/2013 - osteointegrated implant L ear Mammogram - screening 10/10/2013 - normal Colonoscopy 2007 - Diverticulosis Allergies and Sensitivities: Bactrim(Papular rash) Augmentin(Papular rash) heparin(thrombocytopenia) PCN (penicillin)(hives, passing out) Current Home Meds: (Last Updated 03/18 11:56) acetaminophen (Tylenol Extra Strength) 1,000 mg PO q6h BID prn - Doroteo De Leon 12/22 10:33 alendronate (Fosamax 70 mg oral tablet) 70 mg PO q7days with 6-8 oz plain water, at least 30 minutes before first food, beverage, or medication of the day allopurinol (allopurinol 300 mg oral tablet) 300 mg PO Daily apixaban (Eliquis 5 mg oral tablet) 5 mg PO bid aspirin (aspirin 81 mg oral delayed release tablet) 81 mg PO Daily calcium and vitamin D combination (calcium (as carbonate)-vitamin D 500 mg-400 intl units oral tablet, chewable) 1 tab PO Daily No Dosage Noted ezetimibe-simvastatin (Vytorin 10 mg-40 mg oral tablet) 1 tab PO Daily furosemide (Lasix 20 mg oral tablet) PRN: edema 1/2 tab PO Daily prn isosorbide mononitrate (isosorbide mononitrate 30 mg oral tablet, extended release) TAKE ONE TABLETBY MOUTH EVERY MORNING metoprolol (metoprolol tartrate 25 mg oral tablet) 25 mg PO bid nitroglycerin (nitroglycerin 0.4 mg sublingual tablet) Place 1 tab under the tongue every 5 minutesfor 3 doses if needed for chest pain. Call 911 if no relief! Vitals: Last Updated 03/18/23 11:56 Weights: Last Updated 03/18/23 11:56 Date Temp Pulse BP RR SpO2 FIO2 Date Wt(kg) Wt(lb) 03/18 11:56 60 126/68 20 0804 11:56 59.1 130 08/04 11:56 59.1 130 24 Hr Tmax: No Data Available Initial Wt: 03/18 59.1 kg 130 lb Physical Exam: (relevant to the procedure, including heart and lung evaluation) General: NAD Heart: No tachycardia Chest: Symmetric bilateral chest expansion, nonlabored, no wheezing Abdomen: Soft, nontender, nondistended, no rebound or guarding or masses Rectal: Deferred Extremity: spontaneously moving all extremities, WWP Neuro: affect appropriate, alert, oriented, no focal/lateralizing deficits Studies of Lab Results (relevant to the procedure): C scope, CEA, biopsy results CEA ASSESSMENT: 87 year old with near LBO with sigmoid mass Given these findings, a complex, comprehensive and [...] elected for operative intervention at this time. Full prep Stoma marking OR 03/29/23 Soft diet till then Cardiology evaluation next week if possible On the day of the encounter, I personally spent a total time of60 minutes counseling/coordinatingcare, reviewing prior medical visits and tests, obtaining history, performing a medically appropriate exam/evaluation, interpreting results, ordering medications, tests, and/or procedures and communicating to the patient and other healthcare professionals. All questions and concerns were addressed and answered as simply as possible Electronic Signature on File CC: Fco Vazquez MD [address] [facility] [id number] CC: HAROON Skinner [address] [facility] [id number] Electronically Reviewed/Signed by: Tejas Acosta MD Author Signature Dt/Tm:03/18/2023 01:57 PM Division of Colorectal Surgery [facility] Patient Care team information Care Team Personnel Name: HAROON Iqbal Tara Position: Nurse Pract - Family Med Member Role: Lifetime Relationship Address: Address: [address] [place] [phone] [place] Name: MD Vazquez Juan Position: Physician - Family Med Member Role: Primary Care Provider Address: Address: [address] [place] [address] Care Team Related Persons Name: ANDRE MANLEY Address: home [address] [facility] [place] [address] Name: ANDRE MANLEY Name: PAULIE MANLEY Address: home [address] [facility], [place] [id number]
--- OUTSIDE RECORDS SUMMARY | 2023-07-14 22:55 | External Medical Summary | Continuity of Care Document ---
Author Name Unknown Organization [facility] [address] [facility] 2 Address [address] [id number] Care Team Providers Care Rawhide Trimmer Name Role Phone Fco Vazquez Primary Care Physician [phone] Encounter [facility] [id number] Date(s): 02/16/23 - 02/16/23 [facility] [address] [id number] [place] Encounter Diagnosis History of melanoma(Discharge Diagnosis) - 02/16/23 Seborrheic keratoses(Discharge Diagnosis) - 02/16/23 ROSACEA(Discharge Diagnosis) - 02/16/23 Discharge Disposition: Home or Self Care Attending Physician: MD Marlon, Shelia Melton Referring Physician: MD Mason Sara B Allergies, Adverse Reactions, Alerts Substance Reaction Severity Status heparin thrombocytopenia Active Lasix Nausea Active Augmentin Papular rash Active Bactrim 1 Papular rash Active PCN (penicillin) hives, passing out Activ e 1Patient was taking both Augmentin and Bactrim - one of these caused a diffuse papular rash Assessment and Plan Extracted from: Title:Office Visit Note Author:MD Marlon, Aydin Melton Date:02/16/23 1.History of melanoma Warning signs of skin cancer were reviewed. Sun protection reviewed. Follow-up in 6 months, sooner for any changing or growing lesions or acute concerns. I also recommended monthly self skin exams 2.Seborrheic keratoses Chronic, within normal limits 3.ROSACEA Chronic, at goal, cont current tx Immunizations Given and Recorded Vaccine Date Status [...] Medications allopurinol 300 mg oral tablet Start: 03/03/22 15:59:00 EDT, 1 tab, PO, Daily, Disp# 90 tab, Refills: 3, Pharmacy: [facility] Start Date: 03/03/22 Status: Ordered aspirin 81 mg oral delayed release tablet Start: 11/27/20 10:28:00 EDT, 1 tab, PO, Daily Start Date: 11/27/20 Status: Ordered calcium (as carbonate)-vitamin D 500 mg-400 intl units oral tablet, chewable Start: 12/07/10 14:29:00, 1 tab, PO, Daily, tab, No Dosage Noted Start Date: 12/07/10 Status: Ordered Eliquis 5 mg oral tablet Start: 11/27/20 10:27:00 EDT, 1 tab, PO, bid Start Date: 11/27/20 Status: Ordered Fosamax 70 mg oral tablet Start: 02/17/22 17:25:00 EDT, 1 tab, PO, q7days, Disp# 15 tab, Refills: 3, with 6-8 oz plain water,at least 30 minutes before first food, beverage, or medication of the day, Pharmacy: [facility] Start Date: 02/17/22 Status: Ordered isosorbide mononitrate 30 mg oral tablet, extended release Start: 03/03/22 15:58:00 EDT, See Instructions, Disp# 90 tab, Refills: 3, TAKE ONE TABLET BY MOUTH EVERY MORNING, Pharmacy: [facility] Start Date: 03/03/22 Status: Ordered Lasix 20 mg oral tablet Start: 07/14/21 17:07:00 EST, See Instructions, Disp# 45 tab, Refills: 3, 1/2 tab PO Daily prn, PRN: edema, Pharmacy: [id number] Start Date: 07/14/21 Status: Ordered metoprolol tartrate 25 mg oral tablet Start: 03/03/22 15:58:00 EDT, 1 tab, PO, bid, Disp# 180 tab, Refills: 3, Pharmacy: [facility] Start Date: 03/03/22 Status: Ordered nitroglycerin 0.4 mg sublingual tablet Start: 11/30/21 16:00:00 EDT, See Instructions, Disp# 25 tab, Refills: 3, Place 1 tab under the tongue every 5 minutes for 3 doses if needed for chest pain. Call 911 if no relief!, Pharmacy: [id number] Start Date: 11/30/21 Status: Ordered Tylenol Extra Strength Start: 12/22/10 10:33:00, 1,000 mg =, PO, q6h Start Date: 12/22/10 Status: Ordered Vital-D Start: 02/17/22 17:23:00 EDT Start Date: 02/17/22 Status: Ordered Vytorin 10 mg-40 mg oral tablet Start: 03/03/22 15:58:00 EDT, 1 tab, PO, Daily, Disp# 90 tab, Refills: 3, Pharmacy: [facility] Start Date: 03/03/22 Status: Ordered Mental Status 02/16/23 Barriers to Learning one year None evide nt Mandatory Health Literacy Documentation Yes Health Literacy Communication Barriers N ever Primary Language Qatari Problem List Condition Confirmation Course Effective Dates Status H ealth Status Informant Angioplasty Confirmed Active Anterior dislocation of shoulder Confirmed Active Atherosclerosis of aortic arch 1 Confirmed Active AF (atrial fibrillation) Confirmed Active CAD 2, 3 Confirmed 11/09/10 Active Cardiac catheterization Confirmed Active Changing skin lesion Confirmed Active Chronic kidney disease, stage 3a 4 Confirmed Active 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 Confirmed Active DiverticulOSIS 5 Confirmed 11/09/10 Active GOUT Confirmed 11/09/10 Active 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 History of melanoma Confirmed Active S/P right hip fracture Confirmed Active Personal history of melanoma in-situ Confirmed Active HYPERTENSION Confirmed 11/09/10 Active Balance problem Confirmed Active Inflamed seborrheic keratosis Confirmed Active Left inguinal hernia Confirmed Active Increased MCV Confirmed Active Melanoma 6 Confirmed Active HI (myocardial infarction) Confirmed Active Mitral regurgitation Confirmed Active MIXED HYPERLIPIDEMIA Confirmed 11/09/10 Active MOBITZ TYPE II AV BLOCK 7 Confirmed 11/09/10 Active Otosclerosis Confirmed Active Pacemaker Confirmed Active PERSONAL HISTORY OF OTHER MALIGNANT NEOPLASM OF SKIN 8 Confirmed Active Pre-diabetes Confirmed Active Renal insufficiency 9 Confirmed Active Rosacea Confirmed Active Seborrheic keratoses Confirmed Active Senile hyperkeratosis Confirmed Active Stent, device Confirmed Active 1See outside rad/study 11/10/17 10/15/2017- CXR: Atherosclerosis of aortic arch 2s/p stent 3s/p HI and pacer. sees Dr. Springer 4See outside note 03/25/22 03/12/22 [facility], [place] [id number] Mason 7s/p pacer 8face bcc 9resolved. sees Dr. Rodrigez Diagnosis Diagnosis Type Effective Dates Health Status Clinical Service Informant Seborrheic keratoses Discharge Diagnosis 02/16/23 ROSACEA Discharge Diagnosis 02/16/23 History of melanoma Discharge Diagnosis 02/16/23 Procedures Procedure Date Related Diagnosis Body Site Status Mammogram 1 01/17/23 Completed History of hernia repair 11/2022 Completed Shave biopsy 09/02/22 Completed Ultrasound abdomen ltd hernia 2 08/30/22 Completed MOHS 1 STAGE T/A/L 03/04/22 Comple gordon Shave biopsy 3 02/04/22 Completed Mammogram - screening 4 01/14/22 C ompleted Bone density scan 5 10/22/21 Compl eted Echocardiogram 05/20/[address] of cervical spine 6 05/19/[address] of head 7 05/19/21 Completed Hip fracture 8 05/19/21 Completed Hip X-ray 9 05/19/21 Completed History of total replacement of right hip joint 05/19/21 Completed A scan ultrasound right uppe r extremity 10 02/15/20 Completed Plain X-ray of right forearm 11 02/15/20 Completed X-ray of wrist right 12 02/15/20 C ompleted Mammogram - screening 13 01/10/20 Completed DEXA - dual energy X-ray absorptiometry 14 07/20/19 Completed Left Subclavian Venography w ith Pacer with Atrial lead 01/02/19 Completed Pacemaker care 15 11/02/18 Complet ed Mammogram - screening 16 10/18/18 Completed Mammogram 17 10/17/17 Completed CXR - Chest X-ray 18 10/15/17 Comp leted DEXA - Dual energy X-ray cece ton absorptiometry 19 06/16/[address] of brain 20 06/09/17 Completed Cholangiogram 21 02/17/17 Complete d Cholecystectomy 22, 23 02/17/17 Co mpleted Abdomen and pelvis 24 02/14/17 Com pleted CXR - Chest X-ray 25 02/13/17 Comp leted KUB X-ray 26 02/13/17 Completed Ultrasound RUQ abdomen 27 02/13/17 Completed Cervical cytology brush 28 02/02/17 Completed Mammogram 29 10/13/16 Completed Open right inguinal hernia with mesh 08/26/16 Completed Procedure 30 08/2016 Completed Cataract surgery L. eye 08/11/16 C ompleted Cataract surgery 31 07/21/16 Compl eted US - Ultrasound right groin nonvascular 32 06/23/16 Completed Pap smear for cervical cance r screening 33 02/02/16 Completed Doppler venous 34 01/06/16 Complet ed Chest x-ray 35 12/16/15 Completed X-ray right ribs 36 12/16/15 Compl eted Surgery 37 11/2015 Completed Removal of osseointefrated implant 38 11/06/15 Completed X-ray 39 09/01/15 Completed X-ray right shoulder 40 09/01/15 C ompleted Procedure 41 08/22/15 Completed Right Shoulder XRAY 42 08/22/15 Co mpleted Bone density scan 10/17/14 Complet ed Mammogram 43 10/11/14 Completed Procedure 44 10/11/14 Completed Colonoscopy 45, 46 02/13/14 Comple gordon Procedure 47 12/12/13 Completed Mammogram - screening 48 10/10/13 Completed Colonoscopy 49 2007 Completed Angioplasty Completed melenoma--left face Compl eted Pacemaker Completed Procedure 50 Completed 1There is no mammographic evidence of malignancy. A 1 year screening mammogram is recommended. 2Small fat filled left inguinal hernia 3left lateral brow 4There is no mammographic evidence of malignancy. A 1 year screening mammogram is recommended 01-15-2023 The pt will recieve written notification of results. 5left femur osteopenia -1.8 left forearm osteopenia -2.1 z-score 0.5 6Impression: Severe degenerative changes with airspace disease and neural foraminal stenosis at multiple levels. No evidence of acute fracture. 7Impression: No acute intracranial hemorrhage, skull fractures, or scalp swelling. 8repair 9Impression: Acute comminuted, angulted, impacted and displaced intertrochanteric fracture of the right femur. 101. There is no sonographic evidence of DVT identified in the RUE. 2. SQ soft tissue edema with fluid and phlegmonous change is seen in the right wrist at the site ofinterest. No organized/drainable fluid collection is seen at this time. 11Soft tissue swelling with no acute bony abnormality identified. 12Soft tissue swelling with no acute osseous abnormality identified. 13There is no mammographic evidence of malignancy. A 1 year screening mammogram is recommended. 14AP spine L1-L3 T-score: 0.7 Femur Neck Left T-score: -1.1 Femur Neck Right T-score: -1.0 Femur Total Mean T-score: -1.1 15new pacemaker implanted 16There is no mammographic evidence of malingnancy. A 1 year screening mammogram is recommended. Tthepatient will receive written notification of the results. 17There is no mammographic evidence of malignancy. 18Impression: 1. No acute cardiopulmonary disease. 2. Right rib fractures, which may be new since the prior exam. 19-1.1 Recommend f/u in June 2019 20Impression: Senescent changes as above with no hemorrhage, enhancing mass, or evidence of acute territorial ischemia by Ct criteria. 21intraoperative cholangiogram: fluoroscopy provided for an intraoperative cholangiogram status post cholecystectomy. probable air bubbles seen. mild biliary ductal prominence presumably on a post operative basis. 22lap cholecystectomy with cholangiogram 23final diagnosis: Gallbladder, laparoscopic cholecystectomy: acute and chronic cholecystitis. No calculi identified. 24Study limited d/t lack of IV and oral contrast Severe pandiverticulosis No renal, ureteral or bladder diverticula No evidence of bowel obstruction. No evidence of free air Stable sigmoid wall thickening No evidence of acute appendicitis Partial ankylosis of the right SI joint Equivocal mild diffuse pancreatic edame. 251. Cardiomegaly and cardiac pacemaker. there is mild pulmonary vascular congestion. 2. No airspace consolidation is seen typical for pneumonia and no large pleural effusion is identified. 26Nonobstructed abdominal bowel yenny pattern noting moderate constipation 27The gallbladder is distended with associated gallbladder wall thickening and edema. Pericholecysticfluid is noted. No shadowing gallstones are identified and a sonographic Menchaca's sign is equivical. Findings are concerning for acute cholecystitis. Surgical consult is advised. Consider a nuclear hepatobiliary scan for further assessment if cholecystitis does not fit the clinical presentation. 28Negative for intraepithelial lesion or malignancy. 29Normal ] 30Trigger finger surgery. 31Right cataract surgery. 32Impression: Small and reducible fat-containing right inguinal hernia. there is questionable bowel within the hernia. 33diagnosis: negative for intraepithelial lesion or malignancy. 341. Normal study. No evidence of deep or superificial vein thrombosis in the left leg. 2. No abnormality found in the contralaeral common femoral vein. 35Impression: Cardiomegaly. Multiple right rib deformities. Thin linear lucency at the lateral right base likely oscar silhouetted by discoid atelectasis. Tiny basilar pneumothorax felt less likely. 36Impression: Study a bit technically suboptimal. However there are fractures seen involving the right sixth, seventh and eighth ribs. 37removed cochlear implant 38Removal of osseointegrated implant 39Anatomic alignment of the glenohumeral joint s/p reduction. No fx identified. 40Right anterior shoulder dislocation. No fractures. 41Anatomic alignment status post closed reduction 42Anterior dislocation right shoulder 43benign 44Urine cytology: Benign squamous and urothelial cells No malignant cells seen 45diverticulosis in the entire colon 46Polapsed mucosa-not significant 47osteointegrated implant L ear 48normal 49Diverticulosis 50implant in left ear. Social History Social History Type Response Tobacco 1 Smoking Status Former Smoker, quit > 1 yr Sex Female 1<1PPD smoked for 25 year, quited 1998 Dermatology Outpatient Note * MD Marlon, Shelia Melton: PERFORM Event Display: Dermatology Outpt Note Authored Date: [id number] Chief Complaint Annual skin check. Hx MM. No concerns. History of Present Illness The patient is a pleasant 87-year-old female. 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 Rdz in summer 2021. Had ajunctional dysplastic moderately atypical right 2022 ROS: 12 point review of systems conducted. Positive arthritis, occ balance issues, using walker.More abd pain lately- is having it worked up, calling her PMD today. Negative for uncontrolled nausea or vomiting/ dizziness/ vision changes/ speech or swallowing problems/ new cough/ SOB/ diarrhea/ new or concerning moles/ night sweats/ fevers/ chills/ malaise/ swollen lymph nodes.Lostabout 20 pounds in 2years, most when she brokeher hip, PMS is aware. Fax Hx: neg for melanoma Physical Exam Gen: Well appearing patient, no acute distress. Alert and oriented x3. Good mood. Skin examination completed of face, eyelids, scalp, hair, lips, ears, neck, chest, back, abdomen,upper and lower extremities bilaterally including hands, feet, fingers and toes, fingernails and toenails, pt declined buttocks and groin. 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 Scattered less than 6mm in diameter well circumscribed round brown macular nevi within normal limits under dermoscopy. Scattered flesh colored to brown greasy keratotic plaques consistent with seborrheic keratoses. No evidence recurrent skin cancer. No neck, supraclavicular, posterior occipital, axillary or inguinal lymphadenopathy. No hepatosplenomegaly. Assessment/Plan 1.History of melanoma Warning signs of skin cancer were reviewed. Sun protection reviewed. Follow-up in 6 months, sooner for any changing or growing lesions or acute concerns. I also recommended monthly self skin exams 2.Seborrheic keratoses Chronic, within normal limits 3.ROSACEA Chronic, at goal, cont current tx Problem List/Past Medical History Ongoing AF (atrial fibrillation) Angioplasty Anterior dislocation of shoulder Atherosclerosis of aortic arch 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 Balance problem CAD Cardiac catheterization Changing skin lesion Chronic kidney disease, stage 3a Colonoscopy DiverticulOSIS GOUT History of melanoma HYPERTENSION Increased MCV Inflamed seborrheic keratosis Left inguinal hernia Melanoma HI (myocardial infarction) Mitral regurgitation MIXED HYPERLIPIDEMIA MOBITZ TYPE II AV BLOCK Otosclerosis Pacemaker Personal history of melanoma in-situ PERSONAL HISTORY OF OTHER MALIGNANT NEOPLASM OF SKIN Pre-diabetes Renal insufficiency Rosacea S/P right hip fracture Seborrheic keratoses Senile hyperkeratosis Stent, device 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 Biceps tendonitis on right Edema Hip fracture, right Inguinal hernia Instability of right shoulder joint OSTEOPOROSIS Right rotator cuff tear Shoulder pain Tear of right glenoid labrum Thrombocytopenia Torn rotator cuff UNSPECIFIED DISEASES OF BLOOD AND BLOOD-FORMING ORGANS Procedure/Surgical History Mammogram (01/17/2023)History of hernia repair (11/2022)Shave biopsy (09/02/2022)Ultrasound abdomen ltd hernia (08/30/2022)MOHS 1 STAGE T/A/L (03/04/2022)Shave biopsy (02/04/2022)Mammogram - screening (01/14/2022)Bone density scan (10/22/2021)Echocardiogram (05/20/2021) Hip fracture (05/19/2021)History of total replacement of right hip joint (05/19/2021)Hip X-ray (05/19/2021)CT of head (05/19/2021)CT of cervical spine (05/19/2021)A scan ultrasound right upper extremity (02/15/2020)X- ray of wrist right (02/15/2020)Plain X-ray of right forearm (0 02/15/2020)Mammogram - screening (01/10/2020)DEXA - dual energy X-ray absorptiometry (07/20/2019)Left Subclavian Venography with Pacer with Atrial lead (01/02/2019)Pacemaker care (11/02/2018)Mammogram - screening (10/18/2018)Mammogram (10/17/2017)CXR - Chest X-ray (10/15/2017)DEXA - Dual energy X-ray photon absorptiometry (06/16/2017)CT of brain (06/09/2017)Cholangiogram (02/17/2017)Cholecystectomy (02/17/2017)Abdomen and pelvis (02/14/2017)KUB X-ray (2016)Ultrasound RUQ abdomen (02/13/2017)CXR - Chest X-ray (02/13/2017)Cervical cytology brush (02/02/2017)Mammogram (10/13/2016)Open right inguinal hernia with mesh (08/26/2016)Procedure (08/2016)Cataract surgery L. eye (08/11/2016)Cataract surgery (07/21/2016)US - Ultrasound right groin nonvascular (06/23/2016)Pap smear for cervical cancer screening (02/02/2016)Doppler venous (01/06/2016)Chest x-ray (12/16/2015)X-ray right ribs (12/16/2015)Surgery (11/14)Removal of osseointefrated implant (11/06/2015)X-ray (09/01/2015)X- ray right shoulder (09/01/2015)Procedure (08/22/2015)Right Shoulder XRAY (08/22/2015)Bone density scan (10/17/2014)Procedure (10/11/2014)Mammogram (10/11/2014)Colonoscopy (02/13/2014)Procedure (12/12/2013)Mammogram - screening (10/10/2013)Colonoscopy (2007)ProcedurePacemakermelenoma--left faceAngioplasty Medications acetaminophen(Tylenol Extra Strength), 1000 mg, PO, q6h alendronate(Fosamax 70 mg oral tablet), 70 mg= 1 tab, PO, q7days, 3 refills allopurinol(allopurinol 300 mg oral tablet), 300 mg= 1 tab, PO, Daily, 3 refills apixaban(Eliquis 5 mg oral tablet), 5 mg= 1 tab, PO, bid aspirin(aspirin 81 mg oral delayed release tablet), 81 mg= 1 tab, PO, Daily calcium and vitamin D combination(calcium (as carbonate)-vitamin D 500 mg-400 intl units oral tablet, chewable), 1 tab, PO, Daily ezetimibe-simvastatin(Vytorin 10 mg-40 mg oral tablet), 1 tab, PO, Daily, 3 refills furosemide(Lasix 20 mg oral tablet), See Instructions, PRN, 3 refills isosorbide mononitrate(isosorbide mononitrate 30 mg oral tablet, extended release), See Instructions, 3 refills metoprolol(metoprolol tartrate 25 mg oral tablet), 25 mg= 1 tab, PO, bid, 3 refills multivitamin with minerals(Vital-D) nitroglycerin(nitroglycerin 0.4 mg sublingual tablet), See Instructions, 3 refills Allergies AugmentinPapular rash BactrimPapular rash LasixNausea PCN (penicillin)hives, passing out heparinthrombocytopenia Social History [...] Falls Plan of Care due08/13/22and every 1year Due Adult Influenza Vaccine due02/12/23and every 1year Adult COVID-19 Vaccination due02/16/23Unknown Frequency Due In Future Body Mass Index not due until08/26/23and every 1year Medicare Annual Wellness Visit not due until08/26/23and every 1year Satisfied(in the past 1 year) Satisfied Body Mass Index on08/26/22.Satisfied by ADAN Okeefe Kimbra J Medicare Annual Wellness Visit on08/26/22.Satisfied by MD Vazquez Juan Electronic Signature on File CC: Fco Vazquez MD [address] [place] [id number] Electronically Reviewed/Signed by: Shelia Mason MD Author Signature Dt/Tm:02/16/2023 12:04 PM Department of Dermatology [facility] Patient Care team information Care Team Personnel Name: MD Vazquez Juan Position: Physician - Family Med Member Role: Primary Care Provider Address: Address: [address] [place] [address], [address] Care Team Related Persons Name: ANDRE MANLEY Address: home [address] [place] [address] Name: ANDRE MANLEY Name: PAULIE MANLEY Address: home [address] [facility], [place] [id number]
--- OUTSIDE RECORDS SUMMARY | 2023-07-14 22:55 | External Medical Summary | Continuity of Care Document ---
Author Name Unknown Organization [place] [id number] [facility] A Address [address], [place] [id number] Care Team Providers Care Manager Search Engine Name Role Phone Fco Vazquez Primary Care Physician [phone] [phone] Date(s): 02/23/23 - 02/23/23 [facility] [address] [facility] [place] [place] [address] [phone] Encounter Diagnosis Change in stool(Discharge Diagnosis) - 02/23/23 On anticoagulant therapy(Discharge Diagnosis) - 02/23/23 Discharge Disposition: Home or Self Care Attending Physician: HAROON Iqbal Tara Allergies, Adverse Reactions, Alerts Substance Reaction Severity Status heparin thrombocytopenia Active Lasix Nausea Active Augmentin Papular rash Active Bactrim 1 Papular rash Active PCN (penicillin) hives, passing out Activ e 1Patient was taking both Augmentin and Bactrim - one of these caused a diffuse papular rash Assessment and Plan Extracted from: Title:bowel issues Author:HAROON Iqbal Tara Date :02/23/23 1.Change in stool 2.On anticoagulant therapy Acute/Chronic: chronic Goal:Resolution/ control Status:stable/controlled Data: records/pt report Plan:Due to changes in her stoolsand possiblyseeing blood in her stools along with being on Eliquis for anticoagulation therapy, ahead and order a colonoscopy. She has not had one for several years also check a CBC, CMP and also a celiac. If she develops worsening symptoms she is post does not go to the emergency department. time spent reviewing chart, face to face visit, ordersand documentation: 31 min Immunizations Given and Recorded Vaccine Date Status [...] Daily, Disp# 90 tab, Refills: 3, Pharmacy: [facility] Start Date: 02/23/23 Status: Ordered aspirin 81 mg oral delayed release tablet Start: 02/23/23 19:18:00 EDT, 1 tab, PO, Daily, Disp# 90 tab, Refills: 3, Pharmacy: [facility] Start Date: 02/23/23 Status: Ordered calcium [...] beverage, or medication of the day, Pharmacy: [facility] Start Date: 02/23/23 Status: Ordered isosorbide mononitrate 30 mg oral tablet, extended release Start: 02/23/23 19:18:00 EDT, See Instructions, Disp# 90 tab, Refills: 3, TAKE ONE TABLET BY MOUTH EVERY MORNING, Pharmacy: [facility] Start Date: 02/23/23 Status: Ordered Lasix 20 mg oral tablet Start: 07/14/21 17:07:00 EST, See Instructions, Disp# 45 tab, Refills: 3, 1/2 tab PO Daily prn, PRN: edema, Pharmacy: [id number] Start Date: 07/14/21 Status: Ordered metoprolol tartrate 25 mg oral tablet Start: 02/23/23 19:18:00 EDT, 1 tab, PO, bid, Disp# 180 tab, Refills: 3, Pharmacy: [facility] Start Date: 02/23/23 Status: Ordered nitroglycerin 0.4 mg sublingual tablet Start: 02/23/23 19:18:00 EDT, See Instructions, Disp# 25 tab, Refills: 3, Place 1 tab under the tongue every 5 minutes for 3 doses if needed for chest pain. Call 911 if no relief!, Pharmacy: [facility] Start Date: 02/23/23 Status: Ordered Tylenol Extra Strength Start: 12/22/10 10:33:00, 1,000 mg =, PO, q6h Start Date: 12/22/10 Status: Ordered Vytorin 10 mg-40 mg oral tablet Start: 02/23/23 19:18:00 EDT, 1 tab, PO, Daily, Disp# 90 tab, Refills: 3, Pharmacy: [facility] Start Date: 02/23/23 Status: Ordered Mental Status 02/23/23 Barriers to Learning one year None evide nt Mandatory Health Literacy Documentation Yes Health Literacy Communication Barriers N ever Primary Language Korean Problem List Condition Confirmation Course Effective Dates Status H ealt Status Informant Angioplasty Confirmed Active Anterior dislocation of shoulder Confirmed Active Atherosclerosis of aortic arch 1 Confirmed Active AF (atrial fibrillation) Confirmed Active CAD 2, 3 Confirmed 11/09/10 Active Cardiac catheterization Confirmed Active Changing skin lesion Confirmed Active Chronic kidney disease, stage 3a 4 Confirmed Active Atherosclerotic heart disease of [place] coronary artery with unspecified angina pectoris [...] MCV Confirmed Active Melanoma 6 Confirmed Active DC (myocardial infarction) Confirmed Active Mitral regurgitation Confirmed [...] Atherosclerosis of aortic arch 2s/p stent 3s/p DC and pacer. sees Dr. Springer 4See outside note 03/25/22 03/12/22 [facility], [place] [id number] Mason 7s/p pacer 8face bcc [address]resolved. sees Dr. Rodrigez Diagnosis Diagnosis Type Effective Dates Health Status Clinical Service Informant Change in stool Discharge Diagnosis 02/23/23 On anticoagulant therapy Discharge Diagnosis 02/23/23 Procedures Procedure Date Related Diagnosis Body Site [...] ear 48normal 49Diverticulosis 50implant in left ear. Vital Signs Most recent to oldest [Reference Range]: 1 Height 155.8 cm (02/23/23 11:36 AM) Patient Weight 58.7 kg (02/23/23 11:36 AM) Body Mass Index 24.18 kg/m2 (02/23/23 11:36 AM) Heart Rate 58 bpm (02/23/23 11:36 AM) Respiratory Rate 18 br/min (02/23/23 11:36 AM) Blood Pressure 126/60mmHg (02/23/23 11:36 AM) Cuff Pulse Pressure 66 mmHg (02/23/23 11:36 AM) Social History Social History Type Response Tobacco 1 Smoking Status Former Smoker, quit > 1 yr Sex Female 1<1PPD smoked for 25 year, quited 1998 [facility] Outpt Note * HAROON Iqbal Tara: PERFORM Event Display: [facility] Outpt Note Authored Date: Chief Complaint having issues with bowels over the last few months. hasn't had formed stools; some pink "stringiness" noted on stool at times. increased gas that causes leakage. lower abd pain off and on thelast week History of Present Illness Assessment the patient has been a change in her stools. She has noted that her stools are [place]6-7. She is unsure if there may have been blood in her stools. She has lostseveral pounds unintentionally. She is reports that she is having gasand some abdominal discomfort associated withit. She denies any changes in her diet orany foods that make her symptoms. She denies any newmedications or supplements. She has not had anyrecent antibiotic use. Review of Systems Constitutional: No fever, chills, sweats Cardiac: no chest pain, palpitations, edema Pulmonary: No shortness of breath, dyspnea with exertion, cough, hemoptysis, wheezing, chest pain. GI: As per HPI Physical Exam Vitals & Measurements HR:58(Monitored) RR:18 BP:126/60 SpO2:97% HT:155.8cm WT:58.7kg WT:58.700kg(Dosing) BMI:24.18 PHQ2 Data(Data Documented on:02/23/2023 11:36) Emotional health assessment NEGATIVE head- normocephalic Pulmonary- chest expansion symmetric, CTA (clear to auscultation), eupnea, no adventitious sounds (rales, crackles, wheezes) CV (cardiovascular)- RRR no m/r/g (systolic ejection murmur, rubs, gallops), good peripheral perfusion abdomen- soft non-tender w/o masses, BS present, no hepatosplenomegaly, no bruits Neuro:Alert, Oriented Assessment/Plan 1.Change in stool 2.On anticoagulant therapy Acute/Chronic: chronic Goal:Resolution/ control Status:stable/controlled Data: records/pt report Plan:Due to changes in her stoolsand possiblyseeing blood in her stools along with being on Eliquis for anticoagulation therapy, ahead and order a colonoscopy. She has not had one for severalyears also check a CBC, CMP and also a celiac. If she develops worsening symptoms she is post does not go to the emergency department. 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 Balance problem CAD Cardiac catheterization Changing skin lesion Chronic kidney disease, stage 3a Colonoscopy DiverticulOSIS GOUT History of melanoma HYPERTENSION Increased MCV Inflamed seborrheic keratosis Left inguinal hernia Melanoma DC (myocardial infarction) Mitral regurgitation MIXED HYPERLIPIDEMIA MOBITZ [...] tablet), 5 mg= 1 tab, PO, bid calcium and vitamin D combination(calcium (as carbonate)-vitamin [...] mg= 1 tab, PO, bid, 3 refills nitroglycerin(nitroglycerin 0.4 mg sublingual tablet), See Instructions, [...] Vaccine due02/12/23and every 1year Adult COVID-19 Vaccination due02/23/23Unknown Frequency Due In Future Medicare Annual Wellness Visit not due until08/26/23and every 1year Body Mass Index not due until02/23/24and every 1year Satisfied(in the past 1 year) Satisfied Body Mass Index on02/23/23.Satisfied by ADAN Bosch Bobbi Medicare Annual Wellness Visit on08/26/22.Satisfied by MD Vazquez Juan Electronic Signature on File Electronically Reviewed/Signed by: HAROON Grant Author Signature Dt/Tm:02/23/2023 01:12 PM Department of Family Medicine TB Patient Care team information Care Team Personnel Name: MD Vazquez Juan Position: Physician - Family Med Member Role: Primary Care Provider Address: Address: [address] [place] [address], [place] [address] [place] Care Team Related Persons Name: ANDRE MANLEY Address: home [address] [place] [address] Name: ANDRE MANLEY Name: PAULIE MANLEY Address: home [address] [place], [place] [id number]
--- OUTSIDE RECORDS SUMMARY | 2023-07-14 22:55 | External Medical Summary | Continuity of Care Document ---
Author Name Unknown Organization [facility] [address] [facility] [[email or web address]] A Address [address] [place], [place] [id number] Care Team Providers Care Set Up Mold Technician Name Role Phone Fco Vazquez Primary Care Physician [phone] [id number] Date(s): 03/17/23 - 03/17/23 [facility] [address] [facility] [address] [place] [address] [phone] Encounter Diagnosis Body mass index [BMI] 24.0-24.9, adult(Discharge Diagnosis) - 03/17/23 Mass of colon(Discharge Diagnosis) - 03/17/23 Discharge Disposition: Home or Self Care Attending Physician: HAROON Key Janet Griffith Referring Physician: HAROON Key Janet Griffith Allergies, Adverse Reactions, Alerts Substance Reaction Severity Status heparin thrombocytopenia Active Augmentin Papular rash Active Bactrim 1 Papular rash Active PCN (penicillin) hives, passing out Activ e 1Patient was taking both Augmentin and Bactrim - one of these caused a diffuse papular rash Assessment and Plan Extracted from: Title:Office Visit Note Author:HAROON Key Janet Griffith Date:03/17/23 1.Mass of colon The patient is a pleasant 87-year-old female who presents in the office today with her sonfor follow-up evaluation of recent colonoscopydemonstrating obstructing sigmoid mass. 1. Sigmoid colon mass: Colonoscopy performed by Dr. Mcgraw 03/16/2023 demonstratedobstructingsigmoid colon mass Pathology pending at time of office visit CTabdomen, pelvis, chestobtained with findings as outlinedin HPIand notable for extensivecolonic diverticulosis, 3 cmabdominal aortic aneurysm,and mild associated mesenteric lymphadenopathy. CTchest demonstrate demonstratingminimal groundglass opacitieswith mosaic attenuation in the lungs andscattered tiny pulmonary nodules. Moderatecardiomegaly. CEA level 2.0 level 2.0 Plan at this time the plan at this time is to refer to colorectal surgery. I have. I have spoken with Dr. Glynn will see the patient in his clinic in [facility] All questions were answered at time of office visit 2. GI office visit follow-up as needed Immunizations Given and Recorded Vaccine Date Status [...] Daily, Disp# 90 tab, Refills: 3, Pharmacy: [facility] Start Date: 02/23/23 Status: Ordered aspirin 81 mg oral delayed release tablet Start: 02/23/23 19:18:00 EDT, 1 tab, PO, Daily, Disp# 90 tab, Refills: 3, Pharmacy: [facility] Start Date: 02/23/23 Status: Ordered [...] beverage, or medication of the day, Pharmacy: [facility] Start Date: 02/23/23 Status: Ordered isosorbide mononitrate 30 mg oral tablet, extended release Start: 02/23/23 19:18:00 EDT, See Instructions, Disp# 90 tab, Refills: 3, TAKE ONE TABLET BY MOUTH EVERY MORNING, Pharmacy: [facility] Start Date: 02/23/23 Status: Ordered Lasix 20 mg oral tablet Start: 07/14/21 17:07:00 EST, See Instructions, Disp# 45 tab, Refills: 3, 1/2 tab PO Daily prn, PRN: edema, Pharmacy: [id number] Start Date: 07/14/21 Status: Ordered metoprolol tartrate 25 mg oral tablet Start: 02/23/23 19:18:00 EDT, 1 tab, PO, bid, Disp# 180 tab, Refills: 3, Pharmacy: [facility] Start Date: 02/23/23 Status: Ordered nitroglycerin 0.4 mg sublingual tablet Start: 02/23/23 19:18:00 EDT, See Instructions, Disp# 25 tab, Refills: 3, Place 1 tab under the tongue every 5 minutes for 3 doses if needed for chest pain. Call 911 if no relief!, Pharmacy: [facility] Start Date: 02/23/23 Status: Ordered Tylenol Extra Strength Start: 12/22/10 10:33:00, 1,000 mg =, PO, q6h Start Date: 12/22/10 Status: Ordered Vytorin 10 mg-40 mg oral tablet Start: 02/23/23 19:18:00 EDT, 1 tab, PO, Daily, Disp# 90 tab, Refills: 3, Pharmacy: [facility] Start Date: 02/23/23 Status: Ordered Mental Status 03/17/23 Barriers to Learning one year None evide nt Mandatory Health Literacy Documentation Yes Communication Barrier Present No Health Literacy Communication Barriers N ever Primary Language Latvian Problem List Condition Confirmation Course Effective Dates Status H ealth Status Informant Angioplasty Confirmed Active Anterior dislocation of shoulder Confirmed Active Atherosclerosis of aortic arch 1 Confirmed Active AF (atrial fibrillation) Confirmed Active CAD 2, 3 Confirmed 11/09/10 Active Cardiac catheterization Confirmed Active Changing skin lesion Confirmed Active Chronic kidney disease, stage 3a 4 Confirmed Active 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 sees Dr. Springer 4See outside note 03/25/22 03/12/22 [facility], [place] [id number] Mason 7s/p pacer 8face [facility] [address] Rodrigez Diagnosis Diagnosis Type Effective Dates Health Status Cl inical Service Informant Body mass index [BMI] 24.0-24.9, adult Discharge Diagnosis 03/17/23 Non-Specified Mass of colon Discharge Diagnosis 03/17/23 Procedures Procedure Date Related Diagnosis Body Site [...] oldest [Reference Range]: 1 Height 155.8 cm (03/17/23 1:17 PM) Patient Weight 59.1 kg (03/17/23 1:17 PM) Body Mass Index 24.35 kg/m2 (03/17/23 1:17 PM) Heart Rate 60 bpm (03/17/23 1:17 PM) Respiratory Rate 16 br/min (03/17/23 1:17 PM) Blood Pressure 124/70mmHg (03/17/23 1:17 PM) Cuff Pulse Pressure 54 mmHg (03/17/23 1:17 PM) BP Location # 1 Left Arm (03/17/23 1:17 PM) Social History Social History Type Response Tobacco 1 Smoking Status Former Smoker, quit > 1 yr Sex Female 1<1PPD smoked for 25 year, quited 1998 Gastroenterology Outpatient Note * HAROON Key Janet Griffith: PERFORM Event Display: Gastroenterology Outpt Note Authored Date: [id number] Chief Complaint New pt here for f/u to CT scan and labs for near obstructing colon mass History of Present Illness The patient is a pleasant 26-tauu-aeqgdlmgohyn presents today forfollow-up evaluation ofobstructing sigmoid mass on colonoscopy.[facility],and past medical historyreviewed. Abdominal surgical history: Cholecystectomy, bilateral inguinal hernia repair Prior records: 02/13/2014: Colonoscopy notes are reviewed due to abnormal CT abnormal CT of the GI tract which demonstrated multiple small and large mouth diverticula and large mouth diverticula found in the entire colon largemouth diverticula found in the entire colon. Sessile polyp found in the sigmoid colon 4 mm millimeters in size and removed. A sessile polyp found in the sigmoid colon measuring 5 mm in size and removed. Pathology result demonstrated colonic mucosa with prolapse type changes negative for negative for adenomatous epithelium 02/23/2023: [facility] office visit notes are reviewed for patient with complaints of changes in her stoolsincluding Republic type -VII, possibly blood, with a several pound weight loss. Laboratory testing was obtained and colonoscopy ordered for further evaluation. 03/16/2023: Colonoscopy notes are reviewed performed due to history of clinically significant diarrhea of unexplained origin demonstrated a fungating completely obstructing medium-sized mass found in the sigmoid colon. The mass was circumferential. There was no bleeding present. Biopsies were obtained for histology. Recommend CT imaging of abdomen, pelvis, chest. Pathology is pending at time of OV. 03/16/2023: CT abdomen and pelvis with p.o. and IV contrast was obtained due to obstructing sigmoid mass demonstrated 1. Extensive colonic diverticulosis. Circumferential wall thickening of the proximal to mid sigmoid colon with moderate associated inflammation. The findings could reflect acute sigmoid diverticulitis or a nonspecific colitis. Mild associated mesenteric lymphadenopathy. Although this may be reactive, an underlying colonic malignancy cannot be excluded. Small 2.2 x 1.3 cm pericolonic fluid collection. This could reflect a tiny diverticular abscess or inflamed diverticulum. No drainable fluid collection. Fluid-filled colon which could indicate a diarrheal state. A low- grade partial colonic obstruction related to the sigmoid colon process cannot be excluded. Findings will be called/faxed to the ordering provider at time of dictation. 2. 3 cm infrarenal abdominal aortic aneurysm. 3. Mild biliary ductal dilatation likely related to cholecystectomy. No suspicious hepatic lesions. 03/16/2023: CT of the chest with IV contrast was obtained due to obstructive sigmoid mass demonstrated 1. No definite acute process within the chest. 2. Minimal ground glass opacities with mosaic attenuation within the lungs. The findings likely reflect atelectasis although air trapping could appear similar. No consolidation to suggest pneumonia. Scattered tiny pulmonary nodules which are likely benign. 3. Moderate cardiomegaly. 03/16/2023: CEA level 2.0 03/17/2023 GI OV:The patient presents today with her sonfor follow-up evaluation of colonoscopy. We did discuss findings of colonoscopy, CT imaging, and laboratory testing. She reports that following colonoscopy,she was notvery clear on her diagnosisand she was glad to have appointment today. She denies any specific fever, chills, night sweats. She has had approximately a 10 to12 pound weight loss over the last few months. She denies anyGERD symptoms, nausea, vomiting. She is on 81 mg aspirin daily as well as Eliquis due to history of A-fib. She follows with Dr. Springer in cardiology. She denies nausea and vomiting. She has had a decreased appetite but does continue to eatregular foods. She does have some bilateral lower abdominal discomfort worse on the left side than the right. She believes she has seen some pink streaks in her stool but stools havebeen very dark recently. Denies specific melena. She does report diarrhea stool outputand hasbeen ongoing for some time. Social history: The patient is a former smoker. She smokedapproximately 1/4 pack of cigarettes for approximately 30 years. She quit smoking in 1998. She consumes 1 glass of alcohol approximately 1-2 times per month. She denies recreational drug use including marijuana. 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 She is with 5 adult childrenand multiple grandchildren and great-grandchildren. Family history: Deniesfamilyhistory of colorectal cancer, liver disease, IBD, IBS, pancreatic disease, celiac disease No further complaints or concerns today. Physical Exam Vitals & Measurements HR:60(Monitored) RR:16 BP:124/70 HT:155.8cm WT:59.1kg WT:59.100kg(Dosing) BMI:24.35 General:Alert and oriented, No acute distress, appears stated age,wears corrective lenses, useswheeled walker for ambulation,_ HENT:Normocephalic, hard of hearing Respiratory:Lungs are clear to auscultation, respirations are non-labored Cardiovascular:Regularrate,No edema Gastrointestinal:Soft, non-distended, normal bowel sounds, no palpable organomegaly.Nontenderwith_abdominal palpation.Normalpercussion. Integumentary:Exposed skin viewable is dry and intact Psychiatric:Cooperative, appropriate mood & affect, Normal judgement Assessment/Plan 1.Mass of colon The patient is a pleasant 87-year-old female who presents in the office today with her sonfor follow-up evaluation of recent colonoscopydemonstrating obstructing sigmoid mass. 1. Sigmoid colon mass: Colonoscopy performed by Dr. Mcgraw 03/16/2023 demonstratedobstructingsigmoid colon mass Pathology pending at time of office visit CTabdomen, pelvis, chestobtained with findings as outlinedin HPIand notable for extensivecolonic diverticulosis, 3 cmabdominal aortic aneurysm,and mild associated mesenteric lymphadenopathy. CTchest demonstrate demonstratingminimal groundglass opacitieswith mosaic attenuat ion in the lungs andscattered tiny pulmonary nodules. Moderatecardiomegaly. CEA level 2.0 level 2.0 Plan at this time the plan at this time is to refer to colorectal surgery. I have. I have spoken with Dr. Glynn [facility] All questions were answered at time of office visit 2. 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 Balance problem CAD Cardiac catheterization Changing skin lesion Chronic kidney disease, stage 3a DiverticulOSIS GOUT History of melanoma HYPERTENSION Increased MCV Inflamed seborrheic keratosis Left inguinal hernia Mass of colon Melanoma MO (myocardial infarction) Mitral regurgitation MIXED HYPERLIPIDEMIA MOBITZ [...] BLOOD AND BLOOD-FORMING ORGANS Procedure/Surgical History CT of chest (03/16/2023)CT of abdomen and pelvis (03/16/2023)Mammogram (01/17/2023)History of hernia repair (11/2022)Shave biopsy (09/02/2022)Ultrasound abdomen ltd hernia (08/30/2022)MOHS 1 STAGE T/A/L (03/04/2022)Shave biopsy (02/04/2022)Mammogram - screening (01/14/2022 )Bone density scan (10/22/2021)Echocardiogram (05/20/2021)Hip fracture (05/19/2021)History of total replacement of right hip joint (05/19/2021)Hip X-ray (05/19/2021)CT of head (05/19/2021)CT of cervical spine (05/19/2021)A scan ultrasound right upper extremity (02/15/2020)X- ray of wrist right (02/15/2020)Plain X-ray of right forearm (02/15/2020)Mammogram - screening (01/10/2020)DEXA - dual energy X-ray absorptiometry (07/20/2019)Left Subclavian Venography with Pacer with Atrial lead (01/02/2019)Pacemaker care (11/02/2018)Mammogram - screening (10/18)Mammogram (10/17/2017)CXR - Chest X-ray (10/15/2017)DEXA - Dual energy X-ray photon absorptiometry (06/16/2017)CT of brain (06/09/2017)Cholangiogram (02/17/2017)Cholecystectomy (02/17/2017)Abdomen and pelvis (02/14/2017)KUB X-ray (02/13/2017)Ultrasound RUQ abdomen (02/13/2017)CXR - Chest X-ray (02/13/2017)Cervical cytology brush (02/02/2017)Mammogram (08/2016)Open right inguinal hernia with mesh (08/26/2016)Procedure (08/2016)Cataract surgery L. eye (08/11/2016)Cataract surgery (07/21/2016)US - Ultrasound right groin nonvascular (06/23/2016)Pap smear for cervical cancer screening (02/02/2016)Doppler venous (01/06/2016)Chest x-ray (12/16/2015)X-ray right ribs (12/16/2015)Surgery (11/2015)Removal of osseointefrated implant (11/06/2015)X-ray (09/01/2015)X-ray right shoulder (09/01/2015)Procedure (08/22/19 16)Right Shoulder XRAY (08/22/2015)Bone density scan (10/17/2014)Procedure (10/11/2014)Mammogram [...] 3 refills Allergies AugmentinPapular rash BactrimPapular rash PCN (penicillin)hives, [...] due02/12/23and every 1year Due Adult COVID-19 Vaccination due03/17/23Unknown Frequency Due In Future Medicare Annual Wellness Visit not due until08/26/23and every 1year Body Mass Index not due until03/16/24and every 1year Satisfied(in the past 1 year) Satisfied Body Mass Index on03/17/23.Satisfied by ADAN Marcus Erin Medicare Annual Wellness Visit on08/26/22.Satisfied by MD Vazquez Juan Electronic Signature on File CC: Fco Vazquez MD [address] [facility] [id number] Electronically Reviewed/Signed by: HAROON Skinner Author Signature Dt/Tm:03/17/2023 01:56 PM Division of Gastroenterology [facility] Patient Care team information Care Team Personnel Name: HAROON Iqbal Tara Position: Nurse Pract - Family Med Member Role: Lifetime Relationship Address: Address: [address] [place] [id number] Name: MD Vazquez Juan Position: Physician - Family Med Member Role: Primary Care Provider Address: Address: [address] [place] [id number] [place] Care Team Related Persons Name: ANDRE MANLEY Address: home [address] [place] [address] Name: ANDRE MANLEY Name: PAULIE MANLEY Address: home [address] [place], [place] [id number]
--- OUTSIDE RECORDS SUMMARY | 2023-07-14 22:55 | External Medical Summary | Continuity of Care Document ---
Author Name Unknown Organization [facility] [address] [place] [address] MIKA PLASCENCIA [id number] Care Team Providers Care Ticket Counter Name Role Phone Avril Vazquezan Primary Care Physician [phone] Encounter [facility] [id number] Date(s): 03/24/23 - 03/24/23 [facility] [address] [facility] [address], [address], [address] MIKA Rowley [address] Encounter Diagnosis Body mass index [BMI] 25.0-25.9, adult(Discharge Diagnosis) - 03/24/23 Pre-operative exam(Discharge Diagnosis) - 03/24/23 Discharge Disposition: Home or Self Care Attending Physician: MD Fox Selina N Referring Physician: MD Dave, Tejas Pruitt Allergies, Adverse [...] Daily, Disp# 90 tab, Refills: 3, Pharmacy: [facility] Start Date: 02/23/23 Status: Ordered aspirin 81 mg oral delayed release tablet Start: 02/23/23 19:18:00 EDT, 1 tab, PO, Daily, Disp# 90 tab, Refills: 3, Pharmacy: [facility] Start Date: 02/23/23 Status: Ordered calcium [...] beverage, or medication of the day, Pharmacy: [facility] Start Date: 02/23/23 Status: Ordered isosorbide mononitrate 30 mg oral tablet, extended release Start: 02/23/23 19:18:00 EDT, See Instructions, Disp# 90 tab, Refills: 3, TAKE ONE TABLET BY MOUTH EVERY MORNING, Pharmacy: [facility] Start Date: 02/23/23 Status: Ordered Lasix 20 mg oral tablet Start: 07/14/21 17:07:00 EST, See Instructions, Disp# 45 tab, Refills: 3, 1/2 tab PO Daily prn, PRN: edema, Pharmacy: [id number] Start Date: 07/14/21 Status: Ordered metoprolol tartrate 25 mg oral tablet Start: 02/23/23 19:18:00 EDT, 1 tab, PO, bid, Disp# 180 tab, Refills: 3, Pharmacy: [facility] Start Date: 02/23/23 Status: Ordered metroNIDAZOLE 500 mg oral tablet Start: 03/23/23 12:06:00 EDT, See Instructions, Disp# 3 tab, Refills: 0, Take 1 tab PO at 5, 6 and 11 PM the evening before surgery, Stop: 03/28/23 23:00:00 EDT, Pharmacy: [facility] Start Date: 03/23/23 Stop Date: 03/28/23 Status: Ordered nitroglycerin 0.4 mg sublingual tablet Start: 02/23/23 19:18:00 EDT, See Instructions, Disp# 25 tab, Refills: 3, Place 1 tab under the tongue every 5 minutes for 3 doses if needed for chest pain. Call 911 if no relief!, Pharmacy: [facility] Start Date: 02/23/23 Status: Ordered Tylenol Extra Strength Start: 12/22/10 10:33:00, 1,000 mg =, PO, q6h Start Date: 12/22/10 Status: Ordered Vytorin 10 mg-40 mg oral tablet Start: 02/23/23 19:18:00 EDT, 1 tab, PO, Daily, Disp# 90 tab, Refills: 3, Pharmacy: [facility] Start Date: 02/23/23 Status: Ordered Mental Status 03/24/23 Barriers to Learning one year None evide nt Mandatory Health Literacy Documentation Yes Health Literacy Communication Barriers N ever Primary Language Swedish Problem List Condition Confirmation Course Effective Dates Status H ealth Status Informant Angioplasty Confirmed Active Anterior dislocation of shoulder Confirmed Active Atherosclerosis of aortic arch 1 Confirmed Active AF (atrial fibrillation) Confirmed Active CAD 2, 3 Confirmed 11/09/10 Active Cardiac catheterization Confirmed Active Changing skin lesion Confirmed Active Chronic kidney disease, stage 3a 4 Confirmed Active Atherosclerotic heart disease of [place] coronary artery with unspecified angina pectoris Confirmed [...] colon Confirmed Active Melanoma 6 Confirmed Active TN (myocardial infarction) Confirmed Active Mitral regurgitation Confirmed [...] Atherosclerosis of aortic arch 2s/p stent 3s/p TN and pacer. sees Dr. Springer 4See outside note 03/25/22 03/12/22 [facility], [place] [id number] Mason 7s/p pacer 8face bcc 9resolved. sees Dr. Rodrigez Diagnosis Diagnosis Type Effective Dates Health Status Cl inical Service Informant Body mass index [BMI] 25.0-25.9, adult Discharge Diagnosis 03/24/23 Non-Specified Pre-operative exam Discharge Diagnosis 03/24/23 Non-Specified Procedures Procedure Date Related Diagnosis Body [...] significant 51implant in left ear. 52normal 53Diverticulosis Vital Signs Most recent to oldest [Reference Range]: 1 2 Height 155 cm (03/24/23 9:57 AM) Patient Weight 60.9 kg (03/24/23 9:57 AM) Body Mass Index 25.35 kg/m2 (03/24/23 9:57 AM) Temperature [36.5-37.9 DegC] 36.5 DegC (03/24/23 9:57 AM) Heart Rate 60 bpm (03/24/23 9:57 AM) Respiratory Rate 28 br/min (03/24/23 9:57 AM) Blood Pressure 164/78mmHg (03/24/23 10:44 AM) 162/84mmHg (03/24/23 9:57 AM) Mean Blood Pressure 101 mmHg (03/24/23 9:57 AM) Cuff Pulse Pressure 78 mmHg (03/24/23 9:57 AM) BP Location # 1 Right Arm (03/24/23 10:44 AM) Left Arm (03/24/23 9:57 AM) Social History Social History Type Response Tobacco 1 Smoking Status Former Smoker, quit > 1 yr Sex Female 1<1PPD smoked for 25 year, quited 1998 Radiology * Contributor_system, MUSE01: VERIFY, PERFORM Event Display: EKG Authored Date: [id number] Please click on link to see image. Anes H&P * MD Dominique, Prema Agosto: SIGN MD Fox Selina N: SIGN, VERIFY Read, MD, Prema N: VERIFY, SIGN Thrush, PA-C, Neville: SIGN, MODIFY Thrush, PA-C, Neville: MODIFY, PERFORM Thrush, PA-C, Neville: PERFORM, MODIFY Thrush, PA-C, Neville: MODIFY, SIGN Thrush, PA-C, Neville: SIGN, MODIFY Thrush, PA-C, Neville: MODIFY, SIGN Thrush, PA-C, Neville: SIGN Susannah, DO, Deo: MODIFY, SIGN Susannah, DO, Deo: SIGN Event Display: Anes H&P Authored Date: [id number] Patient: ALEXIS MANLEY Age: 87 years Sex: Female : 1935 Associated Diagnoses: None Author: PINA Fine Daniel Preoperative Information Anesthesia Preop Info: Procedure: Diagnostic laparoscopy, robotic possible laparoscopic possible open low anterior resection possible stoma flex sigmoidoscopy Date: 03/29/23 12:50 Surgeons: MD Dave, Tejas Pruitt Diagnosis: Obstructing colon mass . History of Present Illness See above. COVID vaccinated + boosted Anesthesia History PONV: Denies. History of Motion Sickness: Denies. Patient Complications: Negative. Family History of Anesthesia Problems: Negative. Functional Capacity 1-3 METS = Poor: Walks slowly, With walker. Symptoms: Denies SOB/CP. Medical History Cardiovascular: F/b Cardiology from different facility ([facility] - last visit 12/17/22 (note located in Outside Note dated 01/21/23). Pt reports that she has a pre-op appointment with her esthetician/skin therapist 03/25/23 at 9:00am), Records requested. Hypertension: Beta Remington. CAD: h/o TN 1998, Cardiac Intervention ( S/P Stent (type unknown) (1998), On antiplatelet therapy ). Dysrhythmia: A-fib, Paroxysmal, + beta remington, Eliquis, Pacemaker. Medical Devices: Pacemaker (Medtronic), See [employer]hoc form for pacemaker clinic recommendations. Renal: CKD, Stage III, f/b outside nephrology, last visit 02/21/23. Note located in Outside Note dated 03/08/23: baseline Cr 0.8, GFR 65 - "stable". Health Status Allergies: Allergic Reactions (Selected) Severity Not Documented Augmentin- Papular rash. Bactrim- Papular rash. Heparin- Thrombocytopenia. PCN (penicillin)- Hives, passing out.. Histories Procedure History: Colonoscopy ([id number]) on 03/16/2023 at 87 Years. 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 Negative for malignancy. 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 Comments: 01/18/2023 17:08 CANDIDAT - ADAN York, Analilia There is no mammographic evidence of malignancy. A 1 year screening mammogram is recommended. History of hernia repair ([id number]) in the month of 11/2022 at 87 Years. Shave biopsy ([id number]) on 09/02/2022 at 86 Years. MOHS 1 STAGE T/A/L ([id number]) on 03/04/2022 at 86 Years. Shave biopsy ([id number]) on 02/04/2022 at 86 Years. Comments: 02/04/2022 13:59 CANDIDAT - ADAN Mcmullen Carolyn left lateral brow Hip fracture ([id number]) on 05/19/2021 at 85 Years. Comments: 02/04/2022 13:26 EDT - ADAN Clark Norah J repair Left Subclavian Venography with Pacer with Atrial lead ([id number]) on 01/02/2019 at 83 Years. Pacemaker care ([id number]) on 11/02/2018 at 82 Years. Comments: 06/04/2019 12:52 CANDIDAT - ADAN Mcmullen Carolyn new pacemaker implanted Cholecystectomy ([id number]) on 02/17/2017 at 81 Years. Comments: 02/24/2017 13:39 CANDIDAT - ADAN Okeefe Kimbra J final diagnosis: Gallbladder, laparoscopic cholecystectomy: acute and chronic cholecystitis. No calculi identified. 02/17/2017 16:18 ALESSANDRA Carrillo RN, Alwildera lap cholecystectomy with cholangiogram Open right inguinal hernia with mesh ([id number]) on 08/26/2016 at 80 Years. Procedure ([id number]) in the month of 08/2016 at 80 Years. Comments: 09/27/2016 13:37 ARGELIA Grijalva LPN, Brenda Trigger finger surgery. Cataract surgery L. eye ([id number]) on 08/11/2016 at 80 Years. Cataract surgery ([id number]) on 07/21/2016 at 80 Years. Comments: 07/21/2016 08:43 ARGELIA Grijalva LPN, Brenda Right cataract surgery. Pap smear for cervical cancer screening ([id number]) on 02/02/2016 at 80 Years. Comments: 02/09/2016 17:25 ALESSANDRA Okeefe LPN, Kimbra J diagnosis: negative for intraepithelial lesion or malignancy. Surgery ([id number]) in the month of 11/2015 at 79 Years. Comments: 07/01/2016 13:35 ARGELIA Hall LPN, Shelly L removed cochlear implant Removal of osseointefrated implant ([id number]) on 11/06/2015 at 79 Years. Comments: 11/07/2015 11:17 Amita Reese Removal of osseointegrated implant Right Shoulder XRAY ([id number]) on 08/22/2015 at 79 Years. Comments: 08/25/2015 09:53 ARGELIA Medina LPN, Mayerling L Anterior dislocation right shoulder Procedure ([id number]) on 08/22/2015 at 79 Years. Comments: 08/25/2015 09:54 ARGELIA Medina LPN, Mayerling L Anatomic alignment status post closed reduction Procedure ([id number]) on 10/11/2014 at 78 Years. Comments: 10/17/2014 14:44 Mayra Thompson Urine cytology: Benign squamous and urothelial cells No malignant cells seen Colonoscopy ([id number]) on 02/13/2014 at 78 Years. Comments: 02/20/2014 15:53 ALESSANDRA Medina LPN, Mayerling L Polapsed mucosa-not significant 02/14/2014 14:43 EDT - ADAN Rivas Jackie L diverticulosis in the entire colon Procedure ([id number]) on 12/12/2013 at 78 Years. Comments: 12/13/2013 14:32 EDT - Riddhi Rivas osteointegrated implant L ear Colonoscopy ([id number]) in 2007 at 72 Years. Comments: 09/07/2012 17:15 EST - Galina Sloan Diverticulosis Angioplasty ([id number]). melenoma--left face. Pacemaker ([id number]). Procedure ([id number]). Comments: 01/30/2014 09:12 EDT - ADAN Cerda, Anitha implant in left ear. . 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 Former Smoker, quit > 1 yr; quit 1998 Other Tobacco Use: Never used other tobacco products Alcohol Frequency: Socially Alcohol Type: Wine Recreational Drugs: Denies . Physical Examination VS/Measurements: 03/24/2023 09:57 Temp: 36.5 Pulse: 60 BP: 162/84; 164/78 on manual recheck after exam MAP: 101 RR: 28 SPO2: 96 FIO2: Wt(kg): 60.9 BMI: 25 Height(cm): 155 . General: Alert, Oriented. Airway: Mallampati classification: II (soft palate, fauces, uvula visible). Hyomental Distance: 30-40mm. Mouth: Within normal limits. Teeth: Within normal limits. Head: Normocephalic. Neck: Good extension, Good flexion. Trachea: Midline. Respiratory: CTA bilaterally. Cardiovascular: Heart: RRR, No murmurs. Musculoskeletal: Normal strength. Neurologic: No focal deficits. Assessment and Plan Medications: Pre-Surgery Medication Instructions Please bring this list with you the morning of surgery and note the date and time of the last dose taken of each medication before surgery. acetaminophen (Tylenol Extra Strength) 1,000 mg by mouth every 6 hours . may use if needed alendronate (Fosamax 70 mg oral tablet) 1 tab by mouth Every 7 days .with 6-8 oz plain water, at least 30 minutes before first food, beverage, or medication of the day do not take morning of procedure allopurinol (allopurinol 300 mg oral tablet) 1 tab by mouth once daily . continue as usual apixaban (Eliquis 5 mg oral tablet) 1 tab by mouth 2 times daily . take your last dose the evening on 03/26/23 aspirin (aspirin 81 mg oral delayed release tablet) 1 tab by mouth once daily . continue as usual calcium-vitamin D (calcium (as carbonate)-vitamin D 500 mg-400 intl units oral tablet, chewable) 1 tab by mouth once daily .No Dosage Noted do not take morning of procedure ezetimibe-simvastatin (Vytorin 10 mg-40 mg oral tablet) 1 tab by mouth once daily . continue as usual furosemide (Lasix 20 mg oral tablet) See Instructions as needed for edema .1/2 tab PO Dailyprn do not take morning of procedure isosorbide mononitrate (isosorbide mononitrate 30 mg oral tablet, extended release) See Instructions .TAKE ONE TABLET BY MOUTH EVERY MORNING continue as usual metoprolol (metoprolol tartrate 25 mg oral tablet) 1 tab by mouth 2 times daily . You MUST take this medication like normal the morning of surgery if it is a morning medication. metroNIDAZOLE (metroNIDAZOLE 500 mg oral tablet) See Instructions .Take 1 tab PO at 5, 6 and 11 PM the evening before surgery follow surgeon's instructions nitroglycerin (nitroglycerin 0.4 mg sublingual tablet) See Instructions .Place 1 tab under the tongue every 5 minutes for 3 doses if needed for chest pain. Call 911 if no relief! may use if needed . Does patient use aspirin?: Yes. Does patient use beta blockers?: Yes. Does patient use BILL- I/ARB drugs?: No. Does patient use narcotic analgesics for chronic pain? (>1 month AND >30mg morphine or equivalent daily): No. Anesthesiologist Assessment and Plan Problems: No previous anesthetic complications, No a/w concerns. Cardiac risk factors: CAD. Risk of major adverse cardiac event (Revised Cardiac Risk Index): 1 = 0.9%. Cardiovascular risk associated with the procedure: Low (<1%). ASA Classification: Class III. Anesthetic Plan: Anesthetic technique discussed: General anesthesia. Airway plan discussed: Oral endotracheal tube. Risks discussed: Nausea-vomiting, Headache, Sore throat, Dental injury, Eye injury, Allergic reaction, Serious complications. Review / Management Ordered Today: Pacemaker Clinic consulted today. EK03/24/23 ECG: junctional rhythm 60 bpm. Diagnostics: 02/21/23 [facility] note: . Orders placed for day of surgery: None. Records requested from outside facility: Cardiology. Pending issues: None. Patient Education [facility] Electronic Signature on File Electronically Reviewed/Signed by: Neville Fine PA-C Author Signature Dt/Tm:03/24/2023 10:47 AM Department of Anesthesia Electronically Reviewed/Signed by: PINA Taverasigner Signature Dt/Tm: 03/24/2023 10:54 AM Department of Anesthesia Electronically Reviewed/Signed by: Deo Davalos DO Cosigner Signature Dt/Tm: 03/24/2023 10:57 AM Resident Department of Anesthesia Electronically Reviewed/Signed by: MD Shaniqua Gatica Signature Dt/Tm: 03/24/2023 12:35 PM Department of Anesthesia DT * PINA Fine Daniel: PERFORM Event Display: Anes H&P Authored Date: [id number] 03/25/23 [facility] [place] Cardiology note: Electronic Signature on File Electronically Reviewed/Signed by: Neville Fine PA-C Author Signature Dt/Tm:03/25/2023 11:02 AM Department of Anesthesia Electronically Reviewed/Signed by: Prema Fox MD Department of Anesthesia DT Patient Care team information Care Team Personnel Name: HAROON Iqbal Tara Position: Nurse Pract - Family Med Member Role: Lifetime Relationship Address: Address: [address] [place] [address] Name: MD Vazquez Juan Position: Physician - Family Med Member Role: Primary Care Provider Address: Address: [address] [place] [address] Care Team Related Persons Name: ANDRE MANLEY Address: home [address] [place] [address] Name: ANDRE MANLEY Name: PAULIE MANLEY Address: home [address] [place], [place] [id number]
[2023-07-15 07:23] LABS: Hematocrit (blood only) 32.7 % (37.0-47.0); Hemoglobin 10.5 g/dl (12.0-16.0); Mean Corpuscular Hemoglobin 28.8 pg (25.0-34.0); Mean Corpuscular Hgb Conc 32.1 g/dL (32.0-36.0); Mean Corpuscular Volume 89.6 fL (80.0-100.0); Mean Platelet Volume 10.6 fL (9.4-12.4); Platelet Count 159 K/uL (130-400); RDW Coefficient of Variation 14.4 % (11.5-14.5); RDW Standard Deviation 46.5 fL (36.4-46.3); Red Blood Count 3.65 M/uL (4.20-5.40); White Blood Count 4.89 K/ul (4.8-10.8)
--- NOTE | 2023-07-15 08:11 | Billing Data ---
Date of Service July 14, 2023 Coding Level of Care Code 37322 INT INP/OBS CARE
[2023-07-15] MEDS: METOPROLOL SUCC 50MG EXT REL TAB PO SCH (08:16)
[2023-07-15] MEDS: allopurinoL 300 MG TAB PO SCH (08:16)
[2023-07-15] MEDS: ASPIRIN 81 MG CHEW PO SCH (08:16)
[2023-07-15] MEDS: EMPAGLIFLOZIN 10 MG TAB PO SCH (08:17)
[2023-07-15] MEDS: APIXABAN 5 MG TABLET PO SCH ×2 (08:17→20:53)
[2023-07-15] MEDS: CALCIUM 600MG + VIT D 400 IU TAB PO SCH ×2 (08:17→20:53)
[2023-07-15] MEDS: FUROSEMIDE 40 MG/4 ML VIAL IV SCH (08:18)
[2023-07-15 08:20] LABS: INR 1.2 (0.9-1.1); Prothrombin Time 12.8 Seconds (9.0-12.0)
[2023-07-15 08:23] LABS: Albumin Globulin Ratio 0.9 (0.9-2); Albumin Level 2.5 gm/dl (3.4-5.0); BUN Creatinine Ratio 18.2 (10-20); Bilirubin,Total 0.6 mg/dl (0.2-1.0); Calcium 9.3 mg/dl (8.6-10.3); Creatinine Clr Calc Pharmacy 32.3 ml/min; Est GFR (African American) 59.8 ml/min; Est GFR (Non-African American) 51.6 ml/min; Globulin 2.8 gm/dl (2.5-4.0); Magnesium 1.7 mg/dl (1.7-2.4); Phosphorus 3.6 mg/dl (2.5-4.9); Potassium 3.8 mmol/L (3.5-5.1); Total Protein 5.3 gm/dl (6.0-8.3)
[2023-07-15] MEDS ORDERED: INFLUENZA VACCINE HIGH-DOSE (HD-IIV4) PF 65+ 0.7mL SYR IM ONE (09:00)
--- NOTE | 2023-07-15 10:03 | Cardiology Consultation ---
Date of Consultation July 15, 2023 Assessment & Plan (1) Syncope and collapse: -2 episodes within the last week. -etiology uncertain. -Dr. Felipe to check her pacemaker later today. (2) Acute exacerbation of CHF (congestive heart failure): -seems to be mainly right-sided CHF. -agree with intravenous Lasix. -continue metoprolol succinate and Jardiance. -consider addition of Entresto. -echocardiogram pending. (3) Ischemic cardiomyopathy: -continue medical management as described above. -echocardiogram pending. (4) CAD (coronary artery disease): -s/p anterior SD in April 1999. -LAD stent at time of SD. -known apical aneurysm. (5) Cardiac pacemaker: -DDD pacemaker placed in August 1999, sinus arrest. -will be interrogated later today. History of Present Illness Attending Physician: Ambika Rahman MD History of Present Illness Mrs. Mata an 87-year-old female admitted yesterday with acute chronic CHF and 2 recent syncopal events. This consultation was ordered to assist in her cardiac management. Of note, patient is well known to me from the outpatient setting. The patient was in her state of health until approximately 2 weeks prior to presentation. She began to note progressive lower extremity edema. Approximately 1 week prior to presentation, the patient experienced an episode of syncope. She had just gotten off the commode and was standing at the bathroom sink. The next thing she knew she was on the floor. Her neck/jaw must have struck the sink as she had large area of ecchymosis. Two days prior to presentation, she had a recurrent episode of syncope which also occurred after standing up from the commode. She had no premorbid or post morbid vagal symptoms. She was scheduled to have a pacemaker interrogation in the office today. The patient is follow-up in our CHF clinic. She does follow daily weights at home. She noticed a recent weight gain from 118 up to 123 lb just prior to her hospitalization. She is careful to follow a low-salt diet. She had an echocardiogram performed back in March during a hospitalization for iatrogenic CHF. Her ejection fraction was 45-50% with an apical wall motion abnormality. Currently, patient is resting comfortably in bed without complaints. She does note improvement in her lower extremity edema. Past medical and surgical history 1. Coronary artery disease 2. Anterior SD-April 1999 3. Lad stent-April 1999 4. Ischemic fyxcloohbbldyo-47-28% 5. Apical aneurysm 6. Paroxysmal atrial fibrillation 7. DDD pacemaker-sinus arrest, August 1999 8. Hypertension 9. Hypercholesterolemia 10. Chronic renal failure 11. Peripheral vascular disease 12. Gout 13. Hearing deficit 14. Malignant melanoma 15. Sigmoid resection-March 2023 16. Cholecystectomy 17. Left inguinal hernia repair 18. Cochlear implant 19. Bilateral intra-ocular lens implants Social history , lives alone Quit tobacco use in 1998 Social alcohol Family history Noncontributory Review of systems A 10 point review systems was undertaken and negative except that described above. Allergies Allergy/AdvReac Type Severity Reaction Status Date / Time heparin Allergy Severe Thrombocytopenia; Verified 07/14/23 17:20 NEUTROPENIA Penicillins Allergy Intermediate Hives; Verified 07/14/23 17:20 SYNCOPE Home Medications Medication Instructions Recorded Confirmed Type ezetimibe 10 mg-simvastatin 40 mg 1 tab PO PM ##0 09/19/06 07/14/23 History tablet (Vytorin) nitroglycerin 0.4 mg sublingual 0.4 mg sublingual UD PRN Chest 04/05/13 07/14/23 History tablet (Nitrostat) Pain #0 BTLS allopurinol 300 mg tablet 300 mg PO QAM ##90 02/13/17 07/14/23 History aspirin 81 mg chewable tablet 81 mg PO QAM 04/22/21 07/14/23 History isosorbide mononitrate 30 mg 30 mg PO QAM 05/19/21 07/14/23 History tablet,extended release 24 hr calcium carbonate 500 mg-vitamin 1 tab PO BID 09/11/21 07/14/23 History D3 10 mcg (400 unit) tablet (Calcium 500 + D) alendronate 70 mg tablet (Fosamax) 70 mg PO WK 05/03/22 07/14/23 History apixaban 5 mg tablet 5 mg PO BID #180 tabs 10/06/22 07/14/23 Rx acetaminophen 500 mg tablet 500 mg PO QID PRN Pain 11/10/22 07/14/23 History (Tylenol Extra Strength) empagliflozin 10 mg tablet 10 mg PO DAILY #90 tabs 05/13/23 07/14/23 Rx (Jardiance) metoprolol succinate 50 mg 50 mg PO QAM #30 tabs 05/13/23 07/14/23 Rx tablet,extended release 24 hr furosemide 20 mg tablet 20 mg PO QAM PRN SWELLING 07/14/23 07/14/23 History Patient History Medical History CAD (coronary artery disease) Chronic kidney disease, stage 3 Gout Hearing deficit History of pelvic mass Hx of pancreatitis Hypercholesterolemia Hyperlipidemia Hypertension Loose stools Malignant melanoma of skin Old myocardial infarct Osteopenia Pacemaker Paroxysmal atrial fibrillation Peripheral vascular disease Surgical History History of cataract surgery History of cholecystectomy History of cochlear implant History of heart artery stent History of herniorrhaphy Hx laparoscopic cholecystectomy (11/18/22) S/P cardiac pacemaker procedure S/P left inguinal hernia repair (11/18/22) S/P ORIF (open reduction internal fixation) fracture S/P trigger finger release Family History Family/Other Hearing loss Father Heart disease Mother Cancer Other No family history of adverse response to anesthesia No family history of bleeding disorder Denies family history of Ovarian cancer Chronic kidney disease Breast cancer Colorectal cancer Social History Smoking Status: Never smoker Age Started Using Tobacco: 43; Age Quit Using Tobacco: 63; packs per day: 0.5; Cigarettes Per Day: quit 1998; Second Hand Exposure: Yes (hx); Do You Dip or Chew Tobacco: No; Hx Alcohol Use: Yes Alcohol type: wine Alcohol Intake Frequency: Monthly or Less Hx Substance Use: No Preferred Language: Azeri Communication Ability: Effective Visual Impairment: No Limitations Survey Coordinator Required: No Beliefs That Will Affect Care: Bahai Bahai Beliefs: Church marital status: / Current Living Situation: Family Current Living Situation Comment: sons How many Children do You have: 5 Other Information That Helps Us Care for You: No Feels Safe at Home: Yes Safety Concerns: Feels Safe At This Time Diet: regular during the past year weight has: decreased > 10 lbs Assistive Devices: Cane, Glasses, Hearing Aid - Bilateral and Walker Physical Exam Physical Exam: In general is a well-developed well-nourished white female no acute distress. HEENT exam is negative. Neck is supple with full carotid upstrokes. There are no carotid bruits. Jugular is pressure is flat at 90. An ecchymosis is noted across the right neck. Cardiovascular exam reveals a regular rhythm with a normal S1 and S2. A 1/6 basal systolic ejection murmurs noted. No S3. Lungs are clear without rales, rhonchi or wheezes. Chest reveals a palpable pacemaker in left subclavicular region. Abdomen is soft and nontender without bruits. Extremities reveal 1+ pretibial edema to the knees bilaterally. There are bandages across both pretibial regions. Results & Data Vital Signs (Past 12 Hours) Vital Signs Temp Pulse Pulse Resp BP BP Pulse Ox 07/15/23 08:15 60 07/15/23 08:13 36.3 C L 86 18 112/72 99 07/15/23 03:26 36.3 C L 63 18 112/70 94 07/14/23 22:18 97 07/14/23 22:18 36.5 C 74 20 118/74 93 O2 Del Method 07/15/23 08:15 07/15/23 08:13 Room Air 07/15/23 03:26 Room Air 07/14/23 22:18 Room Air 07/14/23 22:18 Room Air Laboratory Results CBC notes hemoglobin 10.5, hematocrit 32.7, white count 4.89, and platelet count [id number]. Electrolytes note a sodium of 137, potassium 3.8, chloride 96, bicarb 41, BUN 18, creatinine 0.99, and glucose of 87. High sensitivity troponin on presentation was 25 with follow-up values of 28 and 24.4. BNP was elevated 926. TSH is normal 1.9. Diagnostic Findings EKG notes ventricular pacing. Chest x-ray notes cardiomegaly and a pacer in the left subclavicular region. No evidence of interstitial edema. PG Care Time/CCT Total # of Minutes Spent Total Time Spent with Patient: Total time spent is greater than 50% in coordination of care (as documented) at patient's floor/unit and/or counseling patient: Coding Level of Care Code 13507 INT INP/OBS CARE 3/75MIN Diagnoses Syncope and collapse R55 Acute exacerbation of CHF (congestive heart failure) I50.9 Ischemic cardiomyopathy I25.5 CAD (coronary artery disease) I25.10 Cardiac pacemaker Z95.0
--- NOTE | 2023-07-15 14:29 | Electrocardiogram Report ---
Test Reason : Blood Pressure : / mmHG Vent. Rate : 120 BPM Atrial Rate : 000 BPM P-R Int : 000 ms QRS Dur : 138 ms QT Int : 272 ms P-R-T Axes : 000 -61 138 degrees QTc Int : 384 ms Atrial fibrillation with rapid ventricular response with frequent ventricular-paced complexes and wit h premature ventricular or aberrantly conducted complexes Left axis deviation Abnormal ECG When compared with ECG of 07-APR-2023 17:31, Sinus rhythm is no longer with 2nd degree A-V block (Mobitz I) Vent. rate has increased BY 32 BPM Confirmed by Gonzalez Felipe ([id number]) on 07/15/2023 2:29:14 PM Referred By: Confirmed By:Jamison Felipe
--- NOTE | 2023-07-15 15:24 | Hospitalist Progress Note ---
Date of Service July 15, 2023 Assessment & Plan (1) Acute exacerbation of CHF (congestive heart failure): Plan: -Acute on chronic Patient does not have any orthopnea, PND, dyspnea on exertion no crackles at the bases and chest x-ray was negative Most likely has right heart failure Continue with IV Lasix 40 mg daily for now Continue metoprolol, Jardiance Echocardiogram ordered, pending. Last echo 04/06 showed EF 40%, apical thrombus Cardiology on board (2) Syncope and collapse: Plan: - 2 events of Syncope with LOC without prodrome symptoms -Unknown etiology by hx seem cardiac etiology -Orthostatic V/S unremarkable -Echo ordered -Cardiology consulted and will interrogate pacemaker -CMP, mag CBC am (3) Bilateral edema of lower extremity: Plan: -Due to CHF exacerbation, likely right heart failure -Continue IV lasix Hold isosorbide mononitrate for now See above (4) Paroxysmal atrial fibrillation: Plan: -Continue metoprolol and Eliquis 5 mg BID -Continue monitoring (5) CAD (coronary artery disease): Plan: -stable -Denied any chest pain Continue aspirin Hold isosorbide mononitrate for now (6) Mobitz type II block: Plan: - Sinus Bradycardia/Mobitz Type 2 Second-Degree AV Block s/p Dual Chamber Pacemaker -Continue monitor (7) Elevated troponin: Plan: -Mild elevation -No acute changes on ECG - Likely due to demand of CHF exacerbation (8) Hypomagnesemia: Plan: Acute Mag 1.3 Mag replaced 1 gram now Follow AM Mag (9) Ischemic cardiomyopathy: Plan: Suspected ischemic Continue metoprolol and Jardiance (10) Acute on chronic systolic congestive heart failure: Plan: please see problem #1 (11) Demand ischemia: Plan: please see problem #7 Plan Code Status: DNR/DNI DVT prophylaxes: Eliquis 5 mg BID Diet: HH/ low salt/ fluid restriction Disposition: PCU/ Telemetry Admission and Anticipated Discharge Date Admission Date: July 14, 2023 Subjective patient says that she has been urinating a lot on the IV Lasix. Her leg swelling seems to be improving. Review of Systems Review of Systems: All systems reviewed & are unremarkable except as noted in Subjective Physical Exam Physical Exam: general: Awake, conversant Heart: S1, S2/regular rate and rhythm, no murmur rubs or gallops Lungs: Clear to auscultation bilaterally. Normal effort Abdomen: Soft/nontender/nondistended. No hepatosplenomegaly Extremities: No clubbing/cyanosis. 2+ pitting bilateral edema Behavior: Appropriate, cooperative Results & Data Results & Data Vital Signs (Past 12 Hours) Vital Signs Temp Pulse Pulse Resp BP Pulse Ox O2 Del Method 07/15/23 15:08 60 07/15/23 14:42 36.4 C L 66 18 117/71 98 Room Air 07/15/23 11:51 36.5 C 61 18 110/68 95 Room Air 07/15/23 08:15 60 07/15/23 08:13 36.3 C L 86 18 112/72 99 Room Air 07/15/23 03:26 36.3 C L 63 18 112/70 94 Room Air Laboratory Results Abnormal lab results 07/14/23 07/14/23 07/15/23 Range/Units 15:17 21:26 00:14 RBC 3.73 L (4.20-5.40) M/uL Hgb 10.7 L (12.0-16.0) g/dl Hct 32.8 L (37.0-47.0) % RDW Std Deviation (36.4-46.3) fL RDW Coeff of Debby 14.6 H (11.5-14.5) % Lymph # (Auto) 0.97 L (1.20-3.40) K/uL [place] # (Auto) 0.80 H (0.11-0.59) K/uL PT 12.8 H (9.0-12.0) Seconds INR 1.2 H (0.9-1.1) APTT 31.9 H (21.0-31.0) Seconds Sodium 134 L (136-145) mmol/L Chloride 97 L (98-107) mmol/L Carbon Dioxide 33 H (21-32) mmol/L Anion Gap (3-11) Magnesium 1.3 L (1.7-2.4) mg/dl Troponin I High Sens 25.0 H 28.0 H 24.4 H (0-14) pg/ml B-Natriuretic Peptide 926 H (0-100) pg/ml Total Protein (6.0-8.3) gm/dl Albumin 2.9 L (3.4-5.0) gm/dl 07/15/23 Range/Units 06:48 RBC 3.65 L (4.20-5.40) M/uL Hgb 10.5 L (12.0-16.0) g/dl Hct 32.7 L (37.0-47.0) % RDW Std Deviation 46.5 H (36.4-46.3) fL RDW Coeff of Debby (11.5-14.5) % Lymph # (Auto) (1.20-3.40) K/uL [place] # (Auto) (0.11-0.59) K/uL PT 12.8 H (9.0-12.0) Seconds INR 1.2 H (0.9-1.1) APTT (21.0-31.0) Seconds Sodium (136-145) mmol/L Chloride 96 L (98-107) mmol/L Carbon Dioxide 41 H* (21-32) mmol/L Anion Gap 0 L (3-11) Magnesium (1.7-2.4) mg/dl Troponin I High Sens (0-14) pg/ml B-Natriuretic Peptide (0-100) pg/ml Total Protein 5.3 L (6.0-8.3) gm/dl Albumin 2.5 L (3.4-5.0) gm/dl Diagnostic Findings Cervical Spine CT 07/14/23 15:51 CT cervical spine wo con CLINICAL HISTORY: Trauma, fall TECHNIQUE: Multidetector row helical CT of the cervical spine was performed without administration of intravenous contrast. Coronal and sagittal reformations were obtained. Automated dose lowering techniques and/or adjustment according to patient size were utilized for this exam. Comparison: Comparison is made to cervical spine 05/19/2021 FINDINGS: No acute fractures or subluxations are identified. Degenerative changes are seen in the visualized spine. The alignment is normal. Biapical scarring is seen in the lungs. IMPRESSION: Degenerative changes without evidence of acute bony injury. ACT 112: Negative or not required by law. Electronically signed by: Gee Zavala M.D. 07/14/2023 4:[address] 07/14/23 15:51 CT head/brain wo con CLINICAL HISTORY: Trauma. blood thinner Technique: Contiguous axial CT images of the head were acquired from the base of the skull to the vertex without intravenous contrast administration. Images were viewed in brain, subdural and bone windows. Automated dose lowering techniques and/or adjustment according to patient size were utilized for this exam. Comparison: Comparison is made to CT head 05/19/2021 Findings: Areas of decreased attenuation are present in the periventricular and subcortical white matter bilaterally consistent with small vessel ischemic disease. Generalized cerebral atrophy with commensurate enlargement of the ventricles, sulci, and cisterns is also present. There is no acute intracranial hemorrhage or evidence of acute territorial infarction. No shift of the midline structures, mass effect, or extra-axial abnormalities are shown. Atherosclerotic calcifications are present in the intracranial segments of the internal carotid arteries. Imaged portions of the paranasal sinuses and mastoid air cells are clear. The orbits appear normal. There are no acute fractures of the calvaria or scalp swelling. Impression: No acute intracranial hemorrhage, no evidence of acute territorial infarction or other acute intracranial disease process. ACT 112: Negative or not required by law. Electronically signed by: Gee Zavala M.D. 07/14/2023 4:24 PM PG Care Time/CCT Total # of Minutes Spent Total Time Spent with Patient: Total time spent is greater than 50% in coordination of care (as documented) at patient's floor/unit and/or counseling patient: Coding Level of Care Code 49987 SUB INP/OBS CARE 2/35MIN Diagnoses Acute exacerbation of CHF (congestive heart failure) I50.9 Syncope and collapse R55 Bilateral edema of lower extremity R60.0 Paroxysmal atrial fibrillation I48.0 CAD (coronary artery disease) I25.10 Mobitz type II block I44.1 Elevated troponin R77.8 Hypomagnesemia E83.42 Ischemic cardiomyopathy I25.5 Acute on chronic systolic congestive heart failure I50.23 Demand ischemia I24.89
--- NOTE | 2023-07-15 18:30 | XCELERA ---
[id number] \\[id number]
[2023-07-15] MEDS: SIMVASTATIN 40 MG TAB PO SCH (20:53)
[2023-07-15] MEDS: EZETIMIBE 10 MG TAB PO SCH (20:54)
[2023-07-16 05:54] LABS: Hematocrit (blood only) 32.9 % (37.0-47.0); Hemoglobin 10.5 g/dl (12.0-16.0); Mean Corpuscular Hemoglobin 28.2 pg (25.0-34.0); Mean Corpuscular Hgb Conc 31.9 g/dL (32.0-36.0); Mean Corpuscular Volume 88.4 fL (80.0-100.0); Mean Platelet Volume 10.2 fL (9.4-12.4); Platelet Count 156 K/uL (130-400); RDW Coefficient of Variation 14.3 % (11.5-14.5); RDW Standard Deviation 45.7 fL (36.4-46.3); Red Blood Count 3.72 M/uL (4.20-5.40); White Blood Count 4.63 K/ul (4.8-10.8)
[2023-07-16 06:16] LABS: Albumin Globulin Ratio 0.9 (0.9-2); Albumin Level 2.5 gm/dl (3.4-5.0); BUN Creatinine Ratio 18.4 (10-20); Bilirubin,Total 0.6 mg/dl (0.2-1.0); Calcium 9.1 mg/dl (8.6-10.3); Est GFR (African American) 50.4 ml/min; Est GFR (Non-African American) 43.5 ml/min; Globulin 2.9 gm/dl (2.5-4.0); Magnesium 1.5 mg/dl (1.7-2.4); Phosphorus 3.4 mg/dl (2.5-4.9); Potassium 3.4 mmol/L (3.5-5.1); Total Protein 5.4 gm/dl (6.0-8.3)
[2023-07-16] MEDS: allopurinoL 300 MG TAB PO SCH (08:04)
[2023-07-16] MEDS: EMPAGLIFLOZIN 10 MG TAB PO SCH (08:05)
[2023-07-16] MEDS: APIXABAN 5 MG TABLET PO SCH ×2 (08:05→20:14)
[2023-07-16] MEDS: ASPIRIN 81 MG CHEW PO SCH (08:05)
[2023-07-16] MEDS: FUROSEMIDE 40 MG/4 ML VIAL IV SCH (08:05)
[2023-07-16] MEDS: CALCIUM 600MG + VIT D 400 IU TAB PO SCH ×2 (08:05→20:14)
[2023-07-16] MEDS: METOPROLOL SUCC 50MG EXT REL TAB PO SCH (08:05)
--- NOTE | 2023-07-16 11:05 | Cardiology Progress Note ---
Date of Service July 16, 2023 Assessment & Plan (1) Syncope and collapse: Plan: -2 episodes within the last week. -etiology uncertain. -pacer interrogation by Dr. Felipe noted no ventricular tachycardia or significant dysrhythmia. -? autonomic insufficiency. (2) Acute exacerbation of CHF (congestive heart failure): Plan: -mainly right-sided CHF. -agree with intravenous Lasix. -continue metoprolol succinate and Jardiance. -consider addition of Entresto. -echocardiogram notes an ejection fraction 30-35% with apical akinesis. (3) Ischemic cardiomyopathy: Plan: -continue medical management as described above. -echocardiogram as above. -continue in CHF clinic. (4) CAD (coronary artery disease): Plan: -s/p anterior MO in April 1999. -LAD stent at time of MO. -known apical aneurysm. (5) Cardiac pacemaker: Plan: -DDD pacemaker placed in August 1999, sinus arrest. -paroxysmal atrial fibrillation with rapid rates noted on pacer interrogation. Admission and Anticipated Discharge Date Admission Date: July 14, 2023 Subjective The patient is resting comfortably in bed without complaints of chest pain, dyspnea, palpitations, syncope, or presyncope. Physical Exam Physical Exam: In general is a well-developed well-nourished white female no acute distress. HEENT exam is negative. Neck is supple with full carotid upstrokes. There are no carotid bruits. Jugular is pressure is flat at 90. An ecchymosis is noted across the right neck. Cardiovascular exam reveals a regular rhythm with a normal S1 and S2. A 1/6 basal systolic ejection murmurs noted. No S3. Lungs are clear without rales, rhonchi or wheezes. Chest reveals a palpable pacemaker in left subclavicular region. Abdomen is soft and nontender without bruits. Extremities reveal trace pretibial edema to the knees bilaterally. There are bandages across both pretibial regions. 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 No atrial fibrillation. PG Care Time/CCT Total # of Minutes Spent Total Time Spent with Patient: Total time spent is greater than 50% in coordination of care (as documented) at patient's floor/unit and/or counseling patient: Coding Level of Care Code 88610 SUB INP/OBS CARE 3/50MIN Diagnoses Syncope and collapse R55 Acute exacerbation of CHF (congestive heart failure) I50.9 Ischemic cardiomyopathy I25.5 CAD (coronary artery disease) I25.10 Cardiac pacemaker Z95.0
--- NOTE | 2023-07-16 13:01 | Hospitalist Progress Note ---
Date of Service July 16, 2023 Assessment & Plan (1) Acute exacerbation of CHF (congestive heart failure): Plan: -Acute on chronic Patient does not have any orthopnea, PND, dyspnea on exertion no crackles at the bases and chest x-ray was negative Most likely has right heart failure Continue with IV Lasix 40 mg daily for now. Monitor daily BMP Continue metoprolol, Jardiance Last echo 04/06 showed EF 40%, apical thrombus Echo 07/15 shows EF 30 to 35% with apical akinesis Cardiology on board: Recommends continuing metoprolol, Jardiance. May consider starting Entresto if creatinine stable. (2) Syncope and collapse: Plan: - 2 events of Syncope with LOC without prodrome symptoms pacer interrogation showed no ventricular tachycardia or significant arrhythmias -Orthostatic V/S unremarkable Check daily orthostatic vital signs. Patient takes 20 mg of Lasix on an as- needed basis -Echo reviewed unclear etiology (3) Bilateral edema of lower extremity: Plan: -Due to CHF exacerbation, likely right heart failure -Continue IV lasix Hold isosorbide mononitrate for now See above (4) Paroxysmal atrial fibrillation: Plan: -Continue metoprolol and Eliquis 5 mg BID -Continue monitoring (5) CAD (coronary artery disease): Plan: -stable -Denied any chest pain Continue aspirin Hold isosorbide mononitrate for now (6) Mobitz type II block: Plan: - Sinus Bradycardia/Mobitz Type 2 Second-Degree AV Block s/p Dual Chamber Pacemaker -Continue monitor (7) Elevated troponin: Plan: -Mild elevation -No acute changes on ECG - Likely due to demand of CHF exacerbation (8) Hypomagnesemia: Plan: Acute Mag 1.3 Mag replaced 1 gram now Follow AM Mag (9) Ischemic cardiomyopathy: Plan: Suspected ischemic Continue metoprolol and Jardiance (10) Acute on chronic systolic congestive heart failure: Plan: please see problem #1 (11) Demand ischemia: Plan: please see problem #7 Plan Code Status: DNR/DNI DVT prophylaxes: Eliquis 5 mg BID Diet: HH/ low salt/ fluid restriction Admission and Anticipated Discharge Date Admission Date: July 14, 2023 Subjective Patient continues to diurese. Denies chest pain or shortness of breath. Leg swelling improving. No issues with dizziness or lightheadedness while in bed. Review of Systems Review of Systems: All systems reviewed & are unremarkable except as noted in Subjective Physical Exam Physical Exam: general: Awake, conversant Heart: S1, S2/regular rate and rhythm, no murmur rubs or gallops Lungs: Clear to auscultation bilaterally. Normal effort Abdomen: Soft/nontender/nondistended. No hepatosplenomegaly Extremities: No clubbing/cyanosis. 1+ pitting bilateral edema Behavior: Appropriate, cooperative Results & Data Results & Data Vital Signs (Past 12 Hours) Vital Signs Temp Pulse Pulse Resp BP BP Pulse Ox 07/16/23 11:02 36.7 C 95 H 18 93/52 L 96 07/16/23 07:50 60 07/16/23 07:12 36.6 C 65 14 119/68 94 07/16/23 03:21 36.5 C 69 18 96/61 L 95 O2 Del Method 07/16/23 11:02 Room Air 07/16/23 07:50 07/16/23 07:12 Room Air 07/16/23 03:21 Room Air Laboratory Results Abnormal lab results 07/16/23 Range/Units 05:13 WBC 4.63 L (4.8-10.8) K/ul RBC 3.72 L (4.20-5.40) M/uL Hgb 10.5 L (12.0-16.0) g/dl Hct 32.9 L (37.0-47.0) % MCHC 31.9 L (32.0-36.0) g/dL Potassium 3.4 L (3.5-5.1) mmol/L Chloride 93 L (98-107) mmol/L Carbon Dioxide 39 H (21-32) mmol/L Magnesium 1.5 L (1.7-2.4) mg/dl Total Protein 5.4 L (6.0-8.3) gm/dl Albumin 2.5 L (3.4-5.0) gm/dl PG Care Time/CCT Total # of Minutes Spent Total Time Spent with Patient: Total time spent is greater than 50% in coordination of care (as documented) at patient's floor/unit and/or counseling patient: Coding Level of Care Code 25047 SUB INP/OBS CARE 2/35MIN Diagnoses Acute exacerbation of CHF (congestive heart failure) I50.9 Syncope and collapse R55 Bilateral edema of lower extremity R60.0 Paroxysmal atrial fibrillation I48.0 CAD (coronary artery disease) I25.10 Mobitz type II block I44.1 Elevated troponin R77.8 Hypomagnesemia E83.42 Ischemic cardiomyopathy I25.5 Acute on chronic systolic congestive heart failure I50.23 Demand ischemia I24.89
[2023-07-16] MEDS ORDERED: POTASSIUM CHLORIDE CRTAB 20 MEQ TABCR PO STA (15:15)
[2023-07-16] MEDS: MAGNESIUM SULFATE / D5W 1 GM/100 ML BAG IV SCH ×2 (15:23→17:14)
[2023-07-16] MEDS: EZETIMIBE 10 MG TAB PO SCH (20:14)
[2023-07-16] MEDS: SIMVASTATIN 40 MG TAB PO SCH (20:14)
[2023-07-16] MEDS ORDERED: AMIODARONE IV BOLUS & DRIP IV STA (20:46)
[2023-07-16] MEDS ORDERED: STAT IV Infusion **Titration per Protocol STA (20:46)
[2023-07-16] MEDS ORDERED: 0.2 MICRON FILTER SET 1 EACH IV STA (20:46)
[2023-07-16] MEDS ORDERED: MAGNESIUM SULFATE / D5W 1 GM/100 ML BAG IV ONE (20:46)
[2023-07-16] MEDS ORDERED: AMIODARONE / D5W 150 MG/100 ML BAG IV STA ×2 (20:46→21:19)
[2023-07-16] MEDS ORDERED: AMIODARONE / D5W 360 MG/200 ML BAG IV ONE (20:56)
[2023-07-16] MEDS ORDERED: AMIODARONE 360MG / 200ML D5W IV ONE (20:58)
[2023-07-16] MEDS: POTASSIUM CHLORIDE / WTR 10 MEQ/100 ML PLCT IV SCH ×2 (21:15→22:12)
[2023-07-16] MEDS ORDERED: ALBUMIN 5% 250 ML IV ONE (21:19)
[2023-07-16] MEDS ORDERED: 0.2 MICRON FILTER SET 1 EACH IV ONE (21:19)
[2023-07-16 21:56] LABS: BUN Creatinine Ratio 19.5 (10-20); Calcium 8.5 mg/dl (8.6-10.3); Est GFR (African American) 43.8 ml/min; Est GFR (Non-African American) 37.8 ml/min; Magnesium 2.7 mg/dl (1.7-2.4); Phosphorus 3.8 mg/dl (2.5-4.9); Potassium 3.6 mmol/L (3.5-5.1)
--- NOTE | 2023-07-16 21:57 | Communication Note ---
Date of Service: July 16, 2023 Code Jese called at 20:37 Patient with frequent episodes of monomorphic VT Upon my arrival code team at bedside. Patient on monitor. Awake, alert and responsive. Blood pressure adequate. Patient with no complaints of chest pain or shortness of breath. Does endorse some dizziness. Frequent episodes on nonsustained monomorphic VT noted EKG obtained with no acute ischemic changes Labs drawn to include BMP, CBC, Mg, PO4, Troponin and BNP Case discussed with Cardiology personal carer Medications administered - please see nursing note for specifics -Amiodarone 150mg IV bolus then gtt -Mg x 1gm -KCL 10mEq x 2 bags -Albumin 5% x 1 bottle over 30 minutes -Amiodarone 150mg IV bolus (second bolus) Labs are pending Patient with decreased frequency of VT episodes. At this time only with occasional PVCs Plan: -Will continue Amiodarone gtt x 24 hours -Complete KCl runs and Albumin infusion -Follow labs. Replete electrolytes as needed -If patient continues with episodes of VT will consider Lidocaine infusion and transfer to ICU
[2023-07-16 22:01] LABS: Troponin I High Sensitivity 24.8 pg/ml (0-14)
[2023-07-16] MEDS ORDERED: POTASSIUM CHLORIDE CRTAB 20 MEQ TABCR PO ONE (23:00)
[2023-07-17] MEDS: AMIODARONE / D5W 360 MG/200 ML BAG IV SCH ×2 (02:44→13:58)
[2023-07-17] MEDS ORDERED: ALENDRONATE SODIUM 70 MG TAB PO SCH (06:30)
[2023-07-17 07:53] LABS: Hematocrit (blood only) 29.9 % (37.0-47.0); Hemoglobin 9.7 g/dl (12.0-16.0); Mean Corpuscular Hemoglobin 28.3 pg (25.0-34.0); Mean Corpuscular Hgb Conc 32.4 g/dL (32.0-36.0); Mean Corpuscular Volume 87.2 fL (80.0-100.0); Mean Platelet Volume 10.4 fL (9.4-12.4); Platelet Count 155 K/uL (130-400); RDW Coefficient of Variation 14.6 % (11.5-14.5); RDW Standard Deviation 46.6 fL (36.4-46.3); Red Blood Count 3.43 M/uL (4.20-5.40); White Blood Count 6.11 K/ul (4.8-10.8)
[2023-07-17] MEDS: METOPROLOL SUCC 50MG EXT REL TAB PO SCH (07:56)
[2023-07-17] MEDS: ASPIRIN 81 MG CHEW PO SCH (08:12)
[2023-07-17] MEDS: CALCIUM 600MG + VIT D 400 IU TAB PO SCH ×2 (08:12→20:04)
[2023-07-17] MEDS: allopurinoL 300 MG TAB PO SCH (08:12)
[2023-07-17] MEDS: APIXABAN 5 MG TABLET PO SCH ×2 (08:12→20:04)
[2023-07-17] MEDS: EMPAGLIFLOZIN 10 MG TAB PO SCH (08:13)
[2023-07-17 08:25] LABS: Albumin Level 2.6 gm/dl (3.4-5.0); Bilirubin,Total 0.4 mg/dl (0.2-1.0); Calcium 8.4 mg/dl (8.6-10.3); Est GFR (African American) 52.6 ml/min; Est GFR (Non-African American) 45.4 ml/min; Globulin 2.6 gm/dl (2.5-4.0); Potassium 4.8 mmol/L (3.5-5.1); Total Protein 5.2 gm/dl (6.0-8.3)
--- NOTE | 2023-07-17 11:26 | Cardiology Progress Note ---
Date of Service July 17, 2023 Assessment & Plan (1) Ventricular tachycardia: Plan: -responded well to intravenous amiodarone. -likely cause of her recent syncopal and presyncopal events. -convert to oral amiodarone tomorrow. (2) Syncope and collapse: Plan: -as above. (3) Acute exacerbation of CHF (congestive heart failure): Plan: -mainly right-sided CHF. -greatly improved with intravenous diuretics. -continue metoprolol succinate and Jardiance. -consider addition of Entresto. -echocardiogram notes an ejection fraction 30-35% with apical akinesis. (4) Ischemic cardiomyopathy: Plan: -continue medical management as described above. -echocardiogram as above. -continue in CHF clinic. (5) CAD (coronary artery disease): Plan: -s/p anterior AR in April 1999. -LAD stent at time of AR. -known apical aneurysm. (6) Cardiac pacemaker: Plan: -DDD pacemaker placed in August 1999, sinus arrest. -paroxysmal atrial fibrillation with rapid rates noted on pacer interrogation. Admission and Anticipated Discharge Date Admission Date: July 14, 2023 Subjective The patient is resting comfortably in bed without complaints of chest pain, dyspnea, palpitations, syncope, or presyncope. Events of last evening were reviewed. Physical Exam Physical Exam: In general is a well-developed well-nourished white female no acute distress. HEENT exam is negative. Neck is supple with full carotid upstrokes. There are no carotid bruits. Jugular is pressure is flat at 90. An ecchymosis is noted across the right neck. Cardiovascular exam reveals a regular rhythm with a normal S1 and S2. A 1/6 basal systolic ejection murmurs noted. No S3. Lungs are clear without rales, rhonchi or wheezes. Chest reveals a palpable pacemaker in left subclavicular region. Abdomen is soft and nontender without bruits. Extremities reveal trace pretibial edema to the knees bilaterally. There are bandages across both pretibial regions. Results & Data Vital Signs (Past 12 Hours) Vital Signs Temp Pulse Pulse Resp BP BP Pulse Ox 07/17/23 11:15 36.6 C 61 18 90/58 L 97 07/17/23 07:48 62 07/17/23 07:12 36.3 C L 63 16 102/61 100 07/17/23 06:00 60 16 114/72 96 07/17/23 05:36 60 18 116/74 07/17/23 04:00 64 18 104/70 07/17/23 03:00 62 97/60 L 07/17/23 02:59 37.4 C 59 L 16 97/62 L 95 07/17/23 01:30 60 18 101/57 L 07/17/23 00:37 60 18 97/59 L 95 O2 Del Method O2 Flow Rate 07/17/23 11:15 Room Air 07/17/23 07:48 07/17/23 07:12 Room Air 07/17/23 06:00 Nasal Cannula 07/17/23 05:36 Room Air 07/17/23 04:00 Room Air 07/17/23 03:00 07/17/23 02:59 Nasal Cannula 2 07/17/23 01:30 07/17/23 00:37 Room Air Diagnostic Findings Paroxysmal ventricular tachycardia now resolved. PG Care Time/CCT Total # of Minutes Spent Total Time Spent with Patient: Total time spent is greater than 50% in coordination of care (as documented) at patient's floor/unit and/or counseling patient: Coding Level of Care Code 33327 SUB INP/OBS CARE 3/50MIN Diagnoses Ventricular tachycardia I47.20 Syncope and collapse R55 Acute exacerbation of CHF (congestive heart failure) I50.9 Ischemic cardiomyopathy I25.5 CAD (coronary artery disease) I25.10 Cardiac pacemaker Z95.0
--- NOTE | 2023-07-17 13:08 | Hospitalist Progress Note ---
Date of Service July 17, 2023 Assessment & Plan (1) Acute exacerbation of CHF (congestive heart failure): Plan: -Acute on chronic Patient does not have any orthopnea, PND, dyspnea on exertion no crackles at the bases and chest x-ray was negative Most likely has right heart failure we will hold off on further IV Lasix today. Monitor daily BMP. Continue metoprolol, Jardiance Last echo 04/06 showed EF 40%, apical thrombus Echo 07/15 shows EF 30 to 35% with apical akinesis Cardiology on board: Recommends continuing metoprolol, Jardiance. May consider starting Entresto if creatinine stable. (2) Syncope and collapse: Plan: - 2 events of Syncope with LOC without prodrome symptoms pacer interrogation showed no ventricular tachycardia or significant arrhythmias However she had an episode yesterday of dizziness associated with nonsustained V. tach. She was started on amiodarone drip V. tach could be responsible for her dizzy spells Cardiology on board Recommends continuing IV amiodarone and switch to p.o. tomorrow. -Orthostatic V/S unremarkable Orthostatic vital signs today negative. Patient takes 20 mg of Lasix on an as-needed basis -Echo reviewed (3) Bilateral edema of lower extremity: Plan: -Due to CHF exacerbation, likely right heart failure - Hold IV Lasix today as volume status seems to be acceptable today. Hold isosorbide mononitrate for now See above (4) Paroxysmal atrial fibrillation: Plan: -Continue metoprolol and Eliquis 5 mg BID -Continue monitoring (5) CAD (coronary artery disease): Plan: -stable -Denied any chest pain Continue aspirin Hold isosorbide mononitrate for now (6) Mobitz type II block: Plan: - Sinus Bradycardia/Mobitz Type 2 Second-Degree AV Block s/p Dual Chamber Pacemaker -Continue monitor (7) Elevated troponin: Plan: -Mild elevation -No acute changes on ECG - Likely due to demand of CHF exacerbation (8) Hypomagnesemia: Plan: Acute Magnesium replaced. (9) Ischemic cardiomyopathy: Plan: Suspected ischemic Continue metoprolol and Jardiance (10) Acute on chronic systolic congestive heart failure: Plan: please see problem #1 (11) Demand ischemia: Plan: please see problem #7 Plan Code Status: DNR/DNI DVT prophylaxes: Eliquis 5 mg BID Diet: HH/ low salt/ fluid restriction Admission and Anticipated Discharge Date Admission Date: July 14, 2023 Subjective patient had an episode last night when she started feeling dizzy. At the same time a code azucena was called and a group of people gushed into her room. Event note stated that she was in nonsustained Monomorphic V. tach. she was started on amiodarone drip. Electrolytes were replaced. This morning the patient feels well. She says that the episode yesterday was very similar to the dizzy spells that she was getting at home. Review of Systems Review of Systems: All systems reviewed & are unremarkable except as noted in Subjective Physical Exam Physical Exam: general: Awake, conversant Heart: S1, S2/regular rate and rhythm, no murmur rubs or gallops Lungs: Clear to auscultation bilaterally. Normal effort Abdomen: Soft/nontender/nondistended. No hepatosplenomegaly Extremities: No clubbing/cyanosis. 1+ pitting bilateral edema Improving Behavior: Appropriate, cooperative Results & Data Results & Data Vital Signs (Past 12 Hours) Vital Signs Temp Pulse Pulse Resp BP BP Pulse Ox 07/17/23 12:16 98/61 L 07/17/23 11:15 36.6 C 61 18 90/58 L 97 07/17/23 07:48 62 07/17/23 07:12 36.3 C L 63 16 102/61 100 07/17/23 06:00 60 16 114/72 96 07/17/23 05:36 60 18 116/74 07/17/23 04:00 64 18 104/70 07/17/23 03:00 62 97/60 L 07/17/23 02:59 37.4 C 59 L 16 97/62 L 95 07/17/23 01:30 60 18 101/57 L O2 Del Method O2 Flow Rate 07/17/23 12:16 07/17/23 11:15 Room Air 07/17/23 07:48 07/17/23 07:12 Room Air 07/17/23 06:00 Nasal Cannula 07/17/23 05:36 Room Air 07/17/23 04:00 Room Air 07/17/23 03:00 07/17/23 02:59 Nasal Cannula 2 07/17/23 01:30 Laboratory Results Abnormal lab results 07/16/23 07/17/23 Range/Units 21:08 07:36 RBC 3.43 L (4.20-5.40) M/uL Hgb 9.7 L (12.0-16.0) g/dl Hct 29.9 L (37.0-47.0) % RDW Std Deviation 46.6 H (36.4-46.3) fL RDW Coeff of Debby 14.6 H (11.5-14.5) % Sodium 131 L 134 L (136-145) mmol/L Chloride 89 L 95 L (98-107) mmol/L Carbon Dioxide 36 H 38 H (21-32) mmol/L Anion Gap 1 L (3-11) BUN 25 H (6-23) mg/dl Creatinine 1.28 H (0.6-1.2) mg/dl Glucose 185 H (70-99(Fasting)) mg/dl Calcium 8.5 L 8.4 L (8.6-10.3) mg/dl Magnesium 2.7 H (1.7-2.4) mg/dl Troponin I High Sens 24.8 H (0-14) pg/ml B-Natriuretic Peptide 444 H (0-100) pg/ml Total Protein 5.2 L (6.0-8.3) gm/dl Albumin 2.6 L (3.4-5.0) gm/dl PG Care Time/CCT Total # of Minutes Spent Total Time Spent with Patient: Total time spent is greater than 50% in coordination of care (as documented) at patient's floor/unit and/or counseling patient: Coding Level of Care Code 74571 SUB INP/OBS CARE 2/35MIN Diagnoses Acute exacerbation of CHF (congestive heart failure) I50.9 Syncope and collapse R55 Bilateral edema of lower extremity R60.0 Paroxysmal atrial fibrillation I48.0 CAD (coronary artery disease) I25.10 Mobitz type II block I44.1 Elevated troponin R77.8 Hypomagnesemia E83.42 Ischemic cardiomyopathy I25.5 Acute on chronic systolic congestive heart failure I50.23 Demand ischemia I24.89
--- NOTE | 2023-07-17 13:17 | Electrocardiogram Report ---
Test Reason : Blood Pressure : / mmHG Vent. Rate : 079 BPM Atrial Rate : 084 BPM P-R Int : 000 ms QRS Dur : 166 ms QT Int : 480 ms P-R-T Axes : 113 -76 118 degrees QTc Int : 550 ms Poor data quality, interpretation may be adversely affected Ventricular-paced rhythm with occasional , and consecutive Premature ventricular complexes Abnormal ECG When compared with ECG of 14-JUL-2023 15:10, Premature ventricular complexes are now Present Vent. rate has decreased BY 41 BPM Confirmed by Giovanny Springer ([id number]) on 07/17/2023 1:17:12 PM Referred By: REFERRED SELF Confirmed By:Giovanny Springer
[2023-07-17] MEDS: EZETIMIBE 10 MG TAB PO SCH (20:04)
[2023-07-18] MEDS: AMIODARONE / D5W 360 MG/200 ML BAG IV SCH ×2 (02:04→17:18)
[2023-07-18 06:46] LABS: Hematocrit (blood only) 33.8 % (37.0-47.0); Hemoglobin 10.8 g/dl (12.0-16.0); Mean Corpuscular Hemoglobin 28.3 pg (25.0-34.0); Mean Corpuscular Volume 88.5 fL (80.0-100.0); Mean Platelet Volume 10.1 fL (9.4-12.4); Platelet Count 155 K/uL (130-400); RDW Coefficient of Variation 14.6 % (11.5-14.5); RDW Standard Deviation 46.8 fL (36.4-46.3); Red Blood Count 3.82 M/uL (4.20-5.40); White Blood Count 5.59 K/ul (4.8-10.8)
[2023-07-18 07:14] LABS: Albumin Globulin Ratio 0.9 (0.9-2); Albumin Level 2.6 gm/dl (3.4-5.0); Bilirubin,Total 0.4 mg/dl (0.2-1.0); Calcium 8.8 mg/dl (8.6-10.3); Creatinine Clr Calc Pharmacy 30.4 ml/min; Est GFR (African American) 55.7 ml/min; Est GFR (Non-African American) 48.1 ml/min; Globulin 2.9 gm/dl (2.5-4.0); Potassium 4.8 mmol/L (3.5-5.1); Total Protein 5.5 gm/dl (6.0-8.3)
[2023-07-18] MEDS: CALCIUM 600MG + VIT D 400 IU TAB PO SCH ×2 (08:39→20:37)
[2023-07-18] MEDS: METOPROLOL SUCC 50MG EXT REL TAB PO SCH (08:39)
[2023-07-18] MEDS: APIXABAN 5 MG TABLET PO SCH ×2 (08:39→20:38)
[2023-07-18] MEDS: ASPIRIN 81 MG CHEW PO SCH (08:40)
[2023-07-18] MEDS: EMPAGLIFLOZIN 10 MG TAB PO SCH (08:40)
[2023-07-18] MEDS: allopurinoL 300 MG TAB PO SCH (08:40)
--- NOTE | 2023-07-18 15:08 | Cardiology Progress Note ---
Date of Service July 18, 2023 Assessment & Plan (1) Ventricular tachycardia: Plan: -responded well to intravenous amiodarone. -likely cause of her recent syncopal and presyncopal events. -would convert to oral amiodarone. (2) Syncope and collapse: Plan: -as above. (3) Acute exacerbation of CHF (congestive heart failure): Plan: -mainly right-sided CHF. -resolved with intravenous diuretics. -continue metoprolol succinate and Jardiance. -consider addition of Entresto. -echo notes ejection fraction 30-35% with apical akinesis. (4) Ischemic cardiomyopathy: Plan: -continue medical management as described above. -echocardiogram as above. -continue in CHF clinic. (5) CAD (coronary artery disease): Plan: -s/p anterior PR in April 1999. -LAD stent at time of PR. -known apical aneurysm. (6) Cardiac pacemaker: Plan: -DDD pacemaker placed in August 1999, sinus arrest. -paroxysmal atrial fibrillation with rapid rates noted on pacer interrogation. Admission and Anticipated Discharge Date Admission Date: July 14, 2023 Subjective The patient is resting comfortably in bed without complaints of chest pain, dyspnea, or palpitations. Physical Exam Physical Exam: In general is a well-developed well-nourished white female no acute distress. HEENT exam is negative. Neck is supple with full carotid upstrokes. There are no carotid bruits. Jugular is pressure is flat at 90. An ecchymosis is noted across the right neck. Cardiovascular exam reveals a regular rhythm with a normal S1 and S2. A 1/6 basal systolic ejection murmurs noted. No S3. Lungs are clear without rales, rhonchi or wheezes. Chest reveals a palpable pacemaker in left subclavicular region. Abdomen is soft and nontender without bruits. Extremities reveal trace pretibial edema to the knees bilaterally. There are bandages across both pretibial regions. 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 PG Care Time/CCT Total # of Minutes Spent Total Time Spent with Patient: Total time spent is greater than 50% in coordination of care (as documented) at patient's floor/unit and/or counseling patient: Coding Level of Care Code 71770 SUB INP/OBS CARE 3/50MIN Diagnoses Ventricular tachycardia I47.20 Syncope and collapse R55 Acute exacerbation of CHF (congestive heart failure) I50.9 Ischemic cardiomyopathy I25.5 CAD (coronary artery disease) I25.10 Cardiac pacemaker Z95.0
--- NOTE | 2023-07-18 18:17 | Hospitalist Progress Note ---
Date of Service July 18, 2023 Assessment & Plan (1) Acute exacerbation of CHF (congestive heart failure): Plan: -Acute on chronic-improved ECHO with EF 30-35%, with WMAs and reduced RV function, elevated RVSP--> LVEF reduced from previous in Mar 2023 lasix held for VT, can resume lasix 20mg po daily tomorrow for peripheral edema - Monitor daily BMP. Continue metoprolol, Jardiance, and consider adding Entresto as outpt with CHF clinic Last echo 04/06 showed EF 40%, apical thrombus -f/u with CHF clinic -low sodium diet, fluid restrict (2) Syncope and collapse: Plan: - 2 events of Syncope with LOC without prodrome symptoms pacer interrogation showed no ventricular tachycardia or significant arrhythmias However she had an episode here of dizziness associated with nonsustained V. tach--> question if pacer did not pick this up previously? - She was started on amiodarone drip and now improved, no further VT, lytes replaced V. tach could be responsible for her dizzy spells Cardiology on board Recommends continuing IV amiodarone and switch to p.o. -Orthostatic vitals unremarkable (3) Bilateral edema of lower extremity: Plan: -Due to CHF exacerbation and right heart failure improved (4) Paroxysmal atrial fibrillation: Plan: -Continue metoprolol and Eliquis 5 mg BID -Continue monitoring (5) CAD (coronary artery disease): Plan: -stable -Denied any chest pain Continue aspirin Hold isosorbide mononitrate for now given dizziness (6) Mobitz type II block: Plan: - Sinus Bradycardia/Mobitz Type 2 Second-Degree AV Block s/p Dual Chamber Pacemaker (7) Elevated troponin: Plan: -Mild elevation -No acute changes on ECG - Likely due to demand of CHF exacerbation (8) Hypomagnesemia: Plan: Magnesium replaced and now resolved (9) Ischemic cardiomyopathy: Plan: Suspected ischemic Continue metoprolol and Jardiance no plans for ischemic eval given advanced age (10) Acute on chronic systolic congestive heart failure: Plan: please see problem #1 (11) Demand ischemia: Plan: please see above (12) Ventricular tachycardia: Plan: as above (13) Hypertension: Plan: BPs contorlled Plan Code Status: DNR/DNI DVT prophylaxis: Eliquis 5 mg BID Dispo-likely dc to home tomrorow Admission and Anticipated Discharge Date Admission Date: July 14, 2023 Subjective Pt feelin gmuch better, no further dizziness, no further VT on tele No other concerns Physical Exam Constitutional: WD/WN, vitals as above Cardiovascular: Rate/Rhythm: regular rate and regular rhythm Heart Sounds: no murmur Extremities: + edema (trace edema left> right ankle) Gastrointestinal (Abdomen): normal bowel sounds, soft, nontender, no hepatos plenomegaly Skin: ecchymosis right neck Results & Data Results & Data Vital Signs (Past 12 Hours) Vital Signs Temp Pulse Pulse Resp BP BP Pulse Ox 07/18/23 15:42 36.7 C 63 18 94/53 L 95 07/18/23 15:14 60 07/18/23 11:32 36.7 C 61 18 105/63 94 07/18/23 07:16 36.5 C 64 18 107/64 95 O2 Del Method 07/18/23 15:42 Room Air 07/18/23 15:14 07/18/23 11:32 Room Air 07/18/23 07:16 Room Air Laboratory Results BMP reviewed PG Care Time/CCT Total # of Minutes Spent Total Time Spent with Patient: Total time spent is greater than 50% in coordination of care (as documented) at patient's floor/unit and/or counseling patient: Coding Level of Care Code 68127 SUB INP/OBS CARE 3/50MIN Diagnoses Acute exacerbation of CHF (congestive heart failure) I50.9 Syncope and collapse R55 Bilateral edema of lower extremity R60.0 Paroxysmal atrial fibrillation I48.0 CAD (coronary artery disease) I25.10 Mobitz type II block I44.1 Elevated troponin R77.8 Hypomagnesemia E83.42 Ischemic cardiomyopathy I25.5 Acute on chronic systolic congestive heart failure I50.23 Demand ischemia I24.89 Ventricular tachycardia I47.20 Hypertension I10
[2023-07-18] MEDS: EZETIMIBE 10 MG TAB PO SCH (20:38)
[2023-07-19] MEDS: AMIODARONE / D5W 360 MG/200 ML BAG IV SCH (04:37)
[2023-07-19 07:46] LABS: Hematocrit (blood only) 32.7 % (37.0-47.0); Hemoglobin 10.2 g/dl (12.0-16.0); Mean Corpuscular Hemoglobin 27.8 pg (25.0-34.0); Mean Corpuscular Hgb Conc 31.2 g/dL (32.0-36.0); Mean Corpuscular Volume 89.1 fL (80.0-100.0); Mean Platelet Volume 10.5 fL (9.4-12.4); Platelet Count 182 K/uL (130-400); RDW Coefficient of Variation 14.7 % (11.5-14.5); Red Blood Count 3.67 M/uL (4.20-5.40); White Blood Count 5.77 K/ul (4.8-10.8)
[2023-07-19 08:01] LABS: BUN Creatinine Ratio 20.6 (10-20); Calcium 8.9 mg/dl (8.6-10.3); Creatinine Clr Calc Pharmacy 32.9 ml/min; Est GFR (African American) 61.3 ml/min; Est GFR (Non-African American) 52.9 ml/min; Magnesium 1.7 mg/dl (1.7-2.4); Potassium 4.8 mmol/L (3.5-5.1)
[2023-07-19] MEDS: METOPROLOL SUCC 50MG EXT REL TAB PO SCH (08:17)
[2023-07-19] MEDS: allopurinoL 300 MG TAB PO SCH (08:17)
[2023-07-19] MEDS: ASPIRIN 81 MG CHEW PO SCH (08:17)
[2023-07-19] MEDS: EMPAGLIFLOZIN 10 MG TAB PO SCH (08:17)
[2023-07-19] MEDS: APIXABAN 5 MG TABLET PO SCH (08:18)
[2023-07-19] MEDS: CALCIUM 600MG + VIT D 400 IU TAB PO SCH (08:18)
[2023-07-19] MEDS ORDERED: FUROSEMIDE 20 MG TAB PO SCH (09:00)
--- NOTE | 2023-07-19 10:33 | Cardiology Progress Note ---
Date of Service July 19, 2023 Assessment & Plan (1) Ventricular tachycardia: Plan: -resolved with intravenous amiodarone. -likely cause of her recent syncopal and presyncopal events. -would convert to oral amiodarone. -stable for hospital discharge. (2) Syncope and collapse: Plan: -as above. (3) Acute exacerbation of CHF (congestive heart failure): Plan: -mainly right-sided CHF. -resolved with intravenous diuretics. -continue metoprolol succinate and Jardiance. -consider addition of Entresto vs ARB vs ACEI. -will enroll in CHF clinic. (4) Ischemic cardiomyopathy: Plan: -continue medical management as described above. -echo notes ejection fraction 30-35% with apical akinesis (was 45-50%, March 2023). -no aggressive/invasive workup realizing her age and numerous comorbidities. -continue conservative medical care. (5) CAD (coronary artery disease): Plan: -s/p anterior [place] in April 1999. -LAD stent at time of [place]. -known apical aneurysm. (6) Cardiac pacemaker: Plan: -DDD pacemaker placed in August 1999, sinus arrest. -paroxysmal atrial fibrillation with rapid rates noted on interrogation, 07/15/2023. Admission and Anticipated Discharge Date Admission Date: July 14, 2023 Subjective The patient is resting comfortably in bed without complaints of chest pain, dyspnea, palpitations, or syncope. Physical Exam Physical Exam: In general is a well-developed well-nourished white female no acute distress. HEENT exam is negative. Neck is supple with full carotid upstrokes. There are no carotid bruits. Jugular is pressure is flat at 90. An ecchymosis is noted across the right neck. Cardiovascular exam reveals a regular rhythm with a normal S1 and S2. A 1/6 basal systolic ejection murmurs noted. No S3. Lungs are clear without rales, rhonchi or wheezes. Chest reveals a palpable pacemaker in left subclavicular region. Abdomen is soft and nontender without bruits. Extremities reveal trace pretibial edema to the knees bilaterally. 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 Atrial fibrillation is the underlying rhythm. No ventricular tachycardia. PG Care Time/CCT Total # of Minutes Spent Total Time Spent with Patient: Total time spent is greater than 50% in coordination of care (as documented) at patient's floor/unit and/or counseling patient: Coding Level of Care Code 36912 SUB INP/OBS CARE 3/50MIN Diagnoses Ventricular tachycardia I47.20 Syncope and collapse R55 Acute exacerbation of CHF (congestive heart failure) I50.9 Ischemic cardiomyopathy I25.5 CAD (coronary artery disease) I25.10 Cardiac pacemaker Z95.0
[2023-07-19] MEDS ORDERED: MAGNESIUM SULFATE / D5W 1 GM/100 ML BAG IV ONE (12:20)
[2023-07-19] MEDS ORDERED: AMIODARONE 200 MG TAB PO SCH ×3 (12:20→12:30)
--- NOTE | 2023-07-19 13:17 | Discharge Summary ---
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 She refers she had 2 episode of LOC with no prodrome symptoms, the first one a week ago and last one 2 days ago. On the last episode she hit her neck against the sink. She report not having any symptoms prior, denied any light headedness, or dizziness. She does report some dizziness, flush and light headedness for weeks now that had never ended with syncope or presyncope. In terms of her legs, she report swelling since 2 weeks and weeping from the legs since 3 days ago. She report that she take her Lasix daily 20mg but sometimes she skip it and had also stopped her daily weights. By chart reviewed, pt was admitted on March due to CHF exacerbation and post operative ileus. ECHO (04/08/23: EF slightly worse (EF: 40%)Mitral regurgitation, Tricuspid regurgitation, apical thrombus, wall abnormalities are more pronounced. Cardiology did not recommended DELORES at that point and continue anticoagulation. She was discharge on Metoprolol, Imdur and Eliquis 5 mg BID. As per Heart failure clinic patient was euvolemic on 06/03 and Lasix was decreased 20 mg PRN. At evaluation she was found in no acute distress. Denied any shortness of breath, chest pain, palpitations, headache, dizziness, nausea, vomiting, abdominal pain, diarrhea or any other symptoms. Chest Xray showed no cute chest disease, no pleural effusion, cardiomegaly noted. Cervical CT: No acute bony injury. Head CT: no acute hemorrhages, no evidence of infarction. Chemistry noted to have hyponatremia, hypomagnesium and a BNP of 926 and troponin of 25. Magnesium was replaced with 1 gram now. IV Lasix 40 mg ordered for now Principal Dx & Hospital Course #1 = Principal Diagnosis (1) Acute exacerbation of CHF (congestive heart failure): Acute on chronic- systolic CHF--> improved ECHO with EF 30-35%, with WMAs and reduced RV function, elevated RVSP--> LVEF reduced from previous in Mar 2023 Diuresed with IV lasix and dc to home on lasix 20mg po daily rather than prn Continue metoprolol succinate, Jardiance, and consider adding Entresto as outpt with CHF clinic -f/u with CHF clinic for GDMT -low sodium diet, fluid restrict -may need ICD if EF not improving with GDMT in light of VT (2) Ventricular tachycardia: with VT noted on repeat pacer interrogation which corresponded with her home episodes of syncope and the same rhythm which caused her dizziness in hospital started amiodarone gtt and converted to amiodarone 200mg po bid for home use which helped-no further episodes here f/u with Cardio as outpt and may need ICD if EF not improving (3) Syncope and collapse: - 2 events of Syncope with LOC 2/2 VT as above orthostatics negative, no on ECHO (4) Bilateral edema of lower extremity: -Due to CHF exacerbation and right heart failure improved (5) Paroxysmal atrial fibrillation: -Continue metoprolol and Eliquis 5 mg BID (6) CAD (coronary artery disease): -stable -Denied any chest pain Continue aspirin Hold isosorbide mononitrate to allow room for GDMT for CHF (7) Mobitz type II block: - Sinus Bradycardia/Mobitz Type 2 Second-Degree AV Block s/p Dual Chamber P acemaker (8) Elevated troponin: Demand ischemia -Mild elevation of troponin -No acute changes on ECG - Likely due to demand of CHF exacerbation (9) Hypomagnesemia: Magnesium replaced (10) Ischemic cardiomyopathy: Suspected ischemic Continue metoprolol and Jardiance no plans for ischemic eval given advanced age (11) Hypertension: BPs controlled (12) Anemia: mild, hgb 10 f/u with PCP Plan Code Status: DNR/DNI DVT prophylaxis: Eliquis 5 mg BID Dispo-dc to home today Discharge Exam Constitutional WD/WN, vitals as above Respiratory normal respiratory effort, lungs clear to auscultation Cardiovascular Rate/Rhythm: regular rate and regular rhythm Heart Sounds: no murmur Extremities: + edema (trace edema left> right ankle) Gastrointestinal (Abdomen) normal bowel sounds, soft, nontender, no hepatosplenomegaly Psychiatric A+Ox3, euthymic affect Updated Medication List Medication Instructions Recorded Confirmed Type ezetimibe 10 mg-simvastatin 40 mg 1 tab PO PM ##0 09/19/06 07/14/23 History tablet (Vytorin) nitroglycerin 0.4 mg sublingual 0.4 mg sublingual UD PRN Chest 04/05/13 07/14/23 History tablet (Nitrostat) Pain #0 BTLS allopurinol 300 mg tablet 300 mg PO QAM ##90 02/13/17 07/14/23 History aspirin 81 mg chewable tablet 81 mg PO QAM 04/22/21 07/14/23 History isosorbide mononitrate 30 mg 30 mg PO QAM 05/19/21 07/14/23 History tablet,extended release 24 hr calcium carbonate 500 mg-vitamin 1 tab PO BID 09/11/21 07/14/23 History D3 10 mcg (400 unit) tablet (Calcium 500 + D) alendronate 70 mg tablet (Fosamax) 70 mg PO WK 05/03/22 07/14/23 History apixaban 5 mg tablet 5 mg PO BID #180 tabs 10/06/22 07/14/23 Rx acetaminophen 500 mg tablet 500 mg PO QID PRN Pain 11/10/22 07/14/23 History (Tylenol Extra Strength) empagliflozin 10 mg tablet 10 mg PO DAILY #90 tabs 05/13/23 07/14/23 Rx (Jardiance) metoprolol succinate 50 mg 50 mg PO QAM #30 tabs 05/13/23 07/14/23 Rx tablet,extended release 24 hr amiodarone 200 mg tablet 200 mg PO BID #60 tabs 07/19/23 Rx furosemide 20 mg tablet 20 mg PO QAM SWELLING #30 tabs 07/19/23 Rx Hospital Stay Data Consultations 07/14/23 17:42 ED Decision to Admit Stat 07/14/23 18:07 ED Decision to Admit Stat 07/14/23 21:09 Consult Cardiology Routine Diagnostic Imagining Performed 07/14/23 15:51 CT cervical spine wo con Stat CT head/brain wo con Stat ECHO Pending Results Patient Have Any Pending Studies at Discharge: No Discharge Instructions Given to Patient (Per Discharging Provider) You were admitted after passing out. While you were here, you were found to have an abnormal heart rhythm called ventricular tachycardia that caused you to be dizzy. This is likely what caused you to pass out. You were started on a new medication called amiodarone to help keep this from happening. Please follow up with the Catheterization Laboratory Technician for this. You were also overloaded with fluid and given lasix through the IV to get extra fluid off of you. Please continue taking the lasix 20mg every day and follow up with Ms. Walsh in the CHF clinic for further treatment of your heart failure. Call your Primary Care doctor if any of the following symptoms or problems start or get worse: * Shortness of breath or difficulty breathing * Wake up at night short of breath * Chest pain * Cough * Swelling of your hands, feet, or legs * More fatigued or tired with your normal activity * Palpitations - sudden fast heart beats WEIGHT * Weigh yourself every morning after using the bathroom. * Use the same scale. * Wear the same amount of clothing. * Write your weight down on a chart. * Call your Primary Care doctor if you gain more than 2-3 pounds in 1-2 days. MEDICATIONS * Use this discharge instruction sheet for medication instructions. * Take your medications at the time your doctor ordered. * Do not skip a dose of your medicines. * If you miss a dose of medicine, take it as soon as possible, but DO NOT DOUBLE A DOSE. * Read your medicine information when you get home. * Know all of the side effects of your medicine. If in doubt, ask your pharmacist * Call your Primary Care doctor's office if you have any side effects. * Be sure all of your doctors know what medicine and herbs you take (including cold, flu, and herbal medicine). Take the following with you to your follow-up doctor appointments: * Weight Chart * Medication List * List of questions Do not drink excessive alcohol, beer or wine. Total Time Total Time Spent Total Time Spent (In Minutes): 45 min Total Time Includes: Examination of the Patient, Discharge Planning, Medication Reconciliation and Communication With Other Providers (Cardiology) Coding Level of Care Code 55360 INP/OBS DISCH >30 MIN Diagnoses Acute exacerbation of CHF (congestive heart failure) I50.9 Ventricular tachycardia I47.20 Syncope and collapse R55 Bilateral edema of lower extremity R60.0 Paroxysmal atrial fibrillation I48.0 CAD (coronary artery disease) I25.10 Mobitz type II block I44.1 Elevated troponin R77.8 Hypomagnesemia E83.42 Ischemic cardiomyopathy I25.5 Hypertension I10 Anemia D64.9
[2023-07-19] MEDS ORDERED: DEXTROSE 5% 100 ML BAG IV ONE (18:21)
[2023-07-19] MEDS ORDERED: SODIUM CHLORIDE 0.9% 10ML FLUSH IV ONE (18:21)
[2023-07-19] MEDS ORDERED: AMIODARONE HCL INJ 50 MG/ML 3 ML VIAL IV ONE (18:21)
== END 2023-07-19 18:22 | disposition home or self-care (01) | DRG 291 ==
LOC: ED 13:26 → 2S 18:41 → SUATTDRO 18:41 → 2S 19:44

== ENCOUNTER 2023-10-25 09:07 | Inpatient (IN) ==
--- NOTE | 2023-10-25 09:24 | Emergency Department Note ---
Impression & Plan Fall, Bradycardia, Acute kidney injury superimposed on CKD, Diverticulitis large intestine ED Provider Note Provider: Van Ching MD DATE OF SERVICE: 10/25/2023 CHIEF COMPLAINT: Fall HISTORY OF PRESENT ILLNESS: Patient is a 87-year-old female past medical history of heart failure, paroxysmal atrial fibrillation on Eliquis, CAD, CKD, and hypertension presenting here today after a fall via ambulance. Patient states she is using a wheeled walker and it became unsteady and tipped over the right she fell on the right side. Did hit her head but did not lose consciousness. Denies dizziness before or now. Denies significant headache or visual change. Denies palpitations or chest pain or difficulty breathing. Does report her neck was a bit stiff last night continues to be a little bit stiff. Denies new numbness or tingling extremities but over the last several days has noticed some increased swelling of her legs. Did stop her diuretic related to renal function. Patient is on Eliquis. No fever cough or cold reported. Denies nausea or vomiting. Bit of soreness of the right hip region but able to move her legs fairly well. PAST MEDICAL HISTORY: As noted above MEDICATIONS: Reviewed home medications includes Eliquis SOCIAL HISTORY: Resides at home PHYSICAL EXAM: GENERAL: alert and oriented in no acute distress on stretcher Head: normocephalic and atraumatic EYES: No injection, discharge or icterus. PERRL, EOMI. NECK: Trachea midline. Supple mild diffuse tenderness but no particular midline bony tenderness of cervical spine ENT: Mucous membranes pink and moist. LUNGS: Airway patent. No retractions. Breath sounds clear with good air entry bilaterally. HEART: Bradycardic rate and rhythm. No chest wall tenderness with left upper chest subcutaneous pacemaker noted ABDOMEN: Soft and non-tender, without guarding or rebound. SKIN: Acyanotic, warm, dry, without rashes EXTREMITIES: Patient with some scattered bruising in the upper extremities but no significant pain or tenderness or evidence of compartment syndrome of the upper extremities bilaterally. Left lower leg has some slight tenderness at the right hip and proximal thigh region as well as 1-2+ edema of the lower extremities by the ankles. Some mild erythematous skin change and contusion noted here. NEUROLOGICAL: No focal deficits. No aphasia. No facial droop or slurred speech. Normal strength and tone in the extremities. Sensation to gross touch normal. A EKG: Believe erroneous in relation to computer interpretation appears to show large bundle branch block and a heart rate of approximately 48 pacer spikes with significant delay to ventricular contraction. No acute ST segment CONTINUOUS CARDIAC MONITORING: was ordered and showed a heart rate of 30s-50s bpm in paced rhythm bradycardic GCS 15. Patient's laboratory studies and imaging reviewed. Differential includes Fracture, dislocation, contusion, intra-abdominal, pneumothorax, intrathoracic, intracranial, neurologic, compartment syndrome, rhabdomyolysis, as well as other pathologies. IMPRESSION/MEDICAL DECISION MAKING: Patient suffered with signs of mechanical type fall. Extensive medical history on anticoagulation. Patient with subacute swelling of the lower legs has been off diuretic due to worsening renal function. Not hypoxic here. Did strike her head given her use of anticoagulation will obtain a head CT. No significant chest wall tenderness and doubt rib fracture. No significant abdominal tenderness but the pain of the right lateral hip region. Will obtain CT abdomen pelvis given use of anticoagulation to exclude fractures or bleeding in this region as well as CT of the head again and cervical spine given she has a bit of neck discomfort. Does have some sequela of fluid overload and swelling of the lower legs but again does not appear severe. Given worsened renal function on recent outpatient blood work will repeat blood work today to see where these values are today. EKG obtained here with significant conduction delay for atrial pacing noted. Pacemaker interrogation ordered. Not having active chest pain at this time. Chest x-ray per radiology without significant evidence of fluid overload or pneumothorax noted. No sign leukocytosis today with slightly worsened anemia of 9 from baseline around 10. Some hyperkalemia is with some hyponatremia and worsening renal function. Will challenge with small amount (250ml) of IV fluid. Will give some insulin, dextrose, bicarb, and calcium. Again pacemaker interrogation given concerns for capture issues. CT questions some diverticulitis will cover with antibiotics the patient does have a history of diverticulitis according to son who later arrived. Additionally a sacral fracture noted. Evidently fell last night assisted to bed and has had diarrhea the past week. Denies respiratory symptoms and question truly if the incidental report of some infectious findings on the CT of the abdomen and the lung bases is real. Will be covered with antibiotics in any event. Will avoid significant fluid boluses given her history of CHF but again we will trial some to see if there is improvement. Pacemaker [employer] client support representative came to the ER and evaluated the pacemaker and determined the pacemaker was not capturing. They adjusted various settings to obtain device capture. Pacemaker heart rate now improved to 60 will need further cardiac evaluation while here in the hospitalist was updated with this finding. Unclear how long failed capture has been occurring that may have contributed bit to her weakness. DIAGNOSIS: Fall, long-term anticoagulation, IGNACIO on CKD, hyperkalemia, diverticulitis, bradycardia, S3 fracture DISPOSITION: Hospitalist will evaluate Patient was agreeable with this plan. Critical Care I have personally spent 48 minutes of critical care time in the direct management of this patient. This includes bedside care, interpretation of diagnostic studies, and testing, discussion with consultants, patient, and family members, and other required patient management activities. These 48 minutes is in excess of all separately billable procedures. Past Med/Surg History Medical History Syncope and collapse Non-ST elevation ND (NSTEMI) Loose stools Hx of pancreatitis Peripheral vascular disease Osteopenia Old myocardial infarct Malignant melanoma of skin Hypercholesterolemia Paroxysmal atrial fibrillation CAD (coronary artery disease) History of pelvic mass Chronic kidney disease, stage 3 Gout Hearing deficit Hypertension Hyperlipidemia Pacemaker Surgical History S/P left inguinal hernia repair (11/18/22) Hx laparoscopic cholecystectomy (11/18/22) S/P cardiac pacemaker procedure S/P ORIF (open reduction internal fixation) fracture S/P trigger finger release History of cochlear implant History of herniorrhaphy History of cholecystectomy History of cataract surgery History of heart artery stent Family History Family/Other Hearing loss Father Heart disease Mother Cancer Other No family history of adverse response to anesthesia No family history of bleeding disorder Denies family history of Ovarian cancer Chronic kidney disease Breast cancer Colorectal cancer Social History Smoking Status: Never smoker Age Started Using Tobacco: 43; Age Quit Using Tobacco: 63; packs per day: 0.5; Cigarettes Per Day: quit 1998; Second Hand Exposure: Yes (hx); Do You Dip or Chew Tobacco: No; Hx Alcohol Use: Yes Alcohol type: wine Alcohol Intake Frequency: Monthly or Less Hx Substance Use: No Preferred Language: Latvian Communication Ability: Effective Visual Impairment: No Limitations Under Seal Operator Required: No Beliefs That Will Affect Care: Rastafari Rastafari Beliefs: Faith marital status: / Current Living Situation: Family Current Living Situation Comment: sons How many Children do You have: 5 Feels Safe at Home: Yes Diet: regular during the past year weight has: decreased > 10 lbs Assistive Devices: Cane and Walker Allergies Allergies Allergy/AdvReac Type Severity Reaction Status Date / Time Penicillins Allergy Intermediate Hives; Verified 10/25/23 11:02 SYNCOPE heparin AdvReac Severe Thrombocytopenia; Verified 10/25/23 11:02 NEUTROPENIA Home Meds Home Medications Medication Instructions Recorded Confirmed ezetimibe 10 mg-simvastatin 40 mg 1 tab PO PM ##0 09/19/06 10/25/23 tablet (Vytorin) nitroglycerin 0.4 mg sublingual 0.4 mg sublingual UD PRN Chest 04/05/13 10/25/23 tablet (Nitrostat) Pain #0 BTLS allopurinol 300 mg tablet 300 mg PO QAM ##90 02/13/17 10/25/23 aspirin 81 mg chewable tablet 81 mg PO QAM 04/22/21 10/25/23 isosorbide mononitrate 30 mg 30 mg PO QAM 05/19/21 10/25/23 tablet,extended release 24 hr alendronate 70 mg tablet (Fosamax) 70 mg PO WK 05/03/22 10/25/23 acetaminophen 500 mg tablet 500 mg PO QID PRN Pain 11/10/22 10/25/23 (Tylenol Extra Strength) apixaban 2.5 mg tablet 2.5 mg PO BID 10/21/23 10/25/23 Previous Rx's Medication Instructions Recorded empagliflozin 10 mg tablet 10 mg PO DAILY #90 tabs 05/13/23 (Jardiance) metoprolol succinate 50 mg 50 mg PO QAM #90 tabs 08/18/23 tablet,extended release 24 hr amiodarone 200 mg tablet 200 mg PO BID #180 tabs 09/13/23 spironolactone 25 mg tablet 25 mg PO DAILY #90 tabs 10/04/23 Results & Data (ED) Vital Signs Vital Signs - 24 hr 10/25/23 09:13 10/25/23 09:16 10/25/23 11:11 Temperature 36.4 C L Temperature Source Oral Pulse Rate 74 37 L Pulse Rate [Apical] 44 L Respiratory Rate 16 16 Respiratory Effort / Characteristics Non-Labored Spontaneous Non-Labored Spontaneous Respiratory Depth Normal Normal Blood Pressure 102/44 L Blood Pressure [Left Arm] 93/45 L Blood Pressure Mean 63 Blood Pressure Mean [Left Arm] 61 Blood Pressure Position Lying Blood Pressure Position [Left Arm] Lying Pulse Oximetry 94 98 Oxygen Delivery Method Room Air Room Air Sepsis Recent Fever Within 48 Hours No Sepsis New/Unexplained Change in Mental Status No Sepsis Action Taken by Nursing No Action Required 10/25/23 11:11 10/25/23 11:14 10/25/23 13:00 Temperature Temperature Source Pulse Rate 43 L Pulse Rate [Apical] 45 L 60 Respiratory Rate 16 16 16 Respiratory Effort / Characteristics Non-Labored Spontaneous Respiratory Depth Normal Blood Pressure Blood Pressure [Left Arm] 104/57 L 80/44 L Blood Pressure Mean Blood Pressure Mean [Left Arm] 72 56 Blood Pressure Position Blood Pressure Position [Left Arm] Sitting Pulse Oximetry 98 98 97 Oxygen Delivery Method Room Air Room Air Room Air Sepsis Recent Fever Within 48 Hours Sepsis New/Unexplained Change in Mental Status Sepsis Action Taken by Nursing Laboratory Data 10/25/23 09:18 10/25/23 09:18 Lab Results 10/25/23 10/25/23 Range/Units 09:18 11:40 WBC 9.63 (4.8-10.8) K/ul RBC 3.43 L (4.20-5.40) M/uL Hgb 9.0 L (12.0-16.0) g/dl Hct 29.9 L (37.0-47.0) % MCV 87.2 (80.0-100.0) fL MCH 26.2 (25.0-34.0) pg MCHC 30.1 L (32.0-36.0) g/dL RDW Std Deviation 46.3 (36.4-46.3) fL RDW Coeff of Debby 15.9 H (11.5-14.5) % Plt Count 166 (130-400) K/uL MPV 11.4 (9.4-12.4) fL Immature Gran % (Auto) 0.8 % Neut % (Auto) 80.8 % Lymph % (Auto) 9.2 % Powell % (Auto) 8.9 % Eos % (Auto) 0.1 % Baso % (Auto) 0.2 % Neut # (Auto) 7.77 H (1.40-6.50) K/uL Lymph # (Auto) 0.89 L (1.20-3.40) K/uL Powell # (Auto) 0.86 H (0.11-0.59) K/uL Eos # (Auto) 0.01 (0.00-0.50) K/uL Baso # (Auto) 0.02 (0.00-0.20) K/uL Immature Gran # (Auto) 0.08 (0.01-0.20) K/uL Sodium 127 L (136-145) mmol/L Potassium 5.8 H (3.5-5.1) mmol/L Chloride 97 L (98-107) mmol/L Carbon Dioxide 24 (21-32) mmol/L Anion Gap 6 (3-11) BUN 65 H (6-23) mg/dl Creatinine 2.62 H (0.6-1.2) mg/dl Est Cr Clr Drug Dosing 12.0 ml/min Est GFR ( Amer) 18.4 ml/min Est GFR (Non-Af Amer) 15.9 ml/min BUN/Creatinine Ratio 24.8 H (10-20) Glucose 84 (70-99(Fasting)) mg/dl Calcium 7.9 L (8.6-10.3) mg/dl Magnesium 2.0 (1.7-2.4) mg/dl Total Bilirubin 0.7 (0.2-1.0) mg/dl AST 117 H (13-39) U/L ALT 113 H (7-52) U/L Alkaline Phosphatase 79 (34-104) U/L Total Creatine Kinase 67 (26-192) U/L Troponin I High Sens 21.9 H 21.5 H (0-14) pg/ml Total Protein 6.6 (6.0-8.3) gm/dl Albumin 3.6 (3.4-5.0) gm/dl Globulin 3.0 (2.5-4.0) gm/dl Albumin/Globulin Ratio 1.2 (0.9-2) Administered Medications Discontinued Medications Acetaminophen (Acetaminophen 325 Mg Tab) 650 mg PO NOW STA Stop: 10/25/23 09:20 Last Admin: 10/25/23 10:22 Dose: 650 mg Documented By: JASMEET Dextrose (Dextrose 50% 50 Ml Syringe) 50 ml IV NOW ONE Stop: 10/25/23 10:54 Last Admin: 10/25/23 12:02 Dose: 50 ml Documented By: ADIEL Calcium Gluconate () 1,000 mg in 60 mls @ 240 mls/hr IV NOW STA Stop: 10/25/23 11:06 Last Infusion: 10/25/23 11:43 Dose: Infused Documented By: Admin: 10/25/23 11:26 Dose: 240 mls/hr Documented By: DIANA Sodium Chloride (Nss) 250 mls @ 999 mls/hr IV .Q16M ONE Stop: 10/25/23 11:07 Last Infusion: 10/25/23 11:43 Dose: Infused Documented By: Admin: 10/25/23 11:24 Dose: 999 mls/hr Documented By: DIANA Ceftriaxone Sodium (Rocephin) 50 mls @ 100 mls/hr IV NOW STA Stop: 10/25/23 11:31 Last Infusion: 10/25/23 12:38 Dose: Infused Documented By: Admin: 10/25/23 12:02 Dose: 100 mls/hr Documented By: ADIEL Metronidazole (Flagyl) 500 mg in 100 mls @ 100 mls/hr IV NOW STA Stop: 10/25/23 12:01 Last Infusion: 10/25/23 13:14 Dose: Infused Documented By: Admin: 10/25/23 12:02 Dose: 100 mls/hr Documented By: ADIEL Insulin Human Regular (Novolin-R Insulin Per Unit Charge) 8 units IV NOW STA Stop: 10/25/23 10:54 Last Admin: 10/25/23 12:03 Dose: 8 units Documented By: ADIEL Co-signed By: HS Sodium Bicarbonate (Sodium Bicarb 8.4% Inj 50 Meq/50 Ml Syr) 50 meq IV NOW STA Stop: 10/25/23 10:53 Last Admin: 10/25/23 11:44 Dose: 50 meq Documented By: DIANA Imaging Data Radiologist's Impression: Cervical Spine CT 10/25/23 09:19 CT OF THE CERVICAL SPINE WITHOUT CONTRAST CLINICAL HISTORY: fall, pain COMPARISON STUDY: Cervical spine CT May 19, 2021. TECHNIQUE: Helical axial images of the cervical spine were obtained without IV contrast. Sagittal and coronal reconstructions were viewed. Automated exposure control was utilized for the study. A dose lowering technique was utilized adhering to the principles of ALARA. FINDINGS: Alignment of the cervical spine is anatomic. Vertebral body heights are maintained. No acute cervical spine fracture or subluxation is present. There is no prevertebral edema. Facet joints are intact. Severe multilevel facet arthrosis and moderate multilevel degenerative disc disease is again noted. IMPRESSION: No acute cervical spine fracture or subluxation. ACT 112: Negative or not required by law. Electronically signed by: Gene Youssef M.D. 10/25/2023 10:[address] 10/25/23 09:19 CT head/brain wo con CLINICAL HISTORY: 87 years-old Female with fall, on eliquis hit head. Acute head trauma status post fall TECHNIQUE: Multiple axial CT images of the head were obtained without contrast. A dose lowering technique was utilized adhering to the principles of ALARA. COMPARISON: CT cervical spine of same day, head CT 07/14/2023 FINDINGS: No acute intracranial hemorrhage, midline shift, intracranial mass, hydrocephalus, territorial ischemia or abnormal extra-axial collection. Involutional changes with chronic microvascular ischemic disease. Cerebral vascular calcifications. The calvarium is intact. The paranasal sinuses, mastoid air cells, and middle ear cavities are clear. IMPRESSION: No acute intracranial abnormality or calvarial fracture. ACT 112: Negative or not required by law. The above report was generated using voice recognition software. It may contain grammatical, syntax or spelling errors. Electronically signed by: Corby Gamez M.D. 10/25/2023 10:12 AM Abdomen/Pelvis CT 10/25/23 09:20 CT OF THE ABDOMEN AND PELVIS WITHOUT CONTRAST CLINICAL HISTORY: fall, right hip pain on eliquis COMPARISON STUDY: CT of the abdomen and pelvis April 07, 2023. TECHNIQUE: Axial images of the abdomen and pelvis were obtained without IV contrast. Images were reviewed in the axial, sagittal, and coronal planes. Automated exposure control was utilized for the study. A dose lowering technique was utilized adhering to the principles of ALARA. FINDINGS: Mild alveolar opacities within the lower lobes are new since prior CT. These are likely infectious. No hemoperitoneum or pneumoperitoneum is present. Evaluation of the solid abdominal viscera is suboptimal on this unenhanced exam. The liver parenchyma is slightly dense. No hepatic lesions are identified. Mild biliary ductal dilatation is unchanged and likely related to cholecystectomy. Unenhanced images of the spleen, adrenal glands, kidneys and pancreas are unremarkable. There is a 3.1 cm infrarenal abdominal aortic aneurysm without evidence for rupture. There is no evidence for a bowel obstruction. There is mild presacral edema. No fluid collections are present. Extensive colonic diverticulosis is present. There is mild stranding and trace fluid adjacent to the ascending colon with mild colonic wall thickening. There is also minimal stranding adjacent to the mid sigmoid colon. There is an acute mildly displaced fracture through the S3 vertebra. No additional acute fractures are present. Healed intertrochanteric fracture of the right femur status post internal fixation is noted. There is no acute fracture. IMPRESSION: 1. Acute mildly displaced fracture through the S3 vertebra. No additional acute fractures. 2. Extensive colonic diverticulosis. Probable acute mild diverticulitis of the ascending colon. Possible acute diverticulitis of the sigmoid colon. No free air. No abscess. 3. Mild alveolar opacities within the lower lungs which favor an infectious process. 4. 3.1 cm infrarenal abdominal aortic aneurysm. ACT 112: Negative or not required by law. Electronically signed by: Gene Youssef M.D. 10/25/2023 10:26 AM Chest X-Ray 10/25/23 09:20 XR chest 1V portable HISTORY: 87 years-old Female fall, legswelling acute chest trauma status post fall COMPARISON: 07/14/2023 TECHNIQUE: AP view of the chest FINDINGS: Cardiac silhouette is enlarged. Coronary arterial stent. Left subclavian pacer. Unchanged left hemidiaphragmatic elevation. Chronic interstitial coarsening without pneumothorax, pleural effusion or airspace consolidation. Chronic appearing right-sided rib fractures redemonstrated. The bones appear grossly intact. Cholecystectomy. IMPRESSION: Cardiomegaly without acute process. ACT 112: Negative or not required by law. The above report was generated using voice recognition software. It may contain grammatical, syntax or spelling errors. Electronically signed by: Corby Gamez M.D. 10/25/2023 9:57 AM Discharge Plan Visit Data Chief Complaint: Fall ED Provider: Van Ching Discharge Problem: Fall, Bradycardia, Acute kidney injury superimposed on CKD, Diverticulitis large intestine Patient Disposition: Being Evaluated by Hospitalist Forms Stand Alone Forms: My [facility] Prescriptions Prescriptions: No Action ezetimibe-simvastatin [Vytorin 10-40] 10-40 mg Tablet 1 tab PO PM Qty: 0 nitroglycerin [Nitrostat] 0.4 mg Tablet, Sublingual 0.4 mg sublingual UD PRN (Reason: Chest Pain) Qty: 0 Rx Instructions: q5 min prn x3 allopurinol 300 mg Tablet 300 mg PO QAM Qty: 90 Jardiance 10 mg tablet 10 mg PO DAILY Qty: 90 3RF metoprolol succinate 50 mg tablet extended release 24 hr 50 mg PO QAM Qty: 90 3RF spironolactone 25 mg tablet 25 mg PO DAILY Qty: 90 3RF alendronate [Fosamax] 70 mg tablet 70 mg PO WK Rx Instructions: TAKE THIS MED EVERY TUESDAY amiodarone 200 mg tablet 200 mg PO BID Qty: 180 3RF aspirin 81 mg tablet,chewable 81 mg PO QAM apixaban 2.5 mg tablet 2.5 mg PO BID isosorbide mononitrate 30 mg tablet extended release 24 hr 30 mg PO QAM Hold Instructions: Resume on 08/02/23. Hold until seen by Cardiology acetaminophen [Tylenol Extra Strength] 500 mg Tablet 500 mg PO QID PRN (Reason: Pain) Referrals Referrals: Fco Vazquez MD [Primary Care Provider] -
[2023-10-25 09:54] LABS: Basophils # (auto) 0.02 K/uL (0.00-0.20); Basophils % (auto) 0.2 %; Eosinophils # (auto) 0.01 K/uL (0.00-0.50); Eosinophils % (auto) 0.1 %; Hematocrit (blood only) 29.9 % (37.0-47.0); Immature Granulocytes # (auto) 0.08 K/uL (0.01-0.20); Immature Granulocytes % (auto) 0.8 %; Lymphocytes # (auto) 0.89 K/uL (1.20-3.40); Lymphocytes % (auto) 9.2 %; Mean Corpuscular Hemoglobin 26.2 pg (25.0-34.0); Mean Corpuscular Hgb Conc 30.1 g/dL (32.0-36.0); Mean Corpuscular Volume 87.2 fL (80.0-100.0); Mean Platelet Volume 11.4 fL (9.4-12.4); Monocytes # (auto) 0.86 K/uL (0.11-0.59); Monocytes % (auto) 8.9 %; Neutrophils # (auto) 7.77 K/uL (1.40-6.50); Neutrophils % (auto) 80.8 %; Platelet Count 166 K/uL (130-400); RDW Coefficient of Variation 15.9 % (11.5-14.5); RDW Standard Deviation 46.3 fL (36.4-46.3); Red Blood Count 3.43 M/uL (4.20-5.40); White Blood Count 9.63 K/ul (4.8-10.8)
--- NOTE | 2023-10-25 09:59 | XRay Report ---
XR chest 1V portable HISTORY: 87 years-old Female fall, legswelling acute chest trauma status post fall COMPARISON: 07/14/2023 TECHNIQUE: AP view of the chest FINDINGS: Cardiac silhouette is enlarged. Coronary arterial stent. Left subclavian pacer. Unchanged left hemidi aphragmatic elevation. Chronic interstitial coarsening without pneumothorax, pleural effusion or airs pace consolidation. Chronic appearing right-sided rib fractures redemonstrated. The bones appear shreya sly intact. Cholecystectomy. IMPRESSION: Cardiomegaly without acute process. ACT 112: Negative or not required by law. The above report was generated using voice recognition software. It may contain grammatical, syntax o r spelling errors. Electronically signed by: Corby Gamez M.D. 10/25/2023 9:57 AM
--- NOTE | 2023-10-25 10:13 | CT Scan Report ---
CT head/brain wo con CLINICAL HISTORY: 87 years-old Female with fall, on eliquis hit head. Acute head trauma status post fall TECHNIQUE: Multiple axial CT images of the head were obtained without contrast. A dose lowering tech nique was utilized adhering to the principles of ALARA. COMPARISON: CT cervical spine of same day, head CT 07/14/2023 FINDINGS: No acute intracranial hemorrhage, midline shift, intracranial mass, hydrocephalus, territorial ischem ia or abnormal extra-axial collection. Involutional changes with chronic microvascular ischemic disea se. Cerebral vascular calcifications. The calvarium is intact. The paranasal sinuses, mastoid air cells, and middle ear cavities are clear . IMPRESSION: No acute intracranial abnormality or calvarial fracture. ACT 112: Negative or not required by law. The above report was generated using voice recognition software. It may contain grammatical, syntax o r spelling errors. Electronically signed by: Corby Gamez M.D. 10/25/2023 10:12 AM
--- NOTE | 2023-10-25 10:19 | CT Scan Report ---
CT OF THE CERVICAL SPINE WITHOUT CONTRAST CLINICAL HISTORY: fall, pain COMPARISON STUDY: Cervical spine CT May 19, 2021. TECHNIQUE: Helical axial images of the cervical spine were obtained without IV contrast. Sagittal a nd coronal reconstructions were viewed. Automated exposure control was utilized for the study. A do se lowering technique was utilized adhering to the principles of ALARA. FINDINGS: Alignment of the cervical spine is anatomic. Vertebral body heights are maintained. No acut e cervical spine fracture or subluxation is present. There is no prevertebral edema. Facet joints are intact. Severe multilevel facet arthrosis and moderate multilevel degenerative disc disease is agai n noted. IMPRESSION: No acute cervical spine fracture or subluxation. ACT 112: Negative or not required by law. Electronically signed by: Gene Youssef M.D. 10/25/2023 10:16 AM
[2023-10-25 10:21] LABS: Albumin Globulin Ratio 1.2 (0.9-2); Albumin Level 3.6 gm/dl (3.4-5.0); BUN Creatinine Ratio 24.8 (10-20); Bilirubin,Total 0.7 mg/dl (0.2-1.0); Calcium 7.9 mg/dl (8.6-10.3); Est GFR (African American) 18.4 ml/min; Est GFR (Non-African American) 15.9 ml/min; Potassium 5.8 mmol/L (3.5-5.1); Total Protein 6.6 gm/dl (6.0-8.3)
[2023-10-25] MEDS: ACETAMINOPHEN 325 MG TAB PO STA (10:22)
[2023-10-25 10:25] LABS: Troponin I High Sensitivity 21.9 pg/ml (0-14)
--- NOTE | 2023-10-25 10:28 | CT Scan Report ---
CT OF THE ABDOMEN AND PELVIS WITHOUT CONTRAST CLINICAL HISTORY: fall, right hip pain on eliquis COMPARISON STUDY: CT of the abdomen and pelvis April 07, 2023. TECHNIQUE: Axial images of the abdomen and pelvis were obtained without IV contrast. Images were revi ewed in the axial, sagittal, and coronal planes. Automated exposure control was utilized for the froilan dy. A dose lowering technique was utilized adhering to the principles of ALARA. FINDINGS: Mild alveolar opacities within the lower lobes are new since prior CT. These are likely inf ectious. No hemoperitoneum or pneumoperitoneum is present. Evaluation of the solid abdominal viscera is suboptimal on this unenhanced exam. The liver parenchyma is slightly dense. No hepatic lesions are identified. Mild biliary ductal dilatation is unchanged and likely related to cholecystectomy. Unenh anced images of the spleen, adrenal glands, kidneys and pancreas are unremarkable. There is a 3.1 cm infrarenal abdominal aortic aneurysm without evidence for rupture. There is no evidence for a bowel o bstruction. There is mild presacral edema. No fluid collections are present. Extensive colonic divert iculosis is present. There is mild stranding and trace fluid adjacent to the ascending colon with mil d colonic wall thickening. There is also minimal stranding adjacent to the mid sigmoid colon. There i s an acute mildly displaced fracture through the S3 vertebra. No additional acute fractures are prese nt. Healed intertrochanteric fracture of the right femur status post internal fixation is noted. Ther e is no acute fracture. IMPRESSION: 1. Acute mildly displaced fracture through the S3 vertebra. No additional acute fractures. 2. Extensive colonic diverticulosis. Probable acute mild diverticulitis of the ascending colon. Possi ble acute diverticulitis of the sigmoid colon. No free air. No abscess. 3. Mild alveolar opacities within the lower lungs which favor an infectious process. 4. 3.1 cm infrarenal abdominal aortic aneurysm. ACT 112: Negative or not required by law. Electronically signed by: Gene Youssef M.D. 10/25/2023 10:26 AM
--- NOTE | 2023-10-25 11:11 | History & Physical Report ---
Date of Service October 25, 2023 Assessment & Plan (1) Fall in home: Plan: Marilia is an 87-year-old female with past medical history of syncope/collapse with ventricular tachycardia CHF, paroxysmal atrial fibrillation, Mobitz 2 heart block s/p dual-chamber pacemaker, hypertension who presents to the ER after she tripped using her walker and fell yesterday without lightheadedness/dizziness/syncope but he was sore and on anticoagulation so presented to the ER for further evaluation. Mechanical fall CThead no acute findings CTC-spine: No acute fracture/subluxation CTA/P: Mildly displaced S3 fracture, diverticulosis with possible mild acute diverticulitis of the ascending colon and possible acute diverticulitis of the sigmoid colon without free air or abscess. 3.1 cm infrarenal abdominal aortic aneurysm noted. Mild alveolar opacities in the lower lungs favoring pneumonia. Patient reports was mechanical and slipped while turning her walker however her son notes that she was very weak on her feet bilaterally without focal deficits. Suspect multifactorial with additional weakness due to potential underlying infection, hypertension, and pacer malfunction Fall precautions (2) Pacemaker malfunction: Plan: Pacer malfunction, history of CAD, CHF, VT, afib, T2 Mobitz 2 HB s/p pacer, - Echo 07/2023: EF 30-35%, apical akinesis and dyskinesis No signs of pulmonary edema, no JVD, clinically volume contracted on admission NSS 500 cc ordered on admission for volume contraction, hyperkalemia, and IGNACIO. Patient is with diverticulitis but does not appear septic, IBW 1500 cc/kg deferred as patient is not septic has a history of heart failure, will rebolus as clinically indicated EKG: Incorrectly reading with a rate of 149, actual rate 50-60. Telemetry reading 40-55 bpm in room. Pacemaker spikes are noted without appropriately conducted beats, this was discussed with cardiology while in the ER will be discussed with Dr. Annabel Davis. Cardiology consulted on admission. Amiodarone continued Metoprolol temporarily held for hypotension and bradycardia while pacemaker is pending evaluation. Patient did take her morning dose and is not due for next dose until 10/25. Resume this DOLLY (3) Hyperkalemia: Plan: Hyperkalemia -Potassium 5.8, fine contracted on admission Spironolactone held, 500 cc NSS given on admit Patient calcium gluconate 1 g, insulin/dextrose, and 1 amp of bicarb while in ER BMP every 4 hours Repeat BMP with increased potassium at 6.5. Patient pacer has in the interval been adjusted and is now pacing at a rate of 60. Lokelma x 1 stat, in addition to 3 times daily ordered. Nephrology consulted. w/ worsening hyperkalemia also recommended giving 1 L of fluid and adding on 40 mg IV Lasix at this time, continue to bolus fluids as clinically indicated. Appreciate recs. (4) Left heart failure: Plan: as noted (5) Chronic kidney disease, stage 3: Plan: IGNACIO on CKD Baseline creatinine less than 1, recently with IGNACIO and elevations up to 2.6 Creatinine remains elevated at 2.6 on admission patient was recently treated with IV fluids and had furosemide and calcium carbonate discontinued due to dehydration + IGNACIO Suspect multifactorial both with volume contraction, spironolactone use, and possible poor forward flow with pacemaker malfunction and resting hypotension/bradycardia. No abdominal pain or UTI symptoms. UA pending. Ur osm, serum osm pending. Clinically volume contracted no signs of pulmonary edema, patient has had diarrhea and poor p.o. intake. Additional 500 cc NSS ordered Spironolactone held for both IGNACIO and hyperkalemia Jardiance held (6) Diverticulitis: Plan: Diverticulitis -Early diverticulitis noted on CT, patient has had 1 episode of nausea/vomiting and 1 episode of diarrhea, although no abdominal pain. Mild, no leukocytosis Covered with Rocephin/Flagyl Patient is with a mild new transaminitis without right upper quadrant pain.? Perfusion transaminitis with hypotension and volume contraction. Trended. CT without acute liver pathology; some biliary ductal dilation likely normal related to s/p cholecystectomy (7) Cough: Plan: Mild x 1 day. No fevers chills or night sweats.? Basilar pneumonia on upper gross of CTA/P. Patient is covered with Rocephin Quad screen ordered. (8) Anemia: Plan: Chronic anemia Hemoglobin ranging 910 0.5, 9.0 on admission. Normocytic Follows with nephrology, no patient for EPO previously Normocytic - No abd tenderness, no GI bleeding, no epistaxis. Pt is on eliquis. 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 pathology results and follow-up note from [facility] requested to confirm History of Present Illness Primary Care Provider: Fco Vazquez MD Marilia is an 87-year-old female with past medical history of syncope/collapse with ventricular tachycardia CHF, paroxysmal atrial fibrillation, Mobitz 2 heart block s/p dual-chamber pacemaker, hypertension who presents to the ER after she tripped using her walker and fell yesterday without lightheadedness/dizziness/syncope but he was sore and on anticoagulation so presented to the ER for further evaluation. Found to have an abnormal EKG, IGNACIO, and hypotension on ER evalJoy Day reports her walker tilted and she fell to the side and hit her side/butt. No lightheeadedness or dizziness. No syncope/presycnope. Son helped her up and noted she seemed weak and unstead, but not lightheaded or confused. Helped her get up and walk to the bathroom, she did OK using the restroom but coming out seemed 'unstable' and weak on both sides. They lifted herup and sat her in a chair, but a pillow under her butt for comfort and she slept OK through the night. Continued to have buttock pain this morning so came inot the ER No chest pain or chest pressure No shortness of breath Just started to have a slight cough since last night, nonproducive No fever, chills, or night sweats Does endorse 1 episode of vomiting a few nights with nausea, no other vomiting THiat episode had no blood or melena. +Diarrhea for the first time around 2-3 nights ago. No bloody or black BMs. No adry colored BMs. Endorses chronic leg/ankle swelling, feels this is actually OK. Feels dehydrated, does not feel fluid overloaded. Is NOT taking lasix Is NOT taking any BILL/ARB/ARNI She IS taking spironolactone Eliquis took this AM Medical History: Reviewed Medications: Reviewed Surgical History: Reviewed Family history: Reviewed Allergies: Reviewed. Social History: No tobacco or ETOH Code Status: DNR/DNI Allergies Allergy/AdvReac Type Severity Reaction Status Date / Time Penicillins Allergy Intermediate Hives; Verified 10/25/23 11:02 SYNCOPE heparin AdvReac Severe Thrombocytopenia; Verified 10/25/23 11:02 NEUTROPENIA Home Medications Medication Instructions Recorded Confirmed Type ezetimibe 10 mg-simvastatin 40 mg 1 tab PO PM ##0 09/19/06 10/25/23 History tablet (Vytorin) nitroglycerin 0.4 mg sublingual 0.4 mg sublingual UD PRN Chest 04/05/13 10/25/23 History tablet (Nitrostat) Pain #0 BTLS allopurinol 300 mg tablet 300 mg PO QAM ##90 02/13/17 10/25/23 History aspirin 81 mg chewable tablet 81 mg PO QAM 04/22/21 10/25/23 History isosorbide mononitrate 30 mg 30 mg PO QAM 05/19/21 10/25/23 History tablet,extended release 24 hr alendronate 70 mg tablet (Fosamax) 70 mg PO WK 05/03/22 10/25/23 History acetaminophen 500 mg tablet 500 mg PO QID PRN Pain 11/10/22 10/25/23 History (Tylenol Extra Strength) empagliflozin 10 mg tablet 10 mg PO DAILY #90 tabs 05/13/23 10/25/23 Rx (Jardiance) metoprolol succinate 50 mg 50 mg PO QAM #90 tabs 08/18/23 10/25/23 Rx tablet,extended release 24 hr amiodarone 200 mg tablet 200 mg PO BID #180 tabs 09/13/23 10/25/23 Rx spironolactone 25 mg tablet 25 mg PO DAILY #90 tabs 10/04/23 10/25/23 Rx apixaban 2.5 mg tablet 2.5 mg PO BID 10/21/23 10/25/23 History Past Med/Surg History Medical History Syncope and collapse Non-ST elevation SD (NSTEMI) Loose stools Hx of pancreatitis Peripheral vascular disease Osteopenia Old myocardial infarct Malignant melanoma of skin Hypercholesterolemia Paroxysmal atrial fibrillation CAD (coronary artery disease) History of pelvic mass Chronic kidney disease, stage 3 Gout Hearing deficit Hypertension Hyperlipidemia Pacemaker Surgical History S/P left inguinal hernia repair (11/18/22) Hx laparoscopic cholecystectomy (11/18/22) S/P cardiac pacemaker procedure S/P ORIF (open reduction internal fixation) fracture S/P trigger finger release History of cochlear implant History of herniorrhaphy History of cholecystectomy History of cataract surgery History of heart artery stent Family History Family/Other Hearing loss Father Heart disease Mother Cancer Other No family history of adverse response to anesthesia No family history of bleeding disorder Denies family history of Ovarian cancer Chronic kidney disease Breast cancer Colorectal cancer Social History Smoking Status: Never smoker Age Started Using Tobacco: 43; Age Quit Using Tobacco: 63; packs per day: 0.5; Cigarettes Per Day: quit 1998; Second Hand Exposure: Yes (hx); Do You Dip or Chew Tobacco: No; Hx Alcohol Use: Yes Alcohol type: wine Alcohol Intake Frequency: Monthly or Less Hx Substance Use: No Preferred Language: American Communication Ability: Effective Visual Impairment: No Limitations Paper Sample Clerk Required: No Beliefs That Will Affect Care: Hoahaoism Hoahaoism Beliefs: Yarsani marital status: / Current Living Situation: Family Current Living Situation Comment: sons How many Children do You have: 5 Feels Safe at Home: Yes Diet: regular during the past year weight has: decreased > 10 lbs Assistive Devices: Cane and Walker Physical Exam Physical Exam: General: A& to name, place. NAD. Cooperative. HEENT: Atraumatic, normocephalic. Pulm: Diminished in the bases. Grossly CTAB A&P. -wheezes, -rales, -rhonchi. Symmetrical chest rise. No increased work of breathing. No respiratory distress. Cardiac: Bradycardic, +sm Radial pulses intact and symmetrical. NO Jvd. Abdominal: Nontender, nondistended, soft. BS present. Ext: +bilateral ankle edema, cool, delayed cap refill bilat, pt pulse intact bilat. Sensation to soft touch intact bilaterally, ankle dorsi/plantarflexion 5/5 bilat Results & Data Results & Data Vital Signs (Past 12 Hours) Vital Signs Temp Pulse Resp BP Pulse Ox O2 Del Method 10/25/23 09:16 37 L 10/25/23 09:13 36.4 C L 74 16 102/44 L 94 Room Air PG Care Time/CCT Total # of Minutes Spent Total Time Spent with Patient: Total time spent is greater than 50% in coordination of care (as documented) at patient's floor/unit and/or counseling patient: Coding Level of Care Code 46395 INT INP/OBS CARE MIN Diagnoses Fall in home W19.XXXA; Y92.009 Pacemaker malfunction T82.111A Hyperkalemia E87.5 Left heart failure I50.1 Chronic kidney disease, stage 3 N18.3 Diverticulitis K57.92 Cough R05.9 Anemia D64.9
[2023-10-25] MEDS: SODIUM CHLORIDE 0.9% 250 ML IV ONE ×2 (11:24→13:20)
[2023-10-25] MEDS: CALCIUM GLUCONATE 1,000 MG/60 ML BAG IV STA (11:26)
[2023-10-25] MEDS: SODIUM BICARB 8.4% INJ 50 MEQ/50 ML SYR IV STA (11:44)
[2023-10-25] MEDS: DEXTROSE 50% 50 ML SYRINGE IV ONE (12:02)
[2023-10-25] MEDS: metroNIDAZOLE 500 MG/100 ML BAG IV STA (12:02)
[2023-10-25] MEDS: NovoLIN-R INSULIN PER UNIT CHARGE IV STA (12:03)
[2023-10-25 12:33] LABS: Troponin I High Sensitivity 21.5 pg/ml (0-14)
[2023-10-25 13:26] LABS: BUN Creatinine Ratio 24.7 (10-20); Creatinine Clr Calc Pharmacy 11.9 ml/min; Est GFR (African American) 18.4 ml/min; Est GFR (Non-African American) 15.8 ml/min; Potassium 6.5 mmol/L (3.5-5.1)
[2023-10-25] MEDS ORDERED: STAT IV/IM STA (13:31)
[2023-10-25] MEDS: SODIUM CHLORIDE 0.9% 500 ML IV ONE ×3 (13:55→23:19)
[2023-10-25] MEDS: SODIUM ZIRCONIUM CYCLOSILICATE 10 GM PACKET PO STA (13:56)
[2023-10-25] MEDS: CALCIUM GLUCONATE 10% 1,000 MG in SODIUM CHLOR 0.9% MINI-B 50 ML IV ONE (14:04)
[2023-10-25 14:15] LABS: Influenza A virus by PCR Negative (Neg); Influenza B virus by PCR Negative (Neg); RSV by PCR Negative (Neg); SARS CoV2 RNA(COVID-19) Ceph NEGATIVE (Negative)
[2023-10-25] MEDS ORDERED: NITROGLYCERIN SL 0.4 MG/TAB TAB SL PRN (14:23)
[2023-10-25 16:29] LABS: Appearance Urine Cloudy (Clear); Bacteria Urine Automated 1+ (Negative); Bilirubin Urine Negative (Negative); Blood Urine 2+ (Negative); Color Urine Yellow; Epithelial Cell Urine Auto >30 /lpf (0-5); Glucose Urine UA 2+ (Negative); Ketones Urine Negative (Negative); Leukocyte Esterase Urine 2+ (Negative); Nitrite Urine Negative (Negative); Protein Urine Trace (Negative); Specific Gravity Urine 1.017 (1.000-1.030); Urobilinogen Urine Negative (Negative)
--- NOTE | 2023-10-25 16:36 | Nephrology Consultation ---
Date of Consultation October 25, 2023 Assessment & Plan (1) Acute kidney injury: * IGNACIO likely on the basis of dehydration * Provide cautious hydration * Monitor PRP * Will order urinalysis * If renal function fails to improve w/ IVF will need renal US (2) Chronic kidney disease with active medical management without dialysis, stage 2 (mild): * CKD stage G2/A3 (moderate impairment). Baseline Cr has been 0.8 w/ EGFR 65 cc/min. Urine sediment has been benign. UPCR 0.6. 06/04 renal US revealed cortical scarring c/w microvascular disease. 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 IV Ca, insulin and dextrose have been administered. Advised scheduling Lokelma. Although patient is clinically volume contracted, recommend one dose Furosemide 40 mg IV x1 to promote diuresis. She is currently being hydrated * Hospitalist service has ordered and will monitor q4 hour PRP (4) Pacemaker malfunction: (5) CAD (coronary artery disease): (6) Paroxysmal atrial fibrillation: History of Present Illness Reason for Consultation: IGNACIO/CKD, hyperkalemia Attending Physician: Aman Holley MD History of Present Illness Ms. Mata is an 87 year old white female who is seen at the request of the [facility] Hospitalist Service for evaluation of IGNACIO/CKD, hyperkalemia. Information for the HPI is obtained from direct patient interview and review of the EMR. HPI is summarized as follows: Ms. Mata has CKD stage G2/A3 (moderate impairment). Baseline Cr has been 0.8 w/ EGFR 65 cc/min. Urine sediment has been benign. UPCR 0.6. 06/04 renal US revealed cortical scarring c/w microvascular disease. 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 In 07/07 Ms. Mata was hospitalized for CHF. Echocardiogram revealed LVEF 30-35%. She was started on Entresto and Spiron olactone. Outpatient follow up at CHF clinic established EDW 110 lbs. Entresto was stopped due to relative hypotension but patient remained on Spironolactone therapy. Ms. Mata suffered a mechanical fall yesterday while using her walker. EMD evaluation was negative for CVA or spinal injury. Abdominal CT revealed a mildly displaced S3 vertebra, extensive colonic diverticulosis and possible bibasilar pneumonia. Creatinine was noted to be elevated at 2.6 and serum potassium 6.5. 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, hypercholesterolemia, gout, osteoporosis, melanoma left forehead (resected), R hip fracture pinned 06/04 Allergies Allergy/AdvReac Type Severity Reaction Status Date / Time Penicillins Allergy Intermediate Hives; Verified 10/25/23 11:02 SYNCOPE heparin AdvReac Severe Thrombocytopenia; Verified 10/25/23 11:02 NEUTROPENIA Home Medications Medication Instructions Recorded Confirmed Type ezetimibe 10 mg-simvastatin 40 mg 1 tab PO PM ##0 09/19/06 10/25/23 History tablet (Vytorin) nitroglycerin 0.4 mg sublingual 0.4 mg sublingual UD PRN Chest 04/05/13 10/25/23 History tablet (Nitrostat) Pain #0 BTLS allopurinol 300 mg tablet 300 mg PO QAM ##90 02/13/17 10/25/23 History aspirin 81 mg chewable tablet 81 mg PO QAM 04/22/21 10/25/23 History isosorbide mononitrate 30 mg 30 mg PO QAM 05/19/21 10/25/23 History tablet,extended release 24 hr alendronate 70 mg tablet (Fosamax) 70 mg PO WK 05/03/22 10/25/23 History acetaminophen 500 mg tablet 500 mg PO QID PRN Pain 11/10/22 10/25/23 History (Tylenol Extra Strength) empagliflozin 10 mg tablet 10 mg PO DAILY #90 tabs 05/13/23 10/25/23 Rx (Jardiance) metoprolol succinate 50 mg 50 mg PO QAM #90 tabs 08/18/23 10/25/23 Rx tablet,extended release 24 hr amiodarone 200 mg tablet 200 mg PO BID #180 tabs 09/13/23 10/25/23 Rx spironolactone 25 mg tablet 25 mg PO DAILY #90 tabs 10/04/23 10/25/23 Rx apixaban 2.5 mg tablet 2.5 mg PO BID 10/21/23 10/25/23 History Patient History Medical History Syncope and collapse Non-ST elevation NC (NSTEMI) Loose stools Hx of pancreatitis Peripheral vascular disease Osteopenia 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, "treated" Hypercholesterolemia Paroxysmal atrial fibrillation follows w/Dr Springer CAD (coronary artery disease) stent x1 (1998) History of pelvic mass Chronic kidney disease, stage 3 Gout Hearing deficit bilateral hearing aids Hypertension Hyperlipidemia Pacemaker [employer], last checked 07/2022 Surgical History S/P left inguinal hernia repair (11/18/22) Open Left Inguinal Hernia Repair with Mesh(Left) - Je Quijano DO Hx laparoscopic cholecystectomy (11/18/22) Open Left Inguinal Hernia Repair with Mesh(Left) - Je Quijano DO S/P cardiac pacemaker procedure S/P ORIF (open reduction internal fixation) fracture right hip S/P trigger finger release History of cochlear implant since removed History of herniorrhaphy Open RIH repair with mesh 08-26-2016 Dr. Quijano History of cholecystectomy History of cataract surgery b/l History of heart artery stent 1998- x 1 stent [facility] [place] Family History Family/Other Hearing loss Father Heart disease Mother Cancer type not documented on new patient form Other No family history of adverse response to anesthesia No family history of bleeding disorder Denies family history of Ovarian cancer Chronic kidney disease Breast cancer Colorectal cancer Social History Smoking Status: Former smoker Age Started Using Tobacco: 43; Age Quit Using Tobacco: 63; packs per day: 0.5; Cigarettes Per Day: quit 1998; Second Hand Exposure: Yes (hx); Do You Dip or Chew Tobacco: No; Hx Alcohol Use: Yes Alcohol type: wine Alcohol Intake Frequency: Monthly or Less Hx Substance Use: No Preferred Language: Hebrew Communication Ability: Effective Visual Impairment: No Limitations Lna Required: No Beliefs That Will Affect Care: None marital status: / Current Living Situation: Family Current Living Situation Comment: sons How many Children do You have: 5 Feels Safe at Home: Yes Diet: regular during the past year weight has: decreased > 10 lbs Assistive Devices: Cane, Glasses and Walker Review of Systems Constitutional: no fever Eyes: no problem reported Ear, Nose, Mouth, Throat: no problem reported Respiratory: no cough and no dyspnea Cardiovascular: no chest pain Gastrointestinal: no abdominal pain Physical Exam Constitutional: + frail appearing Eyes: PERRL, conjunctivae normal, anicteric sclerae ENMT: Mouth: + dry oral mucous membranes Neck: trachea midline, no thyromegaly Respiratory: no respiratory distress (diminished breath sounds at bases ) Cardiovascular: Rate/Rhythm: + bradycardic Gastrointestinal (Abdomen): normal bowel sounds, soft, nontender, no hepatosplenomegaly Skin: + turgor decreased Neurologic: Speech / Cognition: normal speech and normal cognition Results & Data Vital Signs (Past 12 Hours) Vital Signs Temp Pulse Pulse Resp BP BP Pulse Ox 10/25/23 15:47 10/25/23 15:47 60 20 94/59 L 98 10/25/23 14:40 10/25/23 14:40 60 18 94/59 L 98 10/25/23 14:20 64 10/25/23 13:59 60 19 82/44 L 98 10/25/23 13:00 60 16 80/44 L 97 10/25/23 11:14 45 L 16 104/57 L 98 10/25/23 11:11 43 L 16 98 10/25/23 11:11 44 L 16 93/45 L 98 10/25/23 09:16 37 L 10/25/23 09:13 36.4 C L 74 16 102/44 L 94 Pulse Ox O2 Del Method O2 Del Method 10/25/23 15:47 Room Air 10/25/23 15:47 Room Air 10/25/23 14:40 98 Room Air 10/25/23 14:40 Room Air 10/25/23 14:20 10/25/23 13:59 Room Air 10/25/23 13:00 Room Air 10/25/23 11:14 Room Air 10/25/23 11:11 Room Air 10/25/23 11:11 Room Air 10/25/23 09:16 10/25/23 09:13 Room Air Laboratory Results Laboratory Results WBC 9.63 K/ul (4.8-10.8) 10/25/23 09:18 RBC 3.43 M/uL (4.20-5.40) L 10/25/23 09:18 Hgb 9.0 g/dl (12.0-16.0) L 10/25/23 09:18 Hct 29.9 % (37.0-47.0) L 10/25/23 09:18 MCV 87.2 fL (80.0-100.0) 10/25/23 09:18 MCH 26.2 pg (25.0-34.0) 10/25/23 09:18 MCHC 30.1 g/dL (32.0-36.0) L 10/25/23 09:18 RDW Std Deviation 46.3 fL (36.4-46.3) 10/25/23 09:18 RDW Coeff of Debby 15.9 % (11.5-14.5) H 10/25/23 09:18 Plt Count 166 K/uL (130-400) 10/25/23 09:18 MPV 11.4 fL (9.4-12.4) 10/25/23 09:18 Immature Gran % (Auto) 0.8 % 10/25/23 09:18 Neut % (Auto) 80.8 % 10/25/23 09:18 Lymph % (Auto) 9.2 % 10/25/23 09:18 [place] % (Auto) 8.9 % 10/25/23 09:18 Eos % (Auto) 0.1 % 10/25/23 09:18 Baso % (Auto) 0.2 % 10/25/23 09:18 Neut # (Auto) 7.77 K/uL (1.40-6.50) H 10/25/23 09:18 Lymph # (Auto) 0.89 K/uL (1.20-3.40) L 10/25/23 09:18 Pine # (Auto) 0.86 K/uL (0.11-0.59) H 10/25/23 09:18 Eos # (Auto) 0.01 K/uL (0.00-0.50) 10/25/23 09:18 Baso # (Auto) 0.02 K/uL (0.00-0.20) 10/25/23 09:18 Immature Gran # (Auto) 0.08 K/uL (0.01-0.20) 10/25/23 09:18 Sodium 129 mmol/L (136-145) L 10/25/23 11:40 Potassium 6.5 mmol/L (3.5-5.1) H* 10/25/23 11:40 Chloride 99 mmol/L (98-107) 10/25/23 11:40 Carbon Dioxide 22 mmol/L (21-32) 10/25/23 11:40 Anion Gap 8 (3-11) 10/25/23 11:40 BUN 65 mg/dl (6-23) H 10/25/23 11:40 Creatinine 2.63 mg/dl (0.6-1.2) H 10/25/23 11:40 Est Cr Clr Drug Dosing 11.9 ml/min 10/25/23 11:40 Est GFR ( Amer) 18.4 ml/min 10/25/23 11:40 Est GFR (Non-Af Amer) 15.8 ml/min 10/25/23 11:40 BUN/Creatinine Ratio 24.7 (10-20) H 10/25/23 11:40 Glucose 72 mg/dl (70-99(Fasting)) 10/25/23 11:40 Osmolality 290 mOsm/kg (280-300) 10/25/23 09:18 Calcium 8.0 mg/dl (8.6-10.3) L 10/25/23 11:40 Magnesium 2.0 mg/dl (1.7-2.4) 10/25/23 11:40 Total Bilirubin 0.7 mg/dl (0.2-1.0) 10/25/23 09:18 AST 117 U/L (13-39) H 10/25/23 09:18 ALT 113 U/L (7-52) H 10/25/23 09:18 Alkaline Phosphatase 79 U/L (34-104) 10/25/23 09:18 Total Creatine Kinase 67 U/L (26-192) 10/25/23 09:18 Troponin I High Sens 21.5 pg/ml (0-14) H 10/25/23 11:40 B-Natriuretic Peptide 850 pg/ml (0-100) H 10/25/23 09:18 Total Protein 6.6 gm/dl (6.0-8.3) 10/25/23 09:18 Albumin 3.6 gm/dl (3.4-5.0) 10/25/23 09:18 Globulin 3.0 gm/dl (2.5-4.0) 10/25/23 09:18 Albumin/Globulin Ratio 1.2 (0.9-2) 10/25/23 09:18 Urine Color Yellow 10/25/23 16:08 Urine Appearance Cloudy (Clear) A 10/25/23 16:08 Urine pH 6.0 (4.5-7.5) 10/25/23 16:08 Ur Specific [place] 1.017 (1.000-1.030) 10/25/23 16:08 Urine Protein Trace (Negative) H 10/25/23 16:08 Urine Glucose (UA) 2+ (Negative) H 10/25/23 16:08 Urine Ketones Negative (Negative) 10/25/23 16:08 Urine Blood 2+ (Negative) H 10/25/23 16:08 Urine Nitrite Negative (Negative) 10/25/23 16:08 Urine Bilirubin Negative (Negative) 10/25/23 16:08 Urine Urobilinogen Negative (Negative) 10/25/23 16:08 Ur Leukocyte Esterase 2+ (Negative) H 10/25/23 16:08 Urine WBC (Auto) 5-10 /hpf (0-5) H 10/25/23 16:08 Urine RBC (Auto) 0-4 /hpf (0-4) 10/25/23 16:08 U Hyaline Cast (Auto) 1-5 /lpf (0-5) 10/25/23 16:08 U Epithel Cells (Auto) >30 /lpf (0-5) H 10/25/23 16:08 Urine Bacteria (Auto) 1+ (Negative) H 10/25/23 16:08 Urine Yeast Not Reportable 10/25/23 16:08 Urine Osmolality 458 mOsm/kg (500-800) L 10/25/23 16:08 Ur Random Sodium 43 mmol/L 10/25/23 16:08 SARS-CoV-2 (PCR) NEGATIVE (Negative) 10/25/23 Unknown Influenza Type A (PCR) Negative (Neg) 10/25/23 Unknown Influenza Type B (PCR) Negative (Neg) 10/25/23 Unknown RSV (RT-PCR) Negative (Neg) 10/25/23 Unknown Impressions Cervical Spine CT 10/25/23 09:19 CT OF THE CERVICAL SPINE WITHOUT CONTRAST CLINICAL HISTORY: fall, pain COMPARISON STUDY: Cervical spine CT May 19, 2021. TECHNIQUE: Helical axial images of the cervical spine were obtained without IV contrast. Sagittal and coronal reconstructions were viewed. Automated exposure control was utilized for the study. A dose lowering technique was utilized adhering to the principles of ALARA. FINDINGS: Alignment of the cervical spine is anatomic. Vertebral body heights are maintained. No acute cervical spine fracture or subluxation is present. There is no prevertebral edema. Facet joints are intact. Severe multilevel facet arthrosis and moderate multilevel degenerative disc disease is again noted. IMPRESSION: No acute cervical spine fracture or subluxation. ACT 112: Negative or not required by law. Electronically signed by: Gene Youssef M.D. 10/25/2023 10:[address] 10/25/23 09:19 CT head/brain wo con CLINICAL HISTORY: 87 years-old Female with fall, on eliquis hit head. Acute head trauma status post fall TECHNIQUE: Multiple axial CT images of the head were obtained without contrast. A dose lowering technique was utilized adhering to the principles of ALARA. COMPARISON: CT cervical spine of same day, head CT 07/14/2023 FINDINGS: No acute intracranial hemorrhage, midline shift, intracranial mass, hydrocephalus, territorial ischemia or abnormal extra-axial collection. Involutional changes with chronic microvascular ischemic disease. Cerebral vascular calcifications. The calvarium is intact. The paranasal sinuses, mastoid air cells, and middle ear cavities are clear. IMPRESSION: No acute intracranial abnormality or calvarial fracture. ACT 112: Negative or not required by law. The above report was generated using voice recognition software. It may contain grammatical, syntax or spelling errors. Electronically signed by: Corby Gamez M.D. 10/25/2023 10:12 AM Abdomen/Pelvis CT 10/25/23 09:20 CT OF THE ABDOMEN AND PELVIS WITHOUT CONTRAST CLINICAL HISTORY: fall, right hip pain on eliquis COMPARISON STUDY: CT of the abdomen and pelvis April 07, 2023. TECHNIQUE: Axial images of the abdomen and pelvis were obtained without IV contrast. Images were reviewed in the axial, sagittal, and coronal planes. Automated exposure control was utilized for the study. A dose lowering technique was utilized adhering to the principles of ALARA. FINDINGS: Mild alveolar opacities within the lower lobes are new since prior CT. These are likely infectious. No hemoperitoneum or pneumoperitoneum is present. Evaluation of the solid abdominal viscera is suboptimal on this unenhanced exam. The liver parenchyma is slightly dense. No hepatic lesions are identified. Mild biliary ductal dilatation is unchanged and likely related to cholecystectomy. Unenhanced images of the spleen, adrenal glands, kidneys and pancreas are unremarkable. There is a 3.1 cm infrarenal abdominal aortic aneurysm without evidence for rupture. There is no evidence for a bowel obstruction. There is mild presacral edema. No fluid collections are present. Extensive colonic diverticulosis is present. There is mild stranding and trace fluid adjacent to the ascending colon with mild colonic wall thickening. There is also minimal stranding adjacent to the mid sigmoid colon. There is an acute mildly displaced fracture through the S3 vertebra. No additional acute fractures are present. Healed intertrochanteric fracture of the right femur status post internal fixation is noted. There is no acute fracture. IMPRESSION: 1. Acute mildly displaced fracture through the S3 vertebra. No additional acute fractures. 2. Extensive colonic diverticulosis. Probable acute mild diverticulitis of the ascending colon. Possible acute diverticulitis of the sigmoid colon. No free air. No abscess. 3. Mild alveolar opacities within the lower lungs which favor an infectious process. 4. 3.1 cm infrarenal abdominal aortic aneurysm. ACT 112: Negative or not required by law. Electronically signed by: Gene Youssef M.D. 10/25/2023 10:26 AM Chest X-Ray 10/25/23 09:20 XR chest 1V portable HISTORY: 87 years-old Female fall, legswelling acute chest trauma status post fall COMPARISON: 07/14/2023 TECHNIQUE: AP view of the chest FINDINGS: Cardiac silhouette is enlarged. Coronary arterial stent. Left subclavian pacer. Unchanged left hemidiaphragmatic elevation. Chronic interstitial coarsening without pneumothorax, pleural effusion or airspace consolidation. Chronic appearing right-sided rib fractures redemonstrated. The bones appear grossly intact. Cholecystectomy. IMPRESSION: Cardiomegaly without acute process. ACT 112: Negative or not required by law. The above report was generated using voice recognition software. It may contain grammatical, syntax or spelling errors. Electronically signed by: Corby Gamez M.D. 10/25/2023 9:57 AM PG Care Time/CCT Total # of Minutes Spent Total Time Spent with Patient: Total time spent is greater than 50% in coordination of care (as documented) at patient's floor/unit and/or counseling patient: Coding Level of Care Code 64397 IN/OBS CONSULT LVL 5,80M Diagnoses Acute kidney injury N17.9 Chronic kidney disease with active medical management without dialysis, stage 2 (mild) N18.2 Hyperkalemia E87.5 Pacemaker malfunction T82.111A CAD (coronary artery disease) I25.10 Paroxysmal atrial fibrillation I48.0
[2023-10-25 16:42] LABS: RBC Urine Automated 0-4 /hpf (0-4)
--- NOTE | 2023-10-25 17:06 | Cardiology Consultation ---
Date of Consultation October 25, 2023 Assessment & Plan (1) Pacemaker malfunction: (2) Hyperkalemia: Plan 1. Pacemaker loss of capture: Her ventricular pacemaker measurements have not been ideal in the past, they are worse today which may be a function of hyperkalemia and perhaps other metabolic abnormalities from hypotension. We were able to obtain capture by increasing her pacing output to the maximum. This may not be terribly reliable and we should plan on pacemaker lead revision, which will be somewhat difficult given her complex pacing history. I am hesitant to do that tomorrow with her other abnormalities. 2. Hyperkalemia, increasing creatinine: Some of this could be due to poor cardiac output from poor pacemaker function. I do not know how long she has had her current rhythm (the pacemaker cannot monitor for it as it does not recognize it), this could certainly reduce her cardiac output substantially. Now with appropriate pacing hopefully that will not be an issue. I would not I was not able to do that regard to to try to make that History of Present Illness Reason for Consultation: Pacemaker malfunction Attending Physician: Aman Holley MD History of Present Illness This is an 87-year-old woman with a history of hypertension, hyperlipidemia as well as coronary artery disease and paroxysmal atrial fibrillation. She also has a dual-chamber pacemaker in place. Her cardiovascular history is notable for an acute myocardial infarction in April 1999 with stent placement, she is left with an ischemic cardiomyopathy which has fluctuated somewhat over the years, most recently on July 2023 reported as 30 to 35%. More recently she was hospitalized from July 14, 2023 through July 19, 2023 when she presented with syncope and congestive heart failure. Pacemaker interrogation showed atrial fibrillation for several months as well as 1 episode of ventricular tachycardia in the monitor zone. She was started on amiodarone that visit. I believe her initial device was implanted June 16, 2000, that included the right ventricle and atrial lead however the atrial lead was replaced on January 02, 2019. I did that procedure and reading my note it sounds like it was a difficult procedure and we were unable to replace the ventricular lead, which had somewhat marginal thresholds even at that time. We elected to keep that lead in place and she has done relatively well since with an elevated but stable pacing threshold. As of July 14, 2023 her right ventricular pacing threshold was programmed to 6 V at 1 ms, I believe the pacing threshold on October 21, 2023 was 3.5 V at 1.3 ms. She presented to the emergency room today after a fall, apparently she was using her wheeled walker when she fell to the right. She feels that she did not lose consciousness but did hit her head. She has not been feeling well for the last several days with some peripheral edema and numbness and tingling in her extremities. Allergies Allergy/AdvReac Type Severity Reaction Status Date / Time Penicillins Allergy Intermediate Hives; Verified 10/25/23 11:02 SYNCOPE heparin AdvReac Severe Thrombocytopenia; Verified 10/25/23 11:02 NEUTROPENIA Home Medications Medication Instructions Recorded Confirmed Type ezetimibe 10 mg-simvastatin 40 mg 1 tab PO PM ##0 09/19/06 10/25/23 History tablet (Vytorin) nitroglycerin 0.4 mg sublingual 0.4 mg sublingual UD PRN Chest 04/05/13 10/25/23 History tablet (Nitrostat) Pain #0 BTLS allopurinol 300 mg tablet 300 mg PO QAM ##90 02/13/17 10/25/23 History aspirin 81 mg chewable tablet 81 mg PO QAM 04/22/21 10/25/23 History isosorbide mononitrate 30 mg 30 mg PO QAM 05/19/21 10/25/23 History tablet,extended release 24 hr alendronate 70 mg tablet (Fosamax) 70 mg PO WK 05/03/22 10/25/23 History acetaminophen 500 mg tablet 500 mg PO QID PRN Pain 11/10/22 10/25/23 History (Tylenol Extra Strength) empagliflozin 10 mg tablet 10 mg PO DAILY #90 tabs 05/13/23 10/25/23 Rx (Jardiance) metoprolol succinate 50 mg 50 mg PO QAM #90 tabs 08/18/23 10/25/23 Rx tablet,extended release 24 hr amiodarone 200 mg tablet 200 mg PO BID #180 tabs 09/13/23 10/25/23 Rx spironolactone 25 mg tablet 25 mg PO DAILY #90 tabs 10/04/23 10/25/23 Rx apixaban 2.5 mg tablet 2.5 mg PO BID 10/21/23 10/25/23 History Patient History Medical History Syncope and collapse Non-ST elevation [place] (NSTEMI) Loose stools Hx of pancreatitis Peripheral vascular disease Osteopenia 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, "treated" Hypercholesterolemia Paroxysmal atrial fibrillation follows w/Dr Springer CAD (coronary artery disease) stent x1 (1998) History of pelvic mass Chronic kidney disease, stage 3 Gout Hearing deficit bilateral hearing aids Hypertension Hyperlipidemia Pacemaker [employer], last checked 07/2022 Surgical History S/P left inguinal hernia repair (11/18/22) Open Left Inguinal Hernia Repair with Mesh(Left) - Je Quijano, DO Hx laparoscopic cholecystectomy (11/18/22) Open Left Inguinal Hernia Repair with Mesh(Left) - Je Quijano DO S/P cardiac pacemaker procedure S/P ORIF (open reduction internal fixation) fracture right hip S/P trigger finger release History of cochlear implant since removed History of herniorrhaphy Open RIH repair with mesh 08-26-2016 Dr. Quijano History of cholecystectomy History of cataract surgery b/l History of heart artery stent 1998- x 1 stent [facility] Family History Family/Other Hearing loss Father Heart disease Mother Cancer type not documented on new patient form Other No family history of adverse response to anesthesia No family history of bleeding disorder Denies family history of Ovarian cancer Chronic kidney disease Breast cancer Colorectal cancer Social History Smoking Status: Former smoker Age Started Using Tobacco: 43; Age Quit Using Tobacco: 63; packs per day: 0.5; Cigarettes Per Day: quit 1998; Second Hand Exposure: Yes (hx); Do You Dip or Chew Tobacco: No; Hx Alcohol Use: Yes Alcohol type: wine Alcohol Intake Frequency: Monthly or Less Hx Substance Use: No Preferred Language: Malian Communication Ability: Effective Visual Impairment: No Limitations Diesel Engine Inspector Required: No Beliefs That Will Affect Care: None marital status: / Current Living Situation: Family Current Living Situation Comment: sons How many Children do You have: 5 Feels Safe at Home: Yes Diet: regular during the past year weight has: decreased > 10 lbs Assistive Devices: Cane and Walker Physical Exam Physical Exam: Constitutional: Alert, cooperative and in no distress. HEENT: Unremarkable Neck: No jugular venous distention, carotid pulses are normal and equal bilaterally without bruits. Pulmonary: Clear to auscultation bilaterally. Cardiac: Regular rhythm with no murmur, gallop or rub. Abdomen: Soft, nontender with normal bowel sounds. Extremities: No edema. Distal pulses intact. Neurologic: No focal findings. Skin: The device site is well-healed without erythema, swelling or tenderness. No rash, ecchymoses or petechiae. Results & Data Vital Signs (Past 12 Hours) Vital Signs Temp Pulse Pulse Resp BP BP Pulse Ox 10/25/23 15:47 10/25/23 15:47 60 20 94/59 L 98 10/25/23 14:40 10/25/23 14:40 60 18 94/59 L 98 10/25/23 14:20 64 10/25/23 13:59 60 19 82/44 L 98 10/25/23 13:00 60 16 80/44 L 97 10/25/23 11:14 45 L 16 104/57 L 98 10/25/23 11:11 43 L 16 98 10/25/23 11:11 44 L 16 93/45 L 98 10/25/23 09:16 37 L 10/25/23 09:13 36.4 C L 74 16 102/44 L 94 Pulse Ox O2 Del Method O2 Del Method 10/25/23 15:47 Room Air 10/25/23 15:47 Room Air 10/25/23 14:40 98 Room Air 10/25/23 14:40 Room Air 10/25/23 14:20 10/25/23 13:59 Room Air 10/25/23 13:00 Room Air 10/25/23 11:14 Room Air 10/25/23 11:11 Room Air 10/25/23 11:11 Room Air 10/25/23 09:16 10/25/23 09:13 Room Air Laboratory Results Cardiac Enzymes 10/25/23 10/25/23 Range/Units 09:18 11:40 AST 117 H (13-39) U/L Troponin I High Sens 21.9 H 21.5 H (0-14) pg/ml B-Natriuretic Peptide 850 H (0-100) pg/ml Coagulation 10/25/23 Range/Units 09:18 B-Natriuretic Peptide 850 H (0-100) pg/ml CBC 10/25/23 Range/Units 09:18 WBC 9.63 (4.8-10.8) K/ul RBC 3.43 L (4.20-5.40) M/uL Hgb 9.0 L (12.0-16.0) g/dl Hct 29.9 L (37.0-47.0) % Plt Count 166 (130-400) K/uL Neut # (Auto) 7.77 H (1.40-6.50) K/uL Lymph # (Auto) 0.89 L (1.20-3.40) K/uL Turner # (Auto) 0.86 H (0.11-0.59) K/uL Eos # (Auto) 0.01 (0.00-0.50) K/uL Baso # (Auto) 0.02 (0.00-0.20) K/uL Comprehensive Metabolic Panel 10/25/23 10/25/23 Range/Units 09:18 11:40 Sodium 127 L 129 L (136-145) mmol/L Potassium 5.8 H 6.5 H* (3.5-5.1) mmol/L Chloride 97 L 99 (98-107) mmol/L Carbon Dioxide 24 22 (21-32) mmol/L BUN 65 H 65 H (6-23) mg/dl Creatinine 2.62 H 2.63 H (0.6-1.2) mg/dl Glucose 84 72 (70-99(Fasting)) mg/dl Calcium 7.9 L 8.0 L (8.6-10.3) mg/dl AST 117 H (13-39) U/L ALT 113 H (7-52) U/L Alkaline Phosphatase 79 (34-104) U/L Total Protein 6.6 (6.0-8.3) gm/dl Albumin 3.6 (3.4-5.0) gm/dl Intake and Output 10/25/23 10/25/23 10/25/23 06:59 14:59 22:59 Intake Total 1769 / 1769 Balance 1769 Intake: IV 1769 Calcium Gluconate 1,000 mg In 60 / 60 60 ml @ 240 mls/hr IV NOW STA Rx#:[id number] Calcium Gluconate 10% 1,000 mg 60 / 60 In Sodium Chlor 0.9% Mini-B 50 ml @ 240 mls/hr IV NOW ONE Rx#: [id number] Sodium Chloride 0.9% 500 ml @ 1250 / 1250 999 mls/hr IV .Q31M ONE Rx#: [id number] Sodium Chloride 0.9% 250 ml @ 250 / 250 999 mls/hr IV .Q16M ONE Rx#: [id number] cefTRIAXone SODIUM 50 ml @ 100 50 / 50 mls/hr IV NOW STA Rx#:[id number] metroNIDAZOLE 500 mg In 100 ml 100 / 100 @ 100 mls/hr IV NOW STA Rx#: [id number] Other: Weight 49.3 kg 49.5 kg Weight Measurement Method [facility] Stated by Patient Patient Weight 10/26/23 06:59 Weight 49.5 kg Diagnostic Findings Presenting electrocardiogram: The fundamental rhythm appears to be a ventricular escape rhythm which is very wide, there is retrograde atrial activation which is since by the pacemaker resulting in a ventricular pacing output which does not capture. This results in a slow very wide electrical complex which most likely significantly affects her cardiac output. Pacemaker interrogation: The device itself is working well, the right ventricular lead threshold increased significantly although by increasing the pacemaker to full output capture could be obtained. Battery voltage is approaching replacement time but is still acceptable. PG Care Time/CCT Total # of Minutes Spent Total Time Spent with Patient: Total time spent is greater than 50% in coordination of care (as documented) at patient's floor/unit and/or counseling patient: Coding Level of Care Code 21623 INT INP/OBS CARE 3/75MIN Diagnoses Pacemaker malfunction T82.111A Hyperkalemia E87.5
--- NOTE | 2023-10-25 17:16 | XCELERA ---
[id number] \\[id number]
[2023-10-25] MEDS: SODIUM CHLORIDE 0.9% 500 ML IV SCH (17:19)
[2023-10-25 18:20] LABS: BUN Creatinine Ratio 24.3 (10-20); Calcium 7.7 mg/dl (8.6-10.3); Est GFR (African American) 20.2 ml/min; Est GFR (Non-African American) 17.4 ml/min; Potassium 4.5 mmol/L (3.5-5.1)
[2023-10-25] MEDS: metroNIDAZOLE 500 MG/100 ML BAG IV SCH (20:01)
[2023-10-25] MEDS: AMIODARONE 200 MG TAB PO SCH (20:06)
[2023-10-25] MEDS: APIXABAN 2.5 MG TAB PO SCH (20:08)
[2023-10-25] MEDS: EZETIMIBE 10 MG TAB PO SCH (20:08)
[2023-10-25] MEDS: SIMVASTATIN 40 MG TAB PO SCH (20:09)
[2023-10-25] MEDS: SODIUM ZIRCONIUM CYCLOSILICATE 10 GM PACKET PO SCH (20:11)
[2023-10-25] MEDS ORDERED: Nursing to Pharmacy Communication SCH (20:30)
[2023-10-25] MEDS ORDERED: EZETIMIBE/SIMVASTATIN 10/40MG TAB PO SCH (21:00)
[2023-10-25 22:00] LABS: BUN Creatinine Ratio 23.7 (10-20); Calcium 7.4 mg/dl (8.6-10.3); Creatinine Clr Calc Pharmacy 12.7 ml/min; Est GFR (African American) 19.6 ml/min; Est GFR (Non-African American) 16.9 ml/min; Potassium 4.8 mmol/L (3.5-5.1)
[2023-10-26 01:36] LABS: BUN Creatinine Ratio 22.4 (10-20); Calcium 7.1 mg/dl (8.6-10.3); Creatinine Clr Calc Pharmacy 12.9 ml/min; Est GFR (Non-African American) 17.3 ml/min; Potassium 4.8 mmol/L (3.5-5.1)
[2023-10-26] MEDS: SODIUM ZIRCONIUM CYCLOSILICATE 10 GM PACKET PO SCH (06:37)
[2023-10-26 07:09] LABS: Basophils # (auto) 0.01 K/uL (0.00-0.20); Basophils % (auto) 0.2 %; Eosinophils # (auto) 0.01 K/uL (0.00-0.50); Eosinophils % (auto) 0.2 %; Hematocrit (blood only) 25.9 % (37.0-47.0); Hemoglobin 7.8 g/dl (12.0-16.0); Immature Granulocytes # (auto) 0.05 K/uL (0.01-0.20); Immature Granulocytes % (auto) 0.8 %; Mean Corpuscular Hemoglobin 25.3 pg (25.0-34.0); Mean Corpuscular Hgb Conc 30.1 g/dL (32.0-36.0); Mean Corpuscular Volume 84.1 fL (80.0-100.0); Mean Platelet Volume 10.6 fL (9.4-12.4); Monocytes # (auto) 0.54 K/uL (0.11-0.59); Neutrophils # (auto) 4.77 K/uL (1.40-6.50); Neutrophils % (auto) 79.8 %; Platelet Count 116 K/uL (130-400); RDW Coefficient of Variation 15.3 % (11.5-14.5); RDW Standard Deviation 46.6 fL (36.4-46.3); Red Blood Count 3.08 M/uL (4.20-5.40); White Blood Count 5.98 K/ul (4.8-10.8)
[2023-10-26 07:27] LABS: Ovalocytes 1+; Polychromasia 1+; Tear Drop Cells 1+
[2023-10-26 07:36] LABS: Albumin Level 2.7 gm/dl (3.4-5.0); BUN Creatinine Ratio 23.2 (10-20); Bilirubin Direct 0.1 mg/dl (0-0.2); Bilirubin,Total 0.3 mg/dl (0.2-1.0); Calcium 7.1 mg/dl (8.6-10.3); Creatinine Clr Calc Pharmacy 14.3 ml/min; Creatinine Clr Calc Pharmacy 14.5 ml/min; Est GFR (African American) 23.7 ml/min; Est GFR (Non-African American) 20.4 ml/min; Est GFR (Non-African American) 20.7 ml/min; Magnesium 1.7 mg/dl (1.7-2.4); Potassium 4.5 mmol/L (3.5-5.1); Potassium 4.7 mmol/L (3.5-5.1); Total Protein 5.2 gm/dl (6.0-8.3)
[2023-10-26] MEDS: allopurinoL 300 MG TAB PO SCH (08:08)
[2023-10-26] MEDS: ISOSORBIDE MONO EXTENDED REL 30 MG TABCR PO SCH (08:08)
[2023-10-26] MEDS: ASPIRIN 81 MG CHEW PO SCH (08:08)
[2023-10-26] MEDS: METOPROLOL SUCC 50MG EXT REL TAB PO SCH (08:09)
--- NOTE | 2023-10-26 08:25 | Cardiology Progress Note ---
Date of Service October 26, 2023 Assessment & Plan (1) Pacemaker malfunction: (2) Hyperkalemia: Plan 1. Pacemaker loss of capture: Her ventricular pacemaker measurements have not been ideal in the past, they are worse this admission which may be in part a function of hyperkalemia and perhaps other metabolic abnormalities from hypotension. We were able to obtain capture by increasing her pacing output to the maximum. I am going to evaluate her pacemaker today to see if the measurements have improved. This may not be terribly reliable and we should plan on pacemaker lead revision, which will be somewhat difficult given her complex pacing history. With appropriate capture at high outputs that is not urgent but I would like to do at this admission. Probably upgrade to a biventricular pacemaker (she does not meet criteria for an ICD) would be indicated however may be difficult. This may help her left ventricular function and cardiac output since she has a very wide paced complex. 2. Hyperkalemia, increasing creatinine: This could have contributed to loss of capture or vice versa, her creatinine and her potassium are improved today. Admission and Anticipated Discharge Date Admission Date: October 25, 2023 Subjective She seems to feel better today, she is complaining of feeling tired but does not have any other complaints. No shortness of breath or chest discomfort. She is sitting at her bedside. Physical Exam Physical Exam: Constitutional: Alert, cooperative and in no distress. HEENT: Unremarkable Neck: No jugular venous distention, carotid pulses are normal and equal bilaterally without bruits. Pulmonary: Clear to auscultation bilaterally. Cardiac: Regular rhythm with no murmur, gallop or rub. Abdomen: Soft, nontender with normal bowel sounds. Extremities: No edema. Distal pulses intact. Neurologic: No focal findings. Skin: The device site is well-healed without erythema, swelling or tenderness. No rash, ecchymoses or petechiae. Results & Data Vital Signs (Past 12 Hours) Vital Signs Temp Pulse Pulse Resp BP BP Pulse Ox 10/26/23 08:00 10/26/23 07:43 36.4 C L 59 L 18 109/66 95 10/26/23 02:49 36.6 C 59 L 18 87/50 L 95 10/26/23 00:21 60 16 93/57 L 81/49 L 95 10/25/23 23:00 60 10/25/23 22:56 36.4 C L 108 H 19 81/48 L 94 O2 Del Method 10/26/23 08:00 Room Air 10/26/23 07:43 Room Air 10/26/23 02:49 Room Air 10/26/23 00:21 Room Air 10/25/23 23:00 10/25/23 22:56 Room Air Laboratory Results Cardiac Enzymes 10/25/23 10/25/23 10/26/23 Range/Units 09:18 11:40 06:55 AST 117 H 154 H (13-39) U/L Troponin I High Sens 21.9 H 21.5 H (0-14) pg/ml B-Natriuretic Peptide 850 H (0-100) pg/ml Coagulation 10/25/23 Range/Units 09:18 B-Natriuretic Peptide 850 H (0-100) pg/ml CBC 10/25/23 10/26/23 Range/Units 09:18 06:55 WBC 9.63 5.98 (4.8-10.8) K/ul RBC 3.43 L 3.08 L (4.20-5.40) M/uL Hgb 9.0 L 7.8 L (12.0-16.0) g/dl Hct 29.9 L 25.9 L (37.0-47.0) % Plt Count 166 116 L (130-400) K/uL Neut # (Auto) 7.77 H 4.77 (1.40-6.50) K/uL Lymph # (Auto) 0.89 L 0.60 L (1.20-3.40) K/uL Rogers # (Auto) 0.86 H 0.54 (0.11-0.59) K/uL Eos # (Auto) 0.01 0.01 (0.00-0.50) K/uL Baso # (Auto) 0.02 0.01 (0.00-0.20) K/uL Comprehensive Metabolic Panel 10/25/23 10/25/23 10/25/23 Range/Units 09:18 11:40 17:27 Sodium 127 L 129 L 131 L (136-145) mmol/L Potassium 5.8 H 6.5 H* 4.5 D (3.5-5.1) mmol/L Chloride 97 L 99 102 (98-107) mmol/L Carbon Dioxide 24 22 23 (21-32) mmol/L BUN 65 H 65 H 59 H (6-23) mg/dl Creatinine 2.62 H 2.63 H 2.43 H (0.6-1.2) mg/dl Glucose 84 72 97 (70-99(Fasting)) mg/dl Calcium 7.9 L 8.0 L 7.7 L (8.6-10.3) mg/dl Direct Bilirubin (0-0.2) mg/dl AST 117 H (13-39) U/L ALT 113 H (7-52) U/L Alkaline Phosphatase 79 (34-104) U/L Total Protein 6.6 (6.0-8.3) gm/dl Albumin 3.6 (3.4-5.0) gm/dl 10/25/23 10/26/23 10/26/23 Range/Units 21:17 00:44 06:55 Sodium 131 L 132 L 132 L (136-145) mmol/L Potassium 4.8 4.8 (3.5-5.1) mmol/L Chloride 102 103 (98-107) mmol/L Carbon Dioxide 25 25 (21-32) mmol/L BUN 59 H 55 H (6-23) mg/dl Creatinine 2.49 H 2.45 H (0.6-1.2) mg/dl Glucose 81 89 (70-99(Fasting)) mg/dl Calcium 7.4 L 7.1 L (8.6-10.3) mg/dl Direct Bilirubin (0-0.2) mg/dl AST (13-39) U/L ALT (7-52) U/L Alkaline Phosphatase (34-104) U/L Total Protein (6.0-8.3) gm/dl Albumin (3.4-5.0) gm/dl 10/26/23 10/26/23 10/26/23 Range/Units 06:55 06:55 06:55 Sodium 132 L (136-145) mmol/L Potassium 4.7 4.5 (3.5-5.1) mmol/L Chloride 104 104 (98-107) mmol/L Carbon Dioxide 25 (21-32) mmol/L BUN (6-23) mg/dl Creatinine (0.6-1.2) mg/dl Glucose (70-99(Fasting)) mg/dl Calcium (8.6-10.3) mg/dl Direct Bilirubin (0-0.2) mg/dl AST (13-39) U/L ALT (7-52) U/L Alkaline Phosphatase (34-104) U/L Total Protein (6.0-8.3) gm/dl Albumin (3.4-5.0) gm/dl 10/26/23 10/26/23 10/26/23 Range/Units 06:55 06:55 06:55 Sodium (136-145) mmol/L Potassium (3.5-5.1) mmol/L Chloride (98-107) mmol/L Carbon Dioxide 24 (21-32) mmol/L BUN 49 H 49 H (6-23) mg/dl Creatinine 2.13 H D 2.11 H (0.6-1.2) mg/dl Glucose 69 L (70-99(Fasting)) mg/dl Calcium (8.6-10.3) mg/dl Direct Bilirubin (0-0.2) mg/dl AST (13-39) U/L ALT (7-52) U/L Alkaline Phosphatase (34-104) U/L Total Protein (6.0-8.3) gm/dl Albumin (3.4-5.0) gm/dl 10/26/23 10/26/23 Range/Units 06:55 06:55 Sodium (136-145) mmol/L Potassium (3.5-5.1) mmol/L Chloride (98-107) mmol/L Carbon Dioxide (21-32) mmol/L BUN (6-23) mg/dl Creatinine (0.6-1.2) mg/dl Glucose 68 L (70-99(Fasting)) mg/dl Calcium 7.1 L 7.1 L (8.6-10.3) mg/dl Direct Bilirubin 0.1 (0-0.2) mg/dl AST 154 H (13-39) U/L ALT 143 H (7-52) U/L Alkaline Phosphatase 69 (34-104) U/L Total Protein 5.2 L D (6.0-8.3) gm/dl Albumin 2.7 L (3.4-5.0) gm/dl Intake and Output 10/25/23 10/26/23 10/26/23 22:59 06:59 14:59 Intake Total 600 / 2970 600 / 2970 Output Total 201 / 202 1 / 202 Balance 399 / 2768 599 / 2768 Intake: IV 600 / 2970 600 / 2970 Sodium Chloride 0.9% 500 ml @ 500 / 500 999 mls/hr IV .Q31M ONE Rx#: [id number] Sodium Chloride 0.9% 500 ml @ 500 / 500 200 mls/hr IV .Q2H30M [facility] Rx#: [id number] metroNIDAZOLE 500 mg In 100 ml 100 / 200 100 / 200 @ 100 mls/hr IV Q8H [facility] Rx#: [id number] Oral 0 / 0 Output: Urine 200 / 200 # Bowel Movements 1 / 2 1 / 2 Other: # Unmeasured Voids 1 Weight 49.5 kg 47.854 kg Weight Measurement Method [facility]ated by [facility] Diagnostic Findings Telemetry: AV sequential pacing with appropriate ventricular capture following reprogramming of device yesterday. No significant arrhythmia. Electrocardiogram this a.m.: AV sequential pacing with appropriate ventricular capture, very wide QRS complex (incorrectly listed on the report), duration is in excess of 200 ms. PG Care Time/CCT Total # of Minutes Spent Total Time Spent with Patient: Total time spent is greater than 50% in coordination of care (as documented) at patient's floor/unit and/or counseling patient: Coding Level of Care Code 81187 SUB INP/OBS CARE 2/35MIN Diagnoses Pacemaker malfunction T82.111A Hyperkalemia E87.5
--- NOTE | 2023-10-26 09:02 | Nephrology Progress Note ---
Date of Service October 26, 2023 Assessment & Plan (1) Acute kidney injury: Plan: * IGNACIO likely on the basis of dehydration * Provide 1 L 0.9 NS at 80 cc/hr today * Monitor PRP * 10/25/23 urine microscopy negative for ATN casts * If renal function fails to improve w/ IVF will need renal US (2) Chronic kidney disease with active medical management without dialysis, stage 2 (mild): Plan: * CKD stage G2/A3 (moderate impairment). Baseline Cr has been 0.8-1.0 w/ EGFR 65 cc/min. Urine sediment has been benign. UPCR 0.6. 06/04 renal US revealed cortical scarring c/w microvascular disease. 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 Coley this morning. Pacemaker revision planned for later this week (5) CAD (coronary artery disease): (6) Paroxysmal atrial fibrillation: Admission and Anticipated Discharge Date Admission Date: October 25, 2023 Subjective Ms. Mata was evaluated in her hospital room this morning. She was sitting up in a chair. Ms. Mata denied angina, palpitations. She tolerated Lokelma without diarrhea Review of Systems Constitutional: no fever Eyes: no problem reported Ear, Nose, Mouth, Throat: no problem reported Respiratory: no cough and no dyspnea Cardiovascular: no chest pain Gastrointestinal: no abdominal pain Physical Exam Constitutional: + frail appearing Eyes: PERRL, conjunctivae normal, anicteric sclerae ENMT: Mouth: + dry oral mucous membranes Neck: trachea midline, no thyromegaly Respiratory: no respiratory distress (diminished breath sounds at bases ) Cardiovascular: Rate/Rhythm: + bradycardic Gastrointestinal (Abdomen): normal bowel sounds, soft, nontender, no hepatosplenomegaly Skin: + turgor decreased Neurologic: Speech / Cognition: normal speech and normal cognition Results & Data Vital Signs (Past 12 Hours) Vital Signs Temp Pulse Pulse Resp BP BP Pulse Ox 10/26/23 08:00 10/26/23 07:43 36.4 C L 59 L 18 109/66 95 10/26/23 02:49 36.6 C 59 L 18 87/50 L 95 10/26/23 00:21 60 16 93/57 L 81/49 L 95 10/25/23 23:00 60 10/25/23 22:56 36.4 C L 108 H 19 81/48 L 94 O2 Del Method 10/26/23 08:00 Room Air 10/26/23 07:43 Room Air 10/26/23 02:49 Room Air 10/26/23 00:21 Room Air 10/25/23 23:00 10/25/23 22:56 Room Air Laboratory Results Laboratory Results - last 24 hr 10/25/23 10/25/23 10/25/23 09:18 11:40 13:34 WBC 9.63 RBC 3.43 L Hgb 9.0 L Hct 29.9 L MCV 87.2 MCH 26.2 MCHC 30.1 L RDW Std Deviation 46.3 RDW Coeff of Debby 15.9 H Plt Count 166 MPV 11.4 Immature Gran % (Auto) 0.8 Neut % (Auto) 80.8 Lymph % (Auto) 9.2 Dodge % (Auto) 8.9 Eos % (Auto) 0.1 Baso % (Auto) 0.2 Neut # (Auto) 7.77 H Lymph # (Auto) 0.89 L [place] # (Auto) 0.86 H Eos # (Auto) 0.01 Baso # (Auto) 0.02 Immature Gran # (Auto) 0.08 Polychromasia Tear Drop Cells Ovalocytes Sodium 127 L 129 L Potassium 5.8 H 6.5 H* Chloride 97 L 99 Carbon Dioxide 24 22 Anion Gap 6 8 BUN 65 H 65 H Creatinine 2.62 H 2.63 H Est Cr Clr Drug Dosing 12.0 11.9 Est GFR ( Amer) 18.4 18.4 Est GFR (Non-Af Amer) 15.9 15.8 BUN/Creatinine Ratio 24.8 H 24.7 H Glucose 84 72 Osmolality 290 Calcium 7.9 L 8.0 L Magnesium 2.0 Total Bilirubin 0.7 Direct Bilirubin AST 117 H ALT 113 H Alkaline Phosphatase 79 Total Creatine Kinase 67 Troponin I High Sens 21.9 H 21.5 H B-Natriuretic Peptide 850 H Total Protein 6.6 Albumin 3.6 Globulin 3.0 Albumin/Globulin Ratio 1.2 Urine Color Urine Appearance Urine pH Ur Specific [place] Urine Protein Urine Glucose (UA) Urine Ketones Urine Blood Urine Nitrite Urine Bilirubin Urine Urobilinogen Ur Leukocyte Esterase Urine WBC (Auto) Urine RBC (Auto) U Hyaline Cast (Auto) U Epithel Cells (Auto) Urine Bacteria (Auto) Urine Yeast Urine Osmolality Ur Random Sodium 43 SARS-CoV-2 (PCR) Influenza Type A (PCR) Influenza Type B (PCR) RSV (RT-PCR) 10/25/23 10/25/23 10/25/23 16:08 17:27 21:17 WBC RBC Hgb Hct MCV MCH MCHC RDW Std Deviation RDW Coeff of Debby Plt Count MPV Immature Gran % (Auto) Neut % (Auto) Lymph % (Auto) [place] % (Auto) Eos % (Auto) Baso % (Auto) Neut # (Auto) Lymph # (Auto) [place] # (Auto) Eos # (Auto) Baso # (Auto) Immature Gran # (Auto) Polychromasia Tear Drop Cells Ovalocytes Sodium 131 L 131 L Potassium 4.5 D 4.8 Chloride 102 102 Carbon Dioxide 23 25 Anion Gap 6 4 BUN 59 H 59 H Creatinine 2.43 H 2.49 H Est Cr Clr Drug Dosing 13.0 12.7 Est GFR ( Amer) 20.2 19.6 Est GFR (Non-Af Amer) 17.4 16.9 BUN/Creatinine Ratio 24.3 H 23.7 H Glucose 97 81 Osmolality 295 Calcium 7.7 L 7.4 L Magnesium Total Bilirubin Direct Bilirubin AST ALT Alkaline Phosphatase Total Creatine Kinase Troponin I High Sens B-Natriuretic Peptide Total Protein Albumin Globulin Albumin/Globulin Ratio Urine Color Yellow Urine Appearance Cloudy A Urine pH 6.0 Ur Specific [place] 1.017 Urine Protein Trace H Urine Glucose (UA) 2+ H Urine Ketones Negative Urine Blood 2+ H Urine Nitrite Negative Urine Bilirubin Negative Urine Urobilinogen Negative Ur Leukocyte Esterase 2+ H Urine WBC (Auto) 5-10 H Urine RBC (Auto) 0-4 U Hyaline Cast (Auto) 1-5 U Epithel Cells (Auto) >30 H Urine Bacteria (Auto) 1+ H Urine Yeast Not Reportable Urine Osmolality 458 L Ur Random Sodium 43 SARS-CoV-2 (PCR) Influenza Type A (PCR) Influenza Type B (PCR) RSV (RT-PCR) 10/25/23 10/26/23 10/26/23 Unknown 00:44 06:55 WBC 5.98 RBC 3.08 L Hgb 7.8 L Hct 25.9 L MCV 84.1 MCH 25.3 MCHC 30.1 L RDW Std Deviation 46.6 H RDW Coeff of Debby 15.3 H Plt Count 116 L MPV 10.6 Immature Gran % (Auto) 0.8 Neut % (Auto) 79.8 Lymph % (Auto) 10.0 [place] % (Auto) 9.0 Eos % (Auto) 0.2 Baso % (Auto) 0.2 Neut # (Auto) 4.77 Lymph # (Auto) 0.60 L [place] # (Auto) 0.54 Eos # (Auto) 0.01 Baso # (Auto) 0.01 Immature Gran # (Auto) 0.05 Polychromasia 1+ Tear Drop Cells 1+ Ovalocytes 1+ Sodium 132 L 132 L Potassium 4.8 Chloride 103 Carbon Dioxide 25 Anion Gap 4 BUN 55 H Creatinine 2.45 H Est Cr Clr Drug Dosing 12.9 Est GFR ( Amer) 20.0 Est GFR (Non-Af Amer) 17.3 BUN/Creatinine Ratio 22.4 H Glucose 89 Osmolality Calcium 7.1 L Magnesium Total Bilirubin Direct Bilirubin AST ALT Alkaline Phosphatase Total Creatine Kinase Troponin I High Sens B-Natriuretic Peptide Total Protein Albumin Globulin Albumin/Globulin Ratio Urine Color Urine Appearance Urine pH Ur Specific [place] Urine Protein Urine Glucose (UA) Urine Ketones Urine Blood Urine Nitrite Urine Bilirubin Urine Urobilinogen Ur Leukocyte Esterase Urine WBC (Auto) Urine RBC (Auto) U Hyaline Cast (Auto) U Epithel Cells (Auto) Urine Bacteria (Auto) Urine Yeast Urine Osmolality Ur Random Sodium SARS-CoV-2 (PCR) NEGATIVE Influenza Type A (PCR) Negative Influenza Type B (PCR) Negative RSV (RT-PCR) Negative 10/26/23 10/26/23 10/26/23 06:55 06:55 06:55 WBC RBC Hgb Hct MCV MCH MCHC RDW Std Deviation RDW Coeff of Debby Plt Count MPV Immature Gran % (Auto) Neut % (Auto) Lymph % (Auto) [place] % (Auto) Eos % (Auto) Baso % (Auto) Neut # (Auto) Lymph # (Auto) [place] # (Auto) Eos # (Auto) Baso # (Auto) Immature Gran # (Auto) Polychromasia Tear Drop Cells Ovalocytes Sodium 132 L Potassium 4.7 4.5 Chloride 104 104 Carbon Dioxide 25 Anion Gap BUN Creatinine Est Cr Clr Drug Dosing Est GFR ( Amer) Est GFR (Non-Af Amer) BUN/Creatinine Ratio Glucose Osmolality Calcium Magnesium Total Bilirubin Direct Bilirubin AST ALT Alkaline Phosphatase Total Creatine Kinase Troponin I High Sens B-Natriuretic Peptide Total Protein Albumin Globulin Albumin/Globulin Ratio Urine Color Urine Appearance Urine pH Ur Specific [place] Urine Protein Urine Glucose (UA) Urine Ketones Urine Blood Urine Nitrite Urine Bilirubin Urine Urobilinogen Ur Leukocyte Esterase Urine WBC (Auto) Urine RBC (Auto) U Hyaline Cast (Auto) U Epithel Cells (Auto) Urine Bacteria (Auto) Urine Yeast Urine Osmolality Ur Random Sodium SARS-CoV-2 (PCR) Influenza Type A (PCR) Influenza Type B (PCR) RSV (RT-PCR) 10/26/23 10/26/23 10/26/23 06:55 06:55 06:55 WBC RBC Hgb Hct MCV MCH MCHC RDW Std Deviation RDW Coeff of Debby Plt Count MPV Immature Gran % (Auto) Neut % (Auto) Lymph % (Auto) [place] % (Auto) Eos % (Auto) Baso % (Auto) Neut # (Auto) Lymph # (Auto) [place] # (Auto) Eos # (Auto) Baso # (Auto) Immature Gran # (Auto) Polychromasia Tear Drop Cells Ovalocytes Sodium Potassium Chloride Carbon Dioxide 24 Anion Gap 3 4 BUN 49 H 49 H Creatinine 2.13 H D Est Cr Clr Drug Dosing Est GFR ( Amer) Est GFR (Non-Af Amer) BUN/Creatinine Ratio Glucose Osmolality Calcium Magnesium Total Bilirubin Direct Bilirubin AST ALT Alkaline Phosphatase Total Creatine Kinase Troponin I High Sens B-Natriuretic Peptide Total Protein Albumin Globulin Albumin/Globulin Ratio Urine Color Urine Appearance Urine pH Ur Specific [place] Urine Protein Urine Glucose (UA) Urine Ketones Urine Blood Urine Nitrite Urine Bilirubin Urine Urobilinogen Ur Leukocyte Esterase Urine WBC (Auto) Urine RBC (Auto) U Hyaline Cast (Auto) U Epithel Cells (Auto) Urine Bacteria (Auto) Urine Yeast Urine Osmolality Ur Random Sodium SARS-CoV-2 (PCR) Influenza Type A (PCR) Influenza Type B (PCR) RSV (RT-PCR) 10/26/23 10/26/23 10/26/23 06:55 06:55 06:55 WBC RBC Hgb Hct MCV MCH MCHC RDW Std Deviation RDW Coeff of Debby Plt Count MPV Immature Gran % (Auto) Neut % (Auto) Lymph % (Auto) [place] % (Auto) Eos % (Auto) Baso % (Auto) Neut # (Auto) Lymph # (Auto) [place] # (Auto) Eos # (Auto) Baso # (Auto) Immature Gran # (Auto) Polychromasia Tear Drop Cells Ovalocytes Sodium Potassium Chloride Carbon Dioxide Anion Gap BUN Creatinine 2.11 H Est Cr Clr Drug Dosing 14.3 14.5 Est GFR ( Amer) 23.7 24.0 Est GFR (Non-Af Amer) 20.4 BUN/Creatinine Ratio Glucose Osmolality Calcium Magnesium Total Bilirubin Direct Bilirubin AST ALT Alkaline Phosphatase Total Creatine Kinase Troponin I High Sens B-Natriuretic Peptide Total Protein Albumin Globulin Albumin/Globulin Ratio Urine Color Urine Appearance Urine pH Ur Specific [place] Urine Protein Urine Glucose (UA) Urine Ketones Urine Blood Urine Nitrite Urine Bilirubin Urine Urobilinogen Ur Leukocyte Esterase Urine WBC (Auto) Urine RBC (Auto) U Hyaline Cast (Auto) U Epithel Cells (Auto) Urine Bacteria (Auto) Urine Yeast Urine Osmolality Ur Random Sodium SARS-CoV-2 (PCR) Influenza Type A (PCR) Influenza Type B (PCR) RSV (RT-PCR) 10/26/23 10/26/23 10/26/23 06:55 06:55 06:55 WBC RBC Hgb Hct MCV MCH MCHC RDW Std Deviation RDW Coeff of Debby Plt Count MPV Immature Gran % (Auto) Neut % (Auto) Lymph % (Auto) [place] % (Auto) Eos % (Auto) Baso % (Auto) Neut # (Auto) Lymph # (Auto) [place] # (Auto) Eos # (Auto) Baso # (Auto) Immature Gran # (Auto) Polychromasia Tear Drop Cells Ovalocytes Sodium Potassium Chloride Carbon Dioxide Anion Gap BUN Creatinine Est Cr Clr Drug Dosing Est GFR ( Amer) Est GFR (Non-Af Amer) 20.7 BUN/Creatinine Ratio 23.0 H 23.2 H Glucose 69 L 68 L Osmolality Calcium 7.1 L Magnesium Total Bilirubin Direct Bilirubin AST ALT Alkaline Phosphatase Total Creatine Kinase Troponin I High Sens B-Natriuretic Peptide Total Protein Albumin Globulin Albumin/Globulin Ratio Urine Color Urine Appearance Urine pH Ur Specific [place] Urine Protein Urine Glucose (UA) Urine Ketones Urine Blood Urine Nitrite Urine Bilirubin Urine Urobilinogen Ur Leukocyte Esterase Urine WBC (Auto) Urine RBC (Auto) U Hyaline Cast (Auto) U Epithel Cells (Auto) Urine Bacteria (Auto) Urine Yeast Urine Osmolality Ur Random Sodium SARS-CoV-2 (PCR) Influenza Type A (PCR) Influenza Type B (PCR) RSV (RT-PCR) 10/26/23 06:55 WBC RBC Hgb Hct MCV MCH MCHC RDW Std Deviation RDW Coeff of Debby Plt Count MPV Immature Gran % (Auto) Neut % (Auto) Lymph % (Auto) [place] % (Auto) Eos % (Auto) Baso % (Auto) Neut # (Auto) Lymph # (Auto) [place] # (Auto) Eos # (Auto) Baso # (Auto) Immature Gran # (Auto) Polychromasia Tear Drop Cells Ovalocytes Sodium Potassium Chloride Carbon Dioxide Anion Gap BUN Creatinine Est Cr Clr Drug Dosing Est GFR ( Amer) Est GFR (Non-Af Amer) BUN/Creatinine Ratio Glucose Osmolality Calcium 7.1 L Magnesium 1.7 Total Bilirubin 0.3 Direct Bilirubin 0.1 AST 154 H ALT 143 H Alkaline Phosphatase 69 Total Creatine Kinase Troponin I High Sens B-Natriuretic Peptide Total Protein 5.2 L D Albumin 2.7 L Globulin Albumin/Globulin Ratio Urine Color Urine Appearance Urine pH Ur Specific [place] Urine Protein Urine Glucose (UA) Urine Ketones Urine Blood Urine Nitrite Urine Bilirubin Urine Urobilinogen Ur Leukocyte Esterase Urine WBC (Auto) Urine RBC (Auto) U Hyaline Cast (Auto) U Epithel Cells (Auto) Urine Bacteria (Auto) Urine Yeast Urine Osmolality Ur Random Sodium SARS-CoV-2 (PCR) Influenza Type A (PCR) Influenza Type B (PCR) RSV (RT-PCR) Diagnostic Findings 10/25/23 Echocardiogram: LVEF 40-45%, moderate LVH PG Care Time/CCT Total # of Minutes Spent Total Time Spent with Patient: Total time spent is greater than 50% in coordination of care (as documented) at patient's floor/unit and/or counseling patient: Coding Level of Care Code 14373 SUB INP/OBS CARE 3/50MIN Diagnoses Acute kidney injury N17.9 Chronic kidney disease with active medical management without dialysis, stage 2 (mild) N18.2 Hyperkalemia E87.5 Pacemaker malfunction T82.111A CAD (coronary artery disease) I25.10 Paroxysmal atrial fibrillation I48.0
[2023-10-26] MEDS: cefTRIAXone SODIUM 2,000 MG in DEXTROSE 5 % MINI-B 50 ML IV SCH (10:14)
[2023-10-26 11:12] LABS: Calcium 7.2 mg/dl (8.6-10.3); Potassium 4.5 mmol/L (3.5-5.1)
[2023-10-26 11:17] LABS: BUN Creatinine Ratio 23.5 (10-20); Est GFR (Non-African American) 21.5 ml/min
[2023-10-26] MEDS: SODIUM CHLORIDE 0.9% 1,000 ML IV SCH (11:27)
--- NOTE | 2023-10-26 12:46 | Hospitalist Progress Note ---
Date of Service October 26, 2023 Assessment & Plan (1) Acute kidney injury: (2) Chronic kidney disease with active medical management without dialysis, stage 2 (mild): (3) Hyperkalemia: (4) Pacemaker malfunction: (5) CAD (coronary artery disease): (6) Paroxysmal atrial fibrillation: Plan 87-year-old female with past medical history of syncope/collapse with ventricular tachycardia CHF, paroxysmal atrial fibrillation, Mobitz 2 heart block s/p dual-chamber pacemaker, hypertension who presented to the ER after she tripped using her walker and fell yesterday: Mechanical Fall: CT head negative CTAP significant for S3 fracture Fall precautions Pacemaker Malfunction: Pacemaker loss of capture, pacing output maximized with subsequent capture Cardiology consulted, will likely require lead revision IGNACIO in patient with CKD: Likely secondary to volume contraction, potentially also exacerbated by reduced cardiac output in the setting of pacemaker malfunction. Nephrology consulted, appreciate recs: Baseline Cr 0.8 - 1.0 Most recent Cr 2.04, trending downward Continue gentle IV fluids, 80ml/hr Jardiance, spironolactone held Hyperkalemia: Improved, most recent potassium 4.5 Discontinue Lokelma Low K diet ?Pneumonia: Continue empiric abx. Anemia, chronic: Hgb 7.9, slightly below baseline, continue to monitor FEN/GI: HH VTE ppx: Eliquis Admission and Anticipated Discharge Date Admission Date: October 25, 2023 Supervising Physician Co-Signing Physician Notes I personally examined the patient and verified all clark points of history and exam, discussed case, and agree with decision making with Dr Law Feeling about the same as yesterday. Still fairly weak. Vitals noted, in general she is awake and alert pleasant no distress. HEENT normocephalic atraumatic mucous membranes moist. Breathing unlabored no accessory muscle use good effort. Skin shows no rashes no pallor or icterus. Neuro without focal deficits. Pacer capture failure, acute renal failure, hyperkalemiacontinue gentle hydration as needed and p.o. intake. Potassium improved, renal failure improving. Pacer capture with increased settings. Suspect pacer lead malfun ction as the culpritin discussion with admitting physician, she had pacer capture after settings were changed which temporarily occurred even before her peak potassium, so it seems less likely that fixing the hyperkalemia correlates with pacer capture and more just with the change in settings. Otherwise as above Subjective Patient evaluated at bedside this morning, found sitting in bedside chair in no apparent distress. Patient notes pain well controlled, confirms fall was unrelated to lightheadedness/dizziness/syncope. Denies chest pain, SOB. Reports recent discontinuation of home Lasix, no other recent med changes. Also reports subpar PO fluid intake as of lately. Review of Systems Review of Systems: as per HPI Physical Exam Physical Exam: General: Alert and oriented. No acute distress Cardiac: Irregularly irregular, no murmurs appreciated Respiratory: Lungs clear to auscultation bilaterally, No increased work of breathing Extremities: + bilateral LE pitting edema, feet with venous stasis dermatitis changes Results & Data Results & Data Vital Signs (Past 12 Hours) Vital Signs Temp Pulse Resp BP Pulse Ox O2 Del Method 10/26/23 11:05 36.6 C 98 H 18 124/65 94 Room Air 10/26/23 08:00 Room Air 10/26/23 07:43 36.4 C L 59 L 18 109/66 95 Room Air 10/26/23 02:49 36.6 C 59 L 18 87/50 L 95 Room Air Resident Activity Tracking Resident Involvement: Resident Care Provided Care Provided: Adult Hospital Medicine
[2023-10-26 13:30] LABS: Hematocrit (blood only) 25.5 % (37.0-47.0); Hemoglobin 7.9 g/dl (12.0-16.0); Mean Corpuscular Hemoglobin 25.4 pg (25.0-34.0); Mean Platelet Volume 10.7 fL (9.4-12.4); Platelet Count 122 K/uL (130-400); RDW Coefficient of Variation 15.4 % (11.5-14.5); RDW Standard Deviation 45.1 fL (36.4-46.3); Red Blood Count 3.11 M/uL (4.20-5.40); White Blood Count 6.92 K/ul (4.8-10.8)
[2023-10-26 13:44] LABS: Iron 11 mcg/dl (35-150); Total Iron Binding Cap Calc 290 mcg/dl (250-450); Transferrin (FE) Percent Satur 4 % (15-50); Unsaturated Iron Binding Cap 279 mcg/dl (155-355)
--- NOTE | 2023-10-26 19:19 | Billing Data ---
Date of Service October 26, 2023 Coding Level of Care Code 07465 SUB INP/OBS CARE MIN
[2023-10-26] MEDS: MELATONIN 3 MG TAB PO PRN (22:36)
--- NOTE | 2023-10-27 07:46 | Hospitalist Progress Note ---
Date of Service October 27, 2023 Assessment & Plan (1) Acute kidney injury: (2) Chronic kidney disease with active medical management without dialysis, stage 2 (mild): (3) Hyperkalemia: (4) Pacemaker malfunction: (5) CAD (coronary artery disease): (6) Paroxysmal atrial fibrillation: Plan 87-year-old female with past medical history of syncope/collapse with ventricular tachycardia CHF, paroxysmal atrial fibrillation, Mobitz 2 heart block s/p dual-chamber pacemaker, hypertension who presented to the ER after she tripped using her walker and fell yesterday: Mechanical Fall: CT head negative CTAP significant for S3 fracture Fall precautions Pacemaker Malfunction: Pacemaker loss of capture, pacing output maximized with subsequent capture, paced in the 60s overnight Cardiology consulted, plan for lead revision IGNACIO in patient with CKD: Likely secondary to volume contraction, potentially also exacerbated by reduced cardiac output in the setting of pacemaker malfunction. Nephrology consulted, appreciate recs: Baseline Cr 0.8 - 1.0 Most recent Cr 1.83, trending downward Encourage PO fluids Jardiance, spironolactone held Hyperkalemia: Improved, most recent potassium 4.7 Lokelma discontinued Low K diet ?Pneumonia: abx discontinued Anemia, chronic: Hgb 7.1 IV Venofer x4 days H&H checks, transfuse for Hgb <7 or if symptomatic FEN/GI: HH VTE ppx: Eliquis Admission and Anticipated Discharge Date Admission Date: October 25, 2023 Supervising Physician Co-Signing Physician Notes I personally examined the patient and verified all clark points of history and exam, discussed case, and agree with decision making with Dr Law resting comfortably. Allowed to rest. Specialist input appreciated. Case discussed in depth with student and resident.. Vitals noted, in general she is resting comfortably and appears in no distress. HEENT normocephalic atraumatic mucous membranes moist. Breathing unlabored no accessory muscle use good effort. Skin shows no rashes no pallor or icterus. Neuro without focal deficits. Pacer capture failure, acute renal failure, hyperkalemia Improved overall. Continue supportive care and medical management. Anticipate pacer lead revision. Otherwise as above. Subjective Patient evaluated at bedside this morning, found resting in bed, notes cough is a bit worse today but denies shortness of breath, CP, lightheadedness, excessive fatigue. Telemetry reviewed, consistently paced with rate in the 60s. Vitals reviewed, still borderline hypotensive. Review of Systems Review of Systems: as per HPI Physical Exam Physical Exam: General: Alert and oriented. No acute distress Cardiac: RRR, no murmurs appreciated Respiratory: +wheezes in right lower lung, No increased work of breathing or conversational dyspnea Extremities: + bilateral LE pitting edema, feet with venous stasis dermatitis changes Results & Data Results & Data Vital Signs (Past 12 Hours) Vital Signs Temp Pulse Resp BP Pulse Ox O2 Del Method 10/27/23 07:18 36.5 C 60 17 92/34 L 96 Room Air 10/27/23 03:41 36.5 C 60 18 92/51 L 93 Room Air 10/26/23 22:45 36.3 C L 60 18 105/67 94 Room Air Resident Activity Tracking Resident Involvement: Resident Care Provided Care Provided: Adult Hospital Medicine
[2023-10-27 08:06] LABS: Basophils # (auto) 0.02 K/uL (0.00-0.20); Basophils % (auto) 0.4 %; Hematocrit (blood only) 22.9 % (37.0-47.0); Hemoglobin 7.1 g/dl (12.0-16.0); Immature Granulocytes # (auto) 0.03 K/uL (0.01-0.20); Immature Granulocytes % (auto) 0.6 %; Lymphocytes # (auto) 0.65 K/uL (1.20-3.40); Lymphocytes % (auto) 13.6 %; Mean Corpuscular Hemoglobin 26.3 pg (25.0-34.0); Mean Corpuscular Volume 84.8 fL (80.0-100.0); Mean Platelet Volume 10.9 fL (9.4-12.4); Monocytes # (auto) 0.52 K/uL (0.11-0.59); Monocytes % (auto) 10.9 %; Neutrophils # (auto) 3.55 K/uL (1.40-6.50); Neutrophils % (auto) 74.5 %; Platelet Count 110 K/uL (130-400); RDW Coefficient of Variation 15.4 % (11.5-14.5); RDW Standard Deviation 45.1 fL (36.4-46.3); White Blood Count 4.77 K/ul (4.8-10.8)
[2023-10-27 08:24] LABS: Ovalocytes 1+; Polychromasia 1+
[2023-10-27 08:27] LABS: Albumin Level 2.6 gm/dl (3.4-5.0); BUN Creatinine Ratio 20.2 (10-20); Bilirubin Direct 0.1 mg/dl (0-0.2); Bilirubin,Total 0.3 mg/dl (0.2-1.0); C Reactive Protein 4.36 mg/dl (0-0.5); Calcium 6.8 mg/dl (8.6-10.3); Creatinine Clr Calc Pharmacy 17.5 ml/min; Est GFR (African American) 28.5 ml/min; Est GFR (Non-African American) 24.5 ml/min; Potassium 4.7 mmol/L (3.5-5.1); Total Protein 4.9 gm/dl (6.0-8.3)
--- NOTE | 2023-10-27 09:00 | Nephrology Progress Note ---
Date of Service October 27, 2023 Assessment & Plan (1) Acute kidney injury: Plan: * IGNACIO likely on the basis of dehydration * Creatinine has improved following 1 L IV hydration yesterday * 10/25/23 urine microscopy negative for ATN casts * Monitor PRP, encourage oral hydration (2) Chronic kidney disease with active medical management without dialysis, stage 2 (mild): Plan: * CKD stage G2/A3 (moderate impairment). Baseline Cr has been 0.8-1.0 w/ EGFR 65 cc/min. Urine sediment has been benign. UPCR 0.6. 06/04 renal US revealed cortical scarring c/w microvascular disease. 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 Mata was evaluated in her hospital room this morning. She was sitting up in a chair. Ms. Mata denied angina, palpitations. She reports poor appetite due to loss of taste 4 months ago Review of Systems Constitutional: no fever Eyes: no problem reported Ear, Nose, Mouth, Throat: no problem reported Respiratory: no cough and no dyspnea Cardiovascular: no chest pain Gastrointestinal: no abdominal pain Physical Exam Constitutional: + frail appearing Eyes: PERRL, conjunctivae normal, anicteric sclerae ENMT: Mouth: + dry oral mucous membranes Neck: trachea midline, no thyromegaly Respiratory: no respiratory distress (diminished breath sounds at bases ) Cardiovascular: Rate/Rhythm: + bradycardic Gastrointestinal (Abdomen): normal bowel sounds, soft, nontender, no hepatosplenomegaly Skin: + turgor decreased Neurologic: Speech / Cognition: normal speech and normal cognition Results & Data Vital Signs (Past 12 Hours) Vital Signs Temp Pulse Resp BP Pulse Ox O2 Del Method 10/27/23 08:00 100/54 L 10/27/23 07:18 36.5 C 60 17 92/34 L 96 Room Air 10/27/23 03:41 36.5 C 60 18 92/51 L 93 Room Air 10/26/23 22:45 36.3 C L 60 18 105/67 94 Room Air Laboratory Results Laboratory Results - last 24 hr 10/26/23 10/26/23 10/27/23 10:23 13:08 07:32 WBC 6.92 4.77 L RBC 3.11 L 2.70 L Hgb 7.9 L 7.1 L Hct 25.5 L 22.9 L MCV 82.0 84.8 MCH 25.4 26.3 MCHC 31.0 L 31.0 L RDW Std Deviation 45.1 45.1 RDW Coeff of Debby 15.4 H 15.4 H Plt Count 122 L 110 L MPV 10.7 10.9 Immature Gran % (Auto) 0.6 Neut % (Auto) 74.5 Lymph % (Auto) 13.6 [place] % (Auto) 10.9 Eos % (Auto) 0.0 Baso % (Auto) 0.4 Neut # (Auto) 3.55 Lymph # (Auto) 0.65 L [place] # (Auto) 0.52 Eos # (Auto) 0.00 Baso # (Auto) 0.02 Immature Gran # (Auto) 0.03 Polychromasia 1+ Ovalocytes 1+ Sodium 131 L 131 L Potassium 4.5 4.7 Chloride 104 105 Carbon Dioxide 21 23 Anion Gap 6 3 BUN 48 H 37 H Creatinine 2.04 H 1.83 H Est Cr Clr Drug Dosing 15.0 17.5 Est GFR ( Amer) 25.0 28.5 Est GFR (Non-Af Amer) 21.5 24.5 BUN/Creatinine Ratio 23.5 H 20.2 H Glucose 123 H 78 Calcium 7.2 L 6.8 L Iron 11 L TIBC 290 Unsaturated IBC 279 Transferrin % Sat 4 L Total Bilirubin 0.3 Direct Bilirubin 0.1 AST 162 H ALT 157 H Alkaline Phosphatase 72 C-Reactive Protein 4.36 H Total Protein 4.9 L Albumin 2.6 L PG Care Time/CCT Total # of Minutes Spent Total Time Spent with Patient: Total time spent is greater than 50% in coordination of care (as documented) at patient's floor/unit and/or counseling patient: Coding Level of Care Code 80652 SUB INP/OBS CARE 3/50MIN Diagnoses Acute kidney injury N17.9 Chronic kidney disease with active medical management without dialysis, stage 2 (mild) N18.2 Anemia D64.9 Pacemaker malfunction T82.111A Paroxysmal atrial fibrillation I48.0 CAD (coronary artery disease) I25.10
[2023-10-27] MEDS: IRON SUCROSE 300 MG in SODIUM CHLORIDE 0.9% 250 ML IV SCH (09:51)
[2023-10-27 13:52] LABS: Ferritin 36.5 ng/ml (8-388)
--- NOTE | 2023-10-27 16:43 | Billing Data ---
Date of Service October 27, 2023 Coding Level of Care Code 16594 SUB INP/OBS CARE
--- NOTE | 2023-10-27 21:57 | Electrocardiogram Report ---
Test Reason : Blood Pressure : / mmHG Vent. Rate : 045 BPM Atrial Rate : 000 BPM P-R Int : 000 ms QRS Dur : 038 ms QT Int : 234 ms P-R-T Axes : 000 -83 049 degrees QTc Int : 203 ms Ventricular pacing without ventricular capture Possible ventricular escape rhythm Abnormal ECG When compared with ECG of 16-JUL-2023 20:51, Ventricular pacing is without ventricular capture Confirmed by Mikael Kelly ([id number]) on 10/27/2023 9:57:12 PM Referred By: REFERRED SELF Confirmed By:Mikael Kelly
--- NOTE | 2023-10-28 06:20 | Electrocardiogram Report ---
Test Reason : Blood Pressure : / mmHG Vent. Rate : 093 BPM Atrial Rate : 060 BPM P-R Int : 148 ms QRS Dur : 118 ms QT Int : 114 ms P-R-T Axes : 145 079 000 degrees QTc Int : 141 ms AV dual-paced rhythm Abnormal ECG When compared with ECG of 25-OCT-2023 09:34, AV pacing is now present Confirmed by Mikael Kelly ([id number]) on 10/28/2023 6:20:15 AM Referred By: REFERRED SELF Confirmed By:Mikael Kelly
[2023-10-28 07:25] LABS: BUN Creatinine Ratio 21.1 (10-20); Est GFR (African American) 41.8 ml/min; Est GFR (Non-African American) 36.1 ml/min
[2023-10-28 07:31] LABS: Basophils # (auto) 0.02 K/uL (0.00-0.20); Basophils % (auto) 0.4 %; Hematocrit (blood only) 25.2 % (37.0-47.0); Hemoglobin 7.7 g/dl (12.0-16.0); Immature Granulocytes # (auto) 0.06 K/uL (0.01-0.20); Immature Granulocytes % (auto) 1.3 %; Lymphocytes # (auto) 0.66 K/uL (1.20-3.40); Lymphocytes % (auto) 14.1 %; Mean Corpuscular Hemoglobin 27.1 pg (25.0-34.0); Mean Corpuscular Hgb Conc 30.6 g/dL (32.0-36.0); Mean Corpuscular Volume 88.7 fL (80.0-100.0); Monocytes # (auto) 0.61 K/uL (0.11-0.59); Monocytes % (auto) 13.1 %; Neutrophils # (auto) 3.32 K/uL (1.40-6.50); Neutrophils % (auto) 71.1 %; Ovalocytes 1+; Platelet Count 108 K/uL (130-400); Polychromasia 1+; RDW Coefficient of Variation 16.3 % (11.5-14.5); RDW Standard Deviation 46.7 fL (36.4-46.3); Red Blood Count 2.84 M/uL (4.20-5.40); White Blood Count 4.67 K/ul (4.8-10.8)
--- NOTE | 2023-10-28 09:06 | Nephrology Progress Note ---
Date of Service October 28, 2023 Assessment & Plan (1) Acute kidney injury: Plan: * IGNACIO likely on the basis of dehydration * Creatinine is nearing baseline following IV hydration. Cr 1.3 this am * 10/25/23 urine microscopy negative for ATN casts * Monitor PRP, encourage oral hydration (2) Chronic kidney disease with active medical management without dialysis, stage 2 (mild): Plan: * CKD stage G2/A3 (moderate impairment). Baseline Cr has been 0.8-1.0 w/ EGFR 65 cc/min. Urine sediment has been benign. UPCR 0.6. 06/04 renal US revealed cortical scarring c/w microvascular disease. 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 Mata was evaluated in her hospital room this morning. She reports dizziness when sitting up to eat breakfast this morning. Review of Systems Constitutional: no fever Eyes: no problem reported Ear, Nose, Mouth, Throat: no problem reported Respiratory: no cough and no dyspnea Cardiovascular: no chest pain Gastrointestinal: no abdominal pain Physical Exam Constitutional: + frail appearing Eyes: PERRL, conjunctivae normal, anicteric sclerae ENMT: Mouth: + dry oral mucous membranes Neck: trachea midline, no thyromegaly Respiratory: no respiratory distress (diminished breath sounds at bases ) Cardiovascular: Rate/Rhythm: regular rate Gastrointestinal (Abdomen): normal bowel sounds, soft, nontender, no hepatosplenomegaly Skin: + turgor decreased Neurologic: Speech / Cognition: normal speech and normal cognition Results & Data Vital Signs (Past 12 Hours) Vital Signs Temp Pulse Pulse Resp BP Pulse Ox O2 Del Method 10/28/23 07:25 36.3 C L 72 18 98/60 L 97 Room Air 10/28/23 02:56 36.3 C L 59 L 18 95/57 L 94 Room Air 10/27/23 22:53 36.6 C 60 18 100/67 98 Room Air 10/27/23 22:40 60 Laboratory Results Laboratory Results - last 24 hr 10/27/23 10/28/23 07:32 06:05 WBC 4.67 L RBC 2.84 L Hgb 7.7 L Hct 25.2 L MCV 88.7 MCH 27.1 MCHC 30.6 L RDW Std Deviation 46.7 H RDW Coeff of Debby 16.3 H Plt Count 108 L MPV 11.0 Immature Gran % (Auto) 1.3 Neut % (Auto) 71.1 Lymph % (Auto) 14.1 Mclean % (Auto) 13.1 Eos % (Auto) 0.0 Baso % (Auto) 0.4 Neut # (Auto) 3.32 Lymph # (Auto) 0.66 L Mclean # (Auto) 0.61 H Eos # (Auto) 0.00 Baso # (Auto) 0.02 Immature Gran # (Auto) 0.06 Polychromasia 1+ Ovalocytes 1+ Sodium 131 L 132 L Potassium 4.7 5.0 Chloride 105 106 Carbon Dioxide 23 22 Anion Gap 3 4 BUN 37 H 28 H Creatinine 1.83 H 1.33 H D Est Cr Clr Drug Dosing 17.5 24.0 Est GFR ( Amer) 28.5 41.8 Est GFR (Non-Af Amer) 24.5 36.1 BUN/Creatinine Ratio 20.2 H 21.1 H Glucose 78 73 Calcium 6.8 L 7.0 L Ferritin 36.5 Total Bilirubin 0.3 Direct Bilirubin 0.1 AST 162 H ALT 157 H Alkaline Phosphatase 72 C-Reactive Protein 4.36 H Total Protein 4.9 L Albumin 2.6 L PG Care Time/CCT Total # of Minutes Spent Total Time Spent with Patient: Total time spent is greater than 50% in coordination of care (as documented) at patient's floor/unit and/or counseling patient: Coding Level of Care Code 19946 SUB INP/OBS CARE 3/50MIN Diagnoses Acute kidney injury N17.9 Chronic kidney disease with active medical management without dialysis, stage 2 (mild) N18.2 Anemia D64.9 Pacemaker malfunction T82.111A Paroxysmal atrial fibrillation I48.0 CAD (coronary artery disease) I25.10
--- NOTE | 2023-10-28 12:49 | Cardiology Progress Note ---
Date of Service October 28, 2023 Assessment & Plan (1) Pacemaker malfunction: (2) Hyperkalemia: Plan 1. Pacemaker loss of capture: Her ventricular pacemaker measurements have not been ideal in the past, they are worse this admission which may be in part a function of hyperkalemia and perhaps other metabolic abnormalities from hypotension. We were able to obtain capture by increasing her pacing output to the maximum shortly after presentation. The measurements have did improve somewhat but now is not better, she remains at full output. This may not be terribly reliable and we should plan on pacemaker lead revision, which will be somewhat difficult given her complex pacing history and difficult access on the left. Ideally we would upgrade to a biventricular system (it would be a pacemaker not an ICD due to her ejection fraction being above 35%) but I do not think that is feasible from the left based on my last operative report, which means we will be placing a new system on the right or tunneling one of the leads over from one side to the other. Placing a biventricular system from the right is very difficult, one option would be to place a left bundle lead shop operator from the right which may also be difficult but could probably be accomplished more easily than a biventricular system. With appropriate ventricular capture at high outputs that is not urgent. A left bundle lead (even if we cannot get ideal position) may help her left ventricular function and cardiac output since she has a very wide paced complex. I have her tentatively scheduled for Tuesday at 0800. I will hold her Eliquis starting Tuesday. 2. Hyperkalemia, increasing creatinine: This may have contributed to loss of capture or vice versa, her creatinine and her potassium have improved although her potassium remains borderline high. Admission and Anticipated Discharge Date Admission Date: October 25, 2023 Subjective Feeling well, but weak. No cardiovascular complaints. Physical Exam Physical Exam: Constitutional: Alert, cooperative and in no distress. HEENT: Unremarkable Neck: No jugular venous distention, carotid pulses are normal and equal bilaterally without bruits. Pulmonary: Clear to auscultation bilaterally. Cardiac: Regular rhythm with no murmur, gallop or rub. Abdomen: Soft, nontender with normal bowel sounds. Extremities: No edema. Distal pulses intact. Neurologic: No focal findings. Skin: The device site is well-healed without erythema, swelling or tenderness. No rash, ecchymoses or petechiae. Results & Data Vital Signs (Past 12 Hours) Vital Signs Temp Pulse Resp BP BP Pulse Ox O2 Del Method 10/28/23 10:54 36.3 C L 60 18 104/62 96 Room Air 10/28/23 08:05 Room Air 10/28/23 07:25 36.3 C L 72 18 98/60 L 97 Room Air 10/28/23 02:56 36.3 C L 59 L 18 95/57 L 94 Room Air Laboratory Results Cardiac Enzymes 10/27/23 Range/Units 07:32 AST 162 H (13-39) U/L CBC 10/28/23 Range/Units 06:05 WBC 4.67 L (4.8-10.8) K/ul RBC 2.84 L (4.20-5.40) M/uL Hgb 7.7 L (12.0-16.0) g/dl Hct 25.2 L (37.0-47.0) % Plt Count 108 L (130-400) K/uL Neut # (Auto) 3.32 (1.40-6.50) K/uL Lymph # (Auto) 0.66 L (1.20-3.40) K/uL Nuckolls # (Auto) 0.61 H (0.11-0.59) K/uL Eos # (Auto) 0.00 (0.00-0.50) K/uL Baso # (Auto) 0.02 (0.00-0.20) K/uL Comprehensive Metabolic Panel 10/27/23 10/28/23 Range/Units 07:32 06:05 Sodium 131 L 132 L (136-145) mmol/L Potassium 4.7 5.0 (3.5-5.1) mmol/L Chloride 105 106 (98-107) mmol/L Carbon Dioxide 23 22 (21-32) mmol/L BUN 37 H 28 H (6-23) mg/dl Creatinine 1.83 H 1.33 H D (0.6-1.2) mg/dl Glucose 78 73 (70-99(Fasting)) mg/dl Calcium 6.8 L 7.0 L (8.6-10.3) mg/dl Direct Bilirubin 0.1 (0-0.2) mg/dl AST 162 H (13-39) U/L ALT 157 H (7-52) U/L Alkaline Phosphatase 72 (34-104) U/L Total Protein 4.9 L (6.0-8.3) gm/dl Albumin 2.6 L (3.4-5.0) gm/dl Intake and Output 10/27/23 10/28/23 10/28/23 22:59 06:59 14:59 Intake Total 175 / 690 0 / 690 265 / 265 Output Total 250 / 1250 225 / 1250 Balance -75 / -560 -225 / -560 265 / 265 Intake: IV 265 / 265 Iron Sucrose 300 mg In Sodium 265 / 265 Chloride 0.9% 250 ml @ 176.667 mls/hr IV DAILY EDVIN Rx#: [id number] Oral 175 / 275 0 / 275 Output: Urine 250 / 1250 225 / 1250 Other: # Unmeasured Voids 1 0 Weight 50.8 kg Weight Measurement Method Built in [facility] Diagnostic Findings Pacemaker evaluation: Still elevated pacing thresholds, 6V at 1.2 msec. PG Care Time/CCT Total # of Minutes Spent Total Time Spent with Patient: Total time spent is greater than 50% in coordination of care (as documented) at patient's floor/unit and/or counseling patient: Coding Level of Care Code 40888 SUB INP/OBS CARE 2/35MIN Diagnoses Pacemaker malfunction T82.111A Hyperkalemia E87.5
--- NOTE | 2023-10-28 14:48 | XRay Report ---
XR chest 2V PA/lateral CLINICAL HISTORY: Cough, rhonchi. COMPARISON STUDY: Chest CT April 07, 2023. Chest radiograph October 25, 2023. FINDINGS: Left subclavian pacer is in place. Cardiomegaly is unchanged. There are trace bilateral ple ural effusions. Mild left basilar opacity is present. There is no evidence for overt pulmonary edema. No pneumothorax. IMPRESSION: 1. Cardiomegaly without overt pulmonary edema. Trace bilateral pleural effusions. 2. Mild left basilar opacity. This favors atelectasis although an infectious process could appear sim ilar. ACT 112: Negative or not required by law. Electronically signed by: Gene Youssef M.D. 10/28/2023 2:47 PM
--- NOTE | 2023-10-28 17:20 | Hospitalist Progress Note ---
Date of Service October 28, 2023 Assessment & Plan (1) Acute kidney injury: (2) Chronic kidney disease with active medical management without dialysis, stage 2 (mild): (3) Hyperkalemia: (4) Pacemaker malfunction: (5) CAD (coronary artery disease): (6) Paroxysmal atrial fibrillation: Plan 87-year-old female with past medical history of syncope/collapse with ventricular tachycardia CHF, paroxysmal atrial fibrillation, Mobitz 2 heart block s/p dual-chamber pacemaker, hypertension who presented to the ER after she tripped using her walker and fell: Mechanical Fall: CT head negative CTAP significant for S3 fracture Fall precautions Pacemaker Malfunction: Pacemaker loss of capture, pacing output maximized with subsequent capture, paced in the 60s overnight Cardiology consulted, plan for lead revision, tentatively scheduled for Tuesday IGNACIO in patient with CKD: Likely secondary to volume contraction, potentially also exacerbated by reduced cardiac output in the setting of pacemaker malfunction. Nephrology consulted, appreciate recs: Baseline Cr 0.8 - 1.0 Most recent Cr 1.33, trending downward Encourage PO fluids Jardiance, spironolactone held Hyperkalemia: Improved, most recent potassium 5.0 Lokelma discontinued Low K diet ?Pneumonia: Worsening cough, CXR ordered Anemia, chronic: Hgb 7.7 IV Venofer x4 days H&H checks, transfuse for Hgb <7 or if symptomatic FEN/GI: HH VTE ppx: Eliquis Admission and Anticipated Discharge Date Admission Date: October 25, 2023 Supervising Physician Co-Signing Physician Notes I personally examined the patient and verified all clark points of history and exam, discussed case, and agree with decision making with Dr Law No new complaints from patient for me. At the same time nursing notes that she has had a little bit more of a cough and her lungs sound slightly more rhonchorous today than previous days. Cardiology input appreciatedlead placement for Tuesday. Son present, updated the best my ability and his satisfaction. Vitals noted, Awake and alert, no distress. HEENT normocephalic atraumatic mucous membranes moist. Breathing unlabored no accessory muscle use good effort but she does show faint but noticeable rhonchi left greater than right. Skin shows no rashes no pallor or icterus. Neuro without focal deficits. Pacer capture failure, acute renal failure, hyperkalemia Improved overall. Continue supportive care and medical management. Anticipate pacer lead revision Tuesday. Due to increased cough and rhonchinonspecific findings, room air, no distressbut given that she would have the potential to decompensatechest x- rayfortunately overall reassuringcontinue to follow clinically. her possible acute on chronic systolic CHF present on admission as well as hyponatremia appear to be due predominantly due to poor forward flow from poor pacer capture/bradycardia not necessarily true volume overload. Otherwise as above. Subjective Patient evaluated at bedside this morning, found sleeping in bed both times I attempted to see her. Telemetry reviewed, consistently paced with rate in the 60s. Vitals reviewed, still borderline hypotensive. Review of Systems Review of Systems: as per HPI Physical Exam Physical Exam: General: Sleeping comfortably. No acute distress Respiratory: No increased work of breathing Results & Data Results & Data Vital Signs (Past 12 Hours) Vital Signs Temp Pulse Resp BP BP Pulse Ox O2 Del Method 10/28/23 14:55 36.4 C L 60 18 101/60 96 Room Air 10/28/23 10:54 36.3 C L 60 18 104/62 96 Room Air 10/28/23 08:05 Room Air 10/28/23 07:25 36.3 C L 72 18 98/60 L 97 Room Air Resident Activity Tracking Resident Involvement: Resident Care Provided Care Provided: Adult Hospital Medicine
--- NOTE | 2023-10-28 18:43 | Billing Data ---
Date of Service October 28, 2023 Coding Level of Care Code 03953 SUB INP/OBS CARE MIN
--- NOTE | 2023-10-29 07:39 | Hospitalist Progress Note ---
Date of Service October 29, 2023 Assessment & Plan (1) Acute kidney injury: (2) Chronic kidney disease with active medical management without dialysis, stage 2 (mild): (3) Hyperkalemia: (4) Pacemaker malfunction: (5) CAD (coronary artery disease): (6) Paroxysmal atrial fibrillation: Plan Pt is a 87 yo female with a past medical history of pacemaker for Mobitz type 2 block, previous syncope with ventricular tachycardia, CKD stage 2, CHF, paroxysmal afib, and HTN who presents to the hospital on 10/24 for mechanical fall and admitted for PT/OT recs and for pacemaker malfunction. Today, pending PT/OT recs. Awaiting pacemaker lead revision tentatively Tuesday. #Mechanical fall with walker - CT head negative - CTAP significant for S3 fracture - Fall precautions - pending PT/OT recommendations #Pacemaker Malfunction - presented with pacemaker loss of capture, pacing output maximized with subsequent capture, paced in the 60s overnight - Cardiology consulted, plan for lead revision, tentatively scheduled for Tuesday #IGNACIO in patient with CKD, resolved - Likely secondary to volume contraction, potentially also exacerbated by reduced cardiac output in the setting of pacemaker malfunction. - Nephrology consulted, appreciate recs: - Baseline Cr 0.8 - 1.0, on admission was 2.6, today 1.02 - Encourage PO fluids - Jardiance, spironolactone held in the setting of IGNACIO, #Hyperkalemia - Improved, today was 4.6 - Lokelma discontinued - Low K diet #Anemia, chronic: - Hgb 9.0 on admission, then 7.1 (10/26), today 7.6 - IV Venofer x4 days, day 3 of 4 today - H&H checks, transfuse for Hgb <7 or if symptomatic - stool occult positive, recommend outpatient workup/colonoscopy since hgb stable here VTE ppx: Eliquis Admission and Anticipated Discharge Date Admission Date: October 25, 2023 Supervising Physician Co-Signing Physician Notes I personally examined the patient and verified all clark points of history and exam, discussed case, and agree with decision making with Dr Parker no new complaints just weak. Vitals noted, Awake and alert, no distress. HEENT normocephalic atraumatic mucous membranes moist. Breathing unlabored no accessory muscle use good effort but she does show faint but noticeable rhonchi left greater than right. Skin shows no rashes no pallor or icterus. Neuro without focal deficits. Pacer capture failure, acute renal failure, hyperkalemia Improved overall. Continue supportive care and medical management. Anticipate pacer lead revision Tuesday. supportive care, pt/ot eval and treat, likely will need rehab after dc. encouraged as much ativity as she can tolerate Subjective Pt is a 87 yo female with a past medical history of pacemaker for Mobitz type 2 block, previous syncope with ventricular tachycardia, CKD stage 2, CHF, paroxysmal afib, and HTN who presents to the hospital on 10/24 for mechanical fall and admitted for PT/OT recs and for pacemaker malfunction. Today, pt states she is feeling fine just frustrated that the revision won't be for another few days. No chest pain or SOB but does feel a bit more winded when moving about, but has not moved around much since yesterday when she sat up for a bit. Feels fine while laying in bed today. No questions or complaints at this point in time. Review of Systems Review of Systems: as per HPI Physical Exam Physical Exam: General:Alert and oriented, no acute distress, HEENT: Normocephalic, moist oral mucosa, Cardio: Regular rate and rhythm, no murmur, Resp:Lungs clear to auscultation b/l, no wheezes or rhonchi appreciated GI: Soft and nontender, nondistended, bowel sounds active Skin: Warm, pink, dry, Psych: Mood-affect congruence. Results & Data Results & Data Vital Signs (Past 12 Hours) Vital Signs Temp Pulse Resp BP Pulse Ox O2 Del Method 10/29/23 06:59 36.3 C L 61 18 93/57 L 94 Room Air 10/29/23 02:55 36.3 C L 60 18 98/54 L Room Air 10/28/23 23:38 36.6 C 60 20 122/69 96 Room Air 10/28/23 21:15 Room Air Resident Activity Tracking Resident Involvement: Resident Care Provided Care Provided: Adult Hospital Medicine
[2023-10-29 08:12] LABS: BUN Creatinine Ratio 16.7 (10-20); Calcium 7.2 mg/dl (8.6-10.3); Creatinine Clr Calc Pharmacy 31.3 ml/min; Est GFR (African American) 57.7 ml/min; Est GFR (Non-African American) 49.8 ml/min; Potassium 4.6 mmol/L (3.5-5.1)
[2023-10-29 08:16] LABS: Hematocrit (blood only) 24.6 % (37.0-47.0); Hemoglobin 7.6 g/dl (12.0-16.0); Mean Corpuscular Hemoglobin 26.7 pg (25.0-34.0); Mean Corpuscular Hgb Conc 30.9 g/dL (32.0-36.0); Mean Corpuscular Volume 86.3 fL (80.0-100.0); Mean Platelet Volume 10.1 fL (9.4-12.4); Platelet Count 129 K/uL (130-400); RDW Coefficient of Variation 16.2 % (11.5-14.5); Red Blood Count 2.85 M/uL (4.20-5.40); White Blood Count 4.67 K/ul (4.8-10.8)
--- NOTE | 2023-10-29 11:32 | Nephrology Progress Note ---
Date of Service October 29, 2023 Assessment & Plan (1) Acute kidney injury: Plan: * IGNACIO attributed to dehydration and component of ATN * Creatinine is nearing baseline following IV hydration * 10/25/23 urine microscopy negative for ATN casts * No additional nephrology recommendations at this time * Medications appropriate for kidney function * Spironolactone and empagliflozin held but may be restarted if kidney function stable at discharge * Monitor metabolic profile daily while inpatient * Nephrology will sign off, please call with questions or concerns (2) Chronic kidney disease with active medical management without dialysis, stage 2 (mild): Plan: * CKD stage G2/A3 (moderate impairment). Baseline Cr has been 0.8-1.0 w/ EGFR 65 cc/min. Urine sediment has been benign. UPCR 0.6. 06/04 renal US revealed cortical scarring c/w microvascular disease. 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 Lema within a few weeks of hospital discharge (3) Anemia: Plan: * Iron deficiency anemia * FOBT positive * Patient is on Apixaban for atrial fibrillation * Day #3 of 4 IV Venofer * Monitor H&H, recommend transfusion for Hgb 7.0 or less (4) Pacemaker malfunction: Plan: * Cardiology plans pacemaker lead revision on Tuesday (5) Paroxysmal atrial fibrillation: Plan: * On Apixaban therapy (6) CAD (coronary artery disease): Admission and Anticipated Discharge Date Admission Date: October 25, 2023 Subjective No acute events overnight. Barb feels reasonably well this morning. Appetite remains poor. She has no sense of taste. She denies sinus congestion or pain. She reports a persistent dry cough. She denies dyspnea. She denies melena or hematochezia. Barb states that she did not have a bowel movement in several days but moved her bowels x 3 overnight. She denies abdominal pain. Review of Systems Review of Systems: All systems reviewed & are unremarkable except as noted in HPI & below Physical Exam Constitutional: well developed, + thin and + frail appearing; no acute distress Eyes: no scleral abnormality and no corneal abnormality ENMT: Mouth: no oral mucosal abnormality and oral mucous membranes not dry Neck: normal visual inspection and trachea midline Respiratory: normal respiratory effort Auscultation: lungs clear to auscultation bilaterally Cardiovascular: Rate/Rhythm: regular rate Heart Sounds: normal S1 and normal S2 Extremities: no edema Musculoskeletal: Extremities: no cyanosis and no clubbing Skin: + turgor decreased and + ecchymosis; no jaundice Neurologic: Motor/Sensory: no tremor and no asterixis Psychiatric: Orientation: alert and oriented x 3 Results & Data Vital Signs (Past 12 Hours) Vital Signs Temp Pulse Resp BP Pulse Ox O2 Del Method 10/29/23 11:22 36.3 C L 60 18 89/55 L 95 Room Air 10/29/23 08:00 Room Air 10/29/23 06:59 36.3 C L 61 18 93/57 L 94 Room Air 10/29/23 02:55 36.3 C L 60 18 98/54 L Room Air 10/28/23 23:38 36.6 C 60 20 122/69 96 Room Air Laboratory Results Laboratory Results - last 24 hr 10/28/23 10/29/23 23:30 07:11 WBC 4.67 L RBC 2.85 L Hgb 7.6 L Hct 24.6 L MCV 86.3 MCH 26.7 MCHC 30.9 L RDW Std Deviation 47.0 H RDW Coeff of Debby 16.2 H Plt Count 129 L MPV 10.1 Sodium 132 L Potassium 4.6 Chloride 106 Carbon Dioxide 23 Anion Gap 3 BUN 17 Creatinine 1.02 D Est Cr Clr Drug Dosing 31.3 Est GFR ( Amer) 57.7 Est GFR (Non-Af Amer) 49.8 BUN/Creatinine Ratio 16.7 Glucose 70 Calcium 7.2 L Stool Occult Bld Scrn Positive A PG Care Time/CCT Total # of Minutes Spent Total Time Spent with Patient: Total time spent is greater than 50% in coordination of care (as documented) at patient's floor/unit and/or counseling patient: Coding Level of Care Code 30866 SUB INP/OBS CARE 3/50MIN Diagnoses Acute kidney injury N17.9 Chronic kidney disease with active medical management without dialysis, stage 2 (mild) N18.2 Anemia D64.9 Pacemaker malfunction T82.111A Paroxysmal atrial fibrillation I48.0 CAD (coronary artery disease) I25.10
--- NOTE | 2023-10-29 15:07 | Billing Data ---
Date of Service October 29, 2023 Coding Level of Care Code 08522 SUB INP/OBS CARE
[2023-10-29] MEDS: guaiFENesin 600 MG TABCR PO SCH (20:28)
[2023-10-29] MEDS: ACETAMINOPHEN 500 MG TAB PO PRN (20:29)
--- NOTE | 2023-10-30 07:00 | Hospitalist Progress Note ---
Date of Service October 30, 2023 Assessment & Plan (1) Acute kidney injury: (2) Chronic kidney disease with active medical management without dialysis, stage 2 (mild): (3) Hyperkalemia: (4) Pacemaker malfunction: (5) CAD (coronary artery disease): (6) Paroxysmal atrial fibrillation: Plan Pt is a 87 yo female with a past medical history of pacemaker for Mobitz type 2 block, previous syncope with ventricular tachycardia, CKD stage 2, CHF, paroxysmal afib, and HTN who presents to the hospital on 10/24 for mechanical fall and admitted for PT/OT recs and for pacemaker malfunction. Awaiting pacemaker lead revision tentatively Tuesday. Continue PT/OT while inpatient. #Mechanical fall with walker - CT head negative - CTAP significant for S3 fracture - Fall precautions - PT/OT; recommend rehab #Pacemaker Malfunction - presented with pacemaker loss of capture, pacing output maximized with subsequent capture, paced in the 60s overnight - Cardiology consulted, plan for lead revision, tentatively scheduled for Tuesday #IGNACIO in patient with CKD, resolved - Likely secondary to volume contraction, potentially also exacerbated by reduced cardiac output in the setting of pacemaker malfunction. - Nephrology consulted, appreciate recs: - Baseline Cr 0.8 - 1.0, on admission was 2.6, today 1.02 - Encourage PO fluids - Jardiance, spironolactone held in the setting of IGNACIO, #Hyperkalemia - Improved, today was 5.2 - Lokelma discontinued - Low K diet #Anemia, chronic: - Hgb 9.0 on admission, then 7.1 (10/26), 7.6 - IV Venofer x4 days, day 4 of 4 today - H&H checks, transfuse for Hgb <7 or if symptomatic - stool occult positive, recommend outpatient workup/colonoscopy since hgb stable here VTE ppx: Eliquis Admission and Anticipated Discharge Date Admission Date: October 25, 2023 Supervising Physician Co-Signing Physician Notes I personally examined the patient and verified all clark points of history and exam, discussed case, and agree with decision making with Dr Parker patient up in the chair, sleeping. No distress. Discussed extensively with nursingshe is doing overall well. Did not really want to get up, but nursing did insist and help her to get up, has been coaching her on using incentive spirometryand all of this has led to her breathing improving. Vitals noted, in general she is sleeping comfortably sitting up in the chair no distress. Breathing unlabored no accessory muscle use good effort. Skin without rashes pallor or icterus. Neuro without focal deficits. Given that she is medically quite stable and largely just awaiting procedure, I did allow her to rest Pacer capture failure, acute renal failure, hyperkalemia Improved overall. Continue supportive care and medical management. Anticipate pacer lead revision Tuesday. supportive care, pt/ot eval and treat, likely will need rehab after dc. greatly appreciated nursing encouraging activity and incentive spirometry use. mild bump in potassium noted, continue to follow Subjective Pt is a 87 yo female with a past medical history of pacemaker for Mobitz type 2 block, previous syncope with ventricular tachycardia, CKD stage 2, CHF, paroxysmal afib, and HTN who presents to the hospital on 10/24 for mechanical fall and admitted for PT/OT recs and for pacemaker malfunction. Today, states she is feeling fine. No questions or complaints today. She states she has been up a little bit but not much since yesterday. Review of Systems Review of Systems: As per HPI Physical Exam Physical Exam: General:Alert and oriented, no acute distress, Cardio: Regular rate and rhythm, no murmur, Resp:Lungs clear to auscultation b/l, no wheezes but very faint rhonchi noted Skin: Warm, pink, dry, Psych: Mood-affect congruence. Results & Data Results & Data Vital Signs (Past 12 Hours) Vital Signs Temp Pulse Resp BP Pulse Ox O2 Del Method 10/30/23 03:26 36.3 C L 60 18 93/58 L 94 Room Air 10/29/23 22:45 36.5 C 59 L 17 98/59 L 94 Room Air 10/29/23 19:49 36.6 C 60 18 117/69 96 Room Air 10/29/23 19:12 Room Air Resident Activity Tracking Resident Involvement: Resident Care Provided Care Provided: Adult Hospital Medicine
[2023-10-30 08:26] LABS: Albumin Globulin Ratio 1.1 (0.9-2); Albumin Level 2.6 gm/dl (3.4-5.0); BUN Creatinine Ratio 14.7 (10-20); Bilirubin,Total 0.4 mg/dl (0.2-1.0); Calcium 7.2 mg/dl (8.6-10.3); Creatinine Clr Calc Pharmacy 31.2 ml/min; Est GFR (African American) 57.7 ml/min; Est GFR (Non-African American) 49.8 ml/min; Globulin 2.3 gm/dl (2.5-4.0); Potassium 5.2 mmol/L (3.5-5.1); Total Protein 4.9 gm/dl (6.0-8.3)
--- NOTE | 2023-10-30 17:49 | Billing Data ---
Date of Service October 30, 2023 Coding Level of Care Code 36352 SUB INP/OBS CARE
[2023-10-31 07:32] LABS: Basophils # (auto) 0.02 K/uL (0.00-0.20); Basophils % (auto) 0.4 %; Hematocrit (blood only) 25.8 % (37.0-47.0); Hemoglobin 8.1 g/dl (12.0-16.0); Immature Granulocytes # (auto) 0.07 K/uL (0.01-0.20); Immature Granulocytes % (auto) 1.3 %; Lymphocytes # (auto) 0.66 K/uL (1.20-3.40); Lymphocytes % (auto) 12.6 %; Mean Corpuscular Hgb Conc 31.4 g/dL (32.0-36.0); Mean Corpuscular Volume 82.7 fL (80.0-100.0); Monocytes # (auto) 0.61 K/uL (0.11-0.59); Monocytes % (auto) 11.7 %; Neutrophils # (auto) 3.86 K/uL (1.40-6.50); Nucleated RBC # (auto) 0.02 K/uL (0.00-0.12); Nucleated RBC % (auto) 0.4 %; Platelet Count 157 K/uL (130-400); RDW Standard Deviation 46.4 fL (36.4-46.3); Red Blood Count 3.12 M/uL (4.20-5.40); White Blood Count 5.22 K/ul (4.8-10.8)
[2023-10-31 07:50] LABS: BUN Creatinine Ratio 14.1 (10-20); Calcium 7.6 mg/dl (8.6-10.3); Creatinine Clr Calc Pharmacy 34.7 ml/min; Est GFR (African American) 65.3 ml/min; Est GFR (Non-African American) 56.4 ml/min; Potassium 4.9 mmol/L (3.5-5.1)
--- NOTE | 2023-10-31 11:30 | Hospitalist Progress Note ---
Date of Service October 31, 2023 Assessment & Plan (1) Acute kidney injury: (2) Chronic kidney disease with active medical management without dialysis, stage 2 (mild): (3) Hyperkalemia: (4) Pacemaker malfunction: (5) CAD (coronary artery disease): (6) Paroxysmal atrial fibrillation: Plan Pt is a 87 yo female with a past medical history of pacemaker for Mobitz type 2 block, previous syncope with ventricular tachycardia, CKD stage 2, CHF, paroxysmal afib, and HTN who presents to the hospital on 10/24 for mechanical fall and admitted for PT/OT recs and for pacemaker malfunction. Awaiting pacemaker lead revision tentatively Tuesday. Continue PT/OT while inpatient. #Mechanical fall with walker - CT head negative - CTAP significant for S3 fracture - Fall precautions - PT/OT; recommend rehab #Pacemaker Malfunction - presented with pacemaker loss of capture, pacing output maximized with subsequent capture, paced in the 60s overnight - Cardiology consulted, plan for lead revision, tentatively scheduled for Tuesday #IGNACIO in patient with CKD, resolved - Likely secondary to volume contraction, potentially also exacerbated by reduced cardiac output in the setting of pacemaker malfunction. - Nephrology consulted, appreciate recs: - Encourage PO fluids - Jardiance, spironolactone held in the setting of IGNACIO okay restart at discharge #Hyperkalemia - Improved, today was 5.2 - Lokelma discontinued - Low K diet - Consider lowering dose of spironolactone at discharge #Anemia, chronic: - Hgb 9.0 on admission, then 7.1 (10/26), 7.6 - IV Venofer x4 days, day 4 of 4 today - H&H checks, transfuse for Hgb <7 or if symptomatic - stool occult positive, recommend outpatient workup/colonoscopy since hgb stable here VTE ppx: Eliquis Admission and Anticipated Discharge Date Admission Date: October 25, 2023 Supervising Physician Co-Signing Physician Notes ATTESTATION I also saw the patient and confirmed clark portions of the history and exam. I agree with the impression and plan in the resident documentation, and as summarized below. Upon exam, the patient is seated in bed; no complaints. She is scheduled for pacemaker revision tomorrow. EXAM 94/54, 61, 12, 36.7 C, 99% room air She is pleasant alert. No acute distress. Respirations nonlabored Heart regular rate DATA Labs Hemoglobin 8.1, platelet count 157 Sodium 131, potassium 4.9, BUN 13, creatinine 0.92 IMPRESSION & PLAN IGNACIO with history of CKD, stage G2/A3 Anemia, iron deficiency, stable Pacemaker malfunction, revision scheduled for tomorrow Paroxysmal atrial fibrillation, on systemic anticoagulation I agree with the plan as noted in the resident documentation above. Patient is aware and understanding of the procedure scheduled for tomorrow. Plan is for placement for physical therapy thereafter. Additional per resident documentation Subjective Pt is a 87 yo female with a past medical history of pacemaker for Mobitz type 2 block, previous syncope with ventricular tachycardia, CKD stage 2, CHF, paroxysmal afib, and HTN who presents to the hospital on 10/24 for mechanical fall and admitted for PT/OT recs and for pacemaker malfunction. Patient seen and evaluated at bedside this morning. No acute events overnight. Plan for pacemaker revision tomorrow. Patient denies CP, SOB, abdominal pain, nausea, vomiting, lightheadedness, dizziness, and diarrhea. VSS. Labs largely unremarkable Review of Systems Review of Systems: reviewed, per HPI Physical Exam Physical Exam: Constitutional: no acute distress HEENT: NCAT, no conjunctival injection CV: regular rhythm, no murmur appreciated, extremities well-perfused, no LE edema Resp: CTABL, no wheezes/rales/rhonchi appreciated, no increased work of breathing MSK: no gross deformities appreciated Skin: warm, dry, no rash appreciated Neuro: alert, oriented, no focal neurologic deficit appreciated Results & Data Results & Data Vital Signs (Past 12 Hours) Vital Signs Temp Pulse Resp BP BP Pulse Ox O2 Del Method 10/31/23 08:00 Room Air 10/31/23 07:39 36.5 C 60 18 106/65 97 Room Air 10/31/23 03:26 36.4 C L 60 18 92/52 L 97 Room Air
[2023-10-31] MEDS: LACTATED RINGER'S 1,000 ML IV SCH (18:47)
[2023-11-01] MEDS: LACTATED RINGER'S 1,000 ML IV SCH (05:41)
[2023-11-01 07:27] LABS: Basophils # (auto) 0.02 K/uL (0.00-0.20); Basophils % (auto) 0.4 %; Hematocrit (blood only) 26.7 % (37.0-47.0); Hemoglobin 8.1 g/dl (12.0-16.0); Immature Granulocytes # (auto) 0.07 K/uL (0.01-0.20); Immature Granulocytes % (auto) 1.3 %; Lymphocytes # (auto) 0.61 K/uL (1.20-3.40); Lymphocytes % (auto) 11.4 %; Mean Corpuscular Hemoglobin 25.3 pg (25.0-34.0); Mean Corpuscular Hgb Conc 30.3 g/dL (32.0-36.0); Mean Corpuscular Volume 83.4 fL (80.0-100.0); Mean Platelet Volume 9.7 fL (9.4-12.4); Monocytes # (auto) 0.55 K/uL (0.11-0.59); Monocytes % (auto) 10.3 %; Neutrophils # (auto) 4.09 K/uL (1.40-6.50); Neutrophils % (auto) 76.6 %; Nucleated RBC # (auto) 0.02 K/uL (0.00-0.12); Nucleated RBC % (auto) 0.4 %; Platelet Count 162 K/uL (130-400); RDW Coefficient of Variation 16.3 % (11.5-14.5); RDW Standard Deviation 47.2 fL (36.4-46.3); White Blood Count 5.34 K/ul (4.8-10.8)
[2023-11-01 07:56] LABS: Calcium 7.8 mg/dl (8.6-10.3); Creatinine Clr Calc Pharmacy 34.7 ml/min; Est GFR (African American) 65.3 ml/min; Est GFR (Non-African American) 56.4 ml/min; Potassium 5.2 mmol/L (3.5-5.1)
--- NOTE | 2023-11-01 08:27 | History & Physical Bridge Note ---
Date of Service November 01, 2023 History & Physical Bridge Note I have examined the patient, reviewed the recent notes and in the interval since the performance of my last exam I have noted the following changes of clinical significance: Clinically she has improved, she is alert, her laboratory studies are acceptable. Her blood pressure is borderline but acceptable to proceed. Our plan is to implant a new left bundle assistant branch operations manager from the right, tunnel it to the left and replace the pacemaker on the left. I reviewed the indications, procedure, risks and alternatives with the patient, and answered all questions. Patient understands and agrees to the procedure. Consent obtained. I also reviewed the risks and use of sedation, patient understands and consent obtained.
--- NOTE | 2023-11-01 08:28 | Pre Anesthesia Assessment ---
Date of Service November 01, 2023 Pre Sedation Assessment Vital Signs Temp Pulse Pulse Pulse Resp BP BP 11/01/23 07:40 100 H 18 94/56 L 11/01/23 07:31 36.4 C L 99 H 16 100/59 L 11/01/23 07:30 11/01/23 02:41 36.6 C 72 18 96/60 L 10/31/23 23:29 62 10/31/23 23:03 36.6 C 63 20 93/53 L 10/31/23 20:59 10/31/23 19:44 37.0 C 61 20 113/62 10/31/23 15:01 36.7 C 61 12 95/54 L 10/31/23 11:35 36.4 C L 63 18 93/59 L Pulse Ox O2 Del Method 11/01/23 07:40 96 Room Air 11/01/23 07:31 96 Room Air 11/01/23 07:30 Room Air 11/01/23 02:41 95 Room Air 10/31/23 23:29 10/31/23 23:03 95 Room Air 10/31/23 20:59 Room Air 10/31/23 19:44 97 Room Air 10/31/23 15:01 99 Room Air 10/31/23 11:35 97 Room Air Cardiovascular RRR, no murmur, no edema Respiratory normal respiratory effort, lungs clear to auscultation Pre-Sedation Airway Assessment Smoking Status: Former smoker Hx Sleep Apnea: No Hx Difficult Intubation: No Short, Thick Neck: No Thyromental Distance: > or= 3.5 Finger Breadths Oral Cavity: + WNL Mallampati Class: II ASA: ASA3 NPO Status Date of Last Intake of Fluids: 10/31/23 Time of Last Intake of Fluids: 22:00 Date of Last Intake of Solid Food: 10/31/23 Time of Last Intake of Solid Foods: 22:00 Procedure Planning Contraindications for Sedation: none Current Medications Reviewed: Yes Notes The planned sedation has been discussed with the patient. Informed Consent was obtained. I have identified the patient, determined the appropriateness of sedation and have assessed the patient immediately prior to the procedure. All medicine(s) and interventions are by my order.
[2023-11-01] MEDS: LIDOCAINE 1% LOCAL 20 ML VIAL ONE (09:38)
[2023-11-01] MEDS: VANCOMYCIN HCL 1000MG/20ML VIAL ONE (09:38)
[2023-11-01] MEDS: diphenhydrAMINE 50 MG/ML VIAL ONE (10:37)
[2023-11-01] MEDS ORDERED: SODIUM CHLORIDE 0.9% 250 ML IV PRN (11:22)
[2023-11-01 12:15] LABS: iSTAT Arterial Blood Gas HCO3 21 meg/L (19-24); iSTAT Arterial Blood Gas pCO2 42 mmHg (35-46); iSTAT Arterial Blood Gas pO2 352 mmHg (80-95); iSTAT Carbon Dioxide 22 mmol/L (24-31); iSTAT Hematocrit 23 % (37-47); iSTAT Hemoglobin 7.8 g/dl (12.0-16.0); iSTAT Potassium 5.2 mmol/L (3.3-5.0); iSTAT Sodium 131 mmol/L (135-144)
--- NOTE | 2023-11-01 12:30 | Electrophysiology Report ---
Date of Service November 01, 2023 Electrophysiology Procedure Electrophysiology Procedure Report Preoperative diagnosis: Left-sided ventricular lead malfunction Postoperative diagnosis: Same Procedure: Right-sided ventricular lead implantation Tunnel right sided lead to the left Left-sided dual-chamber pacemaker removal Left-sided dual-chamber pacemaker implantation Surgeon: Korey Coley MD Estimated blood loss: 20 cc Specimens: None Anesthesia: Local with sedation Complications: Pericardial effusion For ventricular capture with a new lead Procedure details: After obtaining informed consent for the procedure, the patient was brought to the laboratory and prepped and draped in the standard sterile manner. The right prepectoral region was anesthetized with 1% lidocaine local anesthetic and right axillary venipuncture was performed by percutaneous technique and a guidewire placed through the right subclavian vein into the superior vena cava. The area was further infiltrated with 1% lidocaine local anesthetic and a 3 cm incision was made parallel to the right clavicle and 2 cm below it and carried down to the anterior pectoralis fascia. A 7 Japanese [employer] lead introducer was placed over the guidewire into the right subclavian vein, the dilator and guidewire were removed and a left bundle branch sheath was advanced through the introducer into position the right ventricle using a guidewire. The sheath was positioned at the interventricular septum and a bipolar lead was advanced to the introducer and screwed into the septum. Very high thresholds were present in the septum, multiple positions were attempted (about 5) without consistent performance. Ultimately this lead was removed and a conventional bipolar active fixation steroid tipped lead was advanced through the introducer into the right atrium. Using a curved stylette this lead was advanced to the right ventricular outflow tract, this lead was then positioned in the ventricle and the right ventricular outflow tract (the chronic lead in the right ventricular apex had poor pacing characteristics). Although characteristics were not ideal this lead was left in this location and pacing and sensing thresholds were evaluated in bipolar configuration and are recorded on the implant data sheet. This lead was then attached to the right pectoralis fascia using 2 sutures of 2-0 silk around the lead collar. Once the lead were in position the left prepectoral region at the site of the old pacemaker was anesthetized with 1% lidocaine local anesthetic and a 5 cm incision was made and carried down to the pacemaker generator. The generator was dissected free of tissue and explanted. The right-sided lead was then tunneled to the left using an introducer placed from the left to the right. Once the lead was in the left prepectoral region it was attached to a new pacemaker and the chronic atrial lead was also attached to the new pacemaker. The old ventricular lead was capped. The pacemaker was placed in the pocket with the leads, needs it and the incision was closed with a running double subcutaneous closure of 3-0 Vicryl followed by running subcuticular closure of 4-0 Vicryl. The left incision was also closed in the same manner. During closure of the incision the patient became hypotensive and hypoxic, a stat echocardiogram was ordered which showed pericardial effusion. It is likely that the perforation occurred with the initial lead fixation attempts although t here is evidence that the new lead may have perforated as well but was able to maintain capture. A stat pericardiocentesis was performed. She did not require intubation but was on pressors and a nonrebreather to maintain oxygen saturation. A unit of blood was given, and the patient was transferred to the ICU. She was conscious at the end of the procedure. [facility] [place] codes Indication for Procedure (1) Malfunction of electrode lead of cardiac pacemaker: Pacing Procedure 1: Pacin Insert permanent lead, dual Procedure 2: Pacin Dual Pacemaker replacement PG Moderate Sedation Codes Moderate Sedation Codes Procedure 1: Sedation/Anesthesia: 20394 Mod Sedation by the same physician;Init15 Min Child Age 5 & Up Procedure 2: Sedation/Anesthesia: 89704 Mod Sedation by the same physician; Ea [id number] Minutes
[2023-11-01] MEDS: fentaNYL citrate PF 100 MCG/2 ML VIAL ONE (12:52)
[2023-11-01] MEDS: MIDAZOLAM HCL 5 MG/ML 1 ML VIAL ONE (12:52)
[2023-11-01] MEDS: NOREPINEPHRINE/D5W 4 MG/250 ML IV ONE (12:53)
[2023-11-01] MEDS: DOBUTamine 500MG / 250ML D5W IV ONE (12:53)
[2023-11-01] MEDS: FUROSEMIDE 40 MG/4 ML VIAL IV ONE (12:53)
[2023-11-01] MEDS: PHENYLEPHRINE 100MCG/ML 5ML SYR ONE (12:53)
[2023-11-01] MEDS: SODIUM BICARB 8.4% INJ 50 MEQ/50 ML SYR IV ONE (12:53)
--- NOTE | 2023-11-01 12:53 | XCELERA ---
[id number]
--- NOTE | 2023-11-01 13:14 | Post Anesthesia Assessment ---
Date of Service November 01, 2023 Post Sedation Assessment Vital Signs Temp Pulse Pulse Resp BP BP BP 11/01/23 12:56 114 H 20 82/51 L 11/01/23 07:40 100 H 18 94/56 L 11/01/23 07:31 36.4 C L 99 H 16 100/59 L 11/01/23 07:30 11/01/23 02:41 36.6 C 72 18 96/60 L 10/31/23 23:29 62 10/31/23 23:03 36.6 C 63 20 93/53 L 10/31/23 20:59 10/31/23 19:44 37.0 C 61 20 113/62 10/31/23 15:01 36.7 C 61 12 95/54 L Pulse Ox O2 Del Method O2 Flow Rate 11/01/23 12:56 100 10 11/01/23 07:40 96 Room Air 11/01/23 07:31 96 Room Air 11/01/23 07:30 Room Air 11/01/23 02:41 95 Room Air 10/31/23 23:29 10/31/23 23:03 95 Room Air 10/31/23 20:59 Room Air 10/31/23 19:44 97 Room Air 10/31/23 15:01 99 Room Air Discharge Sedation Level of Care: Higher Level of Care Post Sedation Plan On clinical assessment, the patient appears to have tolerated the sedation without complications. Patient is recovering as anticipated. Patient will continue to be monitored by nursing and may be discharged when sedation discharge criteria are met per below protocol. Upon Completions of procedure up to 15 minutes continue every 5 minute vital signs and the P.A.R. score; then discharge to a Phase I or Fast Track to Phase II per the following guidelines: * Discharge Patient to appropriate Phase II area if PAR is 8 or greater or return to pre- procedure baseline. The post - procedure orders will be as directed. * If PAR score is less than 8 or not return to pre-procedure baseline then patient will follow Phase I monitoring till PAR is reached for Phase II. The Phase I may be done in procedure room or may call to secure a Phase I area. * If naloxone or flumazenil are used for reversal, hold in Phase I for continued monitoring from when last reversal dose was given for a minimum of 60 minutes or longer pending the nurse and/or physician discretion of patient condition before discharge to Phase II. Please call the Sedation Physician to re-evaluate and complete post-note for discharge to Phase II area. Do NOT discharge from procedure sedation or Phase 1 until post- sedation evaluation note is complete by procedure /sedation MD Sedation Discharge Instructions to be given to the patient at discharge to home.
--- NOTE | 2023-11-01 13:49 | Critical Care Consultation ---
Date of Consultation November 01, 2023 Assessment & Plan (1) Pericardial effusion with cardiac tamponade: Reason Critically Ill: 87-year-old female with pericardial tamponade status post pericardial effusion status post pacemaker lead revision status post pacemaker malfunction PLAN: CV: History of CHF History of atrial fibrillation on amiodarone Complete heart block status post pacemaker placement Pericardial tamponade status post drain placement -Close observation for ongoing bleeding: Currently open drain to gravity Acute arterial hypotension secondary to acute blood loss anemia on chronic anemia -Wean vasoactive's as tolerated Fluids/Renal: Acute kidney injury on chronic kidney disease stage III -Follow creatinine and urine output acute kidney injury present on admission had appeared to be resolving ID: Anti-infectives per electrophysiology given operative procedure GI/Nutrition: Patient may have diet n.p.o. after midnight Heme: Acute blood loss anemia on chronic anemia Repeat H&H pending status post 1 unit transfused packed red blood cells DVT prophylaxis: SCDs as chemical prophylaxis is contraindicated -Patient normally on apixaban however last dose was 48 hours prior in anticipation of the procedure Endocrine: ICU hyperglycemia protocol Vascular access: Continue arterial line and central venous access at this time Code Status: DNR in the event of cardiac arrest Disposition: ICU for ongoing hemodynamic monitoring (2) Malfunction of electrode lead of cardiac pacemaker: (3) Chronic kidney disease with active medical management without dialysis, stage 2 (mild): (4) Acute kidney injury superimposed on CKD: (5) Misadventure during medical care: Supervising Physician Co-Signing Physician Notes I have personally spent 33 minutes of critical care time in the direct management of this patient. This is a life/limb threatening event. This includes time spent evaluating patient, direct bedside care, chart review, placing orders, interpretation of diagnostic studies, discussion with consultants, patient, and/or family members regarding treatment decisions, as well as other required patient management activities. This time is exclusive of all separately billable procedures, and teaching time and separate from and in addition to any other critical care service time. History of Present Illness Reason for Consultation: Status post pericardial drainage secondary to traumatic pericardial effusion associated with tamponade Attending Physician: Shakir Cox DO History of Present Illness Patient is an 87-year-old female who was undergoing a right-sided ventricular lead implantation tunneled right-sided lead to the left with associated left- sided dual-chamber pacemaker removal and subsequent implantation today who unfortunately experienced an acute pericardial effusion and cardiac tamponade. This physiology was immediately recognized and in the cardiac Recruitment Intern a right groin femoral arterial line, right groin venous central access and pericardial drain were all placed emergently. Was an estimated 300 mL of blood loss and at the end of the procedure it was felt there was no continued blood loss into the pericardial space. The drain was left in place. In the interval the patient had been started on dobutamine for blood pressure support. They ordered emergent packed red blood cells to be transfused, the patient had a baseline anemia. I was informed by staff that that the initial unit of packed red blood cells was found to have some issue with a crossmatch. The bedside nurse reported upon that information the infusion was discontinued and sent back to the lab for further analysis. Bedside nurse estimates approximately 50 mL of blood may have been transfused prior to this notification. Patient did not appear to have any acute transfusion related reactions, the patient was still relatively hypotensive after the pericardial drain placement and on vasoactive's so we proceeded to transfuse 1 unit of packed red blood cells under the presumption of acute blood loss secondary to the procedure and end organ ischemia. The patient was still under the influence of sedatives during my initial evaluation. Subsequently the patient's mental status has improved she is alert and oriented and conversant. She has mild pain at the pericardial drain site. I discussed the case with Dr. Healy of electrophysiology. She was mildly tachycardic and her blood pressure systolic was hovering in the 90s MAP was a little on the low side 50s to 55 mean arterial pressure. She had a wide-complex tachycardia at approximately 114 but appeared to have atrial sensing and capture. Not withstanding the above patient had been admitted on October 24 for a fall which subsequent to the pacemaker malfunction was noted, patient additionally had hyperkalemia, chronic kidney disease stage III. Allergies Allergy/AdvReac Type Severity Reaction Status Date / Time Penicillins Allergy Intermediate Hives; Verified 10/25/23 11:02 SYNCOPE heparin AdvReac Severe Thrombocytopenia; Verified 10/25/23 11:02 NEUTROPENIA Home Medications Medication Instructions Recorded Confirmed Type ezetimibe 10 mg-simvastatin 40 mg 1 tab PO PM ##0 09/19/06 10/25/23 History tablet (Vytorin) nitroglycerin 0.4 mg sublingual 0.4 mg sublingual UD PRN Chest 04/05/13 10/25/23 History tablet (Nitrostat) Pain #0 BTLS allopurinol 300 mg tablet 300 mg PO QAM ##90 02/13/17 10/25/23 History aspirin 81 mg chewable tablet 81 mg PO QAM 04/22/21 10/25/23 History isosorbide mononitrate 30 mg 30 mg PO QAM 05/19/21 10/25/23 History tablet,extended release 24 hr alendronate 70 mg tablet (Fosamax) 70 mg PO WK 05/03/22 10/25/23 History acetaminophen 500 mg tablet 500 mg PO QID PRN Pain 11/10/22 10/25/23 History (Tylenol Extra Strength) empagliflozin 10 mg tablet 10 mg PO DAILY #90 tabs 05/13/23 10/25/23 Rx (Jardiance) metoprolol succinate 50 mg 50 mg PO QAM #90 tabs 08/18/23 10/25/23 Rx tablet,extended release 24 hr amiodarone 200 mg tablet 200 mg PO BID #180 tabs 09/13/23 10/25/23 Rx spironolactone 25 mg tablet 25 mg PO DAILY #90 tabs 10/04/23 10/25/23 Rx apixaban 2.5 mg tablet 2.5 mg PO BID 10/21/23 10/25/23 History Patient History Medical History Syncope and collapse Non-ST elevation VT (NSTEMI) Loose stools Hx of pancreatitis Peripheral vascular disease Osteopenia 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, "treated" Hypercholesterolemia Paroxysmal atrial fibrillation follows w/Dr Springer CAD (coronary artery disease) stent x1 (1998) History of pelvic mass Chronic kidney disease, stage 3 Gout Hearing deficit bilateral hearing aids Hypertension Hyperlipidemia Pacemaker [employer], last checked 07/2022 Surgical History S/P left inguinal hernia repair (11/18/22) Open Left Inguinal Hernia Repair with Mesh(Left) - Je Quijano DO Hx laparoscopic cholecystectomy (11/18/22) Open Left Inguinal Hernia Repair with Mesh(Left) - Je Quijano DO S/P cardiac pacemaker procedure S/P ORIF (open reduction internal fixation) fracture right hip S/P trigger finger release History of cochlear implant since removed History of herniorrhaphy Open RIH repair with mesh 08-26-2016 Dr. Quijano History of cholecystectomy History of cataract surgery b/l History of heart artery stent 1999- x 1 stent [facility] [place] Family History Family/Other Hearing loss Father Heart disease Mother Cancer type not documented on new patient form Other No family history of adverse response to anesthesia No family history of bleeding disorder Denies family history of Ovarian cancer Chronic kidney disease Breast cancer Colorectal cancer Social History Smoking Status: Former smoker Age Started Using Tobacco: 43; Age Quit Using Tobacco: 63; packs per day: 0.5; Cigarettes Per Day: quit 1998; Second Hand Exposure: Yes (hx); Do You Dip or Chew Tobacco: No; Hx Alcohol Use: Yes Alcohol type: wine Alcohol Intake Frequency: Monthly or Less Hx Substance Use: No Preferred Language: Wolof Communication Ability: Effective Visual Impairment: No Limitations Strategic Partner Development Manager Required: No Beliefs That Will Affect Care: None marital status: / Current Living Situation: Family Current Living Situation Comment: sons How many Children do You have: 5 Feels Safe at Home: Yes Diet: regular during the past year weight has: decreased > 10 lbs Assistive Devices: Cane and Walker Physical Exam Physical Exam: General: Arousable to noxious stimuli: Later improved to alert and oriented x 3. Skin: Cool Head: Atraumatic Ears, nose, mouth and throat: airway patent Cardiovascular: Wide-complex tachycardia rate of approximately 114 noted on bedside monitor Chest: Pericardial drain present and sutured in place secured with Tegaderms Respiratory: no respiratory distress Gastrointestinal: Non distended Musculoskeletal: No deformity Results & Data Results & Data Vital Signs (Past 12 Hours) Vital Signs Temp Pulse Pulse Resp BP BP BP 11/01/23 13:18 35.5 C L 115 H 24 87/43 L 11/01/23 13:17 35.6 C L 116 H 24 81/42 L 11/01/23 12:56 114 H 20 82/51 L 11/01/23 07:40 100 H 18 94/56 L 11/01/23 07:31 36.4 C L 99 H 16 100/59 L 11/01/23 07:30 11/01/23 02:41 36.6 C 72 18 96/60 L Pulse Ox O2 Del Method O2 Flow Rate 11/01/23 13:18 95 8 11/01/23 13:17 100 10 11/01/23 12:56 100 10 11/01/23 07:40 96 Room Air 11/01/23 07:31 96 Room Air 11/01/23 07:30 Room Air 11/01/23 02:41 95 Room Air Critical Care Results & Data Vital Signs (Past 12 Hours) Vital Signs Temp Pulse Pulse Resp BP BP BP 11/01/23 14:45 35.5 C L 116 H 24 11/01/23 14:30 35.5 C L 115 H 18 11/01/23 14:15 35.4 C L 117 H 21 11/01/23 14:00 35.4 C L 115 H 16 11/01/23 14:00 35.4 C L 117 H 22 93/42 L 11/01/23 13:45 35.5 C L 115 H 19 11/01/23 13:33 35.4 C L 22 90/43 L 11/01/23 13:30 35.5 C L 114 H 18 11/01/23 13:25 78/50 L 11/01/23 13:25 35.6 C L 115 H 17 11/01/23 13:18 35.5 C L 115 H 24 87/43 L 11/01/23 13:17 35.6 C L 116 H 24 81/42 L 11/01/23 13:15 35.6 C L 117 H 23 11/01/23 13:00 35.6 C L 105 H 18 11/01/23 13:00 76/48 L 11/01/23 12:56 114 H 20 82/51 L 11/01/23 12:45 113 H 19 11/01/23 12:40 82/51 L 11/01/23 12:40 114 H 19 11/01/23 12:39 114 H 19 11/01/23 07:40 100 H 18 94/56 L 11/01/23 07:31 36.4 C L 99 H 16 100/59 L 11/01/23 07:30 Pulse Ox O2 Del Method O2 Flow Rate 11/01/23 14:45 100 11/01/23 14:30 100 11/01/23 14:15 100 11/01/23 14:00 97 11/01/23 14:00 100 8 11/01/23 13:45 100 11/01/23 13:33 100 8 11/01/23 13:30 100 11/01/23 13:25 11/01/23 13:25 100 11/01/23 13:18 95 8 11/01/23 13:17 100 10 11/01/23 13:15 100 11/01/23 13:00 100 11/01/23 13:00 11/01/23 12:56 100 10 11/01/23 12:45 99 11/01/23 12:40 11/01/23 12:40 100 11/01/23 12:39 100 11/01/23 07:40 96 Room Air 11/01/23 07:31 96 Room Air 11/01/23 07:30 Room Air Lab & Micro Results (Past 24 Hours) RBC 3.20 M/uL (4.20-5.40) L 11/01/23 WBC 5.34 K/ul (4.8-10.8) 11/01/23 Hgb 8.1 g/dl (12.0-16.0) L 11/01/23 Hct 26.7 % (37.0-47.0) L 11/01/23 MCV 83.4 fL (80.0-100.0) 11/01/23 MCH 25.3 pg (25.0-34.0) 11/01/23 MCHC 30.3 g/dL (32.0-36.0) L 11/01/23 RDW Standard Deviation 47.2 fL (36.4-46.3) H 11/01/23 RDW Coefficient of Variation 16.3 % (11.5-14.5) H 11/01/23 Plt Count 162 K/uL (130-400) 11/01/23 MPV 9.7 fL (9.4-12.4) 11/01/23 Nucleated Red Blood Cells % (auto) 0.4 % 10/31 Nucleated RBC Absolute Count (auto) 0.02 K/uL (0.00-0.12) 0 11/01/23 Neutrophils (%) (Auto) 76.6 % 11/01/23 Lymphocytes (%) (Auto) 11.4 % 11/01/23 Monocytes # (Auto) 0.55 K/uL (0.11-0.59) 11/01/23 Eosinophils # (Auto) 0.00 K/uL (0.00-0.50) 11/01/23 Immature Granulocyte % (Auto) 1.3 % 11/01/23 Neutrophils # (Auto) 4.09 K/uL (1.40-6.50) 11/01/23 Lymphocytes # (Auto) 0.61 K/uL (1.20-3.40) L 11/01/23 Monocytes # (Auto) 0.55 K/uL (0.11-0.59) 11/01/23 Eosinophils # (Auto) 0.00 K/uL (0.00-0.50) 11/01/23 Basophils # (Auto) 0.02 K/uL (0.00-0.20) 11/01/23 Immature Granulocyte # (Auto) 0.07 K/uL (0.01-0.20) 4 Na 131 mmol/L (136-145) L 11/01/23 K 5.2 mmol/L (3.5-5.1) H 11/01/23 Cl 104 mmol/L (98-107) 11/01/23 CO2 23 mmol/L (21-32) 11/01/23 Anion Gap 4 (3-11) 11/01/23 BUN 12 mg/dl (6-23) 11/01/23 Creatinine 0.92 mg/dl (0.6-1.2) 11/01/23 Estimated GFR ( Amer) 65.3 ml/min 11/01/23 Estimated GFR (Non-Af Amer) 56.4 ml/min 11/01/23 BUN/Creatinine Ratio 13.0 (10-20) 11/01/23 Glu 82 mg/dl (70-99(Fasting)) 11/01/23 Ca 7.8 mg/dl (8.6-10.3) L 11/01/23 Calcium Level 7.8 mg/dl (8.6-10.3) L 11/01/23 06:52 I & O Totals 24 Hours 10/31/23 11/01/23 11/02/23 06:59 06:59 06:59 Intake Total 1165 / 1165 640 / 640 310 / 310 Output Total 552 / 552 353 / 353 1015 / 1015 Balance 613 / 613 287 / 287 -705 / -705 Cumulative 10/25/23 08:57 thru 11/01/23 14:49 Intake Total 9644.9 Output Total 4676 Balance 4968.9 RT Ventilator Mngmt (Last Documented) Ventilator Ordered Settings Respiratory Rate 24 11/01/23 14:45 Ventilator - PT Measurements Respiratory Rate 24 Coding Level of Care Code 80515 CRITICAL CARE 1ST 30-74M Diagnoses Pericardial effusion with cardiac tamponade I31.39; I31.4 Malfunction of electrode lead of cardiac pacemaker T82.198A Chronic kidney disease with active medical management without dialysis, stage 2 (mild) N18.2 Acute kidney injury superimposed on CKD N17.9; N18.9 Misadventure during medical care Y69
--- NOTE | 2023-11-01 14:13 | Operative Report ---
LA[facility] Post Operative Report Pre & Post Diagnosis Operation Date: 11/01/23 08:00 <No data on this case meets the specified criteria> Brief description: I was asked to see the patient regarding post pacemaker lead pericardial effusion and cardiac tamponade. On my arrival, patient was sedated and on a bag mask. The crime scene technician had imaging demonstrating pericardial effusion and echo evidence of cardiac tamponade. Patient had IV fluids running wide open and was on vasopressor support. was completing closure of the pacemaker operative site. Once he completed his procedure we initiated pericardiocentesis as follows: Soft tissues of the subxiphoid area were anesthetized using 5 mL of 1% Xylocaine. Using the echo for guidance a micropuncture needle was advanced with negative pressure aspiration to the pericardium and then pericardial fluid (blood) was aspirated. Micropuncture sheath was advanced into the pericardial space. Fluoroscopy was utilized to confirm placement of the guidewire and sheath. Agitated saline (bubbles) was then injected through the sheath and bubbles were noted in the pericardial space on echo. Further confirming appropriate placement of the sheath. The micropuncture sheath was then exchanged over a long J-tip wire for the dilator. After dilation the pericardial pigtail drain was then advanced over the J-wire and positioned in the pericardial space. The guidewire was removed and we aspirated 300 mL of bloody pericardial fluid. Patient's blood pressure improved and the heart rate slowed to normal. The pericardial effusion was seen on echo to be significantly diminished. The pericardial drain was sutured in place with the tubing and collection bag connected. We next proceeded with placement of arterial and venous lines. We attempted right radial artery access but after multiple attempts were unsuccessful. Decision was made to proceed with femoral arterial and venous access. Soft tissue the right groin were anesthetized using 10 mL of 1% Xylocaine. Using ultrasound for guidance (image saved), the right femoral artery was accessed and a 5 Congolese femoral artery sheath was placed. Still using the ultrasound for guidance, the right femoral vein was then accessed and a 5 Congolese femoral venous sheath was placed. These were each flushed and then sutured in place. After all accessed areas were dressed, the patient was then transported to the ICU for further workup and management. This ended the case. Summary: 1. Successful pericardiocentesis performed for acute tamponade following pacemaker lead placement. 2. Successful right femoral artery and right femoral venous sheath placement. I identified the patient and participated in the time-out.: Yes Procedure Operation Date: 11/01/23 08:00 Actual Procedures p Pacer with Ventricular Lead - Korey Coley MD p Pacer Gen Change Dual - Korey Coley MD s Insertion Single Lead Only - Korey Coley MD s Pericardiocentesis - Thomas Ramires MD, PhD s Ultrasound Vascular Access - Thomas Ramires MD, PhD Surgeon Thomas Ramires MD, PhD Mechanical Facilities Technician MADELYN PALOMARES Estimated Blood Loss 305 Findings Consistent with Post-Op Diagnosis Sanguinous pericardial effusion consistent with predominantly blood containing fluid. Immediate resolution of pericardial tamponade post pericardiocentesis Fluids Normal saline IV fluid Specimens None Drains Pericardial pigtail catheter. Anesthesia Type RN Sedation Complications None Disposition Disposition: Surgical ICU Indications Acute cardiac tamponade Description of Procedure See above I attest to the content of the Intraoperative Record and any orders documented therein. Any exceptions are noted below.
[2023-11-01] MEDS: SODIUM CHLORIDE 0.9% 1,000 ML IV SCH (14:50)
--- NOTE | 2023-11-01 15:03 | Electrocardiogram Report ---
Test Reason : Blood Pressure : / mmHG Vent. Rate : 115 BPM Atrial Rate : 115 BPM P-R Int : 000 ms QRS Dur : 208 ms QT Int : 436 ms P-R-T Axes : 114 -09 -55 degrees QTc Int : 603 ms Ventricular-paced rhythm Abnormal ECG When compared with ECG of 26-OCT-2023 05:08, Vent. rate has increased BY 22 BPM Confirmed by Gonzalez Felipe ([id number]) on 11/01/2023 3:03:28 PM Referred By: REFERRED SELF Confirmed By:Jamison Felipe
[2023-11-01 15:27] LABS: Base Excess VBG -2.6 mEq/L; HCO3 VBG 24 mmol/L; Oxygen Saturation VBG 85.6 %; PCO2 VBG 46 mmHg (38-50); PO2 VBG 49 mmHg; pH VBG 7.32 (7.36-7.41)
[2023-11-01 15:30] LABS: Hematocrit (blood only) 28.1 % (37.0-47.0)
[2023-11-01 15:49] LABS: BUN Creatinine Ratio 11.3 (10-20); Calcium 7.3 mg/dl (8.6-10.3); Creatinine Clr Calc Pharmacy 30.1 ml/min; Est GFR (African American) 55.1 ml/min; Est GFR (Non-African American) 47.5 ml/min; Potassium 4.9 mmol/L (3.5-5.1)
[2023-11-01 15:54] LABS: Partial Thromboplastin Ratio 1.2; Partial Thromboplastin Time 34 Seconds (21-31); Prothrombin Time 11.4 Seconds (9.0-12.0)
--- NOTE | 2023-11-01 16:00 | XRay Report ---
XR chest 1V portable CLINICAL HISTORY: post pacer procedure, pericardial drain TECHNIQUE: Single frontal radiograph of the chest was obtained. Comparison: Comparison is made to chest radiograph 10/28/2023 FINDINGS: An implanted pacemaker is seen with a new lead is noted. Cardiomegaly is noted. The aortic arch is ca lcified. Airspace opacities are seen in the perihilar lungs and right upper lung. No evidence of pleu ral effusion or pneumothorax. IMPRESSION: 1. No evidence of pneumothorax status post placement of pacemaker lead. 2. More prominent airspace opacities may reflect atelectasis, pneumonia, and/or aspiration. ACT 112: Negative or not required by law. Electronically signed by: Gee Zavala M.D. 11/01/2023 3:59 PM
--- NOTE | 2023-11-01 16:16 | Hospitalist Progress Note ---
Date of Service November 01, 2023 Assessment & Plan (1) Acute kidney injury: (2) Chronic kidney disease with active medical management without dialysis, stage 2 (mild): (3) Hyperkalemia: (4) Pacemaker malfunction: (5) CAD (coronary artery disease): (6) Paroxysmal atrial fibrillation: Plan Pt is a 87 yo female with a past medical history of pacemaker for Mobitz type 2 block, previous syncope with ventricular tachycardia, CKD stage 2, CHF, paroxysmal afib, and HTN who presents to the hospital on 10/24 for mechanical fall and admitted for PT/OT recs and for pacemaker malfunction. #Mechanical fall with walker - CT head negative - CTAP significant for S3 fracture - Fall precautions - PT/OT; recommend rehab #Pacemaker Malfunction - presented with pacemaker loss of capture, pacing output maximized with subsequent capture, paced in the 60s overnight - Pacemaker revision performed on 11/01/23. Pt w/pericardial effusion requiring pericardicentesis and drain placement occurred; pt in ICU with hatch boss consult #IGNACIO in patient with CKD, resolved - Likely secondary to volume contraction, potentially also exacerbated by reduced cardiac output in the setting of pacemaker malfunction. - Nephrology consulted, appreciate recs: - Encourage PO fluids - Jardiance, spironolactone held in the setting of IGNACIO okay restart at discharge #Hyperkalemia - Improved, today was 5.2 - Lokelma discontinued - Low K diet - Consider lowering dose of spironolactone at discharge #Anemia, chronic: - Hgb 9.0 on admission, then 7.1 (10/26), 7.6 - IV Venofer x4 days, day 4 of 4 today - H&H checks, transfuse for Hgb <7 or if symptomatic - stool occult positive, recommend outpatient workup/colonoscopy since hgb stable here VTE ppx: Eliquis Admission and Anticipated Discharge Date Admission Date: October 25, 2023 Supervising Physician Co-Signing Physician Notes ATTESTATION I also saw the patient and confirmed clark portions of the history and exam. I agree with the impression and plan in the resident documentation, and as summarized below. Patient underwent revision of pacemaker with complication of acute pericardial effusion with cardiac tamponade, with subsequent emergent pericardial centesis with placement of pericardial drain, post procedure transferred to the ICU for Critical Care Services. Currently, the patient remains under care of the Mainframe Programmer Analyst team; one unit PRBCs running, dobutamine for pressure support. EXAM 93/42, 116, 24, 100% room air Sleeping at present CV tachycardic, regular; Pericardial drain present Respiration non labored DATA Labs HgB 9.0 (15:12) Potassium 4.9 (15:12) Imaging CXR today in ICU 1. No evidence of pneumothorax status post placement of pacemaker lead. 2. More prominent airspace opacities may reflect atelectasis, pneumonia, and/or aspiration. Micro Urine culture dated three organisms, moderate counts. IMPRESSION & PLAN Acute pericardial effusion with cardiac tamponade, with subsequent emergent pericardiocentesis with placement of pericardial drain S/P placement of right-sided ventricular lead IGNACIO with history of CKD, stage G2/A3 Anemia, iron deficiency Anemia, post procedural Paroxysmal atrial fibrillation, on systemic anticoagulation (currently held) Patient remains in the ICU for ongoing hemodynamic monitoring and support Follow hemodynamics, wean pressor support as able Observe for ongoing bleeding; systemic anticoagulation on hold Monitor urine output and serum creatinine Additional per resident documentation Subjective Pt is a 87 yo female with a past medical history of pacemaker for Mobitz type 2 block, previous syncope with ventricular tachycardia, CKD stage 2, CHF, paroxysmal afib, and HTN who presents to the hospital on 10/24 for mechanical fall and admitted for PT/OT recs and for pacemaker malfunction. Patient seen and evaluated at bedside s/p pacemaker revision procedure. During procedure perforation occurred with resultant pericardial effusion. Pericardiocentesis and drain placement were performed. Pt moved to ICU post op on pressors. Received one unit of blood. At time of exam MAPs were acceptable, pt was under warming blanket and ROS was limited due to sedation. Review of Systems Review of Systems: reviewed, per HPI Physical Exam Physical Exam: Constitutional: not interactive, sedated, on non-rebreather, under warming blanket, large output noted in pericardial drain, pepe cath in place and draining appropriately Results & Data Results & Data Vital Signs (Past 12 Hours) Vital Signs Temp Pulse Pulse Resp BP BP BP 11/01/23 14:45 35.5 C L 116 H 24 11/01/23 14:30 35.5 C L 115 H 18 11/01/23 14:15 35.4 C L 117 H 21 11/01/23 14:00 35.4 C L 115 H 16 11/01/23 14:00 35.4 C L 117 H 22 93/42 L 11/01/23 13:45 35.5 C L 115 H 19 11/01/23 13:33 35.4 C L 22 90/43 L 11/01/23 13:30 35.5 C L 114 H 18 11/01/23 13:25 78/50 L 11/01/23 13:25 35.6 C L 115 H 17 11/01/23 13:18 35.5 C L 115 H 24 87/43 L 11/01/23 13:17 35.6 C L 116 H 24 81/42 L 11/01/23 13:15 35.6 C L 117 H 23 11/01/23 13:00 35.6 C L 105 H 18 11/01/23 13:00 76/48 L 11/01/23 12:56 114 H 20 82/51 L 11/01/23 12:45 113 H 19 11/01/23 12:40 82/51 L 11/01/23 12:40 114 H 19 11/01/23 12:39 114 H 19 11/01/23 07:40 100 H 18 94/56 L 11/01/23 07:31 36.4 C L 99 H 16 100/59 L 11/01/23 07:30 Pulse Ox O2 Del Method O2 Flow Rate 11/01/23 14:45 100 11/01/23 14:30 100 11/01/23 14:15 100 11/01/23 14:00 97 11/01/23 14:00 100 8 11/01/23 13:45 100 11/01/23 13:33 100 8 11/01/23 13:30 100 11/01/23 13:25 11/01/23 13:25 100 11/01/23 13:18 95 8 11/01/23 13:17 100 10 11/01/23 13:15 100 11/01/23 13:00 100 11/01/23 13:00 11/01/23 12:56 100 10 11/01/23 12:45 99 11/01/23 12:40 11/01/23 12:40 100 11/01/23 12:39 100 11/01/23 07:40 96 Room Air 11/01/23 07:31 96 Room Air 11/01/23 07:30 Room Air Resident Activity Tracking Resident Involvement: Resident Care Provided Care Provided: Adult Hospital Medicine
[2023-11-01] MEDS: ICU Protocol for HYPERglycemia SCH (17:41)
[2023-11-01] MEDS ORDERED: STAT IV Infusion **Titration per Protocol STA ×2 (21:23→23:11)
--- NOTE | 2023-11-01 21:29 | Communication Note ---
Date of Service: November 01, [id number]- Patient with decrease in Urine output 15ml for past 1.5 hours. BP marginal, she has been on Dobutamine 5-10mck/kg/min since coming from [facility] label[facility]. A/P- Will provide 250 ml fluid bolus - Place order for the Dobutamine infusion - Continue to follow closely as she has history of volume overload with prior admissions - Previous EF noted at 40-45% - If UO remains low and MAPS remain low consider weaning off Dobutamine and replace with FITO. - do note her baseline blood pressures are also on the lower side 90-105/40-50s Alfie PATIÑO ([facility]-)
[2023-11-01] MEDS: PLASMA-LYTE A 250 ML IV ONE (21:36)
[2023-11-01] MEDS: LACTATED RINGER'S 250 ML IV ONE (21:41)
[2023-11-01] MEDS: DOBUTamine / D5W 500 MG/250 ML BAG IV SCH (21:43)
[2023-11-01] MEDS: PHENYLEPHRINE/NSS 25 MG/250 ML BAG IV SCH (23:26)
[2023-11-01] MEDS: ONDANSETRON INJ 2 MG/ML 2 ML VIAL IV STA (23:35)
[2023-11-01] MEDS: PHENYLEPHRINE HCL 25 MG/250 ML NSS IV ONE (23:37)
[2023-11-02 05:33] LABS: BUN Creatinine Ratio 12.8 (10-20); Calcium 7.4 mg/dl (8.6-10.3); Creatinine Clr Calc Pharmacy 27.3 ml/min; Est GFR (African American) 48.9 ml/min; Est GFR (Non-African American) 42.2 ml/min; Magnesium 1.5 mg/dl (1.7-2.4); Potassium 5.5 mmol/L (3.5-5.1)
[2023-11-02] MEDS ORDERED: SODIUM PHOSPHATE 3 MMOL/1 ML INFUSION IV STA (06:12)
[2023-11-02] MEDS ORDERED: STAT IV/IM STA (06:12)
[2023-11-02] MEDS: MAGNESIUM SULFATE / D5W 1 GM/100 ML BAG IV SCH ×2 (06:37→23:59)
[2023-11-02] MEDS: CALCIUM GLUCONATE 10% 1,000 MG in SODIUM CHLOR 0.9% MINI-B 50 ML IV SCH (06:37)
[2023-11-02] MEDS: SODIUM CHLORIDE 0.9% IV ONE (06:49)
[2023-11-02] MEDS: SODIUM PHOSPHATE IV ONE (06:49)
[2023-11-02 07:09] LABS: Hematocrit (blood only) 29.5 % (37.0-47.0); Hemoglobin 9.3 g/dl (12.0-16.0); Mean Corpuscular Hemoglobin 26.1 pg (25.0-34.0); Mean Corpuscular Hgb Conc 31.5 g/dL (32.0-36.0); Mean Corpuscular Volume 82.6 fL (80.0-100.0); Mean Platelet Volume 10.6 fL (9.4-12.4); Nucleated RBC % (auto) 0.6 %; Platelet Count 169 K/uL (130-400); RDW Coefficient of Variation 15.9 % (11.5-14.5); Red Blood Count 3.57 M/uL (4.20-5.40); White Blood Count 15.39 K/ul (4.8-10.8)
[2023-11-02 07:10] LABS: Anisocytosis Present; Basophils # (auto) 0.03 K/uL (0.00-0.20); Basophils % (auto) 0.2 %; Hypochromasia Present; Immature Granulocytes # (auto) 0.19 K/uL (0.01-0.20); Immature Granulocytes % (auto) 1.2 %; Lymphocytes # (auto) 0.32 K/uL (1.20-3.40); Lymphocytes % (auto) 2.1 %; Monocytes # (auto) 1.01 K/uL (0.11-0.59); Monocytes % (auto) 6.6 %; Neutrophils # (auto) 13.84 K/uL (1.40-6.50); Neutrophils % (auto) 89.9 %; Polychromasia 1+; Rouleaux 1+; Schistocytes 1+; Tear Drop Cells 1+
--- NOTE | 2023-11-02 09:39 | Critical Care Progress Note ---
Date of Service November 02, 2023 Assessment & Plan (1) Pericardial effusion with cardiac tamponade: Plan: Reason Critically Ill: 87-year-old female with pericardial tamponade status post pericardial effusion status post pacemaker lead revision status post pacemaker malfunction PLAN: CV: History of CHF History of atrial fibrillation on amiodarone Complete heart block status post pacemaker placement Pericardial tamponade status post drain placement -Close observation for ongoing bleeding: Will close drain but drain to remain in order to see if there is significant ongoing fluid accumulation Acute arterial hypotension secondary to acute blood loss anemia on chronic anemia -Converted to phenylephrine: Wean as tolerated -500 mL bolus Fluids/Renal: Acute kidney injury on chronic kidney disease stage III: mildly worse -Follow creatinine and urine output acute kidney injury present on admission had appeared to be resolving ID: Anti-infectives per electrophysiology given operative procedure GI/Nutrition: Will allow patient to eat and drink and n.p.o. after midnight for anticipated return to [facility] tomorrow at 7 AM Heme: Acute blood loss anemia on chronic anemia - given 1 unit of pRBCs, no indication for additional blood product at this time -cold antibody present on repeat screening DVT prophylaxis: SCDs as chemical prophylaxis is contraindicated Endocrine: ICU hyperglycemia protocol Vascular access: Continue arterial line and central venous access at this time Code Status: DNR in the event of cardiac arrest Disposition: ICU for ongoing hemodynamic monitoring (2) Malfunction of electrode lead of cardiac pacemaker: (3) Chronic kidney disease with active medical management without dialysis, stage 2 (mild): (4) Acute kidney injury superimposed on CKD: (5) Misadventure during medical care: Admission and Anticipated Discharge Date Admission Date: October 25, 2023 Supervising Physician Co-Signing Physician Notes I have personally spent 35 minutes of critical care time in the direct management of this patient. This is a life/limb threatening event. This includes time spent evaluating patient, direct bedside care, chart review, placing orders, interpretation of diagnostic studies, discussion with consultants, patient, and/or family members regarding treatment decisions, as well as other required patient management activities. This time is exclusive of all separately billable procedures, and teaching time and separate from and in addition to any other critical care service time. Physical Exam Physical Exam: General: Alert and oriented Skin: Warm dry Head: Atraumatic Ears, nose, mouth and throat: airway patent Cardiovascular: Paced rhythm on bedside monitor Chest: Pericardial drain present and sutured in place secured with Tegaderms Respiratory: no respiratory distress Gastrointestinal: Non distended Musculoskeletal: No deformity Results & Data Results & Data Vital Signs (Past 12 Hours) Vital Signs Temp Pulse Resp BP Pulse Ox O2 Del Method O2 Flow Rate 11/02/23 08:00 70 11/02/23 07:45 Room Air 11/02/23 07:31 70 11/02/23 07:00 37.5 C 69 23 94 11/02/23 06:50 37.5 C 70 26 H 91 11/02/23 06:40 37.5 C 70 23 94 11/02/23 06:30 37.5 C 70 24 96 11/02/23 06:20 37.5 C 70 22 95 11/02/23 06:10 37.4 C 70 22 96 11/02/23 06:00 37.4 C 70 22 95 11/02/23 05:50 37.4 C 70 24 93 11/02/23 05:40 37.4 C 70 21 96 11/02/23 05:30 37.4 C 70 20 95 11/02/23 05:20 37.4 C 70 22 97 11/02/23 05:15 37.4 C 65 22 97 11/02/23 05:00 37.4 C 69 19 96 11/02/23 04:45 37.4 C 69 22 91 11/02/23 04:30 37.4 C 69 22 97 11/02/23 04:15 37.4 C 69 22 95 11/02/23 04:00 37.4 C 64 23 96 11/02/23 03:45 37.4 C 69 24 95 11/02/23 03:30 37.4 C 104 H 22 100 11/02/23 03:15 37.4 C 68 20 91 11/02/23 03:00 37.4 C 104 H 25 H 100 11/02/23 02:45 37.4 C 104 H 28 H 100 11/02/23 02:30 37.4 C 100 H 23 100 11/02/23 02:15 37.4 C 105 H 22 100 11/02/23 02:00 37.4 C 106 H 25 H 100 11/02/23 01:45 37.4 C 106 H 25 H 100 11/02/23 01:30 37.4 C 106 H 24 99 11/02/23 01:15 37.4 C 104 H 25 H 100 11/02/23 01:00 37.4 C 74 29 H 97 11/02/23 00:45 37.3 C 105 H 19 100 11/02/23 00:30 37.3 C 105 H 19 100 11/02/23 00:21 35.4 C L 113 H 26 H 80/48 L 98 5 11/02/23 00:15 37.3 C 69 21 100 11/02/23 00:00 37.3 C 105 H 24 98 11/02/23 00:00 113 H 11/01/23 23:45 37.3 C 104 H 22 92 11/01/23 23:30 37.2 C 108 H 22 100 11/01/23 23:15 37.2 C 110 H 22 100 11/01/23 23:00 37.1 C 114 H 26 H 99 11/01/23 22:55 37.1 C 113 H 34 H 90 11/01/23 22:55 78/50 L 11/01/23 22:45 37.1 C 117 H 24 100 11/01/23 22:30 37.1 C 119 H 21 100 11/01/23 22:15 37.1 C 113 H 28 H 96 11/01/23 22:00 37.1 C 106 H 26 H 98 11/01/23 21:45 37.2 C 113 H 26 H 98 Critical Care Results & Data Vital Signs (Past 12 Hours) Vital Signs Temp Pulse Resp BP Pulse Ox O2 Del Method O2 Flow Rate 11/02/23 08:00 70 11/02/23 07:45 Room Air 11/02/23 07:31 70 11/02/23 07:00 37.5 C 69 23 94 11/02/23 06:50 37.5 C 70 26 H 91 11/02/23 06:40 37.5 C 70 23 94 11/02/23 06:30 37.5 C 70 24 96 11/02/23 06:20 37.5 C 70 22 95 11/02/23 06:10 37.4 C 70 22 96 11/02/23 06:00 37.4 C 70 22 95 11/02/23 05:50 37.4 C 70 24 93 11/02/23 05:40 37.4 C 70 21 96 11/02/23 05:30 37.4 C 70 20 95 11/02/23 05:20 37.4 C 70 22 97 11/02/23 05:15 37.4 C 65 22 97 11/02/23 05:00 37.4 C 69 19 96 11/02/23 04:45 37.4 C 69 22 91 11/02/23 04:30 37.4 C 69 22 97 11/02/23 04:15 37.4 C 69 22 95 11/02/23 04:00 37.4 C 64 23 96 11/02/23 03:45 37.4 C 69 24 95 11/02/23 03:30 37.4 C 104 H 22 100 11/02/23 03:15 37.4 C 68 20 91 11/02/23 03:00 37.4 C 104 H 25 H 100 11/02/23 02:45 37.4 C 104 H 28 H 100 11/02/23 02:30 37.4 C 100 H 23 100 11/02/23 02:15 37.4 C 105 H 22 100 11/02/23 02:00 37.4 C 106 H 25 H 100 11/02/23 01:45 37.4 C 106 H 25 H 100 11/02/23 01:30 37.4 C 106 H 24 99 11/02/23 01:15 37.4 C 104 H 25 H 100 11/02/23 01:00 37.4 C 74 29 H 97 11/02/23 00:45 37.3 C 105 H 19 100 11/02/23 00:30 37.3 C 105 H 19 100 11/02/23 00:21 35.4 C L 113 H 26 H 80/48 L 98 5 11/02/23 00:15 37.3 C 69 21 100 11/02/23 00:00 37.3 C 105 H 24 98 11/02/23 00:00 113 H 11/01/23 23:45 37.3 C 104 H 22 92 11/01/23 23:30 37.2 C 108 H 22 100 11/01/23 23:15 37.2 C 110 H 22 100 11/01/23 23:00 37.1 C 114 H 26 H 99 11/01/23 22:55 37.1 C 113 H 34 H 90 11/01/23 22:55 78/50 L 11/01/23 22:45 37.1 C 117 H 24 100 11/01/23 22:30 37.1 C 119 H 21 100 11/01/23 22:15 37.1 C 113 H 28 H 96 11/01/23 22:00 37.1 C 106 H 26 H 98 11/01/23 21:45 37.2 C 113 H 26 H 98 Lab & Micro Results (Past 24 Hours) RBC 3.57 M/uL (4.20-5.40) L 11/02/23 WBC 15.39 K/ul (4.8-10.8) H 11/02/23 Hgb 9.3 g/dl (12.0-16.0) L 11/02/23 Hct 29.5 % (37.0-47.0) L 11/02/23 MCV 82.6 fL (80.0-100.0) 11/02/23 MCH 26.1 pg (25.0-34.0) 11/02/23 MCHC 31.5 g/dL (32.0-36.0) L 11/02/23 RDW Standard Deviation 46.0 fL (36.4-46.3) 11/02/23 RDW Coefficient of Variation 15.9 % (11.5-14.5) H 11/02/23 Plt Count 169 K/uL (130-400) 11/02/23 MPV 10.6 fL (9.4-12.4) 11/02/23 Nucleated Red Blood Cells % (auto) 0.6 % 11/01 Nucleated RBC Absolute Count (auto) 0.10 K/uL (0.00-0.12) 0 11/02/23 Neutrophils (%) (Auto) 89.9 % 11/02/23 Lymphocytes (%) (Auto) 2.1 % 11/02/23 Monocytes # (Auto) 1.01 K/uL (0.11-0.59) H 11/02/23 Eosinophils # (Auto) 0.00 K/uL (0.00-0.50) 11/02/23 Immature Granulocyte % (Auto) 1.2 % 11/02/23 Neutrophils # (Auto) 13.84 K/uL (1.40-6.50) H 11/02/23 Lymphocytes # (Auto) 0.32 K/uL (1.20-3.40) L 11/02/23 Monocytes # (Auto) 1.01 K/uL (0.11-0.59) H 11/02/23 Eosinophils # (Auto) 0.00 K/uL (0.00-0.50) 11/02/23 Basophils # (Auto) 0.03 K/uL (0.00-0.20) 11/02/23 Immature Granulocyte # (Auto) 0.19 K/uL (0.01-0.20) 4 Polychromasia 1+ 11/02/23 Hypochromasia Present 11/02/23 Anisocytosis Present 11/02/23 Tear Drop Cells 1+ 11/02/23 Rouleau 1+ 11/02/23 Schistocytes 1+ 11/02/23 Na 131 mmol/L (136-145) L 11/02/23 K 5.5 mmol/L (3.5-5.1) H 11/02/23 Cl 105 mmol/L (98-107) 11/02/23 CO2 22 mmol/L (21-32) 11/02/23 Anion Gap 4 (3-11) 11/02/23 BUN 15 mg/dl (6-23) 11/02/23 Creatinine 1.17 mg/dl (0.6-1.2) 11/02/23 Estimated GFR ( Amer) 48.9 ml/min 11/02/23 Estimated GFR (Non-Af Amer) 42.2 ml/min 11/02/23 BUN/Creatinine Ratio 12.8 (10-20) 11/02/23 Glu 98 mg/dl (70-99(Fasting)) 11/02/23 Ca 7.4 mg/dl (8.6-10.3) L 11/02/23 Phosphorus Level 2.0 mg/dl (2.5-4.9) L 11/02/23 Mg 1.5 mg/dl (1.7-2.4) L 11/02/23 04:20 Calcium Level 7.4 mg/dl (8.6-10.3) L 11/02/23 04:20 Ionized Calcium 1.09 mmol/L (1.12-1.32) L 11/02/23 04:20 Prothromb Time International Ratio 1.0 (0.9-1.1) 11/01/23 15:1 2 Venous Blood pH 7.32 (7.36-7.41) L 11/01/23 15:12 Venous Blood Partial Pressure CO2 46 mmHg (38-50) 11/01/23 15:1 2 Venous Blood Partial Pressure O2 49 mmHg 11/01/23 15:12 Venous Blood HCO3 24 mmol/L 11/01/23 15:12 Venous Blood Base Excess -2.6 mEq/L 11/01/23 15:12 Venous Blood Oxygen Saturation 85.6 % 11/01/23 15:12 Diagnostic Findings (Past 24 Hours) Chest X-Ray 11/01/23 15:19 XR chest 1V portable CLINICAL HISTORY: post pacer procedure, pericardial drain TECHNIQUE: Single frontal radiograph of the chest was obtained. Comparison: Comparison is made to chest radiograph 10/28/2023 FINDINGS: An implanted pacemaker is seen with a new lead is noted. Cardiomegaly is noted. The aortic arch is calcified. Airspace opacities are seen in the perihilar lungs and right upper lung. No evidence of pleural effusion or pneumothorax. IMPRESSION: 1. No evidence of pneumothorax status post placement of pacemaker lead. 2. More prominent airspace opacities may reflect atelectasis, pneumonia, and/or aspiration. ACT 112: Negative or not required by law. Electronically signed by: Gee Zavala M.D. 11/01/2023 3:59 PM I & O Totals 24 Hours 11/01/23 11/02/23 11/03/23 06:59 06:59 06:59 Intake Total 640 / 640 1173.948 / 1173.948 726.426 / 726.426 Output Total 353 / 353 1335 / 1335 35 / 35 Balance 287 / 287 -161.052 / -161.052 691.426 / 691.426 Cumulative 10/25/23 08:57 thru 11/02/23 09:16 Intake Total 76343.274 Output Total 6991 Balance 6204.274 RT Ventilator Mngmt (Last Documented) Ventilator Ordered Settings Respiratory Rate 23 11/02/23 07:00 Ventilator - PT Measurements Respiratory Rate 23 Coding Level of Care Code 80815 CRITICAL CARE 1ST 30-74M Diagnoses Pericardial effusion with cardiac tamponade I31.39; I31.4 Malfunction of electrode lead of cardiac pacemaker T82.198A Chronic kidney disease with active medical management without dialysis, stage 2 (mild) N18.2 Acute kidney injury superimposed on CKD N17.9; N18.9 Misadventure during medical care Y69
[2023-11-02] MEDS: SODIUM CHLORIDE 0.9% 500 ML IV ONE ×2 (09:48→14:42)
--- NOTE | 2023-11-02 12:16 | Hospitalist Progress Note ---
Date of Service November 02, 2023 Assessment & Plan (1) Acute kidney injury: (2) Chronic kidney disease with active medical management without dialysis, stage 2 (mild): (3) Hyperkalemia: (4) Pacemaker malfunction: (5) CAD (coronary artery disease): (6) Paroxysmal atrial fibrillation: Plan Pt is a 87 yo female with a past medical history of pacemaker for Mobitz type 2 block, previous syncope with ventricular tachycardia, CKD stage 2, CHF, paroxysmal afib, and HTN who presents to the hospital on 10/24 for mechanical fall and admitted for PT/OT recs and for pacemaker malfunction. #Mechanical fall with walker - CT head negative - CTAP significant for S3 fracture - Fall precautions - PT/OT; recommend rehab #Pacemaker Malfunction - presented with pacemaker loss of capture, pacing output maximized with subsequent capture, paced in the 60s overnight - Pacemaker revision performed on 11/01/23. Pt w/pericardial effusion requiring pericardicentesis and drain placement occurred; pt in ICU with airbrush artist technical consult - Continue management per airbrush artist technical, concrete smoother - plan for repeat procedure tomorrow #IGNACIO in patient with CKD, resolved - Likely secondary to volume contraction, potentially also exacerbated by reduced cardiac output in the setting of pacemaker malfunction. - Nephrology consulted, appreciate recs: - Encourage PO fluids - Jardiance, spironolactone held in the setting of IGNACIO okay restart at discharge #Hyperkalemia - Improved, today was 5.2 - Lokelma discontinued - Low K diet - Consider lowering dose of spironolactone at discharge #Anemia, chronic: - Hgb 9.0 on admission, then 7.1 (10/26), 7.6 - IV Venofer x4 days, day 4 of 4 today - H&H checks, transfuse for Hgb <7 or if symptomatic - stool occult positive, recommend outpatient workup/colonoscopy since hgb stable here VTE ppx: [place] Supervising Physician Co-Signing Physician Notes ATTESTATION I also saw the patient and confirmed clark portions of the history and exam. I agree with the impression and plan in the resident documentation, and as summar ized below. I also discussed the case with the critical care team during rounds. Upon initial exam this morning, the patient was lying supine in bed; denies chest pain, shortness of breath; denies any significant pain. While she was on pressor support this morning, upon reexam this afternoon she is off all pressor agents. The pericardial drain has been clamped; unfortunately urine output has continued to be on the low side. She is scheduled to go back to the [facility] tomorrow morning. This afternoon, the patient EXAM 92/58, 110, 20, 37.2, 90% on room air CV tachycardic, regular; paced rhythm on monitor; pericardial drain present Respirations non labored DATA Labs WBC 15.39, hemoglobin 9.3, platelet count 169 Sodium 131, potassium 5.5, BUN 15, creatinine 1.17 IMPRESSION & PLAN Acute pericardial effusion with cardiac tamponade, with subsequent emergent pericardiocentesis with placement of pericardial drain S/P placement of right-sided ventricular lead IGNACIO with history of CKD, stage G2/A3 Anemia, iron deficiency Anemia, post procedural Paroxysmal atrial fibrillation, on systemic anticoagulation (currently held) Patient remains in the ICU for ongoing hemodynamic monitoring and support Additional 500 cc bolus given decreased urine output Follow hemodynamics and urine output Continue to hold Aldactone in setting of mild hyperkalemia No evidence of ongoing bleeding at present; systemic anticoagulation on hold, SCDs for DVT prophylaxis Additional per resident documentation Subjective Pt is a 87 yo female with a past medical history of pacemaker for Mobitz type 2 block, previous syncope with ventricular tachycardia, CKD stage 2, CHF, paroxysmal afib, and HTN who presents to the hospital on 10/24 for mechanical fall and admitted for PT/OT recs and for pacemaker malfunction. Patient seen and evaluated at bedside. Hemodynamics improved overnight. Lead continues to not capture appropriately. Plan to return to EP lab tomorrow. Pericardial drain remains in place, minimal output. UOP remains poor. Pt reports she is feeling as well as can be expected, fatigued. Otherwise no acute complaints. Review of Systems Review of Systems: reviewed, per HPI Physical Exam Physical Exam: Constitutional: Alert, interactive, NAD, pepe in place draining minimal urine, pericardial cath in place with decreasing output HEENT: NCAT, no conjunctival injection CV: paced rate/rhythm, extremities well-perfused, no LE edema Resp: no increased work of breathing MSK: no gross deformities appreciated Skin: femoral central and a-line in place, pepe in place, pericardial drain in place. widespread ecchymosis in areas of line placement Neuro: alert, no focal neurologic deficit appreciated Results & Data Results & Data Vital Signs (Past 12 Hours) Vital Signs Temp Pulse Resp BP Pulse Ox O2 Del Method O2 Flow Rate 11/02/23 12:00 108 H 11/02/23 10:00 37.3 C 108 H 21 96 11/02/23 09:50 37.3 C 109 H 21 96 11/02/23 09:40 37.3 C 72 25 H 95 11/02/23 09:30 37.3 C 71 24 96 11/02/23 09:24 37.3 C 59 L 29 H 93 11/02/23 09:24 100/70 11/02/23 09:20 37.3 C 60 36 H 11/02/23 09:10 37.4 C 72 25 H 96 11/02/23 09:06 37.4 C 72 25 H 93 11/02/23 09:06 70/51 L 11/02/23 09:00 37.4 C 71 21 90 11/02/23 08:50 37.4 C 71 20 88 L 11/02/23 08:43 67/53 L 11/02/23 08:43 37.4 C 71 21 96 11/02/23 08:40 37.4 C 72 26 H 95 11/02/23 08:30 37.4 C 70 29 H 96 11/02/23 08:20 37.4 C 71 18 95 11/02/23 08:10 37.4 C 71 17 95 11/02/23 08:00 37.4 C 71 20 91 11/02/23 08:00 70 11/02/23 07:50 37.5 C 71 19 89 L 11/02/23 07:45 Room Air 11/02/23 07:40 37.5 C 70 18 93 11/02/23 07:31 70 11/02/23 07:30 37.5 C 70 18 91 11/02/23 07:20 37.5 C 69 20 96 11/02/23 07:16 106/61 11/02/23 07:16 37.5 C 69 21 95 11/02/23 07:10 37.5 C 69 20 95 11/02/23 07:00 37.5 C 69 23 94 11/02/23 06:50 37.5 C 70 26 H 91 11/02/23 06:40 37.5 C 70 23 94 11/02/23 06:30 37.5 C 70 24 96 11/02/23 06:20 37.5 C 70 22 95 11/02/23 06:10 37.4 C 70 22 96 11/02/23 06:00 37.4 C 70 22 95 11/02/23 05:50 37.4 C 70 24 93 11/02/23 05:40 37.4 C 70 21 96 11/02/23 05:30 37.4 C 70 20 95 11/02/23 05:20 37.4 C 70 22 97 11/02/23 05:15 37.4 C 65 22 97 11/02/23 05:00 37.4 C 69 19 96 11/02/23 04:45 37.4 C 69 22 91 11/02/23 04:30 37.4 C 69 22 97 11/02/23 04:15 37.4 C 69 22 95 11/02/23 04:00 37.4 C 64 23 96 11/02/23 03:45 37.4 C 69 24 95 11/02/23 03:30 37.4 C 104 H 22 100 11/02/23 03:15 37.4 C 68 20 91 11/02/23 03:00 37.4 C 104 H 25 H 100 11/02/23 02:45 37.4 C 104 H 28 H 100 11/02/23 02:30 37.4 C 100 H 23 100 11/02/23 02:15 37.4 C 105 H 22 100 11/02/23 02:00 37.4 C 106 H 25 H 100 11/02/23 01:45 37.4 C 106 H 25 H 100 11/02/23 01:30 37.4 C 106 H 24 99 11/02/23 01:15 37.4 C 104 H 25 H 100 11/02/23 01:00 37.4 C 74 29 H 97 11/02/23 00:45 37.3 C 105 H 19 100 11/02/23 00:30 37.3 C 105 H 19 100 11/02/23 00:21 35.4 C L 113 H 26 H 80/48 L 98 5 11/02/23 00:15 37.3 C 69 21 100 Resident Activity Tracking Resident Involvement: Resident Care Provided Care Provided: Adult Hospital Medicine
[2023-11-02] MEDS: SODIUM CHLORIDE 0.9% 1,000 ML IV SCH (17:37)
[2023-11-02] MEDS ORDERED: ALBUTEROL 0.083% NEBU SOLN 3 ML VIAL NEB PRN (18:55)
[2023-11-03 04:47] LABS: Basophils # (auto) 0.01 K/uL (0.00-0.20); Basophils % (auto) 0.1 %; Hematocrit (blood only) 25.5 % (37.0-47.0); Hemoglobin 8.6 g/dl (12.0-16.0); Immature Granulocytes # (auto) 0.09 K/uL (0.01-0.20); Immature Granulocytes % (auto) 1.1 %; Lymphocytes # (auto) 0.54 K/uL (1.20-3.40); Lymphocytes % (auto) 6.5 %; Mean Corpuscular Hemoglobin 29.1 pg (25.0-34.0); Mean Corpuscular Hgb Conc 33.7 g/dL (32.0-36.0); Mean Corpuscular Volume 86.1 fL (80.0-100.0); Mean Platelet Volume 10.3 fL (9.4-12.4); Monocytes # (auto) 0.71 K/uL (0.11-0.59); Monocytes % (auto) 8.6 %; Neutrophils # (auto) 6.95 K/uL (1.40-6.50); Neutrophils % (auto) 83.7 %; Nucleated RBC # (auto) 0.06 K/uL (0.00-0.12); Nucleated RBC % (auto) 0.7 %; Platelet Count 150 K/uL (130-400); RDW Coefficient of Variation 19.1 % (11.5-14.5); RDW Standard Deviation 45.9 fL (36.4-46.3); Red Blood Count 2.96 M/uL (4.20-5.40)
[2023-11-03 04:48] LABS: BUN Creatinine Ratio 15.9 (10-20); Calcium 7.4 mg/dl (8.6-10.3); Creatinine Clr Calc Pharmacy 29.8 ml/min; Est GFR (African American) 54.4 ml/min; Magnesium 2.8 mg/dl (1.7-2.4); Phosphorus 2.6 mg/dl (2.5-4.9); Potassium 4.8 mmol/L (3.5-5.1)
--- NOTE | 2023-11-03 07:48 | History & Physical Bridge Note ---
Date of Service November 03, 2023 History & Physical Bridge Note I have examined the patient, reviewed the recent progress notes and in the interval since her last surgery. I have noted the following changes of clinical significance: Her pericardial drain remains in place, her hemodynamics have been stable overnight and her blood count is low but stable. She is slightly hyponatremic but that is not new. Our plan is to reposition the ventricular lead with the pericardial drain in place, it is suspected to be through the wall of the ventricle. Generally we do not get a lot of bleeding when we do this but the drain will make it safer. I reviewed the indications, procedure, risks and alternatives with the patient, and answered all questions. Patient understands and agrees to the procedure. Consent obtained. I also reviewed the risks and use of sedation, patient understands and consent obtained.
--- NOTE | 2023-11-03 07:49 | Pre Anesthesia Assessment ---
Date of Service November 03, 2023 Pre Sedation Assessment Vital Signs Temp Pulse Pulse Resp BP BP BP 11/03/23 07:00 36.9 C 111 H 25 H 11/03/23 07:00 36.9 C 100 H 22 109/75 129/66 11/03/23 06:00 106/61 11/03/23 06:00 36.9 C 111 H 21 11/03/23 06:00 36.9 C 112 H 23 115/63 11/03/23 05:00 36.8 C 111 H 19 100/68 11/03/23 04:00 36.8 C 111 H 19 11/03/23 03:00 36.9 C 111 H 18 11/03/23 02:00 36.9 C 111 H 18 11/03/23 01:00 37.0 C 111 H 18 97/63 L 11/03/23 00:00 37.0 C 112 H 19 99/70 L 11/02/23 23:00 37.1 C 76 21 106/59 L 11/02/23 22:53 74 11/02/23 22:00 11/02/23 22:00 37.3 C 75 20 97/55 L 11/02/23 21:00 37.4 C 78 21 111/61 11/02/23 20:31 37.4 C 76 20 11/02/23 20:00 37.4 C 74 20 110/66 11/02/23 19:00 37.4 C 75 23 11/02/23 18:51 75 11/02/23 17:50 37.4 C 76 28 H 11/02/23 17:44 104/58 L 11/02/23 17:44 37.4 C 76 25 H 11/02/23 17:40 37.4 C 76 26 H 11/02/23 17:30 37.4 C 75 27 H 11/02/23 17:20 37.5 C 0 L 32 H 11/02/23 17:10 37.5 C 0 L 28 H 11/02/23 17:00 37.5 C 120 H 23 11/02/23 16:50 37.4 C 112 H 20 11/02/23 16:40 37.4 C 113 H 22 11/02/23 16:30 37.4 C 112 H 22 11/02/23 16:20 37.4 C 112 H 17 24 16:10 37.4 C 112 H 11/02/23 16:00 37.4 C 112 H 11/02/23 15:00 37.4 C 112 H 11/02/23 14:00 37.3 C 111 H 11/02/23 13:59 112 H 11/02/23 13:09 37.2 C 111 H 11/02/23 13:09 94/60 L 11/02/23 13:03 11/02/23 13:00 37.2 C 110 H 11/02/23 12:50 37.2 C 109 H 11/02/23 12:40 37.2 C 109 H 11/02/23 12:30 37.2 C 107 H 11/02/23 12:20 37.2 C 108 H 11/02/23 12:10 37.2 C 108 H 11/02/23 12:00 37.2 C 109 H 11/02/23 12:00 108 H 11/02/23 11:50 37.2 C 109 H 11/02/23 11:42 92/58 L 11/02/23 11:42 37.2 C 110 H 11/02/23 11:40 37.2 C 110 H 11/02/23 11:30 37.2 C 109 H 11/02/23 11:20 37.2 C 109 H 11/02/23 11:10 37.2 C 109 H 11/02/23 11:00 37.2 C 110 H 11/02/23 10:50 37.2 C 109 H 11/02/23 10:40 37.1 C 101 H 11/02/23 10:30 37.1 C 108 H 11/02/23 10:20 37.2 C 101 H 11/02/23 10:10 37.2 C 130 H 34 H 11/02/23 10:00 37.3 C 108 H 11/02/23 09:50 37.3 C 109 H 11/02/23 09:40 37.3 C 72 25 H 11/02/23 09:30 37.3 C 71 24 11/02/23 09:24 37.3 C 59 L 29 H 11/02/23 09:24 100/70 11/02/23 09:20 37.3 C 60 36 H 11/02/23 09:10 37.4 C 72 25 H 11/02/23 09:06 37.4 C 72 25 H 11/02/23 09:06 70/51 L 11/02/23 09:00 37.4 C 71 21 11/02/23 08:50 37.4 C 71 20 11/02/23 08:43 67/53 L 11/02/23 08:43 37.4 C 71 21 11/02/23 08:40 37.4 C 72 26 H 11/02/23 08:30 37.4 C 70 29 H 11/02/23 08:20 37.4 C 71 18 11/02/23 08:10 37.4 C 71 17 11/02/23 08:00 37.4 C 71 20 11/02/23 08:00 70 11/02/23 07:50 37.5 C 71 19 Pulse Ox O2 Del Method O2 Del Method O2 Flow Rate 11/03/23 07:00 91 11/03/23 07:00 94 Room Air 11/03/23 06:00 11/03/23 06:00 92 11/03/23 06:00 93 Room Air 11/03/23 05:00 92 Room Air 11/03/23 04:00 92 Room Air 11/03/23 03:00 94 Room Air 11/03/23 02:00 91 Room Air 11/03/23 01:00 93 Room Air 11/03/23 00:00 93 Room Air 11/02/23 23:00 94 Room Air 11/02/23 22:53 11/02/23 22:00 Room Air 11/02/23 22:00 94 Room Air 11/02/23 21:00 93 Room Air 11/02/23 20:31 94 Room Air 11/02/23 20:00 94 Room Air 11/02/23 19:00 95 Room Air 11/02/23 18:51 11/02/23 17:50 92 11/02/23 17:44 11/02/23 17:44 92 11/02/23 17:40 93 11/02/23 17:30 92 11/02/23 17:20 83 L 11/02/23 17:10 91 11/02/23 17:00 98 11/02/23 16:50 94 11/02/23 16:40 97 11/02/23 16:30 98 11/02/23 16:20 94 11/02/23 16:10 100 11/02/23 16:00 98 11/02/23 15:00 100 Room Air 11/02/23 14:00 100 11/02/23 13:59 11/02/23 13:09 99 11/02/23 13:09 11/02/23 13:03 Room Air 98 11/02/23 13:00 99 11/02/23 12:50 100 11/02/23 12:40 99 11/02/23 12:30 96 11/02/23 12:20 95 11/02/23 12:10 96 11/02/23 12:00 96 11/02/23 12:00 11/02/23 11:50 96 11/02/23 11:42 11/02/23 11:42 95 11/02/23 11:40 95 11/02/23 11:30 95 11/02/23 11:20 93 11/02/23 11:10 90 11/02/23 11:00 96 11/02/23 10:50 96 11/02/23 10:40 94 11/02/23 10:30 96 11/02/23 10:20 96 11/02/23 10:10 99 11/02/23 10:00 96 11/02/23 09:50 96 11/02/23 09:40 95 11/02/23 09:30 96 11/02/23 09:24 93 11/02/23 09:24 11/02/23 09:20 11/02/23 09:10 96 11/02/23 09:06 93 11/02/23 09:06 11/02/23 09:00 90 11/02/23 08:50 88 L 11/02/23 08:43 11/02/23 08:43 96 11/02/23 08:40 95 11/02/23 08:30 96 11/02/23 08:20 95 11/02/23 08:10 95 11/02/23 08:00 91 11/02/23 08:00 11/02/23 07:50 89 L Cardiovascular RRR, no murmur, no edema Additional Comments: No audible rub Respiratory normal respiratory effort, lungs clear to auscultation Additional Comments: She does have some upper airway sounds but her pulse oximetry is greater than 90% Pre-Sedation Airway Assessment Smoking Status: Former smoker Hx Sleep Apnea: No Hx Difficult Intubation: No Short, Thick Neck: No Thyromental Distance: > or= 3.5 Finger Breadths Oral Cavity: + WNL Mallampati Class: I ASA: ASA3 NPO Status Date of Last Intake of Fluids: 11/02/23 Time of Last Intake of Fluids: 22:00 Date of Last Intake of Solid Food: 11/02/23 Time of Last Intake of Solid Foods: 22:00 Procedure Planning Contraindications for Sedation: none Current Medications Reviewed: Yes Notes The planned sedation has been discussed with the patient. Informed Consent was obtained. I have identified the patient, determined the appropriateness of sedation and have assessed the patient immediately prior to the procedure. All medicine(s) and interventions are by my order.
[2023-11-03] MEDS: LIDOCAINE 1% LOCAL 20 ML VIAL ONE ×2 (09:13→10:33)
[2023-11-03] MEDS: VANCOMYCIN HCL 1000MG/20ML VIAL ONE ×2 (09:14→09:15)
[2023-11-03] MEDS: BACITRACIN OINT 14 GM TUBE ONE (09:14)
[2023-11-03] MEDS: MIDAZOLAM HCL 5 MG/ML 1 ML VIAL ONE (09:14)
[2023-11-03] MEDS: WATER, STERILE FOR INJ 10 ML VIAL ONE ×2 (09:14→09:16)
[2023-11-03] MEDS: fentaNYL citrate PF 100 MCG/2 ML VIAL ONE (09:15)
--- NOTE | 2023-11-03 09:41 | Electrocardiogram Report ---
Test Reason : Blood Pressure : / mmHG Vent. Rate : 112 BPM Atrial Rate : 110 BPM P-R Int : 000 ms QRS Dur : 198 ms QT Int : 454 ms P-R-T Axes : 000 -38 -37 degrees QTc Int : 619 ms Ventricular-paced rhythm Abnormal ECG When compared with ECG of 01-NOV-2023 13:44, Vent. rate has decreased BY 3 BPM Confirmed by Gonzalez Felipe ([id number]) on 11/03/2023 9:41:19 AM Referred By: REFERRED SELF Confirmed By:Jamison Felipe
--- NOTE | 2023-11-03 10:17 | Electrophysiology Report ---
Date of Service November 03, 2023 Electrophysiology Procedure Electrophysiology Procedure Report Preoperative diagnosis: Pacemaker ventricular lead perforation Postoperative diagnosis: Same Procedure: Ventricular lead reposition Surgeon: Korey Coley MD Estimated blood loss: 10 cc Specimens: None Complications: None Disposition: Cardiology recovery unit, ICU Background: On November 01, 2023 a right-sided pacemaker lead was implanted with a lot of difficulty due to very poor ventricular capture thresholds, several leads were used in multiple sites. Ultimately a position was obtained which was acceptable but not good, however during the procedure perforation occurred at some point and a pericardial effusion occurred and had to be drained. The patient recovered well from this however the drain remains in place and the new pacemaker lead has poor measurements as well as no right ventricular tip capture suggesting that it was perforated, although that was probably not the cause of the effusion which likely occurred from a prior position. She is therefore brought to the laboratory for lead repositioning, however this is somewhat complicated by the fact that the lead was tunneled to the left where the pacemaker was located in the chronic atrial lead resides. Procedure details: After obtaining informed consent for the procedure, the patient was brought to the laboratory being NPO after midnight. After identification in the laboratory the patient was prepped and draped in the standard sterile manner for a left-sided device removal/reimplantation and a right-sided lead revision. The left prepectoral region was anesthetized with 1% lidocaine local anesthetic and once adequate anesthesia was obtained a 5 cm incision was made through the recent implant scar and carried down to the pacemaker generator. The generator was dissected free of tissue and explanted. A vancomycin-soaked sponge was placed in the pocket. The abandoned poorly functioning right ventricular lead in the left sided pacemaker pocket was used temporarily by removing the eliu cap, bipolar pacing had appeared to be worsening since several days ago and capture was not consistent even at full temporary pacemaker output in bipolar or unipolar configuration using the tip electrode, however using the ring electrode capture was complete although with very high thresholds. This configuration was therefore used throughout the case with repositioning the new ventricular lead. The right side did lead insertion site was anesthetized with 1% lidocaine local anesthetic and a 3 cm incision was made through the old implant scar to expose the lead sewing collar. The sutures were removed from the collar. A 10-1/2 Pashto lead introducer was advanced over the lead through the tunnel from the left side to the right side. The lead was extracted through the sheath and using a stylette the lead was repositioned in the right ventricle. Several positions were used, near the right ventricular apex capture was poor even at full output, position in the right ventricular outflow tract (near but not identical to the prior location of the recent lead) the numbers were acceptable although less than ideal. Multiple positions were not used due to the experience of perforation several days prior and the suspicion that there was no place in the ventricle where good thresholds would be obtained. Once in position the lead was attached to the anterior pectoral fascia using 2 sutures of 2-0 silk around the lead collar. The lead was placed back through the tunneling sheath which remained in position, it was connected to the pacemaker at the left site (of note the atrial lead was not removed from the header). The old ventricular lead was once again capped. Pacing and sensing characteristics were evaluated in both the atrial and ventricular leads as noted on the implant data sheet. Of note the atrial pacing capture was very poor, atrial sensing was adequate but her heart rate at this time was quite low therefore tracking was not appropriate due to the low heart rate. No attempt was made to revise the atrial lead. The vancomycin soaked sponge was removed from the pocket, the pacemaker was placed in the pocket with the leads coiled beneath it. The incision was closed with a running double subcutaneous closure of 3-0 Vicryl absorbable suture followed by a running subcuticular skin closure of 4-0 Vicryl absorbable suture. Bacitracin ointment was placed on the incision and a dressing applied. The right-sided lead insertion site was closed in the same manner. At the conclusion of the procedure there was no evidence of recurrent pericardial effusion (based on hemodynamics and drainage through the pericardial catheter which remains in place). A postoperative echocardiogram will be taken to confirm. [facility] Electrophysiology codes Indication for Procedure (1) Malfunction of electrode lead of cardiac pacemaker: Pacing Procedure 1: Pacin Reposition Pacer/ICD electrode
--- NOTE | 2023-11-03 10:18 | Post Anesthesia Assessment ---
Date of Service November 03, 2023 Post Sedation Assessment Vital Signs Temp Pulse Pulse Resp BP BP BP 11/03/23 07:00 36.9 C 111 H 25 H 11/03/23 07:00 36.9 C 100 H 22 109/75 129/66 11/03/23 06:49 112 H 11/03/23 06:00 106/61 11/03/23 06:00 36.9 C 111 H 21 11/03/23 06:00 36.9 C 112 H 23 115/63 11/03/23 05:00 36.8 C 111 H 19 100/68 11/03/23 04:00 36.8 C 111 H 19 11/03/23 03:00 36.9 C 111 H 18 11/03/23 02:00 36.9 C 111 H 18 11/03/23 01:00 37.0 C 111 H 18 97/63 L 11/03/23 00:00 37.0 C 112 H 19 99/70 L 11/02/23 23:00 37.1 C 76 21 106/59 L 11/02/23 22:53 74 11/02/23 22:00 11/02/23 22:00 37.3 C 75 20 97/55 L 11/02/23 21:00 37.4 C 78 21 111/61 11/02/23 20:31 37.4 C 76 20 11/02/23 20:00 37.4 C 74 20 110/66 11/02/23 19:00 37.4 C 75 23 11/02/23 18:51 75 11/02/23 17:50 37.4 C 76 28 H 11/02/23 17:44 104/58 L 11/02/23 17:44 37.4 C 76 25 H 11/02/23 17:40 37.4 C 76 26 H 11/02/23 17:30 37.4 C 75 27 H 11/02/23 17:20 37.5 C 0 L 32 H 11/02/23 17:10 37.5 C 0 L 28 H 11/02/23 17:00 37.5 C 120 H 23 11/02/23 16:50 37.4 C 112 H 20 11/02/23 16:40 37.4 C 113 H 22 11/02/23 16:30 37.4 C 112 H 22 11/02/23 16:20 37.4 C 112 H 17 11/02/23 16:10 37.4 C 112 H 20 11/02/23 16:00 37.4 C 112 H 24 11/02/23 15:00 37.4 C 112 H 21 11/02/23 14:00 37.3 C 111 H 21 11/02/23 13:59 112 H 11/02/23 13:09 37.2 C 111 H 21 11/02/23 13:09 94/60 L 11/02/23 13:03 11/02/23 13:00 37.2 C 110 H 20 11/02/23 12:50 37.2 C 109 H 19 11/02/23 12:40 37.2 C 109 H 20 11/02/23 12:30 37.2 C 107 H 21 11/02/23 12:20 37.2 C 108 H 18 11/02/23 12:10 37.2 C 108 H 18 11/02/23 12:00 37.2 C 109 H 19 11/02/23 12:00 108 H 11/02/23 11:50 37.2 C 109 H 21 11/02/23 11:42 92/58 L 11/02/23 11:42 37.2 C 110 H 22 11/02/23 11:40 37.2 C 110 H 23 11/02/23 11:30 37.2 C 109 H 16 11/02/23 11:20 37.2 C 109 H 19 11/02/23 11:10 37.2 C 109 H 19 11/02/23 11:00 37.2 C 110 H 21 11/02/23 10:50 37.2 C 109 H 22 11/02/23 10:40 37.1 C 101 H 22 11/02/23 10:30 37.1 C 108 H 22 11/02/23 10:20 37.2 C 101 H 22 Pulse Ox O2 Del Method O2 Del Method O2 Flow Rate 11/03/23 07:00 91 11/03/23 07:00 94 Room Air 11/03/23 06:49 11/03/23 06:00 11/03/23 06:00 92 11/03/23 06:00 93 Room Air 11/03/23 05:00 92 Room Air 11/03/23 04:00 92 Room Air 11/03/23 03:00 94 Room Air 11/03/23 02:00 91 Room Air 11/03/23 01:00 93 Room Air 11/03/23 00:00 93 Room Air 11/02/23 23:00 94 Room Air 11/02/23 22:53 11/02/23 22:00 Room Air 11/02/23 22:00 94 Room Air 11/02/23 21:00 93 Room Air 11/02/23 20:31 94 Room Air 11/02/23 20:00 94 Room Air 11/02/23 19:00 95 Room Air 11/02/23 18:51 11/02/23 17:50 92 11/02/23 17:44 11/02/23 17:44 92 11/02/23 17:40 93 11/02/23 17:30 92 11/02/23 17:20 83 L 11/02/23 17:10 91 11/02/23 17:00 98 11/02/23 16:50 94 11/02/23 16:40 97 11/02/23 16:30 98 11/02/23 16:20 94 11/02/23 16:10 100 11/02/23 16:00 98 11/02/23 15:00 100 Room Air 11/02/23 14:00 100 11/02/23 13:59 11/02/23 13:09 99 11/02/23 13:09 11/02/23 13:03 Room Air 98 11/02/23 13:00 99 11/02/23 12:50 100 11/02/23 12:40 99 11/02/23 12:30 96 11/02/23 12:20 95 11/02/23 12:10 96 11/02/23 12:00 96 11/02/23 12:00 11/02/23 11:50 96 11/02/23 11:42 11/02/23 11:42 95 11/02/23 11:40 95 11/02/23 11:30 95 11/02/23 11:20 93 11/02/23 11:10 90 11/02/23 11:00 96 11/02/23 10:50 96 11/02/23 10:40 94 11/02/23 10:30 96 11/02/23 10:20 96 Discharge Sedation Level of Care: Higher Level of Care Post Sedation Plan On clinical assessment, the patient appears to have tolerated the sedation without complications. Patient is recovering as anticipated. Patient will continue to be monitored by nursing and may be discharged when sedation discharge criteria are met per below protocol. Upon Completions of procedure up to 15 minutes continue every 5 minute vital signs and the P.A.R. score; then discharge to a Phase I or Fast Track to Phase II per the following guidelines: * Discharge Patient to appropriate Phase II area if PAR is 8 or greater or return to pre- procedure baseline. The post - procedure orders will be as directed. * If PAR score is less than 8 or not return to pre-procedure baseline then patient will follow Phase I monitoring till PAR is reached for Phase II. The Phase I may be done in procedure room or may call to secure a Phase I area. * If naloxone or flumazenil are used for reversal, hold in Phase I for continued monitoring from when last reversal dose was given for a minimum of 60 minutes or longer pending the nurse and/or physician discretion of patient condition before discharge to Phase II. Please call the Sedation Physician to re-evaluate and complete post-note for discharge to Phase II area. Do NOT discharge from procedure sedation or Phase 1 until post- sedation evaluation note is complete by procedure /sedation MD Sedation Discharge Instructions to be given to the patient at discharge to home.
--- NOTE | 2023-11-03 14:08 | XRay Report ---
XR chest 1V portable HISTORY: Post pacemaker revision COMPARISON: Chest 11/01/2023. FINDINGS: There is a left-sided pacemaker again noted. No pneumothorax. The heart remains enlarged. T here is mild central pulmonary vascular congestion without overt edema. This has slightly improved. S mall left and trace right pleural effusions again noted. Left basilar densities persist. Calcificatio ns within the aortic knob. No acute fractures. There are old, healed right-sided rib fractures again noted. Chronic elevation of the left hemidiaphragm again noted. There is a small catheter within the left upper quadrant. IMPRESSION: 1. Interval improvement in the mild pulmonary vascular congestion. 2. A small left pleural effusion and left basilar densities persist. ACT 112: Negative or not required by law. Electronically signed by: Jaron Neff M.D. 11/03/2023 2:06 PM
--- NOTE | 2023-11-03 14:51 | XCELERA ---
[id number]
--- NOTE | 2023-11-03 16:07 | Critical Care Progress Note ---
Date of Service November 03, 2023 Assessment & Plan (1) Pericardial effusion with cardiac tamponade: Plan: Reason Critically Ill: 87-year-old female with pericardial tamponade status post pericardial effusion status post pacemaker lead revision status post pacemaker malfunction PLAN: CV: History of CHF History of atrial fibrillation on amiodarone Complete heart block status post pacemaker placement Pericardial tamponade status post drain placement -Drain management per cardiology, anticipate DC this evening or tomorrow Acute arterial hypotension secondary to acute blood loss anemia on chronic anemia: Resolved -Off all vasoactive Fluids/Renal: Acute kidney injury on chronic kidney disease stage III: -Has had persistently low urine output, I believe the patient is third spacing fluid, currently she appears to be intravascularly euvolemic I am discontinuing additional fluid. ID: Anti-infectives per electrophysiology given operative procedure GI/Nutrition: Advance diet as tolerated Heme: Acute blood loss anemia on chronic anemia - given 1 unit of pRBCs, no indication for additional blood product at this time -cold antibody present on repeat screening DVT prophylaxis: SCDs as chemical prophylaxis is contraindicated Endocrine: ICU hyperglycemia protocol Vascular access: Can discontinue central line Code Status: DNR in the event of cardiac arrest Disposition: ICU for ongoing hemodynamic monitoring (2) Malfunction of electrode lead of cardiac pacemaker: (3) Chronic kidney disease with active medical management without dialysis, stage 2 (mild): (4) Acute kidney injury superimposed on CKD: (5) Misadventure during medical care: Admission and Anticipated Discharge Date Admission Date: October 25, 2023 Supervising Physician Co-Signing Physician Notes I have personally spent 35 minutes of critical care time in the direct management of this patient. This is a life/limb threatening event. This includes time spent evaluating patient, direct bedside care, chart review, placing orders, interpretation of diagnostic studies, discussion with con sultants, patient, and/or family members regarding treatment decisions, as well as other required patient management activities. This time is exclusive of all separately billable procedures, and teaching time and separate from and in addition to any other critical care service time. Subjective Patient reports she feels better than yesterday albeit a little drowsy since the procedure otherwise no complaints. Physical Exam Physical Exam: General: Alert and oriented Skin: Warm dry Head: Atraumatic Ears, nose, mouth and throat: airway patent Cardiovascular: Paced rhythm on bedside monitor Chest: Pericardial drain present and sutured in place secured with Tegaderms Respiratory: no respiratory distress Gastrointestinal: Non distended Musculoskeletal: No deformity Results & Data Results & Data Vital Signs (Past 12 Hours) Vital Signs Temp Pulse Pulse Resp BP BP BP 11/03/23 15:30 114/67 11/03/23 15:30 36.9 C 80 21 11/03/23 15:00 36.9 C 80 17 11/03/23 14:30 36.9 C 80 19 11/03/23 14:30 116/68 11/03/23 14:00 36.9 C 80 21 11/03/23 13:49 36.9 C 74 19 11/03/23 13:49 108/72 11/03/23 13:30 36.9 C 80 19 11/03/23 13:30 112/63 11/03/23 13:16 36.9 C 80 18 11/03/23 13:16 120/70 11/03/23 13:00 36.9 C 79 26 H 11/03/23 13:00 104/81 11/03/23 13:00 11/03/23 12:45 36.9 C 80 17 11/03/23 12:45 123/71 11/03/23 12:30 111/73 11/03/23 12:30 37.0 C 81 16 11/03/23 12:15 37.0 C 80 16 11/03/23 12:15 128/71 11/03/23 12:00 37.0 C 80 18 11/03/23 12:00 78 109/67 11/03/23 11:45 109/67 11/03/23 11:45 37.0 C 78 15 11/03/23 11:30 107/65 11/03/23 11:30 37.0 C 80 15 11/03/23 11:15 36.9 C 80 14 11/03/23 11:15 116/62 11/03/23 11:00 36.9 C 80 14 11/03/23 10:45 110/66 11/03/23 10:45 36.9 C 80 17 11/03/23 10:30 36.9 C 80 15 11/03/23 10:25 11/03/23 10:15 93/70 L 11/03/23 10:15 73 19 11/03/23 10:10 79 17 11/03/23 10:10 102/56 L 11/03/23 10:07 81 16 11/03/23 07:00 36.9 C 111 H 25 H 11/03/23 07:00 36.9 C 100 H 22 109/75 129/66 11/03/23 06:49 112 H 11/03/23 06:00 106/61 11/03/23 06:00 36.9 C 111 H 21 11/03/23 06:00 36.9 C 112 H 23 115/63 11/03/23 05:00 36.8 C 111 H 19 100/68 Pulse Ox Pulse Ox O2 Del Method O2 Del Method O2 Flow Rate O2 Flow Rate 11/03/23 15:30 11/03/23 15:30 96 11/03/23 15:00 95 11/03/23 14:30 96 11/03/23 14:30 11/03/23 14:00 97 11/03/23 13:49 97 11/03/23 13:49 11/03/23 13:30 98 11/03/23 13:30 11/03/23 13:16 95 11/03/23 13:16 11/03/23 13:00 92 11/03/23 13:00 11/03/23 13:00 96 Oxymask 2 11/03/23 12:45 95 11/03/23 12:45 11/03/23 12:30 11/03/23 12:30 94 11/03/23 12:15 93 11/03/23 12:15 11/03/23 12:00 92 11/03/23 12:00 11/03/23 11:45 11/03/23 11:45 94 11/03/23 11:30 11/03/23 11:30 95 11/03/23 11:15 97 11/03/23 11:15 11/03/23 11:00 96 11/03/23 10:45 11/03/23 10:45 94 11/03/23 10:30 93 11/03/23 10:25 Oxymask 2 11/03/23 10:15 11/03/23 10:15 11/03/23 10:10 77 L 11/03/23 10:10 11/03/23 10:07 11/03/23 07:00 91 11/03/23 07:00 94 Room Air 11/03/23 06:49 11/03/23 06:00 11/03/23 06:00 92 11/03/23 06:00 93 Room Air 11/03/23 05:00 92 Room Air Critical Care Results & Data Vital Signs (Past 12 Hours) Vital Signs Temp Pulse Pulse Resp BP BP BP 11/03/23 15:30 114/67 11/03/23 15:30 36.9 C 80 21 11/03/23 15:00 36.9 C 80 17 11/03/23 14:30 36.9 C 80 19 11/03/23 14:30 116/68 11/03/23 14:00 36.9 C 80 21 11/03/23 13:49 36.9 C 74 19 11/03/23 13:49 108/72 11/03/23 13:30 36.9 C 80 19 11/03/23 13:30 112/63 11/03/23 13:16 36.9 C 80 18 11/03/23 13:16 120/70 11/03/23 13:00 36.9 C 79 26 H 11/03/23 13:00 104/81 11/03/23 13:00 11/03/23 12:45 36.9 C 80 17 11/03/23 12:45 123/71 11/03/23 12:30 111/73 11/03/23 12:30 37.0 C 81 16 11/03/23 12:15 37.0 C 80 16 11/03/23 12:15 128/71 11/03/23 12:00 37.0 C 80 18 11/03/23 12:00 78 109/67 11/03/23 11:45 109/67 11/03/23 11:45 37.0 C 78 15 11/03/23 11:30 107/65 11/03/23 11:30 37.0 C 80 15 11/03/23 11:15 36.9 C 80 14 11/03/23 11:15 116/62 11/03/23 11:00 36.9 C 80 14 11/03/23 10:45 110/66 11/03/23 10:45 36.9 C 80 17 11/03/23 10:30 36.9 C 80 15 11/03/23 10:25 11/03/23 10:15 93/70 L 11/03/23 10:15 73 19 11/03/23 10:10 79 17 11/03/23 10:10 102/56 L 11/03/23 10:07 81 16 11/03/23 07:00 36.9 C 111 H 25 H 11/03/23 07:00 36.9 C 100 H 22 109/75 129/66 11/03/23 06:49 112 H 11/03/23 06:00 106/61 11/03/23 06:00 36.9 C 111 H 21 11/03/23 06:00 36.9 C 112 H 23 115/63 11/03/23 05:00 36.8 C 111 H 19 100/68 Pulse Ox Pulse Ox O2 Del Method O2 Del Method O2 Flow Rate O2 Flow Rate 11/03/23 15:30 11/03/23 15:30 96 11/03/23 15:00 95 11/03/23 14:30 96 11/03/23 14:30 11/03/23 14:00 97 11/03/23 13:49 97 11/03/23 13:49 11/03/23 13:30 98 11/03/23 13:30 11/03/23 13:16 95 11/03/23 13:16 11/03/23 13:00 92 11/03/23 13:00 11/03/23 13:00 96 Oxymask 2 11/03/23 12:45 95 11/03/23 12:45 11/03/23 12:30 11/03/23 12:30 94 11/03/23 12:15 93 11/03/23 12:15 11/03/23 12:00 92 11/03/23 12:00 11/03/23 11:45 11/03/23 11:45 94 11/03/23 11:30 11/03/23 11:30 95 11/03/23 11:15 97 11/03/23 11:15 11/03/23 11:00 96 11/03/23 10:45 11/03/23 10:45 94 11/03/23 10:30 93 11/03/23 10:25 Oxymask 2 11/03/23 10:15 11/03/23 10:15 11/03/23 10:10 77 L 11/03/23 10:10 11/03/23 10:07 11/03/23 07:00 91 11/03/23 07:00 94 Room Air 11/03/23 06:49 11/03/23 06:00 11/03/23 06:00 92 11/03/23 06:00 93 Room Air 11/03/23 05:00 92 Room Air Lab & Micro Results (Past 24 Hours) RBC 2.96 M/uL (4.20-5.40) L 11/03/23 WBC 8.30 K/ul (4.8-10.8) 11/03/23 Hgb 8.6 g/dl (12.0-16.0) L 11/03/23 Hct 25.5 % (37.0-47.0) L 11/03/23 MCV 86.1 fL (80.0-100.0) 11/03/23 MCH 29.1 pg (25.0-34.0) 11/03/23 MCHC 33.7 g/dL (32.0-36.0) 11/03/23 RDW Standard Deviation 45.9 fL (36.4-46.3) 11/03/23 RDW Coefficient of Variation 19.1 % (11.5-14.5) H 11/03/23 Plt Count 150 K/uL (130-400) 11/03/23 MPV 10.3 fL (9.4-12.4) 11/03/23 Nucleated Red Blood Cells % (auto) 0.7 % 11/02 Nucleated RBC Absolute Count (auto) 0.06 K/uL (0.00-0.12) 0 11/03/23 Neutrophils (%) (Auto) 83.7 % 11/03/23 Lymphocytes (%) (Auto) 6.5 % 11/03/23 Monocytes # (Auto) 0.71 K/uL (0.11-0.59) H 11/03/23 Eosinophils # (Auto) 0.00 K/uL (0.00-0.50) 11/03/23 Immature Granulocyte % (Auto) 1.1 % 11/03/23 Neutrophils # (Auto) 6.95 K/uL (1.40-6.50) H 11/03/23 Lymphocytes # (Auto) 0.54 K/uL (1.20-3.40) L 11/03/23 Monocytes # (Auto) 0.71 K/uL (0.11-0.59) H 11/03/23 Eosinophils # (Auto) 0.00 K/uL (0.00-0.50) 11/03/23 Basophils # (Auto) 0.01 K/uL (0.00-0.20) 11/03/23 Immature Granulocyte # (Auto) 0.09 K/uL (0.01-0.20) 4 Na 131 mmol/L (136-145) L 11/03/23 K 4.8 mmol/L (3.5-5.1) 11/03/23 Cl 106 mmol/L (98-107) 11/03/23 CO2 21 mmol/L (21-32) 11/03/23 Anion Gap 4 (3-11) 11/03/23 BUN 17 mg/dl (6-23) 11/03/23 Creatinine 1.07 mg/dl (0.6-1.2) 11/03/23 Estimated GFR ( Amer) 54.4 ml/min 11/03/23 Estimated GFR (Non-Af Amer) 47.0 ml/min 11/03/23 BUN/Creatinine Ratio 15.9 (10-20) 11/03/23 Glu 97 mg/dl (70-99(Fasting)) 11/03/23 Ca 7.4 mg/dl (8.6-10.3) L 11/03/23 Phosphorus Level 2.6 mg/dl (2.5-4.9) 11/03/23 Mg 2.8 mg/dl (1.7-2.4) H 11/03/23 03:47 Calcium Level 7.4 mg/dl (8.6-10.3) L 11/03/23 03:47 Diagnostic Findings (Past 24 Hours) Chest X-Ray 11/03/23 12:44 XR chest 1V portable HISTORY: Post pacemaker revision COMPARISON: Chest 11/01/2023. FINDINGS: There is a left-sided pacemaker again noted. No pneumothorax. The heart remains enlarged. There is mild central pulmonary vascular congestion without overt edema. This has slightly improved. Small left and trace right pleural effusions again noted. Left basilar densities persist. Calcifications within the aortic knob. No acute fractures. There are old, healed right-sided rib fractures again noted. Chronic elevation of the left hemidiaphragm again noted. There is a small catheter within the left upper quadrant. IMPRESSION: 1. Interval improvement in the mild pulmonary vascular congestion. 2. A small left pleural effusion and left basilar densities persist. ACT 112: Negative or not required by law. Electronically signed by: Jaron Neff M.D. 11/03/2023 2:06 PM I & O Totals 24 Hours 11/02/23 11/03/23 11/04/23 06:59 06:59 06:59 Intake Total 1173.948 / 7622.806 5629.6937 / 2497.6937 1000 / 1000 Output Total 1335 / 1335 326 / 326 70 / 70 Balance -161.052 / -241.799 9845.6937 / 2171.6937 930 / 930 Cumulative 10/25/23 08:57 thru 11/03/23 14:00 Intake Total 40785.5417 Output Total 5392 Balance 8614.5417 RT Ventilator Mngmt (Last Documented) Ventilator Ordered Settings Respiratory Rate 21 11/03/23 15:30 Ventilator - PT Measurements Respiratory Rate 21 Coding Level of Care Code 19394 CRITICAL CARE 1ST 30-74M Diagnoses Pericardial effusion with cardiac tamponade I31.39; I31.4 Malfunction of electrode lead of cardiac pacemaker T82.198A Chronic kidney disease with active medical management without dialysis, stage 2 (mild) N18.2 Acute kidney injury superimposed on CKD N17.9; N18.9 Misadventure during medical care Y69
--- NOTE | 2023-11-03 16:09 | Hospitalist Progress Note ---
Date of Service November 03, 2023 Assessment & Plan (1) Acute kidney injury: (2) Chronic kidney disease with active medical management without dialysis, stage 2 (mild): (3) Hyperkalemia: (4) Pacemaker malfunction: (5) CAD (coronary artery disease): (6) Paroxysmal atrial fibrillation: Plan Pt is a 87 yo female with a past medical history of pacemaker for Mobitz type 2 block, previous syncope with ventricular tachycardia, CKD stage 2, CHF, paroxysmal afib, and HTN who presents to the hospital on 10/24 for mechanical fall and admitted for PT/OT recs and for pacemaker malfunction. #Mechanical fall with walker - CT head negative - CTAP significant for S3 fracture - Fall precautions - PT/OT; recommend rehab #Pacemaker Malfunction - presented with pacemaker loss of capture, pacing output maximized with subsequent capture, paced in the 60s overnight - Pacemaker revision performed on 11/01/23. Pt w/pericardial effusion requiring pericardicentesis and drain placement occurred; pt in ICU with build technician consult - Pacemaker revision 11/03/23 with successful lead placement and capture. - Continue management per build technician, medical logistics specialist - plan for repeat procedure tomorrow #IGNACIO in patient with CKD, resolved - Likely secondary to volume contraction, potentially also exacerbated by reduced cardiac output in the setting of pacemaker malfunction. - Nephrology consulted, appreciate recs: - Encourage PO fluids - Jardiance, spironolactone held in the setting of IGNACIO okay restart at discharge #Hyperkalemia - Improved, today was 5.2 - Lokelma discontinued - Low K diet - Consider lowering dose of spironolactone at discharge #Anemia, chronic: - Hgb 9.0 on admission, then 7.1 (10/26), 7.6 - IV Venofer x4 days, day 4 of 4 today - H&H checks, transfuse for Hgb <7 or if symptomatic - stool occult positive, recommend outpatient workup/colonoscopy since hgb stable here VTE ppx: Eliquis Admission and Anticipated Discharge Date Admission Date: October 25, 2023 Supervising Physician Co-Signing Physician Notes ATTESTATION I also saw the patient and confirmed clark portions of the history and exam. I agree with the impression and plan in the resident documentation, and as summarized below. I also discussed the case with the critical care team. Patient seen this morning is still partially sedated post procedure. The pericardial drain remains in but is clamped. Urine output still low. EXAM 119/67, 68, 16, 95% on oxy mask at 2 L/min. Heart regular rate and rhythm Respirations non labored DATA Labs WBC 8.30, HgB 8.6, plt 150 Sodium 131, potassium 4.8, BUN 17, creatinine 1.07 IMPRESSION & PLAN Acute pericardial effusion with cardiac tamponade, with subsequent emergent pericardiocentesis with placement of pericardial drain S/P placement of right-sided ventricular lead IGNACIO with history of CKD, stage G2/A3 Anemia, iron deficiency Anemia, post procedural Paroxysmal atrial fibrillation, on systemic anticoagulation (currently held) Patient remains in the ICU for ongoing hemodynamic monitoring and support Hopefully pericardial drain will be discontinued later today or tomorrow Urine output remains low; clinically appears euvolemic Follow hemodynamics and urine output Continue to hold Aldactone in setting of mild hyperkalemia No evidence of ongoing bleeding at present; systemic anticoagulation on hold, SCDs for DVT prophylaxis Additional per resident documentation Subjective Patient seen and evaluated at bedside. Remains drowsy after procedure today, otherwise no complaints. Review of Systems Review of Systems: reviewed, per HPI Physical Exam Physical Exam: Constitutional: Alert, interactive, NAD, pepe in place draining minimal urine, pericardial cath in place with very minimal output. HEENT: NCAT, no conjunctival injection CV: paced rate/rhythm, extremities well-perfused, no LE edema Resp: no increased work of breathing MSK: no gross deformities appreciated Skin: femoral central and a-line in place, pepe in place, pericardial drain in place. widespread ecchymosis in areas of line placement Neuro: alert, no focal neurologic deficit appreciated Results & Data Results & Data Vital Signs (Past 12 Hours) Vital Signs Temp Pulse Pulse Resp BP BP BP 11/03/23 15:30 114/67 11/03/23 15:30 36.9 C 80 21 11/03/23 15:00 36.9 C 80 17 11/03/23 14:30 36.9 C 80 19 11/03/23 14:30 116/68 11/03/23 14:00 36.9 C 80 21 11/03/23 13:49 36.9 C 74 19 11/03/23 13:49 108/72 11/03/23 13:30 36.9 C 80 19 11/03/23 13:30 112/63 03/21/24 13:16 36.9 C 80 18 11/03/23 13:16 120/70 11/03/23 13:00 36.9 C 79 26 H 11/03/23 13:00 104/81 11/03/23 13:00 11/03/23 12:45 36.9 C 80 17 11/03/23 12:45 123/71 11/03/23 12:30 111/73 11/03/23 12:30 37.0 C 81 16 11/03/23 12:15 37.0 C 80 16 11/03/23 12:15 128/71 11/03/23 12:00 37.0 C 80 18 11/03/23 12:00 78 109/67 11/03/23 11:45 109/67 11/03/23 11:45 37.0 C 78 15 11/03/23 11:30 107/65 11/03/23 11:30 37.0 C 80 15 11/03/23 11:15 36.9 C 80 14 11/03/23 11:15 116/62 11/03/23 11:00 36.9 C 80 14 11/03/23 10:45 110/66 11/03/23 10:45 36.9 C 80 17 11/03/23 10:30 36.9 C 80 15 11/03/23 10:25 11/03/23 10:15 93/70 L 11/03/23 10:15 73 19 11/03/23 10:10 79 17 11/03/23 10:10 102/56 L 11/03/23 10:07 81 16 11/03/23 07:00 36.9 C 111 H 25 H 11/03/23 07:00 36.9 C 100 H 22 109/75 129/66 11/03/23 06:49 112 H 11/03/23 06:00 106/61 11/03/23 06:00 36.9 C 111 H 21 11/03/23 06:00 36.9 C 112 H 23 115/63 11/03/23 05:00 36.8 C 111 H 19 100/68 Pulse Ox Pulse Ox O2 Del Method O2 Del Method O2 Flow Rate O2 Flow Rate 11/03/23 15:30 11/03/23 15:30 96 11/03/23 15:00 95 11/03/23 14:30 96 11/03/23 14:30 11/03/23 14:00 97 11/03/23 13:49 97 11/03/23 13:49 11/03/23 13:30 98 11/03/23 13:30 11/03/23 13:16 95 11/03/23 13:16 11/03/23 13:00 92 11/03/23 13:00 11/03/23 13:00 96 Oxymask 2 11/03/23 12:45 95 11/03/23 12:45 11/03/23 12:30 11/03/23 12:30 94 11/03/23 12:15 93 11/03/23 12:15 11/03/23 12:00 92 11/03/23 12:00 11/03/23 11:45 11/03/23 11:45 94 11/03/23 11:30 11/03/23 11:30 95 11/03/23 11:15 97 11/03/23 11:15 11/03/23 11:00 96 11/03/23 10:45 11/03/23 10:45 94 11/03/23 10:30 93 11/03/23 10:25 Oxymask 2 11/03/23 10:15 11/03/23 10:15 11/03/23 10:10 77 L 11/03/23 10:10 11/03/23 10:07 11/03/23 07:00 91 11/03/23 07:00 94 Room Air 11/03/23 06:49 11/03/23 06:00 11/03/23 06:00 92 11/03/23 06:00 93 Room Air 11/03/23 05:00 92 Room Air Resident Activity Tracking Resident Involvement: Resident Care Provided Care Provided: Adult Hospital Medicine
[2023-11-04] MEDS ORDERED: GLUCAGON FOR INJ 1 MG VIAL SQ PRN (02:19)
[2023-11-04] MEDS ORDERED: GLUCOSE 10 TAB/TUBE PO PRN (02:19)
[2023-11-04] MEDS ORDERED: GLUCOSE 40% GEL 15 GM TUBE PO PRN (02:19)
[2023-11-04] MEDS ORDERED: CARBOHYDRATES FOR HYPOGLYCEMIA PO PRN (02:19)
[2023-11-04] MEDS: DEXTROSE 50% 50 ML SYRINGE IV ONE (02:23)
[2023-11-04] MEDS: DEXTROSE 50% 50 ML SYRINGE IV PRN (02:23)
[2023-11-04 04:46] LABS: Basophils # (auto) 0.01 K/uL (0.00-0.20); Basophils % (auto) 0.1 %; Hematocrit (blood only) 26.8 % (37.0-47.0); Hemoglobin 8.3 g/dl (12.0-16.0); Immature Granulocytes # (auto) 0.07 K/uL (0.01-0.20); Lymphocytes # (auto) 0.42 K/uL (1.20-3.40); Mean Corpuscular Hemoglobin 26.4 pg (25.0-34.0); Mean Corpuscular Volume 85.4 fL (80.0-100.0); Mean Platelet Volume 9.9 fL (9.4-12.4); Monocytes # (auto) 0.44 K/uL (0.11-0.59); Monocytes % (auto) 6.2 %; Neutrophils # (auto) 6.11 K/uL (1.40-6.50); Neutrophils % (auto) 86.7 %; Nucleated RBC # (auto) 0.02 K/uL (0.00-0.12); Nucleated RBC % (auto) 0.3 %; Platelet Count 147 K/uL (130-400); RDW Coefficient of Variation 18.2 % (11.5-14.5); RDW Standard Deviation 48.8 fL (36.4-46.3); Red Blood Count 3.14 M/uL (4.20-5.40); White Blood Count 7.05 K/ul (4.8-10.8)
[2023-11-04 05:00] LABS: BUN Creatinine Ratio 20.2 (10-20); Calcium 7.2 mg/dl (8.6-10.3); Est GFR (African American) 50.4 ml/min; Est GFR (Non-African American) 43.5 ml/min; Magnesium 2.4 mg/dl (1.7-2.4); Phosphorus 3.4 mg/dl (2.5-4.9); Potassium 4.7 mmol/L (3.5-5.1)
[2023-11-04] MEDS: D5W AND NSS 1,000 ML IV SCH (06:49)
--- NOTE | 2023-11-04 07:18 | Critical Care Progress Note ---
Date of Service November 04, 2023 Assessment & Plan (1) Pericardial effusion with cardiac tamponade: Plan: Reason Critically Ill: 87-year-old female with pericardial tamponade status post pericardial effusion status post pacemaker lead revision status post pacemaker malfunction PLAN: CV: History of CHF History of atrial fibrillation on amiodarone Complete heart block status post pacemaker placement: Improved Pericardial tamponade status post drain placement: Improved -Drain management per cardiology: Removing this morning deferring to them to do any follow-up imaging Acute arterial hypotension secondary to acute blood loss anemia on chronic anem ia: Resolved -Off all vasoactive Fluids/Renal: Acute kidney injury on chronic kidney disease stage III: -Still low urine output however we will reinstitute patient's diuretics, I feel she is euvolemic and creatinine is stable ID: Anti-infectives per electrophysiology given operative procedure GI/Nutrition: Advance diet as tolerated -Speech therapy consult for reported concerns over coughing with fluids Heme: Acute blood loss anemia on chronic anemia - s/p 1 unit of pRBCs, no indication for additional blood product at this time -cold antibody present on repeat screening DVT prophylaxis: SCDs as chemical prophylaxis is contraindicated -Referral to cardiology with regards to restarting chemoprophylaxis Endocrine: ICU hyperglycemia protocol Vascular access: Can discontinue aterial line Code Status: DNR in the event of cardiac arrest Disposition: ICU for ongoing hemodynamic monitoring following drain removal -PT and OT consults and normalization/optimize patient today. (2) Malfunction of electrode lead of cardiac pacemaker: (3) Chronic kidney disease with active medical management without dialysis, stage 2 (mild): (4) Acute kidney injury superimposed on CKD: (5) Misadventure during medical care: Admission and Anticipated Discharge Date Admission Date: October 25, 2023 Supervising Physician Co-Signing Physician Notes I have personally spent 35 minutes of critical care time in the direct management of this patient. This is a life/limb threatening event. This includes time spent evaluating patient, direct bedside care, chart review, placing orders, interpretation of diagnostic studies, discussion with consultants, patient, and/or family members regarding treatment decisions, as well as other required patient management activities. This time is exclusive of all separately billable procedures, and teaching time and separate from and in addition to any other critical care service time. Subjective Continues to feel as though she is improving Physical Exam Physical Exam: General: Alert and oriented Skin: Warm dry Head: Atraumatic Ears, nose, mouth and throat: airway patent Cardiovascular: Paced rhythm on bedside monitor Chest: Pericardial drain present and sutured in place secured with Tegaderms Respiratory: no respiratory distress Gastrointestinal: Non distended Musculoskeletal: No deformity Results & Data Results & Data Vital Signs (Past 12 Hours) Vital Signs Temp Pulse Resp BP Pulse Ox O2 Del Method O2 Flow Rate 11/04/23 04:00 101/60 11/04/23 04:00 36.6 C 80 19 99 11/04/23 04:00 80 121/57 L 11/04/23 03:30 101/58 L 11/04/23 03:30 36.6 C 80 18 98 11/04/23 03:00 98/57 L 11/04/23 03:00 36.6 C 80 13 96 11/04/23 02:30 36.6 C 80 19 95 11/04/23 02:30 104/56 L 11/04/23 02:00 119/58 L 11/04/23 02:00 36.6 C 80 12 95 11/04/23 01:30 108/60 11/04/23 01:30 36.6 C 80 17 93 11/04/23 01:00 109/60 11/04/23 01:00 36.6 C 80 19 94 11/04/23 00:30 111/65 11/04/23 00:30 36.6 C 80 16 94 11/04/23 00:15 80 11/04/23 00:00 36.6 C 80 16 95 11/04/23 00:00 108/78 11/04/23 00:00 80 125/57 L 11/03/23 23:30 36.6 C 80 21 95 11/03/23 23:30 107/61 11/03/23 23:00 36.6 C 80 19 96 11/03/23 23:00 105/56 L 11/03/23 22:30 36.6 C 80 15 96 11/03/23 22:30 99/58 L 11/03/23 22:00 36.7 C 68 23 92 11/03/23 22:00 103/58 L 11/03/23 21:30 36.7 C 80 20 96 11/03/23 21:30 98/57 L 11/03/23 21:01 36.7 C 80 18 92 11/03/23 21:01 104/53 L 11/03/23 21:00 36.7 C 80 20 91 11/03/23 20:30 36.7 C 80 19 97 11/03/23 20:30 97/55 L 11/03/23 20:20 Oxymask 2 11/03/23 20:00 36.8 C 80 7 L 97 11/03/23 20:00 100/56 L 11/03/23 20:00 80 117/53 L 11/03/23 19:30 36.8 C 80 16 97 11/03/23 19:30 104/56 L Critical Care Results & Data Vital Signs (Past 12 Hours) Vital Signs Temp Pulse Resp BP Pulse Ox O2 Del Method O2 Flow Rate 11/04/23 04:00 101/60 11/04/23 04:00 36.6 C 80 19 99 11/04/23 04:00 80 121/57 L 11/04/23 03:30 101/58 L 11/04/23 03:30 36.6 C 80 18 98 11/04/23 03:00 98/57 L 11/04/23 03:00 36.6 C 80 13 96 11/04/23 02:30 36.6 C 80 19 95 11/04/23 02:30 104/56 L 11/04/23 02:00 119/58 L 11/04/23 02:00 36.6 C 80 12 95 11/04/23 01:30 108/60 11/04/23 01:30 36.6 C 80 17 93 11/04/23 01:00 109/60 11/04/23 01:00 36.6 C 80 19 94 11/04/23 00:30 111/65 11/04/23 00:30 36.6 C 80 16 94 11/04/23 00:15 80 11/04/23 00:00 36.6 C 80 16 95 11/04/23 00:00 108/78 11/04/23 00:00 80 125/57 L 11/03/23 23:30 36.6 C 80 21 95 11/03/23 23:30 107/61 11/03/23 23:00 36.6 C 80 19 96 11/03/23 23:00 105/56 L 11/03/23 22:30 36.6 C 80 15 96 11/03/23 22:30 99/58 L 11/03/23 22:00 36.7 C 68 23 92 11/03/23 22:00 103/58 L 11/03/23 21:30 36.7 C 80 20 96 11/03/23 21:30 98/57 L 11/03/23 21:01 36.7 C 80 18 92 11/03/23 21:01 104/53 L 11/03/23 21:00 36.7 C 80 20 91 11/03/23 20:30 36.7 C 80 19 97 11/03/23 20:30 97/55 L 11/03/23 20:20 Oxymask 2 11/03/23 20:00 36.8 C 80 7 L 97 11/03/23 20:00 100/56 L 11/03/23 20:00 80 117/53 L 11/03/23 19:30 36.8 C 80 16 97 11/03/23 19:30 104/56 L Lab & Micro Results (Past 24 Hours) RBC 3.14 M/uL (4.20-5.40) L 11/04/23 WBC 7.05 K/ul (4.8-10.8) 11/04/23 Hgb 8.3 g/dl (12.0-16.0) L 11/04/23 Hct 26.8 % (37.0-47.0) L 11/04/23 MCV 85.4 fL (80.0-100.0) 11/04/23 MCH 26.4 pg (25.0-34.0) 11/04/23 MCHC 31.0 g/dL (32.0-36.0) L 11/04/23 RDW Standard Deviation 48.8 fL (36.4-46.3) H 11/04/23 RDW Coefficient of Variation 18.2 % (11.5-14.5) H 11/04/23 Plt Count 147 K/uL (130-400) 11/04/23 MPV 9.9 fL (9.4-12.4) 11/04/23 Nucleated Red Blood Cells % (auto) 0.3 % 11/03 Nucleated RBC Absolute Count (auto) 0.02 K/uL (0.00-0.12) 0 11/04/23 Neutrophils (%) (Auto) 86.7 % 11/04/23 Lymphocytes (%) (Auto) 6.0 % 11/04/23 Monocytes # (Auto) 0.44 K/uL (0.11-0.59) 11/04/23 Eosinophils # (Auto) 0.00 K/uL (0.00-0.50) 11/04/23 Immature Granulocyte % (Auto) 1.0 % 11/04/23 Neutrophils # (Auto) 6.11 K/uL (1.40-6.50) 11/04/23 Lymphocytes # (Auto) 0.42 K/uL (1.20-3.40) L 11/04/23 Monocytes # (Auto) 0.44 K/uL (0.11-0.59) 11/04/23 Eosinophils # (Auto) 0.00 K/uL (0.00-0.50) 11/04/23 Basophils # (Auto) 0.01 K/uL (0.00-0.20) 11/04/23 Immature Granulocyte # (Auto) 0.07 K/uL (0.01-0.20) 4 Na 132 mmol/L (136-145) L 11/04/23 K 4.7 mmol/L (3.5-5.1) 11/04/23 Cl 107 mmol/L (98-107) 11/04/23 CO2 21 mmol/L (21-32) 11/04/23 Anion Gap 4 (3-11) 11/04/23 BUN 23 mg/dl (6-23) 11/04/23 Creatinine 1.14 mg/dl (0.6-1.2) 11/04/23 Estimated GFR ( Amer) 50.4 ml/min 11/04/23 Estimated GFR (Non-Af Amer) 43.5 ml/min 11/04/23 BUN/Creatinine Ratio 20.2 (10-20) H 11/04/23 Glu 77 mg/dl (70-99(Fasting)) 11/04/23 Ca 7.2 mg/dl (8.6-10.3) L 11/04/23 Phosphorus Level 3.4 mg/dl (2.5-4.9) 11/04/23 Mg 2.4 mg/dl (1.7-2.4) 11/04/23 03:51 Calcium Level 7.2 mg/dl (8.6-10.3) L 11/04/23 03:51 Diagnostic Findings (Past 24 Hours) Chest X-Ray 11/03/23 12:44 XR chest 1V portable HISTORY: Post pacemaker revision COMPARISON: Chest 11/01/2023. FINDINGS: There is a left-sided pacemaker again noted. No pneumothorax. The heart remains enlarged. There is mild central pulmonary vascular congestion without overt edema. This has slightly improved. Small left and trace right pleural effusions again noted. Left basilar densities persist. Calcifications within the aortic knob. No acute fractures. There are old, healed right-sided rib fractures again noted. Chronic elevation of the left hemidiaphragm again noted. There is a small catheter within the left upper quadrant. IMPRESSION: 1. Interval improvement in the mild pulmonary vascular congestion. 2. A small left pleural effusion and left basilar densities persist. ACT 112: Negative or not required by law. Electronically signed by: Jaron Neff M.D. 11/03/2023 2:06 PM I & O Totals 24 Hours 11/03/23 11/04/23 11/05/23 06:59 06:59 06:59 Intake Total 2497.6937 / 2497.6937 1000 / 1000 Output Total 326 / 326 276 / 276 Balance 2171.6937 / 2171.6937 724 / 724 Cumulative 10/25/23 08:57 thru 11/04/23 06:00 Intake Total 68400.5417 Output Total 5598 Balance 8408.5417 RT Ventilator Mngmt (Last Documented) Ventilator Ordered Settings Respiratory Rate 19 11/04/23 04:00 Ventilator - PT Measurements Respiratory Rate 19 Coding Level of Care Code 00367 CRITICAL CARE 1ST 30-74M Diagnoses Pericardial effusion with cardiac tamponade I31.39; I31.4 Malfunction of electrode lead of cardiac pacemaker T82.198A Chronic kidney disease with active medical management without dialysis, stage 2 (mild) N18.2 Acute kidney injury superimposed on CKD N17.9; N18.9 Misadventure during medical care Y69
[2023-11-04] MEDS: fentaNYL citrate PF 100 MCG/2 ML VIAL ONE (09:40)
--- NOTE | 2023-11-04 10:13 | XRay Report ---
XR chest 1V portable HISTORY: s/p discontinuing pericardial drain COMPARISON: Chest 11/03/2023. FINDINGS: No pneumothorax. Small left pleural effusion and left basilar densities persist. The cardia c silhouette remains mildly enlarged. Mild pulmonary edema persist. The left-sided pacemaker again no gordon. No acute fractures. The pericardial drain has been removed in the interval. Left perihilar hazy density is new from the prior study and favors layering pleural fluid. IMPRESSION: 1. Interval removal of the pericardial drain. 2. Left pleural effusion again noted. There is a left perihilar hazy density which is new from the pr ior study and favors the layering pleural effusion. 3. Mild pulmonary edema persists. 4. Stable mild enlargement of the cardiac silhouette. ACT 112: Negative or not required by law. Electronically signed by: Jaron Neff M.D. 11/04/2023 10:12 AM
--- NOTE | 2023-11-04 11:59 | Electrocardiogram Report ---
Test Reason : Blood Pressure : / mmHG Vent. Rate : 159 BPM Atrial Rate : 000 BPM P-R Int : 000 ms QRS Dur : 040 ms QT Int : 258 ms P-R-T Axes : -04 264 -21 degrees QTc Int : 419 ms A-V sequential pacing Abnormal ECG When compared with ECG of 03-NOV-2023 05:02, Vent. rate has increased BY 47 BPM Confirmed by Gonzalez Felipe ([id number]) on 11/04/2023 11:59:41 AM Referred By: REFERRED SELF Confirmed By:Jamison Felipe
--- NOTE | 2023-11-04 15:20 | Cardiology Progress Note ---
Date of Service November 04, 2023 Assessment & Plan (1) Malfunction of electrode lead of cardiac pacemaker: (2) Pericardial effusion with cardiac tamponade: (3) Anticoagulant long-term use: Plan 1. Ventricular lead malfunction: Her chronic ventricular lead failed due to rising thresholds, her replacement ventricular lead appeared to be through the ventricular wall although it probably was not what caused the pericardial effusion (that probably occurred earlier with multiple pacing sites tested). Repositioning yesterday did not result in further bleeding. The measurements at the time of surgery were quite elevated in both atrial and ventricular lead, the reasons for these high thresholds remains unclear since the atrial lead has been in place for many years and today that lead has much better thresholds and the impedance on these leads was unchanged and normal. In any case the ventricular lead is working well today and appears to be in good position on chest x-ray. 2. Pericardial effusion: Presumably due to perforation, I suspect due to multiple repositioning attempts to get reasonable numbers at the initial surgery. This appears to have resolved and the pericardial catheter has now been removed. 3. Anticoagulation: I would hold off on anticoagulation, there is no reason to anticoagulate at this point since she has remained in sinus rhythm. We should restart it at some point but I would hold off for now. I anticipate that she will be in the hospital over the weekend, we do want to reevaluate and reprogram her pacemaker prior to discharge. If she would go home over the weekend please contact us directly and we can make arrangements to evaluate and reprogram the device over the weekend, otherwise I will plan on Tuesday morning. Admission and Anticipated Discharge Date Admission Date: October 25, 2023 Subjective She continues to do well symptomatically, she is little uncomfortable in bed but does not have any chest discomfort and does not have significant incisional discomfort. Physical Exam Physical Exam: Constitutional: Alert, cooperative and in no distress. Laying supine in bed. Neck: No jugular venous distention, carotid pulses are normal and equal bilaterally without bruits. Pulmonary: Clear to auscultation bilaterally. Cardiac: Regular rhythm with no murmur, gallop or rub. Abdomen: Soft, nontender with normal bowel sounds. Extremities: No edema. Neurologic: No focal findings. Skin: The device site on the left is healing well with minimal bleeding. Dressing change. The dressing on the right is clean and dry and was not changed. Results & Data Vital Signs (Past 12 Hours) Vital Signs Temp Pulse Pulse Resp BP BP BP 11/04/23 13:00 11/04/23 11:40 36.6 C 80 17 11/04/23 11:40 99/57 L 11/04/23 11:35 36.6 C 79 19 11/04/23 11:35 108/59 L 11/04/23 11:30 36.6 C 80 19 11/04/23 11:30 109/60 11/04/23 11:25 36.6 C 80 19 11/04/23 11:25 107/59 L 11/04/23 11:20 36.6 C 80 21 11/04/23 11:20 103/53 L 11/04/23 11:15 36.6 C 79 19 11/04/23 11:15 107/61 11/04/23 11:10 101/56 L 11/04/23 11:10 36.6 C 80 16 11/04/23 11:05 36.6 C 80 18 11/04/23 11:05 102/58 L 11/04/23 11:00 36.6 C 80 18 11/04/23 11:00 103/58 L 11/04/23 10:55 36.5 C 80 19 11/04/23 10:55 100/58 L 11/04/23 10:50 36.5 C 80 17 11/04/23 10:50 99/57 L 11/04/23 10:45 36.5 C 79 15 11/04/23 10:45 99/62 L 11/04/23 10:40 36.5 C 80 19 11/04/23 10:40 108/61 11/04/23 10:40 80 20 108/61 11/04/23 10:35 36.5 C 80 18 11/04/23 10:35 106/61 11/04/23 10:35 80 20 106/61 11/04/23 10:30 36.5 C 81 20 11/04/23 10:30 106/57 L 11/04/23 10:30 80 20 106/57 L 11/04/23 10:25 36.5 C 80 22 11/04/23 10:25 102/58 L 11/04/23 10:25 80 20 102/58 L 11/04/23 10:20 79 20 97/65 L 11/04/23 10:00 36.5 C 80 29 H 11/04/23 10:00 97/65 L 11/04/23 09:30 107/62 11/04/23 09:30 36.5 C 79 16 11/04/23 09:00 108/58 L 11/04/23 09:00 36.4 C L 79 18 11/04/23 08:30 36.4 C L 79 18 11/04/23 08:30 121/62 11/04/23 08:02 80 128/60 11/04/23 08:00 116/68 11/04/23 08:00 36.4 C L 80 17 11/04/23 07:45 11/04/23 07:43 80 11/04/23 07:35 128/60 11/04/23 07:35 36.5 C 80 25 H 11/04/23 07:00 36.5 C 80 13 11/04/23 06:30 105/58 L 11/04/23 06:30 36.5 C 80 17 11/04/23 06:00 36.5 C 80 15 11/04/23 06:00 114/62 11/04/23 05:30 36.5 C 80 27 H 11/04/23 05:30 125/59 L 11/04/23 05:00 36.5 C 80 21 11/04/23 04:30 36.6 C 80 16 11/04/23 04:30 102/57 L 11/04/23 04:00 101/60 11/04/23 04:00 36.6 C 80 19 11/04/23 04:00 80 121/57 L 11/04/23 03:30 101/58 L 11/04/23 03:30 36.6 C 80 18 Pulse Ox O2 Del Method O2 Del Method O2 Flow Rate O2 Flow Rate 11/04/23 13:00 Nasal Cannula 2 11/04/23 11:40 95 11/04/23 11:40 11/04/23 11:35 96 11/04/23 11:35 11/04/23 11:30 95 11/04/23 11:30 11/04/23 11:25 96 11/04/23 11:25 11/04/23 11:20 95 11/04/23 11:20 11/04/23 11:15 96 11/04/23 11:15 11/04/23 11:10 11/04/23 11:10 97 11/04/23 11:05 97 11/04/23 11:05 11/04/23 11:00 97 11/04/23 11:00 11/04/23 10:55 97 11/04/23 10:55 11/04/23 10:50 98 11/04/23 10:50 11/04/23 10:45 97 11/04/23 10:45 11/04/23 10:40 95 11/04/23 10:40 11/04/23 10:40 96 Oxymask 2 11/04/23 10:35 97 11/04/23 10:35 11/04/23 10:35 96 Oxymask 2 11/04/23 10:30 97 11/04/23 10:30 11/04/23 10:30 96 Oxymask 2 11/04/23 10:25 97 11/04/23 10:25 11/04/23 10:25 95 Oxymask 2 11/04/23 10:20 95 Oxymask 2 11/04/23 10:00 96 11/04/23 10:00 11/04/23 09:30 11/04/23 09:30 95 11/04/23 09:00 11/04/23 09:00 94 11/04/23 08:30 96 11/04/23 08:30 11/04/23 08:02 11/04/23 08:00 11/04/23 08:00 94 11/04/23 07:45 Oxymask 2 11/04/23 07:43 11/04/23 07:35 11/04/23 07:35 94 11/04/23 07:00 98 11/04/23 06:30 11/04/23 06:30 97 11/04/23 06:00 97 11/04/23 06:00 11/04/23 05:30 95 11/04/23 05:30 11/04/23 05:00 98 11/04/23 04:30 99 11/04/23 04:30 11/04/23 04:00 11/04/23 04:00 99 11/04/23 04:00 11/04/23 03:30 11/04/23 03:30 98 Laboratory Results CBC 11/04/23 Range/Units 03:51 WBC 7.05 (4.8-10.8) K/ul RBC 3.14 L (4.20-5.40) M/uL Hgb 8.3 L (12.0-16.0) g/dl Hct 26.8 L (37.0-47.0) % Plt Count 147 (130-400) K/uL Neut # (Auto) 6.11 (1.40-6.50) K/uL Lymph # (Auto) 0.42 L (1.20-3.40) K/uL Gregory # (Auto) 0.44 (0.11-0.59) K/uL Eos # (Auto) 0.00 (0.00-0.50) K/uL Baso # (Auto) 0.01 (0.00-0.20) K/uL Comprehensive Metabolic Panel 11/04/23 Range/Units 03:51 Sodium 132 L (136-145) mmol/L Potassium 4.7 (3.5-5.1) mmol/L Chloride 107 (98-107) mmol/L Carbon Dioxide 21 (21-32) mmol/L BUN 23 (6-23) mg/dl Creatinine 1.14 (0.6-1.2) mg/dl Glucose 77 (70-99(Fasting)) mg/dl Calcium 7.2 L (8.6-10.3) mg/dl Intake and Output 11/04/23 11/04/23 11/04/23 06:59 14:59 22:59 Intake Total 0 / 1000 0 / 0 Output Total 276 55 / 55 Balance -116 / 724 -55 / -55 Intake: Oral 0 / 0 0 / 0 Output: Urine Amount (Catheter) 55 / 55 Vyas/Indwelling 55 / 55 Other: Weight 59.1 kg Weight Measurement Method Built in [facility] Diagnostic Findings Postop ECG: AV pacing appropriately Telemetry: AV sequential pacing throughout Chest x-ray: The lead appears to be in good position Pacemaker evaluation: Both the atrial and ventricular pacing thresholds have improved substantially. The device was reprogrammed but still remains at higher than normal outputs. We will leave it at 80 bpm over the weekend. PG Care Time/CCT Total # of Minutes Spent Total Time Spent with Patient: Total time spent is greater than 50% in coordination of care (as documented) at patient's floor/unit and/or counseling patient: Coding Level of Care Code 20118 Post Operative Follow-Up Diagnoses Malfunction of electrode lead of cardiac pacemaker T82.198A Pericardial effusion with cardiac tamponade I31.39; I31.4 Anticoagulant long-term use Z79.01 CPT Codes Dual Lead Pacemaker System - 82267 ([id number])
--- NOTE | 2023-11-04 15:55 | Hospitalist Progress Note ---
Date of Service November 04, 2023 Assessment & Plan (1) Acute kidney injury: (2) Chronic kidney disease with active medical management without dialysis, stage 2 (mild): (3) Hyperkalemia: (4) Pacemaker malfunction: (5) CAD (coronary artery disease): (6) Paroxysmal atrial fibrillation: Plan Pt is a 87 yo female with a past medical history of pacemaker for Mobitz type 2 block, previous syncope with ventricular tachycardia, CKD stage 2, CHF, paroxysmal afib, and HTN who presents to the hospital on 10/24 for mechanical fall and admitted for PT/OT recs and for pacemaker malfunction. #Mechanical fall with walker - CT head negative - CTAP significant for S3 fracture - Fall precautions - PT/OT; recommend rehab #Pacemaker Malfunction - presented with pacemaker loss of capture, pacing output maximized with subsequent capture, paced in the 60s overnight - Pacemaker revision performed on 11/01/23. Pt w/pericardial effusion requiring pericardicentesis and drain placement occurred; pt in ICU with field underwriter consult - Pacemaker revision 11/03/23 with successful lead placement and capture. - Continue management per field underwriter, comedian #IGNACIO in patient with CKD, resolved - Likely secondary to volume contraction, potentially also exacerbated by reduced cardiac output in the setting of pacemaker malfunction. - Nephrology consulted, appreciate recs: - Encourage PO fluids - Jardiance, spironolactone held in the setting of IGNACIO okay restart at discharge #Hyperkalemia - Improved, today was 5.2 - Lokelma discontinued - Low K diet - Consider lowering dose of spironolactone at discharge #Anemia, chronic: - Hgb 9.0 on admission, then 7.1 (10/26), 7.6 - IV Venofer x4 days, day 4 of 4 today - H&H checks, transfuse for Hgb <7 or if symptomatic - stool occult positive, recommend outpatient workup/colonoscopy since hgb stable here VTE ppx: Eliquis Admission and Anticipated Discharge Date Admission Date: October 25, 2023 Supervising Physician Co-Signing Physician Notes I personally examined the patient and verified clark points of history and exam, discussed case, and agree with decision making and plan documented by Dr. Kelley. Patient remains in ICU for management of cardiac tamponade due to pericardial effusion s/p pacemaker lead revision 11/01/2023. Pericardial drain placed 11/01/2023 and removed today. Successful pacemaker lead placement on 11/03/2023. Patient continues to have low urine output, kidney function stable. Anticoagulation currently on hold. VSS. Continue to monitor closely. Subjective Patient seen and evaluated at bedside. Remains fatigued, no specific complaints today. Review of Systems Review of Systems: reviewed, per HPI Physical Exam Physical Exam: Constitutional: Alert, interactive, NAD, pepe in place draining minimal urine, pericardial cath in place with very minimal output. HEENT: NCAT, no conjunctival injection CV: paced rate 80, extremities well-perfused, no LE edema Resp: no increased work of breathing MSK: no gross deformities appreciated Skin: femoral central and a-line in place, pepe in place, pericardial drain in place. widespread ecchymosis in areas of line placement Neuro: alert, no focal neurologic deficit appreciated Results & Data Results & Data Vital Signs (Past 12 Hours) Vital Signs Temp Pulse Pulse Resp BP BP BP 11/04/23 15:13 11/04/23 15:13 11/04/23 13:00 11/04/23 11:40 36.6 C 80 17 11/04/23 11:40 99/57 L 11/04/23 11:35 36.6 C 79 19 11/04/23 11:35 108/59 L 11/04/23 11:30 36.6 C 80 19 11/04/23 11:30 109/60 11/04/23 11:25 36.6 C 80 19 11/04/23 11:25 107/59 L 11/04/23 11:20 36.6 C 80 21 11/04/23 11:20 103/53 L 11/04/23 11:15 36.6 C 79 19 11/04/23 11:15 107/61 11/04/23 11:10 101/56 L 11/04/23 11:10 36.6 C 80 16 11/04/23 11:05 36.6 C 80 18 11/04/23 11:05 102/58 L 11/04/23 11:00 36.6 C 80 18 11/04/23 11:00 103/58 L 11/04/23 10:55 36.5 C 80 19 11/04/23 10:55 100/58 L 11/04/23 10:50 36.5 C 80 17 11/04/23 10:50 99/57 L 11/04/23 10:45 36.5 C 79 15 11/04/23 10:45 99/62 L 11/04/23 10:40 36.5 C 80 19 11/04/23 10:40 108/61 11/04/23 10:40 80 20 108/61 11/04/23 10:35 36.5 C 80 18 11/04/23 10:35 106/61 11/04/23 10:35 80 20 106/61 11/04/23 10:30 36.5 C 81 20 11/04/23 10:30 106/57 L 11/04/23 10:30 80 20 106/57 L 11/04/23 10:25 36.5 C 80 22 11/04/23 10:25 102/58 L 11/04/23 10:25 80 20 102/58 L 11/04/23 10:20 79 20 97/65 L 11/04/23 10:00 36.5 C 80 29 H 11/04/23 10:00 97/65 L 11/04/23 09:30 107/62 11/04/23 09:30 36.5 C 79 16 11/04/23 09:00 108/58 L 11/04/23 09:00 36.4 C L 79 18 11/04/23 08:30 36.4 C L 79 18 11/04/23 08:30 121/62 11/04/23 08:02 80 128/60 11/04/23 08:00 116/68 11/04/23 08:00 36.4 C L 80 17 11/04/23 07:45 11/04/23 07:43 80 11/04/23 07:35 128/60 11/04/23 07:35 36.5 C 80 25 H 11/04/23 07:00 36.5 C 80 13 11/04/23 06:30 105/58 L 11/04/23 06:30 36.5 C 80 17 11/04/23 06:00 36.5 C 80 15 11/04/23 06:00 114/62 11/04/23 05:30 36.5 C 80 27 H 11/04/23 05:30 125/59 L 11/04/23 05:00 36.5 C 80 21 11/04/23 04:30 36.6 C 80 16 11/04/23 04:30 102/57 L 11/04/23 04:00 101/60 11/04/23 04:00 36.6 C 80 19 11/04/23 04:00 80 121/57 L Pulse Ox O2 Del Method O2 Del Method O2 Flow Rate O2 Flow Rate 11/04/23 15:13 2 11/04/23 15:13 94 11/04/23 13:00 Nasal Cannula 2 11/04/23 11:40 95 11/04/23 11:40 11/04/23 11:35 96 11/04/23 11:35 11/04/23 11:30 95 11/04/23 11:30 11/04/23 11:25 96 11/04/23 11:25 11/04/23 11:20 95 11/04/23 11:20 11/04/23 11:15 96 11/04/23 11:15 11/04/23 11:10 11/04/23 11:10 97 11/04/23 11:05 97 11/04/23 11:05 11/04/23 11:00 97 11/04/23 11:00 11/04/23 10:55 97 11/04/23 10:55 11/04/23 10:50 98 11/04/23 10:50 11/04/23 10:45 97 11/04/23 10:45 11/04/23 10:40 95 11/04/23 10:40 11/04/23 10:40 96 Oxymask 2 11/04/23 10:35 97 11/04/23 10:35 11/04/23 10:35 96 Oxymask 2 11/04/23 10:30 97 11/04/23 10:30 11/04/23 10:30 96 Oxymask 2 11/04/23 10:25 97 11/04/23 10:25 11/04/23 10:25 95 Oxymask 2 11/04/23 10:20 95 Oxymask 2 11/04/23 10:00 96 11/04/23 10:00 11/04/23 09:30 11/04/23 09:30 95 11/04/23 09:00 11/04/23 09:00 94 11/04/23 08:30 96 11/04/23 08:30 11/04/23 08:02 11/04/23 08:00 11/04/23 08:00 94 11/04/23 07:45 Oxymask 2 11/04/23 07:43 11/04/23 07:35 11/04/23 07:35 94 11/04/23 07:00 98 11/04/23 06:30 11/04/23 06:30 97 11/04/23 06:00 97 11/04/23 06:00 11/04/23 05:30 95 11/04/23 05:30 11/04/23 05:00 98 11/04/23 04:30 99 11/04/23 04:30 11/04/23 04:00 11/04/23 04:00 99 11/04/23 04:00 Resident Activity Tracking Resident Involvement: Resident Care Provided Care Provided: Adult Hospital Medicine
[2023-11-04] MEDS: SPIRONOLACTONE 25 MG TAB PO ONE (18:56)
[2023-11-04] MEDS: EMPAGLIFLOZIN 10 MG TAB PO ONE (18:56)
[2023-11-05 05:55] LABS: Basophils # (auto) 0.01 K/uL (0.00-0.20); Basophils % (auto) 0.2 %; Hematocrit (blood only) 27.8 % (37.0-47.0); Hemoglobin 8.6 g/dl (12.0-16.0); Immature Granulocytes # (auto) 0.07 K/uL (0.01-0.20); Immature Granulocytes % (auto) 1.3 %; Lymphocytes % (auto) 7.4 %; Mean Corpuscular Hgb Conc 30.9 g/dL (32.0-36.0); Mean Corpuscular Volume 87.1 fL (80.0-100.0); Mean Platelet Volume 9.5 fL (9.4-12.4); Monocytes # (auto) 0.44 K/uL (0.11-0.59); Monocytes % (auto) 8.2 %; Neutrophils # (auto) 4.45 K/uL (1.40-6.50); Neutrophils % (auto) 82.9 %; Nucleated RBC # (auto) 0.03 K/uL (0.00-0.12); Nucleated RBC % (auto) 0.6 %; Platelet Count 140 K/uL (130-400); RDW Coefficient of Variation 18.6 % (11.5-14.5); RDW Standard Deviation 49.3 fL (36.4-46.3); Red Blood Count 3.19 M/uL (4.20-5.40); White Blood Count 5.37 K/ul (4.8-10.8)
[2023-11-05 06:03] LABS: BUN Creatinine Ratio 19.5 (10-20); Calcium 7.6 mg/dl (8.6-10.3); Creatinine Clr Calc Pharmacy 28.3 ml/min; Magnesium 2.4 mg/dl (1.7-2.4); Phosphorus 2.8 mg/dl (2.5-4.9)
--- NOTE | 2023-11-05 11:12 | Hospitalist Progress Note ---
Date of Service November 05, 2023 Assessment & Plan (1) Acute kidney injury: (2) Chronic kidney disease with active medical management without dialysis, stage 2 (mild): (3) Hyperkalemia: (4) Pacemaker malfunction: (5) CAD (coronary artery disease): (6) Paroxysmal atrial fibrillation: Plan Pt is a 87 yo female with a past medical history of pacemaker for Mobitz type 2 block, previous syncope with ventricular tachycardia, CKD stage 2, CHF, paroxysmal afib, and HTN who presents to the hospital on 10/24 for mechanical fall and admitted for PT/OT recs and for pacemaker malfunction. #Mechanical fall with walker - CT head negative - CTAP significant for S3 fracture - Fall precautions - PT/OT; recommend rehab #Pacemaker Malfunction - presented with pacemaker loss of capture, pacing output maximized with subsequent capture, paced in the 60s overnight - Pacemaker revision performed on 11/01/23. Pt w/pericardial effusion requiring pericardicentesis and drain placement occurred; pt in ICU with president/gm production & live experiences consult - Pacemaker revision 11/03/23 with successful lead placement and capture. - Continue management per president/gm production & live experiences, associate financial planner #IGNACIO in patient with CKD, resolved - Likely secondary to volume contraction, potentially also exacerbated by reduced cardiac output in the setting of pacemaker malfunction. - Nephrology consulted, appreciate recs: - Encourage PO fluids - Jardiance, spironolactone held in the setting of IGNACIO okay restart at discharge #Hyperkalemia - Improved, today was 5.2 - Lokelma discontinued - Low K diet - Consider lowering dose of spironolactone at discharge #Anemia, chronic: - Hgb 9.0 on admission, then 7.1 (10/26), 7.6 - IV Venofer x4 days, day 4 of 4 today - H&H checks, transfuse for Hgb <7 or if symptomatic - stool occult positive, recommend outpatient workup/colonoscopy since hgb stable here VTE ppx: Eliquis Admission and Anticipated Discharge Date Admission Date: October 25, 2023 Supervising Physician Co-Signing Physician Notes I personally examined the patient and verified clark points of history and exam, discussed case, and agree with decision making and plan documented by Dr. Kelley. Patient downgraded from critical care today, she reports feeling better. Low urine output continues, monitor closely. Hemoglobin stable at 8.6, anticoagulation remains on hold. Updated patient's son/POA Enoch. Subjective Patient seen and evaluated at bedside. Resting comfortably this am. No specific complaints. Continues producing very little urine. Review of Systems Review of Systems: reviewed, per HPI Physical Exam Physical Exam: Constitutional: Alert, interactive, NAD, pepe in place draining minimal urine HEENT: NCAT, no conjunctival injection CV: paced rate 80, extremities well-perfused, no LE edema Resp: no increased work of breathing MSK: no gross deformities appreciated Skin: femoral central and a-line in place, pepe in place, pericardial drain in place. widespread ecchymosis in areas of line placement Neuro: alert, no focal neurologic deficit appreciated Results & Data Results & Data Vital Signs (Past 12 Hours) Vital Signs Temp Pulse Resp BP Pulse Ox 11/05/23 08:00 112/63 11/05/23 08:00 36.0 C L 80 19 90 11/05/23 07:00 104/57 L 11/05/23 07:00 35.9 C L 80 21 96 11/05/23 06:00 36.0 C L 81 13 94 11/05/23 06:00 109/61 11/05/23 05:00 106/61 11/05/23 05:00 36.0 C L 80 16 96 11/05/23 04:00 36.1 C L 80 15 91 11/05/23 04:00 103/63 11/05/23 03:00 36.1 C L 80 15 94 11/05/23 03:00 103/63 11/05/23 02:00 36.1 C L 80 28 H 94 11/05/23 02:00 102/59 L 11/05/23 01:00 36.1 C L 78 19 90 11/05/23 01:00 98/59 L 11/05/23 00:00 36.2 C L 80 11 L 98 11/05/23 00:00 101/59 L 11/05/23 00:00 81 11/04/23 23:11 36.4 C L 80 16 94 11/04/23 23:11 95/74 L Resident Activity Tracking Resident Involvement: Resident Care Provided Care Provided: Adult [facility] Medicine
[2023-11-05] MEDS: SPIRONOLACTONE 25 MG TAB PO SCH (12:32)
[2023-11-05] MEDS: EMPAGLIFLOZIN 10 MG TAB PO SCH (12:33)
--- NOTE | 2023-11-05 12:46 | Critical Care Progress Note ---
Date of Service November 05, 2023 Assessment & Plan (1) Pericardial effusion with cardiac tamponade: Plan: Reason Critically Ill: 87-year-old female with pericardial tamponade status post pericardial effusion status post pacemaker lead revision status post pacemaker malfunction PLAN: CV: History of CHF History of atrial fibrillation on amiodarone Complete heart block status post pacemaker placement: Improved Pericardial tamponade status post drain placement: Improved -Drain management per cardiology: Removing this morning deferring to them to do any follow-up imaging Acute arterial hypotension secondary to acute blood loss anemia on chronic anem ia: Resolved -Off all vasoactive Fluids/Renal: Acute kidney injury on chronic kidney disease stage III: -Still low urine output however we will reinstitute patient's diuretics, I feel she is euvolemic and creatinine is stable ID: Anti-infectives per electrophysiology given operative procedure GI/Nutrition: Advance diet as tolerated -Speech therapy consult reviewed, she was able to take her pills this morning I feel the benefits of administering medications outweigh the risks of aspiration at this time Heme: Acute blood loss anemia on chronic anemia - s/p 1 unit of pRBCs, no indication for additional blood product at this time -cold antibody present on repeat screening DVT prophylaxis: SCDs as chemical prophylaxis is contraindicated -Referral to cardiology with regards to restarting chemoprophylaxis Endocrine: ICU hyperglycemia protocol Vascular access: Can discontinue aterial line Code Status: DNR in the event of cardiac arrest Disposition: Stable for downgrade out of ICU (2) Malfunction of electrode lead of cardiac pacemaker: (3) Chronic kidney disease with active medical management without dialysis, stage 2 (mild): (4) Acute kidney injury superimposed on CKD: (5) Misadventure during medical care: Admission and Anticipated Discharge Date Admission Date: October 25, 2023 Results & Data Results & Data Vital Signs (Past 12 Hours) Vital Signs Temp Pulse Resp BP Pulse Ox 11/05/23 08:00 112/63 11/05/23 08:00 36.0 C L 80 19 90 11/05/23 07:00 104/57 L 11/05/23 07:00 35.9 C L 80 21 96 11/05/23 06:00 36.0 C L 81 13 94 11/05/23 06:00 109/61 11/05/23 05:00 106/61 11/05/23 05:00 36.0 C L 80 16 96 11/05/23 04:00 36.1 C L 80 15 91 11/05/23 04:00 103/63 11/05/23 03:00 36.1 C L 80 15 94 11/05/23 03:00 103/63 11/05/23 02:00 36.1 C L 80 28 H 94 11/05/23 02:00 102/59 L 11/05/23 01:00 36.1 C L 78 19 90 11/05/23 01:00 98/59 L Coding Level of Care Code 32065 SUB INP/OBS CARE 09/08MIN Diagnoses Pericardial effusion with cardiac tamponade I31.39; I31.4 Malfunction of electrode lead of cardiac pacemaker T82.198A Chronic kidney disease with active medical management without dialysis, stage 2 (mild) N18.2 Acute kidney injury superimposed on CKD N17.9; N18.9 Misadventure during medical care Y69
[2023-11-05] MEDS ORDERED: ONDANSETRON INJ 2 MG/ML 2 ML VIAL IV PRN (15:35)
[2023-11-05] MEDS ORDERED: ALUMINUM/MAGNESIUM SUSP 30 ML UDC PO PRN (15:35)
[2023-11-05] MEDS ORDERED: POLYETHYLENE (MIRALAX) 17 GM PACK PO PRN (15:35)
[2023-11-05] MEDS ORDERED: ACETAMINOPHEN 325 MG TAB PO PRN (15:35)
[2023-11-05] MEDS ORDERED: MAGNESIUM HYDROXIDE SUSP 30 ML UDC PO PRN (15:35)
[2023-11-05] MEDS: ALBUMIN 25% 25 GM/100 ML VIAL IV SCH (16:59)
[2023-11-05] MEDS: FUROSEMIDE INJ 20 MG/2 ML VIAL IV ONE (16:59)
--- NOTE | 2023-11-05 17:18 | XRay Report ---
XR chest 1V portable CLINICAL HISTORY: Cough. COMPARISON STUDY: Chest CT April 07, 2023. Chest radiograph November 04, 2023. FINDINGS: There is no pneumothorax. Small to moderate left and small right pleural effusions are agai n noted. Interstitial thickening and bilateral opacities have progressed. Enlargement of the cardiac silhouette is similar to prior exam. Left subclavian pacer remains in place. IMPRESSION: 1. Progression of interstitial thickening and bilateral alveolar opacities. The findings favor pulmon lopez edema. Pneumonia could appear similar. 2. Stable enlargement of the cardiac silhouette. 3. Small to moderate left and small right pleural effusions. ACT 112: Negative or not required by law. Electronically signed by: Gene Youssef M.D. 11/05/2023 5:17 PM
[2023-11-06 07:11] LABS: Basophils # (auto) 0.01 K/uL (0.00-0.20); Basophils % (auto) 0.2 %; Hematocrit (blood only) 25.5 % (37.0-47.0); Hemoglobin 7.9 g/dl (12.0-16.0); Immature Granulocytes # (auto) 0.08 K/uL (0.01-0.20); Immature Granulocytes % (auto) 1.5 %; Lymphocytes # (auto) 0.47 K/uL (1.20-3.40); Lymphocytes % (auto) 8.8 %; Mean Corpuscular Hemoglobin 27.2 pg (25.0-34.0); Mean Corpuscular Volume 87.9 fL (80.0-100.0); Mean Platelet Volume 9.7 fL (9.4-12.4); Monocytes # (auto) 0.71 K/uL (0.11-0.59); Monocytes % (auto) 13.3 %; Neutrophils # (auto) 4.08 K/uL (1.40-6.50); Neutrophils % (auto) 76.2 %; Nucleated RBC # (auto) 0.05 K/uL (0.00-0.12); Nucleated RBC % (auto) 0.9 %; Platelet Count 130 K/uL (130-400); RDW Coefficient of Variation 19.2 % (11.5-14.5); RDW Standard Deviation 49.1 fL (36.4-46.3); White Blood Count 5.35 K/ul (4.8-10.8)
[2023-11-06 07:28] LABS: Albumin Globulin Ratio 1.8 (0.9-2); Albumin Level 3.6 gm/dl (3.4-5.0); BUN Creatinine Ratio 18.9 (10-20); Bilirubin,Total 0.9 mg/dl (0.2-1.0); Calcium 7.9 mg/dl (8.6-10.3); Creatinine Clr Calc Pharmacy 24.2 ml/min; Est GFR (African American) 42.2 ml/min; Est GFR (Non-African American) 36.4 ml/min; Magnesium 2.4 mg/dl (1.7-2.4); Phosphorus 2.1 mg/dl (2.5-4.9); Potassium 5.2 mmol/L (3.5-5.1); Total Protein 5.6 gm/dl (6.0-8.3)
[2023-11-06] MEDS: ALENDRONATE SODIUM 70 MG TAB PO SCH (08:26)
[2023-11-06 08:38] LABS: Anisocytosis Present; Hypochromasia Present; Polychromasia 1+; Tear Drop Cells 1+
--- NOTE | 2023-11-06 10:30 | Nephrology Progress Note ---
Date of Service November 06, 2023 Assessment & Plan (1) Acute kidney injury superimposed on CKD: (2) Anemia: (3) Oliguria: Plan 87 year old white female with complicated hospital course over almost 2 weeks. She has CKD stage G2/A3 (moderate impairment). Baseline Cr has been 0.8 w/ EGFR 65 cc/min. Urine sediment has been benign. UPCR 0.6. 06/04 renal US revealed cortical scarring c/w microvascular disease. In 07/07 Ms. Mata was hospitalized for CHF. Echocardiogram revealed LVEF 30-35%. She was started on Entresto and Spironolactone. Outpatient follow up at CHF clinic established EDW 110 lbs. Entresto was stopped due to relative hypotension but patient remained on Spironolactone therapy. She presented with a mechanical fall, ER evaluation was negative for CVA or spinal injury. Abdominal CT negative for post renal obstruction Creatinine was noted to be elevated at 2.6 and serum potassium 6.5, thought to be due to volume depletion. Kidney function eventually improved and hyperkalemia resolved. Hospital course complicated by pericardial tamponade after cardiac perforation related to pacer lead. Over last few days she was noted to have decreased urine output. Blood pressure has been relatively low. Yesterday she received 20 of IV Lasix without significant improvement in urine output. Clinically she seems volume overloaded with significant pulmonary congestion. -- Lasix 40 mg IV x 1 dose, continue to monitor intake and output -- Labs in a.m. since slight change in creatinine noted Admission and Anticipated Discharge Date Admission Date: October 25, 2023 Harsh Day was seen and evaluated this morning. She denied shortness of breath but noted to have significant conversational dyspnea and she sounded quite congested. Complain of pain in right arm hematoma area. Blood pressure staying relatively low. Urine output low about 350 mL since yesterday. Slight increase in creatinine to 1.3 noted on labs this morning. Review of Systems Review of Systems: Detailed review of system was done and pertinent positives and negatives were mentioned above. Physical Exam Constitutional: WD/WN, vitals as above no acute distress Eyes: + anicteric sclerae Neck: normal visual inspection Respiratory: Auscultation: + diminished lung sounds and + crackles Cardiovascular: Rate/Rhythm: regular rate and regular rhythm Heart Sounds: normal S1 and normal S2 Extremities: + edema Skin: + ecchymosis (in rt sided axillary area) Neurologic: no focal motor deficits Psychiatric: Orientation: alert and oriented x 3 Results & Data Vital Signs (Past 12 Hours) Vital Signs Temp Pulse Pulse Resp BP BP BP 11/06/23 08:33 36.6 C 101 H 20 95/66 L 11/06/23 07:41 11/06/23 04:19 96 H 11/06/23 03:43 36.5 C 97 H 18 107/76 11/06/23 00:30 11/06/23 00:30 36.4 C L 57 L 20 94/55 L Pulse Ox O2 Del Method O2 Flow Rate 11/06/23 08:33 92 Nasal Cannula 4.0 11/06/23 07:41 Nasal Cannula 4 11/06/23 04:19 11/06/23 03:43 95 Nasal Cannula 4.0 11/06/23 00:30 Nasal Cannula 4 11/06/23 00:30 93 Nasal Cannula 4 PG Care Time/CCT Total # of Minutes Spent Total Time Spent with Patient: Total time spent is greater than 50% in coordination of care (as documented) at patient's floor/unit and/or counseling patient: Coding Level of Care Code 56994 SUB INP/OBS CARE 2/35MIN Diagnoses Acute kidney injury superimposed on CKD N17.9; N18.9 Anemia D64.9 Oliguria R34
[2023-11-06] MEDS: FUROSEMIDE 40 MG/4 ML VIAL IV ONE ×2 (10:52→13:52)
[2023-11-06 12:34] LABS: Basophils # (auto) 0.02 K/uL (0.00-0.20); Basophils % (auto) 0.3 %; Hematocrit (blood only) 29.2 % (37.0-47.0); Hemoglobin 8.7 g/dl (12.0-16.0); Immature Granulocytes % (auto) 1.4 %; Lymphocytes # (auto) 0.42 K/uL (1.20-3.40); Lymphocytes % (auto) 5.7 %; Mean Corpuscular Hemoglobin 26.4 pg (25.0-34.0); Mean Corpuscular Hgb Conc 29.8 g/dL (32.0-36.0); Mean Corpuscular Volume 88.8 fL (80.0-100.0); Mean Platelet Volume 9.7 fL (9.4-12.4); Monocytes % (auto) 12.2 %; Neutrophils # (auto) 5.91 K/uL (1.40-6.50); Neutrophils % (auto) 80.4 %; Nucleated RBC # (auto) 0.07 K/uL (0.00-0.12); Platelet Count 149 K/uL (130-400); RDW Coefficient of Variation 19.3 % (11.5-14.5); RDW Standard Deviation 52.2 fL (36.4-46.3); Red Blood Count 3.29 M/uL (4.20-5.40); White Blood Count 7.35 K/ul (4.8-10.8)
[2023-11-06 12:41] LABS: Base Excess ABG -7.6 mEq/L (-9-1.8); HCO3 ABG 20 mmol/L (19-24); Oxygen Saturation ABG 91.5 % (90-95); PCO2 ABG 50 mmHg (35-46); PO2 ABG 63 mmHg (80-95); pH ABG 7.21 (7.35-7.45)
[2023-11-06 12:43] LABS: Allen Test Pos (Pos)
--- NOTE | 2023-11-06 12:46 | XRay Report ---
XR chest 1V portable CLINICAL HISTORY: Hypoxia TECHNIQUE: Single frontal radiograph of the chest was obtained. Comparison: Comparison is made to chest radiograph 11/05/2023 FINDINGS: An implanted pacemaker is seen. Cardiomegaly is noted. Stable bilateral lower lung predominant airspa ce opacities. Pulmonary vascular congestion is seen. No evidence of pleural effusion or pneumothorax. IMPRESSION: Cardiomegaly and airspace opacities with pulmonary vascular prominence compatible with pulmonary josefa a with or without superimposed aspiration/pneumonia. Findings are essentially unchanged from prior ex am. ACT 112: Negative or not required by law. Electronically signed by: Gee Zavala M.D. 11/06/2023 12:44 PM
[2023-11-06 12:47] LABS: Albumin Globulin Ratio 1.5 (0.9-2); Albumin Level 3.7 gm/dl (3.4-5.0); BUN Creatinine Ratio 18.6 (10-20); Bilirubin,Total 0.9 mg/dl (0.2-1.0); Calcium 7.9 mg/dl (8.6-10.3); Est GFR (African American) 37.7 ml/min; Est GFR (Non-African American) 32.5 ml/min; Globulin 2.4 gm/dl (2.5-4.0); Magnesium 2.4 mg/dl (1.7-2.4); Phosphorus 2.8 mg/dl (2.5-4.9); Potassium 5.7 mmol/L (3.5-5.1); Total Protein 6.1 gm/dl (6.0-8.3)
--- NOTE | 2023-11-06 13:42 | Procedure Note ---
Procedure Note Date of Service November 06, 2023 Note Procedure date: Noted above Procedure: Central venous access Pre-procedure indication: Loss of pacer capture, possible need for vasoactive medication administration, access for possible transvenous pacer Post-procedure Diagnosis: same as above Prior to Procedure: Informed Consent: The risks, benefits, indications, potential complications, and alternatives were explained to the patient and informed consent obtained verbally given acute hypotension after loss of capture. Attending Staff: Kerri Anaya DO Resident/APC: Not applicable Skin Prep: Chlorhexidine Anesthesia: 4 mL 1% lidocaine without epinephrine The identity of the patient was confirmed and a bedside time out was performed. Description of Procedure: After sterile prep and sterile drape utilizing standard sterile technique the superficial skin of the right internal jugular area was anesthetized. The target vessel was identified and entered with an 18- gauge needle. Dark venous blood return was noted. A guidewire was inserted through the needle and into the vessel. The needle was withdrawn and a skin neeta was made. A tissue dilator was advanced via Seldinger technique and removed. A double lumen catheter was inserted via Seldinger technique and the guidewire removed. All ports dayron and flushed easily. A Biopatch was placed, and the catheter was secured via silk suture. A sterile dressing was then applied. Complications: None Estimated blood loss: Trace Patient tolerated the procedure well. Procedure Date: Noted Above Procedure: Procedural Ultrasound Indication: Central venous access Attending: Kerri Anaya DO Resident/Physician Eyeglass Lens Generator: Not applicable Artery visualized: Yes Vein visualized: Yes Compressible Vein: Yes Vein patent: Yes Guidewire or Short Catheter seen in vein prior to dilation: Yes Line confirmed in Vein with ultrasound: Yes Lung Sliding on side of attempt (if applicable): NA If no lung sliding or not obtained has CXR been ordered: Yes Impression: Successful central venous access placement Images obtained are saved for permanent record Coding CPT Codes Tubes, Drains, and Vasc Access - Tubes, Drains, and Vasc Access: [id number] Insertion Of Non-tunneled Catheter Age 5 Yrs> ([id number]) Tubes, Drains, and Vasc Access - Tubes, Drains, and Vasc Access: [id number] Ultrasound Guidance For Vascular ([id number]) [facility] [place] Procedure Codes (Charges) Tubes, Drains, and Vasc Access Procedure 1: Tubes, Drains, and Vasc Access: [id number] Insertion Of Non-tunneled Catheter Age 5 Yrs> Procedure 2: Tubes, Drains, and Vasc Access: [id number] Ultrasound Guidance For Vascular
--- NOTE | 2023-11-06 13:48 | Critical Care Progress Note ---
Date of Service November 06, 2023 Assessment & Plan (1) Pericardial effusion with cardiac tamponade: Plan: Reason Critically Ill: 87-year-old female with loss of pacemaker capture with recent history of pericardial tamponade status post pericardial effusion status post pacemaker lead revision status post pacemaker malfunction PLAN: CV: History of CHF History of atrial fibrillation on amiodarone Complete heart block status post pacemaker placement: Loss of capture -Cardiology has optimized pacemaker settings that if we have additional loss of capture she may require vasoactive medication administration, transcutaneous pacing, additional transvenous pacemaker placement Pericardial tamponade status post drain placement: Resolved -Per report from cardiology bedside ultrasound performed today did not demonstrate pericardial tamponade Fluids/Renal: Acute kidney injury on chronic kidney disease stage III: -Reviewed nephrology notes -Now that patient has improved blood pressure there may be ability to administer Lasix ID: No indication for anti-infectives GI/Nutrition: N.p.o. after midnight Heme: Acute blood loss anemia on chronic anemia - s/p 1 unit of pRBCs: Initial packed red blood cell received approximately 50 mL was not entirely administered -cold antibody present on repeat screening DVT prophylaxis: SCDs as chemical prophylaxis is contraindicated -Deferred to cardiology with regards to restarting chemoprophylaxis Endocrine: ICU hyperglycemia protocol Vascular access: Right internal jugular Cordis placed 11/05 Code Status: DNR in the event of cardiac arrest Disposition: ICU (2) Malfunction of electrode lead of cardiac pacemaker: (3) Chronic kidney disease with active medical management without dialysis, stage 2 (mild): (4) Acute kidney injury superimposed on CKD: (5) Misadventure during medical care: Admission and Anticipated Discharge Date Admission Date: October 25, 2023 Supervising Physician Co-Signing Physician Notes I have personally spent 40 minutes of critical care time in the direct management of this patient. This is a life/limb threatening event. This includes time spent evaluating patient, direct bedside care, chart review, placing orders, interpretation of diagnostic studies, discussion with consultants, patient, and/or family members regarding treatment decisions, as well as other required patient management activities. This time is exclusive of all separately billable procedures, and teaching time and separate from and in addition to any other critical care service time. Subjective Patient experienced loss of pacemaker capture and hypotension was transferred to the ICU. Working with cardiology at bedside who ED interrogated and evaluated and adjusted pacer settings I urgently placed a double lumen catheter to allow for possible dopamine administration as well as transvenous pacing should that be required. Patient was verbally consented given urgency of the situation. Physical Exam Physical Exam: General: Alert. nontoxic. Skin: Warm, dry, Head: Atraumatic Ears, nose, mouth and throat: airway patent Cardiovascular: Complete heart block, bradycardia noted on bedside monitor, decreased peripheral perfusion Respiratory: no respiratory distress Gastrointestinal: Non distended Musculoskeletal: No deformity, 3+ pitting edema peripherally Results & Data Results & Data Vital Signs (Past 12 Hours) Vital Signs Temp Pulse Pulse Pulse Resp BP BP 11/06/23 12:30 46 L 28 H 108/53 L 11/06/23 11:47 36.5 C 61 22 105/62 11/06/23 08:33 36.6 C 101 H 20 11/06/23 07:41 11/06/23 04:19 96 H 11/06/23 03:43 36.5 C 97 H 18 107/76 BP Pulse Ox O2 Del Method O2 Flow Rate 11/06/23 12:30 91 Oxymask 10 11/06/23 11:47 105/62 90 Nasal Cannula 6.0 11/06/23 08:33 95/66 L 92 Nasal Cannula 4.0 11/06/23 07:41 Nasal Cannula 4 11/06/23 04:19 11/06/23 03:43 95 Nasal Cannula 4.0 Critical Care Results & Data Vital Signs (Past 12 Hours) Vital Signs Temp Pulse Pulse Pulse Resp BP BP 11/06/23 13:30 116/60 11/06/23 13:30 0 L 30 H 11/06/23 13:24 0 L 32 H 11/06/23 13:24 107/61 11/06/23 13:15 0 L 31 H 11/06/23 13:12 11/06/23 13:12 36.6 C 40 L 24 11/06/23 13:12 96 H 11/06/23 13:01 84/65 L 11/06/23 13:01 0 L 34 H 11/06/23 13:00 0 L 28 H 11/06/23 12:30 46 L 28 H 108/53 L 11/06/23 11:47 36.5 C 61 22 11/06/23 08:33 36.6 C 101 H 20 11/06/23 07:41 11/06/23 04:19 96 H 11/06/23 03:43 36.5 C 97 H 18 BP BP Pulse Ox O2 Del Method O2 Flow Rate 11/06/23 13:30 11/06/23 13:30 96 11/06/23 13:24 91 11/06/23 13:24 11/06/23 13:15 92 11/06/23 13:12 Oxymask 10 11/06/23 13:12 90 Oxymask 10 11/06/23 13:12 11/06/23 13:01 11/06/23 13:01 94 11/06/23 13:00 86 L 11/06/23 12:30 91 Oxymask 10 11/06/23 11:47 105/62 105/62 90 Nasal Cannula 6.0 11/06/23 08:33 95/66 L 92 Nasal Cannula 4.0 11/06/23 07:41 Nasal Cannula 4 11/06/23 04:19 11/06/23 03:43 107/76 95 Nasal Cannula 4.0 Lab & Micro Results (Past 24 Hours) RBC 3.29 M/uL (4.20-5.40) L 11/06/23 WBC 7.35 K/ul (4.8-10.8) 11/06/23 Hgb 8.7 g/dl (12.0-16.0) L 11/06/23 Hct 29.2 % (37.0-47.0) L 11/06/23 MCV 88.8 fL (80.0-100.0) 11/06/23 MCH 26.4 pg (25.0-34.0) 11/06/23 MCHC 29.8 g/dL (32.0-36.0) L 11/06/23 RDW Standard Deviation 52.2 fL (36.4-46.3) H 11/06/23 RDW Coefficient of Variation 19.3 % (11.5-14.5) H 11/06/23 Plt Count 149 K/uL (130-400) 11/06/23 MPV 9.7 fL (9.4-12.4) 11/06/23 Nucleated Red Blood Cells % (auto) 1.0 % 11/05 Nucleated RBC Absolute Count (auto) 0.07 K/uL (0.00-0.12) 0 11/06/23 Neutrophils (%) (Auto) 80.4 % 11/06/23 Lymphocytes (%) (Auto) 5.7 % 11/06/23 Monocytes # (Auto) 0.90 K/uL (0.11-0.59) H 11/06/23 Eosinophils # (Auto) 0.00 K/uL (0.00-0.50) 11/06/23 Immature Granulocyte % (Auto) 1.4 % 11/06/23 Neutrophils # (Auto) 5.91 K/uL (1.40-6.50) 11/06/23 Lymphocytes # (Auto) 0.42 K/uL (1.20-3.40) L 11/06/23 Monocytes # (Auto) 0.90 K/uL (0.11-0.59) H 11/06/23 Eosinophils # (Auto) 0.00 K/uL (0.00-0.50) 11/06/23 Basophils # (Auto) 0.02 K/uL (0.00-0.20) 11/06/23 Immature Granulocyte # (Auto) 0.10 K/uL (0.01-0.20) 4 Polychromasia 1+ 11/06/23 Hypochromasia Present 11/06/23 Anisocytosis Present 11/06/23 Tear Drop Cells 1+ 11/06/23 Na 131 mmol/L (136-145) L 11/06/23 K 5.7 mmol/L (3.5-5.1) H 11/06/23 Cl 105 mmol/L (98-107) 11/06/23 CO2 20 mmol/L (21-32) L 11/06/23 Anion Gap 6 (3-11) 11/06/23 BUN 27 mg/dl (6-23) H 11/06/23 Creatinine 1.45 mg/dl (0.6-1.2) H 11/06/23 Estimated GFR ( Amer) 37.7 ml/min 11/06/23 Estimated GFR (Non-Af Amer) 32.5 ml/min 11/06/23 BUN/Creatinine Ratio 18.6 (10-20) 11/06/23 Glu 201 mg/dl (70-99(Fasting)) H 11/06/23 Ca 7.9 mg/dl (8.6-10.3) L 11/06/23 Phosphorus Level 2.8 mg/dl (2.5-4.9) 11/06/23 Total Bilirubin 0.9 mg/dl (0.2-1.0) 11/06/23 AST 35 U/L (13-39) 11/06/23 ALT 32 U/L (7-52) 11/06/23 Alkaline Phosphatase 124 U/L (34-104) H 11/06/23 TP 6.1 gm/dl (6.0-8.3) 11/06/23 Albumin 3.7 gm/dl (3.4-5.0) 11/06/23 Globulin 2.4 gm/dl (2.5-4.0) L 11/06/23 Albumin/Globulin Ratio 1.5 (0.9-2) 11/06/23 Mg 2.4 mg/dl (1.7-2.4) 11/06/23 12:17 Calcium Level 7.9 mg/dl (8.6-10.3) L 11/06/23 12:17 Arterial Blood pH 7.21 (7.35-7.45) L 11/06/23 12:17 Arterial Blood Partial Pressure CO2 50 mmHg (35-46) H 11/06/23 12:17 Arterial Blood Partial Pressure O2 63 mmHg (80-95) L 11/06/23 1 2:17 Arterial Blood HCO3 20 mmol/L (19-24) 11/06/23 12:17 Arterial Blood Base Excess -7.6 mEq/L (-9-1.8) 11/06/23 12:17 Arterial Blood Oxygen Saturation 91.5 % (90-95) 11/06/23 12:17 Blood Gas Oxygen Given 10L 11/06/23 12:17 Cash Test Pos (Pos) 11/06/23 12:17 Diagnostic Findings (Past 24 Hours) Chest X-Ray 11/05/23 16:20 XR chest 1V portable CLINICAL HISTORY: Cough. COMPARISON STUDY: Chest CT April 07, 2023. Chest radiograph November 04, 2023. FINDINGS: There is no pneumothorax. Small to moderate left and small right pleural effusions are again noted. Interstitial thickening and bilateral opacities have progressed. Enlargement of the cardiac silhouette is similar to prior exam. Left subclavian pacer remains in place. IMPRESSION: 1. Progression of interstitial thickening and bilateral alveolar opacities. The findings favor pulmonary edema. Pneumonia could appear similar. 2. Stable enlargement of the cardiac silhouette. 3. Small to moderate left and small right pleural effusions. ACT 112: Negative or not required by law. Electronically signed by: Gene Youssef M.D. 11/05/2023 5:17 PM Chest X-Ray 11/06/23 11:58 XR chest 1V portable CLINICAL HISTORY: Hypoxia TECHNIQUE: Single frontal radiograph of the chest was obtained. Comparison: Comparison is made to chest radiograph 11/05/2023 FINDINGS: An implanted pacemaker is seen. Cardiomegaly is noted. Stable bilateral lower lung predominant airspace opacities. Pulmonary vascular congestion is seen. No evidence of pleural effusion or pneumothorax. IMPRESSION: Cardiomegaly and airspace opacities with pulmonary vascular prominence compatible with pulmonary edema with or without superimposed aspiration/pneumonia. Findings are essentially unchanged from prior exam. ACT 112: Negative or not required by law. Electronically signed by: Gee Zavala M.D. 11/06/2023 12:44 PM I & O Totals 24 Hours 11/05/23 11/06/23 11/07/23 06:59 06:59 06:59 Intake Total 993 / 993 750 / 750 Output Total 447 / 447 360 / 360 Balance 546 / 546 390 / 390 Cumulative 10/25/23 08:57 thru 11/06/23 08:35 Intake Total 85680.5417 Output Total 6405 Balance 9344.5417 RT Ventilator Mngmt (Last Documented) Ventilator Ordered Settings Respiratory Rate 30 11/06/23 13:30 Ventilator - PT Measurements Respiratory Rate 30 Coding Level of Care Code 58633 CRITICAL CARE 1ST 30-74M Diagnoses Pericardial effusion with cardiac tamponade I31.39; I31.4 Malfunction of electrode lead of cardiac pacemaker T82.198A Chronic kidney disease with active medical management without dialysis, stage 2 (mild) N18.2 Acute kidney injury superimposed on CKD N17.9; N18.9 Misadventure during medical care Y69
[2023-11-06] MEDS: DOPamine 400MG / 250ML D5W IV ONE (13:50)
--- NOTE | 2023-11-06 13:59 | XRay Report ---
XR chest 1V portable CLINICAL HISTORY: Right IJ central line placement TECHNIQUE: Single frontal radiograph of the chest was obtained. Comparison: Comparison is made to chest radiograph 11/06/2023 FINDINGS: A right sided central line is not clearly seen. Stable pacemaker. Cardiomegaly is noted. The aortic a rch is calcified. Stable airspace opacities and pulmonary vascular prominence. No definite pleural ef fusion or pneumothorax. IMPRESSION: No right IJ line is clearly seen. Cardiomegaly, airspace opacities, and pulmonary vascular prominence are unchanged. ACT 112: Negative or not required by law. Electronically signed by: Gee Zavala M.D. 11/06/2023 1:56 PM
[2023-11-06] MEDS ORDERED: STAT IV Infusion **Titration per Protocol STA (14:04)
[2023-11-06] MEDS: DOPamine / D5W 400 MG/250 ML BAG IV SCH (14:21)
--- NOTE | 2023-11-06 15:37 | Cardiology Consultation ---
Date of Consultation November 06, 2023 Assessment & Plan (1) Malfunction of electrode lead of cardiac pacemaker: (2) Bradycardia: (3) Hypotension: (4) Heart failure with mid-range ejection fraction: Plan 87-year-old woman with complex cardiac history including recent cardiac piedra ponade and variable thresholds for ventricular pacemaker lead resulting in intermittent noncapture. This morning she developed complete noncapture, became bradycardic and hypotensive, and demonstrated respiratory distress secondary to worsening congestive heart failure. As noted, echo showed no recurrence of recent pericardial effusion, central line placed by manufacturing shift supervisor, dopamine infusion, pacemaker reprogramming (maximal ventricular output) resulted in appropriate electronic ventricular pacing at 80 bpm. Mode was changed to VVI to minimize distractions from atrial pacing spikes (which are confusing in urgent situation while trying to monitor appropriate pacemaker capture). Patient will remain on dopamine low-dose and receive IV diuretics to address heart failure. She is on amiodarone, presumably for prior paroxysmal atrial fibrillation, value of maintaining sinus rhythm versus medication effects on pacing threshold may need to be considered. Case discussed with Dr. Felipe, will inform Dr. Fried as well so that further adjustments in pacemaker parameters and/or lead placement may be considered. If patient develops noncapture on maximal voltage, would need to place transvenous pacemaker via central access right internal jugular port. Would would only place venous pacer if needed urgently rather than placing it prophylactically, given her recent cardiac tamponade. History of Present Illness Reason for Consultation: Pacemaker failure Requesting Physician: Rosy Connelly DO Attending Physician: Rosy Connelly, DO History of Present Illness 87-year-old woman with history of CAD (MT with stenting 1998), ischemic cardiomyopathy (EF 30-35%), paroxysmal atrial fibrillation, status post dual- chamber Medtronic pacemaker 1999 (chronic ventricular lead threshold issues since at least 2018), who was admitted 10/25/2023, underwent device change-out with right ventricular lead placement 11/01/2023 complicated by pericardial effusion for which the patient underwent pericardiocentesis, additional at right ventricular lead repositioning 11/03/2023, decompensated this morning with abrupt loss of pacemaker capture and development of congestive heart failure/hypotension. Urgent echocardiogram demonstrated only trace pericardial effusion (not hemodynamically significant). Patient was transferred to intensive care unit, placed on a dopamine infusion, right internal jugular central line placed by manufacturing shift supervisor (Dr. Anaya), pacemaker reprogrammed for maximal output (8 V, with threshold 5.5 V) with appropriate capture and resolution of hypotension. Patient did have significant dyspnea and respiratory distress with evidence of pulmonary edema on chest x-ray. She received IV diuretics and is on low-dose dopamine infusion. She denied chest pain at any time but did have significant dyspnea, fatigue, and lightheadedness. Allergies Allergy/AdvReac Type Severity Reaction Status Date / Time Penicillins Allergy Intermediate Hives; Verified 10/25/23 11:02 SYNCOPE heparin AdvReac Severe Thrombocytopenia; Verified 10/25/23 11:02 NEUTROPENIA Home Medications Medication Instructions Recorded Confirmed Type ezetimibe 10 mg-simvastatin 40 mg 1 tab PO PM ##0 09/19/06 10/25/23 History tablet (Vytorin) nitroglycerin 0.4 mg sublingual 0.4 mg sublingual UD PRN Chest 04/05/13 10/25/23 History tablet (Nitrostat) Pain #0 BTLS allopurinol 300 mg tablet 300 mg PO QAM ##90 02/13/17 10/25/23 History aspirin 81 mg chewable tablet 81 mg PO QAM 04/22/21 10/25/23 History isosorbide mononitrate 30 mg 30 mg PO QAM 05/19/21 10/25/23 History tablet,extended release 24 hr alendronate 70 mg tablet (Fosamax) 70 mg PO WK 05/03/22 10/25/23 History acetaminophen 500 mg tablet 500 mg PO QID PRN Pain 11/10/22 10/25/23 History (Tylenol Extra Strength) empagliflozin 10 mg tablet 10 mg PO DAILY #90 tabs 05/13/23 10/25/23 Rx (Jardiance) metoprolol succinate 50 mg 50 mg PO QAM #90 tabs 08/18/23 10/25/23 Rx tablet,extended release 24 hr amiodarone 200 mg tablet 200 mg PO BID #180 tabs 09/13/23 10/25/23 Rx spironolactone 25 mg tablet 25 mg PO DAILY #90 tabs 10/04/23 10/25/23 Rx apixaban 2.5 mg tablet 2.5 mg PO BID 10/21/23 10/25/23 History Patient History Medical History Oliguria Syncope and collapse Non-ST elevation MT (NSTEMI) Loose stools Hx of pancreatitis Peripheral vascular disease Osteopenia 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, "treated" Hypercholesterolemia Paroxysmal atrial fibrillation follows w/Dr Springer CAD (coronary artery disease) stent x1 (1998) History of pelvic mass Chronic kidney disease, stage 3 Gout Hearing deficit bilateral hearing aids Hypertension Hyperlipidemia Pacemaker Medtronic, last checked 07/2022 Surgical History S/P left inguinal hernia repair (11/18/22) Open Left Inguinal Hernia Repair with Mesh(Left) - Je Quijano, Hx laparoscopic cholecystectomy (11/18/22) Open Left Inguinal Hernia Repair with Mesh(Left) - Je Quijano, S/P cardiac pacemaker procedure S/P ORIF (open reduction internal fixation) fracture right hip S/P trigger finger release History of cochlear implant since removed History of herniorrhaphy Open RIH repair with mesh 08-26-2016 Dr. Quijano History of cholecystectomy History of cataract surgery b/l History of heart artery stent 1999- x 1 [place] [facility] [place] Family/Other Hearing loss Father Heart disease Mother Cancer type not documented on new patient form Other No family history of adverse response to anesthesia No family history of bleeding disorder Denies family history of Ovarian cancer Chronic kidney disease Breast cancer Colorectal cancer Social History Smoking Status: Former smoker Age Started Using Tobacco: 43; Age Quit Using Tobacco: 63; packs per day: 0.5; Cigarettes Per Day: quit 1998; Second Hand Exposure: Yes (hx); Do You Dip or Chew Tobacco: No; Hx Alcohol Use: Yes Alcohol type: wine Alcohol Intake Frequency: Monthly or Less Hx Substance Use: No Preferred Language: Serbian Communication Ability: Effective Visual Impairment: No Limitations Infant Nanny Required: No Beliefs That Will Affect Care: None marital status: / Current Living Situation: Family Current Living Situation Comment: sons How many Children do You have: 5 Feels Safe at Home: Yes Diet: regular during the past year weight has: decreased > 10 lbs Assistive Devices: Cane and Walker Physical Exam Physical Exam: Thin, elderly white female initially in significant distress. BP markedly hypotensive initially (70-80 mmHg systolic), more recently 113/54 mmHg. Pulse in the 30-40 bpm range initially, now 80 bpm and regular (paced). Respirations 30 and moderately labored. Skin: no generalized lesions. HEENT: unremarkable. Neck: JVP at the angle of the jaw or above 90 degrees, no obvious carotid bruits. Lungs: Diffuse crackles to both apices with some rhonchi and occasional wheeze. Decreased breath sounds overall. Moderate accessory muscle use. Cardiac: regular rhythm currently, heart sounds obscured by lung sounds, no obvious murmur on difficult exam. Abdomen: benign. Extremities: Left upper extremity edematous, left brachial pulse palpable even during bradycardia. Neurologic: Answers simple questions appropriately, grossly nonfocal. Results & Data Laboratory Results Sodium 131, potassium 5.7, BUN 27, creatinine 1.45. Hemoglobin 8.7. Diagnostic Findings Echocardiogram showed mildly dilated left ventricle with moderately reduced systolic function (EF 35 to 40%) with apical and septal akinesis, severely dilated left atrium, moderate size left pleural effusion, only trace posterior pericardial effusion was seen (not hemodynamically significant). Compared with 11/03/2023 study, no significant change PG Care Time/CCT Total # of Minutes Spent Total Time Spent with Patient: 120 minutes spent, including critical care time at the bedside. Coding Level of Care Code 65425 INT INP/OBS CARE 3/75MIN Diagnoses Malfunction of electrode lead of cardiac pacemaker T82.198A Bradycardia R00.1 Hypotension I95.9 Heart failure with mid-range ejection fraction I50.22
--- NOTE | 2023-11-06 15:58 | Hospitalist Progress Note ---
Date of Service November 06, 2023 Assessment & Plan (1) Acute kidney injury: (2) Chronic kidney disease with active medical management without dialysis, stage 2 (mild): (3) Hyperkalemia: (4) Pacemaker malfunction: (5) CAD (coronary artery disease): (6) Paroxysmal atrial fibrillation: Plan Pt is a 87 yo female with a past medical history of pacemaker for Mobitz type 2 block, previous syncope with ventricular tachycardia, CKD stage 2, CHF, paroxysmal afib, and HTN who presents to the hospital on 10/24 for mechanical fall and admitted for PT/OT recs and for pacemaker malfunction. #Mechanical fall with walker - CT head negative - CTAP significant for S3 fracture - Fall precautions - PT/OT; recommend rehab #Pacemaker Malfunction - presented with pacemaker loss of capture, pacing output maximized with subsequent capture, paced in the 60s overnight - Pacemaker revision performed on 11/01/23. Pt w/pericardial effusion requiring pericardicentesis and drain placement occurred; pt in ICU with sleeve baster consult - Pacemaker revision 11/03/23 with successful lead placement and capture. - Continue management per sleeve baster, account executive agribusiness #IGNACIO in patient with CKD, resolved - Likely secondary to volume contraction, potentially also exacerbated by reduced cardiac output in the setting of pacemaker malfunction. - Nephrology consulted, appreciate recs: - Encourage PO fluids - Jardiance, spironolactone held in the setting of IGNACIO okay restart at discharge #Hyperkalemia - Improved, today was 5.2 - Lokelma discontinued - Low K diet - Consider lowering dose of spironolactone at discharge #Anemia, chronic: - Hgb 9.0 on admission, then 7.1 (10/26), 7.6 - IV Venofer x4 days, day 4 of 4 today - H&H checks, transfuse for Hgb <7 or if symptomatic - stool occult positive, recommend outpatient workup/colonoscopy since hgb stable here VTE ppx: Eliquis Admission and Anticipated Discharge Date Admission Date: October 25, 2023 Supervising Physician Co-Signing Physician Notes I personally examined the patient and verified clark points of history and exam, discussed case, and agree with decision making and plan documented by Dr. Kelley. Was present at bedside during evaluation for pacemaker loss of capture. Patient with increased oxygen demand up to 10 L, pulmonary edema on x-ray, heart rate in 40s, with hypotension. Stat echo performed at bedside without evidence of return of tamponade, trace effusion present. Attempted repositioning of patient to capture lead which was unsuccessful. Patient taken to ICU, placed on low-dose dopamine. Pacemaker interrogated and adjusted to maximum voltage with resultant capture and heart rate now in the 80s. Patient received furosemide 40 mg IV today, urine output 0.3 mL/kg/hr, increase of creatinine observed with diuresis. Updated patient's son Alonso at bedside ([phone]); he would like to be updated when plans are made for patient to return to procedure lab for pacemaker lead revision. Subjective Patient seen and evaluated at bedside this morning. No acute events overnight. This am pt was in good spirits though with some shortness of breath. Had no acute complaints. Prior to completion of this note, I was called to the patient's bedside as she was profoundly hypoxic in the 70s on 4L via NC, subsequently in the 80s on 6L NC. Large bore NC, ultimately non rebreather mask at 10 and later 15L required to achieve oxygenation in the 90s. She was also noted to be profoundly bradycardic in the 30s to 40s and hypotensive with non-capture of her pacemaker. Cardiology was called urgently to bedside and life science technician performed stat echocardiogram to rule out re-occurrence of pericardial effusion/tamponade. CXR was performed and demonstrated pulmonary edema, per my read. EKG performed confirmed near non-existent capture of pacemaker. External pacemaker pads were applied and ultimately did not have to be used. She was emergently transferred to the ICU. At this stage broad laboratory work was drawn, IJ access was obtained due to poor vascular access and [employer] teles[employer] representative was urgently contacted. When [employer] arrived they were able to increase voltage on pacemaker with good capture. This case was discussed with electrophysiology by cardiology with plan to review case and determine next steps tomorrow. Patient will remain ICU status and hospital team will follow. Review of Systems Review of Systems: reviewed, per HPI Physical Exam Physical Exam: Constitutional: Alert, interactive, NAD, pepe in place draining minimal urine HEENT: NCAT, no conjunctival injection CV: paced rate 80, extremities well-perfused, no LE edema Resp: no increased work of breathing MSK: no gross deformities appreciated Skin: femoral central and a-line in place, pepe in place, pericardial drain in place. widespread ecchymosis in areas of line placement Neuro: alert, no focal neurologic deficit appreciated Results & Data Results & Data Vital Signs (Past 12 Hours) Vital Signs Temp Pulse Pulse Pulse Resp BP BP 11/06/23 15:30 80 31 H 11/06/23 15:21 113/54 L 11/06/23 15:21 81 31 H 11/06/23 15:15 82 29 H 11/06/23 15:15 116/55 L 11/06/23 15:00 84 29 H 11/06/23 15:00 104/53 L 11/06/23 14:45 88/60 L 11/06/23 14:45 83 31 H 11/06/23 14:30 85 25 H 11/06/23 14:30 104/53 L 11/06/23 14:15 98/59 L 11/06/23 14:15 83 21 11/06/23 14:00 80 35 H 11/06/23 14:00 101/51 L 11/06/23 13:45 122/60 11/06/23 13:45 81 35 H 11/06/23 13:30 116/60 11/06/23 13:30 0 L 30 H 11/06/23 13:24 0 L 32 H 11/06/23 13:24 107/61 11/06/23 13:15 0 L 31 H 11/06/23 13:12 11/06/23 13:12 11/06/23 13:12 36.6 C 40 L 24 11/06/23 13:12 96 H 11/06/23 13:01 84/65 L 11/06/23 13:01 0 L 34 H 11/06/23 13:00 0 L 28 H 11/06/23 12:30 46 L 28 H 108/53 L 11/06/23 11:47 36.5 C 61 22 11/06/23 08:33 36.6 C 101 H 20 11/06/23 07:41 11/06/23 04:19 96 H BP BP Pulse Ox Pulse Ox O2 Del Method O2 Del Method O2 Flow Rate 11/06/23 15:30 88 L 11/06/23 15:21 11/06/23 15:21 85 L 11/06/23 15:15 93 11/06/23 15:15 11/06/23 15:00 89 L 11/06/23 15:00 11/06/23 14:45 11/06/23 14:45 11/06/23 14:30 88 L 11/06/23 14:30 11/06/23 14:15 11/06/23 14:15 90 11/06/23 14:00 91 11/06/23 14:00 11/06/23 13:45 11/06/23 13:45 96 11/06/23 13:30 11/06/23 13:30 96 11/06/23 13:24 91 11/06/23 13:24 11/06/23 13:15 92 11/06/23 13:12 90 Oxymask 11/06/23 13:12 Oxymask 10 11/06/23 13:12 90 Oxymask 10 11/06/23 13:12 11/06/23 13:01 11/06/23 13:01 94 11/06/23 13:00 86 L 11/06/23 12:30 91 Oxymask 10 11/06/23 11:47 105/62 105/62 90 Nasal Cannula 6.0 11/06/23 08:33 95/66 L 92 Nasal Cannula 4.0 11/06/23 07:41 Nasal Cannula 4 11/06/23 04:19 O2 Flow Rate 11/06/23 15:30 11/06/23 15:21 11/06/23 15:21 11/06/23 15:15 11/06/23 15:15 11/06/23 15:00 11/06/23 15:00 11/06/23 14:45 11/06/23 14:45 11/06/23 14:30 11/06/23 14:30 11/06/23 14:15 11/06/23 14:15 11/06/23 14:00 11/06/23 14:00 11/06/23 13:45 11/06/23 13:45 11/06/23 13:30 11/06/23 13:30 11/06/23 13:24 11/06/23 13:24 11/06/23 13:15 11/06/23 13:12 15 11/06/23 13:12 11/06/23 13:12 11/06/23 13:12 11/06/23 13:01 11/06/23 13:01 11/06/23 13:00 11/06/23 12:30 11/06/23 11:47 11/06/23 08:33 11/06/23 07:41 11/06/23 04:19 Resident Activity Tracking Resident Involvement: Resident Care Provided Care Provided: Adult Hospital Medicine
--- NOTE | 2023-11-06 16:08 | XCELERA ---
[id number] \\[facility]\ISCV_PDF_Reports\[id number]___[id number].pdf
[2023-11-06] MEDS: ICU Protocol for HYPERglycemia SCH (16:21)
[2023-11-07 04:50] LABS: Basophils # (auto) 0.03 K/uL (0.00-0.20); Basophils % (auto) 0.3 %; Hematocrit (blood only) 28.1 % (37.0-47.0); Hemoglobin 8.8 g/dl (12.0-16.0); Immature Granulocytes % (auto) 3.1 %; Lymphocytes # (auto) 0.41 K/uL (1.20-3.40); Lymphocytes % (auto) 4.2 %; Mean Corpuscular Hgb Conc 31.3 g/dL (32.0-36.0); Mean Corpuscular Volume 89.5 fL (80.0-100.0); Mean Platelet Volume 10.8 fL (9.4-12.4); Monocytes # (auto) 1.27 K/uL (0.11-0.59); Monocytes % (auto) 13.1 %; Neutrophils # (auto) 7.72 K/uL (1.40-6.50); Neutrophils % (auto) 79.3 %; Nucleated RBC # (auto) 0.07 K/uL (0.00-0.12); Nucleated RBC % (auto) 0.7 %; Platelet Count 143 K/uL (130-400); RDW Coefficient of Variation 21.1 % (11.5-14.5); RDW Standard Deviation 52.1 fL (36.4-46.3); Red Blood Count 3.14 M/uL (4.20-5.40); White Blood Count 9.73 K/ul (4.8-10.8)
[2023-11-07 05:10] LABS: Albumin Globulin Ratio 1.5 (0.9-2); Albumin Level 3.4 gm/dl (3.4-5.0); BUN Creatinine Ratio 16.7 (10-20); Bilirubin,Total 1.3 mg/dl (0.2-1.0); Calcium 7.5 mg/dl (8.6-10.3); Est GFR (African American) 31.6 ml/min; Est GFR (Non-African American) 27.2 ml/min; Globulin 2.2 gm/dl (2.5-4.0); Magnesium 2.2 mg/dl (1.7-2.4); Phosphorus 2.8 mg/dl (2.5-4.9); Potassium 5.5 mmol/L (3.5-5.1); Total Protein 5.6 gm/dl (6.0-8.3)
[2023-11-07 05:49] LABS: Anisocytosis Present; Ovalocytes 1+; Pappenheimer Bodies 1+; Polychromasia 1+; Tear Drop Cells 1+
--- NOTE | 2023-11-07 07:12 | Hospitalist Progress Note ---
Date of Service November 07, 2023 Assessment & Plan (1) Acute kidney injury: (2) Chronic kidney disease with active medical management without dialysis, stage 2 (mild): (3) Hyperkalemia: (4) Pacemaker malfunction: (5) CAD (coronary artery disease): (6) Paroxysmal atrial fibrillation: Plan Pt is a 87 yo female with a past medical history of pacemaker for Mobitz type 2 block, previous syncope with ventricular tachycardia, CKD stage 2, CHF, paroxysmal afib, and HTN who presents to the hospital on 10/24 for mechanical fall and admitted for PT/OT recs and for pacemaker malfunction. 1) Mechanical fall with walker - CT head negative - CT-AP significant for S3 fracture - Fall precautions - PT/OT; recommend rehab 2) Pacemaker Malfunction - presented with pacemaker loss of capture, pacing output maximized with subsequent capture, paced in the 60s overnight - Pacemaker revision performed on 11/01/23. Pt w/pericardial effusion requiring pericardiocentesis and drain placement occurred; pt in ICU with landscaping supervisor consult - Pacemaker revision 11/03/23 with successful lead placement and capture. - Continue management per landscaping supervisor, book trimmer 3) IGNACIO in patient with CKD, resolved - Likely secondary to volume contraction, potentially also exacerbated by reduced cardiac output in the setting of pacemaker malfunction --> Cr 1.92 <-- 1.32 <-- 0.92 <-- 2.62 - Nephrology consulted, appreciate recs: - Encourage PO fluids - Jardiance, spironolactone held in the setting of IGNACIO okay restart at discharge 4) Hyperkalemia - Climbing again, today was 5.9 <-- 5.0 <-- 4.7 <-- 6.5 - Lokelma discontinued - Low K diet - Consider lowering dose of spironolactone at discharge 5) Anemia, chronic: - Hgb 8.8 (9.0 on admission) - IV Venofer x 4 days - H&H checks, transfuse for Hgb <7 or if symptomatic - stool occult positive, recommend outpatient workup/colonoscopy since hgb stable here Code status: DNR/DNI VTE ppx: Eliquis Admission and Anticipated Discharge Date Admission Date: October 25, 2023 Supervising Physician Co-Signing Physician Notes I personally examined the patient and verified all clark points of history and exam, discussed case, and agree with decision making with Dr Sanchez No meaningful HPI review of systems obtainable. Cardiology and intensive care input greatly appreciated. Vitals noted. Staring at the ceiling tries to talk a little bit nonsensically and reaches for the ceiling. Breathing unlabored, on high flow nasal cannula. Pacer malfunction, lead replacement , renal failure, pericardial effusion, deliriumsupportive care, ICU and cardiology management. Otherwise as above. Subjective Patient seen and evaluated at bedside this morning. No acute events overnight. This am pt was in good spirits though with some shortness of breath. Had no acute complaints. Prior to completion of this note, I was called to the patient's bedside as she was profoundly hypoxic in the 70s on 4L via NC, subsequently in the 80s on 6L NC. Large bore NC, ultimately non rebreather mask at 10 and later 15L required to achieve oxygenation in the 90s. She was also noted to be profoundly bradycardic in the 30s to 40s and hypotensive with non-capture of her pacemaker. Cardiology was called urgently to bedside and veterinary surgery technologist performed stat echocardiogram to rule out re-occurrence of pericardial effusion/tamponade. CXR was performed and demonstrated pulmonary edema, per my read. EKG performed confirmed near non-existent capture of pacemaker. External pacemaker pads were applied and ultimately did not have to be used. She was emergently transferred to the ICU. At this stage broad laboratory work was drawn, IJ access was obtained due to poor vascular access and [employer] inbound call center representative was urgently contacted. When [employer] arrived they were able to increase voltage on pacemaker with good capture. This case was discussed with electrophysiology by cardiology with plan to review case and determine next steps tomorrow. Patient will remain ICU status and hospital team will follow. Review of Systems Constitutional: no fever Respiratory: + dyspnea; no cough and no chest congest ion Cardiovascular: no chest pain and no palpitations Gastrointestinal: + nausea; no vomiting Genitourinary: no dysuria Neurologic: no tingling, no numbness and no confusion Physical Exam Constitutional: + ill appearing, + frail appearing, coop erative and comfortable; not in distress Respiratory: Auscultation: no diminished lung sounds Cardiovascular: Rate/Rhythm: regular rate and regular rhythm; not irregularly irregular Heart Sounds: no murmur Extremities: + calf tenderness (left side) Gastrointestinal (Abdomen): normal bowel sounds, soft, nontender, no hepatosplenomegaly Psychiatric: A+Ox3, euthymic affect Genitourinary: bladder normal to inspection; no CVA tenderness patient with Vyas catheter Results & Data Results & Data Vital Signs (Past 12 Hours) Vital Signs Temp Pulse Pulse Resp BP Pulse Ox Pulse Ox 11/07/23 06:00 62 25 H 124/69 94 11/07/23 05:30 62 23 92 11/07/23 05:00 72 29 H 113/66 93 11/07/23 04:30 62 29 H 94 11/07/23 04:28 62 28 H 96 11/07/23 04:00 37.1 C 65 34 H 108/57 L 91 11/07/23 03:30 80 31 H 92 11/07/23 03:00 80 29 H 119/63 94 11/07/23 02:30 79 31 H 93 11/07/23 02:30 80 96 11/07/23 02:00 68 19 104/55 L 98 11/07/23 01:30 80 22 100 11/07/23 01:00 73 24 102/56 L 100 11/07/23 00:30 80 22 98 11/07/23 00:00 36.4 C L 81 24 119/98 94 11/06/23 23:30 80 25 H 94 11/06/23 23:09 81 18 93 11/06/23 23:00 80 23 109/70 93 11/06/23 22:30 80 25 H 91 11/06/23 22:00 80 25 H 126/80 94 11/06/23 21:55 80 18 91 11/06/23 21:30 80 26 H 92 11/06/23 21:00 81 26 H 119/67 92 11/06/23 20:30 80 26 H 119/73 91 11/06/23 20:00 36.4 C L 86 24 109/71 91 11/06/23 20:00 11/06/23 20:00 91 11/06/23 19:30 89 26 H 92 O2 Del Method O2 Del Method O2 Flow Rate FiO2 11/07/23 06:00 BiPAP 80 11/07/23 05:30 BiPAP 80 11/07/23 05:00 BiPAP 80 11/07/23 04:30 BiPAP 80 11/07/23 04:28 80 11/07/23 04:00 High Flow Nasal Cannula 50 80 11/07/23 03:30 High Flow Nasal Cannula 50 80 11/07/23 03:00 High Flow Nasal Cannula 50 80 11/07/23 02:30 High Flow Nasal Cannula 50 80 11/07/23 02:30 High Flow Nasal Cannula 50 80 11/07/23 02:00 High Flow Nasal Cannula 50 80 11/07/23 01:30 High Flow Nasal Cannula 50 80 11/07/23 01:00 High Flow Nasal Cannula 50 80 11/07/23 00:30 High Flow Nasal Cannula 50 80 11/07/23 00:00 High Flow Nasal Cannula 50 80 11/06/23 23:30 High Flow Nasal Cannula 50 80 11/06/23 23:09 High Flow Nasal Cannula 50 80 11/06/23 23:00 High Flow Nasal Cannula 50 80 11/06/23 22:30 High Flow Nasal Cannula 50 80 11/06/23 22:00 High Flow Nasal Cannula 50 80 11/06/23 21:55 High Flow Nasal Cannula 50 80 11/06/23 21:30 BiPAP 80 11/06/23 21:00 BiPAP 80 11/06/23 20:30 BiPAP 80 11/06/23 20:00 BiPAP 80 11/06/23 20:00 BiPAP 80 11/06/23 20:00 BiPAP 11/06/23 19:30 BiPAP 80
--- NOTE | 2023-11-07 07:52 | Pulmonology Progress Note ---
Date of Service November 07, 2023 Assessment & Plan (1) Hypotension: (2) Pericardial effusion with cardiac tamponade: (3) Malfunction of electrode lead of cardiac pacemaker: (4) Chronic kidney disease with active medical management without dialysis, stage 2 (mild): (5) Acute kidney injury: (6) Ischemic cardiomyopathy: (7) Paroxysmal atrial fibrillation: (8) Transaminitis: (9) Acute respiratory failure with hypoxia: Plan Reason Critically Ill: 87-year-old female with loss of pacemaker capture with recent history of pericardial tamponade status post pericardial effusion status post pacemaker lead revision status post pacemaker malfunction PLAN: Neuro: CAM-ICU: Negative No acute issues right now CV: History of CHF History of atrial fibrillation on amiodarone Complete heart block status post pacemaker placement: Loss of capture -Cardiology has optimized pacemaker settings that if we have additional loss of capture she may require vasoactive medication administration, transcutaneous pacing, additional transvenous pacemaker placement Pericardial tamponade status post drain placement --> removed 11/04/2023 -Per report from cardiology bedside ultrasound performed today did not demonstrate pericardial tamponade Respiratory: --Acute hypoxic respiratory failure Likely secondary to CHF exacerbation Continue with oxygen to keep O2 saturation between 90-92% Fluids/Renal: Acute kidney injury on chronic kidney disease stage III: -Likely secondary to hypotensive episode -Continue to monitor -Nephrology on board --Hyperkalemia On spironolactone ID: No concern for any acute infection right now GI/Nutrition: -- Transaminitis Likely shock liver from hypotension Continue to trend Heme: --Acute on chronic blood loss anemia - s/p 2 unit of PRBCs 10/31/2022: Initial packed red blood cell received approximately 50 mL was not entirely administered -cold antibody present on repeat screening - monitor H&H Endocrine: ICU hyperglycemia protocol Code Status: DNR in the event of cardiac arrest --Prophylaxis VTE:IPC GI: None Lines:Right internal jugular Cordis placed 11/05 Diet: Cardiac Plan: In/out: -313, urine output 415, +9 L since coming to the hospital. Given the significant bilateral upper extremity swelling we will get a Doppler bilateral upper extremity. Monitor LFTs. Hold amiodarone for the time being given the elevated LFT For hypokalemia, hold spironolactone. Give Lokelma 10 3 times daily for 1 day Case was discussed with cardiology. They changed the setting of the pacemaker to dual-lead paced. Rate has been decreased to 60. I will try to turn the dopamine off. Repeat BMP, LFT as well as PT/INR and PTT later today Patient will benefit from flutter valve and Mucinex. I have personally spent 37 minutes of critical care time in the direct management of this patient. This is a life/limb threatening event. This includes time spent evaluating patient, direct bedside care, chart review, placing orders, interpretation of diagnostic studies, discussion with consultants, patient, and family members, as well as other required patient management activities. This time is exclusive of all separately billable procedures, and teaching time and separate from and in addition to any other critical care service time. Please note the above document was generated using voice recognition software. It may contain grammatical, syntax or spelling errors. Admission and Anticipated Discharge Date Admission Date: October 25, 2023 Subjective Patient seen and examined at bedside. No acute distress, no adverse events overnight She was already 5 dopamine at the time of examination, MAP was in the 70s. I went down to 2.5 There was purplish hue to bilateral lower extremities which is new compared to before. Denied any chest pain, no headache, no vomiting. Was nauseous yesterday. Review of Systems 2 Review of Systems: All systems reviewed & are unremarkable except as noted in Subjective Physical Exam 2 Physical Exam: Constitutional: No acute distress HEENT: EOMI, PERRLA, arcus senilis bilaterally Respiratory system: Decreased air entry bilaterally, no wheeze, mild rhonchi, positive crackles bilaterally CVS: S1-S2 positive, distant heart sounds Abdomen: Soft, nontender, nondistended, positive bowel sounds x4 Extremities: +2 pulses bilaterally radialis/+1 bilateral dorsalis pedis, no cyanosis, +1 edema bilateral lower extremity, +2 edema bilateral upper extremity, purplish hue to bilateral lower extremities, cold to touch Neuro: Awake alert oriented x3 Psych: Normal mood and affect G/U: Positive Vyas Skin: no rashes, warm and dry Lymphatic: no cervical or axillary lymphadenopathy Results & Data Results & Data Vital Signs (Past 12 Hours) Vital Signs Temp Pulse Pulse Resp BP Pulse Ox Pulse Ox 11/07/23 06:00 62 25 H 124/69 94 11/07/23 05:30 62 23 92 11/07/23 05:00 72 29 H 113/66 93 11/07/23 04:30 62 29 H 94 11/07/23 04:28 62 28 H 96 11/07/23 04:00 37.1 C 65 34 H 108/57 L 91 11/07/23 03:30 80 31 H 92 11/07/23 03:00 80 29 H 119/63 94 11/07/23 02:30 79 31 H 93 11/07/23 02:30 80 96 11/07/23 02:00 68 19 104/55 L 98 11/07/23 01:30 80 22 100 11/07/23 01:00 73 24 102/56 L 100 11/07/23 00:30 80 22 98 11/07/23 00:00 36.4 C L 81 24 119/98 94 11/06/23 23:30 80 25 H 94 11/06/23 23:09 81 18 93 11/06/23 23:00 80 23 109/70 93 11/06/23 22:30 80 25 H 91 11/06/23 22:00 80 25 H 126/80 94 11/06/23 21:55 80 18 91 11/06/23 21:30 80 26 H 92 11/06/23 21:00 81 26 H 119/67 92 11/06/23 20:30 80 26 H 119/73 91 11/06/23 20:00 36.4 C L 86 24 109/71 91 11/06/23 20:00 11/06/23 20:00 91 O2 Del Method O2 Del Method O2 Flow Rate FiO2 11/07/23 06:00 BiPAP 80 11/07/23 05:30 BiPAP 80 11/07/23 05:00 BiPAP 80 11/07/23 04:30 BiPAP 80 11/07/23 04:28 80 11/07/23 04:00 High Flow Nasal Cannula 50 80 11/07/23 03:30 High Flow Nasal Cannula 50 80 11/07/23 03:00 High Flow Nasal Cannula 50 80 11/07/23 02:30 High Flow Nasal Cannula 50 80 11/07/23 02:30 High Flow Nasal Cannula 50 80 11/07/23 02:00 High Flow Nasal Cannula 50 80 11/07/23 01:30 High Flow Nasal Cannula 50 80 11/07/23 01:00 High Flow Nasal Cannula 50 80 11/07/23 00:30 High Flow Nasal Cannula 50 80 11/07/23 00:00 High Flow Nasal Cannula 50 80 11/06/23 23:30 High Flow Nasal Cannula 50 80 11/06/23 23:09 High Flow Nasal Cannula 50 80 11/06/23 23:00 High Flow Nasal Cannula 50 80 11/06/23 22:30 High Flow Nasal Cannula 50 80 11/06/23 22:00 High Flow Nasal Cannula 50 80 11/06/23 21:55 High Flow Nasal Cannula 50 80 11/06/23 21:30 BiPAP 80 11/06/23 21:00 BiPAP 80 11/06/23 20:30 BiPAP 80 11/06/23 20:00 BiPAP 80 11/06/23 20:00 BiPAP 80 11/06/23 20:00 BiPAP Laboratory Results 11/07/23 04:00 11/07/23 04:00 PG Care Time/CCT Total # of Minutes Spent Total Time Spent with Patient: Total time spent is greater than 50% in coordination of care (as documented) at patient's floor/unit and/or counseling patient: Coding Level of Care Code 40091 CRITICAL CARE 1ST 30-74M Diagnoses Hypotension I95.9 Pericardial effusion with cardiac tamponade I31.39; I31.4 Malfunction of electrode lead of cardiac pacemaker T82.198A Chronic kidney disease with active medical management without dialysis, stage 2 (mild) N18.2 Acute kidney injury N17.9 Ischemic cardiomyopathy I25.5 Paroxysmal atrial fibrillation I48.0 Transaminitis R74.01 Acute respiratory failure with hypoxia J96.01
--- NOTE | 2023-11-07 09:56 | Cardiology Progress Note ---
Date of Service November 07, 2023 Assessment & Plan (1) Malfunction of electrode lead of cardiac pacemaker: (2) Pericardial effusion with cardiac tamponade: (3) Anticoagulant long-term use: Plan 1. Ventricular lead malfunction: Her chronic ventricular lead failed due to rising thresholds, her replacement ventricular lead appeared to be through the ventricular wall although it probably was not what caused the pericardial effusion (that probably occurred earlier with multiple pacing sites tested). Repositioning did not result in further pericardial bleeding and the drain was removed the following day. Follow-up echocardiography November 06, 2023 did not show a significant effusion. The measurements at the time of surgery were quite elevated in both atrial and ventricular lead, the reasons for these high thresholds remains unclear since the atrial lead has been in place for many years and subsequently that lead has much better thresholds and the impedance on these leads was unchanged and normal. The ventricular lead was working well on Tuesday, although still at somewhat high outputs the pacing output was reduced. 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 She was transferred back to the ICU, placed on pressors and the output was increased to maximum. It remained in unipolar configuration and it was programmed from DDD to VVI. She remained on pressors over night and this morning showed evidence of lack of capture, review of telemetry shows that this occurred sometime after midnight on the morning of November 07, 2023. I checked t hresholds today in unipolar and bipolar configuration on the ventricular lead, capture is around maximum output out of heart rate of 80 bpm however when reduced to 60 bpm the thresholds are acceptable, somewhat improved in unipolar configuration (essentially eliminating lead perforation as a cause) and on x-ray lead appears to be in the same position suggesting this is not a lead dislodgment. At 60 bpm the thresholds are acceptable consistent with some type of prolonged refractory.. The pacemaker was left at 60 bpm, DDD configuration (she does not tolerate ventricular only pacemaker very well historically) with the ventricle and unipolar configuration at full output. This appears to be at least in part of metabolic problem, probably in part hyperkalemia. 2. Pericardial effusion: Presumably due to perforation, I suspect due to multiple repositioning attempts to get reasonable numbers at the initial surgery. This appears to have resolved and the pericardial catheter has now been removed. There was no effusion on echocardiography 2 days after removal of the catheter. 3. Anticoagulation: I would hold off on anticoagulation, there is no reason to anticoagulate at this point since she has remained in sinus rhythm. We should restart it at some point but I would hold off for now. Admission and Anticipated Discharge Date Admission Date: October 25, 2023 Subjective She seems to be feeling well this morning, she denies shortness of breath and is sitting up partially in bed and appears comfortable. No chest discomfort or incisional discomfort. Physical Exam Physical Exam: Constitutional: Alert, cooperative and in no distress. Laying supine in bed. Neck: No jugular venous distention, carotid pulses are normal and equal bilaterally without bruits. Pulmonary: Bilateral crackles on auscultation. Cardiac: Regular rhythm with no murmur, gallop or rub. Abdomen: Soft, nontender with normal bowel sounds. Extremities: No edema. Neurologic: No focal findings. Skin: The device site on the left is healing well with minimal bleeding. The dressing on the right has been removed. Results & Data Vital Signs (Past 12 Hours) Vital Signs Temp Pulse Pulse Resp BP Pulse Ox O2 Del Method 11/07/23 07:43 60 39 H 89 L 11/07/23 06:00 62 25 H 124/69 94 BiPAP 11/07/23 05:30 62 23 92 BiPAP 11/07/23 05:00 72 29 H 113/66 93 BiPAP 11/07/23 04:30 62 29 H 94 BiPAP 11/07/23 04:28 62 28 H 96 11/07/23 04:00 37.1 C 65 34 H 108/57 L 91 High Flow Nasal Cannula 11/07/23 03:30 80 31 H 92 High Flow Nasal Cannula 11/07/23 03:00 80 29 H 119/63 94 High Flow Nasal Cannula 11/07/23 02:30 79 31 H 93 High Flow Nasal Cannula 11/07/23 02:30 80 96 High Flow Nasal Cannula 11/07/23 02:00 68 19 104/55 L 98 High Flow Nasal Cannula 11/07/23 01:30 80 22 100 High Flow Nasal Cannula 11/07/23 01:00 73 24 102/56 L 100 High Flow Nasal Cannula 11/07/23 00:30 80 22 98 High Flow Nasal Cannula 11/07/23 00:00 36.4 C L 81 24 119/98 94 High Flow Nasal Cannula 11/06/23 23:30 80 25 H 94 High Flow Nasal Cannula 11/06/23 23:09 81 18 93 High Flow Nasal Cannula 11/06/23 23:00 80 23 109/70 93 High Flow Nasal Cannula 11/06/23 22:30 80 25 H 91 High Flow Nasal Cannula 11/06/23 22:00 80 25 H 126/80 94 High Flow Nasal Cannula 11/06/23 21:55 80 18 91 High Flow Nasal Cannula O2 Flow Rate FiO2 11/07/23 07:43 80 11/07/23 06:00 80 11/07/23 05:30 80 11/07/23 05:00 80 11/07/23 04:30 80 11/07/23 04:28 80 11/07/23 04:00 50 80 11/07/23 03:30 50 80 11/07/23 03:00 50 80 11/07/23 02:30 50 80 11/07/23 02:30 50 80 11/07/23 02:00 50 80 11/07/23 01:30 50 80 11/07/23 01:00 50 80 11/07/23 00:30 50 80 11/07/23 00:00 50 80 11/06/23 23:30 50 80 11/06/23 23:09 50 80 11/06/23 23:00 50 80 11/06/23 22:30 50 80 11/06/23 22:00 50 80 11/06/23 21:55 50 80 Diagnostic Findings Cardiac Enzymes 11/06/23 11/07/23 Range/Units 12:17 04:00 AST 35 437 H (13-39) U/L CBC 11/06/23 11/07/23 Range/Units 12:17 04:00 WBC 7.35 9.73 (4.8-10.8) K/ul RBC 3.29 L 3.14 L (4.20-5.40) M/uL Hgb 8.7 L 8.8 L (12.0-16.0) g/dl Hct 29.2 L 28.1 L (37.0-47.0) % Plt Count 149 143 (130-400) K/uL Neut # (Auto) 5.91 7.72 H (1.40-6.50) K/uL Lymph # (Auto) 0.42 L 0.41 L (1.20-3.40) K/uL Callahan # (Auto) 0.90 H 1.27 H (0.11-0.59) K/uL Eos # (Auto) 0.00 0.00 (0.00-0.50) K/uL Baso # (Auto) 0.02 0.03 (0.00-0.20) K/uL Comprehensive Metabolic Panel 11/06/23 11/07/23 Range/Units 12:17 04:00 Sodium 131 L 134 L (136-145) mmol/L Potassium 5.7 H 5.5 H (3.5-5.1) mmol/L Chloride 105 107 (98-107) mmol/L Carbon Dioxide 20 L 20 L (21-32) mmol/L BUN 27 H 28 H (6-23) mg/dl Creatinine 1.45 H 1.68 H (0.6-1.2) mg/dl Glucose 201 H 123 H (70-99(Fasting)) mg/dl Calcium 7.9 L 7.5 L (8.6-10.3) mg/dl AST 35 437 H (13-39) U/L ALT 32 239 H (7-52) U/L Alkaline Phosphatase 124 H 135 H (34-104) U/L Total Protein 6.1 5.6 L (6.0-8.3) gm/dl Albumin 3.7 3.4 (3.4-5.0) gm/dl Intake and Output 11/06/23 11/07/23 11/07/23 22:59 06:59 14:59 Intake Total 31.633 / 92.155 60.522 / 92.155 .61 / 615 Output Total 265 / 415 75 / 415 Balance -233.367 / -322.845 -14.478 / -322.845 .61 / 61 Intake: IV 31.633 / 92.155 60.522 / 92.155 25.615 / .615 DOPamine / D5W 400 mg In 250 ml 31.633 / 92.155 60.522 / 92.155 .615 / .615 @ 3 MCG/KG/MIN 6.514 mls/hr IV .Q24H [facility] Rx#:[id number] Oral 0 / 0 0 / 0 Output: Urine Amount (Catheter) 265 / 415 75 / 415 Vyas/Indwelling 265 / 415 75 / 415 # Bowel Movements 0 / 0 0 / 0 Other: Weight 58.8 kg 58.8 kg Weight Measurement Method [facility] Care Time/CCT Total # of Minutes Spent Total Time Spent with Patient: Total time spent is greater than 50% in coordination of care (as documented) at patient's floor/unit and/or counseling patient: Coding Level of Care Code 53961 Post Operative Follow-Up Diagnoses Malfunction of electrode lead of cardiac pacemaker T82.198A Pericardial effusion with cardiac tamponade I31.39; I31.4 Anticoagulant long-term use Z79.01 CPT Codes Dual Lead Pacemaker System - 53670 ([id number])
--- NOTE | 2023-11-07 10:00 | Nephrology Progress Note ---
Date of Service November 07, 2023 Assessment & Plan (1) Acute kidney injury: Plan: * IGNACIO attributed to ATN * Decreased UOP this AM * Non-oliguric yesterday following IV furosemide (40 mg followed by additional 80 mg) * Vays to gravity * Document strict I/O's * Provided additional IV furosemide PRN to encourage urine output * Hold spironolactone and Jardiance * Monitor metabolic profile daily (2) Hyperkalemia: Plan: * Hold spironolactone * Low potassium diet * Sodium zirconium sulfate TID * Furosemide PRN to encourage UOP * Recheck this afternoon (3) Chronic kidney disease with active medical management without dialysis, stage 2 (mild): Plan: * CKD stage G2/A3 (moderate impairment). Baseline Cr has been 0.8-1.0 w/ EGFR 65 cc/min. Urine sediment has been benign. UPCR 0.6. 06/04 renal US revealed cortical scarring c/w microvascular disease. 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 Lema (4) Pacemaker malfunction: Plan: * Cardiology consultation appreciated * Atrial paced this AM with adequate BP * Dopamine gtt weaning per ICU team (5) Paroxysmal atrial fibrillation: Plan: * On Apixaban therapy (6) Anemia: Plan: * Completed IV venofer earlier during admission * H/H stable (7) CAD (coronary artery disease): Admission and Anticipated Discharge Date Admission Date: October 25, 2023 Harsh Day was seen and evaluated in the ICU this morning with Dr. Coley. She was resting comfortably in bed. Barb endorsed some weakness and mild dyspnea. She notes that her shortness of breath is improving. She does not endorse chest pain. She did have a period of non-capture overnight. She remains on dopamine gtt this AM. Heart rate paced at ~60 bpm. BP acceptable. No fevers. Urine output reduced this AM (~90 ml since midnight). Vyas intact. Review of Systems Review of Systems: All systems reviewed & are unremarkable except as noted in HPI & below Limited due to fatigue Physical Exam Constitutional: well developed, + thin and + frail appearing; no acute distress Eyes: no scleral abnormality and no corneal abnormality ENMT: Mouth: no oral mucosal abnormality and oral mucous membranes not dry Neck: normal visual inspection and trachea midline Respiratory: normal respiratory effort Auscultation: lungs clear to auscultation bilaterally Cardiovascular: Rate/Rhythm: regular rate Heart Sounds: normal S1 and normal S2 Extremities: no edema Musculoskeletal: Extremities: no cyanosis and no clubbing Skin: + turgor decreased and + ecchymosis; no jaundice Neurologic: Motor/Sensory: no tremor and no asterixis Psychiatric: Orientation: alert and oriented x 3 Results & Data Vital Signs (Past 12 Hours) Vital Signs Temp Pulse Pulse Resp BP Pulse Ox O2 Del Method 11/07/23 07:43 60 39 H 89 L 11/07/23 06:00 62 25 H 124/69 94 BiPAP 11/07/23 05:30 62 23 92 BiPAP 11/07/23 05:00 72 29 H 113/66 93 BiPAP 11/07/23 04:30 62 29 H 94 BiPAP 11/07/23 04:28 62 28 H 96 11/07/23 04:00 37.1 C 65 34 H 108/57 L 91 High Flow Nasal Cannula 11/07/23 03:30 80 31 H 92 High Flow Nasal Cannula 11/07/23 03:00 80 29 H 119/63 94 High Flow Nasal Cannula 11/07/23 02:30 79 31 H 93 High Flow Nasal Cannula 11/07/23 02:30 80 96 High Flow Nasal Cannula 11/07/23 02:00 68 19 104/55 L 98 High Flow Nasal Cannula 11/07/23 01:30 80 22 100 High Flow Nasal Cannula 11/07/23 01:00 73 24 102/56 L 100 High Flow Nasal Cannula 11/07/23 00:30 80 22 98 High Flow Nasal Cannula 11/07/23 00:00 36.4 C L 81 24 119/98 94 High Flow Nasal Cannula 11/06/23 23:30 80 25 H 94 High Flow Nasal Cannula 11/06/23 23:09 81 18 93 High Flow Nasal Cannula 11/06/23 23:00 80 23 109/70 93 High Flow Nasal Cannula 11/06/23 22:30 80 25 H 91 High Flow Nasal Cannula 11/06/23 22:00 80 25 H 126/80 94 High Flow Nasal Cannula O2 Flow Rate FiO2 11/07/23 07:43 80 11/07/23 06:00 80 11/07/23 05:30 80 11/07/23 05:00 80 11/07/23 04:30 80 11/07/23 04:28 80 11/07/23 04:00 50 80 11/07/23 03:30 50 80 11/07/23 03:00 50 80 11/07/23 02:30 50 80 11/07/23 02:30 50 80 11/07/23 02:00 50 80 11/07/23 01:30 50 80 11/07/23 01:00 50 80 11/07/23 00:30 50 80 11/07/23 00:00 50 80 11/06/23 23:30 50 80 11/06/23 23:09 50 80 11/06/23 23:00 50 80 11/06/23 22:30 50 80 11/06/23 22:00 50 80 Laboratory Results Laboratory Results - last 24 hr 11/06/23 11/06/23 11/06/23 12:17 14:32 16:19 WBC 7.35 RBC 3.29 L Hgb 8.7 L Hct 29.2 L MCV 88.8 MCH 26.4 MCHC 29.8 L RDW Std Deviation 52.2 H RDW Coeff of Debby 19.3 H Plt Count 149 MPV 9.7 Immature Gran % (Auto) 1.4 Neut % (Auto) 80.4 Lymph % (Auto) 5.7 Preble % (Auto) 12.2 Eos % (Auto) 0.0 Baso % (Auto) 0.3 Neut # (Auto) 5.91 Lymph # (Auto) 0.42 L Preble # (Auto) 0.90 H Eos # (Auto) 0.00 Baso # (Auto) 0.02 Immature Gran # (Auto) 0.10 Absolute Nucleated RBC 0.07 Nucleated RBC % (auto) 1.0 Polychromasia Anisocytosis Pappenheimer Bodies Tear Drop Cells Ovalocytes ABG pH 7.21 L ABG pCO2 50 H ABG pO2 63 L ABG HCO3 20 ABG O2 Saturation 91.5 ABG Base Excess -7.6 Cash Test Pos Oxygen Given 10L Sodium 131 L Potassium 5.7 H Chloride 105 Carbon Dioxide 20 L Anion Gap 6 BUN 27 H Creatinine 1.45 H Est Cr Clr Drug Dosing 22.0 Est GFR ( Amer) 37.7 Est GFR (Non-Af Amer) 32.5 BUN/Creatinine Ratio 18.6 Glucose 201 H POC Glucose 154 H Lactate 2.3 H* 1.3 Calcium 7.9 L Phosphorus 2.8 Magnesium 2.4 Total Bilirubin 0.9 AST 35 ALT 32 Alkaline Phosphatase 124 H Total Protein 6.1 Albumin 3.7 Globulin 2.4 L Albumin/Globulin Ratio 1.5 11/06/23 11/07/23 20:12 04:00 WBC 9.73 RBC 3.14 L Hgb 8.8 L Hct 28.1 L MCV 89.5 MCH 28.0 MCHC 31.3 L RDW Std Deviation 52.1 H RDW Coeff of Debby 21.1 H Plt Count 143 MPV 10.8 Immature Gran % (Auto) 3.1 Neut % (Auto) 79.3 Lymph % (Auto) 4.2 Preble % (Auto) 13.1 Eos % (Auto) 0.0 Baso % (Auto) 0.3 Neut # (Auto) 7.72 H Lymph # (Auto) 0.41 L Preble # (Auto) 1.27 H Eos # (Auto) 0.00 Baso # (Auto) 0.03 Immature Gran # (Auto) 0.30 H Absolute Nucleated RBC 0.07 Nucleated RBC % (auto) 0.7 Polychromasia 1+ Anisocytosis Present Pappenheimer Bodies 1+ Tear Drop Cells 1+ Ovalocytes 1+ ABG pH ABG pCO2 ABG pO2 ABG HCO3 ABG O2 Saturation ABG Base Excess Cash Test Oxygen Given Sodium 134 L Potassium 5.5 H Chloride 107 Carbon Dioxide 20 L Anion Gap 7 BUN 28 H Creatinine 1.68 H Est Cr Clr Drug Dosing 19.0 Est GFR ( Amer) 31.6 Est GFR (Non-Af Amer) 27.2 BUN/Creatinine Ratio 16.7 Glucose 123 H POC Glucose 126 H Lactate Calcium 7.5 L Phosphorus 2.8 Magnesium 2.2 Total Bilirubin 1.3 H AST 437 H ALT 239 H Alkaline Phosphatase 135 H Total Protein 5.6 L Albumin 3.4 Globulin 2.2 L Albumin/Globulin Ratio 1.5 PG Care Time/CCT Total # of Minutes Spent Total Time Spent with Patient: Total time spent is greater than 50% in coordination of care (as documented) at patient's floor/unit and/or counseling patient: Coding Level of Care Code 04360 SUB INP/OBS CARE 3/50MIN Diagnoses Acute kidney injury N17.9 Hyperkalemia E87.5 Chronic kidney disease with active medical management without dialysis, stage 2 (mild) N18.2 Pacemaker malfunction T82.111A Paroxysmal atrial fibrillation I48.0 Anemia D64.9 CAD (coronary artery disease) I25.10
[2023-11-07] MEDS: guaiFENesin 600 MG TABCR PO SCH (10:01)
[2023-11-07] MEDS: guaiFENesin SUGAR FREE 200 MG/10 ML UDC PO SCH (12:29)
[2023-11-07] MEDS: SODIUM ZIRCONIUM CYCLOSILICATE 10 GM PACKET PO SCH (12:32)
--- NOTE | 2023-11-07 12:47 | Ultrasound Report ---
BILATERAL UPPER EXTREMITY VENOUS DOPPLER ULTRASOUND CLINICAL HISTORY: Upper extremity swelling. COMPARISON STUDY: Right upper extremity venous Doppler ultrasound February 15, 2020. TECHNIQUE: Sonography of the venous systems of both upper extremities was performed. FINDINGS: Portions of the left subclavian and right internal jugular vein were not well visualized on this examination. Note is made of superficial thrombus within the left basilic vein which extends fr om the mid to upper arm. No additional sites of venous thrombus within the left upper extremity are n oted. There is deep venous thrombus within the right brachial vein. A 1.4 x 0.9 x 0.8 cm hypoechoic f ocus within the right biceps muscle is noted. This contains no color flow. There is bilateral upper e xtremity edema. IMPRESSION: 1. Deep venous thrombus within the right brachial vein. 2. Superficial thrombus within the left basilic vein, as described above. 3. Bilateral upper extremity edema. 4. 1.4 x 0.9 x 0.8 cm hypoechoic focus within the right biceps. This is nonspecific but may reflect a small intramuscular hematoma. ACT 112: Negative or not required by law. Electronically signed by: Gene Youssef M.D. 11/07/2023 12:46 PM
--- NOTE | 2023-11-07 13:55 | Electrocardiogram Report ---
Test Reason : Blood Pressure : / mmHG Vent. Rate : 060 BPM Atrial Rate : 000 BPM P-R Int : 202 ms QRS Dur : 040 ms QT Int : 326 ms P-R-T Axes : 000 -18 150 degrees QTc Int : 326 ms AV dual-paced rhythm Abnormal ECG When compared with ECG of 03-NOV-2023 13:14, No significant change Confirmed by Giovanny Springer ([id number]) on 11/07/2023 1:55:40 PM Referred By: REFERRED SELF Confirmed By:Giovanny Springer
[2023-11-07 14:38] LABS: BUN Creatinine Ratio 17.2 (10-20); Creatinine Clr Calc Pharmacy 16.6 ml/min; Est GFR (African American) 26.8 ml/min; Est GFR (Non-African American) 23.2 ml/min; Potassium 5.9 mmol/L (3.5-5.1)
[2023-11-07 14:43] LABS: INR 1.7 (0.9-1.1); Prothrombin Time 17.7 Seconds (9.0-12.0)
[2023-11-07 14:58] LABS: Albumin Level 3.5 gm/dl (3.4-5.0); Bilirubin Direct 1.1 mg/dl (0-0.2); Bilirubin,Total 1.8 mg/dl (0.2-1.0); Total Protein 5.7 gm/dl (6.0-8.3)
--- NOTE | 2023-11-07 16:00 | Pharmacy Report ---
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 - Subjective Regarding previous anticoagulation: Patient on day # 1 THERAPEUTIC argatroban IV for new onset DVT. Start Argatroban-IV for indication. Goal PTT Ratio as determined by Dr. Rodriguez: 1.5-2.0 (range is 1.5-3). Pertinent PMH: on apixaban at home for Afib - Objective Laboratory Results:: Last 24 Hours 11/07/23 11/07/23 04:00 13:52 Hgb 8.8 L Hct 28.1 L Plt Count 143 BUN 28 H 33 H Creatinine 1.68 H 1.92 H Last 72 Hours 11/05/23 11/06/23 11/06/23 05:26 06:33 12:17 Plt Count 140 130 149 INR Total Bilirubin 0.9 0.9 Direct Bilirubin AST 33 35 ALT 29 32 11/07/23 11/07/23 04:00 13:52 Plt Count 143 INR 1.7 H Total Bilirubin 1.3 H 1.8 H Direct Bilirubin 1.1 H AST 437 H 2337 H ALT 239 H 1088 H - Recent Anticoagulant Meds Apixaban is a home med (for Afib), but this was recently held - Assessment & Plan Regarding PROPHYLACTIC or THERAPEUTIC Argatroban-IV for [indication]: Managed per the [facility] Direct Thrombin Inhibitor Usage Guidelines II.E.13.01(j). D/C all heparin & low molecular weight heparin (LMWH) products. Start Argatroban-IV infusion at 0.25 mcg/kg/min. o If Active thrombosis, start initial dosage DOLLY. Usual dose is 0.5mcg/kg/min if Moderate-Severe hepatic impairment (Child-Moya Class B/C). Alternate anticoagulation was considered due to hepatic dysfunction. Confirmed w Dr. Rodriguez - risk/benefit favors starting argatroban. Goal PTT Ratio as determined by ordering provider: 1.5-2.0 (Range is 1.5- 3). Monitoring: Steady state achieved in 1-3 hours in most patients without hepatic dysfunction. Clearance is reduced up to 4-fold in patients with hepatic impairment (i.e., steady- state may not be achieved for 4-12hrs). Will order 1st PTT 4 hours after initiation and will continue to monitor q4h for longer than usual to ensure accumulation is avoided / minimize.d Further dosage adjustments per Clinical Pharmacy & the [facility] Direct Thrombin Inhibitor Usage Guidelines II.E.13.01(j). Adverse Effects: As there is no specific antidote for DTIs or DTI therapy, careful attention is paid to the achievement of optimal dosing without overdosing. Any DTI therapy should be discontinued should a major clinical bleeding episode take place. Contraindications to DTI Therapy: Overt, major bleeding, hypersensitivity to the medication or any component. Labs: Baseline/Ongoing Labs: Per P&T approved Anticoagulation Safety, Laboratory Test for Anticoagulants We will continue to monitor this patient and make adjustments as needed. Thank you.
[2023-11-07 16:02] LABS: Partial Thromboplastin Ratio 1.3; Partial Thromboplastin Time 37 Seconds (21-31)
[2023-11-07] MEDS: BUMETANIDE 2 MG in SYRINGE 0 ML IV ONE (16:27)
--- NOTE | 2023-11-07 18:16 | Billing Data ---
Date of Service November 07, 2023 Coding Level of Care Code 89234 SUB INP/OBS CARE 09/08MIN
[2023-11-07] MEDS ORDERED: fentaNYL citrate PF 100 MCG/2 ML VIAL ONE (19:22)
--- NOTE | 2023-11-07 19:54 | Death Pronouncement Note ---
Date of Service November 07, 2023 Pronouncement Note Admission Date Admission Date: October 25, 2023 PRONOUNCEMENT NOTE - Date: 11/07/2023 Time: 1937 I was contacted by nursing staff regarding the patients declining status and concerns for imminent demise. In short, patient underwent pacemaker with complication of pericardial effusion and when she had pericardial drain which had been removed, pacemaker for malfunction with revision. I was notified by the nurse that the patient had become bradycardic and unresponsive. Initial blood pressure with systolics in the 70s. Transcutaneous pacing was started and despite capturing with heart rate in the 90s, patient did not have a pulse and was agonal breathing. Patient is DNR/DNI. Assessment: Upon assessment, the patient was found to be in a terminal state. Pupils were fixed and dilated without response. No palpable pulses appreciated. No spontaneous breaths noted. Heart sounds were absent. No response to painful stimuli. Time of : 1937 as pronounced by myself. Patients primary service was contacted and made aware of patient demise. Pronouncement section of the Certificate was filled out and signed by myself. Cause of : Primary -complete heart block Secondary -ischemic cardiomyopathy Contributing Causes of -pericardial effusion, CHF, IGNACIO, ventricular lead malfunction Please feel free to contact me with any questions regarding the above-mentioned course. Contributing Factors (1) Acute kidney injury: (2) Chronic kidney disease with active medical management without dialysis, stage 2 (mild): (3) Hyperkalemia: (4) Pacemaker malfunction: (5) CAD (coronary artery disease): (6) Paroxysmal atrial fibrillation: Additional Data Attending physician: Darin Fuchs DO Coding Level of Care Code None Diagnoses Acute kidney injury N17.9 Chronic kidney disease with active medical management without dialysis, stage 2 (mild) N18.2 Hyperkalemia E87.5 Pacemaker malfunction T82.111A CAD (coronary artery disease) I25.10 Paroxysmal atrial fibrillation I48.0
--- NOTE | 2023-11-08 12:41 | Electrocardiogram Report ---
Test Reason : Blood Pressure : / mmHG Vent. Rate : 110 BPM Atrial Rate : 097 BPM P-R Int : 000 ms QRS Dur : 160 ms QT Int : 398 ms P-R-T Axes : 000 000 144 degrees QTc Int : 538 ms Suspect unspecified pacemaker failure Undetermined rhythm Indeterminate axis Non-specific intra-ventricular conduction block Possible Lateral infarct , age undetermined Abnormal ECG When compared with ECG of 03-NOV-2023 13:14, QRS duration has increased Borderline criteria for Lateral infarct are now Present Confirmed by Giovanny Springer ([id number]) on 11/08/2023 12:41:14 PM Referred By: REFERRED SELF Confirmed By:Giovanny Springer
--- NOTE | 2023-11-08 19:28 | Discharge Summary ---
Date of Service November 07, 2023 Admission HPI Per Admitting Provider Marilia is an 87-year-old female with past medical history of syncope/collapse with ventricular tachycardia CHF, paroxysmal atrial fibrillation, Mobitz 2 heart block s/p dual-chamber pacemaker, hypertension who presents to the ER after she tripped using her walker and fell yesterday without lightheadedness/dizziness/syncope but he was sore and on anticoagulation so presented to the ER for further evaluation. Found to have an abnormal EKG, IGNACIO, and hypotension on ER eval. Day reports her walker tilted and she fell to the side and hit her side/butt. No lightheeadedness or dizziness. No syncope/presycnope. Son helped her up and noted she seemed weak and unstead, but not lightheaded or confused. Helped her get up and walk to the bathroom, she did OK using the restroom but coming out seemed 'unstable' and weak on both sides. They lifted herup and sat her in a chair, but a pillow under her butt for comfort and she slept OK through the night. Continued to have buttock pain this morning so came inot the ER No chest pain or chest pressure No shortness of breath Just started to have a slight cough since last night, nonproducive No fever, chills, or night sweats Does endorse 1 episode of vomiting a few nights with nausea, no other vomiting THiat episode had no blood or melena. +Diarrhea for the first time around 2-3 nights ago. No bloody or black BMs. No adry colored BMs. Endorses chronic leg/ankle swelling, feels this is actually OK. Feels dehydrated, does not feel fluid overloaded. Is NOT taking lasix Is NOT taking any BILL/ARB/ARNI She IS taking spironolactone Eliquis took this AM Medical History: Reviewed Medications: Reviewed Surgical History: Reviewed Family history: Reviewed Allergies: Reviewed. Social History: No tobacco or ETOH Code Status: DNR/DNI Principal Diagnosis bradycardia Discharge Data Allergies Allergy/AdvReac Type Severity Reaction Status Date / Time Penicillins Allergy Intermediate Hives; Verified 10/25/23 11:02 SYNCOPE heparin AdvReac Severe Thrombocytopenia; Verified 10/25/23 11:02 NEUTROPENIA Consultations 10/25/23 10:59 ED Decision to Admit Stat 10/25/23 14:23 Consult Nephrology Routine 10/25/23 16:49 Consult Cardiology Routine 11/01/23 12:15 Consult Materials Planner/Production Planner Stat 11/06/23 13:12 Consult Materials Planner/Production Planner Routine Procedures Performed Operation Date: 11/03/23 07:30 Actual Procedures p Lead Reposition RA/RV - Korey Coley MD Ordered Studies 10/25/23 09:19 CT cervical spine wo con Stat CT head/brain wo con Stat 10/25/23 09:20 CT abd pelvis wo con Stat 11/01/23 07:00 EP Lab Images for PACS ONCE 11/03/23 07:15 EP Lab Images for PACS ONCE 11/06/23 13:05 sono, invasive monitoring [US point of care ultrasound] Routine 11/07/23 08:42 US venous doppler UE BI Routine Hospital Course (1) Acute kidney injury: (2) Chronic kidney disease with active medical management without dialysis, stage 2 (mild): (3) Hyperkalemia: (4) Pacemaker malfunction: (5) CAD (coronary artery disease): (6) Paroxysmal atrial fibrillation: Plan Patient had a long and cynthia hospital course due to admission from pacemaker malfunction and symptomatic bradycardia and subsequent setbacks and complicat ions. She had a very abrupt decline as outlined in ICU note 11/06, and passed in the evening of 11/06. Last full assessment and plan as per below Pt is a 87 yo female with a past medical history of pacemaker for Mobitz type 2 block, previous syncope with ventricular tachycardia, CKD stage 2, CHF, paroxysmal afib, and HTN who presents to the hospital on 10/24 for mechanical fall and admitted for PT/OT recs and for pacemaker malfunction. #Mechanical fall with walker - CT head negative - CTAP significant for S3 fracture - Fall precautions - PT/OT; recommend rehab #Pacemaker Malfunction - presented with pacemaker loss of capture, pacing output maximized with subsequent capture, paced in the 60s overnight - Pacemaker revision performed on 11/01/23. Pt w/pericardial effusion requiring pericardicentesis and drain placement occurred; pt in ICU with assistant director of nursing consult - Pacemaker revision 11/03/23 with successful lead placement and capture. - Continue management per assistant director of nursing, shell machine operator #IGNACIO in patient with CKD, resolved - Likely secondary to volume contraction, potentially also exacerbated by red uced cardiac output in the setting of pacemaker malfunction. - Nephrology consulted, appreciate recs: - Encourage PO fluids - Jardiance, spironolactone held in the setting of IGNAICO okay restart at discharge #Hyperkalemia - Improved, today was 5.2 - Lokelma discontinued - Low K diet - Consider lowering dose of spironolactone at discharge #Anemia, chronic: - Hgb 9.0 on admission, then 7.1 (10/26), 7.6 - IV Venofer x4 days, day 4 of 4 today - H&H checks, transfuse for Hgb <7 or if symptomatic - stool occult positive, recommend outpatient workup/colonoscopy since hgb stable here VTE ppx: Eliquis Total Time Total Time Spent Total Time Spent (In Minutes): <30 Discharge Plan Discharge Items Patient Disposition: Other Date/Time: 11/07/23 19:38 Coding Level of Care Code None Diagnoses Acute kidney injury N17.9 Chronic kidney disease with active medical management without dialysis, stage 2 (mild) N18.2 Hyperkalemia E87.5 Pacemaker malfunction T82.111A CAD (coronary artery disease) I25.10 Paroxysmal atrial fibrillation I48.0
== END 2023-11-07 21:40 | disposition expired | DRG 242 ==
LOC: ED 09:07 → EDINP 11:40 → SUATTDRO 11:40 → 2S 14:52 → 1E 11-01 12:44 → 2E 11-05 23:29 → 1E 11-06 13:02